=== PATIENT | female | born 1950 | race African-American/Black ===

== ENCOUNTER 2016-11-03 06:37 | Day surgery (SDC) | payer MEDICARE ==
[~2016-11-03 06:37] MED LIST: Acetaminophen TAB* 325 MG PO PRN; Buffered Lidocaine 1% SYR 3ML* 3 ML/SYR SYRINGE INTRADERM ONE
[2016-11-03] MEDS ORDERED: Midazolam* 1 MG/ML 2 ML VIAL (2 MG) ONE ×3 (07:28→08:14)
[2016-11-03 08:42] VITALS: BP 126/64
[2016-11-03] MEDS ORDERED: Phenylephrine 2.5% OPTH.SOL* 2 ML BTL ONE (09:48)
[2016-11-03] MEDS ORDERED: Lidocaine 1% MPF* 2 ML VIAL ONE (09:48)
[2016-11-03] MEDS ORDERED: Povidone Iodine 5% OPTH* 30 ML BTL ONE (09:48)
[2016-11-03] MEDS ORDERED: acetaZOLAMIDE TAB* 250 MG ONE (09:48)
[2016-11-03] MEDS ORDERED: Cyclopentolate 1% OPTH.SOL* 2 ML BTL ONE (09:48)
[2016-11-03] MEDS ORDERED: Flurbiprofen 0.03% OPTH.SOL* 2.5 ML BTL ONE (09:48)
[2016-11-03] MEDS ORDERED: Neomycin/Polymy/Dex OPHTH.OIN* 3.5 GM ONE (09:49)
[2016-11-03] MEDS ORDERED: Tetracaine 0.5% OPTH.SOL 4 ML* 1 DROP BTL ONE (09:49)
--- NOTE | 2016-11-04 03:14 | OP ---
DATE OF OPERATION: 11/03/16 - [facility] DATE OF : 52 SURGEON: Cliff Sesay MD ANESTHESIOLOGIST: Linnette Cross MD ANESTHESIA: Monitored anesthesia care. 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 OPERATIVE PROCEDURE: Cataract extraction of the left eye. IMPLANTS: SN60WF 25.0 diopter lens to the left eye. COMPLICATIONS: None. DESCRIPTION OF PROCEDURE: The patient was given phenylephrine 2.5% and cyclopentolate 1% eyedrops into the operative eye in the preoperative area. The patient was brought to the operating room, where a time-out was taken to identify the correct patient site and side of the surgery. The patient's left eye was prepped and draped in the usual sterile fashion with 5% Betadine. A second time- out was taken to verify the correct patient, site and side of the surgery and correct lens selection. A lid speculum was placed to the left eye. A 1-mm paracentesis blade was used to make a clear corneal incision in the inferotemporal position. Preservative-free 1% lidocaine was injected into the anterior chamber. DuoVisc was then injected into the anterior chamber. A 2.75- mm keratome blade was used to make a triplanar incision at the superotemporal position. A cystotome was used to initiate a capsulorrhexis, which was completed with Utrata forceps in a continuous and curvilinear manner. Hydrodissection of the lens was then performed with BSS on a cannula. The lens could be spun in the capsular bag. The phacoemulsification handpiece was then used with a divide and conquer technique to remove the nucleus in its entirety with 15.58 CDE. The I/A handpiece was then used to remove the residual cortical lens material. DuoVisc was then injected to inflate the capsular bag. The planned SN60WF 25.0 diopter lens was then injected into the capsular bag. The residual DuoVisc was then removed from the eye with the I/A handpiece. The corneal incisions were then hydrated and no leaks occurred at physiologic pressure around 20 mmHg per palpation. The lid speculum was then removed and drapes removed. Maxitrol ointment was then placed to the surface of the operative eye. An adhesive patch and shield were then placed on the operative eye. The patient was taken to the postoperative area in stable condition. [id number]/[facility] #: [id number] ALLIE
== END 2016-11-03 08:37 | disposition home or self-care (01) ==
LOC: OREAST 06:37
PROVIDERS: ATTEND Student in an Organized Health Care Education/Training Program
DX: H25.12 Age-related nuclear cataract, left eye (principal); E11.3293 Type 2 diabetes mellitus with mild nonproliferative diabetic retinopathy without macular edema, bilateral; H50.15 Alternating exotropia; F17.210 Nicotine dependence, cigarettes, uncomplicated; Z79.4 Long term (current) use of insulin; I10 Essential (primary) hypertension; B18.2 Chronic viral hepatitis C; D50.8 Other iron deficiency anemias; E78.1 Pure hyperglyceridemia; Z85.3 Personal history of malignant neoplasm of breast
CPT/HCPCS: A9270-GY; J2250; V2632

== ENCOUNTER 2016-12-17 06:26 | Observation (INO) | payer MEDICARE ==
--- NOTE | 2016-12-17 07:13 | ED ---
HPI Cardiac - HPI Summary HPI Summary: Hypertensive, diabetic pt here w/ racing heart this morning. Got up to go to the bathroom around 5:30am (urinated) and when she returned to sit on her bed, she felt a little off kilter, her eyes got cloudy and then her heart started pounding - this lasted about 5 minutes. She had gotten up a few more times in the night to urinate which she reports is somewhat normal for her. She denies fever, chills, nausea, vomiting, pain in her chest, arms, jaw or back as well as ahmet diaphoresis but admits she felt a little warm. Took 4 81mg ASA and called 911. She also notes she has baseline tinnitus and this was worse just prior to the event. Reports when her BP is elevated, her tinnitus is louder and her feet tingle w/ pins and needles. She has felt this happening over the past 1 month since starting triamterene/HCTZ. Also reports her diabetes has been worse over the past 1-2 months w/ glucose running in the 200's/300's and HGA1C was 9 recently. Quit smoking 19 days ago and has been eating more since - believes she's had a 5lb weight gain. Also reports she had a coffee yesterday which is not normal for her - this coffee included sugar and was accompanied by a donut(s) which is also more sugar than she's accustomed to consuming. Had a bite of chicken which was salty as well. Drinks 3-4 16 oz water a day. She does not have ahmet swelling in her legs but admit she's had pitting at times. H /o abnormal heart rate years ago - had cardiac monitoring in hospital and result of this work up was to start atenolol which she's taken since. Denies h/ o ID or other known arrhythmias. Denies recent h/o illness. Eating and drinking well - urinating and moving bowels well w/o pain or difficulty. Reports she had a pre-op appointment just yesterday - ECG was "good". She is anticipating knee surgery Dec 25 2016. - History of Current Complaint Chief Complaint: EDDysrhythmPalp Stated Complaint: PALPITATIONS Time Seen by Provider: 12/17/16 06:57 Hx Obtained From: Patient Pain Intensity: 0 - Allergy/Home Medications Allergies/Adverse Reactions: Allergies Allergy/AdvReac Type Severity Reaction Status Date / Time Enalapril Allergy Severe lisp Verified 12/17/16 06:44 swelling Diltiazem Allergy Unknown Verified 12/17/16 06:44 Reaction Details Verapamil Allergy Unknown Verified 12/17/16 06:44 Reaction Details PMH/Surg Hx/FS Hx/Imm Hx Previously Healthy: Yes Endocrine/Hematology History: Reports: Hx Diabetes - type 2 - IDDM, Hx Anemia - chronic Denies: Hx Anticoagulant Therapy, Hx Blood Disorders, Hx Thyroid Disease, Hx Unexplained Bleeding Cardiovascular History: Reports: Hx Cardiomegaly - slightly enlarged per md, Hx Hypertension Denies: Hx Atrial Fibrillation, Hx Myocardial Infarction, Hx Pacemaker/ICD, Hx Syncope GI History: Reports: Hx Gastroesophageal Reflux Disease, Hx Irritable Bowel, Other GI Disorders - 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 lumpectomy under right arm 2014. AVM repair 02/2016. right cataract surgery with lens implant 02/2016. right wrist surgery - carpal tunnel 1999. tubal ligation 1977 in [place]. repair of incision from tubal surgery Hx Anesthesia Reactions: No Infectious Disease History: Yes Infectious Disease History: Reports: Hx Hepatitis - Hep C possible from blood transfusions Denies: Traveled Outside the [place] in Last 30 Days - Social History Alcohol Use: None Substance Use Type: Reports: None Smoking Status (MU): Former Smoker Amount Used/How Often: 1/2 ppd Length of Time of Smoking/Using Tobacco: Quit 11/28/2016 Have You Smoked in the Last Year: Yes Review of Systems Constitutional: Negative Negative: Fever, Chills, Fatigue Positive: Blurred Vision - see HPI Cardiovascular: Other - see HPI Respiratory: Negative Negative: Shortness Of Breath, Cough Gastrointestinal: Negative Negative: Abdominal Pain, Vomiting, Diarrhea, Nausea Genitourinary: Negative Musculoskeletal: Negative Skin: Negative Neurological: Other - see HPI Negative: Headache, Weakness, Paresthesia, Numbness, Syncope, Slurred Speech Psychological: Normal All Other Systems Reviewed And Are Negative: Yes Physical Exam Triage Information Reviewed: Yes Vital Signs On Initial Exam: Initial Vitals Temp Pulse Resp BP Pulse Ox 99 F 77 16 192/86 99 12/17/16 06:29 12/17/16 06:29 12/17/16 06:29 12/17/16 06:29 12/17/16 06:29 Vital Signs Reviewed: Yes Appearance: Positive: Well-Appearing, No Pain Distress, Well-Nourished Skin: Positive: Warm, Dry Head/Face: Positive: Normal Head/Face Inspection Eyes: Positive: Normal, EOMI, Conjunctiva Clear ENT: Positive: Hearing grossly normal, Pharynx normal - mucosa moist Neck: Positive: Supple, Nontender - no gross thyromegaly Respiratory/Lung Sounds: Positive: Clear to Auscultation, Breath Sounds Present. Negative: Rales, Rhonchi, Wheezes Cardiovascular: Positive: Normal, RRR, Pulses are Symmetrical in both Upper and Lower Extremities, Leg Edema Left - +0.5 pitting edema; no pedal swelling, Leg Edema Right - +1 pitting Rt; no pedal edema, S1, S2. Negative: Murmur, Rub Abdomen Description: Positive: Nontender, Soft Bowel Sounds: Positive: Present Musculoskeletal: Positive: Normal, Strength/ROM Intact Neurological: Positive: Normal, Sensory/Motor Intact, Alert, Oriented to Person Place, Time, CN Intact II-III Psychiatric: Positive: Normal Diagnostics - Vital Signs Vital Signs Temp Pulse Resp BP Pulse Ox 12/17/16 06:29 99 F 77 16 192/86 99 - Laboratory Result Diagrams: 12/17/16 06:40 12/17/16 06:40 Lab Statement: Any lab studies that have been ordered have been reviewed, and results considered in the medical decision making process. Disposition - Course Course Of Treatment: Pt presents with worsening of tinnitus, cloudy vision and 5 minutes of heart racing starting around 5:30am after returning to bed from getting up to urinate. She took 4 tabs of 81mg of ASA and called 911. While here , she is comfortable and denies chest pain, SOB, N/V, diaphoresis. She admits to poorly controlled DM and sx of hypertension past month since taking new medication, triamterene/HCTZ. Her labs indicate a slowly progressing anemia and mild worsening of renal function (this could also be the effect of dehydration from her diuretic). She is scheduled to have Rt knee surgery Dec 25 2016 and just had a pre-op appt w/ PCP yesterday - per pt ECG was normal. Her ECG is NSR here today. Other than abnormals mentioned, her labs are unremarkable except her 2nd troponin which went from 0.00 to 0.04. Although this may be a situational effect of pt consumin caffeine and eating more salt than usual yesterday, spoke with Dr. Daniel who will admit the pt for further cardiac w/u. Pt agrees w/ plan. - Diagnoses Provider Diagnoses: Cardiac abnormality, Hypertension, Insulin dependent diabetes mellitus - Physician Notifications Discussed Care Of Patient With: Dr. Jones. Dr. Daniel Discharge - Discharge Plan Condition: Stable Disposition: ADMITTED TO [facility]
[2016-12-17 07:19] LABS: Hematocrit 30 % (35-47); Hemoglobin 9.8 g/dl (12.0-16.0); Mean Corpuscular HGB Conc 33 g/dl (31-36); Mean Corpuscular Hemoglobin 25 pg (27-31); Mean Corpuscular Volume 78 fL (80-97); Mean Platelet Volume 8 um3 (7.4-10.4); Red Blood Count 3.87 10^6/ul (4.0-5.4); Red Cell Distribution Width 18 % (10.5-15); White Blood Count 10.1 10^3/ul (3.5-10.8)
[2016-12-17 07:33] LABS: Troponin I 0.01 ng/mL (<0.04)
[2016-12-17 07:34] LABS: Albumin 3.5 g/dL (3.2-5.2); BUN/Creatinine Ratio 16.7 (8-20); EGFR African American 37.8 (>60); EGFR Non-African American 29.4 (>60); Globulin 3.6 g/dL (2-4); Magnesium 2.2 mg/dL (1.9-2.7); Potassium 3.9 mmol/L (3.5-5.0); Total Bilirubin 0.3 mg/dL (0.2-1.0); Total Protein 7.1 g/dL (6.4-8.9)
[2016-12-17 07:45] LABS: TSH (Thyroid Stimulating Horm) 2.7 mcIU/mL (0.34-5.60)
--- NOTE | 2016-12-17 07:46 | RAD ---
INDICATION: Tachycardia COMPARISON: None TECHNIQUE: An AP portable view obtained at 0700 hours is submitted. FINDINGS: Bones/Soft Tissues: There are no acute bony findings. There is right breast and axillary surgery. Cardiomediastinal: The cardiomediastinal silhouette is normal. Lungs: There are no infiltrates. There is mild platelike atelectasis in left lung base. Pleura: There are no pleural effusions. Other: None IMPRESSION: NO ACTIVE DISEASE.
[2016-12-17] MEDS ORDERED: NS 0.9% 250 ML* 150 ML IV SCH (09:00)
[2016-12-17 09:11] LABS: Urine Bacteria Absent (Absent); Urine Bilirubin Negative (Negative); Urine Glucose 1+(50 mg/dL) (Negative); Urine Nitrite Negative (Negative)
[2016-12-17] MEDS ORDERED: Acetaminophen TAB* 325 MG PO PRN (10:24)
[2016-12-17] MEDS ORDERED: Famotidine TAB* 20 MG PO PRN (10:25)
[2016-12-17] MEDS ORDERED: Dextrose 50% Syringe 50 ML* 25 GM/50 ML SYRINGE IV PUSH PRN (10:28)
[2016-12-17] MEDS: Atenolol TAB* 50 MG PO SCH ×2 (11:16→20:29)
[2016-12-17] MEDS: Ferrous Sulfate TAB* 325 MG PO SCH (11:16)
[2016-12-17] MEDS: amLODIPine TAB* 5 MG PO SCH (11:16)
[2016-12-17] MEDS: ANASTROZOLE 1 MG PO SCH (11:17)
[2016-12-17] MEDS: Insulin LISPRO* 1 UNITS UNIT SUBCUT SCH ×3 (12:09→20:32)
--- NOTE | 2016-12-17 14:02 | HP ---
HISTORY AND PHYSICAL: DATE OF ADMISSION: 12/17/16 PRIMARY CARE PROVIDER: Dr. Garcia. ONCOLOGIST: Dr. Emery. INFECTIOUS DISEASE DOCTOR: Dr. Wick. ORTHOPEDIC SURGEON: Dr. Jarvis. CHIEF COMPLAINT: Increased blood pressure, palpitations, and blurry vision. HISTORY OF PRESENT ILLNESS: Ms. Moreira is a 66-year-old female who has past medical history significant for type 2 diabetes, most recently uncontrolled hypertension, chronic hepatitis C, iron deficiency anemia and chronic kidney disease who presents to the emergency room with complaints of increased blood pressure, increased tinnitus, blurry vision and palpitations. The patient states that she awakened at approximately at 5:30 a.m. with the need to go to the bathroom. She states that she got up, she ambulated to the toilet, she urinated and walked back to her bed. As she was sitting on the edge of the bed, she began to notice that her tinnitus was much louder. She states that when her tinnitus is louder, she notes that her blood pressure is elevated. She states that she then noticed that her vision was as if she were looking through smoke which was similar to how she felt prior to having her cataracts extracted. The patient then had pounding rapid heartbeat. The patient felt like she might pass out. She checked her pulse by palpating her carotids and she noted the heart rate to be very rapid and possibly irregular. The patient states that she took 4 baby aspirin and called 911. The patient states at this point she still has tinnitus that is louder than usual but overall is feeling much improved. She does, however, note that her blood pressure is still elevated just based on how she is feeling. PAST MEDICAL HISTORY: 1. Type 2 diabetes with diabetic neuropathy. 2. Hypertension. 3. Chronic hepatitis C. 4. Tinnitus. 5. Iron-deficiency anemia. 6. History of right breast cancer. 7. Questionable hyperlipidemia. 8. Chronic kidney disease - stage 3. PAST SURGICAL HISTORY: 1. Tubal ligation. 2. Carpal tunnel release on the right. 3. Left total knee replacement. 4. Right breast lumpectomy. 5. Bilateral cataract extractions. MEDICATIONS: 1. Vitamin C 500 mg p.o. daily. 2. Glucose 8 g p.o. t.i.d. p.r.n. low blood sugar. 3. Vitamin B12 2500 mcg sublingual daily. 4. Cod liver oil one cap p.o. daily. 5. Vitamin D3 1000 units p.o. daily. 6. Calcium plus D 1 tab p.o. daily. 7. Flonase 2 squirts both nostrils daily p.r.n. allergy symptoms. 8. Lantus 20 units subcutaneous q.h.s. 9. NovoLog 2 to 5 units subcutaneous t.i.d. a.c. p.r.n. high blood sugar. 10. Vitamin E 400 units p.o. daily. 11. Magnesium 250 mg p.o. daily. 12. Zinc 50 mg p.o. daily. 13. Triamterene/hydrochlorothiazide 37.5/25 one cap p.o. daily. 14. Clonidine 0.2 mg p.o. t.i.d. 15. Ranitidine 150 mg p.o. b.i.d. p.r.n. indigestion. 16. Ativan 0.5 mg p.o. q.h.s. 17. Amlodipine 10 mg p.o. daily. 18. Atenolol 50 mg p.o. b.i.d. 19. Arimidex 1 mg p.o. daily. ALLERGIES: ENALAPRIL, DILTIAZEM and VERAPAMIL. FAMILY HISTORY: Mom at the age of 38. She was an alcoholic. She also had diabetes. Father's history is unknown but she heard that he was murdered. SOCIAL HISTORY: The patient is a former smoker, she quit 19 days ago and is very happy with her success so far. She is a former alcoholic, she quit and has been sober since 02/25/12. 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 She is . She had 3 children. One son from kidney failure but she thinks that this was related to the use of illicit drugs at a young age. She has 2 living daughters. The patient's daughter Kristal Gaitan is her healthcare proxy. REVIEW OF SYSTEMS: The patient denies any fevers, chills, or anorexia. No chest pain. She does admit to lower extremity edema since starting the triamterene/hydrochlorothiazide. She admits to palpitations as noted above. No cough. No shortness of breath. No abdominal pain, nausea, vomiting, constipation, diarrhea or hematochezia. No hematuria, no dysuria. No focal weakness or sensory loss. She does complain of a sudden blurry vision. No dysphagia. She has noted that she has been getting severe muscle cramps at night but no joint pains out of the ordinary. However, she is scheduled to have a right total knee replacement with Dr. Jarvis on December 25. She has no rashes. She does also complain of anxiety at night. PHYSICAL EXAMINATION GENERAL: The patient is a well-developed, middle-aged female sitting in the stretcher, appearing to be in no acute distress. VITAL SIGNS: Blood pressure 167/69, pulse 67, respirations 18, temp 98.9, O2 sat is 99% on room air. HEENT: Pupils are equal, they are slightly misshapen, likely related to her prior cataract extraction. Extraocular muscles are intact. Oropharynx is clear. Oral mucosa is moist. The patient wears dentures. There is no submandibular, cervical or supraclavicular adenopathy. Thyroid is not enlarged. No thyroid nodules noted. PULMONARY: Lungs are clear to auscultation bilaterally. CARDIAC: Normal S1 and S2. Regular rate and rhythm. I do not appreciate any murmurs. There is trace bilateral lower extremity edema. ABDOMEN: Bowel sounds are present. Abdomen is soft, nontender, nondistended. MUSCULOSKELETAL: There is no cyanosis or clubbing of the digits. There is full active range of motion of all 4 extremities. NEUROLOGIC: Cranial nerves II through XII are grossly intact. Sensation is intact to light touch throughout. Strength is 5/5 and symmetric in both upper and lower extremities bilaterally. SKIN: Warm and dry. There are no rashes. PSYCH: The patient is alert. She is oriented x3. Affect appears appropriate. DIAGNOSTIC STUDIES/LAB DATA: Sodium 133, potassium 3.9, chloride 98, CO2 25, BUN 29, creatinine 1.74, glucose 182, lactic acid 1.7, calcium 10.0, magnesium 2.2, bilirubin 0.3, AST 20, ALT 17, alk phos 188. Troponin 0.01 up to 0.04. Albumin 3.5, TSH 2.7. WBC 10.1, hemoglobin 9.8, hematocrit 30, platelets 397. INR 0.87. Urinalysis reveals urine with specific gravity of 1.008, 2+ proteins, trace leukocyte esterase, absent bacteria. EKG reveals normal sinus rhythm without any acute ST-T wave abnormalities. Chest x-ray, no active disease. ASSESSMENT AND PLAN: Ms. Moreira is a 66-year-old female with a history of type 2 diabetes, hypertension, possibly hyperlipidemia and chronic kidney disease, who presented to the emergency room with complaints of the sudden onset of blurry vision, worsened tinnitus and palpitations. 1. Hypertensive emergency. I suspect most of the patient's symptoms are related to hypertensive emergency. Her blood pressure remains moderately elevated at this time; however, upon initial presentation to the emergency room her blood pressure was quite elevated at 192/86. The patient has not had her medications yet today, so these will be given now. I believe that the patient' s blurry vision was likely related to her marked hypertension. The palpitations , unfortunately it is not clear if there were regular or irregular. The patient will be monitored on telemetry. She also has a slight bump in her troponin which could either be due to the rapid palpitations or hypertensive emergency. At this point, the patient will be restarted on her usual home medication regimen outside of the triamterene/hydrochlorothiazide which I believe is causing symptoms. If her blood pressure does not improve with the resumption of her atenolol, clonidine and amlodipine, we will make adjustments to this medication regimen. 2. Elevated troponin. As above, this could be due to very rapid heart rate or hypertensive emergency. As the patient has upcoming surgery, I do feel it would be imperative to follow the troponin until it peaks and obtain a stress test. I do suspect the elevated troponin at this point is just related to demand ischemia. 3. Type 2 diabetes. The patient felt that her blood sugar was dropping in the emergency room, therefore started chewing on a half stick of gum. Shortly after this, her blood pressure was taken and was in fact 251. I will go ahead and put her on fingersticks a.c. and h.s. as well as a lispro sliding scale. We will continue her home dose of Lantus. Hemoglobin A1c will be obtained as it has been 3 months since her last, which was elevated at 8.1%. 4. Iron deficiency anemia. The patient's hemoglobin and hematocrit have continued to drop over the last 3 months. She states that she has had numerous EGDs and colonoscopies in the past. At this point, I will obtain a stool guaiac and check a B12 level. She had an iron level obtained earlier this month which did confirm iron deficiency. I do not see that the patient is on iron supplementation; however, I will go ahead and start this now. 5. Chronic kidney disease. At this point, the patient's creatinine is slightly more elevated than her prior baseline over the last 3 months. We do not have any other creatinines prior to August of 2016. She does state that she was started on triamterene/hydrochlorothiazide approximately 1 month ago and this may have led to the slight increase in her creatinine. Again, the triamterene/hydrochlorothiazide is going to be discontinued due to the severe muscle cramps she has been having and we will follow the creatinine level. 6. History of right breast cancer. The patient will remain on Arimidex. 7. Chronic hepatitic C. The patient has seen Dr. Wick in the past for this. She had been prescribed Harvoni; however; her insurance will not cover. She states she is going to be appealing this decision. 8. DVT prophylaxis. According to the Adult Thrombosis Prophylaxis Risk Factor Assessment Guide, the patient has a total risk factor score of 4 making her high risk. She will be placed on heparin 5000 units subcutaneous q.8 hours. 9. Code status is full and again, the patient indicates that her daughter Kristal Gaitan is her healthcare proxy. CC: Dr. Garcia; Dr. Jarvis; Dr. Wick; Dr. Emery * [id number]/[facility] #: [id number] MTDD
[2016-12-17] MEDS: Heparin VIAL(*) 5000 UNITS/ML VIAL (FIVE THOUSAND) SUBCUT SCH ×2 (14:39→20:37)
[2016-12-17] MEDS: cloNIDine TAB* 0.1 MG PO SCH ×2 (14:41→20:29)
[2016-12-17] MEDS ORDERED: LORazepam TAB(*) 0.5 MG PO SCH (21:00)
[2016-12-17] MEDS ORDERED: Insulin GLARGINE(*) 1 UNITS UNIT SUBCUT SCH (21:00)
[2016-12-18] MEDS: Heparin VIAL(*) 5000 UNITS/ML VIAL (FIVE THOUSAND) SUBCUT SCH ×2 (06:06→13:31)
[2016-12-18] MEDS: Insulin LISPRO* 1 UNITS UNIT SUBCUT SCH ×2 (08:08→13:29)
[2016-12-18] MEDS: Ferrous Sulfate TAB* 325 MG PO SCH (08:17)
[2016-12-18] MEDS: amLODIPine TAB* 5 MG PO SCH (08:17)
[2016-12-18] MEDS: cloNIDine TAB* 0.1 MG PO SCH ×2 (08:17→13:29)
[2016-12-18] MEDS: Hydrochlorothiazide TAB* 25 MG PO SCH ×2 (08:17→08:22)
[2016-12-18] MEDS: ANASTROZOLE 1 MG PO SCH (08:18)
[2016-12-18] MEDS ORDERED: Aminophylline IV* 25 MG/ML 10 ML VIAL ONE (08:43)
[2016-12-18] MEDS ORDERED: Regadenoson* 0.4 MG/5 ML SYRINGE ONE (08:43)
[2016-12-18 11:44] VITALS: BP 132/66
[2016-12-18] MEDS: Atenolol TAB* 50 MG PO SCH (11:57)
--- NOTE | 2016-12-18 12:16 | RAD ---
INDICATION: Chest pain. Evaluate for ischemia. COMPARISON: None TECHNIQUE: A single day SPECT protocol was utilized. Rest images were acquired following the intravenous injection of 10.4 millicuries of technetium 99m tetrofosmin. Pharmacologic stress images were acquired following the intravenous administration of 25.3 millicuries of technetium 99m tetrofosmin. FINDINGS: There are no defects of the stress-induced or fixed nature. The cardiac chamber size is normal. There are no wall motion abnormalities. The ejection fraction is calculated at 75 percent during stress. IMPRESSION: NO DEFECTS OR STRESS-INDUCED OR FIXED NATURE. ASSESSMENT: LOW-RISK Based on imaging criteria from ACC/AHA 2002 Guideline Update for the Management of Patients With Chronic Stable Angina Table 23. Noninvasive Risk Stratification. Reference. HIGH-RISK (GREATER THAN 3% ANNUAL MORTALITY RATE) - Severe resting left ventricular dysfunction (LVEF < 35%) - Severe exercise left ventricular dysfunction (exercise LVEF < 35%) - Stress-induced large perfusion defect (particularly if anterior) - Stress-induced multiple perfusion defects of moderate size - Large, fixed perfusion defect with LV dilation or increased lung uptake (thallium-201) - Stress-induced moderate perfusion defect with LV dilation or increased lung uptake (thallium-201) INTERMEDIATE-RISK (1%-3% ANNUAL MORTALITY RATE) - Mild/moderate resting left ventricular dysfunction (LVEF = 35% to 49%) - Stress-induced moderate perfusion defect without LV dilation or increased lung intake (thallium-201) LOW-RISK (LESS THAN 1% ANNUAL MORTALITY RATE) - Normal or small myocardial perfusion defect at rest or with stress
--- NOTE | 2016-12-18 14:20 | PN ---
Subjective Date of Service: 12/18/16 Interval History: Pt is feeling well. No recurrence of symptoms. She did have some mild R shoulder pain earlier today but this has resolved. Objective Active Medications: Acetaminophen (Tylenol Tab*) 650 mg PO Q4H PRN PRN Reason: PAIN Amlodipine Besylate (Norvasc Tab*) 10 mg PO DAILY [facility] Last Admin: 12/18/16 08:17 Dose: 10 mg Anastrozole (Arimidex (Nf)) 1 mg PO DAILY [facility] Last Admin: 12/18/16 08:18 Dose: 1 mg Atenolol (Tenormin Tab*) 50 mg PO BID [facility] Last Admin: 12/18/16 11:57 Dose: 50 mg Clonidine HCl (Catapres Tab*) 0.2 mg PO TID [facility] Last Admin: 12/18/16 13:29 Dose: 0.2 mg Dextrose (D50w Syringe 50 Ml*) 12.5 gm IV PUSH .FOR FS < 60 - SS PRN PRN Reason: FS < 60 Famotidine (Pepcid Tab*) 20 mg PO BID PRN PRN Reason: INDIGESTION Last Admin: 12/17/16 11:16 Dose: 20 mg Ferrous Sulfate (Ferrous Sulfate Tab*) 325 mg PO DAILY [facility] Last Admin: 12/18/16 08:17 Dose: 325 mg Heparin Sodium (Porcine) (Heparin Vial(*)) 5,000 units SUBCUT Q8HR [facility] Last Admin: 12/18/16 13:31 Dose: Not Given Hydrochlorothiazide (Hydrodiuril Tab*) 25 mg PO DAILY [facility] Last Admin: 12/18/16 08:22 Dose: 25 mg Sodium Chloride (Ns 0.9% 250 Ml*) 150 mls @ 0 mls/hr IV KVO [facility] PRN Reason: KVO Last Admin: 12/17/16 08:30 Dose: 10 mls/hr Insulin Glargine (Lantus(*)) 20 units SUBCUT BEDTIME [facility] Last Admin: 12/17/16 20:35 Dose: 20 units Insulin Human Lispro (Humalog*) 0 units SUBCUT ACHS [facility] PRN Reason: Protocol Last Admin: 12/18/16 13:29 Dose: 3 units Lorazepam (Ativan Tab(*)) 0.5 mg PO BEDTIME [facility] Last Admin: 12/17/16 20:30 Dose: 0.5 mg Vital Signs 12/17/16 12/17/16 12/17/16 14:26 15:24 20:11 Temperature 97.7 F 98.4 F Pulse Rate 73 69 66 Respiratory 18 18 Rate Blood Pressure 154/70 138/60 135/59 (mmHg) O2 Sat by Pulse 98 100 Oximetry 12/17/16 12/17/16 12/17/16 20:30 22:30 23:53 Temperature 98.5 F Pulse Rate 62 Respiratory 16 16 16 Rate Blood Pressure 138/63 (mmHg) O2 Sat by Pulse 97 Oximetry 12/18/16 12/18/16 12/18/16 04:18 07:23 11:44 Temperature 98.0 F 97.4 F 98.3 F Pulse Rate 60 66 68 Respiratory 16 18 16 Rate Blood Pressure 157/71 159/71 132/66 (mmHg) O2 Sat by Pulse 99 100 100 Oximetry Appearance: Middle aged female sitting on the edge of the bed, NAD Eyes: No Scleral Icterus Ears/Nose/Mouth/Throat: Mucous Membranes Moist Respiratory: Symmetrical Chest Expansion and Respiratory Effort, Clear to Auscultation Cardiovascular: NL Sounds; No Murmurs; No JVD, RRR, No Edema Abdominal: NL Sounds; No Tenderness; No Distention Extremities: No Clubbing, Cyanosis Skin: No Rash or Ulcers, No Nodules or Sclerosis Neurological: Alert and Oriented x 3 Result Diagrams: 12/17/16 06:40 12/17/16 06:40 Assess/Plan/Problems-Billing Ms Moreira is a 66 yo F who has a h/o HTN, type II DM, chronic hepatitis C, iron deficiency anemia and stage III CKD who presented to the ER with c/o palpitations, uncontrolled BP and blurry vision. - Patient Problems (1) Hypertensive emergency Current Visit: Yes Status: Acute Code(s): I16.1 - HYPERTENSIVE EMERGENCY SNOMED Code(s): 672529062114430 Comment: Resolved. I have stopped the triamterene/HCTZ and started just HCTZ as the patient believes she worsened with the addition of the triamterene/HCTZ. She will monitor her BP and other symptoms. Continue atenolol, amlodipine and clonidine. (2) Elevated troponin Current Visit: Yes Status: Acute Code(s): R74.8 - ABNORMAL LEVELS OF OTHER SERUM ENZYMES SNOMED Code(s): 685319116 Comment: Secondary to hypertensive emergency. Stress test negative for ischemia or infarct. (3) Type II diabetes mellitus Current Visit: Yes Status: Acute Comment: Continue home medication regimen. Sugars are under fair control. (4) Stage III chronic kidney disease Current Visit: Yes Status: Acute Code(s): N18.3 - CHRONIC KIDNEY DISEASE, STAGE 3 (MODERATE) SNOMED Code(s): 830559930 Comment: Creatinine should be followed up as an outpatient. (5) Iron deficiency anemia Current Visit: Yes Status: Acute Code(s): D50.9 - IRON DEFICIENCY ANEMIA, UNSPECIFIED SNOMED Code(s): 16062195 Comment: Start ferrous sulfate. Follow as outpatient. (6) DVT prophylaxis Current Visit: Yes Status: Acute Code(s): ZAT2044 - SNOMED Code(s): 047105449 Comment: SQ heparin (7) Full code status Current Visit: Yes Status: Acute Code(s): Z78.9 - OTHER SPECIFIED HEALTH STATUS SNOMED Code(s): 491182001
--- NOTE | 2016-12-19 02:12 | DS ---
DISCHARGE SUMMARY: DATE OF ADMISSION: 12/17/16 DATE OF DISCHARGE: 12/18/16 PRIMARY CARE PROVIDER: Dr. Garcia. ORTHOPEDIC SURGEON: Dr. Jarvis. PRINCIPAL DIAGNOSIS: Hypertensive emergency - improved. SECONDARY DIAGNOSES: 1. Type 2 diabetes - uncontrolled. 2. Gastroesophageal reflux disease. 3. History of breast cancer. DISCHARGE MEDICATIONS: 1. Vitamin C 500 mg p.o. daily. 2. Glucose 8 g p.o. t.i.d. p.r.n. hypoglycemia. 3. Vitamin B12 2500 mcg sublingual daily. 4. Cod liver oil 1 cap p.o. daily. 5. Vitamin D3 1000 units p.o. daily. 6. Calcium plus D 1 tab p.o. daily. 7. Flonase 2 squirts to both nostrils twice daily p.r.n. allergies. 8. Lantus 20 units subcutaneous q.h.s. 9. NovoLog 2 to 5 units subcutaneous t.i.d. a.c. p.r.n. high blood sugar. 10. Vitamin D 400 units p.o. daily. 11. Magnesium 200 mg p.o. daily. 12. Zinc 50 mg daily. 13. Clonidine 0.2 mg p.o. t.i.d. 14. Ranitidine 150 mg p.o. b.i.d. p.r.n. GERD. 15. Amlodipine 10 mg p.o. daily. 16. Atenolol 50 mg p.o. b.i.d. 17. Anastrozole 1 mg p.o. daily. 18. Ativan 0.5 mg p.o. q.h.s. 19. Hydrochlorothiazide 12.5 mg p.o. daily. 20. Ferrous sulfate 325 mg p.o. daily. HOSPITAL COURSE: Ms. Moreira is a 66-year-old female with a history of hypertension, type 2 diabetes, and breast cancer, who presents to the emergency room with complaints of sudden onset of blurry vision, palpitations, and increased tinnitus. In the emergency room, the patient was found to have marked hypertension with blood pressure being 192/86 on presentation. The patient states that she felt as if her blood pressure was elevated at home and she has noted that when her blood pressure is high, her tinnitus is worse. The patient was admitted for evaluation of her hypertensive emergency and elevated troponin that was found in the ER. Ultimately, it was felt that the elevated troponin was likely secondary to the hypertensive emergency. She did undergo a nuclear stress test that did not reveal any evidence of ischemia or infarct. The patient's blood pressure came under fair control with resuming her usual home medication regimen except for the triamterene/hydrochlorothiazide, which the patient states has been giving her problems since starting. We have initiated just hydrochlorothiazide 12.5 mg p.o. daily. The patient understands that she will continue to take this medication instead of the triamterene/ hydrochlorothiazide. Of note, the patient has orthopedic surgery scheduled for next week. At this point, she will need continued monitoring of her blood pressure. Her diabetes is uncontrolled with hemoglobin A1c of 8.8% that came back after she was discharged home. The patient will need further adjustments in her insulin regimen. The patient's blood sugars in the hospital, however, were under fair control likely indicating that her diet is very poor at home. FOLLOWUP CONCERNS: At this time, the patient is stable for discharge home. She will follow up with Dr. Garcia in the next 4 to 7 days. ACTIVITY LEVEL: As tolerated. DIET: Heart-healthy, diabetic. CONDITION ON DISCHARGE: Stable. TIME SPENT: 25 minutes were spent discharging this patient. CC: Dr. Garcia; Dr. Jarvis* [id number]/[facility] #: [id number] ALLIE
== END 2016-12-18 14:30 | disposition home or self-care (01) ==
LOC: ED 06:26 → MEDTELE 09:12
PROVIDERS: ADMIT Hospitalist; ATTEND Hospitalist
DX: I16.1 Hypertensive emergency (principal); I12.9 Hypertensive chronic kidney disease with stage 1 through stage 4 chronic kidney disease, or unspecified chronic kidney disease; N18.3 Chronic kidney disease, stage 3 (moderate); R74.8 Abnormal levels of other serum enzymes; E11.40 Type 2 diabetes mellitus with diabetic neuropathy, unspecified; Z79.4 Long term (current) use of insulin; R00.2 Palpitations; K21.9 Gastro-esophageal reflux disease without esophagitis; Z85.3 Personal history of malignant neoplasm of breast; Z79.899 Other long term (current) drug therapy; Z88.8 Allergy status to other drugs, medicaments and biological substances; B18.2 Chronic viral hepatitis C; D50.9 Iron deficiency anemia, unspecified; Z87.891 Personal history of nicotine dependence; R07.9 Chest pain, unspecified
CPT/HCPCS: 36415; 71010; 78452; 80053; 81003; 81015; 82607; 83036; 83605; 83735; 84443; 84484; 85025; 85610; 85730; 87077; 87086; 93005; 93017; 96372; 99284; A9270-GY; A9502; G0378; J0280; J1644; J2785

== ENCOUNTER 2017-11-24 17:14 | Inpatient (IN) | payer MEDICARE ==
[2017-11-24] MEDS ORDERED: nitroGLYCERIN DRIP* 25,000 MCG/250 ML BTL IV ONE (17:29)
--- OUTSIDE RECORDS SUMMARY | 2017-11-24 17:52 | XMS REPORT ---
:1950 External Reference #:[id number] Author Organization [place] Address [address] [facility] [address] [place] [address] Phone [phone] Care Team Providers Name Role Phone Tyron Garcia MD Primary Care Physician Unavailable Payers Type Date Identification Numbers Payment Provider Subscriber Medicare Primary Policy Number: [id number] Medicare Kristal Moreira PayID: [id number] [facility] [address] [place] [address] Commercial Effective: 2016 Policy Number: [facility] [employer] Kristal Bassett [facility] [id number] Expires: 2017 Group Number: 90% [id number] Pay[facility]: [id number] [address] Advance Directives Type Date Description Status Comment Other Directive 04/20/2017 [facility] Care Proxy Current and Verified Problems Date Description Provider Status Onset: 04/29/2017 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 Iron dextran infusions 11/01/14, 02/02, 03/05/15, and 06/13/15. -normal/negative Vit. B12, SPEP/SFLCs, no evidence hemolysis -EGD 11/27/10 (few small AVMs) and colonoscopy 09/23/11 (normal) by Dr. Edgard Morales. -Despite repeated iron infusions, the only times she has had a hg>10 is with pre-operative WILLARD and after a blood transfusion. Bone marrow aspiration and biopsy 03/21/15 normal. Above obtained from old chart from previous pcp Onset: 09/19/2016 Chronic hepatitis C Ezekiel Sparks NP Active Onset: 09/19/2016 Hyperlipidemia Ezekiel Sparks NP Active Onset: 09/19/2016 Insomnia Ezekiel Sparks NP Active Onset: 09/19/2016 Colonoscopic polypectomy Ezekiel Sparks NP Active Note: Recommended repeat in 3 years: one cecal AVM Last colonoscopy 2014 EGD 03/19/15 Onset: 09/19/2016 Malignant neoplasm of female breast Ezekiel Sparks NP Active Onset: 10/08/2016 Arthritis of knee Ezekiel Sparks NP Active Note: Left knee Onset: 10/20/2016 Diabetic retinopathy Ezekiel Sparks NP Active Note: mild on 2017 eye exam; Dr. 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 06/19/15, ER+/SD+, Her2 normal Onset: 11/06/2016 Uterine leiomyoma Ezekiel Sparks NP Active Note: reviewed old chart: hx of large uterine fibroid on transvaginal u/s: 06/08/15 Onset: 11/06/2016 Midline cystocele Ezekiel Sparks NP Active Onset: 11/06/2016 Glaucoma Ezekiel Sparks NP Active Onset: 11/06/2016 Left ventricular hypertrophy Ezekiel Sparks NP Active Note: pulled from old chart from previous pcp Onset: 11/12/2016 Anxiety Ezekiel Sparks NP Active Onset: 12/22/2016 Anemia of chronic renal Ezekiel Sparks NP Active failure Onset: 06/22/2017 Ex-smoker Tyron Garcia M.D.,FACP Active Onset: 09/19/2016 Tobacco user Eezkiel Sparks NP Inactive Inactive: 06/22/2017 Family History Date Family Member(s) Problem(s) Comments Father Unknown Mother Diabetes Mother due to Diabetes () - Pneumonia/diabetes at age 38 Siblings 3 Social History Type Date Description Comments Marital Status Lives With Alone Occupation Retired Cigarette Use Light tobacco smoker (10 or fewer cigarettes/day) ETOH Use 04/20/2017 Denies alcohol use Recreational Drug Use Denies Drug Use Smoking 04/20/2017 Patient is a former smoker quit 11/25/16 Smoking Patient is a former smoker Daily Caffeine Does Not Consume Caffeine maybe once a month she is not a coffee person Exercise Type/Frequency Does not exercise General Hx Text 2 children Allergies, Adverse Reactions, Alerts Date Description Reaction Status Severity Comments 09/19/2016 Enalapril tongue swelling active Moderate to Severe 09/19/2016 Verapamil heart pounds and inc BP active Severe 09/19/2016 Diltiazem heart pound inc BP active Severe Medications Medication Date Status Form Strength Qnty SIG Indications Ordering Provider Coreg 11/19/ Active Tablets 25mg 120ta 1 by mouth I10 Ivania Camp 2018 bs twice a day Robert, N.P. Atenolol 04/22/ Active Tablets 25mg 120ta 2 tabs PO bid I10 Tyron Knight bs (on hold Chloé Garcia, 11/11/17) was Salome,FACP stopped BD Pen 01/30/ Active Misc 31G X 5 200un bid for Tyron Brunner/Mini/U 2017 mm its lantus and Chloé Garcia, ltrafine/31G tid for Salome,FACP X 11/06" novalog or as needed Metformin HCL 12/22/ Active Tablets ER 1000mg 30tab 1 tab by E11.42 Tyron ER (Mod) 2017 24HR s mouth in the Chloé Garcia, in the M.DQuita,FACP morning with first meal of the day Onetouch 09/19/ Active Strips 100un test up to E11.40 Tyron Charles Blue 2017 its four times a Chloé Garcia, day and as SalomeFACP directed Onetouch 09/19/ Active Misc 100un check BS qid E11.42 Tyron Gonzalez 2017 its and prn last Chloé Garcia, visit Salome,FACP 06/22/17 Amlodipine / Active Tablets 10mg 30tab 1 by mouth I10 Cathy Besylate 0000 s every day Taylor, SITE [employer]IABILITY ENGINEER Anastrozole / Active Tablets 1mg 1 by mouth K64.9 Unknown 0000 every day (11/03 pt not presently taking, will f/u with Dr. Emery) has stopped it pre dr emery pre pt Vitamin C / Active Capsules 500mg 1 by mouth Unknown 0000 every day Calcium 600 + 00/ Active Tablets 600-200mg 1 daily M81.0 Unknown D 0000 -Unit Vitamin D3 / Active Capsules 50,000Iu 1 po q week Unknown High Potency 0000 Fluticasone / Active Suspension 50mcg/Act 16gm 2 sprays each J30.89 Ezekiel Propionate 0000 nostril daily Irish, as needed SITE [employer]IABILITY ENGINEER Vitamin B12 / Active Tablets ER 2500mcg 1 sublingual Unknown 0000 by mouth every day Magnesium / Active Tablets 250mg 1 by mouth Unknown 0000 every day Zinc / Active Tablets 50mg one every day Unknown 0000 Vitamin E / Active Capsules 400Unit 1 by mouth Unknown 0000 every day Glucose 00/ Active Chewtabs 4gm 2 chewtabs as E11.40 Unknown 0000 neede hypoglycemia Novolog 00/ Active Solution 100Unit/M 15ml 5-7 units E11.40 Meagan Menchaca 0000 Pen-Inject L subq three D. Carlisle, times a day M.D.,FACP before meals as needed Aranesp / Active Solution 200mcg/ML SC monthly Unknown (Albumin [address] Avalos) Rupert Lantus / Active Solution 100Unit/M 15uni 20 units subq E11.40 Ivania Sindhu. Solostar 0000 Pen-Inject L ts twice a day Robert, N.P. Ranitidine / Active Capsules 150mg 60cap 1 by mouth K21.9 Cathy HCL 0000 s twice a day Taylor, as needed SITE RELIABILITY ENGINEER K62.5 Clonidine HCL Active Tablets 0.2mg 90tabs 1 by mouth I10 Cathy three times Taylor, SITE RELIABILITY ENGINEER a day Lorazepam Active Tablets 0.5mg 30tabs 1 tab at G47.00 Meagan Luevano bedtime as Carlisle, needed MDD 1 M.D.,FACP F41.9 Coreg 11/06 Hx Tablets 6.25mg 180t 2 tab by mouth I10 Ivania S. /2017 abs twice a day Robert N.P. - 11/19 Hydralazine HCL 11/03 Hx Tablets 25mg 90ta 1 by mouth I10 Qutaybeh S. /2017 bs three times/day Vinicio, - (pt not taking) MQuitaDQuita 11/09 Lancets 08/10 Hx 306u Duration of Tyron Luevano nits need--99--Lifet Jose, - audrey. E11.9 M.D.,FACP 08/10 Xultophy 06/22 Hx Solution 100-3. 15ml inject 20 units E11. Tyron Luevano Pen-Inject 6Unit- sc in in the 40 Carlisle, - mg/ML morning, [facility] 11/16 increase by units every 2 days, maximum dose 40 units 11/03/17 pt not taking, Ferrex 150 04/29 Hx Capsules 150mg 60ca 1 by mouth Tyron Luevano ps twice day Blayne Garcia M.D.,[facility] 11/02 Zepatier 03/20 Hx Tablets 50-100 30ta 1 by mouth Jhonatan Luevano mg bs every day Blayne Carey M.D. 07/06 Ferrous Sulfate 12/22 Hx Tablets 325(65 30ta 1 by mouth qd Fe) mg bs Ordering - Provider 02/16 Benazepril HCL 12/22 Hx Tablets 10mg 30ta 1 tab po qd bs MARK Sparks - 01/01 Metformin HCL 12/16 Hx Tablets 500mg 60ta 1 by mouth E11. bs twice a day 40 MARK Sparks - 12/16 Probiotic Hx Capsules 1 by mouth Unknown /0000 every day - 09/19 Triamterene/Hydrochlorot Hx Tablets 37.5-2 30ta 1 by mouth I10 Ezekiel hiazide /0000 5mg bs every day MARK Sparks - 12/22 Cod Liver Oil W/Vit A Hx Capsules 1daily E78. Unknown & D /0000 1 - 01/01 Hydrochlorothiazide Hx Tablets 25mg 30ta 1 by mouth I10 Ezekiel /0000 bs every day Irish, SITE RELIABILITY ENGINEER - 01/05 Feraheme Hx Solution 510mg/ 17 milliliters Unknown /0000 17ML iv x1, repeat - in 1 week x1 02/16 through Rupert Atenolol Hx Tablets 50mg 60ta 1 by mouth I10 Tyron Luevano /0000 bs twice daily Blayne Garcia M.D.,FACP 04/22 Clonidine HCL Hx Tablets 0.2mg 90ta 1 by mouth I10 [place] /0000 bs three times a Stacia, - karina Mcmahon 11/02 Medications Administered in Office Medication Date Status Form Strength Qnty SIG Indications Ordering Provider Depomedbobby Administered Injection Mariana 40MG 017 Salome Javier Immunizations CPT Code Status Date Vaccine Lot # [id number] Given 06/11/2017 Influenza Virus Vaccine, Quadrivalent, Split, [id number] Preservative Free [id number] Given 04/20/2017 Pneumococcal Conjugate Vaccine 13 Valent For [id number] Intramuscular Use Vital Signs Date Vital Result Comment 11/19/2017 Height 60 inches 5'0" Weight 184.00 lb Heart Rate 88 /min BP Systolic Sitting 220 mmHg lue lg cuff BP Diastolic Sitting 100 mmHg lue lg cuff Respiratory Rate 16 /min BMI (Body Mass Index) 35.9 kg/m2 Ejection Fraction 55-60% 01/14/2017 echo 11/16/2017 Weight 182.00 lb Heart Rate 79 /min BP Systolic 155 mmHg BP Diastolic 82 mmHg Body Temperature 97.6 F O2 % BldC Oximetry 99 % 11/10/2017 Heart Rate 80 /min apical BP Systolic 182 mmHg Ra, l cuff BP Diastolic 88 mmHg Ra, l cuff BP Systolic Sitting 184 mmHg LA, l cuff BP Diastolic Sitting 86 mmHg LA, l cuff BP Systolic Standing 180 mmHg LA, l cuff BP Diastolic Standing 86 mmHg LA, l cuff 11/06/2017 Height 63 inches 5'3" Weight 182.00 lb with shoes on Heart Rate 85 /min rapid BP Systolic Sitting 160 mmHg Lue reg cuff BP Diastolic Sitting 90 mmHg Lue reg cuff BP Systolic Standing 140 mmHg BP Diastolic Standing 90 mmHg Respiratory Rate 17 /min BMI (Body Mass Index) 32.2 kg/m2 Ejection Fraction 55-60% 01/14/17 11/03/2017 Height 63 inches 5'3" Weight 180.50 lb w/shoes Heart Rate 72 /min BP Systolic 210 mmHg L/Arm Reg Cuff BP Diastolic 110 mmHg L/Arm Reg Cuff BMI (Body Mass Index) 32.0 kg/m2 Ejection Fraction 55-60% Echocardiogram 01/14/2017 10/12/2017 Height 63 inches 5'3" Weight 182.00 lb Heart Rate 72 /min BP Systolic Sitting 162 mmHg BP Diastolic Sitting 90 mmHg Respiratory Rate 14 /min Body Temperature 98.6 F BMI (Body Mass Index) 32.2 kg/m2 06/22/2017 Weight 193.00 lb w/shoes, coat Heart Rate 79 /min BP Systolic Sitting 150 mmHg BP Diastolic Sitting 84 mmHg Body Temperature 97.0 F O2 % BldC Oximetry 99 % 06/11/2017 Weight 186.12 lb Heart Rate 84 /min BP Systolic Sitting 180 mmHg BP Diastolic Sitting 84 mmHg Respiratory Rate 14 /min Body Temperature 97.8 F 04/20/2017 Weight 187.00 lb Heart Rate 78 /min BP Systolic Sitting 158 mmHg BP Diastolic Sitting 82 mmHg BP Systolic Recheck 180 mmHg BP Diastolic Recheck 78 mmHg Body Temperature 97.7 F O2 % BldC Oximetry 97 % 03/19/2017 Height 63 inches 5'3" Weight 186.50 lb Heart Rate 60 /min BP Systolic Sitting 168 mmHg BP Diastolic Sitting 78 mmHg Respiratory Rate 14 /min Body Temperature 97.4 F BMI (Body Mass Index) 33.0 kg/m2 02/16/2017 Weight 184.38 lb Heart Rate 71 /min BP Systolic 136 mmHg BP Diastolic 64 mmHg BP Systolic Recheck 155 mmHg BP Diastolic Recheck 78 mmHg Body Temperature 98.6 F O2 % BldC Oximetry 98 % 01/16/2017 Height 63 inches 5'3" Weight 182.75 lb w/shoes Heart Rate 68 /min BP Systolic Sitting 142 mmHg LA, large BP Diastolic Sitting 78 mmHg LA, large BMI (Body Mass Index) 32.4 kg/m2 Ejection Fraction 55-60% echo 01/14/17 01/05/2017 Weight 180.00 lb Heart Rate 72 /min BP Systolic 130 mmHg BP Diastolic 72 mmHg Body Temperature 96.2 F O2 % BldC Oximetry 99 % 01/02/2017 Height 63 inches 5'3" Weight 177.00 lb with shoes Heart Rate 70 /min BP Systolic Sitting 128 mmHg LA reg cuff BP Diastolic Sitting 60 mmHg LA reg cuff BMI (Body Mass Index) 31.4 kg/m2 12/22/2016 Weight 176.00 lb Heart Rate 70 /min BP Systolic Sitting 188 mmHg Irregular BP Diastolic Sitting 92 mmHg Irregular BP Systolic Recheck 180 mmHg BP Diastolic Recheck 84 mmHg Body Temperature 97.8 F O2 % BldC Oximetry 98 % 12/16/2016 Weight 180.38 lb Heart Rate 62 /min BP Systolic Sitting 152 mmHg BP Diastolic Sitting 70 mmHg Body Temperature 96.6 F O2 % BldC Oximetry 97 % 11/17/2016 Height 65 inches 5'5" Weight 175.00 lb Heart Rate 60 /min BP Systolic Sitting 148 mmHg BP Diastolic Sitting 88 mmHg Respiratory Rate 14 /min Body Temperature 97.6 F BMI (Body Mass Index) 29.1 kg/m2 11/14/2016 Height 65 inches 5'5" Weight 175.00 lb Heart Rate 79 /min BP Systolic 141 mmHg BP Diastolic 73 mmHg Respiratory Rate 19 /min Body Temperature 97.3 F Pain Level 7 BMI (Body Mass Index) 29.1 kg/m2 11/13/2016 Height 65 inches 5'5" Weight 175.00 lb Heart Rate 68 /min BP Systolic Sitting 110 mmHg BP Diastolic Sitting 60 mmHg Respiratory Rate 18 /min Pain Level 9 BMI (Body Mass Index) 29.1 kg/m2 10/30/2016 Weight 177.00 lb Heart Rate 67 /min BP Systolic Sitting 154 mmHg BP Diastolic Sitting 80 mmHg Body Temperature 97.6 F O2 % BldC Oximetry 98 % 10/17/2016 Height 64 inches 5'4" Weight 175.00 lb Heart Rate 72 /min BP Systolic Sitting 158 mmHg BP Diastolic Sitting 76 mmHg Respiratory Rate 14 /min Body Temperature 97.6 F BMI (Body Mass Index) 30.0 kg/m2 10/08/2016 Weight 176.38 lb Heart Rate 72 /min BP Systolic Sitting 136 mmHg BP Diastolic Sitting 72 mmHg Body Temperature 98.4 F O2 % BldC Oximetry 98 % 09/19/2016 Height 63 inches 5'3" Weight 176.38 lb Heart Rate 70 /min BP Systolic Sitting 170 mmHg BP Diastolic Sitting 84 mmHg Body Temperature 96.8 F O2 % BldC Oximetry 98 % BMI (Body Mass Index) 31.2 kg/m2 Results Test Date Test Result H/L Range Note Laboratory test 11/19/2017 Magnesium <pending> finding Ua Routine 11/16/2017 Ua Specific [place] 1.010 Ua PH 5 Ua Color light yellow Ua Appera clear Ua WBC negative Ua Protein 500 Ua Glucose 100 Ua Ketones negative Ua Bilirubin negative Ua Urobilinogen normal Ua Nitrite negative Ua Occult Blood about 50 Laboratory test finding 10/12/2017 Hemoglobin A1c (Glyco HGB) 7.4 % High 4.0-5.6 1 Hepatitis C Rna Quant Undetected IU/mL Undetected 2 CBC Auto Diff 10/08/2017 White Blood Count 8.7 10^3/uL 3.5-10.8 Red Blood Count 3.75 10^6/uL Low 4.0-5.4 Hemoglobin 10.5 g/dL Low 12.0-16.0 Hematocrit 31 % Low 35-47 Mean Corpuscular Volume 82 fL 80-97 Mean Corpuscular Hemoglobin 28 pg 27-31 Mean Corpuscular HGB Conc 34 g/dL 31-36 Red Cell Distribution Width 16 % High 10.5-15 Platelet Count 360 10^3/uL 150-450 Mean Platelet Volume 7 um3 Low 7.4-10.4 Abs Neutrophils 5.9 10^3/uL 1.5-7.7 Abs Lymphocytes 1.9 10^3/uL 1.0-4.8 Abs Monocytes 0.8 10^3/uL 0-0.8 Abs Eosinophils 0.1 10^3/uL 0-0.6 Abs Basophils 0.1 10^3/uL 0-0.2 Abs Nucleated RBC 0 10^3/uL Granulocyte % 68.0 % 38-83 Lymphocyte % 21.7 % Low 25-47 Monocyte % 9.0 % 1-9 Eosinophil % 0.7 % 0-6 Basophil % 0.6 % 0-2 Nucleated Red Blood Cells % 0 CBC Auto Diff 08/31/2017 White Blood Count 7.6 10^3/uL 3.5-10.8 Red Blood Count 3.59 10^6/uL Low 4.0-5.4 Hemoglobin 10.1 g/dL Low 12.0-16.0 Hematocrit 30 % Low 35-47 Mean Corpuscular Volume 84 fL 80-97 Mean Corpuscular Hemoglobin 28 pg 27-31 Mean Corpuscular HGB Conc 33 g/dL 31-36 Red Cell Distribution Width 19 % High 10.5-15 Platelet Count 331 10^3/uL 150-450 Mean Platelet Volume 8 um3 7.4-10.4 Abs Neutrophils 5.1 10^3/uL 1.5-7.7 Abs Lymphocytes 1.5 10^3/uL 1.0-4.8 Abs Monocytes 0.8 10^3/uL 0-0.8 Abs Eosinophils 0.1 10^3/uL 0-0.6 Abs Basophils 0.1 10^3/uL 0-0.2 Abs Nucleated RBC 0 10^3/uL Granulocyte % 67.1 % 38-83 Lymphocyte % 20.2 % Low 25-47 Monocyte % 10.5 % High 1-9 Eosinophil % 0.8 % 0-6 Basophil % 1.4 % 0-2 Nucleated Red Blood Cells % 0 Iron & Iron Binding Capacity 08/31/2017 Iron 57 g/dL 50-212 Unsaturated Iron Binding 220 g/dL Total Iron Binding Capacity 277 g/dL 250-450 % Iron Saturation 21 % 15-55 Laboratory test finding 08/31/2017 Ferritin 542.9 ng/mL High 11-307 Vitamin D Total 25(Oh) 19.6 ng/mL Low 20-50 CBC Auto Diff 07/27/2017 White Blood Count 7.0 10^3/uL 3.5-10.8 Red Blood Count 3.21 10^6/uL Low 4.0-5.4 Hemoglobin 8.2 g/dL Low 12.0-16.0 Hematocrit 26 % Low 35-47 Mean Corpuscular Volume 80 fL 80-97 Mean Corpuscular Hemoglobin 26 pg Low 27-31 Mean Corpuscular HGB Conc 32 g/dL 31-36 Red Cell Distribution Width 19 % High 10.5-15 Platelet Count 389 10^3/uL 150-450 Mean Platelet Volume 8 um3 7.4-10.4 Abs Neutrophils 4.5 10^3/uL 1.5-7.7 Abs Lymphocytes 1.6 10^3/uL 1.0-4.8 Abs Monocytes 0.8 10^3/uL 0-0.8 Abs Eosinophils 0 10^3/uL 0-0.6 Abs Basophils 0.1 10^3/uL 0-0.2 Abs Nucleated RBC 0 10^3/uL Granulocyte % 64.6 % 38-83 Lymphocyte % 23.0 % Low 25-47 Monocyte % 11.0 % High 1-9 Eosinophil % 0.4 % 0-6 Basophil % 1.0 % 0-2 Nucleated Red Blood Cells % 0 Iron & Iron Binding Capacity 07/27/2017 Iron 64 g/dL 50-212 Unsaturated Iron Binding 306 g/dL Total Iron Binding Capacity 370 g/dL 250-450 % Iron Saturation 17 % 15-55 CBC Auto Diff 06/30/2017 White Blood Count 8.3 10^3/uL 3.5-10.8 Red Blood Count 3.50 10^6/uL Low 4.0-5.4 Hemoglobin 9.0 g/dL Low 12.0-16.0 Hematocrit 28 % Low 35-47 Mean Corpuscular Volume 79 fL Low 80-97 Mean Corpuscular Hemoglobin 26 pg Low 27-31 Mean Corpuscular HGB Conc 33 g/dL 31-36 Red Cell Distribution Width 18 % High 10.5-15 Platelet Count 389 10^3/uL 150-450 Mean Platelet Volume 7 um3 Low 7.4-10.4 Abs Neutrophils 5.5 10^3/uL 1.5-7.7 Abs Lymphocytes 1.8 10^3/uL 1.0-4.8 Abs Monocytes 0.9 10^3/uL High 0-0.8 Abs Eosinophils 0.1 10^3/uL 0-0.6 Abs Basophils 0.1 10^3/uL 0-0.2 Abs Nucleated RBC 0.01 10^3/uL Granulocyte % 66.6 % 38-83 Lymphocyte % 21.7 % Low 25-47 Monocyte % 10.3 % High 1-9 Eosinophil % 0.7 % 0-6 Basophil % 0.7 % 0-2 Nucleated Red Blood Cells % 0.1 Iron & Iron Binding Capacity 06/30/2017 Iron 99 g/dL 50-212 Unsaturated Iron Binding 301 g/dL Total Iron Binding Capacity 400 g/dL 250-450 % Iron Saturation 25 % 15-55 Laboratory test 06/22/2017 Hemoglobin A1c 8.4 High 5-7 finding Laboratory test 06/03/2017 Hepatitis C Rna Undetected IU/mL Undetected 3 finding Quant Hemoglobin/Hematocri 06/03/2017 Hemoglobin 8.9 g/dL Low 12.0-16.0 t Hematocrit 28 % Low 35-47 Laboratory test finding 06/03/2017 Ferritin 40.6 ng/mL 11-307 Iron & Iron Binding Capacity 06/03/2017 Iron 113 g/dL 50-212 Unsaturated Iron Binding 240 g/dL Total Iron Binding Capacity 353 g/dL 250-450 % Iron Saturation 32 % 15-55 Iron & Iron Binding Capacity 04/20/2017 Iron 42 g/dL Low 50-212 Unsaturated Iron Binding 302 g/dL Total Iron Binding Capacity 344 g/dL 250-450 % Iron Saturation 12 % Low 15-55 Creatinine Clearance 04/20/2017 Urine Collection Time 24 Urine Total Volume 3500 mL Urine Random Creatinine 34.91 mg/dL Creatinine 1.96 mg/dL High 0.51-0.95 Creatinine Clearance 43 mL/min Low 88-128 Laboratory test finding 04/20/2017 Uric Acid 6.7 mg/dL High 2.3-6.6 Phosphorus 5.0 mg/dL 2.5-5.0 Magnesium 2.3 mg/dL 1.9-2.7 Liver Function Panel 04/20/2017 Direct Bilirubin 0.00 mg/dL Low 0.03-0.18 Laboratory test finding 04/20/2017 Ferritin 87.4 ng/mL 11-307 CBC Auto Diff 04/20/2017 White Blood Count 9.1 10^3/uL 3.5-10.8 Red Blood Count 3.42 10^6/uL Low 4.0-5.4 Hemoglobin 9.0 g/dL Low 12.0-16.0 Hematocrit 28 % Low 35-47 Mean Corpuscular Volume 81 fL 80-97 Mean Corpuscular Hemoglobin 26 pg Low 27-31 Mean Corpuscular HGB Conc 33 g/dL 31-36 Red Cell Distribution Width 16 % High 10.5-15 Platelet Count 399 10^3/uL 150-450 Mean Platelet Volume 8 um3 7.4-10.4 Abs Neutrophils 6.7 10^3/uL 1.5-7.7 Abs Lymphocytes 1.5 10^3/uL 1.0-4.8 Abs Monocytes 0.8 10^3/uL 0-0.8 Abs Eosinophils 0 10^3/uL 0-0.6 Abs Basophils 0.1 10^3/uL 0-0.2 Abs Nucleated RBC 0 10^3/uL Granulocyte % 73.6 % 38-83 Lymphocyte % 16.4 % Low 25-47 Monocyte % 8.7 % 1-9 Eosinophil % 0.4 % 0-6 Basophil % 0.9 % 0-2 Nucleated Red Blood Cells % 0 Total Protein 24HR Urine 04/20/2017 Urine Collection Time 24 Urine Total Volume 3500 mL Urine Random Total Protein 221 mg/dL Urine Total Protein/24HR 7735 mg/24Hr High 0-165 Comp Metabolic Panel 04/20/2017 Sodium 134 mmol/L 133-145 Potassium 4.4 mmol/L 3.5-5.0 Chloride 103 mmol/L 101-111 Co2 Carbon Dioxide 25 mmol/L 22-32 Anion Gap 6 mmol/L 2-11 Glucose 165 mg/dL High 70-100 Blood Urea Nitrogen 25 mg/dL High 6-24 Creatinine 1.97 mg/dL High 0.51-0.95 One Over Creatinine 0.50 mg/dL Low 0.51-0.95 BUN/Creatinine Ratio 12.7 8-20 Calcium 9.4 mg/dL 8.6-10.3 Total Protein 6.4 g/dL 6.4-8.9 Albumin 3.3 g/dL 3.2-5.2 Globulin 3.1 g/dL 2-4 Albumin/Globulin Ratio 1.1 1-3 Total Bilirubin 0.20 mg/dL 0.2-1.0 Alkaline Phosphatase 150 U/L High 34-104 Alt 17 U/L 7-52 Ast 25 U/L 13-39 Egfr Non- 25.4 >60 Egfr 32.7 >60 4 Lipid Profile (Trig/Chol/HDL) 04/20/2017 Triglycerides 184 mg/dL 5 Cholesterol 232 mg/dL 6 HDL Cholesterol 58.4 mg/dL 7 LDL Cholesterol 137 mg/dL 8 Liver Fibrosis Panel Fibrosure 03/19/2017 Fibrosis Score 0.42 Fibrosis Stage F1-F2 Fibrosis Interpretation See Comment 9 Necroinflammat Activity Score 0.08 Necroinflammat Activity Grade A0 Necroinflammat Interpretation See Comment 10 Alpha 2 Macroglobulins, Qn 549 mg/dL 106-279 Haptoglobin 263 mg/dL 43-212 Apolipoprotein A-1 180 mg/dL 101-198 Bilirubin, Total 0.2 mg/dL 0.2-1.2 GGT 65 U/L 3-65 Alt (SGPT) 18 U/L 6-29 Reference Id [id number] Footnote See Comment 11 CBC Auto Diff 02/23/2017 White Blood Count 8.4 10^3/uL 3.5-10.8 Red Blood Count 3.43 10^6/uL Low 4.0-5.4 Hemoglobin 9.7 g/dL Low 12.0-16.0 Hematocrit 30 % Low 35-47 Mean Corpuscular Volume 87 fL 80-97 Mean Corpuscular Hemoglobin 28 pg 27-31 Mean Corpuscular HGB Conc 33 g/dL 31-36 Red Cell Distribution Width 17 % High 10.5-15 Platelet Count 322 10^3/uL 150-450 Mean Platelet Volume 8 um3 7.4-10.4 Abs Neutrophils 6.4 10^3/uL 1.5-7.7 Abs Lymphocytes 1.1 10^3/uL 1.0-4.8 Abs Monocytes 0.7 10^3/uL 0-0.8 Abs Eosinophils 0 10^3/uL 0-0.6 Abs Basophils 0.1 10^3/uL 0-0.2 Abs Nucleated RBC 0.01 10^3/uL Granulocyte % 76.9 % 38-83 Lymphocyte % 13.4 % Low 25-47 Monocyte % 8.7 % 1-9 Eosinophil % 0.3 % 0-6 Basophil % 0.7 % 0-2 Nucleated Red Blood Cells % 0.1 Comp Metabolic Panel 02/18/2017 Sodium 132 mmol/L Low 133-145 Potassium 4.9 mmol/L 3.5-5.0 Chloride 101 mmol/L 101-111 Co2 Carbon Dioxide 25 mmol/L 22-32 Anion Gap 6 mmol/L 2-11 Glucose 329 mg/dL High 70-100 Blood Urea Nitrogen 29 mg/dL High 6-24 Creatinine 1.76 mg/dL High 0.51-0.95 BUN/Creatinine Ratio 16.5 8-20 Calcium 9.0 mg/dL 8.6-10.3 Total Protein 5.8 g/dL Low 6.4-8.9 Albumin 3.0 g/dL Low 3.2-5.2 Globulin 2.8 g/dL 2-4 Albumin/Globulin Ratio 1.1 1-3 Total Bilirubin 0.20 mg/dL 0.2-1.0 Alkaline Phosphatase 148 U/L High 34-104 Alt 18 U/L 7-52 Ast 19 U/L 13-39 Egfr Non- 29.0 >60 Egfr 37.3 >60 12 HIV 1/2 AB 02/18/2017 HIV 1 2 Antibody Nonreactive Nonreactive 13 Evaluation Laboratory test 02/18/2017 Hemoglobin A1c 7.6 % High Less than 6.0 14 finding (Glyco HGB) CBC Auto Diff 01/26/2017 White Blood Count 8.0 10^3/uL 3.5-10.8 Red Blood Count 4.00 10^6/uL 4.0-5.4 Hemoglobin 11.2 g/dL Low 12.0-16.0 Hematocrit 34 % Low 35-47 Mean Corpuscular Volume 86 fL 80-97 Mean Corpuscular Hemoglobin 28 pg 27-31 Mean Corpuscular HGB Conc 33 g/dL 31-36 Red Cell Distribution Width 18 % High 10.5-15 Platelet Count 346 10^3/uL 150-450 Mean Platelet Volume 8 um3 7.4-10.4 Abs Neutrophils 5.5 10^3/uL 1.5-7.7 Abs Lymphocytes 1.5 10^3/uL 1.0-4.8 Abs Monocytes 0.9 10^3/uL High 0-0.8 Abs Eosinophils 0 10^3/uL 0-0.6 Abs Basophils 0.1 10^3/uL 0-0.2 Abs Nucleated RBC 0 10^3/uL Granulocyte % 68.3 % 38-83 Lymphocyte % 19.0 % Low 25-47 Monocyte % 11.1 % High 1-9 Eosinophil % 0.4 % 0-6 Basophil % 1.2 % 0-2 Nucleated Red Blood Cells % 0.1 Basic Metabolic Panel 01/08/2017 Sodium 134 mmol/L 133-145 Potassium 4.9 mmol/L 3.5-5.0 Chloride 102 mmol/L 101-111 Co2 Carbon Dioxide 23 mmol/L 22-32 Anion Gap 9 mmol/L 2-11 Glucose 216 mg/dL High 70-100 Blood Urea Nitrogen 37 mg/dL High 6-24 Creatinine 1.99 mg/dL High 0.51-0.95 BUN/Creatinine Ratio 18.6 8-20 Calcium 9.2 mg/dL 8.6-10.3 Egfr Non- 25.2 >60 Egfr 32.3 >60 15 Creatinine Clearance 01/01/2017 Urine Collection Time 24 Urine Total Volume 2875 mL Urine Random Creatinine 44.01 mg/dL Creatinine 1.49 mg/dL High 0.51-0.95 Creatinine Clearance 59 mL/min Low 88-128 CBC Auto Diff 12/29/2016 White Blood Count 10.7 10^3/uL 3.5-10.8 Red Blood Count 3.28 10^6/uL Low 4.0-5.4 Hemoglobin 8.4 g/dL Low 12.0-16.0 Hematocrit 26 % Low 35-47 Mean Corpuscular Volume 80 fL 80-97 Mean Corpuscular Hemoglobin 26 pg Low 27-31 Mean Corpuscular HGB Conc 32 g/dL 31-36 Red Cell Distribution Width 19 % High 10.5-15 Platelet Count 442 10^3/uL 150-450 Mean Platelet Volume 8 um3 7.4-10.4 Abs Neutrophils 7.5 10^3/uL 1.5-7.7 Abs Lymphocytes 1.7 10^3/uL 1.0-4.8 Abs Monocytes 1.3 10^3/uL High 0-0.8 Abs Eosinophils 0 10^3/uL 0-0.6 Abs Basophils 0 10^3/uL 0-0.2 Abs Nucleated RBC 0.01 10^3/uL Granulocyte % 70.6 % 38-83 Lymphocyte % 16.1 % Low 25-47 Monocyte % 12.5 % High 1-9 Eosinophil % 0.4 % 0-6 Basophil % 0.4 % 0-2 Nucleated Red Blood Cells % 0.1 Comp Metabolic Panel 12/17/2016 Sodium 133 mmol/L 133-145 Potassium 3.9 mmol/L 3.5-5.0 Chloride 98 mmol/L Low 101-111 Co2 Carbon Dioxide 25 mmol/L 22-32 Anion Gap 10 mmol/L 2-11 Glucose 182 mg/dL High 70-100 Blood Urea Nitrogen 29 mg/dL High 6-24 Creatinine 1.74 mg/dL High 0.51-0.95 BUN/Creatinine Ratio 16.7 8-20 Calcium 10.0 mg/dL 8.6-10.3 Total Protein 7.1 g/dL 6.4-8.9 Albumin 3.5 g/dL 3.2-5.2 Globulin 3.6 g/dL 2-4 Albumin/Globulin Ratio 1.0 1-3 Total Bilirubin 0.30 mg/dL 0.2-1.0 Alkaline Phosphatase 188 U/L High 34-104 Alt 17 U/L 7-52 Ast 20 U/L 13-39 Egfr Non- 29.4 >60 Egfr 37.8 >60 16 Laboratory test finding 12/17/2016 Magnesium 2.2 mg/dL 1.9-2.7 TSH (Thyroid Stim Horm) 2.70 mcIU/mL 0.34-5.60 Lactic Acid 1.7 mmol/L 0.5-2.0 17 Inr/Protime 12/17/2016 Inr 0.87 Low 0.89-1.11 Laboratory test finding 12/17/2016 Partial Thrombo Time 32.8 seconds 26.0 -36.3 PTT Vitamin B12 710 pg/mL 180-914 18 Hemoglobin A1c (Glyco HGB) 8.8 % High Less than 6.0 19 Laboratory test finding 12/17/2016 Troponin-I (TnI) 0.04 ng/mL High < 0.04 20 Urinalysis Profile 12/17/2016 Urine Color Colorless Urine Appearance Clear Urine Specific Claridge 1.008 Low 1.010-1.030 Urine pH 7.0 5-9 Urine Urobilinogen Negative Negative Urine Ketones Negative Negative Urine Protein 2+(100 mg/dL) Negative Urine Leukocytes Trace Negative Urine Blood Negative Negative Urine Nitrite Negative Negative Urine Bilirubin Negative Negative Urine Glucose 1+(50 mg/dL) Negative Urine White Blood Cell Trace(0-5/hpf) Absent Urine Red Blood Cell Absent Absent Urine Bacteria Absent Absent Urine Squamous Epithelial Cell Present Absent Urine Culture And 12/17/2016 Urine Culture SEE RESULT BELOW 21 Sensitivities CBC Auto Diff 12/17/2016 White Blood Count 10.1 10^3/uL 3.5-10.8 Red Blood Count 3.87 10^6/uL Low 4.0-5.4 Hemoglobin 9.8 g/dL Low 12.0-16.0 Hematocrit 30 % Low 35-47 Mean Corpuscular Volume 78 fL Low 80-97 Mean Corpuscular Hemoglobin 25 pg Low 27-31 Mean Corpuscular HGB Conc 33 g/dL 31-36 Red Cell Distribution Width 18 % High 10.5-15 Platelet Count 397 10^3/uL 150-450 Mean Platelet Volume 8 um3 7.4-10.4 Abs Neutrophils 6.5 10^3/uL 1.5-7.7 Abs Lymphocytes 2.5 10^3/uL 1.0-4.8 Abs Monocytes 1.0 10^3/uL High 0-0.8 Abs Eosinophils 0 10^3/uL 0-0.6 Abs Basophils 0.1 10^3/uL 0-0.2 Abs Nucleated RBC 0.01 10^3/uL Granulocyte % 64.1 % 38-83 Lymphocyte % 25.1 % 25-47 Monocyte % 9.5 % High 1-9 Eosinophil % 0.5 % 0-6 Basophil % 0.8 % 0-2 Nucleated Red Blood Cells % 0.1 Laboratory test finding 12/17/2016 Troponin-I (TnI) 0.01 ng/mL <0.04 22 Laboratory test finding 12/16/2016 Hemoglobin A1c 9.6 High 5-7 CBC Auto Diff 11/27/2016 White Blood Count 9.2 10^3/uL 3.5-10.8 Red Blood Count 4.28 10^6/uL 4.0-5.4 Hemoglobin 10.9 g/dL Low 12.0-16.0 Hematocrit 33 % Low 35-47 Mean Corpuscular Volume 78 fL Low 80-97 Mean Corpuscular Hemoglobin 25 pg Low 27-31 Mean Corpuscular HGB Conc 33 g/dL 31-36 Red Cell Distribution Width 18 % High 10.5-15 Platelet Count 405 10^3/uL 150-450 Mean Platelet Volume 8 um3 7.4-10.4 Abs Neutrophils 7.0 10^3/uL 1.5-7.7 Abs Lymphocytes 1.4 10^3/uL 1.0-4.8 Abs Monocytes 0.7 10^3/uL 0-0.8 Abs Eosinophils 0 10^3/uL 0-0.6 Abs Basophils 0.1 10^3/uL 0-0.2 Abs Nucleated RBC 0 10^3/uL Granulocyte % 76.3 % 38-83 Lymphocyte % 15.2 % Low 25-47 Monocyte % 7.4 % 1-9 Eosinophil % 0.2 % 0-6 Basophil % 0.9 % 0-2 Nucleated Red Blood Cells % 0 Comp Metabolic Panel 11/27/2016 Sodium 134 mmol/L 133-145 Potassium 4.1 mmol/L 3.5-5.0 Chloride 102 mmol/L 101-111 Co2 Carbon Dioxide 26 mmol/L 22-32 Anion Gap 6 mmol/L 2-11 Glucose 224 mg/dL High 70-100 Blood Urea Nitrogen 22 mg/dL 6-24 Creatinine 1.64 mg/dL High 0.51-0.95 BUN/Creatinine Ratio 13.4 8-20 Calcium 9.3 mg/dL 8.6-10.3 Total Protein 7.0 g/dL 6.4-8.9 Albumin 3.6 g/dL 3.2-5.2 Globulin 3.4 g/dL 2-4 Albumin/Globulin Ratio 1.1 1-3 Total Bilirubin 0.20 mg/dL 0.2-1.0 Alkaline Phosphatase 174 U/L High 34-104 Alt 26 U/L 7-52 Ast 23 U/L 13-39 Egfr Non- 31.4 >60 Egfr 40.4 >60 23 Iron & Iron Binding Capacity 11/27/2016 Iron 31 g/dL Low 50-212 Unsaturated Iron Binding 362 g/dL Total Iron Binding Capacity 393 g/dL 250-450 % Iron Saturation 8 % Low 15-55 Laboratory test finding 11/27/2016 Ferritin 106.9 ng/mL 11-307 Vitamin D Total 25(Oh) 27.1 ng/mL Low 30-50 Erythropoietin 10.1 mIU/mL 2.6 - 18.5 24 Laboratory test 11/03/2016 Point of Care 200 mg/dL High 74-106 25 finding Glucose Laboratory test 10/17/2016 Hepatitis B Surface Nonreactive Nonreactive finding Ag HCV Rna Genotype 1 10/17/2016 HCV NS5a Subtype 1b Ns5a Drug Resist HCV Daclatasvir Resistance NOT PREDICTED HCV Ledipasvir Resistance NOT PREDICTED Ombitasvir Resistance NOT PREDICTED HCV Elbasvir Resistance NOT PREDICTED HCV Velpatasvir Resistance NOT PREDICTED 26 Iron & Iron Binding Capacity 09/19/2016 Iron 35 g/dL Low 50-212 Unsaturated Iron Binding 347 g/dL Total Iron Binding Capacity 382 g/dL 250-450 % Iron Saturation 9 % Low 15-55 Lipid Profile (Trig/Chol/HDL) 09/19/2016 Triglycerides 149 mg/dL 27 Cholesterol 244 mg/dL 28 HDL Cholesterol 62.1 mg/dL 29 LDL Cholesterol 152 mg/dL 30 Laboratory test finding 09/19/2016 Hepatitis A Antibody Positive Negative 31 Total Hepatitis B [place] AB 09/19/2016 Hepatitis B Surface Nonreactive Nonreactive Titer AB Hep B Surf AB Level < 3.10 mIU/mL <12 32 Laboratory test finding 09/19/2016 Hepatitis C Rna Quant [id number] IU/mL Undetected 33 Liver Fibrosis Panel 09/19/2016 Fibrosis Score 0.44 Fibrosure Fibrosis Stage F1-F2 Fibrosis Interpretation See Comment 34 Necroinflammat Activity Score 0.06 Necroinflammat Activity Grade A0 Necroinflammat Interpretation See Comment 35 Alpha 2 Macroglobulins, Qn 556 mg/dL 106-279 36 Haptoglobin 300 mg/dL 43-212 Apolipoprotein A-1 202 mg/dL 101-198 Bilirubin, Total 0.3 mg/dL 0.2-1.2 GGT 81 U/L 3-65 Alt (SGPT) 15 U/L 6-29 Reference Id [id number] Footnote See Comment 37 Laboratory test finding 09/19/2016 Hepatitis C Genotype 1b Undetected 38 Comp Metabolic Panel 09/19/2016 Sodium 138 mmol/L 133-145 Potassium 4.6 mmol/L 3.5-5.0 Chloride 103 mmol/L 101-111 Co2 Carbon Dioxide 27 mmol/L 22-32 Anion Gap 8 mmol/L 2-11 Glucose 110 mg/dL High 70-100 Blood Urea Nitrogen 26 mg/dL High 6-24 Creatinine 1.64 mg/dL High 0.51-0.95 BUN/Creatinine Ratio 15.9 8-20 Calcium 9.6 mg/dL 8.6-10.3 Total Protein 7.0 g/dL 6.4-8.9 Albumin 3.7 g/dL 3.2-5.2 Globulin 3.3 g/dL 2-4 Albumin/Globulin Ratio 1.1 1-3 Total Bilirubin 0.30 mg/dL 0.2-1.0 Alkaline Phosphatase 177 U/L High 34-104 Alt 17 U/L 7-52 Ast 20 U/L 13-39 Egfr Non- 31.4 >60 Egfr 40.4 >60 39 Laboratory test 09/19/2016 Hemoglobin A1c 8.1 % High Less than 6.0 40 finding (Glyco HGB) Urine Microalbumin 09/19/2016 Urine Creatinine 96.64 mg/dL Random Ur Microalbumin (mg/L) > 1500.0 mg/L Urine Microalbumin/Creatinine 1552.1 ug/mg High <31 CBC Auto Diff 09/19/2016 White Blood Count 8.6 10^3/uL 3.5-10.8 Red Blood Count 4.37 10^6/uL 4.0-5.4 Hemoglobin 11.1 g/dL Low 12.0-16.0 Hematocrit 34 % Low 35-47 Mean Corpuscular Volume 78 fL Low 80-97 Mean Corpuscular Hemoglobin 25 pg Low 27-31 Mean Corpuscular HGB Conc 33 g/dL 31-36 Red Cell Distribution Width 17 % High 10.5-15 Platelet Count 421 10^3/uL 150-450 Mean Platelet Volume 8 um3 7.4-10.4 Abs Neutrophils 6.4 10^3/uL 1.5-7.7 Abs Lymphocytes 1.4 10^3/uL 1.0-4.8 Abs Monocytes 0.7 10^3/uL 0-0.8 Abs Eosinophils 0 10^3/uL 0-0.6 Abs Basophils 0.1 10^3/uL 0-0.2 Abs Nucleated RBC 0.01 10^3/uL Granulocyte % 74.3 % 38-83 Lymphocyte % 15.8 % Low 25-47 Monocyte % 8.7 % 1-9 Eosinophil % 0.4 % 0-6 Basophil % 0.8 % 0-2 Nucleated Red Blood Cells % 0.1 1 Therapeutic target for the treatment of diabetes mellitus patients is <7% HBA1C, and in selective patients <6.0%. Please refer to [place] Diabetes Association diabetic care guidelines for further information. 2 Result in log IU/mL is Undetected. ADDITIONAL INFORMATION The quantification range of this assay is 15 to 100,000,000 IU/mL (1.18 log to 8.00 log IU/mL). Testing was performed using the irasema HCV test ([employer] with the irasema [id number] System. Test Performed by: [facility] - [address] [address] 3 Result in log IU/mL is Undetected. ADDITIONAL INFORMATION The quantification range of this assay is 15 to 100,000,000 IU/mL (1.18 log to 8.00 log IU/mL). Testing was performed using the irasema HCV test ([employer] with the irasema [id number] System. Test Performed by: [facility] - [facility] [address] [facility], [place] [address] 4 Because ethnic data is not always readily available, this report includes an eGFR for both -Americans and non- Americans. The National Kidney Disease Education Program (NKDEP) does not endorse the use of the MDRD equation for patients that are not between the ages of 18 and 70, are , have extremes of body size, muscle mass, or nutritional status, or are non- or non-. According to the National Kidney Foundation, irrespective of diagnosis, the stage of the disease is based on the level of kidney function: Stage Description GFR(mL/min/1.73 m(2)) 1 Kidney damage with normal or decreased GFR 90 2 Kidney damage with mild decrease in GFR 60-89 3 Moderate decrease in GFR 30-59 4 Severe decrease in GFR 15-29 5 Kidney failure <15 (or dialysis) 5 Desirable <150 Borderline high 150-199 High 200-499 Very High >500 6 Desirable <200 Borderline high 200-239 High >239 7 Low <40 Desirable: 40-60 High: >60 8 Desirable: <100 mg/dL Near Optimal: 100-129 mg/dL Borderline High: 130-159 mg/dL High: 160-189 mg/dL Very High: >189 mg/dL 9 minimal fibrosis Fibro Test Score Metavir Score 0.00-0.21 F0 no fibrosis 0.22-0.27 F0-F1 0.28-0.31 F1 minimal fibrosis 0.32-0.48 F1-F2 0.49-0.58 F2 moderate fibrosis 0.59-0.72 F3 advanced fibrosis 0.73-0.74 F3-F4 0.75-1.00 F4 severe fibrosis 10 no activity ActiTest Score Metavir Score 0.00-0.17 A0 no activity 0.18-0.29 A0-A1 0.30-0.36 A1 minimal activity 0.37-0.52 A1-A2 0.53-0.60 A2 significant activity 0.61-0.62 A2-A3 0.63-1.00 A3 severe activity 11 The reliability of results is dependent on compliance with the preanalytical and analytical conditions recommended by [employer]. The tests have to be deferred for: acute hemolysis, acute hepatitis, acute inflammation, extra hepatic cholestasis. The advice of a specialist should be sought for interpretation in chronic hemolysis and Gilbert's syndrome. The test interpretation is not validated in liver transplant patients. Isolated extreme values of one of the components should lead to caution in interpreting the results. In case of discordance between a biopsy result and a test, it is recommended to seek the advice of a specialist. The causes of these discordances could be due to a flaw of the test or to a flaw in the biopsy: i.e. a liver biopsy has a 33% variability rate for one fibrosis stage. FibroTest is interpretable for chronic hepatitis B and C, alcoholic and non alcoholic steatosis. ActiTest is interpretable for chronic hepatitis B and C. The performance characteristics have been determined by [facility]. It has not been cleared or approved by the U.S. Food and Drug Administration. Performance characteristics refer to the analytical performance of the test. [employer], the associated logo, [employer] and all associated [employer] levy are the registered trademarks of [employer]. All third green party levy - (R) and (TM) - are the property of their respective owners. (C) [phone] [employer]. All rights reserved. Test Performed by: [employer] [address] [place] [address] 12 Because ethnic data is not always readily available, this report includes an eGFR for both -Americans and non- Americans. The National Kidney Disease Education Program (NKDEP) does not endorse the use of the MDRD equation for patients that are not between the ages of 18 and 70, are , have extremes of body size, muscle mass, or nutritional status, or are non- or non-. According to the National Kidney Foundation, irrespective of diagnosis, the stage of the disease is based on the level of kidney function: Stage Description GFR(mL/min/1.73 m(2)) 1 Kidney damage with normal or decreased GFR 90 2 Kidney damage with mild decrease in GFR 60-89 3 Moderate decrease in GFR 30-59 4 Severe decrease in GFR 15-29 5 Kidney failure <15 (or dialysis) 13 It is recognized that currently available assays for the detection of antibodies to HIV-1 and/or HIV-2 may not detect all infected individuals. HIV antibodies may be undetectable in some stages of the infection and in some clinical conditions. The performance of this assay has not been established for populations of infants or children. Assayed by Chemiluminescence Microparticle Immunoassay on the Siemens Advia Centaur CP. Values obtained with different methods or kits cannot be used interchangeably.The diagnostic specificity of the ADVIA Centaur 1/O/2 Enhanced assay in the low risk population was 99.90% (6052/6058) with a 95% confidence interval of 99.78 to 99.96%. 14 Therapeutic target for the treatment of diabetes Mellitus patients is <7% HBA1C, and in selective patients <6.0%.Please refer to [place] Diabetes Association Diabetic care guidelines for further information. 15 Because ethnic data is not always readily available, this report includes an eGFR for both -Americans and non- Americans. The National Kidney Disease Education Program (NKDEP) does not endorse the use of the MDRD equation for patients that are not between the ages of 18 and 70, are , have extremes of body size, muscle mass, or nutritional status, or are non- or non-. According to the National Kidney Foundation, irrespective of diagnosis, the stage of the disease is based on the level of kidney function: Stage Description GFR(mL/min/1.73 m(2)) 1 Kidney damage with normal or decreased GFR 90 2 Kidney damage with mild decrease in GFR 60-89 3 Moderate decrease in GFR 30-59 4 Severe decrease in GFR 15-29 5 Kidney failure <15 (or dialysis) 16 Because ethnic data is not always readily available, this report includes an eGFR for both -Americans and non- Americans. The National Kidney Disease Education Program (NKDEP) does not endorse the use of the MDRD equation for patients that are not between the ages of 18 and 70, are , have extremes of body size, muscle mass, or nutritional status, or are non- or non-. According to the National Kidney Foundation, irrespective of diagnosis, the stage of the disease is based on the level of kidney function: Stage Description GFR(mL/min/1.73 m(2)) 1 Kidney damage with normal or decreased GFR 90 2 Kidney damage with mild decrease in GFR 60-89 3 Moderate decrease in GFR 30-59 4 Severe decrease in GFR 15-29 5 Kidney failure <15 (or dialysis) 17 [facility] Severe Sepsis and Septic Shock Management Bundle Measure requires all lactic acids initially measuring >2.0 mmol/L be repeated. 18 Normal Range 180 to 914 Indeterminate Range 145 to 180 Deficient Range <145 19 Therapeutic target for the treatment of diabetes Mellitus patients is <7% HBA1C, and in selective patients <6.0%.Please refer to [place] Diabetes Association Diabetic care guidelines for further information. 20 Result TnIDx:0.04 Called to [id number] at: 09:01:43 by: Read back by: [id number] 99th percentile=0.04 ng/mL Troponin results at [facility] and [facility] are not interchangeable. 21 SEE RESULT BELOW Name: KRISTAL MOREIRA : [address]: Sherry Daniel DO Acct: [id number] Unit: [id number] AGE: 66 Location: [place] [address] Re12/17/16 Dis: 12/18/16 SEX: F Status: DIS Esthela SPEC: [id number] VINNIE: 12/17/[address]: Faye ANNA REQ: [id number] RECD: 12/17/16 STATUS: FILIBERTO MOMIN DR: Tyron Jones MD _ SOURCE: URINE SPDESC: ORDERED: Urine Culture Procedure Result Reported Site Urine Culture Final 12/18/16- 1446 ML Organism 1 STREP GROUP B [place] Count 10-25,000 (Moderate) CFU/ML Susceptibility testing of penicillins and other B-lactams approved by FDA for treatment of Streptococcus pyogenes (Group A Strep) and Streptococcus agalactiae (Group B Strep) is not necessary for clinical purposes and need not be done routinely, since as with vancomycin, resistant strains have not been recognized. (CLSI L957-C33;p.66) Positive isolates will be saved for one week. Please call the Microbiology Laboratory if further susceptibility testing is needed. * ML - MAIN LAB ([facility]) . END OF REPORT * ML=Testing performed at Main Lab DEPARTMENT OF PATHOLOGY, [address] [place] [address] Delmar Cannon M.D. Director [facility] # [id number] 22 99th percentile=0.04 ng/mL Troponin results at [facility] and [facility] are not interchangeable. 23 Because ethnic data is not always readily available, this report includes an eGFR for both -Americans and non- Americans. The National Kidney Disease Education Program (NKDEP) does not endorse the use of the MDRD equation for patients that are not between the ages of 18 and 70, are , have extremes of body size, muscle mass, or nutritional status, or are non- or non-. According to the National Kidney Foundation, irrespective of diagnosis, the stage of the disease is based on the level of kidney function: Stage Description GFR(mL/min/1.73 m(2)) 1 Kidney damage with normal or decreased GFR 90 2 Kidney damage with mild decrease in GFR 60-89 3 Moderate decrease in GFR 30-59 4 Severe decrease in GFR 15-29 5 Kidney failure <15 (or dialysis) 24 Test Performed by: [place] [address] 25 Jewel Waxer: [id number] FABIOLA GREGORIO 26 Mutations Detected: Q54Q/H,A92T/A This assay is designed to amplify HCV genotypes 1a and 1b and may not successfully amplify other HCV genotypes. This test utilizes RT-PCR and DNA sequencing to detect the presence of treatment-emergent HCV NS5a variants associated with Ns5a inhibitor antiviral therapy. The clinical significance of NS5a resistance associated variants for antiviral therapy may vary according to the clinical status and antiviral treatment experience of the HCV-infected patient. Testing for NS5a resistance-associated variants prior to initiation of treatment with elbasvir plus grazoprevir in HCV genotype 1a infected patients is recommended. For further guidance consult with the package inserts of the applicable direct acting agents and guideline documents such as the AASLD and IDSA guidelines available at http://hcvguidelines.org. For additional information, please refer to http://education.[employer].Housebites/faq/FKU698 This test was developed and its analytical Performance characteristics have been determined by [employer]. It has not been cleared or approved by the FDA. This assay has been validated pursuant to the CLIA regulations and is used for clinical purposes. Test Performed by: [facility] [address] [place] [address] 27 Desirable <150 Borderline high 150-199 High 200-499 Very High >500 28 Desirable <200 Borderline high 200-239 High >239 29 Low <40 Desirable: 40-60 High: >60 30 Desirable: <100 mg/dL Near Optimal: 100-129 mg/dL Borderline High: 130-159 mg/dL High: 160-189 mg/dL Very High: >189 mg/dL 31 Test Performed by: [place] [address] Power Shovel Mechanic: Manas Ribeiro II, M.D., Ph.D. 32 This assay does not differentiate between reactivity due to a vaccine-induced immune response or an immune response induced by infection with HBV. 33 Result in log IU/mL is 5.91. ADDITIONAL INFORMATION The quantification range of this assay is 15 to 100,000,000 IU/mL (1.18 log to 8.00 log IU/mL). Testing was performed by the IRASEMA AmpliPrep/IRASEMA TaqMan HCV Test, version 2.0 ([employer] Test Performed by: [place] [id number] Power Shovel Mechanic: Manas Ribeiro II, M.D., Ph.D. 34 minimal fibrosis Fibro Test Score Metavir Score 0.00-0.21 F0 no fibrosis 0.22-0.27 F0-F1 0.28-0.31 F1 minimal fibrosis 0.32-0.48 F1-F2 0.49-0.58 F2 moderate fibrosis 0.59-0.72 F3 advanced fibrosis 0.73-0.74 F3-F4 0.75-1.00 F4 severe fibrosis 35 no activity ActiTest Score Metavir Score 0.00-0.17 A0 no activity 0.18-0.29 A0-A1 0.30-0.36 A1 minimal activity 0.37-0.52 A1-A2 0.53-0.60 A2 significant activity 0.61-0.62 A2-A3 0.63-1.00 A3 severe activity 36 Unusual deviation with median value. 37 The reliability of results is dependent on compliance with the preanalytical and analytical conditions recommended by [employer]. The tests have to be deferred for: acute hemolysis, acute hepatitis, acute inflammation, extra hepatic cholestasis. The advice of a specialist should be sought for interpretation in chronic hemolysis and Gilbert's syndrome. The test interpretation is not validated in liver transplant patients. Isolated extreme values of one of the components should lead to caution in interpreting the results. In case of discordance between a biopsy result and a test, it is recommended to seek the advice of a specialist. The causes of these discordances could be due to a flaw of the test or to a flaw in the biopsy: i.e. a liver biopsy has a 33% variability rate for one fibrosis stage. FibroTest is interpretable for chronic hepatitis B and C, alcoholic and non alcoholic steatosis. ActiTest is interpretable for chronic hepatitis B and C. The performance characteristics have been determined by [facility]. It has not been cleared or approved by the U.S. Food and Drug Administration. Performance characteristics refer to the analytical performance of the test. [employer], [employer], the associated logo, [employer] and all associated [employer] levy are the registered trademarks of [employer]. All third green party levy - (R) and (TM) - are the property of their respective owners. (C) [id number] [employer]. All rights reserved. Test Performed by: [employer] [facility] [address] [place] [address] 38 ADDITIONAL INFORMATION This test was performed using the Lindsey RealTime HCV Genotype II assay ([employer] [place], [place]). Test Performed by: [place] [address] Power Shovel Mechanic: Manas G. Morice, II, M.D., Ph.D. 39 Because ethnic data is not always readily available, this report includes an eGFR for both -Americans and non- Americans. The National Kidney Disease Education Program (NKDEP) does not endorse the use of the MDRD equation for patients that are not between the ages of 18 and 70, are , have extremes of body size, muscle mass, or nutritional status, or are non- or non-. According to the National Kidney Foundation, irrespective of diagnosis, the stage of the disease is based on the level of kidney function: Stage Description GFR(mL/min/1.73 m(2)) 1 Kidney damage with normal or decreased GFR 90 2 Kidney damage with mild decrease in GFR 60-89 3 Moderate decrease in GFR 30-59 4 Severe decrease in GFR 15-29 5 Kidney failure <15 (or dialysis) 40 Therapeutic target for the treatment of diabetes Mellitus patients is <7% HBA1C, and in selective patients <6.0%.Please refer to [place] Diabetes Association Diabetic care guidelines for further information. Procedures Date CPT Code Description Status 11/03/2017 [address]4988 EKG Tracing & Interpretation Completed 10/13/2017 Mammogram Completed 01/14/2017 16036 ECHO Transthoracic, Real-Time 2D With Doppler And Color Completed Flow 01/07/2017 42177 Holter Monitor Review (24 hr)dr meade & interp Completed only 01/06/2017 25107 ECG Monitor/Recording W/Visual Superimposition Scanning Completed 01/02/2017 64396 EKG Tracing & Interpretation Completed 12/18/2016 95531 Treadmill Interp/Report Only Completed 12/18/2016 71791 Stress Test Supervsn W/Out I/R Completed 12/17/2016 48938 EKG, Interpretation Only Completed 12/16/2016 98788 EKG Tracing & Interpretation Completed 11/13/2016 57230 Inject Tendon Sheath Or Ligament Aponeurosis Eg Plantar Completed Fascia 10/16/2016 Diabetic Retinal Eye Exam Completed 10/03/2016 Mammogram Completed 03/12/2016 Colonoscopy Completed 05/08/2015 Mammogram Completed 09/30/2013 Mammogram Completed Encounters Type Date Location Provider CPT E/M Dx Office Visit 11/19/2017 3:30p [facility] Ivania Jones, N.P. 25681 I10 [facility] I49.3 I34.0 E78.5 R42 Office Visit 11/16/2017 2:40p [facility] Cathy Taylor, MARK [address] E11.[address] - [address] N39.0 R82.99 Office Visit 11/10/2017 2:00p [facility] [place] [address] I10 Office Visit 11/06/2017 3:30p [facility] Ivania Jones, 59873 I10 N.P. I49.3 Office Visit 11/03/2017 4:20p [facility] Josianetaybryan S. Vinicio, 57798 I10 M.D. I49.3 I34.0 E78.5 R94.31 Office Visit 10/12/2017 1:20p [facility] Miriam Carey, 31172 B18.2 Infectious Diseases M.D. K74.0 E11.69 E11.9 Office Visit 06/22/2017 2:10p [facility] Tyron Garcia, [address]66 D50.0 - [address] M.Chloé,FACP E11.42 Office Visit 06/11/2017 2:00p [facility] Miriam Carey, 72772 N18.3 Infectious Diseases M.D. Z23 K74.0 B18.2 Office Visit 04/20/2017 2:00p [facility] Tyron Garcia, 60011 N18.3 - [address] M.Chloé,FACP D50.0 E11.42 Z23 Office Visit 03/19/2017 1:20p [facility] Miriam Carey, 94404 B18.2 Infectious Diseases M.D. Office Visit 02/16/2017 4:00p [facility] Tyron Garcia, 13279 E11.42 - [address] M.DQuita,FACP Z11.4 N18.3 D50.0 Office Visit 01/16/2017 4:40p [facility] Josianetaybryan S. Vinicio, 95932 I49.3 M.D. I10 E11.42 N18.3 D63.1 Z01.810 I49.1 M17.11 I34.0 Office Visit 01/05/2017 2:00p [facility] Tyron Chloé Garcia, 10253 N18.3 - [address] M.Chloé,FACP E11.42 D63.1 Office Visit 01/02/2017 2:40p [facility] Sreedhar Mooney, 18503 I10 M.DQuita E11.42 R94.31 I49.3 Z01.810 M17.11 Office Visit 12/22/2016 1:00p [facility] - Ezekiel Sparks, MARK [address] K62.5 I10 E11.42 Office Visit 12/17/2016 2:33p [facility], Sherry Daniel, 14892 R00.2 Hospitalists Salome R74.8 I16.1 E11.42 Office Visit 12/16/2016 3:00p [facility] [place] [address] M25.561 M17.11 M25.461 E11.40 I10 D50.8 E78.1 Z85.3 Z72.0 G47.00 D63.1 B18.2 Office Visit 11/17/2016 1:20p [facility] Miriam Luevano 74457 B18.2 Infectious Diseases Salome Carey Office Visit 11/14/2016 3:30p [facility] Lisa Jarvis M.D. 17099 M25.561 Of C.M.AQuita M17.11 M25.461 Office Visit 11/13/2016 1:30p [facility] Mariana Javier, 52022 M65.332 Of C.MCorey Mcmahon Office Visit 10/30/2016 2:40p [facility] [place] [address] Z01.[address] - [address] H26.9 E11.40 I10 B18.2 D50.8 E78.1 Z85.3 Z72.0 M65.332 Office Visit 10/17/2016 8:50a [facility] Miriam Carey, 39674 B18.2 Infectious Diseases Salome Office Visit 10/08/2016 1:00p [facility] [place] [address] E11.40 - [address] I10 Z86.010 B18.2 M25.562 Office Visit 09/19/2016 8:20a [facility] - Ezekiel Irish, SITE RELIABILITY ENGINEER [address] I10 D50.8 B18.2 G47.00 E78.1 Z72.0 Z86.010 Z85.3 Plan of Care Future Appointment(s):11/24/2017 4:20 pm - Sreedhar Mooney M.D. 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
--- OUTSIDE RECORDS SUMMARY | 2017-11-24 17:53 | XMS REPORT ---
:1950 External Reference #:[id number] Author Organization [facility] Address [address] [facility] [address] [place] [address] Phone [phone] Care Team Providers Name Role Phone Tyron Garcia MD Primary Care Physician Unavailable Payers Type Date Identification Numbers Payment Provider Subscriber Medicare Primary Policy Number: [id number] Medicare Kristal Moreira PayID: [id number] [facility] [address] [place] [address] Commercial Effective: 2016 Policy Number: Belia Care Kristal Bassett [facility] [id number] Expires: 2017 Group Number: 90% [facility] PayID: [id number] [address] Advance Directives Type Date Description Status Comment Other Directive 04/20/2017 [facility] Care Proxy Current and Verified Problems Date [...] Sparks NP Active neoplasm of breast Note: [id number] 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 Atenolol 04/22/ Active Tablets 25mg 120ta 2 tabs PO bid I10 Tyron Knight bs (on hold Chloé Garcia, 11/11/17) Salome,FACP BD Pen 01/30/ Active Misc 31G X 5 200un bid for Tyron Needle/Mini/U 2017 mm its lantus and Chloé Garcia, ltrafine/31G tid for Salome,FACP X 11/06" novalog or as needed Metformin HCL 12/22/ Active Tablets ER 1000mg 30tab 1 tab by E11.42 Tyron ER (Mod) 2017 24HR s mouth in the Gabriela. Jose, in the Kathy.Chloé,FACP morning with first meal of the day Onetouch 09/19/ Active Strips 100un test up to E11.40 Tyron Charles Blue 2017 its four times a Chloé Garcia, day and as Salome,FACP directed Onetouch 09/19/ Active Misc 100un check BS qid E11.42 Tyron Gonzalez 2017 its and prn last Chloé Garcia, visit Salome,FACP 06/22/17 Amlodipine / Active Tablets 10mg 30tab 1 by mouth I10 Cathy Besylate 0000 s every day Taylor, MANAGER ZONE Anastrozole / Active Tablets 1mg 1 by mouth K64.9 Unknown 0000 every day (11/03 pt not presently taking, will f/u with Dr. Emery) Vitamin C 00/ Active Capsules 500mg 1 by mouth Unknown 0000 every day Calcium 600 + 00/ Active Tablets 600-200mg 1 daily M81.0 Unknown D 0000 -Unit Vitamin D3 / Active Capsules 50,000Iu 1 po q week Unknown High Potency 0000 Fluticasone / Active Suspension 50mcg/Act 16gm 2 sprays each J30.89 Ezekiel Propionate 0000 nostril daily Irish, as needed [employer]NAGER [employer] Vitamin B12 / Active Tablets ER 2500mcg 1 sublingual Unknown 0000 by mouth every day Magnesium / Active Tablets 250mg 1 by mouth Unknown 0000 every day Zinc / Active Tablets 50mg one every day Unknown 0000 Vitamin E / Active Capsules 400Unit 1 by mouth Unknown 0000 every day Glucose / Active Chewtabs 4gm 2 chewtabs as E11.40 Unknown 0000 neede hypoglycemia Novolog 00/ Active Solution 100Unit/M 15ml 5-7 units E11.40 Meagan Menchaca 0000 Pen-Inject L subq three D. [place], times a day M.D.,FACP before meals as needed Aranesp / Active Solution 200mcg/ML SC monthly Unknown (Albumin [address] Avalos) Rupert Lantus / Active Solution 100Unit/M 15uni 20 units subq E11.40 Ivania Solanoostar 0000 Pen-Inject L ts twice a day Robert, N.P. Ranitidine / Active Capsules 150mg 60cap 1 by mouth K21.9 Cathy HCL 0000 s twice a day Taylor, as needed MANAGER [employer] K62.5 Clonidine HCL Active Tablets 0.2mg 90tabs 1 by mouth I10 Cathy three times Taylor, MANAGER ZONE a day Lorazepam Active Tablets 0.5mg 30tabs 1 tab at G47.00 Meagan Luevano bedtime as [place], needed MDD 1 M.D.,FACP F41.9 Hydralazine HCL 11/03 Hx Tablets 25mg 90ta 1 by mouth I10 Qutaybeh S. bs three times/day Blayne Mooney (pt not taking) Salome 11/09 Lancets 08/10 Hx 306u Duration of Tyron DQuita nits need--99--Lifet Jose, - audrey. E11.9 M.D.,FACP 08/10 Xultophy 06/22 Hx Solution 100-3. 15ml inject 20 units E11. Tyron DQuita Pen-Inject 6Unit- sc in in the 40 [place], - mg/ML morning, M.D.,[facility] 11/16 increase by units every 2 days, maximum dose 40 units 11/03/17 pt not taking, Ferrex 150 04/29 Hx Capsules 150mg 60ca 1 by mouth Tyron Quita ps twice day Blayne Garcia M.D.,[facility] 11/02 Zepatier 03/20 Hx Tablets 50-100 [...] mouth I10 Ezekiel /0000 bs every day MARK Sparks - 01/05 Feraheme 00/00 Hx Solution 510mg/ 17 milliliters Unknown /0000 17ML iv x1, repeat - in 1 week x1 02/16 through Rupert Atenolol Hx Tablets 50mg 60ta 1 by mouth I10 Tyron Luevano /0000 bs twice daily Blayne Garcia M.D.,FACP 04/22 Clonidine HCL Hx Tablets 0.2mg 90ta 1 by mouth I10 Kev /0000 bs three times a Blayne Palomo M.D. 11/02 Medications Administered in Office Medication Date Status Form Strength Qnty SIG Indications Ordering Provider Depomedrol Administered Injection Mariana 40MG Manolo Javier M.D. Immunizations CPT Code Status Date Vaccine Lot # [id number] Given 06/11/2017 Influenza Virus Vaccine, Quadrivalent, Split, [id number] Preservative Free [id number] Given 04/20/2017 Pneumococcal Conjugate Vaccine 13 Valent For [id number] Intramuscular Use Vital Signs Date Vital Result Comment 11/16/2017 Weight 182.00 lb Heart Rate 79 [...] Test Result H/L Range Note Laboratory test finding 10/12/2017 Hemoglobin A1c (Glyco 7.4 % High 4.0- 5.6 1 HGB) Hepatitis C Rna Quant Undetected IU/mL Undetected [...] Iron Saturation 25 % 15-55 Laboratory test finding 06/22/2017 Hemoglobin A1c 8.4 High 5-7 Laboratory test finding 06/03/2017 Ferritin 40.6 ng/mL 11-307 Iron & Iron Binding Capacity 06/03/2017 Iron 113 g/dL 50-212 Unsaturated Iron Binding 240 g/dL Total Iron Binding Capacity 353 g/dL 250-450 % Iron Saturation 32 % 15-55 Laboratory test 06/03/2017 Hepatitis C Rna Undetected IU/mL Undetected 3 finding Quant Hemoglobin/Hematocri 06/03/2017 Hemoglobin 8.9 g/dL Low 12.0-16.0 t Hematocrit 28 % Low 35-47 Creatinine Clearance 04/20/2017 Urine Collection Time 24 Urine Total Volume 3500 mL Urine Random Creatinine 34.91 mg/dL Creatinine 1.96 mg/dL High 0.51-0.95 Creatinine Clearance 43 mL/min Low 88-128 Laboratory test finding 04/20/2017 Uric Acid 6.7 mg/dL High 2.3-6.6 Phosphorus 5.0 mg/dL 2.5-5.0 Magnesium 2.3 mg/dL 1.9-2.7 Liver Function Panel 04/20/2017 Direct Bilirubin 0.00 mg/dL Low 0.03-0.18 Lipid Profile (Trig/Chol/HDL) 04/20/2017 Triglycerides 184 mg/dL 4 Cholesterol 232 mg/dL 5 HDL Cholesterol 58.4 mg/dL 6 LDL Cholesterol 137 mg/dL 7 Comp Metabolic Panel 04/20/2017 Sodium 134 mmol/L [...] Egfr Non- 25.4 >60 Egfr 32.7 >60 8 Total Protein 24HR Urine 04/20/2017 Urine Collection Time 24 Urine Total Volume 3500 mL Urine Random Total Protein 221 mg/dL Urine Total Protein/24HR 7735 mg/24Hr High 0-165 CBC Auto Diff 04/20/2017 White Blood Count [...] % 0 Iron & Iron Binding Capacity 04/20/2017 Iron 42 g/dL Low 50-212 Unsaturated Iron Binding 302 g/dL Total Iron Binding Capacity 344 g/dL 250-450 % Iron Saturation 12 % Low 15-55 Laboratory test finding 04/20/2017 Ferritin 87.4 ng/mL 11-307 Liver Fibrosis Panel Fibrosure 03/19/2017 Fibrosis Score 0.42 Fibrosis Stage F1-F2 Fibrosis Interpretation See Comment 9 Necroinflammat Activity Score 0.08 Necroinflammat Activity Grade A0 Necroinflammat Interpretation See Comment 10 Alpha 2 Macroglobulins, Qn 549 mg/dL 106-279 Haptoglobin 263 mg/dL 43-212 Apolipoprotein A-1 180 mg/dL 101-198 Bilirubin, Total 0.2 mg/dL 0.2-1.2 GGT 65 U/L 3-65 Alt (SGPT) 18 U/L 6-29 Reference Id [id number] Footnote See Comment 11 CBC Auto Diff [...] Red Blood Cells % 0.1 Laboratory test 02/18/2017 Hemoglobin A1c 7.6 % High Less than 6.0 12 finding (Glyco HGB) HIV 1/2 AB 02/18/2017 HIV 1 2 Antibody Nonreactive Nonreactive 13 Evaluation Comp Metabolic Panel 02/18/2017 Sodium 132 mmol/L [...] Egfr Non- 29.0 >60 Egfr 37.3 >60 14 CBC Auto Diff 01/26/2017 White Blood Count [...] 0.1 Laboratory test finding 12/17/2016 Troponin-I (TnI) 0.04 ng/mL High < 0.04 16 Urinalysis Profile 12/17/2016 Urine Color Colorless Urine Appearance Clear Urine Specific [place] 1.008 Low 1.010-1.030 Urine pH 7.0 5-9 [...] And 12/17/2016 Urine Culture SEE RESULT BELOW 17 Sensitivities CBC Auto Diff 12/17/2016 White Blood [...] finding 12/17/2016 Troponin-I (TnI) 0.01 ng/mL <0.04 18 Comp Metabolic Panel 12/17/2016 Sodium 133 mmol/L [...] Egfr Non- 29.4 >60 Egfr 37.8 >60 19 Laboratory test finding 12/17/2016 Magnesium 2.2 mg/dL 1.9-2.7 TSH (Thyroid Stim Horm) 2.70 mcIU/mL 0.34-5.60 Lactic Acid 1.7 mmol/L 0.5-2.0 20 Inr/Protime 12/17/2016 Inr 0.87 Low 0.89-1.11 Laboratory test finding 12/17/2016 Partial Thrombo Time 32.8 seconds 26.0 -36.3 PTT Vitamin B12 710 pg/mL 180-914 21 Hemoglobin A1c (Glyco HGB) 8.8 % High Less than 6.0 22 Laboratory test finding 12/16/2016 Hemoglobin A1c [...] PREDICTED HCV Velpatasvir Resistance NOT PREDICTED 26 Comp Metabolic Panel 09/19/2016 Sodium 138 mmol/L [...] Egfr Non- 31.4 >60 Egfr 40.4 >60 27 Laboratory test 09/19/2016 Hemoglobin A1c 8.1 % High Less than 6.0 28 finding (Glyco HGB) Urine Microalbumin 09/19/2016 Urine [...] % 0.1 Iron & Iron Binding Capacity 09/19/2016 Iron 35 g/dL Low 50-212 Unsaturated Iron Binding 347 g/dL Total Iron Binding Capacity 382 g/dL 250-450 % Iron Saturation 9 % Low 15-55 Laboratory test finding 09/19/2016 Hepatitis C Genotype 1b Undetected 29 Liver Fibrosis Panel Fibrosure 09/19/2016 Fibrosis Score 0.44 Fibrosis Stage F1-F2 Fibrosis Interpretation See Comment 30 Necroinflammat Activity Score 0.06 Necroinflammat Activity Grade A0 Necroinflammat Interpretation See Comment 31 Alpha 2 Macroglobulins, Qn 556 mg/dL 106-279 32 Haptoglobin 300 mg/dL 43-212 Apolipoprotein A-1 202 mg/dL 101-198 Bilirubin, Total 0.3 mg/dL 0.2-1.2 GGT 81 U/L 3-65 Alt (SGPT) 15 U/L 6-29 Reference Id [id number] Footnote See Comment 33 Laboratory test finding 09/19/2016 Hepatitis C Rna Quant [id number] IU/mL Undetected 34 Hepatitis B [place] AB 09/19/2016 Hepatitis B Surface Nonreactive Nonreactive Titer AB Hep B Surf AB Level < 3.10 mIU/mL <12 35 Laboratory test finding 09/19/2016 Hepatitis A Antibody Total Positive Negative 36 Lipid Profile 09/19/2016 Triglycerides 149 mg/dL 37 (Trig/Chol/HDL) Cholesterol 244 mg/dL 38 HDL Cholesterol 62.1 mg/dL 39 LDL Cholesterol 152 mg/dL 40 1 Therapeutic target for the treatment of diabetes mellitus patients is <7% HBA1C, and in selective patients <6.0%. Please refer to [place] Diabetes Association diabetic care guidelines for further information. 2 Result in log IU/mL is Undetected. ADDITIONAL INFORMATION The quantification range of this assay is 15 to 100,000,000 IU/mL (1.18 log to 8.00 log IU/mL). Testing was performed using the irasema HCV test ([employer] with the irasema 6800 System. Test Performed by: [facility] [place] [address] 3 Result in log IU/mL is Undetected. ADDITIONAL INFORMATION The quantification range of this assay is 15 to 100,000,000 IU/mL (1.18 log to 8.00 log IU/mL). Testing was performed using the irasema HCV test ([employer] with the irasema 6800 System. Test Performed by: [place] [address] 4 Desirable <150 Borderline high 150-199 High 200-499 Very High >500 5 Desirable <200 Borderline high 200-239 High >239 6 Low <40 Desirable: 40-60 High: >60 7 Desirable: <100 mg/dL Near Optimal: 100-129 mg/dL Borderline High: 130-159 mg/dL High: 160-189 mg/dL Very High: >189 mg/dL 8 Because ethnic data is not always readily [...] 15-29 5 Kidney failure <15 (or dialysis) 9 minimal fibrosis Fibro Test Score Metavir [...] the preanalytical and analytical conditions recommended by [employer]. The tests have to be deferred for: [...] The performance characteristics have been determined by [facility]. It has not been cleared or approved by the U.S. Food and Drug Administration. Performance characteristics refer to the analytical performance of the test. [employer], [employer], the associated logo, [employer] and all associated [employer] levy are the registered trademarks of [employer]. All third libertarian levy - (R) and (TM) - are the property of their respective owners. (C) [phone] [employer]. All rights reserved. Test Performed by: [employer] [address] [place] [address] 12 Therapeutic target for the treatment of diabetes Mellitus patients is <7% HBA1C, and in selective patients <6.0%.Please refer to [place] Diabetes Association Diabetic care guidelines for further information. 13 It is recognized that currently available [...] confidence interval of 99.78 to 99.96%. 14 Because ethnic data is not always readily [...] 15-29 5 Kidney failure <15 (or dialysis) 15 Because ethnic data is not always [...] 5 Kidney failure <15 (or dialysis) 16 Result TnIDx:0.04 Called to [id number] at: 09:01:43 by: Read back by: ALEXANDER 99th percentile=0.04 ng/mL Troponin results at [facility] and [facility] are not interchangeable. 17 SEE RESULT BELOW Name: KRISTAL MOREIRA : [address]: Sherry Daniel DO Acct: [id number] Unit: [id number] AGE: 66 Location: [place] [address] Re12/17/16 Dis: 12/18/16 SEX: F Status: DIS Esthela SPEC: [id number] VINNIE: 12/17/[address]: Faye ANNA REQ: [id number] RECD: 12/17/16 STATUS: FILIBERTO MOMIN DR: Tyron Jones MD _ SOURCE: URINE [facility]: ORDERED: Urine Culture Procedure Result Reported Site Urine Culture Final 12/18/16- 1446 ML Organism 1 STREP GROUP B [place] Count 10-25,000 (Moderate) CFU/ML Susceptibility testing of penicillins and other B-lactams approved by FDA for treatment of Streptococcus pyogenes (Group A Strep) and Streptococcus agalactiae (Group B Strep) is not necessary for clinical purposes and need not be done routinely, since as with vancomycin, resistant strains have not been recognized. (CLSI J749-Q17;p.66) Positive isolates will be saved for one week. Please call the Microbiology Laboratory if further susceptibility testing is needed. * ML - MAIN LAB (PSC1) . END OF REPORT * ML=Testing performed at Main Lab DEPARTMENT OF PATHOLOGY, [address] [place] [address] Delmar Cannon M.D. Director [facility] # [id number] 18 99th percentile=0.04 ng/mL Troponin results at [facility] and [facility] are not interchangeable. 19 Because ethnic data is not always readily [...] 15-29 5 Kidney failure <15 (or dialysis) 20 [facility] Severe Sepsis and Septic Shock Management Bundle Measure requires all lactic acids initially measuring >2.0 mmol/L be repeated. 21 Normal Range 180 to 914 Indeterminate Range 145 to 180 Deficient Range <145 22 Therapeutic target for the treatment of diabetes Mellitus patients is <7% HBA1C, and in selective patients <6.0%.Please refer to [place] Diabetes Association Diabetic care guidelines for further information. 23 Because ethnic data is not always [...] <15 (or dialysis) 24 Test Performed by: [address] [address] 25 Director Of Undergraduate Admissions: [id number] FABIOLA GREGORIO 26 Mutations Detected: Q54Q/H,A92T/A This [...] http://hcvguidelines.org. For additional information, please refer to http://education.EyeCyte/faq/IIA756 This test was developed and its analytical Performance characteristics have been determined by [employer]. It has not been cleared or approved by the FDA. This assay has been validated pursuant to the CLIA regulations and is used for clinical purposes. Test Performed by: [employer]. [address] [place] [address] 27 Because ethnic data is not always readily [...] 15-29 5 Kidney failure <15 (or dialysis) 28 Therapeutic target for the treatment of diabetes Mellitus patients is <7% HBA1C, and in selective patients <6.0%.Please refer to [place] Diabetes Association Diabetic care guidelines for further information. 29 ADDITIONAL INFORMATION This test was performed using the Lindsey RealTime HCV Genotype II assay ([employer] [place], [place]). Test Performed by: [place] [address] Business Office Manager: Manas Ribeiro II, M.D., Ph.D. 30 minimal fibrosis Fibro Test Score Metavir Score 0.00-0.21 F0 no fibrosis 0.22-0.27 F0-F1 0.28-0.31 F1 minimal fibrosis 0.32-0.48 F1-F2 0.49-0.58 F2 moderate fibrosis 0.59-0.72 F3 advanced fibrosis 0.73-0.74 F3-F4 0.75-1.00 F4 severe fibrosis 31 no activity ActiTest Score Metavir Score 0.00-0.17 A0 no activity 0.18-0.29 A0-A1 0.30-0.36 A1 minimal activity 0.37-0.52 A1-A2 0.53-0.60 A2 significant activity 0.61-0.62 A2-A3 0.63-1.00 A3 severe activity 32 Unusual deviation with median value. 33 The reliability of results is dependent on compliance with the preanalytical and analytical conditions recommended by [employer]. The tests have to be deferred for: [...] The performance characteristics have been determined by [facility]. It has not been cleared or approved by the U.S. Food and Drug Administration. Performance characteristics refer to the analytical performance of the test. [employer], the associated logo, [employer] and all associated [employer] levy are the registered trademarks of [employer]. All third libertarian levy - (R) and (TM) - are the property of their respective owners. (C) [phone] [employer]. All rights reserved. Test Performed by: [employer] [address] [place] [id number] 34 Result in log IU/mL is 5.91. ADDITIONAL INFORMATION The quantification range of this assay is 15 to 100,000,000 IU/mL (1.18 log to 8.00 log IU/mL). Testing was performed by the IRASEMA AmpliPrep/IRASEMA TaqMan HCV Test, version 2.0 ([employer] Test Performed by: [place] [address] Business Office Manager: Manas Ribeiro II, M.D., Ph.D. 35 This assay does not differentiate between reactivity due to a vaccine-induced immune response or an immune response induced by infection with HBV. 36 Test Performed by: [place] [address] Business Office Manager: Manas Ribeiro II, M.D., Ph.D. 37 Desirable <150 Borderline high 150-199 High 200-499 Very High >500 38 Desirable <200 Borderline high 200-239 High >239 39 Low <40 Desirable: 40-60 High: >60 40 Desirable: <100 mg/dL Near Optimal: 100-129 mg/dL Borderline High: 130-159 mg/dL High: 160-189 mg/dL Very High: >189 mg/dL Procedures Date CPT Code Description Status 11/03/2017 87439 EKG Tracing & Interpretation Completed 10/13/2017 Mammogram Completed 01/14/2017 11599 ECHO Transthoracic, Real-Time 2D With Doppler And Color Completed Flow 01/07/2017 49754 Holter Monitor Review (24 hr)dr halina & interp Completed only 01/06/2017 86795 ECG Monitor/Recording W/Visual Superimposition Scanning Completed 01/02/2017 82971 EKG Tracing & Interpretation Completed 12/18/2016 69652 Treadmill Interp/Report Only Completed 12/18/2016 31189 Stress Test Supervsn W/Out I/R Completed 12/17/2016 57276 EKG, Interpretation Only Completed 12/16/2016 77782 EKG Tracing & Interpretation Completed 11/13/2016 82715 Inject Tendon Sheath Or Ligament Aponeurosis Eg Plantar Completed Fascia 10/16/2016 Diabetic Retinal Eye Exam Completed 10/03/2016 Mammogram Completed 03/12/2016 Colonoscopy Completed 05/08/2015 Mammogram Completed 09/30/2013 Mammogram Completed Encounters Type Date Location Provider CPT E/M Dx Office Visit 11/10/2017 2:00p [facility] [place] [address] I10 Office Visit 11/06/2017 3:30p [facility], N.P. [address] I10 [facility] I49.3 Office Visit 11/03/2017 4:20p [facility] Josianetaaaliyah Mooney, 316[address] I10 M.Chloé I49.3 I34.0 E78.5 R94.31 Office Visit 10/12/2017 1:20p [facility] Miriam Carey, [address] B18.2 Infectious Diseases Salome K74.0 E11.69 E11.9 Office Visit 06/22/2017 2:10p [facility] Internal Medicine Tyron Garcia, [address] [address]50[address] - [address] Salome,FACP E11.42 Office Visit 06/11/2017 2:00p [facility] Miriam Denneyen, 62132 N18.3 Infectious Diseases M.D. Z23 K74.0 B18.2 Office Visit 04/20/2017 2:00p [facility] Medicine Tyron Garcia, [address]306 N18.[address] - [address] Salome,FACP D50.0 E11.42 Z23 Office Visit 03/19/2017 1:20p [facility] Jhonatan Carey, 96917 B18.2 Infectious Diseases M.D. Office Visit 02/16/2017 4:00p [facility] Internal Medicine Tyron Garcia, [address]26 E11.42 - [address] MYahir,FACP Z11.4 N18.3 D50.0 Office Visit 01/16/2017 4:40p [facility] SQuita Mooney, [address] I49.3 M.D. I10 E11.42 N18.3 D63.1 Z01.810 I49.1 M17.11 I34.0 Office Visit 01/05/2017 2:00p [facility] Internal Medicine Tyron Garcia, [address] N18.3 - [address] MYahir,FACP E11.42 D63.1 Office Visit 01/02/2017 2:40p [facility] S. Robbie, [address]25[address] I10 M.DQuita E11.42 R94.31 I49.3 Z01.810 M17.11 Office Visit 12/22/2016 1:00p [facility] [place] [address] K62.5 I10 E11.42 Office Visit 12/17/2016 2:33p [facility], Sherry Daniel, 48296 R00.2 Hospitalists M.D. R74.8 I16.1 E11.42 Office Visit 12/16/2016 3:00p [facility] [place] [address] M25.561 M17.11 M25.461 E11.40 I10 D50.8 E78.1 Z85.3 Z72.0 G47.00 D63.1 B18.2 Office Visit 11/17/2016 1:20p [facility] Jhonatan Luevano [address]14 B18.2 Infectious Diseases Salome Carey Office Visit 11/14/2016 3:30p [facility] Lisa Jarvis M.D. 60787 M25.561 Of Ezio M17.11 M25.461 Office Visit 11/13/2016 1:30p [facility] Mariana Javier, 81394 M65.332 Of Ezio Mcmahon Office Visit 10/30/2016 2:40p [facility] [place] [address] Z01.[address] - [address] H26.9 E11.40 I10 B18.2 D50.8 E78.1 Z85.3 Z72.0 M65.332 Office Visit 10/17/2016 8:50a [facility] Miriam Carey, 99491 B18.2 Infectious Nelida Mcmahon Office Visit 10/08/2016 1:00p [facility] [place] [address] [address]11.[address] - [address] I10 Z86.010 B18.2 M25.562 Office Visit 09/19/2016 8:20a [facility] [place] [address] I10 D50.8 B18.2 G47.00 E78.1 Z72.0 Z86.010 Z85.3 Plan of Care Future Appointment(s):02/17/2018 4:00 pm - Tyron Garcia M.D.,FACP at [facility] Internal Medicine - [address]/19/2017 3:30 pm - Ivania Jones N.P. at [facility]/16/2017 - Cathy Taylor, MARKE11.9 Type 2 diabetes mellitus without complicationsComments:You are meeting goal for blood sugar control. Changes to medications are not indicated. Your last A1C was 7.4 improved from 8.4. A yearly nutrition visit is available to all diabetics. Continue with eating healthy foods Your BP is improving - F/U 11/19 with Cardiology as plannedFollow up:3 months, [address] Gold:Goal Hemoglobin A1c is less than 7.0%. Goal Blood pressure is less than 130/85. Goal LDL (bad cholesterol) is less than 100.N39.0 Urinary tract infection, site not specifiedNew Labs:Urinalysis ProfileComments:Your urine shows no infectionDrink plenty of liquids
--- OUTSIDE RECORDS SUMMARY | 2017-11-24 17:54 | XMS REPORT ---
:1950 External Reference #:[id number] Author Organization [place] [employer] Address [address] [facility] [address] [place] [address] Phone [phone] Care Team Providers Name Role Phone Tyron Garcia MD Primary Care Physician Unavailable Payers Type Date Identification Numbers Payment Provider Subscriber Medicare Primary Policy Number: [id number] Medicare Kristal Moreira PayID: [id number] [facility] [address] [place] [address] Commercial Effective: 2016 Policy Number: Belia Care Kristal Bassett [facility] [id number] Expires: 2017 Group Number: 90% [id number]: [id number] [address] Advance Directives Type Date Description Status Comment Other Directive 04/20/2017 [facility] Care Proxy Current and Verified Problems Date [...] Sparks NP Active neoplasm of breast Note: [id number] Stage 2a Invasive ductal carcinoma of the [...] Onset: 12/22/2016 Anemia of chronic renal Ezekiel Sparsk NP Active failure Onset: 06/22/2017 Ex-smoker Tyron [...] Provider Coreg 11/06/ Active Tablets 6.25mg 180ta 1 tab by I10 Ivania Camp 2017 bs mouth twice a , N.P. Hydralazine 11/03/ Active Tablets 25mg 90tab 1 by mouth I10 Qutaybeh HCL 2018 s three S. times/day (pt Maghaydah not taking) , MYahir Xultophy 06/22/ Active Solution 100-3.6Un 15ml inject 20 E11.40 Meagan Sloan 2016 Pen-Inject it-mg/ML units sc in Chloé Garcia, in the M.D.,FACP morning, increase by 2 units every 2 days, maximum dose 40 units 11/03/17 pt not taking, Atenolol 04/22/ Active Tablets 25mg 120ta 2 tabs PO bid I10 Tyron 2016 bs Chloé Garcia M.D.,FACP BD Pen 01/30/ Active Misc 31G X 5 200un bid for Tyron Needle/Mini/U 2017 mm its lantus and Chloé Garcia, ltrafine/31G tid for M.D.,FACP X 11/06" novalog or as needed Metformin HCL 12/22/ Active Tablets ER 1000mg 30tab 1 tab by E11.42 Tyron ER (Mod) 2017 24HR s mouth in the Chloé Garcia, in the M.D.,FACP morning with first meal of the day Onetouch 09/19/ Active Strips 100un test up to E11.40 Tyron Ultra Blue 2016 its four times a Gabriela. Jose, day and as Salome,FACP directed Onetouch 09/19/ Active Misc 100un check BS qid E11.42 Tyron Gonzalez 2016 its and prn last Chloé Garcia, visit Salome,FACP 06/22/17 Amlodipine / Active Tablets 10mg 30tab 1 by mouth I10 Tyron Besylate 0000 s every day Chloé Garcia M.D.,FACP Anastrozole / Active Tablets 1mg 1 by [...] each J30.89 Ezekiel Propionate 0000 nostril daily Cuban, as needed ABLE SEAMAN Vitamin B12 / Active Tablets ER 2500mcg 1 sublingual Unknown 0000 by mouth every day Magnesium 00/ Active Tablets 250mg 1 by mouth Unknown 0000 every day Zinc 00/ Active Tablets 50mg one every day Unknown 0000 Vitamin E / Active Capsules 400Unit 1 by mouth Unknown 0000 every day Glucose 00/ Active Chewtabs 4gm 2 chewtabs as E11.40 Unknown 0000 neede hypoglycemia Novolog 00// Active Solution 100Unit/M 15ml 5-7 units E11.40 Meagan Sloan Flexpen 0000 Pen-Inject L subq three DQuita Garcia, times a day Salome,FACP before meals as needed Aranesp 00/ Active Solution 200mcg/ML SC monthly Unknown (Albumin [address] Avalos) Rupert Lantus 00/ Active Solution 100Unit/M 15uni 20 units subq E11.40 Ivania S. Solostar 0000 Pen-Inject L ts twice a day Robert, N.P. Ranitidine / Active Capsules 150mg 60cap 1 by mouth K21.9 Kev HCL 0000 s twice a day Pachikara as needed , M.D. K62.5 Clonidine HCL Active Tablets 0.2mg 90tabs 1 by mouth I10 Kev three times Pachikara, a day M.D. Lorazepam Active Tablets 0.5mg 30tabs 1 tab at G47.00 Meagan Luevano bedtime as Jose, araceli MDD Salome,FACP 1 F41.9 Lancets 08/10 Hx 306un Duration of Tyron Luevano its need--99--Lifeti Jose, - me. E11.9 M.Chloé,FACP 08/10 Ferrex 150 04/29 Hx Capsules 150mg 60cap 1 by mouth twice Tyron Luevano s day Blayne Garcia M.D.,FACP 11/02 Zepatier 03/20 Hx Tablets 50-100m 30tab 1 by mouth every Jhonatan Luevano g s day Blayne Carey M.D. 07/06 Ferrous Sulfate 12/22 Hx Tablets 325(65F 30tab 1 by mouth qd e) mg s Ordering - Provider 02/16 Benazepril HCL 12/22 Hx Tablets 10mg 30tab 1 tab po qd s MARK Sparks - 01/01 Metformin HCL 12/16 Hx Tablets 500mg 60tab 1 by mouth twice E11. s a day 40 MARK Sparks - 12/16 Probiotic Hx Capsules 1 by mouth every Unknown /0000 day - 09/19 Triamterene/Hydrochlorot Hx Tablets 37.5-25 30tab 1 by mouth every I10 Ezekiel hiazide /0000 mg s day MARK Sparks - 12/22 Cod Liver Oil W/Vit A Hx Capsules 1daily E78. Unknown & D /0000 1 - 01/01 Hydrochlorothiazide Hx Tablets 25mg 30tab 1 by mouth every I10 Ezekiel / s day MARK Sparks - 01/05 Feraheme Hx Solution 510mg/1 17 milliliters Unknown /0000 7ML iv x1, repeat in - 1 week x1 02/16 through Quita /2016 Rupert Atenolol 00 Hx Tablets 50mg 60tab 1 by mouth twice I10 Tyron Luevano /0000 s daily Blayne Garcia M.D.,FACP 04/22 Clonidine HCL 00/ Hx Tablets 0.2mg 90tab 1 by mouth three I10 Kev /0000 s times a day Blayne Palomo M.D. 11/02 Medications Administered in Office Medication Date Status Form Strength Qnty SIG Indications Ordering Provider Depomedrol Administered Injection Mariana 40MG Manolo Javier M.D. Immunizations CPT Code Status Date Vaccine Lot # 61439 Given 06/11/2017 Influenza Virus Vaccine, Quadrivalent, Split, [id number] Preservative Free 21382 Given 04/20/2017 Pneumococcal Conjugate Vaccine 13 Valent For [id number] Intramuscular Use Vital Signs Date Vital Result Comment 11/06/2017 Height 63 inches 5'3" Weight 182.00 [...] finding 06/22/2017 Hemoglobin A1c 8.4 High 5-7 Hemoglobin/Hematocrit 06/03/2017 Hemoglobin 8.9 g/dL Low 12.0-16.0 Hematocrit 28 % Low 35-47 Laboratory test finding 06/03/2017 Ferritin 40.6 ng/mL 11-307 Iron & Iron Binding Capacity 06/03/2017 Iron 113 g/dL 50-212 Unsaturated Iron Binding 240 g/dL Total Iron Binding Capacity 353 g/dL 250-450 % Iron Saturation 32 % 15-55 Laboratory test 06/03/2017 Hepatitis C Rna Quant Undetected IU/mL Undetected 3 finding Creatinine Clearance 04/20/2017 Urine Collection Time 24 [...] 0-2 Nucleated Red Blood Cells % 0 Laboratory test finding 04/20/2017 Ferritin 87.4 ng/mL 11-307 Iron & Iron Binding Capacity 04/20/2017 Iron 42 g/dL Low 50-212 Unsaturated Iron Binding 302 g/dL Total Iron Binding Capacity 344 g/dL 250-450 % Iron Saturation 12 % Low 15-55 Liver Fibrosis Panel Fibrosure 03/19/2017 Fibrosis Score 0.42 Fibrosis Stage F1-F2 Fibrosis Interpretation See Comment 9 Necroinflammat Activity Score 0.08 Necroinflammat Activity Grade A0 Necroinflammat Interpretation See Comment 10 Alpha 2 Macroglobulins, Qn 549 mg/dL 106-279 Haptoglobin 263 mg/dL 43-212 Apolipoprotein A-1 180 mg/dL 101-198 Bilirubin, Total 0.2 mg/dL 0.2-1.2 GGT 65 U/L 3-65 Alt (SGPT) 18 U/L 6-29 Reference Id [id number] Footnote See Comment 11 CBC Auto Diff [...] Color Colorless Urine Appearance Clear Urine Specific Evergreen 1.008 Low 1.010-1.030 Urine pH 7.0 5-9 [...] >60 Egfr 40.4 >60 27 Laboratory test finding 09/19/2016 Hemoglobin A1c (Glyco 8.1 % High Less than 6.0 28 HGB) Laboratory test finding 09/19/2016 Hepatitis C Genotype 1b Undetected 29 Liver Fibrosis Panel 09/19/2016 Fibrosis Score 0.44 Fibrosure Fibrosis Stage F1-F2 Fibrosis Interpretation See Comment 30 Necroinflammat Activity Score 0.06 Necroinflammat Activity Grade A0 Necroinflammat Interpretation See Comment 31 Alpha 2 Macroglobulins, Qn 556 mg/dL 106-279 32 Haptoglobin 300 mg/dL 43-212 Apolipoprotein A-1 202 mg/dL 101-198 Bilirubin, Total 0.3 mg/dL 0.2-1.2 GGT 81 U/L 3-65 Alt (SGPT) 15 U/L 6-29 Reference Id [id number] Footnote See Comment 33 Laboratory test finding 09/19/2016 Hepatitis C Rna Quant 470874 IU/mL Undetected 34 Hepatitis B Chinyere AB 09/19/2016 Hepatitis B Surface Nonreactive Nonreactive Titer AB Hep B Surf AB Level < 3.10 mIU/mL <12 35 Laboratory test finding 09/19/2016 Hepatitis A Antibody Total Positive Negative 36 Lipid Profile 09/19/2016 Triglycerides 149 mg/dL 37 (Trig/Chol/HDL) Cholesterol 244 mg/dL 38 HDL Cholesterol 62.1 mg/dL 39 LDL Cholesterol 152 mg/dL 40 Iron & Iron Binding Capacity 09/19/2016 Iron 35 g/dL Low 50-212 Unsaturated Iron Binding 347 g/dL Total Iron Binding Capacity 382 g/dL 250-450 % Iron Saturation 9 % Low 15-55 CBC Auto Diff 09/19/2016 White Blood Count [...] 0-2 Nucleated Red Blood Cells % 0.1 Urine Microalbumin Random 09/19/2016 Urine Creatinine 96.64 mg/dL Ur Microalbumin (mg/L) > 1500.0 mg/L Urine Microalbumin/Creatinine 1552.1 ug/mg High <31 1 Therapeutic target for the treatment of diabetes mellitus patients is <7% HBA1C, and in selective patients <6.0%. Please refer to [place] Diabetes Association diabetic care guidelines for further information. 2 Result in log IU/mL is Undetected. ADDITIONAL INFORMATION The quantification range of this assay is 15 to 100,000,000 IU/mL (1.18 log to 8.00 log IU/mL). Testing was performed using the irasema HCV test ([employer] with the irasema 6800 System. Test Performed by: [place] [address] 3 Result in log IU/mL is Undetected. ADDITIONAL INFORMATION The quantification range of this assay is 15 to 100,000,000 IU/mL (1.18 log to 8.00 log IU/mL). Testing was performed using the irasema HCV test ([employer] with the irasema 6800 System. Test Performed by: [place] [address] 4 Desirable <150 Borderline high 150-199 High [...] the preanalytical and analytical conditions recommended by [employer]. The tests have to be deferred for: [...] The performance characteristics have been determined by [employer] [place]. It has not been cleared or approved by the U.S. Food and Drug Administration. Performance characteristics refer to the analytical performance of the test. [employer], the associated logo, [facility] and all associated [employer] levy are the registered trademarks of [employer]. All third alliance party levy - (R) and (TM) - are the property of their respective owners. (C) 3130-7874 [employer]. All rights reserved. Test Performed by: [employer] [address] [place] [address] 12 Because ethnic data is not always [...] and in selective patients <6.0%.Please refer to [place] Diabetes Association Diabetic care guidelines for further [...] (or dialysis) 16 Result TnIDx:0.04 Called to [id number] at: 09:01:43 by: Read back by: [id number] 99th percentile=0.04 ng/mL Troponin results at [facility] and [facility] are not interchangeable. 17 SEE RESULT BELOW Name: KRISTAL MOREIRA : [address]: Sherry Daniel DO Acct: [id number] Unit: [id number] AGE: 66 Location: [place] [address] Re12/17/16 Dis: 12/18/16 SEX: F Status: DIS Esthela SPEC: [id number] VINNIE: 12/17/[address] [facility] [address]: Faye ANNA REQ: [id number] RECD: 12/17/16 STATUS: COMP [facility] DR: Tyron Jones MD _ SOURCE: URINE SPDESC: ORDERED: Urine Culture Procedure Result Reported Site Urine Culture Final 12/18/16- 1446 ML Organism 1 STREP GROUP B [place]abel Count 10-25,000 (Moderate) CFU/ML Susceptibility testing of penicillins and other B-lactams approved by FDA for treatment of Streptococcus pyogenes (Group A Strep) and Streptococcus agalactiae (Group B Strep) is not necessary for clinical purposes and need not be done routinely, since as with vancomycin, resistant strains have not been recognized. (CLSI E569-H28;p.66) Positive isolates will be saved for one week. Please call the Microbiology Laboratory if further susceptibility testing is needed. * ML - MAIN LAB ([facility]) . END OF REPORT * ML=Testing performed at Main Lab DEPARTMENT OF PATHOLOGY, [address] [place] [address] Delmar Cannon M.D. Director [facility] # [id number] 18 99th percentile=0.04 ng/mL Troponin results at [facility] and [facility] are not interchangeable. 19 Because [...] 5 Kidney failure <15 (or dialysis) 20 [facility] Severe Sepsis and Septic Shock Management Bundle Measure requires all lactic acids initially measuring >2.0 mmol/L be repeated. 21 Normal Range 180 to 914 Indeterminate Range 145 to 180 Deficient Range <145 22 Therapeutic target for the treatment of diabetes Mellitus patients is <7% HBA1C, and in selective patients <6.0%.Please refer to [place] Diabetes Association Diabetic care guidelines for further [...] <15 (or dialysis) 24 Test Performed by: [address] [address] 25 Form Presser: NAVJOT GREGORIO 26 Mutations Detected: [id number]/[id number] This assay [...] http://hcvguidelines.org. For additional information, please refer to http://invino.[facility]/faq/WUJ532 This test was developed and its analytical Performance characteristics have been determined by [employer]. It has not been cleared or approved by the FDA. This assay has been validated pursuant to the CLIA regulations and is used for clinical purposes. Test Performed by: [employer]. [address] [place] [address] 27 Because ethnic data is not always [...] and in selective patients <6.0%.Please refer to [place] Diabetes Association Diabetic care guidelines for further information. 29 ADDITIONAL INFORMATION This test was performed using the Lindsey RealTime HCV Genotype II assay ([employer] [place], [place]). Test Performed by: [place] [address] Overlock Waistline Joiner: Manas Ribeiro II, M.D., Ph.D. 30 minimal [...] The performance characteristics have been determined by [employer] [facility] [place]. It has not been cleared or approved by the U.S. Food and Drug Administration. Performance characteristics refer to the analytical performance of the test. Quest, [employer], the associated logo, [facility] and all associated [employer] levy are the registered trademarks of [employer]. All third alliance party levy - (R) and (TM) - are the property of their respective owners. (C) 8425-4497 [employer]. All rights reserved. Test Performed by: [employer] [address] [place] [address] 34 Result in log IU/mL is 5.91. ADDITIONAL INFORMATION The quantification range of this assay is 15 to 100,000,000 IU/mL (1.18 log to 8.00 log IU/mL). Testing was performed by the IRASEMA AmpliPrep/IRASEMA TaqMan HCV Test, version 2.0 ([employer] Test Performed by: [place] [address] Overlock Waistline Joiner: Manas Ribeiro II, M.D., Ph.D. 35 This assay does not differentiate between reactivity due to a vaccine-induced immune response or an immune response induced by infection with HBV. 36 Test Performed by: [place] [address] Overlock Waistline Joiner: Manas Ribeiro II, M.D., Ph.D. 37 Desirable <150 Borderline high 150-199 High 200-499 Very High >500 38 Desirable <200 Borderline high 200-239 High >239 39 Low <40 Desirable: 40-60 High: >60 40 Desirable: <100 mg/dL Near Optimal: 100-129 mg/dL Borderline High: 130-159 mg/dL High: 160-189 mg/dL Very High: >189 mg/dL Procedures Date CPT Code Description Status 11/03/2017 19380 EKG Tracing & Interpretation Completed 10/13/2017 Mammogram Completed 01/14/2017 32401 ECHO Transthoracic, Real-Time 2D With Doppler And Color Completed Flow 01/07/2017 74624 Holter Monitor Review (24 hr)dr meade & interp Completed only 01/06/2017 79549 ECG Monitor/Recording W/Visual Superimposition Scanning Completed 01/02/2017 13975 EKG Tracing & Interpretation Completed 12/18/2016 08511 Treadmill Interp/Report Only Completed 12/18/2016 82446 Stress Test Supervsn W/Out I/R Completed 12/17/2016 27819 EKG, Interpretation Only Completed 12/16/2016 23722 EKG Tracing & Interpretation Completed 11/13/2016 32397 Inject Tendon Sheath Or Ligament Aponeurosis Eg Plantar Completed Fascia 10/16/2016 Diabetic Retinal Eye Exam Completed 10/03/2016 Mammogram Completed 03/12/2016 Colonoscopy Completed 05/08/2015 Mammogram Completed 09/30/2013 Mammogram Completed Encounters Type Date Location Provider CPT E/M Dx Office Visit 10/12/2017 [facility] Miriam Carey, [address] B18.2 1:20p Infectious Diseases M.DQuita K74.0 E11.69 E11.9 Office Visit 06/22/2017 2:10p [facility] Tyron Garcia, [address] D50.0 - Tbviktor Best M.D.,FACP E11.42 Office Visit 06/11/2017 2:00p [facility] Miriam Carey, [address] N18.3 Infectious Diseases M.DQuita Z23 K74.0 B18.2 Office Visit 04/20/2017 2:00p [facility] Tyron Garcia, [address] N18.3 - [place]ir Mcmahon,FACP D50.0 E11.42 Z23 Office Visit 03/19/2017 1:20p [facility] Miriam Carey, [address] B18.2 Infectious Diseases M.DQuita Office Visit 02/16/2017 4:00p [facility] Tyron Garcia, [address] E11.42 - [place] Nasir Mcmahon,FACP Z11.4 N18.3 D50.0 Office Visit 01/16/2017 4:40p [facility] Sreedhar Mooney, [address] I49.3 M.DQuita I10 E11.42 N18.3 D63.1 Z01.810 I49.1 M17.11 I34.0 Office Visit 01/05/2017 2:00p [facility] Tyron Garcia, [address] N18.3 - [address] M.DQuita,FACP E11.42 D63.1 Office Visit 01/02/2017 2:40p [facility] Conrado Mooney, [address] I10 M.DQuita E11.42 R94.31 I49.3 Z01.810 M17.11 Office Visit 12/22/2016 1:00p [facility] - Ezekiel Sparks, MARK [address] K62.5 I10 E11.42 Office Visit 12/17/2016 2:33p [facility], Sherry Daniel, [address] R00.2 Hospitalists Salome R74.8 I16.1 E11.42 Office Visit 12/16/2016 3:00p [facility] [place] [address] M25.561 M17.11 M25.461 E11.40 I10 D50.8 E78.1 Z85.3 Z72.0 G47.00 D63.1 B18.2 Office Visit 11/17/2016 1:20p [facility] Miriam Luevano [address] B18.2 Infectious Diseases Salome Carey Office Visit 11/14/2016 3:30p [facility] Lisa Jarvis M.D. 35435 M25.561 Of C.M.Toshia M17.11 M25.461 Office Visit 11/13/2016 1:30p [facility] Mariana Javier, [address]404 M65.332 Of CBoni Mcmahon Office Visit 10/30/2016 2:40p [facility] [place] [address] Z01.[address] H26.9 E11.40 I10 B18.2 D50.8 E78.1 Z85.3 Z72.0 M65.332 Office Visit 10/17/2016 8:50a [facility] Miriam Carey, [address]79 B18.2 Infectious Diseases M.D. Office Visit 10/08/2016 1:00p [facility] Ezekiel Sparks, [place] [address] E11.[address] - [address] I10 Z86.010 B18.2 M25.562 Office Visit 09/19/2016 8:20a [facility] [place] [address] I10 D50.8 B18.2 G47.00 E78.1 Z72.0 Z86.010 Z85.3 Plan of Care Future Appointment(s):11/11/2017 3:40 pm - Cathy Taylor NP at [facility] - [address]11/19/2017 3:30 pm - Ivania Jones N.P. at [facility]11/10/2017 2:00 pm - Nurse Visit cc at [facility]11/06/2017 - Ivania Jones, N.P.I10 Essential (primary) hypertensionNew Medication:Coreg 6.25 mgComments:Your BP is still high 195/ 110Follow up:f/u as scheduled with me on 11/19/2017Recommendations:Stop Atenolol Start Coreg 6.25mg oral twice daily; You will have a BP check on Thursday and likely wewill increase medication. Continue Amlodipine 10mg twice daily Continue Clonidine 0.2mg oral three xdaily. Check BP twice daily and call on Thursday if BP reading still over 160.I49.3 Ventricular premature depolarization
--- OUTSIDE RECORDS SUMMARY | 2017-11-24 17:55 | XMS REPORT ---
:1950 External Reference #:[id number] Author Organization [employer] Address [address] [facility] [address] [place] [address] Phone [phone] Care Team Providers Name Role Phone Tyron Garcia MD Primary Care Physician Unavailable Payers Type Date Identification Numbers Payment Provider Subscriber Medicare Primary Policy Number: [id number] Medicare Kristal Moreira PayID: [id number] [facility] [address] [place] [address] Commercial Effective: 2016 Policy Number: Belia Care Kristal Bassett Lillie [id number] Expires: 2017 Group Number: 90% [id number]: [id number] [address] Advance Directives Type Date Description Status Comment Other Directive 04/20/2017 [facility] Care Proxy Current and Verified Problems [...] 11/06/2016 Personal history of primary malignant Ezekiel Sparsk NP Active neoplasm of breast Note: [id number] 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 times/day Salome Mooney Xultophy 06/22/ Active Solution 100-3.6Un 15ml inject 20 E11.40 Meagan Sloan 2016 Pen-Inject it-mg/ML units sc in Chloé Garcia, in the M.D.,FACP morning, increase by 2 units every 2 days, maximum dose 40 units 11/03/17 pt not taking, PMD Atenolol 04/22/ Active Tablets 25mg 120ta 2 tabs PO bid I10 Tyron 2017 bs Chloé Garcia M.D.,FACP BD Pen 01/30/ [...] test up to E11.40 Tyron Ultra Blue 2017 its four times a Chloé Garcia, day and as Salome,FACManohar directed Onetouch 09/19/ Active Misc 100un check [...] will f/u with Dr. Emery) Vitamin C / Active Capsules 500mg 1 by mouth Unknown 0000 every day Calcium 600 + / Active Tablets 600-200mg 1 daily M81.0 Unknown D 0000 -Unit Vitamin D3 / Active Capsules 50,000Iu 1 po q week Unknown High Potency 0000 Fluticasone / Active Suspension 50mcg/Act 16gm 2 sprays each J30.89 Ezekiel Propionate 0000 nostril daily Tristanian, as needed ABRASIV[employer] SALES REPRESENTATIVE Vitamin B12 / Active Tablets ER 2500mcg [...] Sloan Flexpen 0000 Pen-Inject L subq three Chloé Garcia, times a day Salome,ROMAP before meals as needed Aranesp / Active Solution 200mcg/ML SC monthly Unknown (Albumin [address] Avalos) Rupert Lantus / Active Solution 100Unit/M 15uni 20 units subq E11.40 Kenji Titus Solostar 0000 Pen-Inject L ts twice a day Chloé Garcia M.D.,FACP Ranitidine / Active Capsules 150mg 60cap 1 by mouth K21.9 [place] HCL 0000 s twice a day Pachikara as needed , M.D. K62.5 Clonidine HCL Active Tablets 0.2mg 90tabs 1 by mouth I10 Kev three times Pachikara, a day Salome Lorazepam Active Tablets 0.5mg 30tabs 1 tab at G47.00 Meagan Luevano bedtime as Jose, needed MDD Kathy.Chloé,FACP 1 F41.9 Lancets 08/10 Hx 306un Duration of Tyron Luevano its need--99--Lifeti Jose, - me. E11.9 Kathy.Chloé,FACP 08/10 Ferrex 150 04/29 Hx Capsules 150mg 60cap 1 by mouth twice Tyron Luevano /2016 s day Blayne Garcia M.D.,FACP 11/02 Zepatier 03/20 Hx Tablets 50-100m 30tab 1 by mouth every Jhonatan Luevano /2016 g s day Blayne Carey M.D. 07/06 Ferrous Sulfate 12/22 Hx Tablets 325(65F 30tab 1 by mouth qd /2017 e) mg s Ordering - Provider 02/16 Benazepril HCL 12/22 Hx Tablets 10mg 30tab 1 tab po qd s MARK Sparks - 01/01 Metformin HCL 12/16 Hx Tablets 500mg 60tab 1 by mouth twice E11. s a day 40 MARK Sparks - 12/16 Probiotic Hx Capsules 1 by mouth every Unknown / day - 09/19 Triamterene/Hydrochlorot Hx Tablets 37.5-25 30tab 1 by mouth every I10 Ezekiel hiazide /0000 mg s day MRAK Sparks - 12/22 Cod Liver Oil W/Vit A Hx Capsules 1daily E78. Unknown & D / 1 - 01/01 Hydrochlorothiazide Hx Tablets 25mg 30tab 1 by mouth every I10 Ezekiel / s day MARK Sparks - 01/05 Feraheme Hx Solution 510mg/1 17 milliliters Unknown /0000 7ML iv x1, repeat in - 1 week x1 02/16 through /2016 Rupert Atenolol 00/00 Hx Tablets 50mg 60tab 1 by mouth twice I10 Tyron Luevano /0000 s daily Blayne Garcia M.D.,FACP 04/22 Clonidine HCL 00/00 Hx Tablets 0.2mg 90tab 1 by mouth three I10 [place] /0000 s times a day Blayne Palomo M.D. 11/02 Medications Administered in Office Medication Date Status Form Strength Qnty SIG Indications Ordering Provider Domingo Administered Injection Mariana 40MG Manolo Javier M.D. Immunizations CPT Code Status Date Vaccine Lot # [id number] Given 06/11/2017 Influenza Virus Vaccine, Quadrivalent, Split, [id number] Preservative Free [id number] Given 04/20/2017 Pneumococcal Conjugate Vaccine 13 Valent For [id number] Intramuscular Use Vital Signs Date Vital Result Comment 11/03/2017 Height 63 inches 5'3" Weight 180.50 [...] Alt (SGPT) 18 U/L 6-29 Reference Id [id number] Footnote See Comment 11 CBC Auto Diff [...] Color Colorless Urine Appearance Clear Urine Specific Amberg 1.008 Low 1.010-1.030 Urine pH 7.0 5-9 [...] Alt (SGPT) 15 U/L 6-29 Reference Id [id number] Footnote See Comment 33 Laboratory test finding 09/19/2016 Hepatitis C Rna Quant 514689 IU/mL Undetected 34 Hepatitis B Chinyere AB [...] in selective patients <6.0%. Please refer to [place] Diabetes Association diabetic care guidelines for further information. 2 Result in log IU/mL is Undetected. ADDITIONAL INFORMATION The quantification range of this assay is 15 to 100,000,000 IU/mL (1.18 log to 8.00 log IU/mL). Testing was performed using the irasema HCV test ([employer] with the irasema LifeNexus0 System. Test Performed by: [facility] [address] [place] [address] 3 Result in log IU/mL is Undetected. ADDITIONAL INFORMATION The quantification range of this assay is 15 to 100,000,000 IU/mL (1.18 log to 8.00 log IU/mL). Testing was performed using the irasema HCV test ([employer] with the irasema LifeNexus0 System. Test Performed by: [facility] [address] [place] [address] 4 Desirable <150 Borderline high 150-199 High [...] the preanalytical and analytical conditions recommended by [employer]. The tests have to be deferred for: [...] The performance characteristics have been determined by [facility]. It has not been cleared or approved by the U.S. Food and Drug Administration. Performance characteristics refer to the analytical performance of the test. [employer], [employer], the associated logo, [employer] Le[employer] and all associated [employer] levy are the registered trademarks of [employer]. All third republican levy - (R) and (TM) - are the property of their respective owners. (C) 0014-4272 [employer]. All rights reserved. Test Performed by: [employer] [address] [place] [address] 12 Because ethnic data is not always [...] and in selective patients <6.0%.Please refer to [place] Diabetes Association Diabetic care guidelines for further [...] (or dialysis) 16 Result TnIDx:0.04 Called to [id number] at: 09:01:43 by:[id number] Read back by: [id number] 99th percentile=0.04 ng/mL Troponin results at [facility] are not interchangeable. 17 SEE RESULT BELOW Name: KRISTAL MOREIRA : [address]: Sherry Daniel DO Acct: [id number] Unit: [id number] AGE: 66 Location: [place] [address] Re12/17/16 Dis: 12/18/16 SEX: F Status: DIS Esthela SPEC: [id number] VINNIE: 12/17/[address]: Faye ANNA REQ: [id number] RECD: 12/17/16 STATUS: FILIBERTO MOMIN DR: Tyron Jones MD _ SOURCE: URINE SPDESC: ORDERED: Urine Culture Procedure Result Reported Site Urine Culture Final 12/18/16- 1446 ML Organism 1 STREP GROUP B [place] Count 10-25,000 (Moderate) CFU/ML Susceptibility testing of penicillins and other B-lactams approved by FDA for treatment of Streptococcus pyogenes (Group A Strep) and Streptococcus agalactiae (Group B Strep) is not necessary for clinical purposes and need not be done routinely, since as with vancomycin, resistant strains have not been recognized. (CLSI D449-F42;p.66) Positive isolates will be saved for one week. Please call the Microbiology Laboratory if further susceptibility testing is needed. * ML - MAIN LAB ([facility]) . END OF REPORT * ML=Testing performed at Main Lab DEPARTMENT OF PATHOLOGY, [address] [place] [address] Delmar Cannon M.D. Director [facility] # [id number] 18 99th percentile=0.04 ng/mL Troponin results at [facility] are not interchangeable. 19 Because ethnic data [...] 5 Kidney failure <15 (or dialysis) 20 [facility] Severe Sepsis and Septic Shock Management Bundle Measure requires all lactic acids initially measuring >2.0 mmol/L be repeated. 21 Normal Range 180 to 914 Indeterminate Range 145 to 180 Deficient Range <145 22 Therapeutic target for the treatment of diabetes Mellitus patients is <7% HBA1C, and in selective patients <6.0%.Please refer to [place] Diabetes Association Diabetic care guidelines for further [...] <15 (or dialysis) 24 Test Performed by: [address] [address] 25 Mule Tender: [id number] FABIOLA GREGORIO 26 Mutations Detected: Q54Q/H,A92T/A This [...] http://hcvguidelines.org. For additional information, please refer to http://education.Funtactix/faq/YDR321 This test was developed and its analytical Performance characteristics have been determined by [employer]. It has not been cleared or approved by the FDA. This assay has been validated pursuant to the CLIA regulations and is used for clinical purposes. Test Performed by: [employer] [address] [place] [address] 27 Because ethnic data is not always [...] and in selective patients <6.0%.Please refer to [place] Diabetes Association Diabetic care guidelines for further information. 29 ADDITIONAL INFORMATION This test was performed using the Lindsey RealTime HCV Genotype II assay ([employer] [place], [place]). Test Performed by: [place] [address] Lead Pastor: Manas Ribeiro II, M.D., Ph.D. 30 minimal [...] the preanalytical and analytical conditions recommended by [employer]. The tests have to be deferred for: [...] The performance characteristics have been determined by [facility]. It has not been cleared or approved by the U.S. Food and Drug Administration. Performance characteristics refer to the analytical performance of the test. [employer], the associated logo, [employer] and all associated [employer] levy are the registered trademarks of [employer]. All third republican levy - (R) and (TM) - are the property of their respective owners. (C) 3558-6688 [employer]. All rights reserved. Test Performed by: [employer] [address] [place] [address] 34 Result in log IU/mL is 5.91. ADDITIONAL INFORMATION The quantification range of this assay is 15 to 100,000,000 IU/mL (1.18 log to 8.00 log IU/mL). Testing was performed by the IRASEMA AmpliPrep/IRASEMA TaqMan HCV Test, version 2.0 ([employer] Test Performed by: [place] [address] Lead Pastor: Manas Ribeiro II, M.D., Ph.D. 35 This assay does not differentiate between reactivity due to a vaccine-induced immune response or an immune response induced by infection with HBV. 36 Test Performed by: [place] [address] Lead Pastor: Manas Ribeiro II, M.D., Ph.D. 37 Desirable <150 Borderline high 150-199 High 200-499 Very High >500 38 Desirable <200 Borderline high 200-239 High >239 39 Low <40 Desirable: 40-60 High: >60 40 Desirable: <100 mg/dL Near Optimal: 100-129 mg/dL Borderline High: 130-159 mg/dL High: 160-189 mg/dL Very High: >189 mg/dL Procedures Date CPT Code Description Status 11/03/2017 91302 EKG Tracing & Interpretation Completed 10/13/2017 Mammogram Completed 01/14/2017 24940 ECHO Transthoracic, Real-Time 2D With Doppler And Color Completed Flow 01/07/2017 78530 Holter Monitor Review (24 hr)dr review & interp Completed only 01/06/2017 85363 ECG Monitor/Recording W/Visual Superimposition Scanning Completed 01/02/2017 96130 EKG Tracing & Interpretation Completed 12/18/2016 72719 Treadmill Interp/Report Only Completed 12/18/2016 47614 Stress Test Supervsn W/Out I/R Completed 12/17/2016 62041 EKG, Interpretation Only Completed 12/16/2016 49153 EKG Tracing & Interpretation Completed 11/13/2016 66676 Inject Tendon Sheath Or Ligament Aponeurosis Eg Plantar Completed Fascia 10/16/2016 Diabetic Retinal Eye Exam Completed 10/03/2016 Mammogram Completed 03/12/2016 Colonoscopy Completed 05/08/2015 Mammogram Completed 09/30/2013 Mammogram Completed Encounters Type Date Location Provider CPT E/M Dx Office Visit 10/12/2017 [facility] Jhonatan Carey, [address] B18.2 1:20p Infectious Diseases M.D. K74.0 E11.69 E11.9 Office Visit 06/22/2017 2:10p [facility] Tyron Garcia, [address] D50.0 - [place] Nasir Mcmahon,FACP E11.42 Office Visit 06/11/2017 2:00p [facility] Jhonatan Carey, [address] N18.3 Infectious Diseases M.DQuita Z23 K74.0 B18.2 Office Visit 04/20/2017 2:00p [facility] Tyron Garcia, [address] N18.3 - [place] Nasir Mcmahon,FACP D50.0 E11.42 Z23 Office Visit 03/19/2017 1:20p [facility] Jhonatan Carey, 37852 B18.2 Infectious Diseases M.D. Office Visit 02/16/2017 4:00p [facility] Tyron Garcia, [address] E11.42 - [place] Nasir Mcmahon,FACP Z11.4 N18.3 D50.0 Office Visit 01/16/2017 4:40p [facility] Josianetaybryan S. Vinicio, [address]052 I49.3 M.DQuita I10 E11.42 N18.3 D63.1 Z01.810 I49.1 M17.11 I34.0 Office Visit 01/05/2017 2:00p [facility] Tyron Garcia, [address]27 N18.3 - [place] Nasir Mcmahon,FACP E11.42 D63.1 Office Visit 01/02/2017 2:40p [facility] Qutaybeh S. Maghaydah, [address] I10 M.D. E11.42 R94.31 I49.3 Z01.810 M17.11 Office Visit 12/22/2016 1:00p [facility] - Ezekiel Sparks, ABRASIVES SALES REPRESENTATIVE [address] K62.5 I10 E11.42 Office Visit 12/17/2016 2:33p [facility], Sherry Daniel, [address] R00.2 Hospitalists MYahir R74.8 I16.1 E11.42 Office Visit 12/16/2016 3:00p [facility] - Ezekiel Sparks, ABRASIVES SALES REPRESENTATIVE [address] M25.561 M17.11 M25.461 E11.40 I10 D50.8 E78.1 Z85.3 Z72.0 G47.00 D63.1 B18.2 Office Visit 11/17/2016 1:20p [facility] Jhonatan Luevano [address]2758 B18.2 Infectious Diseases Salome Carey Office Visit 11/14/2016 3:30p [facility] Lisa Jarvis M.D. 40717 M25.561 Of Mauro.M.Toshia M17.11 M25.461 Office Visit 11/13/2016 1:30p [facility] Mariana Javier, 45115 M65.332 Of Ezio Mcmahon Office Visit 10/30/2016 2:40p [facility] Ezekiel Sparks, AMRK [address]324 Z01.[address] - [address] H26.9 E11.40 I10 B18.2 D50.8 E78.1 Z85.3 Z72.0 M65.332 Office Visit 10/17/2016 8:50a [facility] Miriam Carey, 61799 B18.2 Infectious Diseases Salome Office Visit 10/08/2016 1:00p [facility] Ezekiel Sparks, ABRASIVES SALES REPRESENTATIVE [address] E11.40 - [address] I10 Z86.010 B18.2 M25.562 Office Visit 09/19/2016 8:20a [facility] - Ezekiel Sparks, ABRASIVES SALES REPRESENTATIVE [address] I10 D50.8 B18.2 G47.00 E78.1 Z72.0 Z86.010 Z85.3 Plan of Care Future Appointment(s):11/19/2017 3:30 pm - Ivan[facility] N.P. at [facility]11/10/2017 2:00 pm - Nurse Visit cc at [facility]2017 - Sreedhar Mooney M.D.I10 Essential (primary) hypertensionNew Medication:Hydralazine HCL 25 mgFollow up:one week BP check nurse 2 weeks ov Ivania one yr ov with meI49.3 Ventricular premature depolarization
[2017-11-24] MEDS: Esmolol 10 MG/ML IVPREMIX* 2,500 MG/250 ML BAG IVPB SCH ×2 (18:05→19:00)
[2017-11-24 18:12] LABS: ABS Basophils 0.1 10^3/ul (0-0.2); ABS Eosinophils 0.1 10^3/ul (0-0.6); ABS Lymphocytes 1.8 10^3/ul (1.0-4.8); ABS Monocytes 0.9 10^3/ul (0-0.8); ABS Neutrophils 7.8 10^3/ul (1.5-7.7); ABS Nucleated RBC 0 10^3/ul; Eosinophil % 0.7 % (0-6); Hematocrit 27 % (35-47); Hemoglobin 9.2 g/dl (12.0-16.0); Lymphocyte % 17.3 % (25-47); Mean Corpuscular HGB Conc 34 g/dl (31-36); Mean Corpuscular Hemoglobin 27 pg (27-31); Mean Corpuscular Volume 80 fL (80-97); Mean Platelet Volume 7.8 um3 (7.4-10.4); Nucleated Red Blood Cells % 0; Platelet Count 378 10^3/ul (150-450); Red Blood Count 3.39 10^6/ul (4.0-5.4); Red Cell Distribution Width 16 % (10.5-15); White Blood Count 10.7 10^3/ul (3.5-10.8)
[2017-11-24] MEDS ORDERED: LORazepam TAB(*) 0.5 MG PO PRN (18:33)
[2017-11-24] MEDS ORDERED: Dextrose 50% Syringe 50 ML* 25 GM/50 ML SYRINGE IV PUSH PRN (18:43)
--- NOTE | 2017-11-24 18:59 | ADMNOTE ---
Subjective Date of Service: 11/24/17 Interval History: ADMISSION HISTORY AND PHYSICAL EXAM: Allergies Allergy/AdvReac Type Severity Reaction Status Date / Time diltiazem Allergy Palpitation Verified 11/24/17 18:42 s enalapril Allergy Swelling Verified 11/24/17 18:42 Of Face,Lips,& Throat verapamil Allergy Palpitation Verified 11/24/17 18:42 s Home Medications Medication Instructions Recorded Confirmed Type Ascorbic Acid TAB* [Vitamin C 500 mg PO DAILY 11/24/17 11/24/17 History TAB*] Calcium Carbonate/Vitamin D3 1 tab PO DAILY 11/24/17 11/24/17 History [Calcium 600 + Vit D Tablet] Carvedilol TAB* [Coreg TAB*] 25 mg PO BID 11/24/17 11/24/17 History Cholecalciferol (Vitamin D3) 50,000 units PO WEEKLY 11/24/17 11/24/17 History [Vitamin D3] Cyanocobalamin (Vitamin B-12) 2,500 mcg PO DAILY 11/24/17 11/24/17 History [Vitamin B12] Darbepoetin Wilmer* [Aranesp*] 200 mcg SUBCUT MONTHLY 11/24/17 11/24/17 History Dextrose [Glucose] 8 gm PO ONCE PRN 11/24/17 11/24/17 History Fluticasone NASAL SPRAY 50MCG* 2 spray BOTH NARES DAILY PRN 11/24/17 11/24/17 History [Flonase NASAL SPRAY 50MCG*] Insulin Aspart [Novolog Flexpen] 5 - 7 unit SUBCUT TID AC 11/24/17 11/24/17 History Insulin GLARGINE(*) [Lantus(*)] 20 units SUBCUT BID 11/24/17 11/24/17 History LORazepam TAB(*) [Ativan 0.5 MG 0.5 mg PO BEDTIME PRN MDD 0.5 mg 11/24/17 History TAB (*)] Magnesium Oxide [Magnesium] 250 mg PO DAILY 11/24/17 11/24/17 History Metformin ER (NF) 1,000 mg PO QAM 11/24/17 11/24/17 History Ranitidine TAB (NF) [Zantac TAB 150 mg PO BID 11/24/17 11/24/17 History (NF)] Vitamin E CAP* 400 unit PO DAILY 11/24/17 11/24/17 History Zinc 50 mg PO DAILY 11/24/17 11/24/17 History amLODIPine TAB* [Norvasc 5 mg TAB*] 10 mg PO DAILY 11/24/17 11/24/17 History cloNIDine TAB* [Catapres 0.1 MG 0.2 mg PO TID 11/24/17 11/24/17 History TAB*] HPI: The patient went to her scheduled appt with Dr. Mooney today. She had a headache and some nausea. She states she was changed from atenolol to carvediolol about 2 weeks ago. Family History: Findings - Mother age 3 alcoholism, DM Social History: Findings - Quit smoking 1 year ago. Former alcoholic. , 3 children, 2 are living. Daughter Kristal Gaitan is her SDM. Past Medical History: Findings - CKD stage 3, diabetes w/ neuropathy, hep C, R breast cancer, ACD Review of Systems - Measurements Intake and Output: Intake and Output Last 24 Hours 11/22/17 11/23/17 11/24/17 11/25/17 06:59 06:59 06:59 06:59 Weight 189 lb - Review of Systems Constitutional Symptoms: Negative: Weight Gain, Weight Loss, Weakness, Fatigue, Fever, Night Sweats, Unexplained Falls, Other Dermatology: Positive: Normal HEENT: Positive: Tinnitus Eyes: Positive: Normal Thyroid: Positive: Normal Pulmonary: Positive: Normal Cardiology: Positive: Chest Pain Gastroenterology: Positive: Nausea Genital - Urinary: Positive: Normal Genitourinay - Female: Positive: Menopause Musculoskeletal: Negative: Joint Pain, Joint Stiffness, Arthritis, Osteoporosis, Low Back Pain , Sciatica, Joint Deformities, Kyphoscoliosis, Other Endocrinology: Positive: Obesity, Diabetes Mellitus Hematologic/Lymphatic: Positive: Anemia Neurology: Positive: Headache Psychiatry: Positive: Normal Allergic/Immunologic: Negative: Hx Anaphylaxis, Hx Angioedema, Hx Environmental, Hx Seasonal, Athsma, Hx HIV, Immunocompromise, Swollen Glands LymphNodes, Other Objective Active Medications: Amlodipine Besylate (Norvasc Tab*) 10 mg PO DAILY NEVA Atenolol (Tenormin Tab*) 100 mg PO BID NEVA Clonidine HCl (Catapres Tab*) 0.2 mg PO TID NEVA Dextrose (D50w Syringe 50 Ml*) 12.5 gm IV PUSH .FOR FS < 60 - SS PRN PRN Reason: FS < 60 Heparin Sodium (Porcine) (Heparin Vial(*)) 5,000 units SUBCUT Q8HR NEVA Esmolol HCl (Brevibloc 10 Mg/Ml Ivpremix*) 2,500 mg in 250 mls @ 25.719 mls/hr IVPB .PER PARAMETERS NEVA; 50 MCG/KG/MIN PRN Reason: Protocol Last Admin: 11/24/17 18:05 Dose: 25.719 mls/hr Nitroglycerin/Dextrose (Nitroglycerin Drip*) 25,000 mcg in 250 mls @ 6 mls/hr IV PER RATE NEVA PRN Reason: 10 MCG/MIN Insulin Glargine (Lantus(*)) 20 units SUBCUT BID [facility] Insulin Human Lispro (Humalog*) 0 units SUBCUT ACHS NEVA PRN Reason: Protocol Lorazepam (Ativan Tab(*)) 0.5 mg PO BEDTIME PRN PRN Reason: AGITATION/ANXIETY Ranitidine HCl (Zantac Tab (Nf)) 150 mg PO BID [facility] PRN Reason: Protocol Terazosin HCl (Hytrin Cap*) 5 mg PO BID [facility] Vital Signs - 8 hr 11/24/17 11/24/17 11/24/17 17:15 17:30 17:40 Temperature 97.8 F Pulse Rate 99 102 Respiratory 22 Rate Blood Pressure 228/85 203/89 223/77 (mmHg) O2 Sat by Pulse 99 100 100 Oximetry 11/24/17 11/24/17 11/24/17 17:45 17:50 17:55 Temperature Pulse Rate 99 94 93 Respiratory Rate Blood Pressure 219/80 207/82 199/78 (mmHg) O2 Sat by Pulse 99 99 99 Oximetry 11/24/17 11/24/17 11/24/17 18:05 18:10 18:15 Temperature Pulse Rate 98 105 86 Respiratory Rate Blood Pressure 220/82 209/83 192/79 (mmHg) O2 Sat by Pulse 100 100 99 Oximetry 11/24/17 11/24/17 18:20 18:25 Temperature Pulse Rate 84 89 Respiratory Rate Blood Pressure 204/92 208/72 (mmHg) O2 Sat by Pulse 98 98 Oximetry Oxygen Devices in Use Now: None Appearance: Alert, supine on ED stretcher. In fair spirits. Looks comfortable. Ears/Nose/Mouth/Throat: Clear Oropharnyx, Mucous Membranes Moist Neck: NL Appearance and Movements; NL JVP, No Thyroid Enlargement, Masses Respiratory: Symmetrical Chest Expansion and Respiratory Effort, Clear to Auscultation, Clear to Percussion Cardiovascular: NL Sounds; No Murmurs; No JVD, RRR, No Edema, - Abdominal: NL Sounds; No Tenderness; No Distention, No Hepatosplenomegaly, - Extremities: No Clubbing, Cyanosis, - - Tr edema BL Skin: No Rash or Ulcers, - - seborrheic keratosis R back 2 cm diameter, 2 smaller ones R abd wall. Neurological: Alert and Oriented x 3, NL Sensation Result Diagrams: 11/24/17 17:40 11/24/17 17:40 Assess/Plan/Problems-Billing Assessment: - Patient Problems (1) Hypertensive emergency Current Visit: No Status: Acute Code(s): I16.1 - HYPERTENSIVE EMERGENCY SNOMED Code(s): 449800236267954 Comment: Admit to ICU on esmolol and NTG drips. Change carvedilol to atenolol 100 mg bid, add terazosin 5 mg bid. (2) Type II diabetes mellitus Current Visit: No Status: Acute Comment: Continue home Lantus dose. Lispro by SS. (3) CKD (chronic kidney disease) stage 4, GFR 15-29 ml/min Current Visit: Yes Status: Acute Code(s): N18.4 - CHRONIC KIDNEY DISEASE, STAGE 4 (SEVERE) SNOMED Code(s): 191189532 Comment: [place] lab results not available. Repeat BMP 11/25. (4) Hepatitis C antibody positive in blood Current Visit: Yes Status: Acute Code(s): R76.8 - OTHER SPECIFIED ABNORMAL IMMUNOLOGICAL FINDINGS IN SERUM SNOMED Code(s): 254795518 Comment: Hep C RNA not detected. (5) Full code status Current Visit: No Status: Acute Code(s): Z78.9 - OTHER SPECIFIED HEALTH STATUS SNOMED Code(s): 187360994
[2017-11-24] MEDS ORDERED: nitroGLYCERIN DRIP* 25,000 MCG/250 ML BTL IV SCH (19:00)
[2017-11-24] MEDS ORDERED: Acetaminophen TAB* 325 MG PO PRN (19:41)
[2017-11-24] MEDS ORDERED: Acetaminophen TAB* 325 MG ONE (19:45)
[2017-11-24] MEDS ORDERED: Morphine INJ* 2 MG/ML 1 ML CARPUJECT IV PRN ×2 (20:08→22:38)
[2017-11-24] MEDS ORDERED: Morphine INJ* 2 MG/ML 1 ML CARPUJECT ONE (20:10)
[2017-11-24] MEDS ORDERED: Insulin GLARGINE(*) 1 UNITS UNIT SUBCUT SCH (21:00)
[2017-11-24 21:27] LABS: Urine Appearance Clear; Urine Blood 1+ (Negative); Urine Color Colorless; Urine Ketones Negative (Negative); Urine Protein 2+(100 mg/dL) (Negative); Urine Specific Gravity 1.005 (1.010-1.030); Urine Urobilinogen Negative (Negative)
[2017-11-24] MEDS: Terazosin CAP* 5 MG PO SCH (21:47)
[2017-11-24] MEDS: cloNIDine TAB* 0.1 MG PO SCH (21:48)
[2017-11-24] MEDS: Famotidine TAB* 20 MG PO SCH (21:48)
[2017-11-24] MEDS: Atenolol TAB* 50 MG PO SCH (21:51)
[2017-11-24] MEDS: Insulin LISPRO* 1 UNITS UNIT SUBCUT SCH (21:51)
[2017-11-24] MEDS: Heparin VIAL(*) 5000 UNITS/ML VIAL (FIVE THOUSAND) SUBCUT SCH (21:52)
[2017-11-25] MEDS: Heparin VIAL(*) 5000 UNITS/ML VIAL (FIVE THOUSAND) SUBCUT SCH ×2 (06:12→15:20)
--- NOTE | 2017-11-25 07:28 | RAD ---
INDICATION: Left flank pain, hematuria, known medical renal disease. COMPARISON: There are no prior studies available for comparison. TECHNIQUE: Multiple real-time images of the kidneys and urinary bladder were obtained. FINDINGS: The kidneys are normal in size and shape and increased in echogenicity consistent with medical renal disease. The right kidney measured 11.2 x 4.4 x 6.5 cm and the left kidney measured 9.0 x 5.6 x 4.7 cm. There is a small simple cyst in the upper pole of the right kidney measuring 0.8 x 0.6 x 0.8 cm. There is a simple cyst in the upper pole of the left kidney measuring 1.3 x 1.5 x 1.5 cm. In addition there is a hypoechoic lesion in the upper pole of the left kidney measuring 1.9 x 1.9 x 1.8 cm most consistent with a complex cyst or solid mass. There is suggestion of mild fullness in the right collecting system, no hydronephrosis is seen. While scanning the kidneys note is made of multiple gallstones. No gallbladder wall thickening is seen. The bladder is normal in contour. No intraluminal abnormalities are seen. No bladder wall thickening is noted. There are bilateral ureteral jets present within the urinary bladder. The prevoid volume was 156 ml and the patient was unable to void at the time of the study. IMPRESSION: 1. ECHOGENIC KIDNEYS CONSISTENT WITH MEDICAL RENAL DISEASE WITHOUT GROSS EVIDENCE FOR HYDRONEPHROSIS. 2. BILATERAL SIMPLE RENAL CYSTS AND HYPOECHOIC LESION IN THE UPPER POLE OF THE LEFT KIDNEY CONSISTENT WITH A COMPLEX CYST OR SOLID NODULE. CONSIDER CT IMAGING WITHOUT AND WITH CONTRAST IF THE PATIENT'S RENAL FUNCTION IS ADEQUATE FOR THAT STUDY. 3. CHOLELITHIASIS.
[2017-11-25] MEDS: Terazosin CAP* 5 MG PO SCH (08:27)
[2017-11-25] MEDS: cloNIDine TAB* 0.1 MG PO SCH ×2 (08:28→15:19)
[2017-11-25] MEDS: Famotidine TAB* 20 MG PO SCH (08:29)
[2017-11-25] MEDS: Atenolol TAB* 50 MG PO SCH (08:30)
[2017-11-25 08:41] LABS: EGFR Non-African American 17.8 (>60)
[2017-11-25] MEDS ORDERED: Insulin GLARGINE(*) 1 UNITS UNIT SUBCUT SCH (09:00)
[2017-11-25] MEDS ORDERED: amLODIPine TAB* 5 MG PO SCH (09:00)
[2017-11-25] MEDS: Insulin LISPRO* 1 UNITS UNIT SUBCUT SCH ×2 (09:18→12:06)
--- NOTE | 2017-11-25 14:09 | PN ---
Progress Note - Progress Note Date of Service: 11/25/17 Note: Time spent on doischarge 50 minutes.
[2017-11-25 14:45] VITALS: BP 165/69
--- NOTE | 2017-11-26 03:54 | DS ---
CC: Dr. Tyron Garcia; Dr. Becker; Dr. Mooney * DISCHARGE SUMMARY: DATE OF ADMISSION: 11/24/17 DATE OF DISCHARGE: 11/25/17 HOSPITAL COURSE: This 67-year-old woman came to her scheduled appointment at Dr. Mooney's office. She had a headache and some nausea. She was found to have very high blood pressure. She had recently been switched from atenolol 50 mg b.i.d. to carvedilol 25 mg b.i.d. The patient was admitted to the intensive care unit. She was started on esmolol infusion and the nitroglycerin infusion. She was given a 100 mg of atenolol b.i.d. starting the evening of admission and terazosin 5 mg b.i.d. also starting the evening of admission. She improved rapidly, both IV infusions were able to be stopped. On the day of discharge, her blood pressure was checked several times, the diastolics were all below 90 as of 10 a.m., systolics were all below 180 to less. Blood pressure before discharge was 145/ 80 and the patient felt much better. Her creatinine on admission was 2.93 and it was 2.68 on the morning of discharge. Her potassium was 4.4, sodium 133. FINAL DIAGNOSES: 1. Hypertensive emergency. 2. Diabetes. 3. Chronic kidney disease. 4. Hepatitis C, status post treatment. DISCHARGE MEDICATIONS: 1. Acetaminophen 650 mg every 4 hours p.r.n. 2. Atenolol 100 mg b.i.d. 3. Terazosin 10 mg bedtime 4. Clonidine 0.2 mg t.i.d. 5. Lorazepam 0.5 mg h.s. p.r.n. 6. Ranitidine 150 mg b.i.d. 7. Glargine insulin 12 units daily. 8. Aspart insulin as directed. 9. Aranesp 200 mcg subcu monthly. 10. Vitamin E 400 units daily. 11. Zinc 50 mg daily. 12. Magnesium oxide 250 mg daily. 13. Fluticasone nasal spray 2 sprays both nares daily p.r.n. 14. Vitamin B12 2500 mcg daily. 15. Vitamin D3 96939 units orally weekly. 16. Amlodipine 10 mg daily. The patient's insurance would not cover terazosin 5 mg bid but would cover 10 mg once daily. [id number]/[facility] #: [id number] MTDD
== END 2017-11-25 16:20 | DRG 305 ==
LOC: ED 17:14 → ICU 18:29 → MED 11-25 12:22
PROVIDERS: ADMIT Internal Medicine; ATTEND Internal Medicine
DX: I16.1 Hypertensive emergency (principal); I12.9 Hypertensive chronic kidney disease with stage 1 through stage 4 chronic kidney disease, or unspecified chronic kidney disease; E11.22 Type 2 diabetes mellitus with diabetic chronic kidney disease; E11.40 Type 2 diabetes mellitus with diabetic neuropathy, unspecified; E66.9 Obesity, unspecified; L82.1 Other seborrheic keratosis; N18.3 Chronic kidney disease, stage 3 (moderate); Z88.8 Allergy status to other drugs, medicaments and biological substances; Z81.1 Family history of alcohol abuse and dependence; Z83.3 Family history of diabetes mellitus; Z87.891 Personal history of nicotine dependence; Z86.19 Personal history of other infectious and parasitic diseases; Z85.3 Personal history of malignant neoplasm of breast
CPT/HCPCS: 36415; 76770; 80048; 80053; 81003; 81015; 83605; 84484; 85025; 87086; 87641; 93005; 99285; A9270-GY; J1644; J2270

== ENCOUNTER 2017-11-26 11:50 | Inpatient (IN) | payer MEDICARE ==
[2017-11-26] MEDS ORDERED: Nitroglycerin TAB 0.4 MG* 0.4 MG TAB SL ONE (12:05)
[2017-11-26] MEDS ORDERED: Aspirin 81 mg CHEW TAB* 81 MG TAB.CHEW PO ONE (12:05)
[2017-11-26 12:37] LABS: ABS Basophils 0 10^3/ul (0-0.2); ABS Eosinophils 0 10^3/ul (0-0.6); ABS Lymphocytes 0.9 10^3/ul (1.0-4.8); ABS Monocytes 0.7 10^3/ul (0-0.8); ABS Nucleated RBC 0 10^3/ul; Eosinophil % 0.6 % (0-6); Hematocrit 26 % (35-47); Hemoglobin 8.6 g/dl (12.0-16.0); Lymphocyte % 12.2 % (25-47); Mean Corpuscular HGB Conc 33 g/dl (31-36); Mean Corpuscular Hemoglobin 27 pg (27-31); Mean Corpuscular Volume 82 fL (80-97); Mean Platelet Volume 7.3 um3 (7.4-10.4); Nucleated Red Blood Cells % 0; Platelet Count 300 10^3/ul (150-450); Red Blood Count 3.17 10^6/ul (4.0-5.4); Red Cell Distribution Width 17 % (10.5-15); White Blood Count 7.7 10^3/ul (3.5-10.8)
--- NOTE | 2017-11-26 12:38 | RAD ---
HISTORY: Chest pain COMPARISONS: December 17, 2016 VIEWS: 1: frontal portable view of the chest at 12:26 PM FINDINGS: LINES AND TUBES: None. CARDIOMEDIASTINAL SILHOUETTE: The cardiac silhouette is enlarged. The cardiomediastinal silhouette is otherwise normal for portable technique. PLEURA: The costophrenic angles are sharp. No pleural abnormalities are noted. LUNG PARENCHYMA: The lungs are clear. ABDOMEN: The upper abdomen is clear. There is no subphrenic gas. BONES AND SOFT TISSUES: No bone or soft tissue abnormalities are noted. Surgical clips are noted in the right breast and right axilla. IMPRESSION: CARDIOMEGALY. NO ACTIVE CARDIOPULMONARY DISEASE.
[2017-11-26 13:20] LABS: EGFR Non-African American 14.6 (>60)
[2017-11-26] MEDS ORDERED: cloNIDine TAB* 0.1 MG PO SCH (15:00)
[2017-11-26] MEDS ORDERED: Fluticasone NASAL SPRAY 50MCG* 16 gm SPRAY BTL BOTH NARES PRN (15:19)
[2017-11-26] MEDS ORDERED: Acetaminophen TAB* 325 MG PO PRN (15:22)
[2017-11-26] MEDS ORDERED: hydrALAZINE IV* 20 MG/ML VIAL IV SLOW PU PRN (15:24)
[2017-11-26] MEDS ORDERED: Dextrose 50% Syringe 50 ML* 25 GM/50 ML SYRINGE IV PUSH PRN (15:30)
[2017-11-26] MEDS: Insulin LISPRO* 1 UNITS UNIT SUBCUT SCH (16:43)
[2017-11-26] MEDS: cloNIDine TAB* 0.1 MG PO SCH ×2 (16:55→21:01)
[2017-11-26] MEDS ORDERED: Atenolol TAB* 50 MG PO ONE (17:08)
[2017-11-26] MEDS ORDERED: Polyethylene Glycol 3350* 17 GM PACKET PO PRN (20:15)
--- NOTE | 2017-11-26 20:59 | HP ---
CC: Dr. Garcia; Dr. Emery; Dr. Wick; Dr. Becker * HISTORY AND PHYSICAL: DATE OF ADMISSION: 11/26/17 PRIMARY CARE PROVIDER: Dr. Garcia. CHIEF COMPLAINT: Dizzy, lightheaded, and left shoulder pain. HISTORY OF PRESENT ILLNESS: Kristal Moreira is a 67-year-old female with history of uncontrolled hypertension; chronic kidney disease, stage 3 to 4, who was just admitted to the hospital overnight and discharged yesterday for hypertensive urgency. She was just started on terazosin and atenolol 100 mg b.i.d. The patient stated that usually she used to take atenolol 50 mg twice a day. She also stated that the terazosin that was prescribed was not covered by her insurance. When she presented on 11/24/17 for hypertensive urgency, it was noted that the patient's atenolol was switched to Coreg and she did not tolerate it well. Today, she stated that she woke up in the morning, she felt lightheaded. She took her blood pressure and it was over 200. She took her medications but initially stated that she took all her medications as prescribed, then she admitted that she took half of the dose of atenolol which is 50 mg. She stated that she continued to be lightheaded and having left shoulder "twitches." She presented to the ED for evaluation with those complaints. Here, her blood pressure was noted to be 170/69 on presentation. Her initial workup was grossly unremarkable from slight elevation of her baseline chronic kidney disease. She is going to be placed on observation to rule out angina in regards to her left shoulder pain and other symptoms as mentioned above. PAST MEDICAL HISTORY: 1. History of uncontrolled hypertension. 2. History of diabetes, type 2, with diabetic neuropathy. 3. Hypertension. 4. Chronic hepatitis C, under the care of Dr. Wick. 5. History of tinnitus. 6. History of iron deficiency anemia as well as anemia of renal disease. 7. History of right-sided breast carcinoma. 8. History of dyslipidemia. 9. Chronic kidney disease, stage 3. 10. History of tubal ligation. 11. Carpal tunnel release on the right. 12. Left total knee replacement. The patient is awaiting the right knee to be replaced. 13. History of right breast lumpectomy. 14. Bilateral cataract surgery. MEDICATIONS: That the patient is currently taking include: 1. Norvasc 10 mg daily. 2. Magnesium oxide 250 mg daily. 3. Flonase nasal spray 2 sprays both nostrils daily. 4. Vitamin B12 2500 mcg daily. 5. Vitamin D3 50,000 units weekly. 6. Zinc supplement. 7. Vitamin E supplement. 8. Ranitidine 150 mg b.i.d. 9. Insulin aspart t.i.d. with every meal according to the sliding scale. 10. Aranesp 200 mcg subcutaneously monthly. 11. Clonidine 0.2 mg 3 times a day. 12. Lorazepam 0.5 mg on a p.r.n. basis. 13. Atenolol 50 mg b.i.d. 14. Acetaminophen on a p.r.n. basis. ALLERGIES: Include ENALAPRIL caused angioedema, DILTIAZEM and VERAPAMIL cause "heart pounding." FAMILY HISTORY: Positive for mother, who of complications of alcohol at the age of 38. Mom also had a history of diabetes. Father's history is unknown. SOCIAL HISTORY: The patient has history of smoking most of her adult life until a year ago and she quit. 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 She is . She has 3 children; one of them from kidney failure. The patient's daughter, Kristal Gaitan, is her healthcare proxy. REVIEW OF SYSTEMS: Please see history of present illness. All the remaining 12 systems were reviewed with the patient and were otherwise negative. The patient stated that she is using a cane due to right knee osteoarthritis for which she is awaiting replacement. She would not be able to walk on a treadmill. PHYSICAL EXAMINATION GENERAL: The patient is a very pleasant 67-year-old female, who is in no acute distress. Alert, awake, and oriented x3. VITAL SIGNS: Blood pressure of 167/62, heart rate of 75 and regular, respiratory rate 15, oxygen saturation 96% on room air, temperature of 98.0. HEENT: Head: Atraumatic, normocephalic. Eyes: Pupils equal and reactive to light and accommodation. Oropharynx clear. Mucosa moist. NECK: Supple. No JVD. No bruits bilaterally. RESPIRATORY: Clear to auscultation bilaterally. CARDIOVASCULAR: Regular rate and rhythm. No murmur. ABDOMEN: Soft, nontender. Bowel sounds are present in all 4 quadrants. EXTREMITIES: There is no edema. Pulses are +2 bilaterally. No clubbing or cyanosis. NEURO EVALUATION: Speech clear. Cranial nerves II through XII grossly intact. Motor strength is 5/5 bilaterally. PSYCHIATRIC EVALUATION: The patient is oriented x3 with no evidence of anxiety or depression. DIAGNOSTIC STUDIES/LAB DATA: Studies performed done in the ER included: Sodium of 136, potassium 4.6, chloride 106, carbon dioxide 22, BUN 26, creatinine 3.18. Liver function tests unremarkable. Troponin was 0.01. CBC: White blood cell count of 7.7, hemoglobin of 8.6, hematocrit of 26, platelets of 300, MCV was 82. Portable chest x-ray, impression: "Cardiomegaly with no active cardiopulmonary disease." The patient's EKG showed normal sinus rhythm with a heart rate of 71 beats per minute with no significant ST changes. ASSESSMENT AND PLAN: 1. In regards to the patient's nonspecific symptoms of near syncope and dizziness, I suspect this may be due the patient's uncontrolled blood pressure and blood pressure swings. At this point, the patient admitted that she feels that she should be taking 50 mg of atenolol twice a day and not 100 twice a day as she was prescribed. In fact, she is unsure if she had been taking her atenolol. At this time, I will start the patient on atenolol 50 mg twice a day and clonidine 0.2 mg 3 times a day. Her amlodipine is going to be continued as scheduled. 2. In regards to the patient's chest pain as the ED physician suggested, she is going to be placed on overnight observation with telemetry monitoring and followup stress test in the morning. The patient refuses to walk due to her severe right knee osteoarthritis and she is going to be undergoing pharmacologic stress test. 3. For her diabetes, the patient is going to be placed on insulin sliding scale as she uses at home. 4. The patient's chronic kidney disease is slowly progressing. The patient stated that she "needs to see Dr. Becker" in regards to that. I do believe that she should be monitored as outpatient by a middle school volleyball coach and she is aware of that and she was already referred to Dr. Becker previously. 5. For DVT prophylaxis, the patient is going to be placed on heparin subcutaneously. 6. The patient's code status is full and her surrogate is her daughter as mentioned above. TIME SPENT: Approximately 65 minutes was spent on admission of this patient, more than half that time was spent [id number] with the patient during the interview and physical exam. [id number]/[facility] #: [id number] ALLIE
[2017-11-26] MEDS: Atenolol TAB* 50 MG PO SCH (21:00)
[2017-11-26] MEDS: Heparin VIAL(*) 5000 UNITS/ML VIAL (FIVE THOUSAND) SUBCUT SCH (21:01)
[2017-11-26] MEDS: LORazepam TAB(*) 0.5 MG PO PRN (21:09)
[2017-11-27] MEDS: amLODIPine TAB* 5 MG PO SCH (04:02)
[2017-11-27] MEDS: Heparin VIAL(*) 5000 UNITS/ML VIAL (FIVE THOUSAND) SUBCUT SCH ×3 (05:36→20:53)
[2017-11-27] MEDS: Nitroglycerin 2% OINT* 1 GM PAK TOPICAL SCH ×2 (06:04→14:07)
[2017-11-27] MEDS: Atenolol TAB* 50 MG PO SCH (07:02)
[2017-11-27] MEDS: cloNIDine TAB* 0.1 MG PO SCH ×3 (07:02→20:45)
[2017-11-27] MEDS: Vitamin E CAP* 400 UNIT PO SCH (08:12)
[2017-11-27] MEDS: Insulin LISPRO* 1 UNITS UNIT SUBCUT SCH ×3 (08:13→17:53)
[2017-11-27] MEDS ORDERED: Atenolol TAB* 50 MG PO SCH (08:33)
[2017-11-27] MEDS ORDERED: cloNIDine TAB* 0.1 MG PO SCH ×2 (09:45→15:45)
[2017-11-27 10:39] LABS: EGFR Non-African American 14.3 (>60)
[2017-11-27] MEDS ORDERED: Regadenoson* 0.4 MG/5 ML SYRINGE ONE (11:03)
--- NOTE | 2017-11-27 13:24 | RAD ---
Edited for charges. INDICATION: Chest pain. Hypertension. COMPARISON: December 18, 2016 TECHNIQUE: 10.400 mCi of Tc-99m Myoview were administered IV. SPECT images of the heart were obtained. Later on the same day. Under the direction of Dr. Ray, the patient was given an IV injection of a pharmacologic stress agent. Subsequently, the patient was given an IV injection of 25.600 mCi Tc-99m Myoview. SPECT images of the heart were obtained and a gated wall motion study was performed. FINDINGS: Gated wall motion images were obtained at stress and demonstrate hypokinesia at the inferolateral apical segment which is likely artifact due to inferior gut activity. The calculated left ventricular ejection fraction is 73 % at stress. Estimated LEFT ventricular end diastolic volume is 94 mL. TID 0.96. Artifact from breast attenuation and inferior gut activity noted. Based on review of the attenuation corrected and non corrected images the distribution of radiopharmaceutical within the myocardium on the stress and rest images is within normal limits. No fixed or reversible regions of hypoperfusion evident. IMPRESSION: 1. No evidence for stress induced myocardial ischemia or presence of an infarct. 2. Grossly normal left ventricular wall motion and ejection fraction. ASSESSMENT: Low risk based on nuclear portion. Based on imaging criteria from ACC/AHA 2002 Guideline Update for the Management of Patients With Chronic Stable Angina Table 23. Noninvasive Risk Stratification. MTDD
[2017-11-27] MEDS ORDERED: Metoprolol Tartrate TAB* 25 MG PO ONE (14:24)
--- NOTE | 2017-11-27 15:48 | PN ---
Subjective Date of Service: 11/27/17 Interval History: Pt feels well. Denies MAY or CP. Is worried about her dog left at home alone Objective Active Medications: Acetaminophen (Tylenol Tab*) 650 mg PO Q4H PRN PRN Reason: FEVER/PAIN Alprazolam (Xanax Tab*) 0.25 mg PO Q8H PRN PRN Reason: ANXIETY Amlodipine Besylate (Norvasc Tab*) 10 mg PO DAILY@0900 [facility] Last Admin: 11/27/17 04:02 Dose: 10 mg Clonidine HCl (Catapres Tab*) 0.3 mg PO TID [facility] Last Admin: 11/27/17 14:41 Dose: 0.3 mg Dextrose (D50w Syringe 50 Ml*) 12.5 gm IV PUSH .FOR FS < 60 - SS PRN PRN Reason: FS < 60 Fluticasone Propionate (Flonase Nasal [place] 50mcg*) 2 spray BOTH NARES DAILY PRN PRN Reason: CONGESTION Heparin Sodium (Porcine) (Heparin Vial(*)) 5,000 units SUBCUT Q8HR [facility] Last Admin: 11/27/17 14:07 Dose: 5,000 units Insulin Human Lispro (Humalog*) 0 units SUBCUT AC [facility] PRN Reason: Protocol Last Admin: 11/27/17 14:07 Dose: 2 units Isosorbide Mononitrate (Imdur Er Tab*) 30 mg PO DAILY [facility] Lorazepam (Ativan Tab(*)) 0.5 mg PO BEDTIME PRN PRN Reason: AGITATION/ANXIETY Last Admin: 11/26/17 21:09 Dose: 0.5 mg Metoprolol Tartrate (Lopressor Tab*) 50 mg PO Q12HR [facility] Metoprolol Tartrate (Lopressor Iv*) 5 mg IV Q4H PRN PRN Reason: BLOOD PRESSURE Pharmacy Profile Note (Nitro Patch/Oint Remove*) 0 note TOPICAL 1800 [facility] Polyethylene Glycol/Electrolytes (Miralax*) 17 gm PO DAILY PRN PRN Reason: CONSTIPATION Last Admin: 11/26/17 21:01 Dose: 17 gm Vitamin E (Vitamin E Cap*) 400 unit PO DAILY [facility] Last Admin: 11/27/17 08:12 Dose: 400 unit Vital Signs - 8 hr 11/27/17 11/27/17 11/27/17 07:51 15:11 15:39 Temperature 97.8 F 98.7 F Pulse Rate 64 70 Respiratory 16 16 Rate Blood Pressure 146/66 203/71 210/90 (mmHg) O2 Sat by Pulse 100 100 Oximetry Oxygen Devices in Use Now: None Appearance: 67 yo F in nAD, AAOx3 Eyes: No Scleral Icterus, PERRLA Ears/Nose/Mouth/Throat: NL Teeth, Lips, Gums, Mucous Membranes Moist Neck: NL Appearance and Movements; NL JVP, Trachea Midline Respiratory: Symmetrical Chest Expansion and Respiratory Effort, Clear to Auscultation Cardiovascular: NL Sounds; No Murmurs; No JVD, RRR Abdominal: NL Sounds; No Tenderness; No Distention, No Hepatosplenomegaly Lymphatic: No Cervical Adenopathy Extremities: No Edema, No Clubbing, Cyanosis Skin: No Rash or Ulcers, No Nodules or Sclerosis Neurological: Alert and Oriented x 3, NL Muscle Strength and Tone Result Diagrams: 11/26/17 12:19 11/27/17 09:48 Assess/Plan/Problems-Billing Assessment: 67 yoF with h/o DM, HTN, CKD stage 3, HTN urgency presents with left shoulder pain and lightheadedness as well as uncontrolled HTN again - Patient Problems (1) Uncontrolled hypertension Comment: Still uncontrolled .As d/w Dr. Becker Atenolol use is limited in dose due to CKD. will switch to lopressor and increase the dose Clonidine. Also take off nitropaste started last night and start Imdur. On prn basis lopressor IV was ordered (2) Left shoulder pain Comment: resolved, stress test low prob today (3) CKD (chronic kidney disease) stage 4, GFR 15-29 ml/min Comment: due to DM and HTN with worsening, d/w Dr. Becker (4) Type II diabetes mellitus Comment: cont Lispro by SS. (5) Iron deficiency anemia Comment: chronic with mild worsening, suspect due to worsened CKD Stool guaiac ordered (6) DVT prophylaxis Comment: SQ heparin Status and Disposition: OBV will be changed to inpatient for further monitoring and adjustment of meds for uncontrolled HTN
[2017-11-27] MEDS: Isosorbide Mononitrate ER TAB* 30 MG PO SCH (17:00)
[2017-11-27] MEDS: ALPRAZolam TAB* 0.25 MG PO PRN (17:00)
[2017-11-27] MEDS: Nitro Patch/OINT Remove TOPICAL SCH (17:54)
[2017-11-27] MEDS ORDERED: Metoprolol Tartrate TAB* 50 mg PO SCH (21:00)
[2017-11-27] MEDS ORDERED: Omeprazole CAP* 20 MG PO SCH (21:00)
[2017-11-28] MEDS: Metoprolol Tartrate IV* 1 MG/ML 5 ML VIAL IV PRN ×2 (00:22→09:43)
[2017-11-28] MEDS: LORazepam TAB(*) 0.5 MG PO PRN (00:33)
[2017-11-28] MEDS: HYDROcodone/ACETAMIN 5-325 MG* 1 TAB PO PRN (01:55)
[2017-11-28 02:01] LABS: Urine Appearance Cloudy; Urine Blood Negative (Negative); Urine Color Yellow; Urine Ketones Negative (Negative); Urine Protein 3+(>=500 mg/dL) (Negative); Urine Specific Gravity 1.009 (1.010-1.030); Urine Urobilinogen Negative (Negative)
[2017-11-28] MEDS: Labetalol TAB* 100 MG PO SCH ×3 (04:11→20:54)
[2017-11-28 05:39] LABS: ABS Basophils 0.1 10^3/ul (0-0.2); ABS Eosinophils 0 10^3/ul (0-0.6); ABS Lymphocytes 1.5 10^3/ul (1.0-4.8); ABS Monocytes 0.7 10^3/ul (0-0.8); ABS Neutrophils 4.4 10^3/ul (1.5-7.7); ABS Nucleated RBC 0 10^3/ul; Eosinophil % 0.7 % (0-6); Hematocrit 21 % (35-47); Hemoglobin 7.3 g/dl (12.0-16.0); Lymphocyte % 22.7 % (25-47); Mean Corpuscular HGB Conc 34 g/dl (31-36); Mean Corpuscular Hemoglobin 28 pg (27-31); Mean Corpuscular Volume 82 fL (80-97); Mean Platelet Volume 7.5 um3 (7.4-10.4); Nucleated Red Blood Cells % 0; Platelet Count 276 10^3/ul (150-450); Red Blood Count 2.61 10^6/ul (4.0-5.4); Red Cell Distribution Width 17 % (10.5-15); White Blood Count 6.7 10^3/ul (3.5-10.8)
[2017-11-28 05:56] LABS: EGFR Non-African American 15.1 (>60)
[2017-11-28] MEDS ORDERED: Pantoprazole IV* 80 MG in NS 0.9% 100 ML* 100 ML IVPB SCH (09:00)
[2017-11-28] MEDS ORDERED: Pantoprazole IV* 80 MG in NS 0.9% 100 ML* 100 ML IVPB ONE (09:30)
[2017-11-28] MEDS: Insulin LISPRO* 1 UNITS UNIT SUBCUT SCH ×3 (09:38→17:30)
[2017-11-28] MEDS: Vitamin E CAP* 400 UNIT PO SCH (09:40)
[2017-11-28] MEDS: ALPRAZolam TAB* 0.25 MG PO PRN (09:40)
[2017-11-28] MEDS: amLODIPine TAB* 5 MG PO SCH (09:40)
[2017-11-28] MEDS: Isosorbide Mononitrate ER TAB* 30 MG PO SCH (09:40)
[2017-11-28] MEDS: cloNIDine TAB* 0.1 MG PO SCH ×3 (09:40→20:54)
[2017-11-28] MEDS: NS 0.9% 1000 ML* 1,000 ML IV SCH (12:12)
--- NOTE | 2017-11-28 13:06 | PN ---
Subjective Date of Service: 11/28/17 Interval History: Pt feels well. concerned about her HTN. Had a dark , but not melanotic BM this AM Objective Active Medications: Acetaminophen (Tylenol Tab*) 650 mg PO Q4H PRN PRN Reason: FEVER/PAIN Last Admin: 11/28/17 00:27 Dose: 650 mg Hydrocodone Bitart/Acetaminophen ([place] 5-325 Tab*) 1 tab PO Q4H PRN PRN Reason: PAIN Last Admin: 11/28/17 01:55 Dose: 1 tab Alprazolam (Xanax Tab*) 0.25 mg PO Q8H PRN PRN Reason: ANXIETY Last Admin: 11/28/17 09:40 Dose: 0.25 mg Amlodipine Besylate (Norvasc Tab*) 10 mg PO DAILY@0900 [facility] Last Admin: 11/28/17 09:40 Dose: 10 mg Clonidine HCl (Catapres Tab*) 0.3 mg PO TID [facility] Last Admin: 11/28/17 09:40 Dose: 0.3 mg Dextrose (D50w Syringe 50 Ml*) 12.5 gm IV PUSH .FOR FS < 60 - SS PRN PRN Reason: FS < 60 Fluticasone Propionate (Flonase Nasal [place] 50mcg*) 2 spray BOTH NARES DAILY PRN PRN Reason: CONGESTION Sodium Chloride (Ns 0.9% 1000 Ml*) 1,000 mls @ 75 mls/hr IV PER RATE [facility] Last Admin: 11/28/17 12:12 Dose: 75 mls/hr Pantoprazole Sodium 80 mg/ (Sodium Chloride) 100 mls @ 10 mls/hr IVPB ONCE ONE Stop: 11/28/17 19:29 Last Admin: 11/28/17 12:12 Dose: 10 mls/hr Insulin Human Lispro (Humalog*) 0 units SUBCUT AC [facility] PRN Reason: Protocol Last Admin: 11/28/17 09:38 Dose: 4 units Isosorbide Mononitrate (Imdur Er Tab*) 30 mg PO DAILY [facility] Last Admin: 11/28/17 09:40 Dose: 30 mg Labetalol HCl (Trandate Tab*) 100 mg PO BID [facility] Last Admin: 11/28/17 09:40 Dose: 100 mg Lorazepam (Ativan Tab(*)) 0.5 mg PO BEDTIME PRN PRN Reason: AGITATION/ANXIETY Last Admin: 11/28/17 00:33 Dose: 0.5 mg Metoprolol Tartrate (Lopressor Iv*) 5 mg IV Q4H PRN PRN Reason: BLOOD PRESSURE Last Admin: 11/28/17 09:43 Dose: 5 mg Omeprazole (Prilosec Cap*) 20 mg PO BID@0730,1630 [facility] Pharmacy Profile Note (Nitro Patch/Oint Remove*) 0 note TOPICAL 1800 [facility] Last Admin: 11/27/17 17:54 Dose: Not Given Polyethylene Glycol/Electrolytes (Miralax*) 17 gm PO DAILY PRN PRN Reason: CONSTIPATION Last Admin: 11/26/17 21:01 Dose: 17 gm Vitamin E (Vitamin E Cap*) 400 unit PO DAILY [facility] Last Admin: 11/28/17 09:40 Dose: 400 unit Vital Signs - 8 hr 11/28/17 11/28/17 11/28/17 05:14 05:37 08:00 Temperature Pulse Rate 78 Respiratory 20 18 Rate Blood Pressure 165/71 (mmHg) O2 Sat by Pulse Oximetry 11/28/17 11/28/17 11/28/17 09:06 09:40 11:50 Temperature 98.1 F 97.6 F Pulse Rate 85 68 Respiratory 20 20 18 Rate Blood Pressure 206/78 172/69 (mmHg) O2 Sat by Pulse 100 100 Oximetry 11/28/17 12:13 Temperature Pulse Rate Respiratory 18 Rate Blood Pressure (mmHg) O2 Sat by Pulse Oximetry Oxygen Devices in Use Now: None Appearance: 67 yo F in nAD, AAOx3 Eyes: No Scleral Icterus, PERRLA Ears/Nose/Mouth/Throat: NL Teeth, Lips, Gums, Mucous Membranes Moist Neck: NL Appearance and Movements; NL JVP, No Thyroid Enlargement, Masses Respiratory: Symmetrical Chest Expansion and Respiratory Effort, Clear to Auscultation Cardiovascular: NL Sounds; No Murmurs; No JVD, RRR Abdominal: NL Sounds; No Tenderness; No Distention Lymphatic: No Cervical Adenopathy Extremities: No Edema, No Clubbing, Cyanosis Skin: No Rash or Ulcers, No Nodules or Sclerosis Neurological: Alert and Oriented x 3, NL Muscle Strength and Tone Result Diagrams: 11/28/17 05:26 11/28/17 05:26 Microbiology and Other Data: Microbiology 11/27/17 15:12 Stool Occult Blood (STEFANIA) - Final Stool Assess/Plan/Problems-Billing Assessment: 67 yoF with h/o DM, HTN, CKD stage 3, HTN urgency presents with left shoulder pain and lightheadedness as well as uncontrolled HTN again - Patient Problems (1) GI bleed Comment: Presumed upper. Pt has h/o small bowel AVM's that was dx in [place] via capsule endoscopy. In [place] pt had EGD that was negative and colonoscopy with hyperplastic polyp. D/w Dr. Prakash who saw pt in consult. Pt refuses EGD and colonoscopy now. will treat medically with PPI annd NSAID avoidance Pt is aware that she should have a repeat capsule study as outpatient and to f/ u with Dr. Prakash (2) Uncontrolled hypertension Comment: Still uncontrolled .As d/w Dr. Becker Atenolol use is limited in dose due to CKD. will switch to Labetalol last night, will further increase the dose Clonidine. Imdur started on 11/27/17. On prn basis lopressor IV was ordered (3) Left shoulder pain Comment: resolved, stress test low prob today (4) CKD (chronic kidney disease) stage 4, GFR 15-29 ml/min Comment: due to DM and HTN with worsening, d/w Dr. Becker (5) Type II diabetes mellitus Comment: cont Lispro by SS. (6) Anemia due to acute blood loss Comment: Due to acute GI bleed. suspect known AVM's Due to pt's h/o CKD, HTN and that that she feels tired and weak , will transfuse 1 U PRBC today. (7) DVT prophylaxis Comment: SQ heparin stopped due to GI bleed, SCD's ordered Status and Disposition: inpatient
[2017-11-28 13:27] LABS: Hematocrit 21 % (35-47)
[2017-11-28] MEDS: Omeprazole CAP* 20 MG PO SCH (18:34)
[2017-11-28] MEDS: Nitro Patch/OINT Remove TOPICAL SCH (18:37)
[2017-11-28] MEDS ORDERED: Pantoprazole IV* 80 MG in NS 0.9% 250 ML* 250 ML IVPB SCH (19:30)
[2017-11-28 21:09] LABS: Hematocrit 25 % (35-47); Hemoglobin 8.1 g/dl (12.0-16.0)
[2017-11-29] MEDS: Metoprolol Tartrate IV* 1 MG/ML 5 ML VIAL IV PRN ×2 (03:40→11:05)
[2017-11-29] MEDS: HYDROcodone/ACETAMIN 5-325 MG* 1 TAB PO PRN (03:43)
[2017-11-29] MEDS: amLODIPine TAB* 5 MG PO SCH ×2 (06:18→09:55)
[2017-11-29 07:00] LABS: EGFR Non-African American 14.8 (>60); Hematocrit 24 % (35-47); Hemoglobin 8.3 g/dl (12.0-16.0); Mean Corpuscular HGB Conc 35 g/dl (31-36); Mean Corpuscular Hemoglobin 29 pg (27-31); Mean Corpuscular Volume 83 fL (80-97); Mean Platelet Volume 7.8 um3 (7.4-10.4); Platelet Count 271 10^3/ul (150-450); Red Blood Count 2.87 10^6/ul (4.0-5.4); Red Cell Distribution Width 17 % (10.5-15); White Blood Count 8.1 10^3/ul (3.5-10.8)
[2017-11-29] MEDS: Isosorbide Mononitrate ER TAB* 30 MG PO SCH (08:43)
[2017-11-29] MEDS: Insulin LISPRO* 1 UNITS UNIT SUBCUT SCH ×4 (08:43→22:40)
[2017-11-29] MEDS: Vitamin E CAP* 400 UNIT PO SCH (08:43)
[2017-11-29] MEDS: Labetalol TAB* 100 MG PO SCH (08:43)
[2017-11-29] MEDS: Omeprazole CAP* 20 MG PO SCH ×2 (08:44→16:17)
[2017-11-29] MEDS: cloNIDine TAB* 0.1 MG PO SCH ×3 (09:54→21:09)
[2017-11-29] MEDS: ALPRAZolam TAB* 0.25 MG PO PRN (11:05)
[2017-11-29] MEDS ORDERED: Labetalol TAB* 100 MG PO ONE (12:40)
[2017-11-29 12:50] LABS: Hematocrit 24 % (35-47); Hemoglobin 8.5 g/dl (12.0-16.0)
[2017-11-29] MEDS: NS 0.9% 1000 ML* 1,000 ML IV SCH (13:46)
--- NOTE | 2017-11-29 14:51 | PN ---
Subjective Date of Service: 11/29/17 Interval History: Pt feels well. Encouraged by her BP slowly improving. Had a long conversation about the importance of diet in CKD and HTN. SBP>200 today at 11 AM-pt was asymptomatic otherwise. Last BM noted >24H ago, no melena noted Objective Active Medications: Acetaminophen (Tylenol Tab*) 650 mg PO Q4H PRN PRN Reason: FEVER/PAIN Last Admin: 11/28/17 00:27 Dose: 650 mg Hydrocodone Bitart/Acetaminophen ([place] 5-325 Tab*) 1 tab PO Q4H PRN PRN Reason: PAIN Last Admin: 11/29/17 03:43 Dose: 1 tab Alprazolam (Xanax Tab*) 0.25 mg PO Q8H PRN PRN Reason: ANXIETY Last Admin: 11/29/17 11:05 Dose: 0.25 mg Amlodipine Besylate (Norvasc Tab*) 10 mg PO DAILY@0900 [facility] Last Admin: 11/29/17 09:55 Dose: Not Given Clonidine HCl (Catapres Tab*) 0.[address] [facility] Last Admin: 11/29/17 09:54 Dose: 0.4 mg Dextrose (D50w Syringe 50 Ml*) 12.5 gm IV PUSH .FOR FS < 60 - SS PRN PRN Reason: FS < 60 Fluticasone Propionate (Flonase Nasal [place] 50mcg*) 2 spray BOTH NARES DAILY PRN PRN Reason: CONGESTION Insulin Human Lispro (Humalog*) [address] [facility] PRN Reason: Protocol Last Admin: 11/29/17 12:34 Dose: 2 units Isosorbide Mononitrate (Imdur Er Tab*) [address] [facility] Last Admin: 11/29/17 08:43 Dose: 30 mg Labetalol HCl (Trandate Tab*) [address] [facility] Lorazepam (Ativan Tab(*)) 0.5 mg PO BEDTIME PRN PRN Reason: AGITATION/ANXIETY Last Admin: 11/28/17 00:33 Dose: 0.5 mg Metoprolol Tartrate (Lopressor Iv*) 5 mg IV Q4H PRN PRN Reason: BLOOD PRESSURE Last Admin: 11/29/17 11:05 Dose: 5 mg Omeprazole (Prilosec Cap*) 20 mg PO BID@0730,1630 [facility] Last Admin: 11/29/17 08:44 Dose: 20 mg Pharmacy Profile Note (Nitro Patch/Oint Remove*) [address] [facility] Last Admin: 11/28/17 18:37 Dose: Not Given Polyethylene Glycol/Electrolytes (Miralax*) 17 gm PO DAILY PRN PRN Reason: CONSTIPATION Last Admin: 11/26/17 21:01 Dose: 17 gm Vitamin E (Vitamin E Cap*) [address] [facility] Last Admin: 11/29/17 08:43 Dose: 400 unit Vital Signs - 8 hr 11/29/17 11/29/17 11/29/17 07:12 07:31 10:01 Temperature 97.5 F Pulse Rate 73 Respiratory 20 16 Rate Blood Pressure 158/68 178/88 (mmHg) O2 Sat by Pulse 98 Oximetry 11/29/17 11/29/17 11/29/17 10:50 11:05 11:34 Temperature Pulse Rate Respiratory 20 Rate Blood Pressure 210/90 174/86 (mmHg) O2 Sat by Pulse Oximetry 11/29/17 11/29/17 12:00 12:38 Temperature 97.7 F Pulse Rate 66 Respiratory 16 Rate Blood Pressure 150/65 162/84 (mmHg) O2 Sat by Pulse 100 Oximetry Oxygen Devices in Use Now: None Appearance: 67 yo F in nAD, aAOx3 Eyes: No Scleral Icterus, PERRLA Ears/Nose/Mouth/Throat: NL Teeth, Lips, Gums, Mucous Membranes Moist Neck: NL Appearance and Movements; NL JVP, Trachea Midline Respiratory: Symmetrical Chest Expansion and Respiratory Effort, Clear to Auscultation Cardiovascular: NL Sounds; No Murmurs; No JVD Abdominal: NL Sounds; No Tenderness; No Distention, No Hepatosplenomegaly Lymphatic: No Cervical Adenopathy Extremities: No Edema, No Clubbing, Cyanosis Skin: No Rash or Ulcers, No Nodules or Sclerosis Neurological: Alert and Oriented x 3, NL Muscle Strength and Tone Result Diagrams: 11/29/17 12:41 11/29/17 06:17 Microbiology and Other Data: Microbiology 11/27/17 15:12 Stool Occult Blood (STEFANIA) - Final Stool Assess/Plan/Problems-Billing Assessment: 67 yoF with h/o DM, HTN, CKD stage 3, HTN urgency presents with left shoulder pain and lightheadedness as well as uncontrolled HTN again - Patient Problems (1) GI bleed Comment: Presumed upper. Pt has h/o small bowel AVM's that was dx in [place] via capsule endoscopy. In [place] pt had EGD that was negative and colonoscopy with hyperplastic polyp. D/w Dr. Prakash who saw pt in consult. Pt refuses EGD and colonoscopy now. will treat medically with PPI annd NSAID avoidance Pt is aware that she should have a repeat capsule study as outpatient and to f/ u with Dr. Prakash (2) Uncontrolled hypertension Comment: Still uncontrolled .As d/w Dr. Becker Atenolol use is limited in dose due to CKD. Switched to to Labetalol on 11/28/17 night , will increase dose from 100 to 200 BID. Cont current dose of Clonidine. Imdur started on 11/27/17. On prn basis lopressor IV was ordered (3) Left shoulder pain Comment: resolved, stress test low prob this hospital stay (4) CKD (chronic kidney disease) stage 4, GFR 15-29 ml/min Comment: due to DM and HTN with worsening, d/w Dr. Becker (5) Type II diabetes mellitus Comment: cont Lispro by SS. (6) Anemia due to acute blood loss Comment: Due to acute GI bleed. suspect known AVM's S/p 1 U PRBC transusion on 11/28/17, Hb now stable. Pt sees for monthly Aranesp tx and intermittent iron infusions. will infuse Iron IV x 1 dose due to current GI bleed (7) DVT prophylaxis Comment: SQ heparin stopped due to GI bleed, SCD's ordered Status and Disposition: inpatient , poss D/C in AM if SBP<180
[2017-11-29] MEDS ORDERED: Ferric Gluconate IV* 125 MG in NS 0.9% 100 ML* 100 ML IVPB ONE (17:00)
[2017-11-29] MEDS: Nitro Patch/OINT Remove TOPICAL SCH (18:26)
[2017-11-29] MEDS: Labetalol TAB* 200 MG PO SCH (21:09)
[2017-11-29 23:01] LABS: Hematocrit 24 % (35-47); Hemoglobin 8.1 g/dl (12.0-16.0)
--- NOTE | 2017-11-30 04:07 | CONS ---
CC: Dr. Garcia * CONSULTATION: DATE OF CONSULT: 11/28/17 REQUESTING PHYSICIAN: Dr. Pal. INDICATION: Anemia. NARRATIVE: This is a pleasant 67-year-old female well known to myself. I have seen her in the past for anemia. The patient had moved to the [facility] sometime last year. Prior to leaving [place] in 2016, she did have a workup for her anemia. She did have an EGD and colonoscopy at that time. EGD was unremarkable. The colonoscopy revealed hyperplastic polyps. I do have those reports; however, she also tells me she had a small bowel capsule endoscopy, I do not have that report but she tells me that she had small bowel AVMs. The patient was admitted to the hospital a few days ago for hypertensive urgency. She states that she has been having black stool for the past week. She does take an aspirin every day. She denies any vomiting, she denies any bright red blood. She does admit to the black stools. No abdominal pain, no weakness, no dizziness. PAST MEDICAL HISTORY: 1. Significant for anemia presumed secondary to AVMs. 2. Hypertension. 3. Diabetes. 4. Hep C. 5. Breast cancer. 6. Hyperlipidemia. 7. Chronic kidney disease. PAST SURGICAL HISTORY: Include: 1. Cataracts. 2. Knee replacement. 3. Carpal tunnel. 4. Tubal ligation. MEDICATIONS: Include: 1. Norvasc. 2. Acetaminophen. 3. Atenolol. 4. Lorazepam. 5. Clonidine. 6. Aranesp. 7. Insulin. 8. Ranitidine. 9. Zinc. 10. Magnesium. ALLERGIES: To ENALAPRIL, DILTIAZEM, and VERAPAMIL. FAMILY HISTORY: Alcoholism, diabetes. SOCIAL HISTORY: She was a smoker; however, she quit recently. She is a recovering alcoholic. REVIEW OF SYSTEMS: Twelve systems were reviewed, other than that mentioned in the HPI were unremarkable. PHYSICAL EXAM: Temperature is 98, blood pressure is 165/71, pulse is 78. General: Well-appearing female, in no apparent distress. Alert, oriented, pleasant, and fluent. HEENT: Mucous membranes are moist without lesions, ulcers, or exudate. Neck is supple. Trachea is midline. Head is normocephalic , atraumatic. Heart: Regular rate and rhythm. Lungs: Clear to auscultation bilaterally. No wheezes, rales, or rhonchi. Abdomen: Positive bowel sounds. Soft, nontender, nondistended. No hepatosplenomegaly, masses, rebound, or guarding. Skin is warm and dry. LABORATORY DATA: Of note, she is heme positive. CBC shows a white count of 6.7 , hemoglobin went from 8.6 to 7.3, platelets are 276. BUN went from 28 to 26, creatinine is 3.08. ASSESSMENT AND PLAN: This a very pleasant 67-year-old female, who has a history of small bowel arteriovenous malformations in the past. She did have a negative EGD, colonoscopy done in [place] in 2016. At this point, she has been having hypertensive urgency, primary team is correcting this. She will need a further workup as an outpatient for her anemia. I had recommended she have either EGD or a capsule endoscopy when I last saw her in June 2017 ; however, the patient declined at that point. I have again recommended a capsule endoscopy, I think she is agreeable at this point. We will need to perform a capsule endoscopy as an outpatient. I will make arrangements for this once she is discharged. [id number]/[facility] #: [id number] ALLIE
[2017-11-30] MEDS: Metoprolol Tartrate IV* 1 MG/ML 5 ML VIAL IV PRN (04:39)
[2017-11-30] MEDS: LORazepam TAB(*) 0.5 MG PO PRN (04:43)
[2017-11-30 05:06] LABS: Hematocrit 24 % (35-47); Hemoglobin 8.1 g/dl (12.0-16.0); Mean Corpuscular HGB Conc 34 g/dl (31-36); Mean Corpuscular Hemoglobin 28 pg (27-31); Mean Corpuscular Volume 83 fL (80-97); Mean Platelet Volume 7.2 um3 (7.4-10.4); Platelet Count 279 10^3/ul (150-450); Red Blood Count 2.85 10^6/ul (4.0-5.4); Red Cell Distribution Width 17 % (10.5-15); White Blood Count 7.3 10^3/ul (3.5-10.8)
[2017-11-30 05:25] LABS: EGFR Non-African American 15.4 (>60)
[2017-11-30] MEDS: Omeprazole CAP* 20 MG PO SCH (07:59)
[2017-11-30] MEDS: amLODIPine TAB* 5 MG PO SCH (07:59)
[2017-11-30] MEDS: Vitamin E CAP* 400 UNIT PO SCH (07:59)
[2017-11-30] MEDS: cloNIDine TAB* 0.1 MG PO SCH (07:59)
[2017-11-30] MEDS: Isosorbide Mononitrate ER TAB* 30 MG PO SCH (07:59)
[2017-11-30] MEDS: Labetalol TAB* 200 MG PO SCH (07:59)
[2017-11-30] MEDS ORDERED: Labetalol TAB* 100 MG PO ONE (08:24)
--- NOTE | 2017-11-30 08:26 | PN ---
Subjective Date of Service: 11/30/17 Interval History: No c/o. anxious to go home. Objective Active Medications: Acetaminophen (Tylenol Tab*) 650 mg PO Q4H PRN PRN Reason: FEVER/PAIN Last Admin: 11/28/17 00:27 Dose: 650 mg Hydrocodone Bitart/Acetaminophen ([place] 5-325 Tab*) 1 tab PO Q4H PRN PRN Reason: PAIN Last Admin: 11/29/17 03:43 Dose: 1 tab Alprazolam (Xanax Tab*) 0.25 mg PO Q8H PRN PRN Reason: ANXIETY Last Admin: 11/29/17 11:05 Dose: 0.25 mg Amlodipine Besylate (Norvasc Tab*) 10 mg PO DAILY@0900 [facility] Last Admin: 11/30/17 07:59 Dose: 10 mg Clonidine HCl (Catapres Tab*) 0.4 mg PO TID [facility] Last Admin: 11/30/17 07:59 Dose: 0.4 mg Dextrose (D50w Syringe 50 Ml*) 12.5 gm IV PUSH .FOR FS < 60 - SS PRN PRN Reason: FS < 60 Fluticasone Propionate (Flonase Nasal [place] 50mcg*) 2 spray BOTH NARES DAILY PRN PRN Reason: CONGESTION Insulin Human Lispro (Humalog*) 0 units SUBCUT ACHS [facility] PRN Reason: Protocol Last Admin: 11/29/17 22:40 Dose: 8 units Isosorbide Mononitrate (Imdur Er Tab*) 30 mg PO DAILY [facility] Last Admin: 11/30/17 07:59 Dose: 30 mg Labetalol HCl (Trandate Tab*) 200 mg PO BID [facility] Last Admin: 11/30/17 07:59 Dose: 200 mg Lorazepam (Ativan Tab(*)) 0.5 mg PO BEDTIME PRN PRN Reason: AGITATION/ANXIETY Last Admin: 11/30/17 04:43 Dose: 0.5 mg Metoprolol Tartrate (Lopressor Iv*) 5 mg IV Q4H PRN PRN Reason: BLOOD PRESSURE Last Admin: 11/30/17 04:39 Dose: 5 mg Omeprazole (Prilosec Cap*) 20 mg PO BID@0730,1630 [facility] Last Admin: 11/30/17 07:59 Dose: 20 mg Pharmacy Profile Note (Nitro Patch/Oint Remove*) 0 note TOPICAL 1800 [facility] Last Admin: 11/29/17 18:26 Dose: Not Given Polyethylene Glycol/Electrolytes (Miralax*) 17 gm PO DAILY PRN PRN Reason: CONSTIPATION Last Admin: 11/26/17 21:01 Dose: 17 gm Vitamin E (Vitamin E Cap*) 400 unit PO DAILY [facility] Last Admin: 11/30/17 07:59 Dose: 400 unit Vital Signs - 8 hr 11/30/17 11/30/17 11/30/17 04:15 04:43 04:59 Temperature 98.4 F Pulse Rate 80 71 Respiratory 20 18 Rate Blood Pressure 167/66 151/65 (mmHg) O2 Sat by Pulse 99 Oximetry 11/30/17 11/30/17 11/30/17 06:45 07:12 07:48 Temperature 98.0 F Pulse Rate 71 85 Respiratory 18 20 Rate Blood Pressure 180/71 183/77 (mmHg) O2 Sat by Pulse 98 Oximetry Oxygen Devices in Use Now: None Appearance: Alert, sitting on the edge of her bed. In good spirits, looks comfortable. Eyes: No Scleral Icterus Extremities: No Edema, No Clubbing, Cyanosis, - Skin: No Rash or Ulcers, No Nodules or Sclerosis, - Neurological: Alert and Oriented x 3, NL Sensation Result Diagrams: 11/30/17 04:50 11/30/17 04:51 Microbiology and Other Data: Microbiology 11/27/17 15:12 Stool Occult Blood (STEFANIA) - Final Stool Assess/Plan/Problems-Billing Assessment: 67 yoF with h/o DM, HTN, CKD stage 3, HTN urgency presents with left shoulder pain and lightheadedness as well as uncontrolled HTN again - Patient Problems (1) Uncontrolled hypertension Current Visit: Yes Status: Acute Code(s): I10 - ESSENTIAL (PRIMARY) HYPERTENSION SNOMED Code(s): 12121787 Comment: Imdur started on 11/27/17. Well controlled; received labetalol 300 mg po AM 11/30. D/C on present doses of labetalol and isosorbide mononitrate. (2) CKD (chronic kidney disease) stage 4, GFR 15-29 ml/min Current Visit: No Status: Acute Code(s): N18.4 - CHRONIC KIDNEY DISEASE, STAGE 4 (SEVERE) SNOMED Code(s): 153250329 Comment: Fup with Dr. Becker. Est GFR 19.8 11/30/17. (3) GI bleed Current Visit: Yes Status: Acute Code(s): K92.2 - GASTROINTESTINAL HEMORRHAGE, UNSPECIFIED SNOMED Code(s): 76500186 Comment: Presumed upper. Pt has h/o small bowel AVM's that was dx in [place] via capsule endoscopy. In [place] pt had EGD that was negative and colonoscopy with hyperplastic polyp. Dr. Prakash who saw pt in consult. Plan is for her to have a repeat capsule study as outpatient and to f/u with Dr. Prakash (4) Type II diabetes mellitus Current Visit: No Status: Acute Comment: cont short-acting insulin at home by SS. (5) Hepatitis C antibody positive in blood Current Visit: No Status: Acute Code(s): R76.8 - OTHER SPECIFIED ABNORMAL IMMUNOLOGICAL FINDINGS IN SERUM SNOMED Code(s): 642147423 Comment: Successfully treated for Hep C by Dr. Wick. Status and Disposition: i Discharge now. Fup Jose Vieira.
[2017-11-30] MEDS: Insulin LISPRO* 1 UNITS UNIT SUBCUT SCH (08:42)
[2017-11-30] MEDS: ALPRAZolam TAB* 0.25 MG PO PRN (10:13)
--- NOTE | 2017-11-30 10:34 | PN ---
"Progress Note - Progress Note Date of Service: 11/30/17 Note: This report was requested by: Abe Barfield | Reference #: [id number] Others' Prescriptions Patient Name: Kristal Moreira Date: 1950 Address: [facility] [place] [address] Sex: Female Rx Written Rx Dispensed Drug Quantity Days Supply Prescriber Name 10/28/2017 10/30/2017 lorazepam 0.5 mg tablet 30 30 [place] 09/01/2017 09/02/2017 lorazepam 0.5 mg tablet 30 30 [place], Tyron Ochoa 07/21/2017 07/23/2017 lorazepam 0.5 mg tablet 30 30 [place] MD 06/04/2017 06/04/2017 lorazepam 0.5 mg tablet 30 30 [place]ev MD 04/17/2017 04/20/2017 lorazepam 0.5 mg tablet 30 30 [place]ev hernandez MD 03/19/2017 03/21/2017 lorazepam 0.5 mg tablet 30 30 [place] MD 02/04/2017 02/04/2017 lorazepam 0.5 mg tablet 30 30 [place] MD Patient Name: Kristal Moreira Date: 1950 Address: [address] [place] [address] [place] [address] Sex: Female Rx Written Rx Dispensed Drug Quantity Days Supply Prescriber Name 01/02/2017 01/03/2017 lorazepam 0.5 mg tablet 30 30 Ezekiel Sparks (FRAMING SPECIALIST) 12/18/2016 12/18/2016 lorazepam 0.5 mg tablet 14 14 Sherry Daniel (DO)"
[2017-11-30] MEDS ORDERED: LORazepam TAB(*) 0.5 MG PO PRN (10:55)
--- NOTE | 2017-11-30 11:01 | PN ---
Progress Note - Progress Note Date of Service: 11/30/17 Note: Time spent on discharge 55 minutes.
[2017-11-30 12:13] VITALS: BP 128/64
--- NOTE | 2017-11-30 18:06 | DS ---
CC: Dr. Garcia; Dr. Becker * DISCHARGE SUMMARY: DATE OF ADMISSION: DATE OF DISCHARGE: 11/30/17 HOSPITAL COURSE: This 67-year-old woman presented with dizziness, lightheadedness, and left shoulder pain. She was discharged the day before for hypertensive urgency. She had been well controlled in the hospital on atenolol 100 mg b.i.d. and terazosin 5 mg b.i.d. There was some problem with her insurance company; her terazosin was changed to 10 mg h.s., which I was told the insurance company would cover. The patient did not picker and packer her prescriptions from the pharmacy, the next day she felt ill as described above and was admitted with significantly elevated blood pressure. She was started on isosorbide mononitrate and labetalol. Her blood pressure was well controlled. I further increased her dose in the morning of discharge to 300 mg b.i.d. of labetalol. Her symptoms all resolved completely. I emphasized the importance of her getting her medications immediately on discharge and taking them starting this evening at home. FINAL DIAGNOSES: 1. Hypertension. 2. Chronic kidney disease with GFR of 19.8. 3. History of gastrointestinal bleed. 4. Diabetes. 5. Anxiety. DISCHARGE MEDICATIONS: 1. Isosorbide mononitrate 30 mg daily. 2. Labetalol 300 mg b.i.d. 3. Lorazepam 0.5 mg b.i.d. p.r.n. 4. Clonidine 0.2 mg t.i.d. 5. Ranitidine 150 mg b.i.d. 6. Aspart insulin 5 to 7 units t.i.d. by sliding scale. 7. Darbepoetin 200 mcg subcu monthly. 8. Vitamin E 400 units daily. 9. Zinc one tablet daily. 10. Magnesium oxide 250 mg daily. 11. Fluticasone nasal spray, 2 sprays both nares daily p.r.n. 12. Vitamin B12 2500 mcg daily. 13. Vitamin D3 50,000 units weekly. 14. Amlodipine 10 mg daily. 15. Acetaminophen 650 mg every 4 hours p.r.n. [id number]/[facility] #: [id number] [facility]
[2017-11-30] MEDS ORDERED: Labetalol TAB* 300 MG PO SCH (21:00)
--- NOTE | 2017-12-01 12:22 | ED ---
Leon Fernandez Stephanie, scribed for Shayan Jack MD on 11/26/17 at 1228 . Hypertension - HPI Summary HPI Summary: The pt is a 67 y/o F BIBA to the ED with c/o dizziness that began this morning at 08:30. Symptoms include L sided CP. She denies MAY. The pt reports that when she was walking her dog, she became lightheaded and had to sit down. The pt was recently discharged from the hospital for HTN. The pt stated that when she went to her pharmacy, they informed her that her insurance would not cover her new BP medication. Her CP is rated as a 6 in severity. The pt denies worsening CP with taking a deep breath. - History of Current Complaint Chief Complaint: EDHypertension Stated Complaint: HIGH BP Time Seen by Provider: 11/26/17 11:55 Hx Obtained From: Patient Onset/Duration: Started Hours Ago - 4, Still Present Timing: Constant Aggravating Factor(s): Nothing Alleviating Factor(s): Nothing Associated Signs & Symptoms: Chest Pain, Dizziness - Allergies/Home Medications Allergies/Adverse Reactions: Allergies Allergy/AdvReac Type Severity Reaction Status Date / Time diltiazem Allergy Palpitation Verified 11/26/17 12:00 s enalapril Allergy Swelling Verified 11/26/17 12:00 Of Face,Lips,& Throat verapamil Allergy Palpitation Verified 11/26/17 12:00 s Home Medications: Home Medications Atenolol [Tenormin 100 MG] 100 mg PO DAILY 11/26/17 [History Confirmed 11/26/17] PMH/Surg Hx/FS Hx/Imm Hx Endocrine/Hematology History: Reports: Hx Diabetes, Hx Anemia Denies: Hx Anticoagulant Therapy, Hx Blood Disorders, Hx Thyroid Disease, Hx Unexplained Bleeding Cardiovascular History: Reports: Hx Cardiomegaly - slightly enlarged per md, Hx Hypercholesterolemia, Hx Hypertension Denies: Hx Angina, Hx Atrial Fibrillation, Hx Coronary Artery Disease, Hx Myocardial Infarction, Hx Pacemaker/ICD, Hx Syncope, Hx Valvular Heart Disease Respiratory History: Denies: Hx Asthma, Hx Chronic Obstructive Pulmonary Disease (COPD) GI History: Reports: Hx Gastroesophageal Reflux Disease, Hx Gastrointestinal Bleed, Hx Irritable Bowel, 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 History: Reports: Hx Chronic Renal Failure Musculoskeletal History: Reports: Hx Orthopedic Injury - Left knee Denies: Hx Arthritis, Hx Osteoporosis Sensory History: Reports: Hx Cataracts, Hx Contacts or Glasses Denies: Hx Hearing Aid Opthamlomology History: Reports: Hx Cataracts, Hx Contacts or Glasses Neurological History: Reports: Hx Headaches Psychiatric History: Reports: Hx Anxiety - Cancer History Cancer Type, Location and Year: Breast CA Hx Chemotherapy: No - radiation Hx Radiation Therapy: Yes - Surgical History Surgery Procedure, Year, and Place: left knee replacement 2013 formerly [facility]. lumpectomy under right arm 2014. AVM repair 02/2016. right cataract surgery with lens implant 02/2016. right wrist surgery - carpal tunnel 1999. tubal ligation 1977 in [place]. repair of incision from tubal surgery Hx Anesthesia Reactions: No Infectious Disease History: No Infectious Disease History: Reports: Hx Hepatitis Denies: Traveled Outside the [place] in Last 30 Days - Family History Known Family History: Positive: Cardiac Disease, Diabetes - Social History Occupation: Retired Lives: Alone Alcohol Use: None Hx Substance Use: No Substance Use Type: Reports: None Hx Tobacco Use: Yes Smoking Status (MU): Former Smoker Amount Used/How Often: 1/2 ppd Length of Time of Smoking/Using Tobacco: Quit 11/28/2016 Have You Smoked in the Last Year: Yes Review of Systems Negative: Fever, Chills Negative: Erythema Negative: Sore Throat Negative: Chest Pain Negative: Shortness Of Breath, Cough Negative: Abdominal Pain, Vomiting, Nausea Negative: dysuria, hematuria Negative: Myalgia, Edema Negative: Rash Neurological: Other - Negative: dizziness Negative: Headache All Other Systems Reviewed And Are Negative: Yes Physical Exam - Summary Physical Exam Summary: Constitutional: Well-developed, Well-nourished, Alert. (-) Distressed Skin: Warm, Dry HENT: Normocephalic; Atraumatic Eyes: Conjunctiva normal Neck: Musculoskeletal ROM normal neck. (-) JVD, (-) Stridor, (-) Tracheal deviation Cardio: Rhythm regular, rate normal, Heart sounds normal; Intact distal pulses; The pedal pulses are 2+ and symmetric. Radial pulses are 2+ and symmetric. (-) Murmur Pulmonary/Chest wall: Effort normal. (-) Respiratory distress, (-) Wheezes, (-) Rales Abd: Soft, (-) Tenderness, (-) Distension, (-) Guarding, (-) Rebound Musculoskeletal: (-) Edema Lymph: (-) Cervical adenopathy Neuro: Alert, Oriented x3 Psych: Mood and affect Normal Triage Information Reviewed: Yes Vital Signs On Initial Exam: Initial Vitals Temp Pulse Resp BP Pulse Ox 98.8 F 71 25 170/69 100 11/26/17 11:58 11/26/17 11:58 11/26/17 11:58 11/26/17 11:58 11/26/17 11:58 Vital Signs Reviewed: Yes Diagnostics - Vital Signs Vital Signs Temp Pulse Resp BP Pulse Ox 11/26/17 11:58 98.8 F 71 25 170/69 100 - Laboratory Result Diagrams: 11/26/17 12:19 11/26/17 12:19 Lab Statement: Any lab studies that have been ordered have been reviewed, and results considered in the medical decision making process. - Radiology CXR Xray Interpretation: No Acute Changes Radiology Interpretation Completed By: Radiologist - CARDIOMEGALY. NO ACTIVE CARDIOPULMONARY DISEASE. ED physician has reviewed this report. - EKG 12:09 Cardiac Rate: NL EKG Rhythm: Sinus Rhythm - 71 BPM EKG Interpretation: No STEMI Re-Evaluation - Re-Evaluation First Eval Re-Evaluation Time: 15:03 Change: Improved - BP improved with nitro. CP resolved after nitro. Hypertension Course/Dx - Course Course Of Treatment: Blood pressure improved with nitro. CP resolved with nitro. The pt will be admitted to the hospital for continued BP control and further evaluation of CP. Failed d/c of hospital. Bounce back to medicine service. - Diagnoses Provider Diagnoses: Noncompliance with medication regimen, Hypertension, uncontrolled, Chest pain, unspecified - Physician Notifications Discussed Care Of Patient With: Aydee Pal Time Discussed With Above Provider: 14:48 Instructed by Provider To: Admit As Inpatient Discharge - Sign-Out/Discharge Documenting (check all that apply): Discharge - Discharge Plan Condition: Stable Disposition: ADMITTED TO [facility] Referrals: Tyron Garcia MD [Primary Care Provider] - The documentation as recorded by the Leon boggs Stephanie accurately reflects the service I personally performed and the decisions made by , Shayan Jack MD.
== END 2017-11-30 12:20 | disposition home health service (06) | DRG 682 ==
LOC: ED 11:50 → MEDTELE 16:35 → OBSVTOIN 11-27 11:23
PROVIDERS: ADMIT Internal Medicine; ATTEND Internal Medicine
PROC: 30233N1 Transfusion of Nonautologous Red Blood Cells into Peripheral Vein, Percutaneous Approach (ICD-10-PCS; principal; 2017-11-28)
DX: I12.9 Hypertensive chronic kidney disease with stage 1 through stage 4 chronic kidney disease, or unspecified chronic kidney disease (principal); K55.21 Angiodysplasia of colon with hemorrhage; N18.4 Chronic kidney disease, stage 4 (severe); D62 Acute posthemorrhagic anemia; E11.22 Type 2 diabetes mellitus with diabetic chronic kidney disease; E78.00 Pure hypercholesterolemia, unspecified; K21.9 Gastro-esophageal reflux disease without esophagitis; K58.9 Irritable bowel syndrome, unspecified; M17.11 Unilateral primary osteoarthritis, right knee; F41.9 Anxiety disorder, unspecified; D50.8 Other iron deficiency anemias; M25.512 Pain in left shoulder; K63.5 Polyp of colon; Z96.652 Presence of left artificial knee joint; E11.40 Type 2 diabetes mellitus with diabetic neuropathy, unspecified; B18.2 Chronic viral hepatitis C; Z96.1 Presence of intraocular lens; Z82.49 Family history of ischemic heart disease and other diseases of the circulatory system; Z83.3 Family history of diabetes mellitus; Z98.51 Tubal ligation status; Z88.8 Allergy status to other drugs, medicaments and biological substances; Z85.3 Personal history of malignant neoplasm of breast; Z92.3 Personal history of irradiation; Z98.41 Cataract extraction status, right eye; Z87.891 Personal history of nicotine dependence; Z91.14 Patient's other noncompliance with medication regimen; Z98.42 Cataract extraction status, left eye; Z81.1 Family history of alcohol abuse and dependence
CPT/HCPCS: 36415; 71045; 78452; 80048; 80053; 81003; 81015; 82272; 83605; 84484; 85014; 85018; 85025; 85027; 85379; 86850; 86900; 86901; 86922; 87077; 87086; 87186; 93005; 93017; 99284; A9270-GY; A9502; G0378; J0360; J1644; J2785; J2916; J3490; P9016

== ENCOUNTER 2017-12-04 17:02 | Emergency (ER) | payer MEDICARE ==
--- NOTE | 2017-12-04 18:20 | RAD ---
Indication: Hypertension. Comparison: November 26, 2017 Technique: Upright AP 1756 hours Report: Elevated lung volumes. Clear lungs and pleural spaces. Negative for pneumothorax. Cardiomegaly. Unremarkable central pulmonary vasculature and mediastinal contours. RIGHT breast and axillary surgical clips. IMPRESSION: Stigmata of probable chronic obstructive pulmonary disease. Cardiomegaly. No acute cardiopulmonary process evident.
[2017-12-04 18:24] LABS: ABS Basophils 0.1 10^3/ul (0-0.2); ABS Eosinophils 0.1 10^3/ul (0-0.6); ABS Lymphocytes 0.9 10^3/ul (1.0-4.8); ABS Monocytes 0.7 10^3/ul (0-0.8); ABS Neutrophils 4.5 10^3/ul (1.5-7.7); ABS Nucleated RBC 0 10^3/ul; Hematocrit 25 % (35-47); Hemoglobin 8.5 g/dl (12.0-16.0); Lymphocyte % 13.7 % (25-47); Mean Corpuscular HGB Conc 34 g/dl (31-36); Mean Corpuscular Hemoglobin 29 pg (27-31); Mean Corpuscular Volume 84 fL (80-97); Mean Platelet Volume 7.3 um3 (7.4-10.4); Nucleated Red Blood Cells % 0; Platelet Count 338 10^3/ul (150-450); Red Blood Count 2.98 10^6/ul (4.0-5.4); Red Cell Distribution Width 17 % (10.5-15); White Blood Count 6.2 10^3/ul (3.5-10.8)
[2017-12-04 18:46] LABS: EGFR Non-African American 14.2 (>60)
[2017-12-04 19:38] VITALS: BP 169/65
--- NOTE | 2017-12-04 20:15 | ED ---
Concepción Fernandez Thomas, scribed for Celio Marinelli MD on 12/04/17 at 1756 . Hypertension - HPI Summary HPI Summary: The patient is a 67 year old female presenting to the emergency department at the advice of her visiting nurse, who noted that the patients blood pressured was 190/90 and 200/90. The patient was [place] [facility] [place] on 11/30/17. The patient is on amlodipine, clonidine, labatolol, and isosorbite. She complains of left upper chest pain and lower back pain when her BP gets high but not anymore as she took an extra dose of Labetalol after she was told that her BP was high by her visiting nurse who also advised her to come to ER. - History of Current Complaint Chief Complaint: EDHypertension Stated Complaint: POSS. HIGH BLOOD PRESS. Time Seen by Provider: 12/04/17 17:34 Hx Obtained From: Patient Onset/Duration: Still Present Timing: Constant Reported Blood Pressure Prior To Arrival: 200/90 Aggravating Factor(s): Nothing Alleviating Factor(s): Nothing Associated Signs & Symptoms: Chest Pain - Allergies/Home Medications Allergies/Adverse Reactions: Allergies Allergy/AdvReac Type Severity Reaction Status Date / Time diltiazem Allergy Palpitation Verified 12/04/17 17:03 s enalapril Allergy Swelling Verified 12/04/17 17:03 Of Face,Lips,& Throat hydralazine Allergy Palpitation Verified 12/04/17 17:03 s verapamil Allergy Palpitation Verified 12/04/17 17:03 s PMH/Surg Hx/FS Hx/Imm Hx Endocrine/Hematology History: Reports: Hx Diabetes, Hx Anemia Denies: Hx Anticoagulant Therapy, Hx Blood Disorders, Hx Thyroid Disease, Hx Unexplained Bleeding Cardiovascular History: Reports: Hx Cardiomegaly - slightly enlarged per md, Hx Hypercholesterolemia, Hx Hypertension, Other Cardiovascular Problems/Disorders - DIABETIC Denies: Hx Angina, Hx Atrial Fibrillation, Hx Coronary Artery Disease, Hx Myocardial Infarction, Hx Pacemaker/ICD, Hx Syncope, Hx Valvular Heart Disease Respiratory History: Denies: Hx Asthma, Hx Chronic Obstructive Pulmonary Disease (COPD) GI History: Reports: Hx Gastroesophageal Reflux Disease, Hx Gastrointestinal Bleed, Hx Irritable Bowel, 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 History: Reports: Hx Chronic Renal Failure Musculoskeletal History: Reports: Hx Orthopedic Injury - Left knee Denies: Hx Arthritis, Hx Osteoporosis Sensory History: Reports: Hx Cataracts, Hx Contacts or Glasses Denies: Hx Hearing Aid Opthamlomology History: Reports: Hx Cataracts, Hx Contacts or Glasses Neurological History: Reports: Hx Headaches Psychiatric History: Reports: Hx Anxiety - Cancer History Cancer Type, Location and Year: Breast CA Hx Chemotherapy: No - radiation Hx Radiation Therapy: Yes - Surgical History Surgery Procedure, Year, and Place: left knee replacement 2013 formerly [facility], [facility]. lumpectomy under right arm 2014. AVM repair 02/2016. right cataract surgery with lens implant 02/2016. right wrist surgery - carpal tunnel 1999. tubal ligation 1977 in [place]. repair of incision from tubal surgery Hx Anesthesia Reactions: No Infectious Disease History: No Infectious Disease History: Reports: Hx Hepatitis Denies: Hx of Known/Suspected MRSA, Traveled Outside the in Last 30 Days - Family History Known Family History: Positive: Cardiac Disease, Diabetes - Social History Alcohol Use: None Hx Substance Use: No Substance Use Type: Reports: None Hx Tobacco Use: Yes Smoking Status (MU): Former Smoker Amount Used/How Often: 1/2 ppd Length of Time of Smoking/Using Tobacco: Quit 11/28/2016 Have You Smoked in the Last Year: Yes Review of Systems Negative: Fever Positive: Chest Pain, Other - Elevated BP Positive: Other - Lower back pain All Other Systems Reviewed And Are Negative: Yes Physical Exam - Summary Physical Exam Summary: Appearance: Well-appearing, Well-nourished Skin: Warm Eyes: Normal ENT: Normal Neck: Supple, nontender Respiratory: Clear to auscultation Cardiovascular: Regular rate, regular rhythm. Normal S1, S2. Abdomen: Soft, nontender Musculoskeletal: Normal, Strength/ROM Intact Neurological: Normal, A&Ox3 Psychiatric: Normal General: No acute distress Triage Information Reviewed: Yes Vital Signs On Initial Exam: Initial Vitals Temp Pulse Resp BP Pulse Ox 97.9 F 87 14 181/82 100 12/04/17 17:06 12/04/17 17:06 12/04/17 17:06 12/04/17 17:06 12/04/17 17:06 Vital Signs Reviewed: Yes Diagnostics - Vital Signs Vital Signs Temp Pulse Resp BP Pulse Ox 12/04/17 17:06 97.9 F 87 14 181/82 100 - Laboratory Result Diagrams: 12/04/17 18:18 12/04/17 18:18 Lab Statement: Any lab studies that have been ordered have been reviewed, and results considered in the medical decision making process. - Radiology CXR Xray Interpretation: No Acute Changes - IMPRESSION: Stigmata of probable chronic obstructive pulmonary disease. Cardiomegaly. No acute cardiopulmonary process evident. Dr. Marinelli has reviewed this report. Radiology Interpretation Completed By: Radiologist - EKG 17:06 Cardiac Rate: NL EKG Rhythm: Sinus Rhythm - at 86 BPM EKG Interpretation: No ST or T changes. No T-wave inversions. Hypertension Course/Dx - Course Course Of Treatment: Pt's SBP decreased form 200's (from home) to 180's to 170' s and 150's/70's. Pt stated she took an extra dose of Labetalol at home before coming to ED after her nurse told her about hjer high BP. I advised pt to take follow with her vocal artist and let the doctor know what happened, which she agreed she'd do; also admits to eating cheese with her salad which may have influenced her increased BP. Advised strictly BLAND diet. Labs and trop neg - Diagnoses Provider Diagnoses: Uncontrolled hypertension, Stage III chronic kidney disease Discharge - Sign-Out/Discharge Documenting (check all that apply): Discharge - Discharge Plan Condition: Stable Disposition: HOME Referrals: Tyron Garcia MD [Primary Care Provider] - Additional Instructions: Follow up with your vocal artist in one week - Billing Disposition and Condition Condition: STABLE Disposition: HOME The documentation as recorded by the Concepción boggs Thomas accurately reflects the service I personally performed and the decisions made by me, Celio Marinelli MD.
== END 2017-12-04 19:38 | disposition home or self-care (01) ==
LOC: ED 17:02
DX: I12.9 Hypertensive chronic kidney disease with stage 1 through stage 4 chronic kidney disease, or unspecified chronic kidney disease (principal); N18.3 Chronic kidney disease, stage 3 (moderate); E11.22 Type 2 diabetes mellitus with diabetic chronic kidney disease; I51.7 Cardiomegaly; E78.00 Pure hypercholesterolemia, unspecified; K21.9 Gastro-esophageal reflux disease without esophagitis; F41.9 Anxiety disorder, unspecified; Z87.891 Personal history of nicotine dependence
CPT/HCPCS: 36415; 71045; 80053; 84484; 85025; 93005; 99282

== ENCOUNTER 2018-01-06 00:49 | Emergency (ER) | payer MEDICARE ==
--- OUTSIDE RECORDS SUMMARY | 2018-01-06 01:34 | XMS REPORT ---
:1950 External Reference #:[id number] Author Organization [facility] Address [address] [place] [address] Phone [phone] Care Team Providers Name Role Phone Tyron Garcia MD Primary Care Physician Unavailable Payers Type Date Identification Numbers Payment Provider Subscriber Medicare Primary Policy Number: [id number] Medicare Kristal Moreira PayID: [id number] [facility] [address] [place] [address] Commercial Effective: 2016 Policy Number: Belia Care Kristal Bassett [facility] [id number] Expires: 2017 Group Number: 90% [id number] PayID: [id number] [address] Advance Directives Type Date Description Status Comment Other Directive 04/20/2017 [facility] Care Proxy Current and Verified Problems [...] Sparks NP Active neoplasm of breast Note: [id number] 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 06/19/15, ER+/DE+, Her2 normal Onset: 11/06/2016 Uterine leiomyoma Ezekiel [...] Lives With Alone Occupation Retired Cigarette Use Former Cigarette Smoker Cigarette Use Former Cigarette Smoker 5-10 Cigarettes Daily ETOH Use 04/20/2017 Denies alcohol use Recreational [...] Form Strength Qnty SIG Indications Ordering Provider Isosorbide 11/30/ Active Tablets ER 30mg 30tab 1 by mouth Tyron Mononitrate 2018 24HR s every day Chloé Garcia ER Salome,FACP Labetalol HCL 11/30/ Active Tablets 300mg 60tab 1 by mouth Tyron 2018 s twice a day Chloé Garcia M.D.,FACP BD Pen 01/30/ Active Misc 31G X 5 200un bid for Tyron Needle/Mini/U 2017 mm its lantus and Chloé Garcia, ltrafine/31G tid for Salome,FACP X 11/06" novalog or as needed Onetouch 09/19/ Active Strips 100un test up to E11.40 Tyron Ultra Blue 2017 its four times a Chloé Garcia, day and as Salome,FACP directed Onetouch 09/19/ Active Misc 100un check BS qid E11.42 Tyron Gonzalez 2017 its and prn last Chloé Garcia, visit Salome,FACP 06/22/17 Amlodipine 00/00/ Active Tablets 10mg 30tab 1 by mouth I10 Cathy Besylate 0000 s every day Taylor, INVENTORY ANALYST Anastrozole 00/ Active Tablets 1mg 1 by mouth K64.9 [...] each J30.89 Ezekiel Propionate 0000 nostril daily Slovak, as needed INVENTORY ANALYST Vitamin B12 / Active Tablets ER 2500mcg [...] as E11.40 Unknown 0000 neede hypoglycemia Novolog / Active Solution 100Unit/M 15ml 5 units SC E11.40 Meagan Menchaca 0000 Pen-Inject L qAC if fs D. [place], 100-150, 7 M.D.,FACP units SC if FS 151-200, 9 units SC if FS >200 Aranesp / Active Solution 200mcg/ML SC monthly Unknown (Albumin [address] Avalos) Rupert Lantus / Active Solution 100Unit/M 15uni 20 units subq E11.40 Ivania S. Solostar 0000 Pen-Inject L ts twice a day Robert, N.P. Ranitidine / Active Capsules 150mg 60cap 1 by mouth K21.9 Cathy HCL 0000 s twice a day Taylor, as needed INVENTORY ANALYST K62.5 Clonidine HCL Active Tablets 0.2mg 90tabs 1 by mouth I10 Tyron Luevano three times [place], a day M.D.,FACP Lorazepam Active Tablets 0.5mg 60tabs 1 tab twice G47.00 Tyron Luevano a day as [place], needed, mdd M.D.,FACP 2 F41.9 Acetaminophen ER Active Tablets ER 650mg 1 tab by Unknown mouth q4 hours as needed pain Terazosin HCL Active Capsules 10mg take 1 Unknown capsule by mouth every evening Vitamin K2 Active Capsules 100mcg daily Unknown Iron Up Active Liquid 15mg/0. pt purchased Unknown 5ML OTC and reports that she takes 10ml daily Alprazolam 11/30/2017 - Hx Tablets 0.25mg one by mouth Unknown 12/11/2017 up to twice daily as needed for anxiety Terazosin HCL 11/30/2017 - Hx Capsules 5mg 60 1 by mouth Tyron 12/11/2017 ca twice daily chanell Donovan M.D.,FACP Coreg 11/19/2017 - Hx Tablets 25mg 12 1 by mouth I1 Ivania S. 12/11/2017 0t twice a day 0 ab Robert N.P. s Coreg 11/06/2017 - Hx Tablets 6.25mg 18 2 tab by I1 Ivania S. 11/19/2017 0t mouth twice a 0 ab Robert day N.P. s Hydralazine HCL 11/03/2017 - Hx Tablets 25mg 90 1 by mouth I1 Qutaybeh 11/09/2017 ta three 0 S. bs times/day (pt Vinicio, not taking) Salome Gonzalez 08/10/2017 - Hx 30 Duration of Tyron 08/10/2017 6u need--99--Kayden Garcia, ni etime. E11.9 M.D.,FACP ts Xultophy 06/22/2017 - Hx Solution 100-3.6 15 inject 20 E1 Tyron 11/16/2017 Pen-Inject Unit-mg ml units sc in 1. D. Jose, /ML in the 40 M.D.,FACP morning, increase by 2 units every 2 days, maximum dose 40 units 11/03/17 pt not taking, Ferrex 150 04/29/2017 - Hx Capsules 150mg 60 1 by mouth Tyron 11/02/2017 ca twice day chanell Donovan M.D.,FACP Atenolol 04/22/2017 - Hx Tablets 25mg 12 2 tabs PO bid I1 Tyron 12/11/2017 0t (on hold 0 Chloé Garcia ab 11/11/17) was Salome,FACP s stopped Zepatier 03/20/2017 - Hx Tablets 50-100m 30 1 by mouth Jhonatan Luevano 07/06/2017 g ta every day mele Carey M.D. Ferrous Sulfate 12/22/2016 - Hx Tablets 325(65F 30 1 by mouth qd Other 02/16/2017 e) mg ta Ordering bs Provider Benazepril HCL 12/22/2016 - Hx Tablets 10mg 30 1 tab po qd Ezekiel 01/01/2017 ta MARK Sparks Metformin HCL ER (Mod) 12/22/2016 - Hx Tablets ER 1000mg 30 1 tab by E1 Tyron 12/11/2017 24HR ta mouth in the 1. D. mele Garcia in the 42 M.DQuita,QAMAR morning with first meal of the day Metformin HCL 12/16/2016 - Hx Tablets 500mg 60 1 by mouth E1 Ezekiel 12/16/2016 ta twice a day 1. MARK Sparks bs 40 Probiotic - Hx Capsules 1 by mouth Unknown 09/19/2016 every day Triamterene/Hydrochlor - Hx Tablets 37.5-25 30 1 by mouth I1 Ezekiel othiazide 12/22/2016 mg ta every day 0 MARK Sparks Cod Liver Oil W/Vit A - Hx Capsules 1daily E7 Unknown & D 01/01/2017 8. 1 Hydrochlorothiazide - Hx Tablets 25mg 30 1 by mouth I1 Ezekiel 01/05/2017 ta every day 0 MARK Sparks Feraheme - Hx Solution 510mg/1 17 Unknown 02/16/2017 7ML milliliters iv x1, repeat in [address] Emery Atenolol - Hx Tablets 50mg 60 1 by mouth I1 Tyron 04/22/2017 ta twice daily 0 mele Donovan M.D.,FACP Clonidine HCL - Hx Tablets 0.2mg 90 1 by mouth I1 Kev 11/02/2017 ta three times a 0 mele Palomo day M.DQuita Terazosin HCL - Hx Capsules 5mg 60 1 by mouth Unknown 11/30/2017 ca twice daily ps Medications Administered in Office Medication Date Status Form Strength Qnty SIG Indications Ordering Provider Depomedrol Administered Injection Mariana 40MG Manolo Javier M.D. Immunizations CPT Code Status Date Vaccine Lot # [id number] Given 06/11/2017 Influenza Virus Vaccine, Quadrivalent, Split, [id number] Preservative Free [id number] Given 04/20/2017 Pneumococcal Conjugate Vaccine 13 Valent For [id number] Intramuscular Use Vital Signs Date Vital Result Comment 12/11/2017 Weight 185.44 lb Heart Rate 82 /min BP Systolic Sitting 150 mmHg BP Diastolic Sitting 72 mmHg Body Temperature 98.1 F O2 % BldC Oximetry 98 % 11/24/2017 Height 60 inches 5'0" Weight 189.00 lb w/shoes Heart Rate 108 /min BP Systolic Sitting 240 mmHg L/Arm reg cuff BP Diastolic Sitting 90 mmHg L/Arm reg cuff BP Systolic Standing 240 mmHg L/Arm reg cuff BP Diastolic Standing 90 mmHg L/Arm reg cuff BMI (Body Mass Index) 36.9 kg/m2 Ejection Fraction 55-60% echo 01/14/2017 11/19/2017 Height 60 inches 5'0" Weight 184.00 [...] Test Date Test Result H/L Range Note CBC Auto Diff 12/10/2017 White Blood Count 7.5 10^3/uL 3.5-10.8 Red Blood Count 3.19 10^6/uL Low 4.0-5.4 Hemoglobin 8.9 g/dL Low 12.0-16.0 Hematocrit 26 % Low 35-47 Mean Corpuscular Volume 83 fL 80-97 Mean Corpuscular Hemoglobin 28 pg 27-31 Mean Corpuscular HGB Conc 34 g/dL 31-36 Red Cell Distribution Width 17 % High 10.5-15 Platelet Count 414 10^3/uL 150-450 Mean Platelet Volume 8.0 um3 7.4-10.4 Abs Neutrophils 5.5 10^3/uL 1.5-7.7 Abs Lymphocytes 1.2 10^3/uL 1.0-4.8 Abs Monocytes 0.7 10^3/uL 0-0.8 Abs Eosinophils 0.1 10^3/uL 0-0.6 Abs Basophils 0.1 10^3/uL 0-0.2 Abs Nucleated RBC 0 10^3/uL Granulocyte % 72.5 % 38-83 Lymphocyte % 16.4 % Low 25-47 Monocyte % 9.2 % High 0-7 Eosinophil % 0.9 % 0-6 Basophil % 1.0 % 0-2 Nucleated Red Blood Cells % 0 Comp Metabolic Panel 12/10/2017 Sodium 134 mmol/L Low 139-145 Potassium 5.0 mmol/L 3.5-5.0 Chloride 105 mmol/L 101-111 Co2 Carbon Dioxide 21 mmol/L Low 22-32 Anion Gap 8 mmol/L 2-11 Glucose 145 mg/dL High 70-100 Blood Urea Nitrogen 22 mg/dL 6-24 Creatinine 3.21 mg/dL High 0.51-0.95 One Over Creatinine 0.31 mg/dL Low 0.51-0.95 BUN/Creatinine Ratio 6.9 Low 8-20 Calcium 9.4 mg/dL 8.6-10.3 Total Protein 6.4 g/dL 6.4-8.9 Albumin 3.4 g/dL 3.2-5.2 Globulin 3.0 g/dL 2-4 Albumin/Globulin Ratio 1.1 1-3 Total Bilirubin 0.20 mg/dL 0.2-1.0 Alkaline Phosphatase 142 U/L High 34-104 Alt 35 U/L 7-52 Ast 24 U/L 13-39 Egfr Non- 14.4 >60 Egfr 18.6 >60 1 Laboratory test finding 12/10/2017 Uric Acid 7.3 mg/dL High 2.3-6.6 Phosphorus 4.6 mg/dL 2.5-5.0 Magnesium 2.2 mg/dL 1.9-2.7 Iron & Iron Binding Capacity 12/10/2017 Iron 42 g/dL Low 50-212 Unsaturated Iron Binding 343 g/dL Total Iron Binding Capacity 385 g/dL 250-450 Transferrin 275 mg/dL 203-362 % Iron Saturation 11 % Low 15-55 Laboratory test finding 12/10/2017 Ferritin 145.6 ng/mL 11-307 Urea Nitrogen Clearance 12/10/2017 BUN Serum 21 mg/dL 6-24 Urine Collection Time 24 hr Urine Total Volume 3250 mL Urine Random Urea Nitrogen 87 mg/dL Urea Nitrogen Clearance 9 mL/min Low 59-99 Creatinine Clearance 12/10/2017 Creatinine 3.27 mg/dL High 0.51-0.95 Urine Random Creatinine 31.36 mg/dL Creatinine Clearance 22 mL/min Low 88-128 Total Protein 24HR Urine 12/10/2017 Urine Collection Time 24 hr Urine Total Volume 3250 mL Urine Random Total Protein 143 mg/dL Urine Total Protein/24HR 4647 mg/24Hr High 0-165 Comp Metabolic Panel 12/04/2017 Sodium 135 mmol/L Low 139-145 Potassium 4.1 mmol/L 3.5-5.0 Chloride 105 mmol/L 101-111 Co2 Carbon Dioxide 21 mmol/L Low 22-32 Anion Gap 9 mmol/L 2-11 Glucose 75 mg/dL 70-100 Blood Urea Nitrogen 21 mg/dL 6-24 Creatinine 3.25 mg/dL High 0.51-0.95 BUN/Creatinine Ratio 6.5 Low 8-20 Calcium 9.0 mg/dL 8.6-10.3 Total Protein 6.7 g/dL 6.4-8.9 Albumin 3.2 g/dL 3.2-5.2 Globulin 3.5 g/dL 2-4 Albumin/Globulin Ratio 0.9 Low 1-3 Total Bilirubin 0.20 mg/dL 0.2-1.0 Alkaline Phosphatase 106 U/L High 34-104 Alt 35 U/L 7-52 Ast 44 U/L High 13-39 Egfr Non- 14.2 >60 Egfr 18.3 >60 2 Laboratory test finding 12/04/2017 Troponin-I (TnI) 0.01 ng/mL <0.04 Comp Metabolic Panel 11/26/2017 Sodium 136 mmol/L Low 139-145 Potassium 4.6 mmol/L 3.5-5.0 Chloride 106 mmol/L 101-111 Co2 Carbon Dioxide 22 mmol/L 22-32 Anion Gap 8 mmol/L 2-11 Glucose 116 mg/dL High 70-100 Blood Urea Nitrogen 26 mg/dL High 6-24 Creatinine 3.18 mg/dL High 0.51-0.95 BUN/Creatinine Ratio 8.2 8-20 Calcium 9.0 mg/dL 8.6-10.3 Total Protein 6.7 g/dL 6.4-8.9 Albumin 3.3 g/dL 3.2-5.2 Globulin 3.4 g/dL 2-4 Albumin/Globulin Ratio 1.0 1-3 Total Bilirubin 0.20 mg/dL 0.2-1.0 Alkaline Phosphatase 117 U/L High 34-104 Alt 35 U/L 7-52 Ast 40 U/L High 13-39 Egfr Non- 14.6 >60 Egfr 18.8 >60 3 Laboratory test finding 11/26/2017 Lactic Acid 0.9 mmol/L 0.5-2.0 4 Troponin-I (TnI) 0.01 ng/mL <0.04 CBC Auto Diff 11/26/2017 White Blood Count 7.7 10^3/uL 3.5-10.8 Red Blood Count 3.17 10^6/uL Low 4.0-5.4 Hemoglobin 8.6 g/dL Low 12.0-16.0 Hematocrit 26 % Low 35-47 Mean Corpuscular Volume 82 fL 80-97 Mean Corpuscular Hemoglobin 27 pg 27-31 Mean Corpuscular HGB Conc 33 g/dL 31-36 Red Cell Distribution Width 17 % High 10.5-15 Platelet Count 300 10^3/uL 150-450 Mean Platelet Volume 7.3 um3 Low 7.4-10.4 Abs Neutrophils 6.0 10^3/uL 1.5-7.7 Abs Lymphocytes 0.9 10^3/uL Low 1.0-4.8 Abs Monocytes 0.7 10^3/uL 0-0.8 Abs Eosinophils 0 10^3/uL 0-0.6 Abs Basophils 0 10^3/uL 0-0.2 Abs Nucleated RBC 0 10^3/uL Granulocyte % 77.9 % 38-83 Lymphocyte % 12.2 % Low 25-47 Monocyte % 8.9 % High 0-7 Eosinophil % 0.6 % 0-6 Basophil % 0.4 % 0-2 Nucleated Red Blood Cells % 0 Laboratory test 11/26/2017 Troponin-I (TnI) 0.01 ng/mL <0.04 finding Laboratory test 11/26/2017 D Dimer Quantitative 251 ng/mL High Less Than 230 5 finding Laboratory test 11/26/2017 Point of Care Glucose 107 mg/dL High 70-100 6 finding Laboratory test 11/24/2017 Lactic Acid 1.0 mmol/L 0.5-2.0 7 finding CBC Auto Diff 11/24/2017 White Blood Count 10.7 10^3/uL 3.5-10.8 Red Blood Count 3.39 10^6/uL Low 4.0-5.4 Hemoglobin 9.2 g/dL Low 12.0-16.0 Hematocrit 27 % Low 35-47 Mean Corpuscular Volume 80 fL 80-97 Mean Corpuscular Hemoglobin 27 pg 27-31 Mean Corpuscular HGB Conc 34 g/dL 31-36 Red Cell Distribution Width 16 % High 10.5-15 Platelet Count 378 10^3/uL 150-450 Mean Platelet Volume 7.8 um3 7.4-10.4 Abs Neutrophils 7.8 10^3/uL High 1.5-7.7 Abs Lymphocytes 1.8 10^3/uL 1.0-4.8 Abs Monocytes 0.9 10^3/uL High 0-0.8 Abs Eosinophils 0.1 10^3/uL 0-0.6 Abs Basophils 0.1 10^3/uL 0-0.2 Abs Nucleated RBC 0 10^3/uL Granulocyte % 73.0 % 38-83 Lymphocyte % 17.3 % Low 25-47 Monocyte % 8.0 % High 0-7 Eosinophil % 0.7 % 0-6 Basophil % 1.0 % 0-2 Nucleated Red Blood Cells % 0 Laboratory test finding 11/24/2017 Troponin-I (TnI) 0.01 ng/mL <0.04 Comp Metabolic Panel 11/24/2017 Sodium 129 mmol/L Low 139-145 Potassium 4.6 mmol/L 3.5-5.0 Chloride 99 mmol/L Low 101-111 Co2 Carbon Dioxide 20 mmol/L Low 22-32 Anion Gap 10 mmol/L 2-11 Glucose 214 mg/dL High 70-100 Blood Urea Nitrogen 32 mg/dL High 6-24 Creatinine 2.93 mg/dL High 0.51-0.95 BUN/Creatinine Ratio 10.9 8-20 Calcium 9.6 mg/dL 8.6-10.3 Total Protein 7.4 g/dL 6.4-8.9 Albumin 3.6 g/dL 3.2-5.2 Globulin 3.8 g/dL 2-4 Albumin/Globulin Ratio 0.9 Low 1-3 Total Bilirubin 0.30 mg/dL 0.2-1.0 Alkaline Phosphatase 132 U/L High 34-104 Alt 35 U/L 7-52 Ast 62 U/L High 13-39 Egfr Non- 16.0 >60 Egfr 20.6 >60 8 Order 11/24/2017 EKG <pending> Basic Metabolic Panel 11/19/2017 Sodium 134 mmol/L Low 139-145 Potassium 5.8 mmol/L High 3.5-5.0 Chloride 103 mmol/L 101-111 Co2 Carbon Dioxide 23 mmol/L 22-32 Anion Gap 8 mmol/L 2-11 Glucose 172 mg/dL High 70-100 Blood Urea Nitrogen 23 mg/dL 6-24 Creatinine 2.88 mg/dL High 0.51-0.95 BUN/Creatinine Ratio 8.0 8-20 Calcium 9.4 mg/dL 8.6-10.3 Egfr Non- 16.4 >60 Egfr 21.0 >60 9 Laboratory test finding 11/19/2017 Magnesium 2.0 mg/dL 1.9-2.7 CBC Auto Diff 11/19/2017 White Blood Count 10.1 10^3/uL 3.5-10.8 Red Blood Count 3.68 10^6/uL Low 4.0-5.4 Hemoglobin 10.1 g/dL Low 12.0-16.0 Hematocrit 30 % Low 35-47 Mean Corpuscular Volume 82 fL 80-97 Mean Corpuscular Hemoglobin 28 pg 27-31 Mean Corpuscular HGB Conc 34 g/dL 31-36 Red Cell Distribution Width 16 % High 10.5-15 Platelet Count 348 10^3/uL 150-450 Mean Platelet Volume 7.5 um3 7.4-10.4 Abs Neutrophils 7.9 10^3/uL High 1.5-7.7 Abs Lymphocytes 1.4 10^3/uL 1.0-4.8 Abs Monocytes 0.7 10^3/uL 0-0.8 Abs Eosinophils 0 10^3/uL 0-0.6 Abs Basophils 0.1 10^3/uL 0-0.2 Abs Nucleated RBC 0 10^3/uL Granulocyte % 78.0 % 38-83 Lymphocyte % 13.7 % Low 25-47 Monocyte % 7.3 % High 0-7 Eosinophil % 0.4 % 0-6 Basophil % 0.6 % 0-2 Nucleated Red Blood Cells % 0.1 Ua Routine 11/16/2017 Ua Specific [place] 1.010 Ua PH 5 Ua Color light yellow Ua Appera clear Ua WBC negative Ua Protein 500 Ua Glucose 100 Ua Ketones negative Ua Bilirubin negative Ua Urobilinogen normal Ua Nitrite negative Ua Occult Blood about 50 Laboratory test finding 10/12/2017 Hemoglobin A1c (Glyco HGB) 7.4 % High 4.0-5.6 10 Hepatitis C Rna Quant Undetected IU/mL Undetected 11 CBC Auto Diff 10/08/2017 White Blood Count [...] 06/03/2017 Hepatitis C Rna Undetected IU/mL Undetected 12 finding Quant Iron & Iron 04/20/2017 Iron 42 g/dL Low 50-212 Binding Capacity Unsaturated Iron Binding 302 g/dL Total Iron [...] Egfr Non- 25.4 >60 Egfr 32.7 >60 13 Lipid Profile (Trig/Chol/HDL) 04/20/2017 Triglycerides 184 mg/dL 14 Cholesterol 232 mg/dL 15 HDL Cholesterol 58.4 mg/dL 16 LDL Cholesterol 137 mg/dL 17 Liver Function Panel 04/20/2017 Direct Bilirubin 0.00 mg/dL Low 0.03-0.18 Laboratory test finding 04/20/2017 Uric Acid 6.7 mg/dL High 2.3-6.6 Phosphorus 5.0 mg/dL 2.5-5.0 Magnesium 2.3 mg/dL 1.9-2.7 Creatinine Clearance 04/20/2017 Urine Collection Time 24 Urine Total Volume 3500 mL Urine Random Creatinine 34.91 mg/dL Creatinine 1.96 mg/dL High 0.51-0.95 Creatinine Clearance 43 mL/min Low 88-128 Liver Fibrosis Panel Fibrosure 03/19/2017 Fibrosis Score 0.42 Fibrosis Stage F1-F2 Fibrosis Interpretation See Comment 18 Necroinflammat Activity Score 0.08 Necroinflammat Activity Grade A0 Necroinflammat Interpretation See Comment 19 Alpha 2 Macroglobulins, Qn 549 mg/dL 106-279 Haptoglobin 263 mg/dL 43-212 Apolipoprotein A-1 180 mg/dL 101-198 Bilirubin, Total 0.2 mg/dL 0.2-1.2 GGT 65 U/L 3-65 Alt (SGPT) 18 U/L 6-29 Reference Id [id number] Footnote See Comment 20 CBC Auto Diff 02/23/2017 White Blood Count [...] A1c 7.6 % High Less than 6.0 21 finding (Glyco HGB) HIV 1/2 AB 02/18/2017 HIV 1 2 Antibody Nonreactive Nonreactive 22 Evaluation Comp Metabolic Panel 02/18/2017 Sodium 132 [...] Egfr Non- 29.0 >60 Egfr 37.3 >60 23 CBC Auto Diff 01/26/2017 White Blood Count [...] Egfr Non- 25.2 >60 Egfr 32.3 >60 24 Creatinine Clearance 01/01/2017 Urine Collection Time 24 [...] Troponin-I (TnI) 0.04 ng/mL High < 0.04 25 Urinalysis Profile 12/17/2016 Urine Color Colorless Urine Appearance Clear Urine Specific [place] 1.008 Low 1.010-1.030 Urine pH 7.0 5-9 [...] And 12/17/2016 Urine Culture SEE RESULT BELOW 26 Sensitivities CBC Auto Diff 12/17/2016 White Blood [...] finding 12/17/2016 Troponin-I (TnI) 0.01 ng/mL <0.04 27 Comp Metabolic Panel 12/17/2016 Sodium 133 mmol/L [...] Egfr Non- 29.4 >60 Egfr 37.8 >60 28 Laboratory test finding 12/17/2016 Magnesium 2.2 mg/dL 1.9-2.7 TSH (Thyroid Stim Horm) 2.70 mcIU/mL 0.34-5.60 Lactic Acid 1.7 mmol/L 0.5-2.0 29 Inr/Protime 12/17/2016 Inr 0.87 Low 0.89-1.11 Laboratory test finding 12/17/2016 Partial Thrombo Time 32.8 seconds 26.0 -36.3 PTT Vitamin B12 710 pg/mL 180-914 30 Hemoglobin A1c (Glyco HGB) 8.8 % High Less than 6.0 31 Laboratory test finding 12/16/2016 Hemoglobin A1c 9.6 [...] Egfr Non- 31.4 >60 Egfr 40.4 >60 32 Iron & Iron Binding Capacity 11/27/2016 Iron 31 g/dL Low 50-212 Unsaturated Iron Binding 362 g/dL Total Iron Binding Capacity 393 g/dL 250-450 % Iron Saturation 8 % Low 15-55 Laboratory test finding 11/27/2016 Ferritin 106.9 ng/mL 11-307 Vitamin D Total 25(Oh) 27.1 ng/mL Low 30-50 Erythropoietin 10.1 mIU/mL 2.6 - 18.5 33 Laboratory test 11/03/2016 Point of Care 200 mg/dL High 74-106 34 finding Glucose Laboratory test 10/17/2016 Hepatitis B Surface Nonreactive Nonreactive finding Ag HCV Rna Genotype 1 10/17/2016 HCV NS5a Subtype 1b Ns5a Drug Resist HCV Daclatasvir Resistance NOT PREDICTED HCV Ledipasvir Resistance NOT PREDICTED Ombitasvir Resistance NOT PREDICTED HCV Elbasvir Resistance NOT PREDICTED HCV Velpatasvir Resistance NOT PREDICTED 35 Comp Metabolic Panel 09/19/2016 Sodium 138 mmol/L [...] Egfr Non- 31.4 >60 Egfr 40.4 >60 36 Laboratory test 09/19/2016 Hemoglobin A1c 8.1 % High Less than 6.0 37 finding (Glyco HGB) Urine Microalbumin 09/19/2016 Urine [...] Lipid Profile (Trig/Chol/HDL) 09/19/2016 Triglycerides 149 mg/dL 38 Cholesterol 244 mg/dL 39 HDL Cholesterol 62.1 mg/dL 40 LDL Cholesterol 152 mg/dL 41 Laboratory test finding 09/19/2016 Hepatitis A Antibody Positive Negative 42 Total Laboratory test finding 09/19/2016 Hepatitis C Genotype 1b Undetected 43 Liver Fibrosis Panel 09/19/2016 Fibrosis Score 0.44 Fibrosure Fibrosis Stage F1-F2 Fibrosis Interpretation See Comment 44 Necroinflammat Activity Score 0.06 Necroinflammat Activity Grade A0 Necroinflammat Interpretation See Comment 45 Alpha 2 Macroglobulins, Qn 556 mg/dL 106-279 46 Haptoglobin 300 mg/dL 43-212 Apolipoprotein A-1 202 mg/dL 101-198 Bilirubin, Total 0.3 mg/dL 0.2-1.2 GGT 81 U/L 3-65 Alt (SGPT) 15 U/L 6-29 Reference Id [id number] Footnote See Comment 47 Laboratory test finding 09/19/2016 Hepatitis C Rna Quant [id number] IU/mL Undetected 48 Hepatitis B [place] AB 09/19/2016 Hepatitis B Surface Nonreactive Nonreactive Titer AB Hep B Surf AB Level < 3.10 mIU/mL <12 49 1 Because ethnic data is not always readily [...] 15-29 5 Kidney failure <15 (or dialysis) 2 Because ethnic data is not always readily [...] 15-29 5 Kidney failure <15 (or dialysis) 3 Because ethnic data is not always readily [...] 15-29 5 Kidney failure <15 (or dialysis) 4 [facility] Severe Sepsis and Septic Shock Management Bundle Measure requires all lactic acids initially measuring >2.0 mmol/L be repeated. 5 Please note: The following may produce a false positive D Dimer test: - Rheumatoid factor greater than 60 IU/ml - Plasma hemoglobin greater than 0.05 gm/dl - Bilirubin greater than 50 mg/dl - Lipids greater than 1000 mg/dl - FDP greater than 20 ug/ml 6 Consumer Marketing Analyst: [id number] [facility] Severe Sepsis and Septic Shock Management Bundle Measure requires all lactic acids initially measuring >2.0 mmol/L be repeated. 8 Because ethnic data is not always [...] 5 Kidney failure <15 (or dialysis) 9 Because ethnic data is not always readily [...] 15-29 5 Kidney failure <15 (or dialysis) 10 Therapeutic target for the treatment of diabetes mellitus patients is <7% HBA1C, and in selective patients <6.0%. Please refer to [employer] diabetic care guidelines for further information. 11 Result in log IU/mL is Undetected. ADDITIONAL INFORMATION The quantification range of this assay is 15 to 100,000,000 IU/mL (1.18 log to 8.00 log IU/mL). Testing was performed using the irasema HCV test ([employer] with the irasema 6800 System. Test Performed by: [place] [address] 12 Result in log IU/mL is Undetected. ADDITIONAL INFORMATION The quantification range of this assay is 15 to 100,000,000 IU/mL (1.18 log to 8.00 log IU/mL). Testing was performed using the irasema HCV test ([employer] with the irasema 6800 System. Test Performed by: [place] [address] 13 Because ethnic data is not always readily [...] 15-29 5 Kidney failure <15 (or dialysis) 14 Desirable <150 Borderline high 150-199 High 200-499 Very High >500 15 Desirable <200 Borderline high 200-239 High >239 16 Low <40 Desirable: 40-60 High: >60 17 Desirable: <100 mg/dL Near Optimal: 100-129 mg/dL Borderline High: 130-159 mg/dL High: 160-189 mg/dL Very High: >189 mg/dL 18 minimal fibrosis Fibro Test Score Metavir Score 0.00-0.21 F0 no fibrosis 0.22-0.27 F0-F1 0.28-0.31 F1 minimal fibrosis 0.32-0.48 F1-F2 0.49-0.58 F2 moderate fibrosis 0.59-0.72 F3 advanced fibrosis 0.73-0.74 F3-F4 0.75-1.00 F4 severe fibrosis 19 no activity ActiTest Score Metavir Score 0.00-0.17 A0 no activity 0.18-0.29 A0-A1 0.30-0.36 A1 minimal activity 0.37-0.52 A1-A2 0.53-0.60 A2 significant activity 0.61-0.62 A2-A3 0.63-1.00 A3 severe activity 20 The reliability of results is dependent on compliance with the preanalytical and analytical conditions recommended by [employer]. The tests have to be deferred for: [...] The performance characteristics have been determined by [facility]. It has not been cleared or approved by the U.S. Food and Drug Administration. Performance characteristics refer to the analytical performance of the test. [employer], the associated logo, [employer] and all associated [employer] levy are the registered trademarks of [employer]. All third green party levy - (R) and (TM) - are the property of their respective owners. (C) [id number] [employer]. All rights reserved. Test Performed by: [employer] [address] [place] [address] 21 Therapeutic target for the treatment of diabetes Mellitus patients is <7% HBA1C, and in selective patients <6.0%.Please refer to [employer] Diabetic care guidelines for further information. 22 It is recognized that currently available assays [...] 95% confidence interval of 99.78 to 99.96%. 23 Because ethnic data is not always [...] 5 Kidney failure <15 (or dialysis) 24 Because ethnic data is not always readily [...] 15-29 5 Kidney failure <15 (or dialysis) 25 Result TnIDx:0.04 Called to [id number] at: 09:01:43 by: Read back by: [id number] 99th percentile=0.04 ng/mL Troponin results at [facility] and [facility] are not interchangeable. 26 SEE RESULT BELOW Name: KRISTAL MOREIRA : [address]: Sherry Daniel DO Acct: [id number] Unit: [id number] AGE: 66 Location: [place] [address] Re12/17/16 Dis: 12/18/16 SEX: F Status: DIS Esthela SPEC: [id number] VINNIE: 12/17/[address]: Faye ANNA REQ: [id number] RECD: 12/17/16 STATUS: FILIBERTO MOMIN DR: Tyron Jones MD _ SOURCE: URINE SPDESC: ORDERED: Urine Culture Procedure Result Reported Site Urine Culture Final 12/18/16- 1446 ML Organism 1 STREP GROUP B [place] Count 10-25,000 (Moderate) CFU/ML Susceptibility testing of penicillins and other B-lactams approved by FDA for treatment of Streptococcus pyogenes (Group A Strep) and Streptococcus agalactiae (Group B Strep) is not necessary for clinical purposes and need not be done routinely, since as with vancomycin, resistant strains have not been recognized. (CLSI I154-M64;p.66) Positive isolates will be saved for one week. Please call the Microbiology Laboratory if further susceptibility testing is needed. * ML - MAIN LAB ([facility]) . END OF REPORT * ML=Testing performed at Main Lab DEPARTMENT OF PATHOLOGY, [address] [place] [address] Delmar Cannon M.D. Director [facility] # [id number] 27 99th percentile=0.04 ng/mL Troponin results at [facility] and [facility] are not interchangeable. 28 Because ethnic data is not always readily [...] 15-29 5 Kidney failure <15 (or dialysis) 29 [facility] Severe Sepsis and Septic Shock Management Bundle Measure requires all lactic acids initially measuring >2.0 mmol/L be repeated. 30 Normal Range 180 to 914 Indeterminate Range 145 to 180 Deficient Range <145 31 Therapeutic target for the treatment of diabetes Mellitus patients is <7% HBA1C, and in selective patients <6.0%.Please refer to [place] [employer] Diabetic care guidelines for further information. 32 Because ethnic data is not always readily [...] 15-29 5 Kidney failure <15 (or dialysis) 33 Test Performed by: [address] [id number] 34 Consumer Marketing Analyst: [id number] FABIOLA JG 35 Mutations Detected: Q54Q/H,A92T/A This assay is designed [...] http://hcvguidelines.org. For additional information, please refer to http://[employer].WorkMeIn/faq/WHK531 This test was developed and its analytical Performance characteristics have been determined by [email or web address]. It has not been cleared or approved by the FDA. This assay has been validated pursuant to the CLIA regulations and is used for clinical purposes. Test Performed by: [employer] [address] [place] [address] 36 Because ethnic data is not always readily [...] 15-29 5 Kidney failure <15 (or dialysis) 37 Therapeutic target for the treatment of diabetes Mellitus patients is <7% HBA1C, and in selective patients <6.0%.Please refer to [employer] Diabetic care guidelines for further information. 38 Desirable <150 Borderline high 150-199 High 200-499 Very High >500 39 Desirable <200 Borderline high 200-239 High >239 40 Low <40 Desirable: 40-60 High: >60 41 Desirable: <100 mg/dL Near Optimal: 100-129 mg/dL Borderline High: 130-159 mg/dL High: 160-189 mg/dL Very High: >189 mg/dL 42 Test Performed by: [place] [address] Surgical Physician Assistant: Manas Ribeiro II, M.D., Ph.D. 43 ADDITIONAL INFORMATION This test was performed using the Lindsey RealTime HCV Genotype II assay ([employer] [place], [place]). Test Performed by: [place] [address] Surgical Physician Assistant: Manas Ribeiro II, M.D., Ph.D. 44 minimal fibrosis Fibro Test Score Metavir Score 0.00-0.21 F0 no fibrosis 0.22-0.27 F0-F1 0.28-0.31 F1 minimal fibrosis 0.32-0.48 F1-F2 0.49-0.58 F2 moderate fibrosis 0.59-0.72 F3 advanced fibrosis 0.73-0.74 F3-F4 0.75-1.00 F4 severe fibrosis 45 no activity ActiTest Score Metavir Score 0.00-0.17 A0 no activity 0.18-0.29 A0-A1 0.30-0.36 A1 minimal activity 0.37-0.52 A1-A2 0.53-0.60 A2 significant activity 0.61-0.62 A2-A3 0.63-1.00 A3 severe activity 46 Unusual deviation with median value. 47 The reliability of results is dependent on compliance with the preanalytical and analytical conditions recommended by [employer]. The tests have to be deferred for: [...] The performance characteristics have been determined by [facility]. It has not been cleared or approved by the U.S. Food and Drug Administration. Performance characteristics refer to the analytical performance of the test. [employer], the associated logo, [employer] and all associated [employer] levy are the registered trademarks of [employer]. All third green party levy - (R) and (TM) - are the property of their respective owners. (C) [id number] FIRE1. All rights reserved. Test Performed by: [employer] [address] [place] [id number] 48 Result in log IU/mL is 5.91. ADDITIONAL INFORMATION The quantification range of this assay is 15 to 100,000,000 IU/mL (1.18 log to 8.00 log IU/mL). Testing was performed by the [employer] AmpliPrep/IRASEMA TaqMan HCV Test, version 2.0 ([employer] Test Performed by: [place] [address] Surgical Physician Assistant: Manas Ribeiro II, M.D., Ph.D. 49 This assay does not differentiate between reactivity due to a vaccine-induced immune response or an immune response induced by infection with HBV. Procedures Date CPT Code Description Status 11/27/2017 37318 Treadmill Interp/Report Only Completed 11/27/2017 40953 Stress Test Supervsn W/Out I/R Completed 11/24/2017 67626 EKG Tracing & Interpretation Completed 11/19/2017 36985 EKG Tracing & Interpretation Completed 11/03/2017 95109 EKG Tracing & Interpretation Completed 10/13/2017 Mammogram Completed 01/14/2017 98609 ECHO Transthoracic, Real-Time 2D With Doppler And Color Completed Flow 01/07/2017 16416 Holter Monitor Review (24 hr)dr meade & interp Completed only 01/06/2017 37037 ECG Monitor/Recording W/Visual Superimposition Scanning Completed 01/02/2017 48496 EKG Tracing & Interpretation Completed 12/18/2016 46095 Stress Test Supervsn W/Out I/R Completed 12/18/2016 46878 Treadmill Interp/Report Only Completed 12/17/2016 71064 EKG, Interpretation Only Completed 12/16/2016 48793 EKG Tracing & Interpretation Completed 11/13/2016 06836 Inject Tendon Sheath Or Ligament Aponeurosis Eg Plantar Completed Fascia 10/16/2016 Diabetic Retinal Eye Exam Completed 10/03/2016 Mammogram Completed 03/12/2016 Colonoscopy Completed 05/08/2015 Mammogram Completed 09/30/2013 Mammogram Completed Encounters Type Date Location Provider CPT E/M Dx Office Visit 11/30/2017 [facility], Abe Barfield, 8[address]64 R07.9 1:33p Hospitalists MYahir E11.22 I10 Office Visit 11/29/2017 1:32p [facility], Aydee Pal, 12471 R07.9 Hospitalists MYahir E11.22 I10 K92.2 Office Visit 11/28/2017 1:31p [facility], Aydee Pal, 92763 R07.9 Hospitalists MYahir E11.22 N18.3 I10 Office Visit 11/27/2017 1:31p [facility], Aydee Pal, 59383 R07.9 Hospitalists MYahir E11.22 N18.3 I10 Office Visit 11/26/2017 1:30p [facility], Aydee Pal, 26756 R07.9 Hospitalists MYahir E11.22 N18.3 Z79.4 Office Visit 11/25/2017 1:27p [facility], Abe Barfield, 42844 I16.0 Hospitalists M.D. N18.4 E08.42 Z79.4 Office Visit 11/24/2017 1:26p [facility], Abe Barfield, 56417 I16.0 Hospitalists M.D. N18.4 E08.42 Z79.4 Office Visit 11/24/2017 4:20p [facility] Sreedhar SQuita Mooney, 330[address] I10 M.D. I34.0 R00.0 E78.5 Office Visit 11/19/2017 3:30p [facility] Ivania Jones, N.P. 06244 I10 I49.3 I34.0 E78.5 R42 Office Visit 11/16/2017 2:40p [facility] Cathy Taylor, MARK [address] E11.[address] - [address] N39.0 R82.99 Office Visit 11/10/2017 2:00p [facility] [address] I10 Office Visit 11/06/2017 3:30p [facility] Ivania Jones, [address]51[address] I10 N.P. I49.3 Office Visit 11/03/2017 4:20p [facility] Liliryan S. Vinicio, 79895 I10 M.D. I49.3 I34.0 E78.5 R94.31 Office Visit 10/12/2017 1:20p [facility] Miriam Carey, 67106 B18.2 Infectious Diseases M.D. K74.0 E11.69 E11.9 Office Visit 06/22/2017 2:10p [facility] Tyron Garcia, [address]17 D50.0 - [address] MYahir,FACP E11.42 Office Visit 06/11/2017 2:00p [facility] Miriam Carey, 14177 N18.3 Infectious Diseases M.D. Z23 K74.0 B18.2 Office Visit 04/20/2017 2:00p [facility] Tyron Garcia, [address]144 N18.3 - [address] MYahir,FACP D50.0 E11.42 Z23 Office Visit 03/19/2017 1:20p [facility] Jhonatan Carey, 91105 B18.2 Infectious Diseases Salome Office Visit 02/16/2017 4:00p [facility] Tyron Garcia, [address]457 E11.42 - [address] M.DQuita,FACP Z11.4 N18.3 D50.0 Office Visit 01/16/2017 4:40p [facility] S. amina, 84985 I49.3 M.DQuita I10 E11.42 N18.3 D63.1 Z01.810 I49.1 M17.11 I34.0 Office Visit 01/05/2017 2:00p [facility] Medicine Tyron Garcia, [address]99 N18.3 - [address] M.Chloé,FACP E11.42 D63.1 Office Visit 01/02/2017 2:40p [facility] S. amina, 02329 I10 M.DQuita E11.42 R94.31 I49.3 Z01.810 M17.11 Office Visit 12/22/2016 1:00p [facility] Medicine - Ezekiel Sparks, [place] [address] K62.5 I10 E11.42 Office Visit 12/17/2016 2:33p [facility],lance Daniel, 75053 R00.2 Hospitalists Salome R74.8 I16.1 E11.42 Office Visit 12/16/2016 3:00p [facility] Internal Medicine - Ezekiel Sparks, MARK [address] M25.561 M17.11 M25.461 E11.40 I10 D50.8 E78.1 Z85.3 Z72.0 G47.00 D63.1 B18.2 Office Visit 11/17/2016 1:20p [facility] Jhonatan Luevano 91120 B18.2 Infectious Diseases Salome Carey Office Visit 11/14/2016 3:30p [facility] Lisa Jarvis M.D. 21935 M25.561 Of C.M.AQuita M17.11 M25.461 Office Visit 11/13/2016 1:30p [facility] Mariana Javier, 80218 M65.332 Of Ezio Mcmahon Office Visit 10/30/2016 2:40p [facility] Ezekiel Sparks, MARK [address]862 Z01.818 - [address] H26.9 E11.40 I10 B18.2 D50.8 E78.1 Z85.3 Z72.0 M65.332 Office Visit 10/17/2016 8:50a [facility] Jhonatan Carey, 03963 B18.2 Infectious Diseases Salome Office Visit 10/08/2016 1:00p [facility] Ezekiel Sparks, MARK [address]53 E11.40 - [address] I10 Z86.010 B18.2 M25.562 Office Visit 09/19/2016 8:20a [facility] Internal Medicine - Ezekiel Sparks, MARK [address] I10 D50.8 B18.2 G47.00 E78.1 Z72.0 Z86.010 Z85.3 Plan of Care Future Appointment(s):02/17/2018 4:00 pm - Tyron Garcia M.D.,FACP at [facility] Internal Medicine - [address]12/11/2017 - Tyron Garcia M.D.,FACPI12.9 Hypertensive chronic kidney disease w stg 1-4/unsp chr kdnyNew Labs:Basic Metabolic PanelMagnesiumComments:Important to follow low-potassium diet, and see Dr. Becker as planned. Medication list reconciled with 11/30 hospital discharge.E11.22 Type 2 diabetes mellitus w diabetic chronic kidney diseaseNew Labs:Hemoglobin A1c (Glyco HGB)Comments:You are meeting goal for blood sugar control. Changes to medications are indicated. Stop metformin due to advancing renal insufficiency. A yearly nutrition visit is available to all diabetics. You are on a moderate-potency statin to prevent new or recurrent heart disease, which is common in diabetics.Recommendations:See your senior application security consultant every year. It is OK to go every 2 years if he finds no retinal damage from diabetes. Ask your senior application security consultant to communicate his/her findings to us. See a it risk and assurance senior manager every 6months if you have numbness in your feet or a history of foot ulcers.Goals:Goal Hemoglobin A1c is less than 7.0% in ages 18-74 Goal Hemoglobin A1c is between 7.0% and 8.0% in age over 75 Goal Blood pressure is less than 130/85. Cholesterol should be lowered by a high or moderate-dose statin.D50.8 Other iron deficiency anemiasNew Labs:CBC Auto DiffIron & Iron Binding CapacityComments:Continue iron orally, and have Aranesp injections with Dr. Becker monthly.I will call Dr. Prakash repossible colonoscopy/ endoscopyFollow up:ask Dr. Prakash to call me
--- OUTSIDE RECORDS SUMMARY | 2018-01-06 01:36 | XMS REPORT ---
:1950 External Reference #:[id number] Author Organization [facility] [employer] Address [address] [facility] [address] [place] [address] Phone [phone] Care Team Providers Name Role Phone Tyron Garcia MD Primary Care Physician Unavailable Payers Type Date Identification Numbers Payment Provider Subscriber Medicare Primary Policy Number: [id number] Medicare Kristal Moreira PayID: [id number] [facility] [address] [place] [address] Commercial Effective: 2016 Policy Number: Belia Care Kristal [facility] [id number] Expires: 2017 Group Number: 90% [facility] [id number] [address] Advance Directives Type Date Description Status Comment Other Directive 04/20/2017 [facility] Care Proxy Current and Verified Problems [...] Sparks NP Active neoplasm of breast Note: [id number] 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 [place], 100-150, 7 M.D.,FACP units SC if FS [...] s twice a day Taylor, as needed SELF PROPELLED HOT MIX ROLLER OPERATOR K62.5 Clonidine HCL Active Tablets 0.2mg 90tabs 1 by mouth I10 Tyron Luevano three times [place], a day M.D.,FACP Lorazepam Active Tablets 0.5mg 60tabs 1 tab twice G47.00 Tyron Leuvano a day as [place], needed, mdd M.D.,FACP 2 F41.9 Acetaminophen ER [...] CPT Code Status Date Vaccine Lot # [id number] Given 06/11/2017 Influenza Virus Vaccine, Quadrivalent, Split, [id number] Preservative Free 32922 Given 04/20/2017 Pneumococcal Conjugate Vaccine 13 Valent For [id number] Intramuscular Use Vital Signs Date Vital Result [...] % 0.1 Ua Routine 11/16/2017 Ua Specific [place] 1.010 Ua PH 5 Ua Color light [...] Alt (SGPT) 18 U/L 6-29 Reference Id [id number] Footnote See Comment 20 CBC Auto Diff [...] Color Colorless Urine Appearance Clear Urine Specific [place] 1.008 Low 1.010-1.030 Urine pH 7.0 5-9 [...] Alt (SGPT) 15 U/L 6-29 Reference Id [id number] Footnote See Comment 47 Laboratory test finding 09/19/2016 Hepatitis C Rna Quant 610113 IU/mL Undetected 48 Hepatitis B [place] AB [...] 5 Kidney failure <15 (or dialysis) 4 RIS Severe Sepsis and Septic Shock Management Bundle [...] - FDP greater than 20 ug/ml 6 Senior Housekeeper: [id number] [facility] Severe Sepsis and Septic Shock Management [...] in selective patients <6.0%. Please refer to [place] [employer] Association diabetic care guidelines for further information. 11 Result in log IU/mL is Undetected. ADDITIONAL INFORMATION The quantification range of this assay is 15 to 100,000,000 IU/mL (1.18 log to 8.00 log IU/mL). Testing was performed using the irasema HCV test ([employer] with the irasema 6800 System. Test Performed by: [facility] [place] [address] 12 Result in log IU/mL is Undetected. ADDITIONAL INFORMATION The quantification range of this assay is 15 to 100,000,000 IU/mL (1.18 log to 8.00 log IU/mL). Testing was performed using the irasema HCV test ([employer] with the irasema 6800 System. Test Performed by: [place] [address] 13 Because ethnic data is not always [...] the preanalytical and analytical conditions recommended by [employer]. The tests have to be deferred for: [...] The performance characteristics have been determined by [facility]. It has not been cleared or approved by the U.S. Food and Drug Administration. Performance characteristics refer to the analytical performance of the test. JumpIn, the associated logo, [employer] and all associated [employer] levy are the registered trademarks of [employer]. All third libertarian levy - (R) and (TM) - are the property of their respective owners. (C) 8136-4636 [employer]. All rights reserved. Test Performed by: [employer] [address] [place] [address] 21 Therapeutic target for the treatment of diabetes Mellitus patients is <7% HBA1C, and in selective patients <6.0%.Please refer to [place] [employer] Association Diabetic care guidelines for further [...] (or dialysis) 25 Result TnIDx:0.04 Called to [id number] at: 09:01:43 by: Read back by: [id number] 99th percentile=0.04 ng/mL Troponin results at [facility] and [facility] are not interchangeable. 26 SEE RESULT BELOW Name: KRISTAL MOREIRA : [address]: Sherry Daniel DO Acct: [id number] Unit: [id number] AGE: 66 Location: [place] [address] Re12/17/16 Dis: 12/18/16 SEX: F Status: DIS Esthela SPEC: [id number] VINNIE: 12/17/[address]: Faye ANNA REQ: [id number] RECD: 12/17/16 STATUS: FILIBERTO MOMIN DR: Tyron Jones MD _ SOURCE: URINE SPDESC: ORDERED: Urine Culture Procedure Result Reported Site Urine Culture Final 12/18/16- 1446 ML Organism 1 STREP GROUP B [place] Count 10-25,000 (Moderate) CFU/ML Susceptibility testing of penicillins and other B-lactams approved by FDA for treatment of Streptococcus pyogenes (Group A Strep) and Streptococcus agalactiae (Group B Strep) is not necessary for clinical purposes and need not be done routinely, since as with vancomycin, resistant strains have not been recognized. (CLSI M471-Y00;p.66) Positive isolates will be saved for one week. Please call the Microbiology Laboratory if further susceptibility testing is needed. * ML - MAIN LAB ([facility]) . END OF REPORT * ML=Testing performed at Main Lab DEPARTMENT OF PATHOLOGY, [address] [place] [address] Delmar Cannon M.D. Director [facility] # [id number] 27 99th percentile=0.04 ng/mL Troponin results at [facility] and [facility] are not interchangeable. 28 Because ethnic [...] 5 Kidney failure <15 (or dialysis) 29 [facility] Severe Sepsis and Septic Shock Management Bundle Measure requires all lactic acids initially measuring >2.0 mmol/L be repeated. 30 Normal Range 180 to 914 Indeterminate Range 145 to 180 Deficient Range <145 31 Therapeutic target for the treatment of diabetes Mellitus patients is <7% HBA1C, and in selective patients <6.0%.Please refer to [place] Diabetes Association Diabetic care guidelines for further [...] <15 (or dialysis) 33 Test Performed by: [address] [address] 34 Senior Housekeeper: [id number] FABIOLA JG 35 Mutations Detected: Q54Q/H,A92T/A This [...] http://hcvguidelines.org. For additional information, please refer to [email or web address] This test was developed and its analytical Performance characteristics have been determined by [employer]. It has not been cleared or approved by the FDA. This assay has been validated pursuant to the CLIA regulations and is used for clinical purposes. Test Performed by: [employer]. [address] [place] [address] 36 Because ethnic data is not always [...] and in selective patients <6.0%.Please refer to [place] Diabetes Association Diabetic care guidelines for further information. 38 Desirable <150 Borderline high 150-199 High 200-499 Very High >500 39 Desirable <200 Borderline high 200-239 High >239 40 Low <40 Desirable: 40-60 High: >60 41 Desirable: <100 mg/dL Near Optimal: 100-129 mg/dL Borderline High: 130-159 mg/dL High: 160-189 mg/dL Very High: >189 mg/dL 42 Test Performed by: [facility] [place] [address] Learning Disabilities Specialist: Manas Ribeiro II, M.D., Ph.D. 43 ADDITIONAL INFORMATION This test was performed using the Lindsey RealTime HCV Genotype II assay ([employer] [place], [place]). Test Performed by: [place] [address] Learning Disabilities Specialist: Manas Ribeiro II, M.D., Ph.D. 44 minimal [...] the preanalytical and analytical conditions recommended by [employer]. The tests have to be deferred for: [...] The performance characteristics have been determined by [facility]. It has not been cleared or approved by the U.S. Food and Drug Administration. Performance characteristics refer to the analytical performance of the test. JumpIn, the associated logo, [employer] and all associated [employer] levy are the registered trademarks of [employer]. All third libertarian levy - (R) and (TM) - are the property of their respective owners. (C) 2064-8529 [employer]. All rights reserved. Test Performed by: [employer] [address] [place] [address] 48 Result in log IU/mL is 5.91. ADDITIONAL INFORMATION The quantification range of this assay is 15 to 100,000,000 IU/mL (1.18 log to 8.00 log IU/mL). Testing was performed by the IRASEMA AmpliPrep/IRASEMA TaqMan HCV Test, version 2.0 ([employer] Test Performed by: [place] [address] Learning Disabilities Specialist: Manas Ribeiro II, M.D., Ph.D. 49 This assay does not differentiate between reactivity due to a vaccine-induced immune response or an immune response induced by infection with HBV. Procedures Date CPT Code Description Status 11/24/2017 30620 EKG Tracing & Interpretation Completed 11/19/2017 37726 EKG Tracing & Interpretation Completed 11/03/2017 62600 EKG Tracing & Interpretation Completed 10/13/2017 Mammogram Completed 01/14/2017 82658 ECHO Transthoracic, Real-Time 2D With Doppler And Color Completed Flow 01/07/2017 12505 Holter Monitor Review (24 hr)dr meade & interp Completed only 01/06/2017 07804 ECG Monitor/Recording W/Visual Superimposition Scanning Completed 01/02/2017 09868 EKG Tracing & Interpretation Completed 12/18/2016 56024 Treadmill Interp/Report Only Completed 12/18/2016 94675 Stress Test Supervsn W/Out I/R Completed 12/17/2016 64904 EKG, Interpretation Only Completed 12/16/2016 40075 EKG Tracing & Interpretation Completed 11/13/2016 73023 Inject Tendon Sheath Or Ligament Aponeurosis Eg Plantar Completed Fascia 10/16/2016 Diabetic Retinal Eye Exam Completed 10/03/2016 Mammogram Completed 03/12/2016 Colonoscopy Completed 05/08/2015 Mammogram Completed 09/30/2013 Mammogram Completed Encounters Type Date Location Provider CPT E/M Dx Office Visit 12/11/2017 4:00p [facility] Tyron Garcia, [address]12[address] Salome,FACP E11.22 D50.8 Office Visit 11/30/2017 1:33p [facility],lance Barfield, 87158 R07.9 Hospitalists MYahir E11.22 I10 Office Visit 11/29/2017 1:32p [facility], Aydee Pal, 28194 R07.9 Hospitalists MYahir E11.22 I10 K92.2 Office Visit 11/28/2017 [facility] Aydee Pal, [address]284 R07.9 Hospitalists MYahir E11.22 N18.3 I10 Office Visit 11/27/2017 1[facility] Aydee Pal, [address] R07.9 Hospitalists MYahir E11.22 N18.3 I10 Office Visit 11/26/2017 1:30p [facility], Aydee Pal, 21904 R07.9 Hospitalists Salome E11.22 N18.3 Z79.4 Office Visit 11/25/2017 1:27p [facility],lance Barfield, 30133 I16.0 Hospitalists M.D. N18.4 E08.42 Z79.4 Office Visit 11/24/2017 1:26p [facility], Abebranden Barfield, [address]76 I16.0 Hospitalists M.D. N18.4 E08.42 Z79.4 Office Visit 11/24/2017 4:20p [facility] Sreedhar Mooney, 88825 I10 M.D. I34.0 R00.0 E78.5 Office Visit 11/19/2017 3:30p [facility] Ivania Jones, N.P. 54875 I10 I49.3 I34.0 E78.5 R42 Office Visit 11/16/2017 2:40p [facility] Cathy Taylor, MARK [address] E11.[address] N39.0 R82.99 Office Visit 11/10/2017 2:00p [facility] [place] [address] I10 Office Visit 11/06/2017 3:30p [facility] Ivania Jones, 87804 I10 N.P. I49.3 Office Visit 11/03/2017 4:20p [facility] Sreedhar SQuita Mooney, 84236 I10 M.D. I49.3 I34.0 E78.5 R94.31 Office Visit 10/12/2017 1:20p [facility] Jhonatan Carey, 17557 B18.2 Infectious Diseases M.Chloé K74.0 E11.69 E11.9 Office Visit 06/22/2017 2:10p [facility] Tyron Garcia, 81429 D50.0 - [address]ir Mcmahon,FACP E11.42 Office Visit 06/11/2017 2:00p [facility] Miriam Carey, 53727 N18.3 Infectious Diseases M.DQuita Z23 K74.0 B18.2 Office Visit 04/20/2017 2:00p [facility] Tyron Garcia, 53536 N18.3 - [address] Nasir Mcmahon,FACP D50.0 E11.42 Z23 Office Visit 03/19/2017 1:20p [facility] Jhonatan Carey, 08064 B18.2 Infectious Diseases Salome Office Visit 02/16/2017 4:00p [facility] Tyron Garcia, [address]1200 E11.42 - [address] M.DQuita,FACP Z11.4 N18.3 D50.0 Office Visit 01/16/2017 4:40p [facility] S. Robbie, 78097 I49.3 M.D. I10 E11.42 N18.3 D63.1 Z01.810 I49.1 M17.11 I34.0 Office Visit 01/05/2017 2:00p [facility] Tyron Garcia, [address]9429 N18.[address] - [address] M.DQuita,FACP E11.42 D63.1 Office Visit 01/02/2017 2:40p [facility] S. Robbie, 46110 I10 M.DQuita E11.42 R94.31 I49.3 Z01.810 M17.11 Office Visit 12/22/2016 1:00p [facility] - Ezekiel Sparks, MARK [address] K62.5 I10 E11.42 Office Visit 12/17/2016 2:33p [facility], Sherry Daniel, [address]6021 R00.2 Hospitalists MYahir R74.8 I16.1 E11.42 Office Visit 12/16/2016 3:00p [facility] [place] [address] M25.561 M17.11 M25.461 E11.40 I10 D50.8 E78.1 Z85.3 Z72.0 G47.00 D63.1 B18.2 Office Visit 11/17/2016 1:20p [facility] Miriam Luevano [address]2888 B18.2 Infectious Diseases Salome Carey Office Visit 11/14/2016 3:30p [facility] Lisa Jarvis M.D. 56320 M25.561 Of C.M.AQuita M17.11 M25.461 Office Visit 11/13/2016 1:30p [facility] Mariana Javier, 84887 M65.332 Of Ezio Mcmahon Office Visit 10/30/2016 2:40p [facility] Ezekiel Sparks, MARK [address] Z01.[address] - [address] H26.9 E11.40 I10 B18.2 D50.8 E78.1 Z85.3 Z72.0 M65.332 Office Visit 10/17/2016 8:50a [facility] Jhonatan Carey, 05009 B18.2 Infectious Diseases M.Gabriela. Office Visit 10/08/2016 1:00p [facility] Ezekiel Sparks, MARK [address] E11.40 - [address] I10 Z86.010 B18.2 M25.562 Office Visit 09/19/2016 8:20a [facility] [place] [address] I10 D50.8 B18.2 G47.00 E78.1 Z72.0 Z86.010 Z85.3 Plan of Care Future Appointment(s):02/17/2018 4:00 pm - Tyron Garcia M.D.,FACP at [facility] - [address]/11/2017 - Tyron [...] disease, which is common in diabetics.Recommendations:See your nougat cutter machine every year. It is OK to go every 2 years if he finds no retinal damage from diabetes. Ask your nougat cutter machine to communicate his/her findings to us. See a latin american studies director every 6months if you have numbness in [...]
[2018-01-06] MEDS ORDERED: amLODIPine TAB* 5 MG PO ONE (02:33)
[2018-01-06 02:46] LABS: ABS Basophils 0.1 10^3/ul (0-0.2); ABS Eosinophils 0.1 10^3/ul (0-0.6); ABS Lymphocytes 1.2 10^3/ul (1.0-4.8); ABS Monocytes 0.7 10^3/ul (0-0.8); ABS Neutrophils 5.1 10^3/ul (1.5-7.7); ABS Nucleated RBC 0 10^3/ul; Hematocrit 24 % (35-47); Hemoglobin 7.9 g/dl (12.0-16.0); Lymphocyte % 16.6 % (25-47); Mean Corpuscular HGB Conc 34 g/dl (31-36); Mean Corpuscular Hemoglobin 28 pg (27-31); Mean Corpuscular Volume 83 fL (80-97); Mean Platelet Volume 7.3 um3 (7.4-10.4); Nucleated Red Blood Cells % 0.1; Platelet Count 328 10^3/ul (150-450); Red Blood Count 2.83 10^6/ul (4.0-5.4); Red Cell Distribution Width 17 % (10.5-15)
[2018-01-06 03:03] LABS: EGFR Non-African American 13.1 (>60)
[2018-01-06 03:17] LABS: Urine Appearance Clear; Urine Blood Negative (Negative); Urine Color Straw; Urine Ketones Negative (Negative); Urine Protein 2+(100 mg/dL) (Negative); Urine Specific Gravity 1.003 (1.010-1.030); Urine Urobilinogen Negative (Negative)
[2018-01-06 04:06] VITALS: BP 164/73
--- NOTE | 2018-01-06 05:13 | ED ---
Medhat Fernandez Sixian, scribed for Haroldo Leiva MD on 01/06/18 at 0158 . Hypertension - HPI Summary HPI Summary: This patient is a 67 year old F BIBA to ED with a chief complaint of high blood pressure since 1500 today. The patient rates the pain 8/10 in severity. Symptoms aggravated and alleviated by nothing. Patient reports headache, ringing in ears, tingling sensations, dizziness, trouble urinating. Patient denies chest pain, abdominal pain. Her PCP told her she will need dialysis soon for kidney disease. - History of Current Complaint Chief Complaint: EDHypertension Stated Complaint: HIGH BP Hx Obtained From: Patient Onset/Duration: Started Hours Ago, Still Present Timing: Lasting Hours Aggravating Factor(s): Nothing Alleviating Factor(s): Nothing Associated Signs & Symptoms: Other: - Patient reports headache, ringing in ears , tingling sensations, dizziness, trouble urinating. Patient denies chest pain, abdominal pain. - Allergies/Home Medications Allergies/Adverse Reactions: Allergies Allergy/AdvReac Type Severity Reaction Status Date / Time diltiazem Allergy Palpitation Verified 01/06/18 01:00 s enalapril Allergy Swelling Verified 01/06/18 01:00 Of Face,Lips,& Throat hydralazine Allergy Palpitation Verified 01/06/18 01:00 s verapamil Allergy Palpitation Verified 01/06/18 01:00 s PMH/Surg Hx/FS Hx/Imm Hx Endocrine/Hematology History: Reports: Hx Diabetes, Hx Anemia Denies: Hx Anticoagulant Therapy, Hx Blood Disorders, Hx Thyroid Disease, Hx Unexplained Bleeding Cardiovascular History: Reports: Hx Cardiomegaly - slightly enlarged per md, Hx Hypercholesterolemia, Hx Hypertension, Other Cardiovascular Problems/Disorders - DIABETIC Denies: Hx Angina, Hx Atrial Fibrillation, Hx Coronary Artery Disease, Hx Myocardial Infarction, Hx Pacemaker/ICD, Hx Syncope, Hx Valvular Heart Disease Respiratory History: Denies: Hx Asthma, Hx Chronic Obstructive Pulmonary Disease (COPD) GI History: Reports: Hx Gastroesophageal Reflux Disease, Hx Gastrointestinal Bleed, Hx Irritable Bowel, 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 History: Reports: Hx Chronic Renal Failure Musculoskeletal History: Reports: Hx Orthopedic Injury - Left knee Denies: Hx Arthritis, Hx Osteoporosis Sensory History: Reports: Hx Cataracts, Hx Contacts or Glasses Denies: Hx Hearing Aid Opthamlomology History: Reports: Hx Cataracts, Hx Contacts or Glasses Neurological History: Reports: Hx Headaches Psychiatric History: Reports: Hx Anxiety - Cancer History Cancer Type, Location and Year: Breast CA Hx Chemotherapy: No - radiation Hx Radiation Therapy: Yes - Surgical History Surgery Procedure, Year, and Place: left knee replacement 2013 [facility]. lumpectomy under right arm 2015. AVM repair 02/2016. right cataract surgery with lens implant 02/2016. right wrist surgery - carpal tunnel 1999. tubal ligation 1977 in [place]. repair of incision from tubal surgery Hx Anesthesia Reactions: No Infectious Disease History: No Infectious Disease History: Reports: Hx Hepatitis Denies: Hx of Known/Suspected MRSA, Traveled Outside the [place] in Last 30 Days - Family History Known Family History: Positive: Cardiac Disease, Diabetes - Social History Alcohol Use: None Hx Substance Use: No Substance Use Type: Reports: None Hx Tobacco Use: Yes Smoking Status (MU): Former Smoker Amount Used/How Often: 1/2 ppd Length of Time of Smoking/Using Tobacco: Quit 11/28/2016 Have You Smoked in the Last Year: Yes Review of Systems ENT: Other - ringing in ears Negative: Chest Pain Negative: Abdominal Pain Genitourinary: Other - trouble urinating Musculoskeletal: Other - tingling Neurological: Other - dizziness Positive: Headache All Other Systems Reviewed And Are Negative: Yes Physical Exam - Summary Physical Exam Summary: Appearance: Well-appearing, Well-nourished, lying in bed comfortably Skin: Warm, dry, no obvious rash Eyes: sclera anicteric, conjunctiva pallor ENT: mucous membranes moist, pharynx appears normal Neck: Supple, nontender Respiratory: Clear to auscultation, no signs of respiratory distress Cardiovascular: Normal S1, S2. No murmurs. Normal distal pulses in tibial and radial bilaterally. Abdomen: Soft, nontender, normal active bowel sounds present Musculoskeletal: Normal, Strength/ROM Intact, pedal edema Neurological: A&Ox3, awake and alert, mentation is normal, speech is fluent and appropriate Psychiatric: affect is normal, does not appear anxious or depressed Triage Information Reviewed: Yes Vital Signs On Initial Exam: Initial Vitals Temp Pulse Resp BP Pulse Ox 98 F 79 17 209/89 99 01/06/18 01:16 01/06/18 01:16 01/06/18 01:16 01/06/18 01:16 01/06/18 01:16 Vital Signs Reviewed: Yes Diagnostics - Vital Signs Vital Signs Temp Pulse Resp BP Pulse Ox 01/06/18 01:35 196/91 01/06/18 01:16 98 F 79 17 209/89 99 - Laboratory Result Diagrams: 01/06/18 02:35 01/06/18 02:35 Lab Statement: Any lab studies that have been ordered have been reviewed, and results considered in the medical decision making process. Re-Evaluation - Re-Evaluation First Eval Re-Evaluation Time: 04:15 Change: Improved - The pt feels better, her BP is lowered and she will be discharged home. Hypertension Course/Dx - Course Course Of Treatment: Elderly woman with CKD, htn presents with elevation of BP with some vague associated symptoms. I doubt they are related, as she still has the tinnitus even with her BP reduced. Screening labs notable mainly for moderate hyponatremia. She does run a bit low but this is lower than her usual so I asked her to check with her office lead later this week to get another blood test. She does not appear to be symptomatic with the hyponatremia. Similarly I am deferring any changes in her antihypertensive regiman to her office lead. - Diagnoses Provider Diagnoses: Uncontrolled hypertension, Hyponatremia, Chronic renal insufficiency, stage IV (severe) Discharge - Sign-Out/Discharge Documenting (check all that apply): Discharge/Admit/Transfer - Discharge Plan Condition: Improved Disposition: HOME Patient Education Materials: Hypertension (ED) Referrals: Tyron Garcia MD [Primary Care Provider] - Additional Instructions: Your sodium level was lower than your usual level tonight. It is not low enough to require any specific treatment right now, but should be rechecked within the week to make sure it is not declining further. I m deferring any decisions on changing your blood pressure medications to your office lead. RETURN TO THE EMERGENCY DEPARTMENT FOR CHANGING OR WORSENING SYMPTOMS. - Billing Disposition and Condition Condition: IMPROVED Disposition: HOME The documentation as recorded by the Medhat boggs Sixian accurately reflects the service I personally performed and the decisions made by me, Haroldo Leiva MD.
== END 2018-01-06 05:34 | disposition home or self-care (01) ==
LOC: ED 00:49
DX: I12.9 Hypertensive chronic kidney disease with stage 1 through stage 4 chronic kidney disease, or unspecified chronic kidney disease (principal); E87.1 Hypo-osmolality and hyponatremia; E11.22 Type 2 diabetes mellitus with diabetic chronic kidney disease; N18.4 Chronic kidney disease, stage 4 (severe); Z87.891 Personal history of nicotine dependence; Z85.3 Personal history of malignant neoplasm of breast; R39.198 Other difficulties with micturition
CPT/HCPCS: 36415; 80053; 81003; 81015; 83735; 85025; 87077; 87086; 87186; 99283; A9270-GY

== ENCOUNTER 2018-01-08 14:58 | Emergency (ER) | payer MEDICAID, MEDICARE ==
[2018-01-08 17:00] LABS: ABS Basophils 0.1 10^3/ul (0-0.2); ABS Eosinophils 0.1 10^3/ul (0-0.6); ABS Lymphocytes 1.2 10^3/ul (1.0-4.8); ABS Monocytes 0.7 10^3/ul (0-0.8); ABS Neutrophils 6.2 10^3/ul (1.5-7.7); ABS Nucleated RBC 0 10^3/ul; Eosinophil % 0.6 % (0-6); Hematocrit 24 % (35-47); Hemoglobin 7.9 g/dl (12.0-16.0); Lymphocyte % 15.1 % (25-47); Mean Corpuscular HGB Conc 33 g/dl (31-36); Mean Corpuscular Hemoglobin 28 pg (27-31); Mean Corpuscular Volume 85 fL (80-97); Nucleated Red Blood Cells % 0; Platelet Count 349 10^3/ul (150-450); Red Blood Count 2.88 10^6/ul (4.0-5.4); Red Cell Distribution Width 17 % (10.5-15); White Blood Count 8.3 10^3/ul (3.5-10.8)
[2018-01-08 17:10] LABS: INR 0.93 (0.77-1.02)
[2018-01-08 17:18] LABS: EGFR Non-African American 11.8 (>60)
[2018-01-08 17:19] LABS: Urine Appearance Cloudy; Urine Blood Negative (Negative); Urine Color Yellow; Urine Ketones Negative (Negative); Urine Protein 3+(>=500 mg/dL) (Negative); Urine Specific Gravity 1.007 (1.010-1.030); Urine Urobilinogen Negative (Negative)
[2018-01-08] MEDS ORDERED: Acetaminophen TAB* 325 MG PO ONE (17:47)
--- NOTE | 2018-01-08 17:49 | RAD ---
INDICATION: Hypertension. Headaches. COMPARISON: None TECHNIQUE: Noncontrast axial source images were acquired from the skull base to the vertex. FINDINGS: Ventricles/sulci: The ventricles and cisterns are normal in size and configuration for age. Brain parenchyma: There is no focal parenchymal finding, evidence of intracranial mass, or intracranial mass effect. Intracranial hemorrhage:None. Extra-axial spaces: There are no abnormal extra axial fluid collections or evidence of extra-axial mass. Calvarium: There is no calvarial fracture or other calvarial abnormality. Scalp: There is no evidence of scalp or extracalvarial soft tissue abnormality. Paranasal sinuses/mastoid: The paranasal sinuses and mastoid air cells are clear. Other: None. IMPRESSION: NEGATIVE EXAMINATION
[2018-01-08] MEDS ORDERED: cefTRIAXone(*) 1 GM in NS 0.9% 50 ML* 50 ML IVPB ONE (18:05)
[2018-01-08] MEDS ORDERED: Insulin REGULAR(*) 1 UNITS UNIT IV PUSH ONE (18:06)
[2018-01-08] MEDS ORDERED: Dextrose 50% VIAL 50 ml IV ONE (18:07)
[2018-01-08] MEDS ORDERED: NS 0.9% 500 ML* 500 ML IV ONE (18:08)
[2018-01-08] MEDS ORDERED: Dextrose 50% Syringe 50 ML* 25 GM/50 ML SYRINGE ONE (18:34)
[2018-01-08] MEDS ORDERED: Dextrose 50% Syringe 50 ML* 25 GM/50 ML SYRINGE IV PUSH ONE (18:41)
[2018-01-08] MEDS ORDERED: Labetalol IV* 5 MG/ML 20 ML VIAL IV PUSH ONE ×2 (20:17→20:44)
[2018-01-08] MEDS ORDERED: diPHENhydraMINE IV* 50 MG/ML 1 ml VIAL (BENADRYL) IV ONE (20:22)
[2018-01-08] MEDS ORDERED: cloNIDine TAB* 0.1 MG PO ONE (23:13)
[2018-01-08] MEDS ORDERED: amLODIPine TAB* 5 MG PO ONE (23:14)
[2018-01-08] MEDS ORDERED: Labetalol TAB* 200 MG PO ONE (23:15)
[2018-01-09 01:03] VITALS: BP 162/75
--- NOTE | 2018-01-09 06:35 | PN ---
Progress Note - Progress Note Date of Service: 01/06/18 Note: Urine culture final [place], count Klebsiella pneumonia 10 - 25,000 Asymptomatic per note [place] count is low, therefore will not treat at this time
--- NOTE | 2018-01-09 07:18 | CONSULT ---
Consult Consult: PCP: JOHN Garcia MD Date/Time: 01/08/20182044 Reason for Consult: hypertensive urgency HPI: Mrs Moreira is a 67YO obese female HX HTN, DM2, chronic hep C, anemia, breast CA, HLD, & CKD 3 presents with dizziness, headache, & N/T in B feet which is how she feels when her blood pressure is very high. In fact it was measured at up to 220 systolic. She denied chest pain, SOB, palpitations, N/V, sweats, focal unilateral W/N/T, slurred speech, or visual changes. She developed her symptoms after becoming stressed over receiving the news that a recent capsule endoscopy yielded bleeding from the small bowel which will require specialized scoping at a larger facility. PMedHx HTN insulin requiring DM2 chronic hepatitis C iron deficiency & renal disease anemia breast CA HLD CKD stg 3 Ambulatory Orders Magnesium Oxide [Magnesium] 250 mg PO DAILY 11/24/17 Ranitidine TAB (NF) [Zantac TAB (NF)] 150 mg PO BID 11/24/17 Vitamin E CAP* 400 unit PO DAILY 11/24/17 Zinc 50 mg PO DAILY 11/24/17 amLODIPine TAB* [Norvasc 5 mg TAB*] 10 mg PO DAILY 11/24/17 cloNIDine TAB* [Catapres 0.1 MG TAB*] 0.2 mg PO TID 11/24/17 Isosorbide Mononitrate ER TAB* [Imdur ER TAB*] 30 mg PO DAILY #30 tab.er LORazepam TAB(*) [Ativan 0.5 MG TAB (*)] 0.5 mg PO BID PRN #20 tab MDD 2 Labetalol TAB* [Trandate TAB*] 300 mg PO BID #60 tab 11/30/17 Ascorbic Acid TAB* [Vitamin C TAB*] 500 mg PO DAILY 12/23/17 Cholecalciferol TAB* [Vitamin D TAB*] 50,000 unit PO WEEKLY 01/08/18 Insulin ASPART (NF) [Novolog (NF)] 2 - 5 units SUBCUT TID AC 01/08/18 Insulin GLARGINE(*) [Lantus(*)] 20 units SUBCUT BID 01/08/18 [place]-3 Fatty Acids (Nf) [Fish Oil (NF)] 1,000 mg PO DAILY 01/08/18 Terazosin CAP* [Hytrin CAP*] 10 mg PO DAILY 01/08/18 Allergies enalapril Allergy (Verified 01/06/18 01:00) Swelling Of Face,Lips,& Throat diltiazem Adverse Reaction (Verified 01/08/18 20:30) Palpitations hydralazine Adverse Reaction (Verified 01/08/18 20:30) Palpitations verapamil Adverse Reaction (Verified 01/08/18 20:30) Palpitations PSurgHx OU cataract extractions R breast lumpectomy (cancer) tubal ligation R carpal tunnel release L TKA SocHx: former smoker, former alcoholic (sober since 2011), denies recreational drugs; ; 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; full code status FamHx: Mother: passed at 38 2nd complications of alcoholism & DM2; Father: unknown ROS: as above, otherwise reviewed and all were negative vitals: Vital Signs Temp 37.0 C 01/09/18 00:57 Pulse 87 01/09/18 00:57 Resp 20 01/09/18 00:57 BP 162/75 01/09/18 00:57 Pulse Ox 100 01/09/18 00:57 Intake & Output 01/08/18 01/08/18 01/09/18 11:59 23:59 11:59 Intake Total 1100 Balance 1100 Weight 79.832 kg Intake: IV Fluids 600 IVPB 500 Constitutional: NAD, normally developed, obese black female HEENM: atraumatic; sclera/conjunctiva: anicteric/mildly injected OU; hearing: clinically intact; oropharynx: clear, mucosa moist Neck: soft tissue: non-tender; thyroid: normal Pulmonary: clear to auscultation bilaterally, good aeration, no accessory muscle use CV: RR/RR, normal S1S2, no carotid bruit, no jugular venous distention, 2+ B DP/ PT, no edema Abdominal: soft, non-distended, non-tender, no rebound/guarding/rigidity, normoactive bowel sounds, no hepatosplenomegaly or masses, no costovertebral angle tenderness Musculoskeletal: general: grossly intact, non-tender Integumental: normal appearance and texture of exposed skin Psychiatric orientation: AA&O to PPS affect: calm mood: cooperative eye contact: good content: reliable responses: timely insight: fair Testing: Lab Results 01/08/18 01/08/18 01/08/18 Range/Units 16:49 16:49 16:49 WBC 8.3 (3.5-10.8) 10^3/ul RBC 2.88 L (4.0-5.4) 10^6/ul Hgb 7.9 L (12.0-16.0) g/dl Hct 24 L (35-47) % MCV 85 (80-97) fL MCH 28 (27-31) pg MCHC 33 (31-36) g/dl RDW 17 H (10.5-15) % Plt Count 349 (150-450) 10^3/ul MPV 7.0 L (7.4-10.4) um3 Neut % (Auto) 75.2 (38-83) % Lymph % (Auto) 15.1 L (25-47) % Antelope % (Auto) 8.4 H (0-7) % Eos % (Auto) 0.6 (0-6) % Baso % (Auto) 0.7 (0-2) % Absolute Neuts (auto) 6.2 (1.5-7.7) 10^3/ul Absolute Lymphs (auto) 1.2 (1.0-4.8) 10^3/ul Absolute Monos (auto) 0.7 (0-0.8) 10^3/ul Absolute Eos (auto) 0.1 (0-0.6) 10^3/ul Absolute Basos (auto) 0.1 (0-0.2) 10^3/ul Absolute Nucleated RBC 0 10^3/ul Nucleated RBC % 0 INR (Anticoag Therapy) 0.93 (0.77-1.02) Sodium 134 L D (139-145) mmol/L Potassium 5.3 H (3.5-5.0) mmol/L Chloride 105 (101-111) mmol/L Carbon Dioxide 22 (22-32) mmol/L Anion Gap 7 (2-11) mmol/L BUN 36 H (6-24) mg/dL Creatinine 3.81 H (0.51-0.95) mg/dL Est GFR ( Amer) 15.2 (>60) Est GFR (Non-Af Amer) 11.8 (>60) BUN/Creatinine Ratio 9.4 (8-20) Glucose 132 H (70-100) mg/dL Calcium 9.2 (8.6-10.3) mg/dL Total Bilirubin 0.20 (0.2-1.0) mg/dL AST 29 (13-39) U/L ALT 26 (7-52) U/L Alkaline Phosphatase 115 H (34-104) U/L Troponin I 0.01 (<0.04) ng/mL Total Protein 7.0 (6.4-8.9) g/dL Albumin 3.6 (3.2-5.2) g/dL Globulin 3.4 (2-4) g/dL Albumin/Globulin Ratio 1.1 (1-3) TSH 1.09 (0.34-5.60) mcIU/mL Urine Color Urine Appearance Urine pH (5-9) Ur Specific [place] (1.010-1.030) Urine Protein (Negative) Urine Ketones (Negative) Urine Blood (Negative) Urine Nitrate (Negative) Urine Bilirubin (Negative) Urine Urobilinogen (Negative) Ur Leukocyte Esterase (Negative) Urine WBC (Auto) (Absent) Urine RBC (Auto) (Absent) Ur Squamous Epith Cells (Absent) Urine Bacteria (Absent) Hyaline Casts (Absent) Urine Glucose (Negative) 01/08/18 01/08/18 01/08/18 Range/Units 16:52 19:59 21:49 WBC (3.5-10.8) 10^3/ul RBC (4.0-5.4) 10^6/ul Hgb (12.0-16.0) g/dl Hct (35-47) % MCV (80-97) fL MCH (27-31) pg MCHC (31-36) g/dl RDW (10.5-15) % Plt Count (150-450) 10^3/ul MPV (7.4-10.4) um3 Neut % (Auto) (38-83) % Lymph % (Auto) (25-47) % Antelope % (Auto) (0-7) % Eos % (Auto) (0-6) % Baso % (Auto) (0-2) % Absolute Neuts (auto) (1.5-7.7) 10^3/ul Absolute Lymphs (auto) (1.0-4.8) 10^3/ul Absolute Monos (auto) (0-0.8) 10^3/ul Absolute Eos (auto) (0-0.6) 10^3/ul Absolute Basos (auto) (0-0.2) 10^3/ul Absolute Nucleated RBC 10^3/ul Nucleated RBC % INR (Anticoag Therapy) (0.77-1.02) Sodium (139-145) mmol/L Potassium (3.5-5.0) mmol/L Chloride (101-111) mmol/L Carbon Dioxide (22-32) mmol/L Anion Gap (2-11) mmol/L BUN (6-24) mg/dL Creatinine (0.51-0.95) mg/dL Est GFR ( Amer) (>60) Est GFR (Non-Af Amer) (>60) BUN/Creatinine Ratio (8-20) Glucose (70-100) mg/dL Calcium (8.6-10.3) mg/dL Total Bilirubin (0.2-1.0) mg/dL AST (13-39) U/L ALT (7-52) U/L Alkaline Phosphatase (34-104) U/L Troponin I 0.00 0.00 (<0.04) ng/mL Total Protein (6.4-8.9) g/dL Albumin (3.2-5.2) g/dL Globulin (2-4) g/dL Albumin/Globulin Ratio (1-3) TSH (0.34-5.60) mcIU/mL Urine Color Yellow Urine Appearance Cloudy Urine pH 5.0 (5-9) Ur Specific [place] 1.007 L (1.010-1.030) Urine Protein 3+(>=500 mg/dl) A (Negative) Urine Ketones Negative (Negative) Urine Blood Negative (Negative) Urine Nitrate Negative (Negative) Urine Bilirubin Negative (Negative) Urine Urobilinogen Negative (Negative) Ur Leukocyte Esterase 1+ A (Negative) Urine WBC (Auto) 2+(11-20/hpf) A (Absent) Urine RBC (Auto) Absent (Absent) Ur Squamous Epith Cells Present A (Absent) Urine Bacteria 3+ A (Absent) Hyaline Casts Present A (Absent) Urine Glucose 1+(50 mg/dl) A (Negative) ECG, personally reviewed: NSR rate 79, no ischemia, benign appearing J-point elevation V4-6 CT brain WO, personally reviewed: IMPRESSION: NEGATIVE EXAMINATION Impression: 67F presenting with a hypertensive urgency DIAGNOSIS & PLAN Primary hypertensive urgency : blood pressures improved after 2 doses IV labetalol : patient monitored and given routine PO meds prior to discharge as her pressures were beginning to elevate : further monitoring after PO meds revealed stable systolic in the 170-180 range with resolution of symptoms : advised continued compliance with medication routine : follow up with PCP w/i 1 week with a list of blood pressures : return to ED via EMS for chest pain, focal unilateral W/N/T, slurred speech, or other worrisome symptoms
--- NOTE | 2018-01-15 00:58 | ED ---
Jonny Fernandez Natalie, scribed for Jerry Truong MD on 01/08/18 at 1621 . Hypertension - HPI Summary HPI Summary: The patient is a 67 y/o F presenting to the ED c/o dizziness and headache possibly from HTN today after receiving news that she has bleeding in small intestine at 14:00. She had received the news and was in her apartment when she fell dizzy, headache, and slightly confused. She states that when her blood pressure rises, she can feel tingling in her feet. She was supposed to go to an appointment with PCP Dr. Garcia, but she came here due to her symptoms. She took a Clonidine to treat the pain [employer] to relief. Pt additionally c/o low back pain. She denies abd pain. She currently feels like her BP has decreased, but she still has a headache. Pt has hx of stage 4 chronic kidney failure (not on dialysis), diabetes (insulin dependent). - History of Current Complaint Chief Complaint: EDHypertension Stated Complaint: GENERAL Hx Obtained From: Patient Onset/Duration: Started Days Ago, Still Present Timing: Constant Aggravating Factor(s): Nothing Alleviating Factor(s): Other - clonidine Associated Signs & Symptoms: Headaches, Dizziness, Other: - confusion - Allergies/Home Medications Allergies/Adverse Reactions: Allergies Allergy/AdvReac Type Severity Reaction Status Date / Time enalapril Allergy Swelling Verified 01/06/18 01:00 Of Face,Lips,& Throat diltiazem AdvReac Palpitation Verified 01/08/18 20:30 s hydralazine AdvReac Palpitation Verified 01/08/18 20:30 s verapamil AdvReac Palpitation Verified 01/08/18 20:30 s Home Medications: Home Medications Cholecalciferol TAB* [Vitamin D TAB*] 50,000 unit PO WEEKLY 01/08/18 [History Confirmed 01/08/18] Insulin ASPART (NF) [Novolog (NF)] 2 - 5 units SUBCUT TID AC 01/08/18 [History Confirmed 01/08/18] Insulin GLARGINE(*) [Lantus(*)] 20 units SUBCUT BID 01/08/18 [History Confirmed 01/08/18] [place]-3 Fatty Acids (Nf) [Fish Oil (NF)] 1,000 mg PO DAILY 01/08/18 [History Confirmed 01/08/18] Terazosin CAP* [Hytrin CAP*] 10 mg PO DAILY 01/08/18 [History Confirmed 01/08/18 ] PMH/Surg Hx/FS Hx/Imm Hx Endocrine/Hematology History: Reports: Hx Diabetes, Hx Anemia Denies: Hx Anticoagulant Therapy, Hx Blood Disorders, Hx Thyroid Disease, Hx Unexplained Bleeding Cardiovascular History: Reports: Hx Cardiomegaly - slightly enlarged per md, Hx Hypercholesterolemia, Hx Hypertension, Other Cardiovascular Problems/Disorders - DIABETIC Denies: Hx Angina, Hx Atrial Fibrillation, Hx Coronary Artery Disease, Hx Myocardial Infarction, Hx Pacemaker/ICD, Hx Syncope, Hx Valvular Heart Disease Respiratory History: Denies: Hx Asthma, Hx Chronic Obstructive Pulmonary Disease (COPD) GI History: Reports: Hx Gastroesophageal Reflux Disease, Hx Gastrointestinal Bleed, Hx Irritable Bowel, 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 History: Reports: Hx Chronic Renal Failure Musculoskeletal History: Reports: Hx Orthopedic Injury - Left knee Denies: Hx Arthritis, Hx Osteoporosis Sensory History: Reports: Hx Cataracts, Hx Contacts or Glasses Denies: Hx Hearing Aid Opthamlomology History: Reports: Hx Cataracts, Hx Contacts or Glasses Neurological History: Reports: Hx Headaches Psychiatric History: Reports: Hx Anxiety - Cancer History Cancer Type, Location and Year: Breast CA Hx Chemotherapy: No - radiation Hx Radiation Therapy: Yes - Surgical History Surgery Procedure, Year, and Place: left knee replacement 2013 [facility]. lumpectomy under right arm 2014. AVM repair 02/2016. right cataract surgery with lens implant 02/2016. right wrist surgery - carpal tunnel 1999. tubal ligation 1977 in [place]. repair of incision from tubal surgery Hx Anesthesia Reactions: No Infectious Disease History: No Infectious Disease History: Reports: Hx Hepatitis Denies: Hx of Known/Suspected MRSA, Traveled Outside the [place] in Last 30 Days - Family History Known Family History: Positive: Cardiac Disease, Diabetes - Social History Alcohol Use: None Hx Substance Use: No Substance Use Type: Reports: None Hx Tobacco Use: Yes Smoking Status (MU): Former Smoker Amount Used/How Often: 1/2 ppd Length of Time of Smoking/Using Tobacco: Quit 11/28/2016 Have You Smoked in the Last Year: Yes Review of Systems Positive: Other - HTN Negative: Abdominal Pain Positive: Other - low back pain Neurological: Other - dizzy, slightly confused Positive: Headache, Paresthesia - in feet All Other Systems Reviewed And Are Negative: Yes Physical Exam - Summary Physical Exam Summary: Appearance: Well-appearing, Well-nourished Skin: Warm Eyes: Normal Head: Normocephalic, atraumatic ENT: Normal, left eye strabismus at baseline, extraocular movements in tact Neck: Supple, nontender Respiratory: Clear to auscultation Cardiovascular: Normal S1, S2. No murmurs. Normal distal pulses in tibial and radial bilaterally. Abdomen: Soft, nontender Musculoskeletal: Normal, Strength/ROM Intact Neurological: Normal, A&Ox3 Psychiatric: Normal General: No acute distress Triage Information Reviewed: Yes Vital Signs On Initial Exam: Initial Vitals Temp Pulse Resp BP Pulse Ox 98.3 F 80 20 169/68 97 01/08/18 15:11 01/08/18 15:11 01/08/18 15:11 01/08/18 15:11 01/08/18 15:11 Vital Signs Reviewed: Yes Diagnostics - Vital Signs Vital Signs Temp Pulse Resp BP Pulse Ox 01/08/18 15:31 83 27 196/86 100 01/08/18 15:30 79 24 100 01/08/18 15:11 98.3 F 80 20 169/68 97 - Laboratory Result Diagrams: 01/08/18 16:49 01/08/18 16:49 Lab Statement: Any lab studies that have been ordered have been reviewed, and results considered in the medical decision making process. - CT Brain CT CT Interpretation: No Acute Changes - Negative examination. ED physician has reviewed this report. CT Interpretation Completed By: Radiologist - EKG 16:36 Cardiac Rate: NL EKG Rhythm: 3rd Degree HB - 79 BPM EKG Interpretation: Abnormal R-wave progression. No acute ischemic ST changes. Hypertension Course/Dx - Course Assessment/Plan: I had a conversation with our hospitalist Dr. Swanson who was informed of the patient's case and provided us with assistance in management. - Diagnoses Provider Diagnoses: Hypertension Discharge - Sign-Out/Discharge Documenting (check all that apply): Discharge/Admit/Transfer - Discharge Plan Condition: Stable Disposition: HOME Patient Education Materials: Hypertensive Crisis (ED) Referrals: Tryon Garcia MD [Primary Care Provider] - 3 Days Additional Instructions: NO CHANGE IN MEDICATION. TAKE YOUR BLOOD PRESSURE MEDICATION USUAL. STAY AWAY FROM [place]. RETURN TO THE EMERGENCY DEPARTMENT FOR NEW OR CHANGING SYMPTOMS - Billing Disposition and Condition Condition: STABLE Disposition: HOME The documentation as recorded by the Jonny boggs Natalie accurately reflects the service I personally performed and the decisions made by me, Jerry Truong MD.
== END 2018-01-09 00:57 | disposition home or self-care (01) ==
LOC: ED 14:58
DX: I12.9 Hypertensive chronic kidney disease with stage 1 through stage 4 chronic kidney disease, or unspecified chronic kidney disease (principal); E11.22 Type 2 diabetes mellitus with diabetic chronic kidney disease; N18.4 Chronic kidney disease, stage 4 (severe); M54.5 Low back pain; Z79.4 Long term (current) use of insulin; Z79.899 Other long term (current) drug therapy; Z87.891 Personal history of nicotine dependence; Z88.3 Allergy status to other anti-infective agents
CPT/HCPCS: 36415; 70450; 80053; 81003; 81015; 84443; 84484; 85025; 85610; 87077; 87086; 87186; 93005; 96374; 96375; 96376; 99285; A9270-GY; J0696; J1200

== ENCOUNTER 2018-07-11 14:40 | Emergency (ER) | payer MEDICARE ==
--- NOTE | 2018-07-11 15:00 | ED ---
Complex/Multi-Sys Presentation - HPI Summary HPI Summary: The pt is a 68 y.o female presenting to the [facility] via ambulance with c/o of nasal congestion, chills, itchy throat, coughing with phlegm, and chest tightness. The phlegm is described as whitish/yellowish. The pt has PMHx of HTN , DM, and Stage 3 Kidney Failure as well as anemia. The pt states that the onset of the symptoms began on Thursday07/05/18 and then worsened on Thursday ( 07/07/18). She has been on HTN medication. Pt also denies sore thorat but reports of hoarseness. The patient rates the pain as 0/10 in severity. Symptoms alleviated by nothing. Symptoms aggravated by nothing. - History Of Current Complaint Time Seen by Provider: 07/11/18 14:49 Hx Obtained From: Patient Onset/Duration: Gradual Onset - Since 07/05/18, Worse Since - 07/07/18 Timing: Constant Aggravating Factor(s): Nothing Alleviating Factor(s): Nothing Associated Signs And Symptoms: Positive: Cough - Productive with white/ yellowish phlegm, Other - Ithcy throat, nasal congestion, chest tightness, hoarseness and chills - Allergies/Home Medications Allergies/Adverse Reactions: Allergies Allergy/AdvReac Type Severity Reaction Status Date / Time enalapril Allergy Swelling Verified 07/11/18 15:00 Of Face,Lips,& Throat diltiazem AdvReac Palpitation Verified 07/11/18 15:00 s hydralazine AdvReac Palpitation Verified 07/11/18 15:00 s verapamil AdvReac Palpitation Verified 07/11/18 15:00 s PMH/Surg Hx/FS Hx/Imm Hx Endocrine/Hematology History: Reports: Hx Diabetes, Hx Anemia Denies: Hx Anticoagulant Therapy, Hx Blood Disorders, Hx Thyroid Disease, Hx Unexplained Bleeding Cardiovascular History: Reports: Hx Cardiomegaly - slightly enlarged per md, Hx Hypercholesterolemia, Hx Hypertension, Other Cardiovascular Problems/Disorders - DIABETIC Denies: Hx Angina, Hx Atrial Fibrillation, Hx Coronary Artery Disease, Hx Myocardial Infarction, Hx Pacemaker/ICD, Hx Syncope, Hx Valvular Heart Disease Respiratory History: Denies: Hx Asthma, Hx Chronic Obstructive Pulmonary Disease (COPD) GI History: Reports: Hx Gastroesophageal Reflux Disease, Hx Gastrointestinal Bleed, Hx Irritable Bowel, 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 History: Reports: Hx Chronic Renal Failure Musculoskeletal History: Reports: Hx Orthopedic Injury - Left knee Denies: Hx Arthritis, Hx Osteoporosis Sensory History: Reports: Hx Cataracts, Hx Contacts or Glasses Denies: Hx Hearing Aid Opthamlomology History: Reports: Hx Cataracts, Hx Contacts or Glasses Neurological History: Reports: Hx Headaches Psychiatric History: Reports: Hx Anxiety - Cancer History Cancer Type, Location and Year: Breast CA Hx Chemotherapy: No - radiation Hx Radiation Therapy: Yes - Surgical History Surgery Procedure, Year, and Place: left knee replacement 2013 [facility]. lumpectomy under right arm 2014. AVM repair 02/2016. right cataract surgery with lens implant 02/2016. right wrist surgery - carpal tunnel 1999. tubal ligation 1977 in [place]. repair of incision from tubal surgery Hx Anesthesia Reactions: No Infectious Disease History: No Infectious Disease History: Reports: Hx Hepatitis Denies: Hx of Known/Suspected MRSA, Traveled Outside the [place] in Last 30 Days - Family History Known Family History: Positive: Cardiac Disease, Diabetes - Social History Occupation: Retired Alcohol Use: None Hx Substance Use: No Substance Use Type: Reports: None Hx Tobacco Use: Yes Smoking Status (MU): Former Smoker Amount Used/How Often: 1/2 ppd Length of Time of Smoking/Using Tobacco: Quit 11/28/2016 Have You Smoked in the Last Year: No Review of Systems Positive: Chills Eyes: Negative ENT: Other - Hoarseness, Itchy throat, and nasal congestion Negative: Sore Throat Cardiovascular: Other - Chest tightness Positive: Cough - Productive with phlegm (white/yellowish) Gastrointestinal: Negative Genitourinary: Negative Musculoskeletal: Negative Skin: Negative Neurological: Negative Psychological: Normal All Other Systems Reviewed And Are Negative: Yes Physical Exam - Summary Physical Exam Summary: Appearance: The patient is well-nourished in no acute distress and in no acute pain. Skin: The skin is warm and dry and skin color reflects adequate perfusion. HEENT: The head is normocephalic and atraumatic. The pupils are equal and reactive. The conjunctivae are clear and without drainage. Nares are patent and without drainage. Mouth reveals moist mucous membranes and the throat is without erythema and exudate. The external ears are intact. The ear canals are patent and without drainage. The tympanic membranes are intact. Neck: The neck is supple with full range of motion and non-tender. There are no carotid bruits. There is no neck vein distension. Respiratory: Chest is non-tender. Lungs are clear to auscultation and breath sounds are symmetrical and equal. Cardiovascular: Heart is regular rate and rhythm. There is no murmur or rub auscultated. There is no peripheral edema and pulses are symmetrical and equal. Abdomen: The abdomen is soft and non-tender. There are normal bowel sounds heard in all four quadrants and there is no organomegaly palpated. Musculoskeletal: There is no back tenderness noted. Extremities are non-tender with full range of motion. There is good capillary refill. There is no peripheral edema or calf tenderness elicited. Neurological: Patient is alert and oriented to person, place and time. The patient has symmetrical motor strength in all four extremities. Cranial nerves are grossly intact. Deep tendon reflexes are symmetrical and equal in all four extremities. Psychiatric: The patient has an appropriate affect and does not exhibit any anxiety or depression. Triage Information Reviewed: Yes Vital Signs On Initial Exam: Initial Vitals Temp Pulse Resp BP Pulse Ox 98.8 F 79 20 172/83 98 07/11/18 14:48 07/11/18 14:48 07/11/18 14:48 07/11/18 14:48 07/11/18 14:48 Vital Signs Reviewed: Yes Diagnostics - Vital Signs Vital Signs Temp Pulse Resp BP Pulse Ox 07/11/18 14:48 98.8 F 79 20 172/83 98 - Laboratory Lab Statement: Any lab studies that have been ordered have been reviewed, and results considered in the medical decision making process. - Radiology Chest X-ray Radiology Interpretation Completed By: Radiologist - CXR reveals, per radiologist, Unchanged severe cardiomegaly. No acute cardiopulmonary process evident. ED physician has reviewed this radiology report. Complex Multi-Symp Course/Dx Course Of Treatment: Ms. Moreira presented complaining of several days of URI symptoms. She is complaining primarily of a cough at this point. She denies sore throat or earache. She's had no fever or chills. Chest x-ray and influenza swab are negative. I'm going to treat this viral illness with symptomatic medication. - Diagnoses Provider Diagnoses: URI (upper respiratory infection), Bronchitis Discharge - Sign-Out/Discharge Documenting (check all that apply): Patient Departure - Discharge Plan Condition: Stable Disposition: HOME Prescriptions: Codeine Phosphate/Guaifenesin [Guaiatussin AC Liquid] 5 ml PO Q4HR #120 ml MDD 30 cc Patient Education Materials: Upper Respiratory Infection (ED), Acute Bronchitis (ED) Referrals: Tyron Garcia MD [Primary Care Provider] - - Billing Disposition and Condition Condition: STABLE Disposition: Home - Attestation Statements Document Initiated by Scribe: Yes Documenting Scribe: Jono Fam Provider For Whom Scribe is Documenting (Include Credential): Dr. Haroldo Jones Scribe Attestation: Jono Fernandez, scribed for Dr. Haroldo Jones on 07/11/18 at 1923. Scribe Documentation Reviewed: Yes Provider Attestation: The documentation as recorded by the scribe, Jono Fam accurately reflects the service I personally performed and the decisions made by me, Dr. Haroldo Jones
[2018-07-11 17:02] VITALS: BP 174/83
== END 2018-07-11 17:11 | disposition home or self-care (01) ==
LOC: ED 14:40
DX: J06.9 Acute upper respiratory infection, unspecified (principal); J40 Bronchitis, not specified as acute or chronic; Z87.891 Personal history of nicotine dependence; I51.7 Cardiomegaly; K21.9 Gastro-esophageal reflux disease without esophagitis; E11.8 Type 2 diabetes mellitus with unspecified complications; D64.9 Anemia, unspecified; I12.9 Hypertensive chronic kidney disease with stage 1 through stage 4 chronic kidney disease, or unspecified chronic kidney disease; E11.22 Type 2 diabetes mellitus with diabetic chronic kidney disease; N18.3 Chronic kidney disease, stage 3 (moderate)
CPT/HCPCS: 71046; 99283

== ENCOUNTER 2018-11-03 18:34 | Inpatient (IN) | payer MEDICARE ==
[2018-11-03] MEDS ORDERED: Aspirin 81 mg CHEW TAB* 81 MG TAB.CHEW PO ONE (18:56)
[2018-11-03 19:37] LABS: ABS Basophils 0.1 10^3/ul (0-0.2); ABS Eosinophils 0 10^3/ul (0-0.6); ABS Monocytes 1.2 10^3/ul (0-0.8); ABS Neutrophils 6.7 10^3/ul (1.5-7.7); ABS Nucleated RBC 0 10^3/ul; Eosinophil % 0.4 %; Hematocrit 31 % (35-47); Hemoglobin 10.2 g/dl (12.0-16.0); Lymphocyte % 11.6 %; Mean Corpuscular HGB Conc 34 g/dl (31-36); Mean Corpuscular Hemoglobin 30 pg (27-31); Mean Corpuscular Volume 88 fL (80-97); Mean Platelet Volume 7.7 fL (7.4-10.4); Nucleated Red Blood Cells % 0.1; Platelet Count 303 10^3/ul (150-450); Red Blood Count 3.45 10^6/ul (4.00-5.40); Red Cell Distribution Width 18 % (10.5-15)
[2018-11-03 19:43] LABS: INR 1.04 (0.77-1.02)
[2018-11-03 19:57] LABS: Troponin I 0.01 ng/mL (<0.04)
[2018-11-03 19:58] LABS: Albumin 3.4 g/dL (3.2-5.2); Albumin/Globulin Ratio 1.1 (1-3); BUN/Creatinine Ratio 5.9 (8-20); Calcium 8.7 mg/dL (8.6-10.3); EGFR African American 5.6 (>60); EGFR Non-African American 4.6 (>60); Magnesium 1.9 mg/dL (1.9-2.7); Total Bilirubin 0.3 mg/dL (0.2-1.0); Total Protein 6.4 g/dL (6.4-8.9)
[2018-11-03 19:59] LABS: Potassium 5.5 mmol/L (3.5-5.0)
[2018-11-03 20:34] LABS: TSH (Thyroid Stimulating Horm) 1.25 mcIU/mL (0.34-5.60)
--- NOTE | 2018-11-03 20:58 | ED ---
HPI Chest Pain - HPI Summary HPI Summary: Patient complains of chest pain starting last night. Chest pain described as constant, pressure, worse when lying flat, with deep breaths, with movement. Pain radiates to her back when she lies flat. Also complains of increasing exertional SOB over the past 2 weeks. Denies fever, cough, sore throat, N/V/D, abdominal pain, change in urine, change in BM. Patient is pending dialysis for ED. Medical history also includes DM 2, HTN, hypothyroid. - History of Current Complaint Chief Complaint: EDChestPainROMI Time Seen by Provider: 11/03/18 18:43 Hx Obtained From: Patient Onset/Duration: Started Hours Ago Timing: Constant Initial Severity: Moderate Current Severity: Moderate Pain Intensity: 8 Pain Scale Used: 0-10 Numeric Chest Pain Location: Mid Sternal Chest Pain Radiates: Yes Chest Pain Radiates To:: Back Character: Pressure/Squeezing Aggravating Factor(s): Position, Movement, Deep Breaths Alleviating Factor(s): Rest, Position Associated Signs and Symptoms: Positive: Chest Pain, Shortness of Breath, Back Pain - Additional Pertinent History Primary Care Physician: [id number] - Allergy/Home Medications Allergies/Adverse Reactions: Allergies Allergy/AdvReac Type Severity Reaction Status Date / Time enalapril Allergy Swelling Verified 11/03/18 18:44 Of Face,Lips,& Throat diltiazem AdvReac Palpitation Verified 11/03/18 18:44 s hydralazine AdvReac Palpitation Verified 11/03/18 18:44 s verapamil AdvReac Palpitation Verified 11/03/18 18:44 s PMH/Surg Hx/FS Hx/Imm Hx Endocrine/Hematology History: Reports: Hx Diabetes, Hx Anemia Denies: Hx Anticoagulant Therapy, Hx Blood Disorders, Hx Thyroid Disease, Hx Unexplained Bleeding Cardiovascular History: Reports: Hx Cardiomegaly - slightly enlarged per md, Hx Hypercholesterolemia, Hx Hypertension, Other Cardiovascular Problems/Disorders - DIABETIC Denies: Hx Angina, Hx Atrial Fibrillation, Hx Coronary Artery Disease, Hx Myocardial Infarction, Hx Pacemaker/ICD, Hx Syncope, Hx Valvular Heart Disease Respiratory History: Denies: Hx Asthma, Hx Chronic Obstructive Pulmonary Disease (COPD) GI History: Reports: Hx Gastroesophageal Reflux Disease, Hx Gastrointestinal Bleed, Hx Irritable Bowel, 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 History: Reports: Hx Chronic Renal Failure Musculoskeletal History: Reports: Hx Orthopedic Injury - Left knee Denies: Hx Arthritis, Hx Osteoporosis Sensory History: Reports: Hx Cataracts, Hx Contacts or Glasses Denies: Hx Hearing Aid Opthamlomology History: Reports: Hx Cataracts, Hx Contacts or Glasses Neurological History: Reports: Hx Headaches Psychiatric History: Reports: Hx Anxiety - Cancer History Cancer Type, Location and Year: Breast CA Hx Chemotherapy: No - radiation Hx Radiation Therapy: Yes - Surgical History Surgery Procedure, Year, and Place: left [facility] replacement [facility] lumpectomy under right arm 2014. AVM repair 02/2016. right cataract surgery with lens implant 02/2016. right wrist surgery - carpal tunnel 1999. tubal ligation 1977 in [place]. repair of incision from tubal surgery Hx Anesthesia Reactions: No Infectious Disease History: No Infectious Disease History: Reports: Hx Hepatitis Denies: Hx of Known/Suspected MRSA, Traveled Outside the [place] in Last 30 Days - Family History Known Family History: Positive: Cardiac Disease, Diabetes - Social History Alcohol Use: None Hx Substance Use: No Substance Use Type: Reports: None Hx Tobacco Use: Yes Smoking Status (MU): Former Smoker Amount Used/How Often: 1/2 ppd Length of Time of Smoking/Using Tobacco: Quit 11/28/2016 Have You Smoked in the Last Year: No Review of Systems Constitutional: Negative Eyes: Negative ENT: Negative Positive: Chest Pain Positive: Shortness Of Breath Gastrointestinal: Negative Genitourinary: Negative Musculoskeletal: Negative Skin: Negative Neurological: Negative Psychological: Normal All Other Systems Reviewed And Are Negative: Yes Physical Exam - Summary Physical Exam Summary: RRR. Lung sounds clear to auscultation bilaterally. Chest pain not reproducible. Abdomen soft nontender. Bilateral lower extremity edema. Triage Information Reviewed: Yes Vital Signs On Initial Exam: Initial Vitals Pulse Resp BP Pulse Ox 80 21 177/75 98 11/03/18 18:36 11/03/18 18:36 11/03/18 18:36 11/03/18 18:36 Vital Signs Reviewed: Yes Appearance: Positive: Well-Appearing Skin: Positive: Warm Head/Face: Positive: Normal Head/Face Inspection Eyes: Positive: Normal Neck: Positive: Supple Respiratory/Lung Sounds: Positive: Clear to Auscultation Cardiovascular: Positive: Normal Abdomen Description: Positive: Nontender Musculoskeletal: Positive: Normal Neurological: Positive: Normal Psychiatric: Positive: Normal AVPU Assessment: Alert - Sybil Coma Scale Best Eye Response: 4 - Spontaneous Best Motor Response: 6 - Obeys Commands Best Verbal Response: 5 - Oriented Coma Scale Total: 15 Diagnostics - Vital Signs Vital Signs Temp Pulse Resp BP Pulse Ox 11/03/18 19:06 82 23 173/72 98 11/03/18 19:05 82 21 99 11/03/18 18:37 98.9 F 79 21 177/75 98 11/03/18 18:36 80 21 177/75 98 - Laboratory Lab Results: Lab Results 11/03/18 11/03/18 11/03/18 Range/Units 19:23 19:23 19:23 WBC 9.0 (3.5-10.8) 10^3/ul RBC 3.45 L (4.00-5.40) 10^6/ul Hgb 10.2 L (12.0-16.0) g/dl Hct 31 L (35-47) % MCV 88 (80-97) fL MCH 30 (27-31) pg MCHC 34 (31-36) g/dl RDW 18 H (10.5-15) % Plt Count 303 (150-450) 10^3/ul MPV 7.7 (7.4-10.4) fL Neut % (Auto) 74.2 % Lymph % (Auto) 11.6 % [place] % (Auto) 13.2 % Eos % (Auto) 0.4 % Baso % (Auto) 0.6 % Absolute Neuts (auto) 6.7 (1.5-7.7) 10^3/ul Absolute Lymphs (auto) 1.0 (1.0-4.8) 10^3/ul Absolute Monos (auto) 1.2 H (0-0.8) 10^3/ul Absolute Eos (auto) 0 (0-0.6) 10^3/ul Absolute Basos (auto) 0.1 (0-0.2) 10^3/ul Absolute Nucleated RBC 0 10^3/ul Nucleated RBC % 0.1 INR (Anticoag Therapy) 1.04 H (0.77-1.02) Sodium 135 (135-145) mmol/L Potassium 5.5 H (3.5-5.0) mmol/L Chloride 112 H (101-111) mmol/L Carbon Dioxide 15 L (22-32) mmol/L Anion Gap 8 (2-11) mmol/L BUN 51 H (6-24) mg/dL Creatinine 8.63 H (0.51-0.95) mg/dL Est GFR ( Amer) 5.6 (>60) Est GFR (Non-Af Amer) 4.6 (>60) BUN/Creatinine Ratio 5.9 L (8-20) Glucose 103 H (70-100) mg/dL Lactic Acid (0.5-2.0) mmol/L Calcium 8.7 (8.6-10.3) mg/dL Magnesium 1.9 (1.9-2.7) mg/dL Total Bilirubin 0.30 (0.2-1.0) mg/dL AST 13 (13-39) U/L ALT 17 (7-52) U/L Alkaline Phosphatase 149 H (34-104) U/L Troponin I 0.01 (<0.04) ng/mL B-Natriuretic Peptide (<=100) pg/mL Total Protein 6.4 (6.4-8.9) g/dL Albumin 3.4 (3.2-5.2) g/dL Globulin 3.0 (2-4) g/dL Albumin/Globulin Ratio 1.1 (1-3) TSH 1.25 (0.34-5.60) mcIU/mL 11/03/18 11/03/18 Range/Units 19:23 19:23 WBC (3.5-10.8) 10^3/ul RBC (4.00-5.40) 10^6/ul Hgb (12.0-16.0) g/dl Hct (35-47) % MCV (80-97) fL MCH (27-31) pg MCHC (31-36) g/dl RDW (10.5-15) % Plt Count (150-450) 10^3/ul MPV (7.4-10.4) fL Neut % (Auto) % Lymph % (Auto) % [place] % (Auto) % Eos % (Auto) % Baso % (Auto) % Absolute Neuts (auto) (1.5-7.7) 10^3/ul Absolute Lymphs (auto) (1.0-4.8) 10^3/ul Absolute Monos (auto) (0-0.8) 10^3/ul Absolute Eos (auto) (0-0.6) 10^3/ul Absolute Basos (auto) (0-0.2) 10^3/ul Absolute Nucleated RBC 10^3/ul Nucleated RBC % INR (Anticoag Therapy) (0.77-1.02) Sodium (135-145) mmol/L Potassium (3.5-5.0) mmol/L Chloride (101-111) mmol/L Carbon Dioxide (22-32) mmol/L Anion Gap (2-11) mmol/L BUN (6-24) mg/dL Creatinine (0.51-0.95) mg/dL Est GFR ( Amer) (>60) Est GFR (Non-Af Amer) (>60) BUN/Creatinine Ratio (8-20) Glucose (70-100) mg/dL Lactic Acid 1.2 (0.5-2.0) mmol/L Calcium (8.6-10.3) mg/dL Magnesium (1.9-2.7) mg/dL Total Bilirubin (0.2-1.0) mg/dL AST (13-39) U/L ALT (7-52) U/L Alkaline Phosphatase (34-104) U/L Troponin I (<0.04) ng/mL B-Natriuretic Peptide 302 H (<=100) pg/mL Total Protein (6.4-8.9) g/dL Albumin (3.2-5.2) g/dL Globulin (2-4) g/dL Albumin/Globulin Ratio (1-3) TSH (0.34-5.60) mcIU/mL Result Diagrams: 11/03/18 19:23 11/03/18 19:23 Lab Statement: Any lab studies that have been ordered have been reviewed, and results considered in the medical decision making process. Chest Pain Course/Dx - Course Course Of Treatment: Patient complains of chest pain starting last night. Chest pain described as constant, pressure, worse when lying flat, with deep breaths, with movement. Pain radiates to her back when she lies flat. Also complains of increasing exertional SOB over the past 2 weeks. Denies fever, cough, sore throat, N/V/D, abdominal pain, change in urine, change in BM. Patient is pending dialysis for ED. Medical history also includes DM 2, HTN , hypothyroid. Physical exam:RRR. Lung sounds clear to auscultation bilaterally. Chest pain not reproducible. Abdomen soft nontender. Vital signs within normal limits. Hgb 10.2. Patient baseline. Potassium 5.5. Creatinine 8.63 which is significant increase from baseline. CO2 15. BNP 302. No prior to compare to. Chest x-ray unremarkable. EKG sinus rhythm. Troponins negative. Discussed patient with electricity trading analyst simulation analyst Dr. Del Rosario who recommended admitting patient for observation due to elevated creatinine and management of acidosis. - Diagnoses Provider Diagnoses: Elevated serum creatinine, Acidosis Discharge - Sign-Out/Discharge Documenting (check all that apply): Patient Departure Patient Received Moderate/Deep Sedation with Procedure: No - Discharge Plan Condition: Fair Disposition: ADMITTED TO [facility] - Billing Disposition and Condition Condition: FAIR Disposition: Admitted to [facility]
[2018-11-03] MEDS ORDERED: Dextrose 50% Syringe 50 ML* 25 GM/50 ML SYRINGE IV PUSH PRN (22:27)
--- NOTE | 2018-11-04 00:16 | HP ---
CC: Dr. De León; Dr. Becker * HISTORY AND PHYSICAL: DATE OF ADMISSION: 11/03/18 PRIMARY CARE PROVIDER: Dr. De León. CHIEF COMPLAINT: Chest pain. HISTORY OF PRESENT ILLNESS: Ms. Moreira is a 68-year-old female with a history of stage 4 to 5 chronic kidney disease, type 2 diabetes, and hypertension who presented to the emergency room with complaints of chest pain. The patient states that she had been in her usual state of health up until approximately 05: 30 in the morning of 11/03/18 when she was awakened from sleep with complaints of severe chest pain. She states the pain was worse when lying flat and trying to take a deep breath. She states it is not reproducible by palpitating her chest. She did feel short of breath with the chest discomfort; however, she also states that she has had shortness of breath that predated the chest discomfort. She states that over the last couple of weeks when walking or climbing a flight of stairs, she feels like she is "99 years old." The patient has also noted that there is increased lower extremity edema over the last 2 weeks. This is since her primary care provider increased her amlodipine dose. She currently states that her chest pain is improved from where it was earlier today and that she is now able to take a deep breath without severe pain. She describes the discomfort now is a 5 to 6 as opposed to an 8 when presented. PAST MEDICAL HISTORY: 1. Hypertension. 2. Type 2 diabetes with diabetic neuropathy and likely nephropathy. 3. Hepatitis C. 4. Tinnitus. 5. Iron deficiency anemia and anemia of chronic kidney disease. 6. History of right-sided breast cancer. 7. Dyslipidemia. 8. Stage 4 to 5 chronic kidney disease. PAST SURGICAL HISTORY: 1. Tubal ligation. 2. Right carpal tunnel release. 3. Left total knee replacement. 4. Right breast lumpectomy. 5. Bilateral cataract extractions. MEDICATIONS: 1. Labetalol 300 mg p.o. b.i.d. 2. Ativan 0.5 mg p.o. b.i.d. p.r.n. anxiety. 3. Imdur 30 mg p.o. daily. 4. Lantus 20 units subcutaneous twice daily. 5. NovoLog 2 to 5 units subcutaneous t.i.d. a.c. 6. Vitamin D 50,000 units p.o. weekly. 7. Vitamin C 500 mg p.o. daily. 8. Vitamin E 400 units p.o. daily. 9. Terazosin 10 mg p.o. daily. 10. Ranitidine 150 mg p.o. b.i.d. 11. Fish oil 1000 mg p.o. daily. 12. Magnesium oxide 250 mg p.o. daily. 13. Clonidine 0.2 mg p.o. t.i.d. 14. Amlodipine 10 mg p.o. daily. 15. Zinc 50 mg p.o. daily. ALLERGIES: ENALAPRIL, DILTIAZEM, and VERAPAMIL. FAMILY HISTORY: Mom of complications of alcoholism at the age of 38. She also had a history of diabetes. Dad's history is unknown. SOCIAL HISTORY: The patient smoked her entire adult life until 2017. 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 She is . She has 3 children. The patient's daughter, Kristal Gagnon, is her healthcare proxy. REVIEW OF SYSTEMS: A complete 11-system review of systems was obtained. Pertinent positives and negatives are as per HPI. In addition, the patient states that she has noticed a decreased volume of urine over the last few weeks. The other review of systems is as per HPI. PHYSICAL EXAMINATION GENERAL: The patient is a well-developed middle-aged female seen sitting up in the stretcher, in no acute distress. VITAL SIGNS: Blood pressure 173/86, pulse 85, respirations 17, temp 98.9, and O2 sat 98% on room air. HEENT: Pupils are equal and round. Extraocular muscles are intact. Oropharynx is clear. Oral mucosa is moist. There is no submandibular, cervical , or supraclavicular adenopathy. Thyroid is not enlarged. No thyroid nodules noted. PULMONARY: Lungs are clear to auscultation bilaterally. CARDIAC: Normal S1 and S2, regular rate and rhythm. I do not appreciate any murmur. There is right greater than left lower extremity edema. This is about 2+. ABDOMEN: Bowel sounds present. Abdomen is soft, nontender, nondistended. MUSCULOSKELETAL: There is no cyanosis or clubbing of the digits. There is is full active range of motion in all 4 extremities. SKIN: Warm and dry. There are no rashes. NEUROLOGIC: Cranial nerves II through XII are grossly intact. Sensation is intact to light touch throughout. Strength is 5/5 and symmetric in both upper and lower extremities bilaterally. PSYCHIATRIC: The patient is alert. She is oriented x3. Affect appears appropriate. DIAGNOSTIC STUDIES/LAB DATA: WBC 9.0, hemoglobin 10.2, hematocrit 31, platelets 303. INR 1.04. D-dimer 551. Sodium 135, potassium 5.5, chloride 112 , CO2 of 15, BUN 51, creatinine 8.63, glucose 103, lactic acid 1.2, calcium 8.7 , magnesium 1.9. Bilirubin 0.3, AST 13, ALT 17, alk phos 149. Troponin 0.01, repeated 0.01. BNP 302. Albumin 3.4. TSH 1.25. EKG reveals normal sinus rhythm without any acute ST-T wave abnormalities. Chest x-ray to my interpretation reveals enlarged cardiac silhouette, though the lungs appear clear. Compared to a chest x-ray from August 2018, it looks unchanged. ASSESSMENT AND PLAN: Ms. Moreira is a 68-year-old female who is verging on the need of initiation of dialysis, who also has uncontrolled hypertension, type 2 diabetes, and past history of breast cancer, who presents to the emergency room with complaints of chest pain. 1. Chest pain. I doubt this pain currently represents an acute coronary artery syndrome as the patient has had pain all day and the troponin is negative. Additionally, her EKG does not reveal any findings of ischemia. The patient will have a third troponin obtained, though again I think it is unlikely to be elevated. Pulmonary embolism is in the differential, especially given the sudden onset of the chest pain with lower extremity edema, though the patient denies any long distance travel. She is unable to obtain a CT angiogram of the chest due to her renal function, therefore I have ordered a V/ Q scan. The patient will have this obtained in the morning. I think, the likelihood that her chest pain represents pulmonary embolism is also unlikely as the patient is not tachycardiac and/or hypoxic. I am not going to initiate full-dose anticoagulation at this point due to the fact that I think the likelihood that pulmonary embolism is present is so low. 2. Worsening chronic kidney disease, now stage 5. Dr. Becker has been contacted. He has recommended giving Kayexalate and Bicitra. We do not have Kayexalate currently, therefore she will be given patiromer x1 dose. She will be started on Bicitra 30 mL p.o. t.i.d. She will be n.p.o. after midnight in hopes that a dialysis catheter can be placed tomorrow. A consult for this will need to be requested either to Dr. Mahoney in Interventional Radiology or General Surgery. There is no need tonight for emergent dialysis. 3. Type 2 diabetes. The patient will be maintained on her usual dose of Lantus. She will have a lispro sliding scale with finger-sticks a.c. and h.s. 4. Hypertension. The patient's blood pressure currently is markedly elevated, though it is unclear if she had her evening dose of clonidine. For now, I am not making any adjustments in her antihypertensive regimen; however, if she remains this hypertensive, a change in her regimen would be indicated. 5. Anemia of chronic kidney disease. We will continue to follow her H and H. She is currently at baseline. 6. Gastroesophageal reflux disease. Continue ranitidine. 7. DVT prophylaxis. According to the Adult Thrombosis Prophylaxis Risk Factor Assessment Guide, the patient has a total risk factor score of 4, making her high risk; however, as there is a possibility the patient will have dialysis catheter placed tomorrow, I am not going to initiate chemical prophylaxis at this time. 8. Code status is full. TIME SPENT: Sixty-five minutes was spent admitting this patient. [id number]/CPS #: [id number] ALLIE
[2018-11-04] MEDS: Sodium Citrate/Citric Acid* 15 ML UDC PO SCH ×4 (00:40→19:58)
[2018-11-04] MEDS: cloNIDine TAB* 0.1 MG PO SCH ×4 (00:41→19:58)
[2018-11-04] MEDS: Labetalol TAB* 300 MG PO SCH ×3 (00:41→20:05)
[2018-11-04] MEDS: LORazepam TAB(*) 0.5 MG PO PRN (00:41)
[2018-11-04 04:06] LABS: Urine Appearance Cloudy; Urine Bacteria 3+ (Absent); Urine Bilirubin Negative (Negative); Urine Blood 1+ (Negative); Urine Color Yellow; Urine Glucose 2+(150 mg/dL) (Negative); Urine Ketones Negative (Negative); Urine Nitrite Positive (Negative); Urine Protein 3+(>=500 mg/dL) (Negative); Urine Red Blood Cell 1+(3-5/hpf) (Absent); Urine Specific Gravity 1.012 (1.010-1.030); Urine Squamous Epithelial Cell Present (Absent); Urine Transitional Epithelial Present (Absent); Urine Urobilinogen Negative (Negative); Urine White Blood Cell 3+(>20/hpf) (Absent)
[2018-11-04] MEDS: Insulin LISPRO* 1 UNITS UNIT SUBCUT SCH ×4 (08:17→20:43)
[2018-11-04] MEDS: amLODIPine TAB* 5 MG PO SCH (08:30)
[2018-11-04] MEDS: Famotidine TAB* 20 MG PO SCH (08:31)
[2018-11-04] MEDS: Isosorbide Mononitrate ER TAB* 30 MG PO SCH (08:32)
[2018-11-04] MEDS: Terazosin CAP* 5 MG PO SCH (08:33)
[2018-11-04] MEDS ORDERED: Insulin GLARGINE(*) 1 UNITS UNIT SUBCUT SCH (09:00)
[2018-11-04 10:14] LABS: BUN/Creatinine Ratio 6.2 (8-20); Calcium 8.4 mg/dL (8.6-10.3); EGFR African American 5.6 (>60); EGFR Non-African American 4.6 (>60)
--- NOTE | 2018-11-04 10:30 | PN ---
Subjective Date of Service: 11/04/18 Interval History: Chest pain relieved by sitting up abou the same as yesterday. No SOB. Appetite OK. No bowel c/o. Objective Active Medications: Acetaminophen (Tylenol Tab*) 650 mg PO Q4H PRN PRN Reason: PAIN Amlodipine Besylate (Norvasc Tab*) 10 mg PO DAILY [facility] Last Admin: 11/04/18 08:30 Dose: 10 mg Citric Acid/Sodium Citrate (Bicitra*) 30 ml PO TID [facility] Last Admin: 11/04/18 08:33 Dose: 30 ml Clonidine HCl (Catapres Tab*) 0.2 mg PO TID [facility] Last Admin: 11/04/18 08:31 Dose: 0.2 mg Dextrose (D50w Syringe 50 Ml*) 12.5 gm IV PUSH .FOR FS < 60 - SS PRN PRN Reason: FS < 60 Famotidine (Pepcid Tab*) 20 mg PO EVERY OTHER DAY [facility]; Protocol Last Admin: 11/04/18 08:31 Dose: 20 mg Insulin Glargine (Lantus(*)) 20 units SUBCUT BID [facility] Last Admin: 11/04/18 09:15 Dose: Not Given Insulin Human Lispro (Humalog*) 0 units SUBCUT ACHS [facility]; Protocol Last Admin: 11/04/18 08:17 Dose: Not Given Isosorbide Mononitrate (Imdur Er Tab*) 30 mg PO DAILY [facility] Last Admin: 11/04/18 08:32 Dose: 30 mg Labetalol HCl (Trandate Tab*) 300 mg PO BID [facility] Last Admin: 11/04/18 08:32 Dose: 300 mg Lorazepam (Ativan Tab(*)) 0.5 mg PO BID PRN PRN Reason: ANXIETY Last Admin: 11/04/18 00:41 Dose: 0.5 mg Patiromer (Veltassa Powder*) 8.4 gm PO ONCE ONE Stop: 11/04/18 21:53 Terazosin HCl (Hytrin Cap*) 10 mg PO DAILY [facility] Last Admin: 11/04/18 08:33 Dose: 10 mg Vital Signs - 8 hr 11/04/18 11/04/18 11/04/18 03:04 03:11 07:18 Temperature 98.5 F 99.0 F Pulse Rate 83 84 Respiratory 17 16 22 Rate Blood Pressure 153/63 158/71 (mmHg) O2 Sat by Pulse 100 Oximetry 11/04/18 08:41 Temperature Pulse Rate Respiratory 16 Rate Blood Pressure (mmHg) O2 Sat by Pulse Oximetry Oxygen Devices in Use Now: None Appearance: Alert, partly up in bed. In good spirits. Looks comfortable. Eyes: No Scleral Icterus Neck: NL Appearance and Movements; NL JVP, No Thyroid Enlargement, Masses Respiratory: Symmetrical Chest Expansion and Respiratory Effort, Clear to Auscultation, Clear to Percussion Cardiovascular: NL Sounds; No Murmurs; No JVD, RRR, No Edema, - Extremities: No Edema, No Clubbing, Cyanosis, - Skin: No Rash or Ulcers, No Nodules or Sclerosis, - Neurological: Alert and Oriented x 3, NL Sensation Result Diagrams: 11/03/18 19:23 11/04/18 09:43 Additional Lab and Data: Lab Results 11/03/18 11/03/18 11/03/18 Range/Units 19:23 19:23 19:23 WBC 9.0 (3.5-10.8) 10^3/ul RBC 3.45 L (4.00-5.40) 10^6/ul Hgb 10.2 L (12.0-16.0) g/dl Hct 31 L (35-47) % MCV 88 (80-97) fL MCH 30 (27-31) pg MCHC 34 (31-36) g/dl RDW 18 H (10.5-15) % Plt Count 303 (150-450) 10^3/ul MPV 7.7 (7.4-10.4) fL Neut % (Auto) 74.2 % Lymph % (Auto) 11.6 % [place] % (Auto) 13.2 % Eos % (Auto) 0.4 % Baso % (Auto) 0.6 % Absolute Neuts (auto) 6.7 (1.5-7.7) 10^3/ul Absolute Lymphs (auto) 1.0 (1.0-4.8) 10^3/ul Absolute Monos (auto) 1.2 H (0-0.8) 10^3/ul Absolute Eos (auto) 0 (0-0.6) 10^3/ul Absolute Basos (auto) 0.1 (0-0.2) 10^3/ul Absolute Nucleated RBC 0 10^3/ul Nucleated RBC % 0.1 INR (Anticoag Therapy) 1.04 H (0.77-1.02) Sodium 135 (135-145) mmol/L Potassium 5.5 H (3.5-5.0) mmol/L Chloride 112 H (101-111) mmol/L Carbon Dioxide 15 L (22-32) mmol/L Anion Gap 8 (2-11) mmol/L BUN 51 H (6-24) mg/dL Creatinine 8.63 H (0.51-0.95) mg/dL Est GFR ( Amer) 5.6 (>60) Est GFR (Non-Af Amer) 4.6 (>60) BUN/Creatinine Ratio 5.9 L (8-20) Glucose 103 H (70-100) mg/dL Lactic Acid (0.5-2.0) mmol/L Calcium 8.7 (8.6-10.3) mg/dL Magnesium 1.9 (1.9-2.7) mg/dL Total Bilirubin 0.30 (0.2-1.0) mg/dL AST 13 (13-39) U/L ALT 17 (7-52) U/L Alkaline Phosphatase 149 H (34-104) U/L Troponin I 0.01 (<0.04) ng/mL B-Natriuretic Peptide (<=100) pg/mL Total Protein 6.4 (6.4-8.9) g/dL Albumin 3.4 (3.2-5.2) g/dL Globulin 3.0 (2-4) g/dL Albumin/Globulin Ratio 1.1 (1-3) TSH 1.25 (0.34-5.60) mcIU/mL 11/03/18 11/03/18 Range/Units 19:23 19:23 WBC (3.5-10.8) 10^3/ul RBC (4.00-5.40) 10^6/ul Hgb (12.0-16.0) g/dl Hct (35-47) % MCV (80-97) fL MCH (27-31) pg MCHC (31-36) g/dl RDW (10.5-15) % Plt Count (150-450) 10^3/ul MPV (7.4-10.4) fL Neut % (Auto) % Lymph % (Auto) % [place] % (Auto) % Eos % (Auto) % Baso % (Auto) % Absolute Neuts (auto) (1.5-7.7) 10^3/ul Absolute Lymphs (auto) (1.0-4.8) 10^3/ul Absolute Monos (auto) (0-0.8) 10^3/ul Absolute Eos (auto) (0-0.6) 10^3/ul Absolute Basos (auto) (0-0.2) 10^3/ul Absolute Nucleated RBC 10^3/ul Nucleated RBC % INR (Anticoag Therapy) (0.77-1.02) Sodium (135-145) mmol/L Potassium (3.5-5.0) mmol/L Chloride (101-111) mmol/L Carbon Dioxide (22-32) mmol/L Anion Gap (2-11) mmol/L BUN (6-24) mg/dL Creatinine (0.51-0.95) mg/dL Est GFR ( Amer) (>60) Est GFR (Non-Af Amer) (>60) BUN/Creatinine Ratio (8-20) Glucose (70-100) mg/dL Lactic Acid 1.2 (0.5-2.0) mmol/L Calcium (8.6-10.3) mg/dL Magnesium (1.9-2.7) mg/dL Total Bilirubin (0.2-1.0) mg/dL AST (13-39) U/L ALT (7-52) U/L Alkaline Phosphatase (34-104) U/L Troponin I (<0.04) ng/mL B-Natriuretic Peptide 302 H (<=100) pg/mL Total Protein (6.4-8.9) g/dL Albumin (3.2-5.2) g/dL Globulin (2-4) g/dL Albumin/Globulin Ratio (1-3) TSH (0.34-5.60) mcIU/mL Assess/Plan/Problems-Billing Assessment: - Patient Problems (1) ESRD (end stage renal disease) Current Visit: Yes Status: Acute Code(s): N18.6 - END STAGE RENAL DISEASE SNOMED Code(s): 73547799 Comment: I spoke to Dr. Xavier who will coordinate with Dr. Becker regarding dialysis. Repeat BMP pending. (2) Uremic pericarditis Current Visit: Yes Status: Acute Code(s): N18.9 - CHRONIC KIDNEY DISEASE, UNSPECIFIED; I32 - PERICARDITIS IN DISEASES CLASSIFIED ELSEWHERE SNOMED Code(s ): 616338753 Comment: No hemodynamic compromise. (3) Type II diabetes mellitus Current Visit: No Status: Acute Comment: Took glargine insulin once daily at home. Will start 10 U 11/05. (4) HTN (hypertension) Current Visit: Yes Status: Acute Code(s): I10 - ESSENTIAL (PRIMARY) HYPERTENSION SNOMED Code(s): 83066999 Comment: Continue labetalol, amlodipine.
[2018-11-04 10:37] LABS: Potassium 5.4 mmol/L (3.5-5.0)
[2018-11-04] MEDS ORDERED: Dexamethasone IV* 4 MG/ML 1 ML (4 MG) ONE (12:03)
[2018-11-04] MEDS ORDERED: Ondansetron INJ* 2 MG/ML VIAL ONE (12:03)
[2018-11-04] MEDS ORDERED: Propofol* 10 MG/ML 20 ML BTL ONE (12:03)
[2018-11-04] MEDS ORDERED: Lidocaine 2% PF * 5 ML VIAL ONE (12:03)
[2018-11-04] MEDS ORDERED: fentaNYL* 50 MCG/ML 2 ML VIAL (100 MCG VIAL) ONE (12:03)
[2018-11-04] MEDS ORDERED: Midazolam* 1 MG/ML 5 ML VIAL (5 MG) ONE (12:03)
[2018-11-04] MEDS ORDERED: Metoclopramide IV* 5 MG/ML 2 ML VIAL ONE (12:31)
[2018-11-04] MEDS ORDERED: ceFAZolin 2 GM in NS PREMIX(*) 2 GM/100 ML BAG IVPB ONE (12:31)
[2018-11-04] MEDS ORDERED: Heparin VIAL(*) 5000 UNITS/ML VIAL (FIVE THOUSAND) ONE ×2 (13:25→14:50)
[2018-11-04] MEDS ORDERED: Lidocaine 1% INJ* 10 MG/ML 30 ML SDV ONE (13:26)
[2018-11-04 14:52] LABS: Hepatitis B Surface Antigen Nonreactive (Nonreactive)
[2018-11-04] MEDS ORDERED: fentaNYL* 50 MCG/ML 2 ML VIAL (100 MCG VIAL) IV PRN (14:52)
[2018-11-04] MEDS ORDERED: Naloxone* 0.4 MG/ML 1 ML VIAL IV PRN (14:52)
[2018-11-04] MEDS ORDERED: Ondansetron INJ* 2 MG/ML VIAL IV PRN (14:52)
[2018-11-04 14:56] LABS: Hepatitis C Antibody High Reactive (Nonreactive)
[2018-11-04 15:34] LABS: Hepatitis B Surface AB Not Immune (Immune)
--- NOTE | 2018-11-04 20:02 | CONS ---
[facility] NEPHROLOGY CONSULTATION: DATE OF CONSULT: 11/04/18 REQUESTING PHYSICIAN: Dr. Barfield. HISTORY OF PRESENT ILLNESS: A 68-year-old female with a history of stage 5 chronic kidney disease, type 2 diabetes, hypertension, came in to the ER with complaints of chest pain that awakened her from sleep. The patient was complaining of chest pain when she was trying to take a deep breath and the pain was not reproducible on palpation. Also has been experiencing increased shortness of breath and lower extremity edema over the last 2 weeks. The patient also had a recent increase in her amlodipine dose. PAST MEDICAL HISTORY: 1. Hypertension. 2. 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 3. Hepatitis C. 4. Tinnitus. 5. Iron deficiency anemia and anemia of chronic disease. 6. History of right-sided breast cancer. 7. Dyslipidemia. 8. Stage 5 chronic kidney disease. PAST SURGICAL HISTORY: 1. Tubal ligation. 2. Right carpal tunnel release. 3. Left total knee replacement. 4. Right breast lumpectomy. 5. Bilateral cataract extractions. MEDICATION LIST: 1. Labetalol 300 mg p.o. b.i.d. 2. Ativan 0.5 mg p.o. b.i.d. p.r.n. anxiety. 3. Imdur 30 mg p.o. daily. 4. Lantus 20 units subcutaneous twice a day. 5. NovoLog sliding scale. 6. Vitamin D weekly. 7. Vitamin C. 8. Vitamin E. 9. Terazosin 10 mg p.o. daily. 10. Ranitidine 150 mg p.o. b.i.d. 11. Fish oil 1000 mg p.o. daily. 12. Mag oxide 250 mg p.o. daily. 13. Clonidine 0.2 mg p.o. t.i.d. 14. Amlodipine 10 mg p.o. daily. 15. Zinc 50 mg p.o. daily. ALLERGIES: ENALAPRIL, DILTIAZEM, and VERAPAMIL. FAMILY HISTORY: Mom of complications of alcoholism at the age of 38, had a history of diabetes. Father's history is unknown. SOCIAL HISTORY: The patient smoked her entire adult life until 2017. Former alcoholic, has been sober since 2011. REVIEW OF SYSTEMS: As described in the HPI. Other 14-point review of systems noted to be negative. PHYSICAL EXAM: Vitals: Temperature 98.4, pulse 66, respiratory rate 20, oxygen saturation 96%, blood pressure noted to be 128/54. HEENT: NCAT. Heart : S1, S2 present. Regular at the time of exam. No clear pericardial rub auscultated. Lungs: Decreased breath sounds bilaterally. No crackles auscultated. Abdomen: Soft, nontender. No rebound. No guarding. Extremities noted to have 1+ edema. Neuro: Alert, oriented. LABORATORY DATA: Sodium 136, potassium 5.4, chloride 112, CO2 16, BUN 53, creatinine 8.57, glucose noted to be 93. Hepatitis C noted to be positive. ASSESSMENT AND PLAN: 1. Acute kidney injury on chronic kidney disease stage 5 with worsening with symptoms of hyperkalemia, progressive uremia, and possible uremic pericarditis. The patient also noted to be volume overloaded and short of breath. The patient is getting a workup for her chest pain and pulmonary embolism evaluation with the primary team. 2. We will plan to initiate hemodialysis for management of her hyperkalemia, progressive uremia, and possible uremic pericarditis. The patient's chest pain at this time has improved. The patient is status post hemodialysis catheter placement with the surgical service. Appreciate their assistance. We will plan to dialyze the patient and initiate dialysis tomorrow. 3. The patient is interested in transitioning to home dialysis, specifically peritoneal dialysis and the patient was in the process of getting her peritoneal dialysis catheter placed. As the patient has developed acute symptoms prior to initiation, we will start with hemodialysis with eventual plan to transition the patient to PD. 4. Metabolic acidosis. Continue Bicitra. 5. Type 2 diabetes. Per the primary service. 6. Hypertension. We will continue current management. Blood pressure appears to be adequately controlled. [id number]/[facility] #: [id number] [facility] HAYES HOSPITALGabriela
[2018-11-04] MEDS: Acetaminophen TAB* 325 MG PO PRN (20:06)
[2018-11-04] MEDS: HYDROcodone/ACETAMIN 5-325 MG* 1 TAB PO PRN (21:06)
[2018-11-04] MEDS ORDERED: Patiromer POWDER* 8.4 GM PAK PO ONE (21:52)
--- NOTE | 2018-11-04 21:58 | OP ---
CC: Dr. De León; Dr. Becker * DATE OF OPERATION: 11/04/18 - ROOM #441 DATE OF : 52 SURGEON: Brian Xavier MD. PRE-OP DIAGNOSIS: Renal failure, need for hemodialysis catheter. POST-OP DIAGNOSIS: Renal failure, need for hemodialysis catheter. OPERATIVE PROCEDURE: Placement of hemodialysis catheter. INDICATIONS: Ms. Moreira is a patient who was originally scheduled for peritoneal dialysis catheter, but then she presented with uremic pericarditis and Dr. Becker has requested a hemodialysis catheter until such time that she can have the peritoneal catheter placed and have appropriate time for it to mature. DESCRIPTION OF PROCEDURE: The patient was brought to the operating room for placement of hemodialysis catheter. She understands the procedure and is agreeable to it. The left chest and neck and neck are prepped with antiseptic and draped in a sterile fashion. Local infiltrative anesthesia was administered. Posterior approach was used for internal jugular venipuncture. There was good blood return. The guidewire was passed under fluoroscopic guidance down into the SVC and a 36 cm catheter was chosen. It was tunneled in from below upward to the neck and passed with the peel-away introducer and down into the superior vena cava. Position of the catheter was confirmed on fluoroscopy and the catheter had good blood return and was flushed with saline solution and then the final heparin flush. The incisions were sutured with 5-0 Vicryl and 3-0 Prolene was used to secure the catheter at the skin. Sterile dressing was placed as well as Steri-Strips. She tolerated the procedure well. She was brought to the recovery in good condition. COMPLICATIONS: None. DRAINS: None. SPECIMEN: No pathologic specimen. COUNTS: Sponge and instrument counts were correct. ESTIMATED BLOOD LOSS: 100 mL. [id number]/[facility] #: [id number] [facility]
[2018-11-05] MEDS: LORazepam TAB(*) 0.5 MG PO PRN ×2 (04:45→21:20)
[2018-11-05] MEDS: HYDROcodone/ACETAMIN 5-325 MG* 1 TAB PO PRN (07:03)
[2018-11-05] MEDS: Labetalol TAB* 300 MG PO SCH ×2 (08:12→21:22)
[2018-11-05] MEDS: Isosorbide Mononitrate ER TAB* 30 MG PO SCH (08:12)
[2018-11-05] MEDS: Insulin GLARGINE(*) 1 UNITS UNIT SUBCUT SCH (08:12)
[2018-11-05] MEDS: Sodium Citrate/Citric Acid* 15 ML UDC PO SCH ×3 (08:12→21:19)
[2018-11-05] MEDS: cloNIDine TAB* 0.1 MG PO SCH ×3 (08:12→21:19)
[2018-11-05] MEDS: amLODIPine TAB* 5 MG PO SCH (08:13)
[2018-11-05] MEDS: Terazosin CAP* 5 MG PO SCH (08:13)
[2018-11-05] MEDS: Insulin LISPRO* 1 UNITS UNIT SUBCUT SCH ×4 (08:28→21:41)
--- NOTE | 2018-11-05 09:37 | PN ---
Subjective Date of Service: 11/05/18 Interval History: Some pain L neck related to dialysis catheter. No more chest pain. Objective Active Medications: Acetaminophen (Tylenol Tab*) 650 mg PO Q4H PRN PRN Reason: PAIN Last Admin: 11/04/18 20:06 Dose: 650 mg Hydrocodone Bitart/Acetaminophen ([place] 5-325 Tab*) 1 tab PO Q6H PRN PRN Reason: PAIN Stop: 11/05/18 16:00 Last Admin: 11/05/18 07:03 Dose: 1 tab Amlodipine Besylate (Norvasc Tab*) 10 mg PO DAILY [facility] Last Admin: 11/05/18 08:13 Dose: 10 mg Citric Acid/Sodium Citrate (Bicitra*) 30 ml PO TID [facility] Last Admin: 11/05/18 08:12 Dose: 30 ml Clonidine HCl (Catapres Tab*) 0.2 mg PO TID [facility] Last Admin: 11/05/18 08:12 Dose: 0.2 mg Dextrose (D50w Syringe 50 Ml*) 12.5 gm IV PUSH .FOR FS < 60 - SS PRN PRN Reason: FS < 60 Famotidine (Pepcid Tab*) 20 mg PO EVERY OTHER DAY [facility]; Protocol Last Admin: 11/04/18 08:31 Dose: 20 mg Insulin Glargine (Lantus(*)) 10 units SUBCUT DAILY [facility] Last Admin: 11/05/18 08:12 Dose: 10 unit Isosorbide Mononitrate (Imdur Er Tab*) 30 mg PO DAILY [facility] Last Admin: 11/05/18 08:12 Dose: 30 mg Labetalol HCl (Trandate Tab*) 300 mg PO BID [facility] Last Admin: 11/05/18 08:12 Dose: 300 mg Lorazepam (Ativan Tab(*)) 0.5 mg PO BID PRN PRN Reason: ANXIETY Last Admin: 11/05/18 04:45 Dose: 0.5 mg Terazosin HCl (Hytrin Cap*) 10 mg PO DAILY [facility] Last Admin: 11/05/18 08:13 Dose: 10 mg Vital Signs - 8 hr 11/05/18 11/05/18 11/05/18 02:05 03:39 04:45 Temperature 98.3 F Pulse Rate 81 Respiratory 17 18 18 Rate Blood Pressure 166/61 (mmHg) O2 Sat by Pulse 98 Oximetry 03/15/19 03/15/19 03/15/19 07:03 07:47 08:00 Temperature 98.0 F Pulse Rate 85 Respiratory 18 14 16 Rate Blood Pressure 155/49 (mmHg) O2 Sat by Pulse 100 Oximetry Oxygen Devices in Use Now: Nasal Cannula Appearance: Alert, partly up in bed. In good spirits. Looks comfortable. Eyes: No Scleral Icterus Respiratory: Symmetrical Chest Expansion and Respiratory Effort, Clear to Auscultation, Clear to Percussion Cardiovascular: NL Sounds; No Murmurs; No JVD, RRR, No Edema, - Skin: No Rash or Ulcers, No Nodules or Sclerosis, - Neurological: Alert and Oriented x 3, NL Sensation Result Diagrams: 11/03/18 19:23 11/04/18 09:43 Additional Lab and Data: Lab Results 11/03/18 11/03/18 11/03/18 Range/Units 19:23 19:23 19:23 WBC 9.0 (3.5-10.8) 10^3/ul RBC 3.45 L (4.00-5.40) 10^6/ul Hgb 10.2 L (12.0-16.0) g/dl Hct 31 L (35-47) % MCV 88 (80-97) fL MCH 30 (27-31) pg MCHC 34 (31-36) g/dl RDW 18 H (10.5-15) % Plt Count 303 (150-450) 10^3/ul MPV 7.7 (7.4-10.4) fL Neut % (Auto) 74.2 % Lymph % (Auto) 11.6 % [place] % (Auto) 13.2 % Eos % (Auto) 0.4 % Baso % (Auto) 0.6 % Absolute Neuts (auto) 6.7 (1.5-7.7) 10^3/ul Absolute Lymphs (auto) 1.0 (1.0-4.8) 10^3/ul Absolute Monos (auto) 1.2 H (0-0.8) 10^3/ul Absolute Eos (auto) 0 (0-0.6) 10^3/ul Absolute Basos (auto) 0.1 (0-0.2) 10^3/ul Absolute Nucleated RBC 0 10^3/ul Nucleated RBC % 0.1 INR (Anticoag Therapy) 1.04 H (0.77-1.02) Sodium 135 (135-145) mmol/L Potassium 5.5 H (3.5-5.0) mmol/L Chloride 112 H (101-111) mmol/L Carbon Dioxide 15 L (22-32) mmol/L Anion Gap 8 (2-11) mmol/L BUN 51 H (6-24) mg/dL Creatinine 8.63 H (0.51-0.95) mg/dL Est GFR ( Amer) 5.6 (>60) Est GFR (Non-Af Amer) 4.6 (>60) BUN/Creatinine Ratio 5.9 L (8-20) Glucose 103 H (70-100) mg/dL Lactic Acid (0.5-2.0) mmol/L Calcium 8.7 (8.6-10.3) mg/dL Magnesium 1.9 (1.9-2.7) mg/dL Total Bilirubin 0.30 (0.2-1.0) mg/dL AST 13 (13-39) U/L ALT 17 (7-52) U/L Alkaline Phosphatase 149 H (34-104) U/L Troponin I 0.01 (<0.04) ng/mL B-Natriuretic Peptide (<=100) pg/mL Total Protein 6.4 (6.4-8.9) g/dL Albumin 3.4 (3.2-5.2) g/dL Globulin 3.0 (2-4) g/dL Albumin/Globulin Ratio 1.1 (1-3) TSH 1.25 (0.34-5.60) mcIU/mL 11/03/18 11/03/18 Range/Units 19:23 19:23 WBC (3.5-10.8) 10^3/ul RBC (4.00-5.40) 10^6/ul Hgb (12.0-16.0) g/dl Hct (35-47) % MCV (80-97) fL MCH (27-31) pg MCHC (31-36) g/dl RDW (10.5-15) % Plt Count (150-450) 10^3/ul MPV (7.4-10.4) fL Neut % (Auto) % Lymph % (Auto) % [place] % (Auto) % Eos % (Auto) % Baso % (Auto) % Absolute Neuts (auto) (1.5-7.7) 10^3/ul Absolute Lymphs (auto) (1.0-4.8) 10^3/ul Absolute Monos (auto) (0-0.8) 10^3/ul Absolute Eos (auto) (0-0.6) 10^3/ul Absolute Basos (auto) (0-0.2) 10^3/ul Absolute Nucleated RBC 10^3/ul Nucleated RBC % INR (Anticoag Therapy) (0.77-1.02) Sodium (135-145) mmol/L Potassium (3.5-5.0) mmol/L Chloride (101-111) mmol/L Carbon Dioxide (22-32) mmol/L Anion Gap (2-11) mmol/L BUN (6-24) mg/dL Creatinine (0.51-0.95) mg/dL Est GFR ( Amer) (>60) Est GFR (Non-Af Amer) (>60) BUN/Creatinine Ratio (8-20) Glucose (70-100) mg/dL Lactic Acid 1.2 (0.5-2.0) mmol/L Calcium (8.6-10.3) mg/dL Magnesium (1.9-2.7) mg/dL Total Bilirubin (0.2-1.0) mg/dL AST (13-39) U/L ALT (7-52) U/L Alkaline Phosphatase (34-104) U/L Troponin I (<0.04) ng/mL B-Natriuretic Peptide 302 H (<=100) pg/mL Total Protein (6.4-8.9) g/dL Albumin (3.2-5.2) g/dL Globulin (2-4) g/dL Albumin/Globulin Ratio (1-3) TSH (0.34-5.60) mcIU/mL Microbiology and Other Data: Microbiology 11/04/18 03:50 Urine Culture - Final Urine Klebsiella Aerogenes Assess/Plan/Problems-Billing Assessment: - Patient Problems (1) ESRD (end stage renal disease) Current Visit: Yes Status: Acute Code(s): N18.6 - END STAGE RENAL DISEASE SNOMED Code(s): 64333141 Comment: Dialysis catheter placed 11/04/18r. K+ down to 5.4 11/04. First HD . Swting dialysis chair. Eventually will be switched to PD. (2) Uremic pericarditis Current Visit: Yes Status: Acute Code(s): N18.9 - CHRONIC KIDNEY DISEASE, UNSPECIFIED; I32 - PERICARDITIS IN DISEASES CLASSIFIED ELSEWHERE SNOMED Code(s ): 094759482 Comment: No hemodynamic compromise. Improved as of 11/05. D/C tele. (3) Type II diabetes mellitus Current Visit: No Status: Acute Comment: Took glargine insulin once daily at home. Started 10 U daily in AM on 11/05. Reduce Lispro SS 11/05 as patient seems sensitive to insulin. (4) HTN (hypertension) Current Visit: Yes Status: Acute Code(s): I10 - ESSENTIAL (PRIMARY) HYPERTENSION SNOMED Code(s): 24103319 Comment: Continue labetalol, amlodipine.
[2018-11-05 10:31] LABS: Albumin 2.9 g/dL (3.2-5.2); BUN/Creatinine Ratio 6.3 (8-20); Calcium 8.2 mg/dL (8.6-10.3); EGFR African American 5.8 (>60); EGFR Non-African American 4.8 (>60); Phosphorus 5.2 mg/dL (2.5-5.0)
[2018-11-05 10:46] LABS: Potassium 5.6 mmol/L (3.5-5.0)
[2018-11-05] MEDS ORDERED: Heparin DIALYSIS ONLY(*) 1,000 UNITS/ML VIAL DIALYSIS ONE (18:00)
[2018-11-05] MEDS: Acetaminophen TAB* 325 MG PO PRN (21:20)
[2018-11-05] MEDS ORDERED: NIFEdipine CAP* 10 MG PO ONE (22:34)
[2018-11-06] MEDS ORDERED: hydrALAZINE IV* 20 MG/ML VIAL IV SLOW PU PRN (03:40)
[2018-11-06] MEDS: Acetaminophen TAB* 325 MG PO PRN (04:04)
[2018-11-06] MEDS: LORazepam TAB(*) 0.5 MG PO PRN ×3 (04:05→23:52)
[2018-11-06 05:03] LABS: Urine Appearance Clear; Urine Bacteria 1+ (Absent); Urine Bilirubin Negative (Negative); Urine Blood 1+ (Negative); Urine Color Straw; Urine Glucose 1+(50 mg/dL) (Negative); Urine Ketones Negative (Negative); Urine Nitrite Negative (Negative); Urine Protein 2+(100 mg/dL) (Negative); Urine Red Blood Cell Trace(0-2/hpf) (Absent); Urine Specific Gravity 1.005 (1.010-1.030); Urine Squamous Epithelial Cell Present (Absent); Urine Urobilinogen Negative (Negative); Urine White Blood Cell Absent (Absent)
[2018-11-06] MEDS: Insulin LISPRO* 1 UNITS UNIT SUBCUT SCH ×4 (07:37→20:15)
[2018-11-06] MEDS: MinoXIDil TAB* 2.5 MG TAB PO SCH ×2 (07:48→09:05)
[2018-11-06] MEDS: amLODIPine TAB* 5 MG PO SCH (09:03)
[2018-11-06] MEDS: Labetalol TAB* 300 MG PO SCH ×2 (09:03→20:44)
[2018-11-06] MEDS: cloNIDine TAB* 0.1 MG PO SCH ×3 (09:03→20:45)
[2018-11-06] MEDS: Terazosin CAP* 5 MG PO SCH (09:03)
[2018-11-06] MEDS: Insulin GLARGINE(*) 1 UNITS UNIT SUBCUT SCH (09:03)
[2018-11-06] MEDS: Isosorbide Mononitrate ER TAB* 30 MG PO SCH (09:03)
[2018-11-06] MEDS: Famotidine TAB* 20 MG PO SCH (09:03)
[2018-11-06] MEDS: Sodium Citrate/Citric Acid* 15 ML UDC PO SCH ×3 (09:05→20:43)
--- NOTE | 2018-11-06 09:33 | PN ---
Subjective Date of Service: 11/06/18 Interval History: No chest pain. She is concerned about her HTN. Tolerated her first HD well but did have HTN during it and that upset her. Objective Active Medications: Acetaminophen (Tylenol Tab*) 650 mg PO Q4H PRN PRN Reason: PAIN Last Admin: 11/06/18 04:04 Dose: 650 mg Amlodipine Besylate (Norvasc Tab*) 10 mg PO DAILY [facility] Last Admin: 11/06/18 09:03 Dose: 10 mg Citric Acid/Sodium Citrate (Bicitra*) 30 ml PO TID [facility] Last Admin: 11/06/18 09:05 Dose: 30 ml Clonidine HCl (Catapres Tab*) 0.2 mg PO TID [facility] Last Admin: 11/06/18 09:03 Dose: 0.2 mg Dextrose (D50w Syringe 50 Ml*) 12.5 gm IV PUSH .FOR FS < 60 - SS PRN PRN Reason: FS < 60 Diltiazem HCl (Cardizem Cd Cap*) 240 mg PO DAILY [facility] Diltiazem HCl (Cardizem Tab*) 30 mg PO Q6HR [facility] Stop: 11/07/18 02:00 Famotidine (Pepcid Tab*) 20 mg PO EVERY OTHER DAY [facility]; Protocol Last Admin: 11/06/18 09:03 Dose: 20 mg Hydralazine HCl (Apresoline Iv*) 5 mg IV SLOW PU Q6H PRN PRN Reason: SYSTOLIC BP GREATER THAN: Last Admin: 11/06/18 03:57 Dose: 5 mg Insulin Glargine (Lantus(*)) 10 units SUBCUT DAILY [facility] Last Admin: 11/06/18 09:03 Dose: 10 unit Insulin Human Lispro (Humalog*) 0 units SUBCUT ACHS [facility]; Protocol Last Admin: 11/06/18 07:37 Dose: Not Given Isosorbide Mononitrate (Imdur Er Tab*) 30 mg PO DAILY [facility] Last Admin: 11/06/18 09:03 Dose: 30 mg Labetalol HCl (Trandate Tab*) 300 mg PO BID [facility] Last Admin: 11/06/18 09:03 Dose: 300 mg Lorazepam (Ativan Tab(*)) 0.5 mg PO Q6H PRN PRN Reason: ANXIETY Terazosin HCl (Hytrin Cap*) 10 mg PO DAILY [facility] Last Admin: 11/06/18 09:03 Dose: 10 mg Vital Signs - 8 hr 11/06/18 11/06/18 11/06/18 02:28 02:46 04:05 Temperature 98.9 F Pulse Rate 100 Respiratory 20 18 Rate Blood Pressure 181/59 (mmHg) O2 Sat by Pulse 92 94 Oximetry 11/06/18 11/06/18 11/06/18 04:46 07:20 07:38 Temperature 98.6 F Pulse Rate 93 Respiratory 16 16 18 Rate Blood Pressure 199/77 (mmHg) O2 Sat by Pulse 96 Oximetry 11/06/18 09:01 Temperature Pulse Rate Respiratory Rate Blood Pressure 193/71 (mmHg) O2 Sat by Pulse Oximetry Oxygen Devices in Use Now: None Appearance: Alert, partly up in bed. Anxious but otherwise looks comfortable. Eyes: No Scleral Icterus Respiratory: Symmetrical Chest Expansion and Respiratory Effort, Clear to Auscultation, Clear to Percussion Cardiovascular: NL Sounds; No Murmurs; No JVD, RRR, No Edema, - Extremities: No Edema, No Clubbing, Cyanosis, - Skin: No Rash or Ulcers, No Nodules or Sclerosis, - Neurological: Alert and Oriented x 3, NL Sensation Result Diagrams: 11/03/18 19:23 11/05/18 09:57 Additional Lab and Data: Lab Results 11/03/18 11/03/18 11/03/18 Range/Units 19:23 19:23 19:23 WBC 9.0 (3.5-10.8) 10^3/ul RBC 3.45 L (4.00-5.40) 10^6/ul Hgb 10.2 L (12.0-16.0) g/dl Hct 31 L (35-47) % MCV 88 (80-97) fL MCH 30 (27-31) pg MCHC 34 (31-36) g/dl RDW 18 H (10.5-15) % Plt Count 303 (150-450) 10^3/ul MPV 7.7 (7.4-10.4) fL Neut % (Auto) 74.2 % Lymph % (Auto) 11.6 % [place] % (Auto) 13.2 % Eos % (Auto) 0.4 % Baso % (Auto) 0.6 % Absolute Neuts (auto) 6.7 (1.5-7.7) 10^3/ul Absolute Lymphs (auto) 1.0 (1.0-4.8) 10^3/ul Absolute Monos (auto) 1.2 H (0-0.8) 10^3/ul Absolute Eos (auto) 0 (0-0.6) 10^3/ul Absolute Basos (auto) 0.1 (0-0.2) 10^3/ul Absolute Nucleated RBC 0 10^3/ul Nucleated RBC % 0.1 INR (Anticoag Therapy) 1.04 H (0.77-1.02) Sodium 135 (135-145) mmol/L Potassium 5.5 H (3.5-5.0) mmol/L Chloride 112 H (101-111) mmol/L Carbon Dioxide 15 L (22-32) mmol/L Anion Gap 8 (2-11) mmol/L BUN 51 H (6-24) mg/dL Creatinine 8.63 H (0.51-0.95) mg/dL Est GFR ( Amer) 5.6 (>60) Est GFR (Non-Af Amer) 4.6 (>60) BUN/Creatinine Ratio 5.9 L (8-20) Glucose 103 H (70-100) mg/dL Lactic Acid (0.5-2.0) mmol/L Calcium 8.7 (8.6-10.3) mg/dL Magnesium 1.9 (1.9-2.7) mg/dL Total Bilirubin 0.30 (0.2-1.0) mg/dL AST 13 (13-39) U/L ALT 17 (7-52) U/L Alkaline Phosphatase 149 H (34-104) U/L Troponin I 0.01 (<0.04) ng/mL B-Natriuretic Peptide (<=100) pg/mL Total Protein 6.4 (6.4-8.9) g/dL Albumin 3.4 (3.2-5.2) g/dL Globulin 3.0 (2-4) g/dL Albumin/Globulin Ratio 1.1 (1-3) TSH 1.25 (0.34-5.60) mcIU/mL 11/03/18 11/03/18 Range/Units 19:23 19:23 WBC (3.5-10.8) 10^3/ul RBC (4.00-5.40) 10^6/ul Hgb (12.0-16.0) g/dl Hct (35-47) % MCV (80-97) fL MCH (27-31) pg MCHC (31-36) g/dl RDW (10.5-15) % Plt Count (150-450) 10^3/ul MPV (7.4-10.4) fL Neut % (Auto) % Lymph % (Auto) % [place] % (Auto) % Eos % (Auto) % Baso % (Auto) % Absolute Neuts (auto) (1.5-7.7) 10^3/ul Absolute Lymphs (auto) (1.0-4.8) 10^3/ul Absolute Monos (auto) (0-0.8) 10^3/ul Absolute Eos (auto) (0-0.6) 10^3/ul Absolute Basos (auto) (0-0.2) 10^3/ul Absolute Nucleated RBC 10^3/ul Nucleated RBC % INR (Anticoag Therapy) (0.77-1.02) Sodium (135-145) mmol/L Potassium (3.5-5.0) mmol/L Chloride (101-111) mmol/L Carbon Dioxide (22-32) mmol/L Anion Gap (2-11) mmol/L BUN (6-24) mg/dL Creatinine (0.51-0.95) mg/dL Est GFR ( Amer) (>60) Est GFR (Non-Af Amer) (>60) BUN/Creatinine Ratio (8-20) Glucose (70-100) mg/dL Lactic Acid 1.2 (0.5-2.0) mmol/L Calcium (8.6-10.3) mg/dL Magnesium (1.9-2.7) mg/dL Total Bilirubin (0.2-1.0) mg/dL AST (13-39) U/L ALT (7-52) U/L Alkaline Phosphatase (34-104) U/L Troponin I (<0.04) ng/mL B-Natriuretic Peptide 302 H (<=100) pg/mL Total Protein (6.4-8.9) g/dL Albumin (3.2-5.2) g/dL Globulin (2-4) g/dL Albumin/Globulin Ratio (1-3) TSH (0.34-5.60) mcIU/mL Microbiology and Other Data: Microbiology 11/04/18 03:50 Urine Culture - Final Urine Klebsiella Aerogenes Assess/Plan/Problems-Billing Assessment: - Patient Problems (1) ESRD (end stage renal disease) Current Visit: Yes Status: Acute Code(s): N18.6 - END STAGE RENAL DISEASE SNOMED Code(s): 40603194 Comment: Dialysis catheter placed 11/04/18r. First HD 11/05. Awaiting dialysis chair. Eventually will be switched to PD. BMP 11/07. (2) Uremic pericarditis Current Visit: Yes Status: Acute Code(s): N18.9 - CHRONIC KIDNEY DISEASE, UNSPECIFIED; I32 - PERICARDITIS IN DISEASES CLASSIFIED ELSEWHERE SNOMED Code(s ): 291044230 Comment: No hemodynamic compromise. Improved as of 11/05. D/C tele. (3) Type II diabetes mellitus Current Visit: No Status: Acute Comment: Took glargine insulin once daily at home. Started 10 U daily in AM on 11/05. Reduce Lispro SS 11/05 as patient seems sensitive to insulin. No Lispro given 11/05, FS 108 11/06 7:34 AM. (4) HTN (hypertension) Current Visit: Yes Status: Acute Code(s): I10 - ESSENTIAL (PRIMARY) HYPERTENSION SNOMED Code(s): 16183682 Comment: Continue labetalol, amlodipine. One dose minoxidil given 11/06, will stop to avoid facial hair gowth. Pt states she awoke in the middle of the night with palpitations after getting diltiazem, also had lip swelling with enalapril. Diltiazem tablet 3 doses 11/06, start diltiazem CD 240 11/07 if no adverse reaction.
[2018-11-06] MEDS: Diltiazem TAB* 30 MG PO SCH ×4 (10:50→23:47)
[2018-11-07 05:45] LABS: BUN/Creatinine Ratio 5.2 (8-20); Calcium 7.9 mg/dL (8.6-10.3); EGFR African American 8.5 (>60)
[2018-11-07] MEDS: Insulin LISPRO* 1 UNITS UNIT SUBCUT SCH ×4 (07:35→22:00)
[2018-11-07] MEDS: Sodium Citrate/Citric Acid* 15 ML UDC PO SCH ×3 (08:07→20:12)
[2018-11-07] MEDS: Labetalol TAB* 300 MG PO SCH ×2 (08:07→20:13)
[2018-11-07] MEDS: Insulin GLARGINE(*) 1 UNITS UNIT SUBCUT SCH (08:07)
[2018-11-07] MEDS: LORazepam TAB(*) 0.5 MG PO PRN ×2 (08:08→23:38)
[2018-11-07] MEDS: Terazosin CAP* 5 MG PO SCH (08:08)
[2018-11-07] MEDS: cloNIDine TAB* 0.1 MG PO SCH ×3 (08:08→20:13)
[2018-11-07] MEDS: Isosorbide Mononitrate ER TAB* 30 MG PO SCH (08:09)
[2018-11-07] MEDS: Diltiazem CD CAP* 240 MG PO SCH (08:09)
[2018-11-07] MEDS: amLODIPine TAB* 5 MG PO SCH (08:09)
--- NOTE | 2018-11-07 08:12 | PN ---
Subjective Date of Service: 11/07/18 Interval History: Mild upper sternal/throat pain. Patient concerned about her HTN, her iron deficiency anemia, her HD. Objective Active Medications: Acetaminophen (Tylenol Tab*) 650 mg PO Q4H PRN PRN Reason: PAIN Last Admin: 11/06/18 04:04 Dose: 650 mg Amlodipine Besylate (Norvasc Tab*) 10 mg PO DAILY [facility] Last Admin: 11/06/18 09:03 Dose: 10 mg Citric Acid/Sodium Citrate (Bicitra*) 30 ml PO TID [facility] Last Admin: 11/06/18 20:43 Dose: 30 ml Clonidine HCl (Catapres Tab*) 0.2 mg PO TID [facility] Last Admin: 11/06/18 20:45 Dose: 0.2 mg Dextrose (D50w Syringe 50 Ml*) 12.5 gm IV PUSH .FOR FS < 60 - SS PRN PRN Reason: FS < 60 Diltiazem HCl (Cardizem Cd Cap*) 240 mg PO DAILY [facility] Famotidine (Pepcid Tab*) 20 mg PO EVERY OTHER DAY [facility]; Protocol Last Admin: 11/06/18 09:03 Dose: 20 mg Hydralazine HCl (Apresoline Iv*) 5 mg IV SLOW PU Q6H PRN PRN Reason: SYSTOLIC BP GREATER THAN: Last Admin: 11/06/18 03:57 Dose: 5 mg Insulin Glargine (Lantus(*)) 10 units SUBCUT DAILY [facility] Last Admin: 11/06/18 09:03 Dose: 10 unit Insulin Human Lispro (Humalog*) 0 units SUBCUT ACHS [facility]; Protocol Last Admin: 11/07/18 07:35 Dose: Not Given Isosorbide Mononitrate (Imdur Er Tab*) 30 mg PO DAILY [facility] Last Admin: 11/06/18 09:03 Dose: 30 mg Labetalol HCl (Trandate Tab*) 300 mg PO BID [facility] Last Admin: 11/06/18 20:44 Dose: 300 mg Lorazepam (Ativan Tab(*)) 0.5 mg PO Q6H PRN PRN Reason: ANXIETY Last Admin: 11/06/18 23:52 Dose: 0.5 mg Terazosin HCl (Hytrin Cap*) 10 mg PO DAILY [facility] Last Admin: 11/06/18 09:03 Dose: 10 mg Vital Signs - 8 hr 11/07/18 11/07/18 11/07/18 02:43 03:44 07:28 Temperature 97.5 F 97.5 F Pulse Rate 77 101 Respiratory 16 18 16 Rate Blood Pressure 151/61 197/75 (mmHg) O2 Sat by Pulse 96 92 Oximetry Oxygen Devices in Use Now: None Appearance: Alert, sitting up in bed. In good spirits, sl anxious. Looks comfortable. Eyes: No Scleral Icterus Respiratory: Symmetrical Chest Expansion and Respiratory Effort, Clear to Auscultation, Clear to Percussion Cardiovascular: RRR, No Edema, - - 1/6 systolic murmur across precordium Extremities: No Edema, No Clubbing, Cyanosis, - Skin: No Rash or Ulcers, No Nodules or Sclerosis, - Neurological: Alert and Oriented x 3, NL Sensation Result Diagrams: 11/03/18 19:23 11/07/18 05:07 Additional Lab and Data: Lab Results 11/03/18 11/03/18 11/03/18 Range/Units 19:23 19:23 19:23 WBC 9.0 (3.5-10.8) 10^3/ul RBC 3.45 L (4.00-5.40) 10^6/ul Hgb 10.2 L (12.0-16.0) g/dl Hct 31 L (35-47) % MCV 88 (80-97) fL MCH 30 (27-31) pg MCHC 34 (31-36) g/dl RDW 18 H (10.5-15) % Plt Count 303 (150-450) 10^3/ul MPV 7.7 (7.4-10.4) fL Neut % (Auto) 74.2 % Lymph % (Auto) 11.6 % [place] % (Auto) 13.2 % Eos % (Auto) 0.4 % Baso % (Auto) 0.6 % Absolute Neuts (auto) 6.7 (1.5-7.7) 10^3/ul Absolute Lymphs (auto) 1.0 (1.0-4.8) 10^3/ul Absolute Monos (auto) 1.2 H (0-0.8) 10^3/ul Absolute Eos (auto) 0 (0-0.6) 10^3/ul Absolute Basos (auto) 0.1 (0-0.2) 10^3/ul Absolute Nucleated RBC 0 10^3/ul Nucleated RBC % 0.1 INR (Anticoag Therapy) 1.04 H (0.77-1.02) Sodium 135 (135-145) mmol/L Potassium 5.5 H (3.5-5.0) mmol/L Chloride 112 H (101-111) mmol/L Carbon Dioxide 15 L (22-32) mmol/L Anion Gap 8 (2-11) mmol/L BUN 51 H (6-24) mg/dL Creatinine 8.63 H (0.51-0.95) mg/dL Est GFR ( Amer) 5.6 (>60) Est GFR (Non-Af Amer) 4.6 (>60) BUN/Creatinine Ratio 5.9 L (8-20) Glucose 103 H (70-100) mg/dL Lactic Acid (0.5-2.0) mmol/L Calcium 8.7 (8.6-10.3) mg/dL Magnesium 1.9 (1.9-2.7) mg/dL Total Bilirubin 0.30 (0.2-1.0) mg/dL AST 13 (13-39) U/L ALT 17 (7-52) U/L Alkaline Phosphatase 149 H (34-104) U/L Troponin I 0.01 (<0.04) ng/mL B-Natriuretic Peptide (<=100) pg/mL Total Protein 6.4 (6.4-8.9) g/dL Albumin 3.4 (3.2-5.2) g/dL Globulin 3.0 (2-4) g/dL Albumin/Globulin Ratio 1.1 (1-3) TSH 1.25 (0.34-5.60) mcIU/mL 11/03/18 11/03/18 Range/Units 19:23 19:23 WBC (3.5-10.8) 10^3/ul RBC (4.00-5.40) 10^6/ul Hgb (12.0-16.0) g/dl Hct (35-47) % MCV (80-97) fL MCH (27-31) pg MCHC (31-36) g/dl RDW (10.5-15) % Plt Count (150-450) 10^3/ul MPV (7.4-10.4) fL Neut % (Auto) % Lymph % (Auto) % [place] % (Auto) % Eos % (Auto) % Baso % (Auto) % Absolute Neuts (auto) (1.5-7.7) 10^3/ul Absolute Lymphs (auto) (1.0-4.8) 10^3/ul Absolute Monos (auto) (0-0.8) 10^3/ul Absolute Eos (auto) (0-0.6) 10^3/ul Absolute Basos (auto) (0-0.2) 10^3/ul Absolute Nucleated RBC 10^3/ul Nucleated RBC % INR (Anticoag Therapy) (0.77-1.02) Sodium (135-145) mmol/L Potassium (3.5-5.0) mmol/L Chloride (101-111) mmol/L Carbon Dioxide (22-32) mmol/L Anion Gap (2-11) mmol/L BUN (6-24) mg/dL Creatinine (0.51-0.95) mg/dL Est GFR ( Amer) (>60) Est GFR (Non-Af Amer) (>60) BUN/Creatinine Ratio (8-20) Glucose (70-100) mg/dL Lactic Acid 1.2 (0.5-2.0) mmol/L Calcium (8.6-10.3) mg/dL Magnesium (1.9-2.7) mg/dL Total Bilirubin (0.2-1.0) mg/dL AST (13-39) U/L ALT (7-52) U/L Alkaline Phosphatase (34-104) U/L Troponin I (<0.04) ng/mL B-Natriuretic Peptide 302 H (<=100) pg/mL Total Protein (6.4-8.9) g/dL Albumin (3.2-5.2) g/dL Globulin (2-4) g/dL Albumin/Globulin Ratio (1-3) TSH (0.34-5.60) mcIU/mL Microbiology and Other Data: Microbiology 11/04/18 03:50 Urine Culture - Final Urine Klebsiella Aerogenes Assess/Plan/Problems-Billing Assessment: - Patient Problems (1) ESRD (end stage renal disease) Current Visit: Yes Status: Acute Code(s): N18.6 - END STAGE RENAL DISEASE SNOMED Code(s): 98247060 Comment: Dialysis catheter placed 11/04/18r. First HD 11/05. Awaiting dialysis chair. Eventually will be switched to PD. K+ 4.0 on 11/07/18, CO2 28. Phos-calcium product 40. (2) Uremic pericarditis Current Visit: Yes Status: Acute Code(s): N18.9 - CHRONIC KIDNEY DISEASE, UNSPECIFIED; I32 - PERICARDITIS IN DISEASES CLASSIFIED ELSEWHERE SNOMED Code(s ): 993910743 Comment: No hemodynamic compromise. Improved as of 11/05. D/C tele. (3) Type II diabetes mellitus Current Visit: No Status: Acute Comment: Took glargine insulin once daily at home. Started 10 U daily in AM on 11/05. Reduce Lispro SS 11/05 as patient seems sensitive to insulin. No Lispro given 11/05, FS 108 11/06 7:34 AM. (4) HTN (hypertension) Current Visit: Yes Status: Acute Code(s): I10 - ESSENTIAL (PRIMARY) HYPERTENSION SNOMED Code(s): 74589967 Comment: Continue labetalol, amlodipine. One dose minoxidil given 11/06, will stop to avoid facial hair gowth. Pt states she awoke in the middle of the night with palpitations after getting diltiazem, also had lip swelling with enalapril. Diltiazem tablet 3 doses given 11/06, started diltiazem CD 240 on . (5) Iron deficiency anemia Current Visit: No Status: Acute Code(s): D50.9 - IRON DEFICIENCY ANEMIA, UNSPECIFIED SNOMED Code(s): 80700381 Comment: Last had IV iron therapy 09/2018, 5 times since 01/2018. Known multiple small bowel AVM's. I spoke with Dr. Prakash who will fup on previous plans for referral for double balloon enteroscopy.
[2018-11-08] MEDS: Insulin LISPRO* 1 UNITS UNIT SUBCUT SCH ×3 (07:38→17:58)
[2018-11-08] MEDS: Sodium Citrate/Citric Acid* 15 ML UDC PO SCH ×2 (07:53→15:02)
[2018-11-08] MEDS: Isosorbide Mononitrate ER TAB* 30 MG PO SCH (07:54)
[2018-11-08] MEDS: amLODIPine TAB* 5 MG PO SCH (07:54)
[2018-11-08] MEDS: cloNIDine TAB* 0.1 MG PO SCH ×2 (07:54→15:02)
[2018-11-08] MEDS: Labetalol TAB* 300 MG PO SCH (07:54)
[2018-11-08] MEDS: Famotidine TAB* 20 MG PO SCH (07:54)
[2018-11-08] MEDS: Terazosin CAP* 5 MG PO SCH (07:54)
[2018-11-08] MEDS: Diltiazem CD CAP* 240 MG PO SCH (07:55)
[2018-11-08] MEDS: Insulin GLARGINE(*) 1 UNITS UNIT SUBCUT SCH (11:25)
[2018-11-08] MEDS ORDERED: Heparin DIALYSIS ONLY(*) 1,000 UNITS/ML VIAL DIALYSIS ONE (12:00)
[2018-11-08 17:55] VITALS: BP 170/58
--- NOTE | 2018-11-09 00:05 | DS ---
CC: Dr. Becker; Dr. Xavier * DISCHARGE SUMMARY: DATE OF ADMISSION: 11/03/18 DATE OF DISCHARGE: 11/08/18 PROVIDER: Ritu Tyler NP ATTENDING PHYSICIAN: Dr. Jolie Pereira * (dictated by Ritu Tyler NP) PRIMARY CARE PROVIDER: Dr. De León. PRIMARY DIAGNOSES: 1. Chronic kidney disease, stage 5. 2. Hyperkalemia. 3. Metabolic acidosis. 4. Uremic pericarditis. SECONDARY DIAGNOSES: 1. Diabetes. 2. Hypertension. 3. History of hepatitis C. 4. Iron deficiency anemia of chronic disease. 5. History of right-sided breast cancer. STUDIES COMPLETED WHILE IN THE HOSPITAL: She had a chest x-ray on 11/03/18. Radiologist's impression: Cardiomegaly. No active cardiopulmonary disease. She had an electrocardiogram on 11/03/18, which showed sinus rhythm at a rate of 78. She had a V/Q scan on 11/04/18, low probability of pulmonary embolism. She had a repeat chest x-ray on 11/04/18 after placement of dialysis catheter, lines, and tubes as dual lumen central venous catheter noted from the left internal jugular vein approach with tip overlying the cavoatrial junction. DISCHARGE MEDICATIONS: New home medications: 1. Bicitra 30 mL p.o. t.i.d. 2. Diltiazem 240 mg p.o. daily. Continued home medications. 1. Labetalol 300 mg p.o. b.i.d. 2. Lorazepam 0.5 mg p.o. b.i.d. p.r.n. 3. Isosorbide 30 mg p.o. daily. 4. Lantus 20 units subcu b.i.d. 5. NovoLog 2 to 5 units subcu t.i.d. 6. Vitamin D 50,000 units p.o. weekly. 7. Vitamin C 500 mg p.o. daily. 8. Vitamin E 400 units p.o. daily. 9. Terazosin 10 mg p.o. daily. 10. Ranitidine 150 mg p.o. b.i.d. 11. [place]-3 fatty acids 1000 mg p.o. daily. 12. Magnesium oxide 250 mg p.o. daily. 13. Clonidine 0.2 mg p.o. t.i.d. 14. Amlodipine 10 mg p.o. daily. 15. Zinc 50 mg p.o. daily. 16. Acetaminophen 650 mg q.4 hours as needed for pain. HISTORY OF PRESENT ILLNESS AND HOSPITAL COURSE: Ms. Moreira is a 68-year-old female with a history of chronic stage 4 to 5 kidney disease, type 2 diabetes, hypertension, who presented to the emergency room with complaints of chest pain. She states that she was in usual state of health up until about 5:30 this morning of 11/03/18 when she awoke from sleep complaining of severe chest pain. The pain was worse when lying flat and trying to take a deep breath. She says the pain was not reproducible by palpation to the chest. She did feel short of breath with the chest discomfort. She also reports that she had shortness of breath that predated her chest discomfort. She reports that over the last couple of weeks prior to admission, she felt very fatigued when climbing a flight of stairs or walking. She also noted to have increased lower extremity edema over the past 2 weeks. This is since her primary care provider increased her amlodipine dose. Due to the chest pain, Hospital Medicine was asked to see her and evaluate her for admission. The patient was admitted for evaluation of her chest pain. During the hospitalization, she was also seen by Dr. Becker from Nephrology, who recommended the patient start on hemodialysis due to her worsening kidney disease and also recommended that the patient be started on Kayexalate and Bicitra. He recommended that the patient have hemodialysis catheter placed, which she had placed during this admission and was started on dialysis. She did have dialysis today on the day of discharge, 11/08/18. Throughout the evaluation, her chest pain did improve after dialysis and thought that her chest pain was related to uremic pericarditis. The patient was hospitalized waiting for chair placement for hemodialysis, which she was given a chair placement, and will start Thursday, , and Thursday hemodialysis. At this time, Ms. Moreira is stable for discharge home. REVIEW OF SYSTEMS: The patient denies any fever or chills. Denies any nausea, vomiting, or diarrhea. Denies any chest pain or shortness of breath. Denies any weakness or fatigue. PHYSICAL EXAM: General: At this time, Ms. Moreira is alert and oriented sitting on the edge of the bed. She is in no acute distress. HEENT: Head is atraumatic, normocephalic. Eyes: EOMs are intact. Sclerae anicteric and not pale. Oral mucosa appeared to be moist. Neck is supple. Lungs are clear to auscultation bilaterally. No wheezes, rales, or rhonchi. Cardiac: S1, S2. Regular rate and rhythm. No murmurs, rubs, or gallops. Abdomen is soft and nontender. Bowel sounds are present x4. Extremities: Pedal pulses are +1 bilaterally. She is able to move all 4 extremities with 5/5 strength. Neurologic: She is awake, alert, and oriented x3. Speech is clear. Thought process is intact. There are no gross focal deficits. Skin is intact. She does have Steri-Strips intact to her left neck. There is no drainage noted. Vital Signs: Blood pressure 170/58, temperature was 98.7, heart rate 89, respirations 18, O2 saturation 96%. DISCHARGE PLAN: Ms. Moreira will be discharged home. Activity as tolerated. She is to continue on a renal diet. 1. End-stage renal disease. The patient should continue with hemodialysis Thursday, , and Thursday as scheduled per Nephrology. She is to follow up with Dr. Becker as an outpatient. She should continue on Bicitra 30 mL p.o. t.i.d. until further recommendations by Dr. Becker. 2. Chest pain. I suspect her chest pain is likely related to uremic pericarditis. It did improve and resolve after initiation of hemodialysis. The patient has had no further episodes of chest pain. 3. Hypertension. The patient was started on Cardizem CD during this hospitalization. She does list an allergy of palpitations with the CARDIZEM ___ __ this is an adverse reaction. Her blood pressure was high throughout her hospitalization. I suspect this is related to her end-stage kidney disease. She will continue on clonidine, amlodipine, diltiazem, and labetalol as previously prescribed. She should follow up with her primary care provider for further management of her hypertension. 4. Diabetes. She should continue on Lantus and NovoLog as previously prescribed. 5. Acid reflux. She should continue on Zantac 150 mg p.o. b.i.d. 6. Iron deficiency anemia. The patient has known multiple small bowel AVMs. Case was discussed with Dr. Prakash during this hospitalization, who will follow up on previous plans for referral to double balloon enteroscopy in [place]. The patient should call Dr. Prakash's office for a followup appointment. FOLLOWUP: The patient should follow up with her primary care provider in 1 to 3 days. The patient should follow up with Dr. Wright from Nephrology; she needs to call for an appointment. She should call Dr. Xavier's office in the a.m. for an appointment to have sutures removed. She is to report to Dialysis Thursday, , and Thursday for hemodialysis treatments. The patient was instructed to return to the emergency room for any chest pain, shortness of breath, any fever, chills, nausea, or vomiting, or any other concerning symptoms. This is a summarization of her hospitalization. If further details are needed, please see the entire medical record. TIME SPENT: Time spent on this discharge was 60 minutes, greater than half that time was spent [id number] with the patient discussing discharge plans and instructions. CONDITION ON DISCHARGE: Stable. DISPOSITION: To home. I have discussed this with my attending, Dr. Jolie Pereira. She is in agreement with my plan. RITU TYLER, MARK [id number]/[facility]PS #: [id number] MTDGabriela
== END 2018-11-08 21:53 | disposition home or self-care (01) | DRG 673 ==
LOC: ED 18:34 → MEDTELE 22:14 → OBSVTOIN 11-04 12:08 → MEDTELE 11-05 15:46
PROVIDERS: ADMIT Hospitalist; ATTEND Internal Medicine
PROC: 5A1D70Z Performance of Urinary Filtration, Intermittent, Less than 6 Hours Per Day (ICD-10-PCS; 2018-11-03)
PROC: B518ZZA Fluoroscopy of Superior Vena Cava, Guidance (ICD-10-PCS; 2018-11-04)
PROC: 0JH63XZ Insertion of Tunneled Vascular Access Device into Chest Subcutaneous Tissue and Fascia, Percutaneous Approach (ICD-10-PCS; principal; 2018-11-04 12:15)
PROC: 5A1D70Z Performance of Urinary Filtration, Intermittent, Less than 6 Hours Per Day (ICD-10-PCS; 2018-11-08)
DX: I12.0 Hypertensive chronic kidney disease with stage 5 chronic kidney disease or end stage renal disease (principal); N18.6 End stage renal disease; N17.9 Acute kidney failure, unspecified; E87.2 Acidosis; I32 Pericarditis in diseases classified elsewhere; T82.848A Pain due to vascular prosthetic devices, implants and grafts, initial encounter; E11.22 Type 2 diabetes mellitus with diabetic chronic kidney disease; E87.5 Hyperkalemia; D50.9 Iron deficiency anemia, unspecified; E11.40 Type 2 diabetes mellitus with diabetic neuropathy, unspecified; E11.21 Type 2 diabetes mellitus with diabetic nephropathy; D63.1 Anemia in chronic kidney disease; H93.19 Tinnitus, unspecified ear; E78.5 Hyperlipidemia, unspecified; K21.9 Gastro-esophageal reflux disease without esophagitis; Z96.652 Presence of left artificial knee joint; F10.21 Alcohol dependence, in remission; Z79.4 Long term (current) use of insulin; Z85.3 Personal history of malignant neoplasm of breast; Z86.19 Personal history of other infectious and parasitic diseases; Z79.899 Other long term (current) drug therapy; Z88.8 Allergy status to other drugs, medicaments and biological substances; Z81.1 Family history of alcohol abuse and dependence; Z83.3 Family history of diabetes mellitus; Z87.891 Personal history of nicotine dependence
CPT/HCPCS: 36415; 71045; 71046; 76000; 78582; 80048; 80053; 81003; 81015; 82040; 83605; 83735; 83880; 84100; 84238; 84443; 84484; 85025; 85379; 85610; 86480; 86706; 86803; 87077; 87086; 87186; 87340; 90935; 93005; 99285; A9270-GY; A9540; A9558; C1750; G0257; J0360; J0690; J1100; J1644; J2250; J2405; J2704; J2765; J3010

== ENCOUNTER 2018-11-27 16:02 | Observation (INO) | payer MEDICARE ==
--- NOTE | 2018-11-27 14:32 | HP ---
HISTORY AND PHYSICAL: DATE OF ADMISSION: 11/27/18 PRIMARY CARE PROVIDER: Dr. Conchita De León. ADMITTING PHYSICIAN: Jaya Devries MD CHIEF COMPLAINT: Shortness of breath, severe dyspnea on exertion, and extreme fatigue. HISTORY OF PRESENT ILLNESS: Kristal Moreira is a 68-year-old female with past medical history of end-stage renal disease, recently started on hemodialysis on Thursday, , and Thursday, insulin dependent diabetes mellitus, hepatitis C, iron deficiency anemia, and anemia of chronic kidney disease, breast cancer status post lumpectomy, hyperlipidemia, cardiomegaly, diabetic retinopathy, nephrotic syndrome. She was recently admitted 11/03/18 to 11/08/18 with intermittent chest pains/pressure and got a temporary dialysis catheter placed at that time, initiated on hemodialysis. 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 She woke up the morning of admission around 2 a.m. with shortness of breath and dry cough and because of these symptoms, she presented to the [facility] Emergency Room rather than her scheduled dialysis session. She did have an episode of what she says was acute bronchitis, treated with Z-Kenton back in July and has had chills since then. She saw Dimitrios Stephenson 2 days ago and the chest x-ray was ordered and because there were some crackles at the left lower lobe, Z-Kenton was empirically started. Her chest x-ray since has shown right lung infiltrate and small bilateral pleural effusions. She also followed with her major gifts manager Dr. Mooney the day prior to admission who thought she did not have decompensated CHF, but ordered an echocardiogram to reevaluate her ejection fraction, valvular function, as such for pericardial effusion. The chest x-ray had shown markedly enlarged cardiomegaly, slightly progressed from prior. Of note, her last echocardiogram was 01/14/17 which showed grade 1 diastolic dysfunction, EF of 55% to 60%. Workup in the emergency room has revealed troponin of 0.02 and BNP of 436, increased from 302 on 11/03/18. She was satting as low as 91% on room air and placed on supplemental oxygen. CRP was 8.5. She had no leukocytosis or fevers here. She was given Levaquin and then cefepime in the emergency room for suspicion for possible pneumonia and referred to hospitalist service for admission. As I have assessed that she would benefit greatly from her hemodialysis session today rather than a 4-day delay until Thursday. She is being actually discharged to medical office building for her dialysis session and then will be directly admitted after that for further workup of her dyspnea on exertion. PAST MEDICAL HISTORY: End-stage renal disease, nephrotic syndrome, insulin- dependent diabetes mellitus, hypertension, hepatitis C, iron-deficiency anemia of chronic disease, right breast cancer status post lumpectomy, hyperlipidemia, tinnitus, small bowel AVMs for which she has been recommended to follow up with [facility] for double balloon enteroscopy and she follows with Dr. Prakash as well locally. PAST SURGICAL HISTORY: Left total knee replacement, right breast lumpectomy, cataracts bilaterally, tubal ligation and right carpal tunnel release. MEDICATIONS: Include: 1. Amlodipine 10 mg daily. She says she takes it twice a day. It is possible that she takes 5 twice a day. All records from outpatient and discharge summaries and her pharmacy says she should be taking a total of 10 daily. 2. Ranitidine 150 mg p.o. b.i.d. 3. Ativan 0.5 mg p.o. b.i.d. p.r.n. 4. Imdur 30 mg p.o. daily. 5. Lantus 10 units subcutaneous daily though she more recently has been skipping some doses given episodes of hypoglycemia. 6. Cholecalciferol units p.o. weekly. 7. Tylenol 650 mg p.o. q.4 hours p.r.n. 8. Diltiazem 240 mg daily. 9. Labetalol 300 mg p.o. b.i.d. 10. Terazosin 10 mg p.o. daily. 11. Clonidine 0.2 mg t.i.d. ALLERGIES: HYDRALAZINE (palpitations), VERAPAMIL (palpitations), ENALAPRIL ( swelling of face, lips, and throat). FAMILY HISTORY: Mother at age 38, she says from complications from diabetes. Father at age 54 from a heart attack. She has 2 brothers, one of whom has had a heart attack. SOCIAL HISTORY: She is a former smoker her entire life until 2017. She is a former alcoholic, sober since 2012. 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 Her medical surrogate is her brother Kwame Monique. She desires to be a full code. Denies drug use. REVIEW OF SYSTEMS: A complete 14-point review of systems is negative except as per HPI. She does state that she drove her neighbor last week to a doctor's appointment and he did have a cough. She attests to some chest pressure still chronically since last admission, though it has improved. Her diet consistent mostly of vegetables. She has been trying to incorporate some more lean meats. She avoids the high salt diet or other sweats or desserts. She has orthopnea. PHYSICAL EXAMINATION GENERAL APPEARANCE: No acute distress. VITAL SIGNS: Temperature 98.6, heart rate 85, respiratory rate initially 24, initially satting 91% to 93%, currently 98% on 2 L. Blood pressure 178/66. HEENT: Normocephalic and atraumatic. Pupils equally round and reactive to light. Extraocular motions intact. No scleral icterus. Moist mucous membranes. LUNGS: With rales at the bilateral bases. No rhonchi or wheezing. CARDIAC: There is a 2/6 systolic ejection murmur, loudest left lower sternal border. Regular rate and rhythm. ABDOMEN: Soft, nontender, nondistended. EXTREMITIES: Warm and well perfused. There is 1 to 2+ pitting edema bilaterally in the lower extremities. NEUROLOGIC: Cranial nerves II through XII grossly intact. Moving all extremities. Sensation intact. DIAGNOSTIC STUDIES/LAB DATA: White count 8.7, hemoglobin 9.6, hematocrit 29, platelets 350. INR 0.99. Sodium 136, potassium 3.0, chloride 96, carbon dioxide 30. BUN 20, creatinine 4.93, glucose 167, lactic acid 0.6, magnesium 1.9. Total bili 0.3, AST 82, ALT 65, alk phos 65. Troponin 0.02, CRP 8.51, BNP 436, albumin 3.4. ESR pending. Imaging: None, but chest x-ray from day prior to admission showed right lung infiltrate with small bilateral pleural effusions, new and markedly enlarged cardiac silhouette slightly increased in size, possibly a pericardial effusion cannot be ruled out. EKG demonstrates normal sinus rhythm, T-wave flat or biphasic or slightly inverted anterolaterally, normal axis, normal intervals, no ST elevations or depressions. ASSESSMENT AND PLAN: Kristal Moreira is a 68-year-old female with past medical history of end-stage renal disease, recently started on hemodialysis, insulin- dependent diabetes mellitus, hypertension, hepatitis C, iron deficiency anemia of chronic disease, presenting with increased fatigue, dyspnea on exertion over the last week and chest x-ray concerning for possible right infiltrate and new small bilateral pleural effusions. Of note, symptoms have not significantly improved despite the initiation of Z-Kenton 2 days ago. She is status post Levaquin and now cefepime in the emergency room. I think a large component of her shortness of breath is also related to her end-stage renal disease. She does have evidence of volume overload on my exam today and seeing us, there is no longer any emergent inpatient hemodialysis over the weekend. I think it is very important that she be discharged from the emergency room first to get her hemodialysis today and take off as much fluid as they can. I do not believe her dry weight is necessarily correct as she is just being started on dialysis over the last 3 weeks and she is still very symptomatic with evidence of volume overload. After dialysis she will be directly admitted to the hospital for further evaluation of her heart and treatment for potential pneumonia. We will plan to continue ceftriaxone and azithromycin, get strep and legionella urine antigens though of note she has been on antibiotics for 2 days now already. Follow up blood cultures, get a sputum sample if obtainable although she is non- productively coughing. For her hypertension, continue her amlodipine 10 daily, her diltiazem 240 daily, her clonidine 0.2 mg p.o. t.i.d. and her Imdur 30 daily and her terazosin 10 mg daily. For gastroesophageal reflux disease, continue her ranitidine p.o. b.i.d. For her insulin-dependent diabetes, put her on a sliding scale insulin. She has been attesting to some hypoglycemic events and only intermittently taking her 10 units of glargine, consider starting that tomorrow after observing for 1 day. Also continue her labetalol for hypertension. Continue her vitamin D supplementation. For assessment of her severe cardiomegaly and concern for possible pericardial effusion, assessment of her ejection fraction, valvular function and potential wall motion abnormalities, get echocardiogram sooner than tomorrow. Troponin here was negative. EKG without ischemic changes. She is a full code. She can eat heart-healthy, renal diet. Her medical surrogate is her brother Kwame Monique. She is being admitted to observation status after her hemodialysis. [id number]/[facility] #: [id number] MTDD
[2018-11-27] MEDS ORDERED: Acetaminophen TAB* 325 MG PO PRN (16:19)
[2018-11-27] MEDS ORDERED: Dextrose 50% Syringe 50 ML* 25 GM/50 ML SYRINGE IV PUSH PRN (16:23)
[2018-11-27] MEDS: Insulin LISPRO* 1 UNITS UNIT SUBCUT SCH ×2 (17:01→21:23)
[2018-11-27 19:08] LABS: Influenza A Molecular NEGATIVE (Negative); Influenza B Molecular NEGATIVE (Negative)
[2018-11-27] MEDS: cloNIDine TAB* 0.1 MG PO SCH ×2 (19:58→21:29)
[2018-11-27] MEDS: guaiFENesin ER TAB 600 MG PO SCH (19:59)
[2018-11-27] MEDS: Isosorbide Mononitrate ER TAB* 30 MG PO SCH (19:59)
[2018-11-27] MEDS: LORazepam TAB(*) 0.5 MG PO PRN (19:59)
[2018-11-27] MEDS ORDERED: Insulin GLARGINE(*) 1 UNITS UNIT SUBCUT ONE (21:20)
[2018-11-27] MEDS: Labetalol TAB* 300 MG PO SCH (21:31)
[2018-11-28] MEDS: Insulin LISPRO* 1 UNITS UNIT SUBCUT SCH ×4 (07:31→20:28)
[2018-11-28] MEDS: cefTRIAXone(*) 1 GM in NS 0.9% 50 ML* 50 ML IVPB SCH (07:55)
[2018-11-28] MEDS: Azithromycin TAB* 250 MG PO SCH (07:57)
[2018-11-28] MEDS: cloNIDine TAB* 0.1 MG PO SCH ×3 (07:57→20:25)
[2018-11-28] MEDS: Diltiazem CD CAP* 240 MG PO SCH (07:57)
[2018-11-28] MEDS: guaiFENesin ER TAB 600 MG PO SCH ×2 (07:57→20:25)
[2018-11-28] MEDS: Labetalol TAB* 300 MG PO SCH ×2 (07:58→20:24)
[2018-11-28] MEDS: amLODIPine TAB* 5 MG PO SCH (07:58)
[2018-11-28] MEDS: Terazosin CAP* 5 MG PO SCH (07:58)
--- NOTE | 2018-11-28 14:00 | ECHO ---
Patient: ELDA COTTO [facility] Rec#: [id number] : 1950 Date: 11/28/2018 Age: 68y Height: 165 cm / 65.0 in Weight: 82 kg / 180.7 lbs Sex: F BSA: 1.89 Room#: [facility] Admit Date#: 11/27/2018 Type: Inpatient Referring: Jaya Devries Reading: Sreedhar Mooney MD Cat Breeder: Neha Renteria,RDCS,RDMS CC: Conchita De León MD Transthoracic Echocardiogram Indication: Cardiomegaly BP: 149/58 HR: 72 Rhythm: NSR Findings History: Severe dyspnea on exertion, ESRD, DM, HTN, HLD, edema, smoker, former ETOH Technical Comments: The study quality is good. Left Ventricle: The left ventricular chamber size is normal. Moderate concentric left ventricular hypertrophy is observed. The estimated ejection fraction is 55-60%. There is no consistent Doppler evidence of clinically significant diastolic dysfunction. Left Atrium: The left atrium is moderately dilated. Right Ventricle: The right ventricular chamber size and systolic function are within normal limits. Right Atrium: The right atrial cavity size is normal. Aortic Valve: The aortic valve is trileaflet. There is no evidence of aortic valve thickening. Systolic excursion of the aortic valve is normal. There is no evidence of aortic regurgitation. There is no evidence of aortic stenosis. Mitral Valve: The mitral valve leaflets appear normal. There is a trace of mitral regurgitation. There is no evidence of mitral stenosis. Tricuspid Valve: The tricuspid valve leaflets are normal. There is moderate tricuspid regurgitation. There is evidence of moderate pulmonary hypertension. Pulmonic Valve: The pulmonic valve appears normal. There is mild to moderate pulmonic regurgitation. Pericardium: There is a moderate pericardial effusion. There are no signs of significant hemodynamic compromise. There is a circumferential pericardial effusion. Aorta: The aortic root appears normal. There is no dilatation of the aortic arch. Pulmonary Artery: The main pulmonary artery appears normal. Summary: There was not any prior study for comparison. Conclusions The left ventricular chamber size is normal. Moderate concentric left ventricular hypertrophy is observed. The estimated ejection fraction is 55-60%. There is no consistent Doppler evidence of clinically significant diastolic dysfunction. The left atrium is moderately dilated. There is a trace of mitral regurgitation. There is moderate tricuspid regurgitation. There is evidence of moderate pulmonary hypertension. There is mild to moderate pulmonic regurgitation. There is a moderate pericardial effusion.PLAX 2.0CM (LV), PSAX @ PAPS 0.7CM (anterolateral) and 2.1cm (inferior), A4C 2.0cm (RA) and 1.7cm (LV lateral) respiratory variation MV 17% and LVOT 2% There are no signs of significant hemodynamic compromise. There is a circumferential pericardial effusion. Measurements Name Value Normal Range RVIDd (AP) 2D 2.7 cm (0.9 - 2.6) RVDdMajor (2D) 3.4 cm (2.2 - 4.4) RAd ISD 4CH 4.6 cm (3.4 - 4.9) RA (A4C)W 3.2 cm (2.9 - 4.6) IVSd (2D) 1.2 cm (0.6 - 1) LVPWd (2D) 1.5 cm (0.6 - 1) LVIDd (2D) 4.5 cm (3.6 - 5.4) LVIDs (2D) 2.8 cm - LV FS (2D) 39 % (25 - 45) Aortic Annulus 2 cm (1.4 - 2.6) Ao root diameter (2D) 2.6 cm (2.1 - 3.5) Ascending Ao 2.8 cm (2.1 - 3.4) Aortic arch 2.3 cm (1.8 - 3.4) LA dimension (AP) 2D 4.2 cm (2.3 - 3.8) LAd ISD 4CH 6 cm (2.9 - 5.3) LA ISD 4CH W 4.8 cm (2.5 - 4.5) Name Value Normal Range LA ESV BP (A/L) index 48 ml/m2 - Name Value Normal Range MV E-wave Vmax 1.4 m/sec - MV deceleration time 190 msec - MV A-wave Vmax 1.1 m/sec - MV E:A ratio 1.3 ratio - P. vein S-wave Vmax 0.7 m/sec - P. vein D-wave Vmax 0.6 m/sec - P. vein S:D Vmax ratio 1.2 ratio - P. vein A-wave duration 153 msec - LV septal e' Vmax 0.07 m/sec - LV lateral e' Vmax 0.06 m/sec - LV E:e' septal ratio 21 ratio - LV E:e' lateral ratio 24 ratio - Name Value Normal Range AV Vmax 1.9 m/sec - AV VTI 41 cm - AV peak gradient 14 mmHg - AV mean gradient 7 mmHg - LVOT Vmax 1.6 m/sec - LVOT VTI 32 cm - LVOT peak gradient 10 mmHg - LVOT mean gradient 5 mmHg - AISHWARYA Vmax 0.7 m/sec - Name Value Normal Range MV Vmax 1.3 m/sec - MV VTI 38 cm - MV peak gradient 7 mmHg - MV mean gradient 3 mmHg - MV PHT 57 msec - MVA (PHT) 3.9 cm2 - Name Value Normal Range TR Vmax 3.1 m/sec - TR peak gradient 38 mmHg - RAP 8 mmHg - RVSP 46 mmHg - IVC diameter 2.5 cm - Name Value Normal Range PV Vmax 1.2 m/sec - PV peak gradient 6 mmHg -
[2018-11-28] MEDS: Isosorbide Mononitrate ER TAB* 30 MG PO SCH (14:15)
[2018-11-28] MEDS ORDERED: Insulin GLARGINE(*) 1 UNITS UNIT SUBCUT SCH (18:00)
--- NOTE | 2018-11-28 18:01 | PN ---
Subjective Date of Service: 11/28/18 Interval History: Pt felt much better after her HD yesterday and was back to at rest. Afebrile, no acute events over night ECHO today showed moderately large circumferential pericardial, widest 2.1cm but without concern for hemodynamic compromise. Objective Active Medications: Acetaminophen (Tylenol Tab*) 650 mg PO Q4H PRN PRN Reason: PAIN Amlodipine Besylate (Norvasc Tab*) 10 mg PO DAILY [facility] Last Admin: 11/28/18 07:58 Dose: 10 mg Azithromycin (Zithromax Tab*) 250 mg PO DAILY [facility] Last Admin: 11/28/18 07:57 Dose: 250 mg Clonidine HCl (Catapres Tab*) 0.2 mg PO TID [facility] Last Admin: 11/28/18 14:15 Dose: 0.2 mg Dextrose (D50w Syringe 50 Ml*) 12.5 gm IV PUSH .FOR FS < 60 - SS PRN PRN Reason: FS < 60 Diltiazem HCl (Cardizem Cd Cap*) 240 mg PO DAILY [facility] Last Admin: 11/28/18 07:57 Dose: 240 mg Guaifenesin (Mucinex*) 600 mg PO BID [facility] Last Admin: 11/28/18 07:57 Dose: 600 mg Ceftriaxone Sodium 1 gm/ (Sodium Chloride) 50 mls @ 200 mls/hr IVPB Q24H [facility] Last Admin: 11/28/18 07:55 Dose: 200 mls/hr Insulin Glargine (Lantus(*)) 10 units SUBCUT Q24H [facility] Insulin Human Lispro (Humalog*) 0 units SUBCUT ACHS [facility]; Protocol Last Admin: 11/28/18 17:20 Dose: Not Given Isosorbide Mononitrate (Imdur Er Tab*) 30 mg PO DAILY@1400 [facility] Last Admin: 11/28/18 14:15 Dose: 30 mg Labetalol HCl (Trandate Tab*) 300 mg PO BID [facility] Last Admin: 11/28/18 07:58 Dose: 300 mg Lorazepam (Ativan Tab(*)) 0.5 mg PO BID PRN PRN Reason: ANXIETY Last Admin: 11/27/18 19:59 Dose: 0.5 mg Terazosin HCl (Hytrin Cap*) 10 mg PO DAILY [facility] Last Admin: 04/07/19 07:58 Dose: 10 mg Vital Signs - 8 hr 11/28/18 11/28/18 11/28/18 11:35 12:56 15:00 Temperature 98.4 F 98.0 F Pulse Rate 70 77 Respiratory 18 18 Rate Blood Pressure 138/59 149/51 (mmHg) O2 Sat by Pulse 91 81 91 Oximetry Oxygen Devices in Use Now: Nasal Cannula Appearance: NAD Eyes: No Scleral Icterus Ears/Nose/Mouth/Throat: NL Teeth, Lips, Gums Neck: NL Appearance and Movements; NL JVP, Trachea Midline Respiratory: Symmetrical Chest Expansion and Respiratory Effort, - - slight rales at base. Cardiovascular: NL Sounds; No Murmurs; No JVD Extremities: - - trace pitting edema in LE b/l, improved from yesterday. Skin: No Rash or Ulcers Neurological: Alert and Oriented x 3, NL Sensation Lines/Tubes/Other Access: Clean, Dry and Intact Other Access - HD temp cath Nutrition: Taking PO's Assess/Plan/Problems-Billing Assessment: 68 yo female PMH ESRD recently started on HD 1 month ago, IDDM, Hepatitis C, anemia p/w worsening shortness of breath and fatigue, with clinical evidence of volume overload. Was discharged from ED to not miss her Thursday dialysis then direct admitted her. As outpatient she was started on azithromycin 2 days prior to admission empirically and her CXR did have some infiltrate on the right along with small b/l pleural effusions. ECHO showed moderately large circumferential pericardial effusion (up to 2.1cm widest). On CFTX, azithro. #Hypoxic Respiratory Failure, improved. - thought secondary to volume overload (2+_LE edema, b/l small pleural effusions, BNP 436 up from prior. [place] much better after HD 11/27. - She is back to RA at rest but quickly desat'ed to 81% with ambulating 6-10 steps today. Continue antibiotics empirically for right chest infiltrate. No fever or leukocytosis though did get antibiotics prior to admission x 2 days azithromycin. - Urine Strep and Legionella negative. - Rapid flu ordered but does not look like obtained yet - BCx NGTDx1 day. #ESRD - HD TuThSat, could consider getting extra session Thursday if still hypoxic with ambulation. Recheck labs in AM. #Pericardial Effusion - talked to Dr. Mooney, her outpatient cooperative education director who had recently seen her and had been wanting outpatient ECHO eval to update him with the results obtained inpatient. He wanted to get a limited ECHO to evaluate the effusion prior to discharge. - etiology likely related to ESRD/uremia. Could consider diagnostic(to rule out malignancy)/therapeutic tap if progress but Dr. Mooney does not recommend at this time. Could consider SHAYY, RF, HIV to rule out other etiolgies. #IDDM - only intermittently taking her Lantus 10U at home and refusing SSI coverage here given her reported episodes of hypoglycemia with her worsening kidney funciton. - lantus 10U, SSI #anemia 2/2 ID #HTN - continue labetalol 300mg BID, dilt 240mg, isosrobide 30mg DIET: heart healthy, carbohydrate consistent, RENAL CODE: FULL
[2018-11-28] MEDS: LORazepam TAB(*) 0.5 MG PO PRN (20:25)
--- NOTE | 2018-11-28 21:12 | PN ---
Progress Note - Progress Note Date of Service: 11/28/18 Note: Pt had been refusing short acting insulin. Lispro d/c'd
[2018-11-29 07:28] LABS: ABS Basophils 0 10^3/ul (0-0.2); ABS Eosinophils 0.1 10^3/ul (0-0.6); ABS Lymphocytes 0.9 10^3/ul (1.0-4.8); ABS Neutrophils 5.2 10^3/ul (1.5-7.7); ABS Nucleated RBC 0 10^3/ul; Eosinophil % 1.8 %; Hematocrit 29 % (33-41); Hemoglobin 9.9 g/dL (12.0-16.0); Lymphocyte % 12.5 %; Mean Corpuscular HGB Conc 34 g/dL (31-36); Mean Corpuscular Hemoglobin 30 pg (27-31); Mean Corpuscular Volume 88 fL (80-97); Mean Platelet Volume 7.9 fL (7.4-10.4); Nucleated Red Blood Cells % 0.1; Platelet Count 322 10^3/uL (150-450); Red Blood Count 3.34 10^6 /uL (3.70-4.87); Red Cell Distribution Width 16 % (10.5-15); White Blood Count 7.3 10^3/uL (3.5-10.8)
[2018-11-29 07:46] LABS: BUN/Creatinine Ratio 3.6 (8-20); Calcium 9.1 mg/dL (8.6-10.3); EGFR African American 10.4 (>60); EGFR Non-African American 8.6 (>60); Potassium 3.5 mmol/L (3.5-5.0)
[2018-11-29] MEDS: Azithromycin TAB* 250 MG PO SCH (08:34)
[2018-11-29] MEDS: amLODIPine TAB* 5 MG PO SCH (08:34)
[2018-11-29] MEDS: Labetalol TAB* 300 MG PO SCH ×2 (08:34→21:14)
[2018-11-29] MEDS: Diltiazem CD CAP* 240 MG PO SCH (08:34)
[2018-11-29] MEDS: cefTRIAXone(*) 1 GM in NS 0.9% 50 ML* 50 ML IVPB SCH (08:34)
[2018-11-29] MEDS: guaiFENesin ER TAB 600 MG PO SCH ×2 (08:35→21:14)
[2018-11-29] MEDS: cloNIDine TAB* 0.1 MG PO SCH ×3 (08:35→21:14)
[2018-11-29] MEDS: Terazosin CAP* 5 MG PO SCH (08:35)
[2018-11-29] MEDS ORDERED: predniSONE TAB* 10 MG PO SCH (11:00)
[2018-11-29] MEDS: Isosorbide Mononitrate ER TAB* 30 MG PO SCH (15:18)
--- NOTE | 2018-11-29 15:37 | ECHO ---
Patient: ELDA COTTO [facility] Rec#: [id number] : 1950 Date: 11/29/2018 Age: 68y Height: 163 cm / 64.2 in Weight: 82 kg / 180.7 lbs Sex: F BSA: 1.88 Room#: [facility] Admit Date#: 11/27/2018 Type: Inpatient Referring: Muna Mohan MD Reading: Latrell Ayoub MD Lab Animal Technologist: Neha Renteria RD,RDMS Transthoracic Echocardiogram Indication: Pericardial Effusion BP: 162/58 HR: 78 Rhythm: NSR Findings History: LIMITED ECHO to evalualte pericardial effusion. Severe YOUNG, ESRD, DM, HTN, HLD, edema Technical Comments: The study quality is good. Left Ventricle: Global left ventricular wall motion and contractility are within normal limits. There is normal left ventricular systolic function. The estimated ejection fraction is 55-60%. Pericardium: There is a moderate pericardial effusion. There are no signs of significant hemodynamic compromise. Conclusions There is a moderate pericardial effusion. There are no signs of significant hemodynamic compromise. Global left ventricular wall motion and contractility are within normal limits. Compared to study of 11/27/18 there is no change
[2018-11-29] MEDS ORDERED: Insulin GLARGINE(*) 1 UNITS UNIT SUBCUT SCH (18:00)
[2018-11-29] MEDS: LORazepam TAB(*) 0.5 MG PO PRN (21:14)
[2018-11-29] MEDS ORDERED: Insulin LISPRO* 1 UNITS UNIT SUBCUT ONE (22:02)
--- NOTE | 2018-11-29 22:07 | PN ---
Hospitalist Progress Note Cross coverage note. Called for glucose over 450. Appears pt was started on prednisone today? Has history of refusing lispro, so sliding scale had been discontinued. Pt only amenable to 2 u short-acting insulin right now. Noted that she did receive a higher dose of long-acting insulin today, which should also help ( previously was on 10u daily, but received 15u this afternoon). Will hold off of IVF given ESRD.
[2018-11-30] MEDS ORDERED: Insulin LISPRO* 1 UNITS UNIT SUBCUT ONE (00:40)
--- NOTE | 2018-11-30 01:38 | DS ---
CC: Dr. De León; Dr. Becker; Dr. Estrella; Dr. Mooney * DISCHARGE SUMMARY: DATE OF ADMISSION: 11/27/18 DATE OF DISCHARGE: 11/29/18 PRIMARY CARE PROVIDER: Dr. De León. SKEIN SPOOLER: Dr. Becker. GENERAL SURGEON: Dr. Estrella. DISCHARGE DIAGNOSES: 1. Uremic pericarditis. 2. Acute hypoxic respiratory failure secondary to fluid overload. SECONDARY DIAGNOSES: 1. Type 2 diabetes. 2. End-stage renal disease on hemodialysis. 3. Nephrotic syndrome. 4. Hypertension. 5. Hepatitis C. 6. Iron deficiency anemia/anemia of chronic disease. 7. Right breast cancer, status post lumpectomy. 8. Hyperlipidemia. 9. Small bowel arteriovenous malformation. 10. Status post left total knee replacement. 11. Status post right breast lumpectomy. 12. Status post cataract surgery bilaterally. MEDICATIONS AT THE TIME OF DISCHARGE: 1. Acetaminophen 650 mg p.o. q.4 hours p.r.n. pain or fever. 2. Amlodipine 10 mg p.o. daily. 3. Cholecalciferol 150,000 units p.o. weekly. 4. Clonidine 0.2 mg p.o. t.i.d. 5. Cardizem CD 240 mg p.o. daily. 6. Imdur 30 mg p.o. daily. 7. Labetalol 300 mg p.o. b.i.d. 8. Lorazepam 0.5 mg p.o. b.i.d. as needed for anxiety. 9. Ranitidine 150 mg p.o. b.i.d. 10. Terazosin 10 mg p.o. at bedtime. Medication Change: 1. Her Lantus was increased to 15 units subcutaneously daily. New Medications: 1. Prednisone 30 mg p.o. daily. HOSPITAL COURSE: Mrs. Moreira is a 68-year-old lady with past medical history as stated above who presented to the emergency room on 11/27/18 with complaints of shortness of breath, especially on exertion, associated with fatigue. The patient had been admitted to [facility] from 11/03/18 to 11/08/18. On that admission, the patient had presented with complaints of chest pain and shortness of breath. It was felt that the patient had CKD stage IV to V transitioning into end-stage renal disease secondary to her diabetes and hypertension. She was seen by Nephrology, and the recommendation was for hemodialysis catheter placement and she was started on hemodialysis on the day of discharge. The impression at that time was the patient's chest pain was secondary to uremic pericarditis. The patient states that with dialysis she was still having shortness of breath and dry cough. For more details about her presentation, I refer you to her history and physical. 1. Acute hypoxemic respiratory failure. The patient had improvement of her shortness of breath after hemodialysis and was on room air at rest, but required supplemental oxygen with exertion. This is felt to be secondary to volume overload as despite going to dialysis the patient still has bilateral lower extremity edema, bilateral small pleural effusion. She will require 2 L of oxygen at rest and 4 L with exertion. She maintained an oxygen saturation greater than 90%. The patient has no complaints of chest pain at this time. No calf tenderness, no recent trips, no recent falls. On her prior admission, she had a V/Q scan. That was a low probability scan for pulmonary embolus. So , the impression is that her symptoms at this point are secondary to her fluid overload. The patient was scheduled to have a peritoneal dialysis catheter placed on 12/01 and this surgery will be canceled at this point as the patient cannot lay flat. The plan is to continue her hemodialysis and remove more fluid, and when she is optimized, Dr. Becker will contact Dr. Estrella to reschedule the peritoneal dialysis catheter placement. I called Dr. Estrella and he is aware that the procedure needs to be canceled. 2. Uremic pericarditis. On her prior admission, the impression was the patient 's chest pain was secondary to uremic pericarditis. This admission, she had a transthoracic echocardiogram done and the echo showed ejection fraction of 55% to 60% with moderate TR, moderate pulmonary hypertension, [id number] pulmonary regurgitation, and a moderate pericardial effusion measuring 2.1 cm in the inferior views with no signs of significant hemodynamic compromise. The case was discussed by Dr. Devries with Dr. Mooney, who is the patient's outpatient package lift operator. He had recently seen her as outpatient and was planning to have an echo done as outpatient. He recommended a limited echo to be done prior to discharge and it shows her pericardial effusion is unchanged, not progressing. The etiology is likely uremic, and if it continues to progress , she may require further workup with SHAYY, rheumatoid factor, HIV serology, or even therapeutic tap to rule out malignancy since the patient does have a history of breast cancer. At this point, the case was discussed with Dr. Becker and his recommendation was for prednisone 30 mg daily for her pericarditis. He will follow her up closely as outpatient. She will be seen by him tomorrow with dialysis and he will decide when to taper the steroids. 3. Type 2 diabetes. The patient was taking her Lantus sporadically at home and refused sliding scale coverage while in the hospital as she was concerned with possible hypoglycemia. I explained that with steroids, her sugars are going to be higher now, so I am increasing her Lantus to 15 units and she will need close monitoring as outpatient with her primary care doctor to adjust her insulin as needed. Her last A1c in our system last year was 7.4, so this could also be repeated as outpatient. If it continues to be difficult to manage, she could be referred to Endocrinology since the issue seemed that with the worsening of her kidney function, her diabetes became harder to manage. 4. Hypertension. Has been controlled throughout the hospital stay and we will continue her current regimen of amlodipine, clonidine, diltiazem, Imdur, labetalol, and terazosin. The patient had improvement on her symptoms and she is felt well enough to be discharged home. She was thought to be stable for discharge. PHYSICAL EXAMINATION: Vital Signs: Temperature 98.0, heart rate 79, respiratory rate 16, oxygen saturation is 93% on 2 L nasal cannula, blood pressure is 141/54. General: The patient is a pleasant elderly lady, sitting up in bed, in no acute distress. CVS: Normal S1, S2. Regular rate and rhythm. Chest: Breath sounds bilaterally diminished in bases, but no added sounds. The patient has hemodialysis catheter through the left anterior chest wall. Abdomen is obese, soft. Bowel sounds present. Extremities: Bilateral lower extremities moderate pitting edema. Neuro: She is alert and oriented x3. Able to move all 4 extremities. DIET: Consistent carb, renal diet. ACTIVITIES: As tolerated. DISPOSITION: To home. STATUS WHILE IN THE HOSPITAL: Observation. CONDITION AT THE TIME OF DISCHARGE: Guarded. Please keep in mind this a summarized version of this patient's hospital stay. If you need more information, please free to call me at [phone] or please obtain the full medical record. The patient will need close followup with her PCP and Dr. Becker as outpatient to continue to adjust her medications and decide when she can be transitioned to peritoneal dialysis. She will also need followup with Dr. Mooney to make sure her pericardial effusion is improving. TIME SPENT: Approximately 45 minutes was spent to complete this discharge. [id number]/[facility] #: [id number] ALLIE
[2018-11-30 04:24] VITALS: BP 116/65
--- NOTE | 2018-12-01 09:48 | PN ---
Hospitalist Progress Note Date of Service: 12/01/18 HOSPITALIST ADDENDUM Called by patient because she cannot tolerate prednisone due to GI upset. States her dyspnea is much improved and she doesn't feel she needs it. I explained the reasoning for the medication, the risks of the pericarditis/ pericardial fluid increase. She understands and states she cannot take it. She was advised to return to ED if her symptoms return/worsen. I contacted Dr Becker's office. She already has an appt to seen him on 12/07. I also left a message for Dr Ramsey to reach out to the patient if there are any other alternatives for treatment.
== END 2018-11-30 05:50 | disposition home or self-care (01) ==
LOC: INTOOBSV 16:02 → MED 16:02
PROVIDERS: ADMIT Internal Medicine; ATTEND Internal Medicine
DX: I12.0 Hypertensive chronic kidney disease with stage 5 chronic kidney disease or end stage renal disease (principal); E11.22 Type 2 diabetes mellitus with diabetic chronic kidney disease; N18.6 End stage renal disease; Z99.2 Dependence on renal dialysis; I32 Pericarditis in diseases classified elsewhere; J96.01 Acute respiratory failure with hypoxia; E87.70 Fluid overload, unspecified; B19.20 Unspecified viral hepatitis C without hepatic coma; D50.9 Iron deficiency anemia, unspecified; Z85.3 Personal history of malignant neoplasm of breast; Z90.12 Acquired absence of left breast and nipple; E78.5 Hyperlipidemia, unspecified; Q27.33 Arteriovenous malformation of digestive system vessel; Z98.49 Cataract extraction status, unspecified eye; F17.210 Nicotine dependence, cigarettes, uncomplicated; F10.11 Alcohol abuse, in remission
CPT/HCPCS: 36415; 80048; 82947; 85025; 87899; 93306; 93308; 96365; 96372; A9270-GY; G0378; J0696; J7512

== ENCOUNTER → 2018-12-15 05:29 | Day surgery (SDC) | payer MEDICARE ==
[~2018-12-15 05:29] MED LIST changes: -Buffered Lidocaine 1% SYR 3ML* 3 ML/SYR SYRINGE INTRADERM ONE; +Buffered Lidocaine 1% SYRIN* 1 ML/SYRINGE INTRADERM ONE; +Bupivacaine 0.25% W/EPI* 10 ML SDV ONE; +Cisatracurium* 2 MG/ML MDV 5 ML ONE; +DiMENhydriNATE IV* 50 MG/ML VIAL IV PUSH PRN; +Etomidate* 2 MG/ML 10 ML VIAL ONE; +Famotidine TAB* 20 MG ONE; +Famotidine TAB* 20 MG PO ONE; +Glycopyrrolate IV* 0.2 MG/ML 1 ML VIAL ONE; +Heparin DIALYSIS ONLY(*) 1,000 UNITS/ML VIAL ONE; +Lidocaine 2% PF * 5 ML VIAL ONE; +Metoclopramide IV* 5 MG/ML 2 ML VIAL IV SLOW PU ONE; +Metoclopramide IV* 5 MG/ML 2 ML VIAL ONE; +Midazolam* 1 MG/ML 2 ML VIAL (2 MG) ONE; +NS 0.45% 1000 ML BAG* 1,000 ML IV SCH; +Naloxone* 0.4 MG/ML 1 ML VIAL IV PRN; +Neostigmine Methylsulfate* 3 MG/3 ML SYRINGE ONE; +Ondansetron INJ* 2 MG/ML VIAL ONE; +Propofol* 10 MG/ML 20 ML BTL ONE; +ceFAZolin 2 GM in NS PREMIX(*) 2 GM/100 ML BAG IVPB ONE; +fentaNYL* 50 MCG/ML 2 ML VIAL (100 MCG VIAL) IV PRN; +fentaNYL* 50 MCG/ML 2 ML VIAL (100 MCG VIAL) ONE; +oxyCODONE/Acetamin 5/325 MG* TAB ONE; +oxyCODONE/Acetamin 5/325 MG* TAB PO PRN
[2018-12-15 06:47] LABS: Hematocrit 33 % (33-41); Hemoglobin 10.9 g/dL (12.0-16.0); Mean Corpuscular HGB Conc 33 g/dL (31-36); Mean Corpuscular Hemoglobin 29 pg (27-31); Mean Corpuscular Volume 87 fL (80-97); Mean Platelet Volume 7.7 fL (7.4-10.4); Platelet Count 337 10^3/uL (150-450); Red Blood Count 3.78 10^6 /uL (3.70-4.87); Red Cell Distribution Width 16 % (10.5-15); White Blood Count 6.9 10^3/uL (3.5-10.8)
[2018-12-15 07:00] LABS: BUN/Creatinine Ratio 2.6 (8-20); Calcium 9.3 mg/dL (8.6-10.3); EGFR African American 12.8 (>60); EGFR Non-African American 10.6 (>60); Potassium 3.4 mmol/L (3.5-5.0)
[2018-12-15 11:04] VITALS: BP 136/65
--- NOTE | 2018-12-16 02:23 | OP ---
CC: Dr. Bryan Becker; Dr. Conchita De León; [facility]. OPERATIVE REPORT: DATE OF OPERATION: 12/15/18 DATE OF : 52 SURGEON: Dr. Estrella. MARGIN CLERK: Libia Raman NP. ANESTHESIOLOGIST: Dr. Evans. ANESTHESIA: General. PRE-OP DIAGNOSIS: End-stage renal disease. POST-OP DIAGNOSIS: End-stage renal disease. OPERATIVE PROCEDURE: Laparoscopic peritoneal dialysis catheter placement. ESTIMATED BLOOD LOSS: Minimal. FLUIDS: Minimal crystalloid fluid given. SPECIMEN: None. A 62 cm Curl Cath inserted in the appropriate orientation. COMPLICATIONS: The patient was transferred to the PACU in stable condition and upon discharge, was i dentified in the cafeteria by the nursing staff, who felt that she had significant oozing from her in cision site and instructed her to go to the ER. In the ER, the patient was seen by me and the dressi ng was replaced sterilely. Hemostasis was excellent. INDICATIONS: Ms. Moreira is a 68-year-old female whom I had seen earlier this year for recommended per itoneal dialysis catheter placement. This was meant to be initially a buried catheter that we would utilize when needed. Since my initial visit with her, the patient has started hemodialysis and the p alfonso changed to a non- buried, but tunneled peritoneal dialysis catheter placement. The patient was a galo that she would have this procedure. She was seen in the preoperative area. I marked her skin w here the exit site would be, noting her belt line and explaining this to her. DESCRIPTION OF PROCEDURE: The patient was then taken to the operating room. Preoperative antibiotics were given. Sequential devices were placed on bilateral lower extremities and general anesthesia wa s induced. The patient's abdomen was prepped and draped in a standard surgical fashion. A time-out was performed. An incision was made at Cerda's point. This was dissected down to the fascia at the left upper quad rant. This was elevated and a Veress needle inserted into the abdominal cavity, which was then allow ed to insufflate to a pressure of 15 mmHg. An 8 mm trocar was placed in an Optiview fashion at the sa me incision and there was no evidence of injury from this trocar insertion. The patient was placed in Trendelenburg. Additional 5 mm trocar was then placed in the left lower qu adrant. Review of the abdomen showed there were no adhesions from previous surgeries. We then perfo rmed an omentopexy at the right upper quadrant with an 0 Polysorb suture using a suture passer. Next, a 62 cm Curl Cath Covidien type peritoneal dialysis catheter was then inserted into the abdomen . It was placed in the cul-de-sac. There was notable free fluid in the cul-de-sac; this was serous, nonbloody and again, there were no adhesions. Next, I tunneled a 5 mm trocar through the rectus muscle on the left and austin the catheter through th is tunnel and out my initial incision, ensuring that the 2 cuffs were outside the abdomen with 1 cuff in the muscular space just anterior to the peritoneum. The catheter was then tunneled up and then b ack down at the planned exit site, as typically done. We then hooked this up to dialysate, which holden wed well and was also removed with ease. Next, the abdomen was allowed to collapse. Trocars were removed under direct vision and all incision s were closed with 4-0 Monocryl or Steri-Strips or both. Steri-Strips were applied. The patient danny rated the procedure well and was transferred to the PACU in stable condition. [id number]/[facility] #: [id number]
== END | disposition home or self-care (01) ==
LOC: OR 05:29
PROVIDERS: ATTEND Surgery
DX: E11.22 Type 2 diabetes mellitus with diabetic chronic kidney disease (principal); I12.0 Hypertensive chronic kidney disease with stage 5 chronic kidney disease or end stage renal disease; D63.1 Anemia in chronic kidney disease; N18.6 End stage renal disease; R03.0 Elevated blood-pressure reading, without diagnosis of hypertension; J96.01 Acute respiratory failure with hypoxia; E87.70 Fluid overload, unspecified; Z87.891 Personal history of nicotine dependence; Z88.8 Allergy status to other drugs, medicaments and biological substances
CPT/HCPCS: 36415; 80048; 85027; A9270-GY; J0690; J1644; J2250; J2405; J2704; J2710; J2765; J3010

== ENCOUNTER 2018-12-15 12:48 | Emergency (ER) | payer MEDICARE ==
--- NOTE | 2018-12-15 14:35 | ED ---
Skin Complaint - HPI Summary HPI Summary: Pt. is a 68 y.o female who presents for evaluation by Dr. Estrella for bleeding peritoneal catheter site. Pt. had peritoneal catheter placed by Dr. Estrella today. Patient noticed bleeding from site and was instructed to come to the ER for dressing change by Dr. Estrella. Patient otherwise denies complaints. Denies fever, chills, chest pain, shortness of breath, abdominal pain, vomiting. Symptoms are mild in severity. No current modifying factors. - History of Current Complaint Chief Complaint: EDLacSutureRecheck Time Seen by Provider: 12/15/18 13:32 Stated Complaint: VAGINAL BLEEDING(FROM CATH) PER PT Hx Obtained From: Patient Pain Intensity: 7 - Additional Pertinent History Primary Care Physician: LONNIE - Allergy/Home Medications Allergies/Adverse Reactions: Allergies Allergy/AdvReac Type Severity Reaction Status Date / Time enalapril Allergy Swelling Verified 12/15/18 06:37 Of Face,Lips,& Throat hydralazine AdvReac Palpitation Verified 12/15/18 06:37 s verapamil AdvReac Palpitation Verified 12/15/18 06:37 s Home Medications: Home Medications predniSONE TAB* [Deltasone 10 MG TAB*] 30 mg PO QAM 12/15/18 [History Confirmed 12/15/18] PMH/Surg Hx/FS Hx/Imm Hx Previously Healthy: Yes Endocrine/Hematology History: Reports: Hx Diabetes, Hx Anemia Denies: Hx Anticoagulant Therapy, Hx Blood Disorders, Hx Thyroid Disease, Hx Unexplained Bleeding Cardiovascular History: Reports: Hx Cardiomegaly - slightly enlarged per md, Hx Hypercholesterolemia, Hx Hypertension, Other Cardiovascular Problems/Disorders - DIABETIC Denies: Hx Angina, Hx Atrial Fibrillation, Hx Coronary Artery Disease, Hx Myocardial Infarction, Hx Pacemaker/ICD, Hx Syncope, Hx Valvular Heart Disease Respiratory History: Reports: Hx Pulmonary Edema Denies: Hx Asthma, Hx Chronic Obstructive Pulmonary Disease (COPD), Other Respiratory Problems/Disorders Comment Only: Hx Sleep Apnea - MD. 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 History: Reports: Hx Chronic Renal Failure, Hx Dialysis Musculoskeletal History: Reports: Hx Orthopedic Injury - Left knee Denies: Hx Arthritis, Hx Osteoporosis Sensory History: Reports: Hx Cataracts, Hx Contacts or Glasses Denies: Hx Hearing Aid Opthamlomology History: Reports: Hx Cataracts, Hx Contacts or Glasses Neurological History: Reports: Hx Headaches Psychiatric History: Reports: Hx Anxiety - Cancer History Cancer Type, Location and Year: Breast CA Hx Chemotherapy: No - radiation Hx Radiation Therapy: Yes - Surgical History Surgery Procedure, Year, and Place: left knee replacement 2013 [facility]. lumpectomy under right arm 2014. AVM repair 02/2016. right cataract surgery with lens implant 02/2016. right wrist surgery - carpal tunnel 1999. tubal ligation 1977 in [place]. repair of incision from tubal surgery Hx Anesthesia Reactions: No Infectious Disease History: No Infectious Disease History: Reports: Hx Hepatitis Denies: Hx of Known/Suspected MRSA, Traveled Outside the [place] in Last 30 Days - Family History Known Family History: Positive: Cardiac Disease, Diabetes - Social History Occupation: Retired Lives: With Family Alcohol Use: None Hx Substance Use: No Substance Use Type: Reports: None Hx Tobacco Use: Yes Smoking Status (MU): Former Smoker Type: Cigarettes Amount Used/How Often: 1/2 ppd Length of Time of Smoking/Using Tobacco: Quit 11/28/2016 Have You Smoked in the Last Year: No Review of Systems Constitutional: Negative Negative: Fever, Chills Cardiovascular: Negative Negative: Chest Pain Respiratory: Negative Negative: Shortness Of Breath Gastrointestinal: Negative Negative: Abdominal Pain, Vomiting, Nausea Positive: Other - Bleeding for perioneal catheter Neurological: Negative All Other Systems Reviewed And Are Negative: Yes Physical Exam Triage Information Reviewed: Yes Vital Signs On Initial Exam: Initial Vitals Temp Pulse Resp BP Pulse Ox 98.7 F 81 20 164/80 93 12/15/18 13:25 12/15/18 13:25 12/15/18 13:25 12/15/18 13:25 12/15/18 13:25 Vital Signs Reviewed: Yes Appearance: Positive: Well-Appearing - Pt. sitting up in bed in NAD Skin: Positive: Warm, Dry Head/Face: Positive: Normal Head/Face Inspection Eyes: Positive: Normal, EOMI Neck: Positive: Supple Abdomen Description: Positive: Other: - Peritoneal catheter to left side of abd. Pressure bag inplace. No active bleeding. Neurological: Positive: Normal, CN Intact II-III Psychiatric: Positive: Affect/Mood Appropriate Diagnostics - Vital Signs Vital Signs Temp Pulse Resp BP Pulse Ox 12/15/18 13:25 98.7 F 81 20 164/80 93 - Laboratory Lab Statement: Any lab studies that have been ordered have been reviewed, and results considered in the medical decision making process. Course/Dx - Course Course Of Treatment: Patient presenting for dressing change by surgery. Pt. otherwise has no complaints. Pt. was seen in ED by Dr. Estrella who changed dressing and placed a sand bag for pressure. Dr. Estrella wanted pt. to have pressure bag in place for 30 minutes and then dc home. No further bleeding. Pt. will dc home to [facility] with sx as scheduled. Will return to ER if sxs change or worsen. - Diagnoses Provider Diagnoses: Peritoneal dialysis catheter in place Discharge - Sign-Out/Discharge Documenting (check all that apply): Patient Departure Patient Received Moderate/Deep Sedation with Procedure: No - Discharge Plan Condition: Improved Disposition: HOME Patient Education Materials: Peritoneal Dialysis Catheter Care (ED) Referrals: Manjeet Estrella MD [Medical Doctor] - Conchita De León MD [Primary Care Provider] - Additional Instructions: Follow up with Dr. Estrella as scheduled Return to ER if symptoms change or worsen - Billing Disposition and Condition Condition: IMPROVED Disposition: Home
[2018-12-15 15:40] VITALS: BP 168/75
== END 2018-12-15 15:40 | disposition home or self-care (01) ==
LOC: ED 12:48
DX: Z95.828 Presence of other vascular implants and grafts (principal); I11.9 Hypertensive heart disease without heart failure; E11.9 Type 2 diabetes mellitus without complications; D64.9 Anemia, unspecified; E78.00 Pure hypercholesterolemia, unspecified; J44.9 Chronic obstructive pulmonary disease, unspecified; K21.9 Gastro-esophageal reflux disease without esophagitis; K58.9 Irritable bowel syndrome, unspecified; F41.9 Anxiety disorder, unspecified; Z88.8 Allergy status to other drugs, medicaments and biological substances; Z79.899 Other long term (current) drug therapy; Z85.3 Personal history of malignant neoplasm of breast; Z87.891 Personal history of nicotine dependence
CPT/HCPCS: 99281

== ENCOUNTER 2018-12-18 13:57 | Emergency (ER) | payer MEDICARE ==
[2018-12-18] MEDS ORDERED: oxyCODONE/Acetamin 5/325 MG* TAB PO ONE (14:40)
--- NOTE | 2018-12-18 14:48 | ED ---
Abdominal Pain/Female - HPI Summary HPI Summary: This patient is a 68 year old female presenting to [facility] with a chief complaint of lower abd pain since this morning. Patient is a dialysis patient, receiving hemodialysis. Patient recently received a peritoneal dialysis catheter 3 days ago. Today, patient states that she is having severe LLQ abd pain. The pain is described as sharp. The pain is rated 10/10 in severity. Symptoms aggravated by nothing. Symptoms alleviated by nothing. Patient additionally notes ecchymosis around the site of the catheter. - History of Current Complaint Chief Complaint: EDAbdPain Stated Complaint: LOWER ABD PAIN PER PT Time Seen by Provider: 12/18/18 14:21 Hx Obtained From: Patient Onset/Duration: Lasting Hours, Still Present Timing: Constant Severity Initially: Moderate Pain Intensity: 10 Pain Scale Used: 0-10 Numeric Location: Discrete At: LLQ Radiates: No Character: Sharp Aggravating Factor(s): Nothing Alleviating Factor(s): Nothing Associated Signs and Symptoms: Positive: Other: - ecchymosis. Negative: Fever Allergies/Adverse Reactions: Allergies Allergy/AdvReac Type Severity Reaction Status Date / Time enalapril Allergy Swelling Verified 12/18/18 14:44 Of Face,Lips,& Throat hydralazine AdvReac Palpitation Verified 12/18/18 14:44 s verapamil AdvReac Palpitation Verified 12/18/18 14:44 s PMH/Surg Hx/FS Hx/Imm Hx Previously Healthy: No Endocrine/Hematology History: Reports: Hx Diabetes, Hx Anemia Denies: Hx Anticoagulant Therapy, Hx Blood Disorders, Hx Thyroid Disease, Hx Unexplained Bleeding Cardiovascular History: Reports: Hx Cardiomegaly - slightly enlarged per md, Hx Hypercholesterolemia, Hx Hypertension, Other Cardiovascular Problems/Disorders - DIABETIC Denies: Hx Angina, Hx Atrial Fibrillation, Hx Coronary Artery Disease, Hx Myocardial Infarction, Hx Pacemaker/ICD, Hx Syncope, Hx Valvular Heart Disease Respiratory History: Reports: Hx Pulmonary Edema Denies: Hx Asthma, Hx Chronic Obstructive Pulmonary Disease (COPD), Other Respiratory Problems/Disorders Comment Only: Hx Sleep Apnea - MD. 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 History: Reports: Hx Chronic Renal Failure, Hx Dialysis Musculoskeletal History: Reports: Hx Orthopedic Injury - Left knee Denies: Hx Arthritis, Hx Osteoporosis Sensory History: Reports: Hx Cataracts, Hx Contacts or Glasses Denies: Hx Hearing Aid Opthamlomology History: Reports: Hx Cataracts, Hx Contacts or Glasses Neurological History: Reports: Hx Headaches Psychiatric History: Reports: Hx Anxiety - Cancer History Cancer Type, Location and Year: Breast CA Hx Chemotherapy: No - radiation Hx Radiation Therapy: Yes - Surgical History Surgery Procedure, Year, and Place: left knee replacement [address] [facility]. lumpectomy under right arm 2014. AVM repair 02/2016. right cataract surgery with lens implant 02/2016. right wrist surgery - carpal tunnel 1999. tubal ligation 1977 in [place]. repair of incision from tubal surgery Hx Anesthesia Reactions: No Infectious Disease History: No Infectious Disease History: Reports: Hx Hepatitis Denies: Hx of Known/Suspected MRSA, Traveled Outside the [place] in Last 30 Days - Family History Known Family History: Positive: Cardiac Disease, Diabetes - Social History Alcohol Use: None Hx Substance Use: No Substance Use Type: Reports: None Hx Tobacco Use: Yes Smoking Status (MU): Former Smoker Type: Cigarettes Amount Used/How Often: 1/2 ppd Length of Time of Smoking/Using Tobacco: Quit 11/28/2016 Have You Smoked in the Last Year: No Review of Systems Negative: Fever Positive: Abdominal Pain Positive: Bruising All Other Systems Reviewed And Are Negative: Yes Physical Exam - Summary Physical Exam Summary: Appearance: well appearing, no pain distress Skin: warm, dry, reflects adequate perfusion Head/face: normal Eyes: EOMI, LACIE ENT: mucous membranes moist Neck: supple, non-tender Respiratory: CTA, breath sounds present Cardiovascular: RRR, pulses symmetrical Abdomen: LLQ tenderness, ecchymosis around catheter site. Mild edema, no big hematoma. Bowel Sounds: present Musculoskeletal: normal, strength/ROM intact Neuro: normal, sensory motor intact, A&Ox3 Triage Information Reviewed: Yes Vital Signs On Initial Exam: Initial Vitals Temp Pulse Resp BP Pulse Ox 98.8 F 88 18 202/78 96 12/18/18 14:11 12/18/18 14:11 12/18/18 14:11 12/18/18 14:11 12/18/18 14:11 Vital Signs Reviewed: Yes Diagnostics - Vital Signs Vital Signs Temp Pulse Resp BP Pulse Ox 12/18/18 14:11 98.8 F 88 18 202/78 96 - Laboratory Result Diagrams: 12/18/18 14:48 12/18/18 14:48 Lab Statement: Any lab studies that have been ordered have been reviewed, and results considered in the medical decision making process. - Additional Comments Diagnostic Additional Comments: Bedside US preformed by ED physician reveals tissue edema and hematoma. Largest hematoma is 1x0.8cm. Abdominal Pain Fem Course/Dx - Course Course Of Treatment: Nurse's notes reviewed. The surgeon came and evaluated her abdomen after placement of peritoneal dialysis catheter recently. She had some bleeding postoperatively and today manifest discomfort from hematoma and ecchymosis. There is only a small discrete hematoma seen a bedside ultrasound but there is some fluid which is either blood or simple fluid throughout the area of the left lower quadrant abdomen. Given the bruising in the skin this is likely blood. She is hemodynamically stable. She also complained of UTI symptoms was found to have a UTI and is placed on antibiotics. - Diagnoses Differential Diagnosis: Positive: Other - Abdominal wall pain, infected catheter , UTI, constipation, diverticulitis Provider Diagnoses: Abdominal wall hematoma, UTI (urinary tract infection) Discharge - Sign-Out/Discharge Documenting (check all that apply): Patient Departure Patient Received Moderate/Deep Sedation with Procedure: No - Discharge Plan Condition: Improved Disposition: HOME Prescriptions: Cephalexin CAP* [Keflex CAP*] 500 mg PO TID #20 cap Patient Education Materials: Urinary Tract Infection in Women (ED), Hematoma ( ED) Referrals: Manjeet Estrella MD [Medical Doctor] - Conchita De León MD [Primary Care Provider] - Additional Instructions: Warm compresses to the area, massage may help. Return with fever, increased pain, worse, new symptoms or other concerns. Liquid ingestion and cranberry juice may help with UTI symptoms. Call on Thursday to follow up with your doctor. - Billing Disposition and Condition Condition: IMPROVED Disposition: Home - Attestation Statements Document Initiated by Scribe: Yes Documenting Scribe: Loni Morton Provider For Whom Anibal is Documenting (Include Credential): Marquis Izquierdo MD Scribe Attestation: Loni Fernandez scribed for Marquis Izquierdo MD on 12/18/18 at 1835. Scribe Documentation Reviewed: Yes Provider Attestation: The documentation as recorded by the Loni boggs accurately reflects the service I personally performed and the decisions made by me, Marquis Izquierdo MD Status of Scribe Document: Viewed
[2018-12-18 15:11] LABS: INR 1.15 (0.82-1.09)
[2018-12-18 15:12] LABS: Albumin 3.5 g/dL (3.2-5.2); Albumin/Globulin Ratio 1.2 (1-3); BUN/Creatinine Ratio 2.6 (8-20); C Reactive Protein 10.43 mg/L (<8.01); Calcium 8.6 mg/dL (8.6-10.3); EGFR African American 21.5 (>60); EGFR Non-African American 17.7 (>60); Potassium 3.5 mmol/L (3.5-5.0); Total Bilirubin 0.4 mg/dL (0.2-1.0); Total Protein 6.5 g/dL (6.4-8.9)
[2018-12-18 15:18] LABS: Urine Appearance Cloudy; Urine Bacteria 2+ (Absent); Urine Bilirubin Negative (Negative); Urine Blood 1+ (Negative); Urine Color Yellow; Urine Glucose 2+(150 mg/dL) (Negative); Urine Ketones Negative (Negative); Urine Nitrite Negative (Negative); Urine Protein 3+(>=500 mg/dL) (Negative); Urine Red Blood Cell 1+(3-5/hpf) (Absent); Urine Specific Gravity 1.012 (1.010-1.030); Urine Squamous Epithelial Cell Present (Absent); Urine Transitional Epithelial Present (Absent); Urine Urobilinogen Negative (Negative); Urine White Blood Cell 2+(11-20/hpf) (Absent)
[2018-12-18 15:19] LABS: ABS Basophils 0 10^3/ul (0-0.2); ABS Eosinophils 0.1 10^3/ul (0-0.6); ABS Monocytes 0.9 10^3/ul (0-0.8); ABS Neutrophils 5.2 10^3/ul (1.5-7.7); ABS Nucleated RBC 0 10^3/ul; Eosinophil % 1.2 %; Hematocrit 34 % (33-41); Hemoglobin 11.1 g/dL (12.0-16.0); Lymphocyte % 14.1 %; Mean Corpuscular HGB Conc 33 g/dL (31-36); Mean Corpuscular Hemoglobin 29 pg (27-31); Mean Corpuscular Volume 88 fL (80-97); Nucleated Red Blood Cells % 0.2; Platelet Count 341 10^3/uL (150-450); Red Blood Count 3.82 10^6 /uL (3.70-4.87); Red Cell Distribution Width 16 % (10.5-15); White Blood Count 7.2 10^3/uL (3.5-10.8)
[2018-12-18] MEDS ORDERED: Cephalexin CAP* 500 MG PO ONE (15:31)
[2018-12-18 17:00] VITALS: BP 186/80
--- NOTE | 2018-12-22 18:21 | PN ---
Progress Note - Progress Note Date of Service: 12/18/18 Note: Pt. with suprapubic catheter. Seen in ER 12/18 and started on keflex for UTI. Urine culture growing VRE enterococcus faecium. Attempted to call pt. barron at 1821, with no answer. Message left to return call. Will attempt to call again in the a.m.
== END 2018-12-18 16:59 | disposition home or self-care (01) ==
LOC: ED 13:57
DX: N39.0 Urinary tract infection, site not specified (principal); K43.9 Ventral hernia without obstruction or gangrene; I11.9 Hypertensive heart disease without heart failure; E11.9 Type 2 diabetes mellitus without complications; E78.00 Pure hypercholesterolemia, unspecified; K21.9 Gastro-esophageal reflux disease without esophagitis; D64.9 Anemia, unspecified; Z88.8 Allergy status to other drugs, medicaments and biological substances; Z86.711 Personal history of pulmonary embolism; Z85.3 Personal history of malignant neoplasm of breast; Z92.3 Personal history of irradiation; Z87.891 Personal history of nicotine dependence
CPT/HCPCS: 36415; 80053; 81003; 81015; 83605; 83690; 85025; 85610; 86140; 87077; 87086; 87186; 99283; A9270-GY

== ENCOUNTER 2019-06-09 11:00 | Inpatient (IN) | payer MEDICARE ==
--- NOTE | 2019-08-31 15:31 | HP ---
HISTORY AND PHYSICAL: DATE OF ADMISSION/SURGERY: 09/08/19 DATE OF OFFICE VISIT: 08/26/19 SURGEON: Lisa Jarvis MD.* (DICTATED BY WILFRIDO BORREGO) PROCEDURE: Right total knee arthroplasty. CHIEF COMPLAINT: Right knee pain. HISTORY OF PRESENT ILLNESS: Ms. Moreira is a 69-year-old female with severe end- stage osteoarthritis of the right knee. She has failed conservative treatment and elected to proceed with a right total knee arthroplasty. PAST MEDICAL HISTORY: Hypertension; GERD; diabetes; breast cancer; AVM of the small intestine; and stage 4 kidney disease, requiring daily peritoneal dialysis. PAST SURGICAL HISTORY: Lumpectomy, left total knee arthroplasty, right wrist surgery, tubal ligation. CURRENT MEDICATIONS: 1. Diltiazem 240 mg daily. 2. Lantus. 3. Multivitamin. 4. Labetalol 300 mg twice a day. 5. Isosorbide mononitrate 30 mg a day. 6. Amlodipine 10 mg a day. 7. Vitamin D3. 8. Fluticasone nasal spray. 9. Omeprazole. 10. Lorazepam 0.5 mg twice a day as needed. 11. Tylenol as needed. 12. Terazosin 10 mg a day. 13. Clonidine 0.3 mg 3 times a day. 14. Calcium. ALLERGIES: ENALAPRIL and VERAPAMIL. FAMILY HISTORY: Diabetes. SOCIAL HISTORY: She is a 69-year-old female. She lives alone. She does not smoke or use drugs. REVIEW OF SYSTEMS: A complete 14-point review of systems was reviewed with the patient. It was positive for diabetes and end-stage renal disease as well as an AVM of the small intestine and history of hepatitis C infection, which was treated in 2017. She also reports symptoms of GERD. She denies a history of HIV, MRSA, or anesthesia problems. She denies a history of DVT or PE. PHYSICAL EXAMINATION GENERAL: She is well developed, well nourished, in no acute distress. VITAL SIGNS: She stands 5 feet 4 inches tall, weighs 153 pounds. Blood pressure is 130/60, her heart rate is 72. HEENT: Normocephalic, atraumatic. NECK: Supple. No palpable lymph nodes. PULMONARY: The lungs are clear to auscultation bilaterally. CARDIO: Regular rate and rhythm. Strong S1, S2. ABDOMEN: Soft, nontender, nondistended. NEUROLOGICAL: She is alert and oriented x3. MUSCULOSKELETAL: Right lower extremity: The skin is intact. There are no open wounds or abrasions. There is a moderate effusion of the right knee joint. She walks with an antalgic type gait favoring her right knee. There is a 17-degree valgus deformity of the knee. Range of motion is 10 to 110 degrees of flexion. She has a 2+ dorsalis pedis pulse. She is able to dorsiflex and plantarflex with intact sensation. ASSESSMENT AND PLAN: Ms. Moreira is a 69-year-old female with end-stage osteoarthritis of the right knee. She has failed conservative treatment and elected to proceed with a right total knee arthroplasty. Surgery is scheduled for 09/08/[address] Jarvis discussed the risks and benefits of the surgery at today's visit and all of her questions were answered. She will follow up with Dr. Jarvis 2 weeks after the surgery. No TXA will be used in this patient. WILFRIDO BORREGO [id number]/[facility] #: [id number] MTDD
[2019-09-07] MEDS ORDERED: Buffered Lidocaine 1% SYRIN* 1 ML/SYRINGE INTRADERM ONE (13:21)
[2019-09-08] MEDS ORDERED: Famotidine IV* 10 MG/ML 2 ML (20 mg) IV ONE (06:00)
[2019-09-08] MEDS ORDERED: Acetaminophen TAB* 325 MG PO ONE (06:00)
[2019-09-08] MEDS ORDERED: Gabapentin CAP(*) 300 MG PO ONE (06:00)
[2019-09-08] MEDS ORDERED: NS 0.45% 1000 ML BAG* 1,000 ML IV SCH (06:00)
--- OUTSIDE RECORDS SUMMARY | 2019-09-08 06:30 | XMS REPORT | Continuity of Care Document ---
:1950 External Reference #:[id number] Author Name Lisa Jarvis M.D. (transmitted by agent of provider Mariana Jauregui) Address [address] [place] [id number] Care Team Providers Name Role Phone Tyron Garcia MD - Internal Care Team Information Meteorologist Liaison Medicine Jhonatan Carey MD - Infectious Care Team Information Meteorologist Liaison Disease Bryan Becker MD - Nephrology Care Team Information Meteorologist Liaison Ford Gracia MD - Dermatology Care Team Information Meteorologist Liaison Conchita De León M.D. 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 Iron dextran infusions 11/01/14, , 03/05/15, and 06/13/15. -normal/negative Vit. B12, SPEP/SFLCs, no evidence hemolysis -EGD 11/27/10 (few small AVMs) and colonoscopy 09/23/11 (normal) by Dr. Edgard Morales. -Despite repeated iron infusions, the only times she has had a hg> 10 is with pre-operative WILLARD and after a blood transfusion. Bone marrow aspiration and biopsy 03/21/15 normal. Above obtained from old chart from previous pcp Hyperlipidemia Ezekiel Sparks NP Onset: 09/19/2016 Insomnia Ezekiel Sparks NP Onset: 09/19/2016 Colonoscopic polypectomy Ezekiel Sparks NP Onset: 09/19/2016 Note: Recommended repeat in 3 years: one cecal AVM Last colonoscopy 03/19/2015 EGD 03/19/15 Malignant neoplasm of female breast Ezekiel Sparks NP Onset: 09/19/2016 Arthritis of knee Ezekiel Sparks NP Onset: 10/08/2016 Note: Left knee Diabetic retinopathy Ezekiel Sparks NP Onset: 10/20/2016 Note: mild on 2017 eye exam; Dr. 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 Onset: 05/06/2019 Acquired genu valgum Lisa Jarvis M.D. 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 Recreational Drug Use Denies Drug Use Tobacco Use Start: Unknown Patient is a former quit 11/25/16 End: Unknown smoker Tobacco Use Start: Unknown Patient is a former End: Unknown smoker Smoking Status Reviewed: 08/26/19 Patient is a former quit 11/25/16 smoker Exercise Type/Frequency Does not exercise Allergies, Adverse Reactions, Alerts Active Allergies Reaction Severity Comments Date Enalapril tongue swelling Severe 09/19/2016 Verapamil heart pounds and inc BP Severe 09/19/2016 Enalapril Maleate 07/26/2019 Inactive Allergies Diltiazem heart pound inc BP Severe 09/19/2016 Medications Active Medications SIG Qnty Indications Ordering Date Provider Omeprazole 1 by mouth every 30caps Sri Taylor, 08/25/2019 20mg day MD Capsules Calcitkarl 1 by mouth every Unknown 06/26/2019 0.25mcg day Capsules Fluticasone 2 sprays each 16gm Conchita De León MD 06/06/2019 Propionate nostril qd. 50mcg/Act Suspension Novolin R sliding scale as Unknown 05/15/2019 100Unit/ML needed Solution Diltiazem HCL ER one by mouth daily 30caps Conchita De León MD 12/17/2018 240mg Caps ER 24HR Lantus Solostar take 15 sq units 45ml Conchita De León MD 12/03/2018 once a day 100Unit/ML Solution Pen-Inject Walker Basket Rollator walker 1units R06.02 Conchita De León MD 11/16/2018 Misc with a seat and basket to use daily during ambulation N18.6 Multivitamin Women 1 by mouth every day 30tabs Manjeet Estrella, 09/30/2018 , FACS Tablets Onetouch Delica check BS qid and prn 100units E11.42 Tyron Luevano 2017 Lancets Fine 30G last visit 12/11/17 Salome Garcia,FACP 30G Misc Isosorbide 1 by mouth every day 90tabs Conchita De León MD 11/30/2017 Mononitrate ER 30mg Tablets ER 24HR Labetalol HCL 1 by mouth twice a 180tabs Conchita De León MD 11/30/2017 300mg day Tablets BD Pen twice a day for 200units Tyron Luevano 01/30/2017 Needle/Mini/Ultrafine lantus and gilberto Garcia M.D.,FACP /31G X 3/16" times a day for 31G X 5 mm novalog or as needed Misc Onetouch Ultra Blue check bs four times a 100units E11.40 Conchita De León MD 09/19/2016 day and as needed Strips last visit 11/25/2018 Amlodipine Besylate 1 by mouth daily 180tabs Conchita De León MD 10mg Tablets Glucose 2 chewtabs as neede E11.40 Unknown 4gm Chewtabs hypoglycemia Lorazepam 1 tab twice a day as 60tabs G47.00 Conchita De León MD 0.5mg Tablets needed, mdd 2 F41.9 Acetaminophen ER 1 tab by mouth q4 Unknown 650mg Tablets hours as needed ER pain Terazosin HCL take 1 capsule by 90caps Conchita De León MD 10mg Capsules mouth every evening Clonidine HCL Take 1 Tablet By 90tabs Rosario Lacy 0.3mg Tablets Mouth Three Times M.D. Daily Medications Administered in Office Medication SIG Qnty Indications Ordering Provider Date Depomedrol 40MG Mariana Javier M.D. 11/13/2016 Injection Immunizations CPT Code Status Date Vaccine Reaction Lot # [id number] Given 07/14/2018 Pneumonia Vaccine no immediate reaction [id number] noted 84925 Given 07/14/2018 Influenza Virus Vaccine, no immediate reaction [id number] Quadrivalent, Split, noted Preservative Free 45400 Given 06/11/2017 Influenza Virus Vaccine, [id number] Quadrivalent, Split, Preservative Free 60047 Given 04/20/2017 Pneumococcal Conjugate [id number] Vaccine 13 Valent For Intramuscular Use Vital Signs Date Vital Result Comment 08/26/2019 2:53pm Height 64 inches 5'4" Weight 153.81 lb Heart Rate 72 /min BP Systolic 132 mmHg BP Diastolic 60 mmHg Respiratory Rate 12 /min Body Temperature 97.3 F Pain Level 10 BMI (Body Mass Index) 26.4 kg/m2 08/25/2019 1:25pm Height 64 inches 5'4" Weight 159.00 lb Heart Rate 56 /min BP Systolic Sitting 127 mmHg BP Diastolic Sitting 58 mmHg BMI (Body Mass Index) 27.3 kg/m2 Results Test Acquired Date Facility Test Result H/L Range Note Laboratory test 08/25/2019 [facility] Hemoglobin A1c 7.8 High 5-7 finding Hematocrit 06/10/2019 N2N/CCD Import Hematocrit 23.4 Low 37.0 - 47.0 Hemoglobin 06/10/2019 N2N/CCD Import Hemoglobin 7.9 Low 12.0 - 16.0 HCT Calc 06/10/2019 N2N/CCD Import HCT Calc 23.7 Low 37.0 - (HGBX3) (HGBX3) 47.0 Hemoglobin A1c 06/10/2019 N2N/CCD Import Hemoglobin A1c 8.0 High 0.0 - 5.6 % % Laboratory test 06/07/2019 [facility] Hemoglobin A1c <pending> finding [address] (Glyco HGB) [place] [address] [phone] Laboratory test 06/07/2019 [facility] House Hemoglobin A1c 7.4 High 5-7 finding PTH Intact 05/27/2019 N2N/CCD Import PTH Intact 480 High 18 - 80 Hep B Surfce Ag 05/27/2019 N2N/CCD Import Hep B Surfce Ag Neg Neg Ferritin 05/27/2019 N2N/CCD Import Ferritin 1277 High 10 - 291 Hemoglobin A1c 05/27/2019 N2N/CCD Import Hemoglobin A1c 8.1 High 0.0 - 5.6 % % Calcium 05/27/2019 N2N/CCD Import Calcium 8.8 8.7 - Corrected Corrected 10.4 Alt/SGPT 05/27/2019 N2N/CCD Import Alt/SGPT 13 10 - 49 Glucose 05/27/2019 N2N/CCD Import Glucose 198 High 70 - 99 CBC With 05/27/2019 N2N/CCD Import Monos-Abs 667.50 0 - 1100 Autodiff Basos-Abs 52.50 0 - 400 Eosins-Abs 90.00 0 - 700 HCT Calc (HGBX3) 25.8 Low 37.0 - 47.0 Basophils 0.7 Neutrophils 73.3 Lymphocytes 15.9 Monocytes 8.9 Eosinophils 1.2 RDW 15.5 High 11.0 - 15.0 WBC 7.5 4.5 - 11.0 RBC 2.95 Low 4.20 - 5.40 Hematocrit 27.1 Low 37.0 - 47.0 Hemoglobin 8.6 Low 12.0 - 16.0 MCV 91.9 80.0 - 100.0 MCH 29.2 27.0 - 31.0 MCHC 31.8 Low 32.0 - 36.0 Platelet-CT 357 150 - 400 Neuts-Abs 5497.50 2000 - 8800 Lymphs-Abs 1192.50 1100 - 4800 Chem I HD 05/27/2019 N2N/CCD Import Phosphorus 5.8 High 2.4 - 5.1 Potassium 4.3 3.5 - 5.5 Ast/Sgot 17 0 - 34 Protein - Total 6.0 5.7 - 8.2 A/G Ratio 1.5 1 - 2.5 Globulin 2.4 0.9 - 5 Caxphos Product 49.3 21 - 53 Caxphos Corrected 51.0 21 - 53 Alk Phos 130 High 46 - 116 Albumin 3.6 3.2 - 4.8 Calcium 8.5 Low 8.7 - 10.4 Chloride 100 99 - 109 Co2 25 20 - 31 LDH, Total 217 120 - 246 0416 05/27/2019 N2N/CCD Import BUN 42 High 9 - 23 Creatinine 7.62 High 0.50 - 1.10 NPCR PD 0.71 Creat-PD 3.62 Urea-PD 34 Urea CLR Ur/Bsa 2.2 Low 64 - 99 Cre CLR Ur/Bsa 5 Low 75 - 115 Urea CLR Ur 2.3 Minuts Collctd-Ur 1440 Tot.Vol.-Urine 400 Tot.Vol.-PDF 9873 Urea Gen Rate 7.0 Urea Nit Urine 342 Creat-Ur 144.09 Bsa (Lisa) 1.77 Body WT (LBS) 158.97758 Height (Inches) 64 TBW David 33.07 Pna (PD) 50.8 Npna-PD 0.89 Tamela (PD) 4.7 Min Goal:KT/V PD 2.1 PCR PD 40.4 Amputation Factor 0 Cre CLR Ur 5 Low 88 - 128 L/WK/1.73 Resid cc 36.92 L/WK PDF cc 32.83 L/WK/1.73 Total cc 68.93 L/WK Resid cc 37.87 L/WK/1.73 PDF cc 32.01 L/WK Total cc 70.71 KT/V PDF 1.69 KT/V Residual 0.69 KT/V Total PD 2.38 Iron Panel 05/27/2019 N2N/CCD Import Iron 31 Low 50 - 170 Iron Saturation 10 Low 16 - 46 Tibc 296 250 - 450 Uibc 265 80 - 375 Lipid Profile 05/27/2019 N2N/CCD Import Cholesterol 172 0 - 199 Triglycerides 94 0 - 149 HDL 70 High 40 - 60 Chol/HDL Ratio 2.5 Low 3.3 - 5 LDL 83 0 - 99 VLDL-Chol (Calc) 19 0 - 29 HGB + HCT 05/13/2019 N2N/CCD Import Hematocrit 25.0 Low 37.0 - 47.0 Hemoglobin 8.3 Low 12.0 - 16.0 HCT Calc (HGBX3) 24.9 Low 37.0 - 47.0 Caxphos Corrected 04/28/2019 N2N/CCD Import Caxphos Corrected 48.4 21 - 46 Calcium Corrected 04/28/2019 N2N/CCD Import Calcium Corrected 9.3 8.7 - 10.4 Glucose 04/28/2019 N2N/CCD Import Glucose 305 High 70-105 CBC With Autodiff 04/28/2019 N2N/CCD Import WBC 7.4 4.5-11.0 RBC 3.2 Low 4.60-6.20 Hematocrit 28 Low 33.0-36.0 Hemoglobin 9.7 Low 14.0-18.0 Chem I HD 04/28/2019 N2N/CCD Import Albumin 3.2 Low 3.5-5.0 Calcium 8.7 8.4-10.2 Chloride 101 98-107 Co2 26 22-33 Phosphorus 5.2 High 2.5-4.5 Potassium 4.0 3.5-5.0 Iron Panel 04/28/2019 N2N/CCD Import Iron 58 Low 65-170 Iron Saturation 20 20-55 Tibc 283 228-428 Uibc <268 159-193 CBC Auto Diff 04/28/2019 N2N/CCD Import Nucleated Red Blood Cells % 0.0 Basophil % 1.0 Eosinophil % 0.9 Monocyte % 8.2 Lymphocyte % 15.2 Granulocyte % 74.7 Abs Nucleated RBC 0.0 Abs Basophils 0.1 0-0.2 Abs Eosinophils 0.1 0-0.6 Abs Monocytes 0.6 0-0.8 Abs Lymphocytes 1.1 1.0-4.8 Mean Corpuscular Hemoglobin 30 27-31 Abs Neutrophils 5.5 1.5-7.7 Mean Platelet Volume 8.3 7.4-10.4 Platelet Count 315 150-450 Red Cell Distribution Width 15 10-15 Mean Corpuscular HGB Conc 34 31-36 Mean Corpuscular Volume 88 80-97 Hematocrit 28 Low 35-47 Hemoglobin 9.7 Low 12.0-16.0 Red Blood Count 3.20 Low 3.70-4.87 White Blood Count 7.4 3.5-10.8 Comprehensive Metabolic 04/28/2019 N2N/CCD Import Albumin/Globulin Ratio 1.2 1-3 Panel Egfr 7.0 >60 Egfr Non- 5.8 >60 Ast 17 13-39 Alt 15 7-52 Alkaline Phosphatase 124 High 34-104 Total Bilirubin 0.20 0.2-1.0 Globulin 2.6 2-4 Total Protein 5.8 Low 6.4-8.9 Calcium 8.7 8.6-10.3 BUN/Creatinine Ratio 5.1 Low 8-20 One Over Creatinine 0.14 Creatinine 7.05 High 0.51-0.95 Blood Urea Nitrogen 36 High 6-24 Glucose 305 High 70-100 Anion Gap 11 2-11 Co2 Carbon Dioxide 26 22-32 Chloride 101 101-111 Potassium 4.0 3.5-5.0 Sodium 138 135-145 Albumin 3.2 3.2-5.2 Phosphorus 04/28/2019 N2N/CCD Import Phosphorus 5.2 High 2.5-5.0 Iron Iron Bind 04/28/2019 N2N/CCD Import Unsaturated Iron < 268 Cap Binding Iron 58 50-212 % Iron Saturation 20 15-55 Transferrin 202 Low 203-362 Total Iron Binding Capacity 283 250-450 Laboratory test 04/15/2019 [facility] Cytology SEE RESULT [address] [place] [address] [phone] Calcium 04/01/2019 N2N/CCD Import Calcium 9.5 8.7 - Corrected Corrected 10.4 Alt/SGPT 04/01/2019 N2N/CCD Import Alt/SGPT 18 10 - 49 Glucose 04/01/2019 N2N/CCD Import Glucose 187 High 70 - 99 CBC With 04/01/2019 N2N/CCD Import Basophils 0.5 Autodiff Neutrophils 67.3 Lymphocytes 22.6 Monocytes 6.9 Eosinophils 2.7 RDW 15.9 High 11.0 - 15.0 WBC 5.6 4.5 - 11.0 RBC 3.83 Low 4.20 - 5.40 Hematocrit 34.9 Low 37.0 - 47.0 Hemoglobin 11.6 Low 12.0 - 16.0 MCV 91.1 80.0 - 100.0 MCH 30.3 27.0 - 31.0 MCHC 33.2 32.0 - 36.0 Platelet-CT 377 150 - 400 Neuts-Abs 3782.26 2000 - 8800 Lymphs-Abs 1270.12 1100 - 4800 Monos-Abs 387.78 0 - 1100 Basos-Abs 28.10 0 - 400 Eosins-Abs 151.74 0 - 700 HCT Calc (HGBX3) 34.8 Low 37.0 - 47.0 Chem I HD 04/01/2019 N2N/CCD Import Calcium 8.9 8.7 - 10.4 Chloride 103 99 - 109 Co2 25 20 - 31 LDH, Total 221 120 - 246 Phosphorus 4.9 2.4 - 5.1 Potassium 4.9 3.5 - 5.5 Ast/Sgot 15 0 - 34 Protein - Total 5.6 Low 5.7 - 8.2 A/G Ratio 1.3 1 - 2.5 Globulin 2.4 0.9 - 5 Caxphos Product 43.6 21 - 53 Caxphos Corrected 46.6 21 - 53 Alk Phos 145 High 46 - 116 Albumin 3.2 3.2 - 4.8 0416 04/01/2019 N2N/CCD Import BUN 52 High 9 - 23 Creatinine 6.48 High 0.50 - 1.10 NPCR PD 0.92 Creat-PD 2.36 Urea-PD 36 Urea CLR Ur/Bsa 3.9 Low 64 - 99 Cre CLR Ur/Bsa 7 Low 75 - 115 Urea CLR Ur 4.0 Minuts Collctd-Ur 1440 Tot.Vol.-Urine 750 Tot.Vol.-PDF 73491 Urea Gen Rate 9.9 Urea Nit Urine 403 Creat-Ur 95.09 Bsa (Lisa) 1.79 Body WT (LBS) 162 Height (Inches) 64 TBW David 33.44 Pna (PD) 65.1 Npna-PD 1.13 Tamela (PD) 6.7 Min Goal:KT/V PD 2.1 PCR PD 53.0 Amputation Factor 0 Cre CLR Ur 8 Low 88 - 128 L/WK/1.73 Resid cc 56.89 L/WK PDF cc 25.75 L/WK/1.73 Total cc 81.77 L/WK Resid cc 58.86 L/WK/1.73 PDF cc 24.88 L/WK Total cc 84.61 KT/V PDF 1.46 KT/V Residual 1.22 KT/V Total PD 2.68 Iron Panel 04/01/2019 N2N/CCD Import Iron 77 50 - 170 Iron Saturation 29 16 - 46 Tibc 265 250 - 450 Uibc 188 80 - 375 Lipid Profile 04/01/2019 N2N/CCD Import Cholesterol 175 0 - 199 Triglycerides 114 0 - 149 HDL 68 High 40 - 60 Chol/HDL Ratio 2.6 Low 3.3 - 5 LDL 84 0 - 99 VLDL-Chol (Calc) 23 0 - 29 Aluminum 03/18/2019 N2N/CCD Import Aluminum <10 0 - 9 Hep B Surfce AB 03/18/2019 N2N/CCD Import Hep B Surfce AB <3 0 - 9 Hep B Surfce Ag 03/18/2019 N2N/CCD Import Hep B Surfce Ag Neg Neg Ferritin 03/18/2019 N2N/CCD Import Ferritin 1548 High 10 - 291 Hemoglobin A1c % 03/18/2019 N2N/CCD Import Hemoglobin A1c % 9.0 High 0.0 - 5.6 Calcium Corrected 03/18/2019 N2N/CCD Import Calcium Corrected 9.4 8.7 - 10.4 Alt/SGPT 03/18/2019 N2N/CCD Import Alt/SGPT 50 High 10 - 49 Glucose 03/18/2019 N2N/CCD Import Glucose 192 High 70 - 99 Creatinine 03/18/2019 N2N/CCD Import Creatinine 5.61 High 0.50 - 1.10 Lipid Profile 03/18/2019 N2N/CCD Import Cholesterol 206 High 0 - 199 Triglycerides 94 0 - 149 HDL 77 High 40 - 60 Chol/HDL Ratio 2.7 Low 3.3 - 5 LDL 110 High 0 - 99 VLDL-Chol (Calc) 19 0 - 29 Iron Panel 03/18/2019 N2N/CCD Import Iron 33 Low 50 - 170 Iron Saturation 13 Low 16 - 46 Tibc 249 Low 250 - 450 Uibc 216 80 - 375 Hcvpanelprotoco 03/18/2019 N2N/CCD Import Hep C AB Reflex >11.00 High 0.00 - 0.79 Rna Hep C TND Chem I HD 03/18/2019 N2N/CCD Import Alk Phos 145 High 46 - 116 Albumin 3.2 3.2 - 4.8 Calcium 8.8 8.7 - 10.4 Chloride 104 99 - 109 Co2 29 20 - 31 LDH, Total 232 120 - 246 Phosphorus 5.1 2.4 - 5.1 Potassium 4.2 3.5 - 5.5 Ast/Sgot 36 High 0 - 34 Protein - Total 5.2 Low 5.7 - 8.2 A/G Ratio 1.6 1 - 2.5 Globulin 2.0 0.9 - 5 Caxphos Product 44.9 21 - 53 Caxphos Corrected 47.9 21 - 53 CBC With Autodiff 03/18/2019 N2N/CCD Import Neuts-Abs 3591.18 2000 - 8800 Lymphs-Abs 1433.10 1100 - 4800 Monos-Abs 455.22 0 - 1100 Basos-Abs 22.48 0 - 400 Eosins-Abs 118.02 0 - 700 HCT Calc (HGBX3) 32.1 Low 37.0 - 47.0 Basophils 0.4 Neutrophils 63.9 Lymphocytes 25.5 Monocytes 8.1 Eosinophils 2.1 RDW 16.5 High 11.0 - 15.0 WBC 5.6 4.5 - 11.0 RBC 3.77 Low 4.20 - 5.40 Hematocrit 34.0 Low 37.0 - 47.0 Hemoglobin 10.7 Low 12.0 - 16.0 MCV 90.1 80.0 - 100.0 MCH 28.3 27.0 - 31.0 MCHC 31.4 Low 32.0 - 36.0 Platelet-CT 279 150 - 400 Lipid Profile 03/04/2019 [facility] Triglycerides 101 mg/dL 2 (Trig/Chol/HDL) [address] [place] [address] [phone] Cholesterol 189 mg/dL 3 HDL Cholesterol 62.4 mg/dL 4 LDL Cholesterol 106 mg/dL 5 Comp Metabolic 03/04/2019 [facility] Sodium 137 mmol/L Normal 135-[address] [place] [address] [phone] Potassium 3.9 mmol/L Normal 3.5-5.0 Chloride 99 mmol/L Low 101-111 Co2 Carbon Dioxide 34 mmol/L High 22-32 Anion Gap 4 mmol/L Normal 2-11 Glucose 171 mg/dL High 70-100 Blood Urea Nitrogen 9 mg/dL Normal 6-24 Creatinine 2.26 mg/dL High 0.51-0.95 BUN/Creatinine Ratio 4.0 Low 8-20 Calcium 9.3 mg/dL Normal 8.6-10.3 Total Protein 5.5 g/dL Low 6.4-8.9 Albumin 2.8 g/dL Low 3.2-5.2 Globulin 2.7 g/dL Normal 2-4 Albumin/Globulin Ratio 1.0 Normal 1-3 Total Bilirubin 0.30 mg/dL Normal 0.2-1.0 Alkaline Phosphatase 147 U/L High 34-104 Alt 43 U/L Normal 7-52 Ast 53 U/L High 13-39 Egfr Non- 21.6 >60 Egfr 26.1 >60 6 VM (KT/V Mean Vol) 03/03/2019 N2N/CCD Import VM (KT/V Mean Vol) 43.8 KT/V Prescribed 03/03/2019 N2N/CCD Import KT/V Prescribed 2.16 SPKT/V Total 03/03/2019 N2N/CCD Import SPKT/V Total 1.33 NPCR HD Ukm 03/03/2019 N2N/CCD Import NPCR HD Ukm 0.28 Gender 03/03/2019 N2N/CCD Import Gender F Race 03/03/2019 N2N/CCD Import Race B Amputation Factor 03/03/2019 N2N/CCD Import Amputation Factor 0.000 TBW (David) 03/03/2019 N2N/CCD Import TBW (David) 34.59 STDKRT/V Renal 03/03/2019 N2N/CCD Import STDKRT/V Renal N/A STDKT/V Total 03/03/2019 N2N/CCD Import STDKT/V Total N/A HRS/Week Treated 03/03/2019 N2N/CCD Import HRS/Week Treated 3.0 Blood Flow-QWB 03/03/2019 N2N/CCD Import Blood Flow-QWB 407 CBC With Autodiff 03/03/2019 N2N/CCD Import Eosinophils 0.9 RDW 14.9 11.0 - 15.0 WBC 9.0 4.5 - 11.0 RBC 3.87 Low 4.20 - 5.40 Hematocrit 34.0 Low 37.0 - 47.0 Basophils 0.6 Neutrophils 74.9 Lymphocytes 16.4 Monocytes 7.2 Hemoglobin 11.0 Low 12.0 - 16.0 MCV 87.9 80.0 - 100.0 MCH 28.3 27.0 - 31.0 MCHC 32.2 32.0 - 36.0 Platelet-CT 389 150 - 400 Neuts-Abs 6748.49 2000 - 8800 Lymphs-Abs 1477.64 1100 - 4800 Monos-Abs 648.72 0 - 1100 Basos-Abs 54.06 0 - 400 Eosins-Abs 81.09 0 - 700 HCT Calc (HGBX3) 33.0 Low 37.0 - 47.0 Chem 1 W/O CA/P 03/03/2019 N2N/CCD Import Alk Phos 134 High 46 - 116 Albumin 2.9 Low 3.2 - 4.8 Chloride 92 Low 99 - 109 Co2 31 20 - 31 LDH, Total 253 High 120 - 246 Potassium 3.5 3.5 - 5.5 Ast/Sgot 52 High 0 - 34 Protein - Total 4.8 Low 5.7 - 8.2 A/G Ratio 1.5 1 - 2.5 Globulin 1.9 0.9 - 5 KT/V By Ukm Panel 03/03/2019 N2N/CCD Import Urr 72 65 - 100 BUN 25 High 9 - 23 BUN - Post 7 Low 9 - 23 CA/Phos W/Products 03/03/2019 N2N/CCD Import Calcium 8.0 Low 8.7 - 10.4 Phosphorus 4.5 2.4 - 5.1 Caxphos Product 36.0 21 - 53 Caxphos Corrected 40.1 21 - 53 Dialyzer Series 03/03/2019 N2N/CCD Import Dialyzer Series Revaclr Dialyzer Model 03/03/2019 N2N/CCD Import Dialyzer Model 300 Dialyzer Make(MFG) 03/03/2019 N2N/CCD Import Dialyzer Make(MFG) Gambro Dialyzer Flow-qd 03/03/2019 N2N/CCD Import Dialyzer Flow-qd 600 Dialyzer Nikolai 03/03/2019 N2N/CCD Import Dialyzer Nikolai 1209 Minutes Dialyzed 03/03/2019 N2N/CCD Import Minutes Dialyzed 213 Calcium Corrected 03/03/2019 N2N/CCD Import Calcium Corrected 8.9 8.7 - 10.4 SPKDT/V Dialysis 03/03/2019 N2N/CCD Import SPKDT/V Dialysis 1.33 Ekdt/V Dialysis 03/03/2019 N2N/CCD Import Ekdt/V Dialysis 1.14 STDKDT/V Dialysis 03/03/2019 N2N/CCD Import STDKDT/V Dialysis N/A Age Of Patient 03/03/2019 N2N/CCD Import Age Of Patient 68 Bsa (Osborne) 03/03/2019 N2N/CCD Import Bsa (Osborne) 1.79 Weight-Post (KG) 03/03/2019 N2N/CCD Import Weight-Post (KG) 71.8 Weight-Pre (KG) 03/03/2019 N2N/CCD Import Weight-Pre (KG) 72.5 Height (Inches) 03/03/2019 N2N/CCD Import Height (Inches) 64 Weight (KG) 03/03/2019 N2N/CCD Import Weight (KG) 74.0 # Days/WK Treated 03/03/2019 N2N/CCD Import # Days/WK Treated 3 2 - 3 VT (KT/V TX Vol) 03/03/2019 N2N/CCD Import VT (KT/V TX Vol) 44.8 1 SEE RESULT BELOW Name: KRISTAL MOREIRA Serjio : [address]: Conchita De León MD Acct: [id number] Unit: [id number] AGE: 68 Location: [facility] Re04/15/19 SEX: F Status: REG REF SPEC: [id number] VINNIE: 04/15/19-1629 [facility] DR: Conchita De León MD REQ: [id number] RECD: 04/15/19 STATUS: SOUT _ ORDERED: TP IMAGE ANALYS, HPV/Thin Prep COMMENTS: [id number] Negative for Intraepithelial lesion or Malignancy Date Time Test Result Flag (u) Normal Range 04/15/19 1629 HPV TOO Negative Negative The high-risk HPV types detected by the assay include: 16, 18, 31, 33, 35, 39, 45, 51, 52, 56, 58, 59, 66, and 68. A. Ectocervical/Endocervical Specimen Adequacy: Satisfactory of evaluation Transformation zone component identified Patient Information: HPV: High risk HPV RNA testing regardless of pap results. Actual Specimen Date: 04/15/19 LMP If Unknown: 1999 ?: N Post Menopausal?: Y Hysterectomy?: N Previous Abnormal Pap Smears?:N Signed by and Reported on: MOIZ Cosme (ASCP) 2059 This Pap test was evaluated with the assistance of the ThinPrep Test Imaging System. Due to cytologic findings at the electrical engineering designer microscope, comprehensive manual rescreening by a Database Analyst may be required. The Pap Smear is a screening test designed to aid in the detection of premalignant and malignant conditions of the uterine cervix. It is not a diagnostic procedure and should not be used as the sole means of detecting cervical cancer. Both false- positive and false- negative reports do occur. Depending on your risk status, a Pap smear should be obtained and evaluated every 1-3 years. END OF REPORT DEPARTMENT OF PATHOLOGY, [address] [place] [address] Delmar Cannon M.D. Director [facility] # [id number] 2 Desirable: <150 Borderline High: 150-199 High: 200-499 Very High: >500 3 Desirable: <200 Borderline High: 200-239 High: >239 4 Low: <40 Desirable: 40-60 High: >60 5 Desirable: <100 Near Optimal: 100-129 Borderline High: 130-159 High: 160-189 Very High: >189 6 Because ethnic data is not always readily [...] 15-29 5 Kidney failure <15 (or dialysis) Procedures Date Code Description Status 08/23/2019 76634 [facility] Per Full Month 20 Yrs Completed 06/08/2019 63422 Treadmill Interp/Report Only Completed 06/08/2019 91500 Stress Test Supervsn W/Out I/R Completed 06/01/2019 78667 Echocardiogram, Limited Study Completed 06/01/2019 45217 Echocardiogram, Limited Study Completed 05/16/2019 49798 EKG Tracing & Interpretation Completed 05/03/2019 91850 Removal Of Tunneled Central Venous Cath W/O Completed Subcutaneous Port/MEAT PACKER 04/23/2019 07897 [facility] Per Full Month 20 Yrs Completed 03/24/2019 [id number] Mammogram Completed 03/09/2019 16154 Echocardiogram, Limited Study Completed 03/09/2019 94191 Echocardiogram, Limited Study Completed 10/05/2018 [id number] Bone Mineral Density Test Completed 10/13/2017 [id number] Mammogram Completed 10/16/2016 [id number] Diabetic Retinal Eye Exam Completed 10/03/2016 [id number] Mammogram Completed 03/12/2016 [id number] Colonoscopy Completed 05/08/2015 [id number] Mammogram Completed 09/30/2013 [id number] Mammogram Completed Medical Devices Description No Information Available Encounters Type Date Location Provider Dx Diagnosis Office Visit 06/27/2019 [facility] Marcy Mcintosh, I31.3 Pericardial 3:00p [employer] effusion (noninflammatory) I34.0 Nonrheumatic mitral (valve) insufficiency I50.30 Unspecified diastolic (congestive) heart failure Z01.810 Encounter for preprocedural cardiovascular examination Office Visit 06/07/2019 2:00p [facility] Conchita De León, 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 knee M25.461 Effusion, right knee M17.11 Unilateral primary osteoarthritis, right knee M21.061 Valgus deformity, not elsewhere classified, right knee Office Visit 04/21/2019 11:00a Surgical Manjeet Bedolla N18.6 End stage [facility] MD Sameer, disease FACS Office Visit 03/07/2019 4:20p [facility] Internal Conchita De León, E11.22 [facility] disease I10 Essential (primary) hypertension I12.0 Hyp chr kidney disease w stage 5 chr kidney disease or Esrd L84 Corns and callosities N60.02 Solitary cyst of left breast N18.5 Chronic kidney disease, stage 5 Office Visit 03/04/2019 3:00p [facility] Sreedhar Camp N18.6 End stage [facility] Salome Mooney renal disease I31.3 Pericardial effusion (noninflammatory) I10 Essential (primary) hypertension I34.0 Nonrheumatic mitral (valve) insufficiency I12.0 Hyp chr kidney disease w stage 5 chr kidney disease or Esrd Assessments Date Code Description Provider 08/26/2019 M25.561 Pain in right knee Lisa Jarvis M.D. 08/26/2019 M25.461 Effusion, right knee Lisa Jarvis M.D. 08/26/2019 M17.11 Unilateral primary osteoarthritis, Lisa Jarvis M.D. right knee 08/25/2019 Z01.818 Encounter for other preprocedural Sri Taylor MD examination 08/25/2019 E11.9 Type 2 diabetes mellitus without Sri Taylor MD complications 08/25/2019 N18.6 End stage renal disease Sri Taylor MD 08/25/2019 Z01.810 Encounter for preprocedural Sri Taylor MD cardiovascular examination 08/23/2019 N18.6 End stage renal disease Kian Doyle MD 06/27/2019 I31.3 Pericardial effusion (noninflammatory) Marcy Mcintosh NP 06/27/2019 I34.0 Nonrheumatic mitral (valve) Marcy Mcintosh NP insufficiency 06/27/2019 I50.30 Unspecified diastolic (congestive) Marcy Mcintosh NP heart failure 06/27/2019 Z01.810 Encounter for preprocedural Marcy Mcintosh NP cardiovascular examination 06/08/2019 I31.3 Pericardial effusion (noninflammatory) Sreedhar Mooney M.D. 06/07/2019 E11.22 Type 2 diabetes mellitus with diabetic Conchita De León MD chronic kidney diseas 06/01/2019 I31.3 Pericardial effusion (noninflammatory) Sreedhar Mooney M.D. 06/01/2019 I31.3 Pericardial effusion (noninflammatory) [facility] 06/01/2019 R00.2 Palpitations [facility] Schedule 06/01/2019 Z01.810 Encounter for preprocedural [facility] Schedule cardiovascular examination 06/01/2019 I34.0 Nonrheumatic mitral (valve) [facility] Schedule insufficiency 05/16/2019 R00.2 Palpitations Sreedhar Mooney M.D. 05/16/2019 I31.3 Pericardial effusion (noninflammatory) Marcyfede Mcintosh NP 05/16/2019 R00.2 Palpitations Marcy Mcintosh NP 05/16/2019 Z01.810 Encounter for preprocedural Marcy Mcintosh NP cardiovascular examination 05/16/2019 I34.0 Nonrheumatic mitral (valve) Marcy Mcintosh NP insufficiency 05/16/2019 I10 Essential (primary) hypertension Marcy Mcintosh, MARK 05/10/2019 N18.6 End stage renal disease Libia Raman, MARK 05/10/2019 Z48.02 Encounter for removal of sutures Libia Raman, MARK 05/06/2019 M25.561 Pain in right knee Lisa Jarvis M.D. 05/06/2019 M25.461 Effusion, right knee Lisa Jarvis M.D. 05/06/2019 M17.11 Unilateral primary osteoarthritis, Lisa Jarvis M.D. right knee 05/06/2019 M21.061 Valgus deformity, not elsewhere Lisa Jarvis M.D. classified, right knee 05/03/2019 N18.6 End stage renal disease Manjeet Estrella MD, FACS 05/03/2019 Z49.01 Encounter for fitting and adjustment Manjeet Estrella MD, FACS of extracorporeal dialysis catheter 04/23/2019 N18.6 End stage renal disease Ximena Ramsey MD 04/21/2019 N18.6 End stage renal disease Manjeet Estrella MD, FACS 04/15/2019 Z12.4 Encounter for screening for malignant Conchita De León MD neoplasm of cervix 04/15/2019 M17.11 Unilateral primary osteoarthritis, Conchita De León MD right knee 03/09/2019 I31.3 Pericardial effusion (noninflammatory) Sreedhar Mooney M.D. 03/09/2019 I31.3 Pericardial effusion (noninflammatory) [facility] Schedule 03/07/2019 E11.22 Type 2 diabetes mellitus with diabetic Conchita De León MD chronic kidney diseas 03/07/2019 I10 Essential (primary) hypertension Conchita De León MD 03/07/2019 I12.0 Hypertensive chronic kidney disease Conchita De León MD with stage 5 chronic kid 03/07/2019 L84 Corns and callosities Conchita De León MD 03/07/2019 N60.02 Solitary cyst of left breast Conchita De León MD 03/07/2019 N18.5 Chronic kidney disease, stage 5 Conchita De León MD 03/04/2019 N18.6 End stage renal disease Sreedhar Mooney M.D. 03/04/2019 I31.3 Pericardial effusion (noninflammatory) Sreedhar Mooney M.D. 03/04/2019 I10 Essential (primary) hypertension Sreedhar Mooney M.D. 03/04/2019 I34.0 Nonrheumatic mitral (valve) Sreedhar Mooney M.D. insufficiency 03/04/2019 I12.0 Hypertensive chronic kidney disease Sreedhar Mooney M.D. with stage 5 chronic kid Plan of Treatment Future Appointment(s):09/23/2019 3:30 pm - Lisa Jarvis M.D. at [facility] at [id number]/08/2019 8:30 am - Omid Gonzalez PA-C at [facility] at Raedqi2409/08/2019 8:30 am - WILFRIDO Llamas at [facility] at Pfygdc9109/08/2019 8:30 am - Lisa Jarvis M.D. at [facility] at Dpyqoq5010/31/2019 2:40 pm - Sreedhar Mooney M.D. at [facility]08/26/2019 - Lisa Jarvis M.D.M25.561 Pain in right kneeFollow up:Follow up: 2 weeks after tbexyduK38.461 Effusion, right kneeM17.11 Unilateral primary osteoarthritis, right knee Functional Status Description No Information Available Mental Status Description No Information Available Referrals Refer to Dr Reason for Referral Status Appt Date Ha Billy MD pt with type 2 DM, previously well controlled, Sent high glucose levels since starting peritoneal dialysis [address] [place] [address] [phone] Lisa Jarvis MD painful OA. interventions delayed bc of CKD Sent 2018 [address] [facility] [place] [address] [place] [address] [phone] Chel Abdullahi, CHUN pt with DM, last A1c 7.5%, on dialysis, has Sent painful corns and callosities, no neuropathy [address] [facility] [address] [phone]
[2019-09-08] MEDS ORDERED: Famotidine IV* 10 MG/ML 2 ML (20 mg) ONE (06:41)
[2019-09-08] MEDS ORDERED: ceFAZolin 2 GM PREMIX in ORs 2 GM/50 ML BAG ONE (06:41)
[2019-09-08] MEDS ORDERED: Buffered Lidocaine 1% SYRIN* 1 ML/SYRINGE INTRADERM ONE (06:41)
[2019-09-08] MEDS ORDERED: Acetaminophen TAB* 325 MG ONE (06:41)
[2019-09-08] MEDS ORDERED: Gabapentin CAP(*) 300 MG ONE (06:41)
[2019-09-08] MEDS ORDERED: Dexamethasone IV* 4 MG/ML 1 ML (4 MG) ONE (07:25)
[2019-09-08] MEDS ORDERED: Midazolam* 1 MG/ML 10 ML VIAL (10 MG) ONE (07:25)
[2019-09-08] MEDS ORDERED: Lidocaine 2% PF * 5 ML VIAL ONE ×2 (07:25→08:57)
[2019-09-08] MEDS ORDERED: Propofol* 10 MG/ML 20 ML BTL ONE ×2 (07:25→08:57)
[2019-09-08] MEDS ORDERED: fentaNYL* 50 MCG/ML 5 ML VIAL (250 MCG VIAL) ONE (07:25)
[2019-09-08] MEDS ORDERED: Cisatracurium* 2 MG/ML MDV 5 ML ONE (07:25)
[2019-09-08] MEDS ORDERED: Phenylephrine 10 MG/ML VIAL* 1 ML VIAL ONE (07:25)
[2019-09-08] MEDS ORDERED: KETAMINE HCL* 50 MG/ML 10 ML VIAL ONE (07:25)
[2019-09-08] MEDS ORDERED: Ondansetron INJ* 2 MG/ML VIAL ONE (07:25)
[2019-09-08] MEDS ORDERED: ROPIVACAINE 5 MG/ML 30 ML BTL (0.5%) ONE ×2 (07:25→08:18)
[2019-09-08] MEDS ORDERED: Insulin REGULAR(*) 1 UNITS UNIT IV PUSH ONE (07:38)
[2019-09-08] MEDS ORDERED: Insulin REGULAR(*) 1 UNITS UNIT ONE (07:50)
[2019-09-08] MEDS ORDERED: EPHEDrine (Pressors)* 50 MG/ML VIAL ONE (10:11)
[2019-09-08] MEDS ORDERED: Ketorolac INJ* 30 MG/ML 1 ML VIAL ONE (10:18)
[2019-09-08] MEDS ORDERED: Neostigmine Methylsulfate* 1 MG/ML 10 ML VIAL (1 mg/ml) ONE (10:21)
[2019-09-08] MEDS ORDERED: Glycopyrrolate IV* 0.2 MG/ML 1 ML VIAL ONE (10:21)
[2019-09-08] MEDS ORDERED: Naloxone* 0.4 MG/ML 1 ML VIAL IV PRN (10:25)
[2019-09-08] MEDS ORDERED: Ondansetron INJ* 2 MG/ML VIAL IV PRN ×2 (10:25→10:50)
[2019-09-08] MEDS ORDERED: Polyethylene Glycol 3350* 17 GM PACKET PO PRN (10:50)
[2019-09-08] MEDS ORDERED: Magnesium Hydroxide LIQ* 30 ML UDC PO PRN (10:50)
[2019-09-08] MEDS ORDERED: Cyclobenzaprine TAB* 10 MG PO PRN (10:50)
[2019-09-08] MEDS ORDERED: diPHENhydraMINE IV* 50 MG/ML 1 ml VIAL (BENADRYL) IV PRN (10:50)
[2019-09-08] MEDS ORDERED: Ondansetron TAB* 4 MG PO PRN (10:50)
[2019-09-08] MEDS ORDERED: diPHENhydraMINE PO* 25 MG PO PRN (10:50)
[2019-09-08] MEDS ORDERED: oxyCODONE/Acetamin 5/325 MG* TAB PO PRN (10:50)
[2019-09-08] MEDS ORDERED: Ondansetron ODT TAB* 4 MG PO PRN (10:50)
[2019-09-08] MEDS ORDERED: diPHENhydraMINE LIQ* 12.5 MG/5 ML UDC PO PRN (10:50)
[2019-09-08] MEDS ORDERED: traMADol TAB* 50 MG PO PRN ×2 (10:50→14:19)
[2019-09-08] MEDS ORDERED: ceFAZolin 1 GM ADVAN(*) 1 GM in NS 0.9% 50 ML* 50 ML IVPB SCH (11:00)
[2019-09-08] MEDS ORDERED: fentaNYL* 50 MCG/ML 2 ML VIAL (100 MCG VIAL) ONE (11:19)
[2019-09-08] MEDS: fentaNYL* 50 MCG/ML 2 ML VIAL (100 MCG VIAL) IV PRN ×2 (11:22→11:55)
[2019-09-08] MEDS ORDERED: Dextrose 50% VIAL 50 ml IV PUSH PRN (11:56)
[2019-09-08] MEDS ORDERED: Enoxaparin(*) 30 MG/0.3 ML SYR SUBCUT SCH (12:00)
[2019-09-08] MEDS ORDERED: traMADol TAB* 50 MG ONE (12:27)
[2019-09-08] MEDS: oxyCODONE TAB* 5 MG TAB PO PRN ×2 (13:38→19:58)
[2019-09-08] MEDS: Acetaminophen TAB* 325 MG PO SCH ×2 (13:39→23:21)
[2019-09-08] MEDS: Lactated Ringers 1000 ML Bag* 1,000 ML IV SCH ×2 (13:41→23:12)
[2019-09-08] MEDS ORDERED: LORazepam TAB(*) 0.5 MG PO PRN (14:02)
--- NOTE | 2019-09-08 14:14 | PN ---
Progress Note - Progress Note Date of Service: 09/08/19 Note: Discussed patient with her PCP Dr Taylor for recommendations on her small intestinal AVM with slow bleed. Recommends reversible anticoag, lovenox 30 mg sq qd until therapeutic on coumadin with urgent report of any bright red or dark stool. Keep coumadin dosing low to prevent supratherapeutic INR, due to CKD on peritoneal dialysis. Dialysis nightly, should give coumadin in the mornings for approx 12 hr window between next session of dialysis. Important to try to prevent need for pRBC transfusion. Follow up with Dr Taylor 1 week post op. Discussed med mgmt with pharmacy, will decrease ancef dosing to q12 and provide 24 hr post op coverage. Jamal decrease tramadol to q 12 hr. Pt seen POD 0 at bedside. In pain but tolerable. Denies CP, SOB, dizziness, nausea. DF/PF intact, DP2+, sensation intact to light touch distally, knee dressing CDI.
--- NOTE | 2019-09-08 15:16 | CONS ---
CC: Dr. Lisa Jarvis; Dr. Conchita De León * CONSULTATION REPORT: DATE OF CONSULT: 09/08/19 REQUESTING PHYSICIAN IN CONSULTATION: Dr. Lisa Jarvis. PRIMARY CARE PROVIDER: Dr. Conchita De León. ATTENDING PHYSICIAN: Dr. Aydee Pal (dictated by WILFRIDO Foreman). REASON FOR CONSULT: Co-medical management. HISTORY OF PRESENT ILLNESS: Ms. 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 The patient is seen postoperatively in her room. She is sleeping, but wakes easily and complains of 10/10 pain in the right knee. She has no other complaints at this time. PAST MEDICAL HISTORY: 1. Hypertension. 2. Hyperlipidemia. 3. Diabetes mellitus type 2. 4. End-stage renal disease, on peritoneal dialysis. 5. Anemia of chronic disease/iron-deficiency anemia. 6. Small bowel AV malformation. 7. History of hepatitis C virus. 8. History of right breast cancer, status post lumpectomy. PAST SURGICAL HISTORY: Left total knee, right breast lumpectomy, bilateral cataracts, tubal ligation, carpal release. HOME MEDICATIONS: 1. Acetaminophen 650 mg p.o. q.4 hours p.r.n. 2. Amlodipine 10 mg p.o. daily. 3. Calcitriol 0.25 mcg p.o. daily. 4. Clonidine 0.3 mg p.o. t.i.d. 5. Diltiazem 240 mg p.o. daily. 6. Insulin aspart p.r.n. hyperglycemia. 7. Insulin glargine 10 to 12 units subcu daily based on fasting blood glucose. 8. Isosorbide mononitrate ER 30 mg p.o. at bedtime. 9. Labetalol 300 mg p.o. b.i.d. 10. Lorazepam 0.5 mg p.o. b.i.d. p.r.n., MDD 2. 11. Multivitamin 1 tab p.o. at bedtime. 12. Omeprazole 20 mg p.o. b.i.d. 13. Terazosin 10 mg p.o. at bedtime. DRUG ALLERGIES: ENALAPRIL, VERAPAMIL, HYDRALAZINE. FAMILY HISTORY: Obtained from chart. Mother at the age of 38 from complications from diabetes. Father at the age of 54 from NV. The patient had 1 brother who had an NV. No family history of cancer. SOCIAL HISTORY: The patient quit smoking in 2017. She no longer uses alcohol. 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 PHYSICAL EXAM: General: Ms. Moreira is a well-developed, well-nourished, overweight black woman, who is seen sleeping in bed, but wakes easily. She appears to be mildly uncomfortable, but in no acute distress. HEENT: PERRL. EOMI. Sclerae are nonicteric without injection. Hearing is grossly intact. Oral mucous membranes are dry. The pharynx is clear without erythema or exudate. Tongue is at midline. Palate elevates symmetrically. Cardiovascular: Regular rate and rhythm with S1, S2 present. No murmurs, rubs, clicks, or gallops. There is no JVD or peripheral edema. Radial and pedal pulses are palpable. Pulmonary: Symmetrical chest expansion without use of accessory muscles. Clear to auscultation bilaterally without rhonchi, wheeze, or rales. Abdomen: Bowel sounds in all quadrants. Soft. There is mild diffuse tenderness to palpation. Musculoskeletal: The right knee has a clean, dry, and intact dressing in place with overlying Cryo unit. SCDs to bilateral lower extremities. Sensation intact distally to bilateral lower extremities. Pedal pulses palpable. ASSESSMENT AND PLAN: Ms. Moreira is a 69-year-old female with a past medical history of hypertension; hyperlipidemia; diabetes, insulin dependent; small bowel arteriovenous malformation; end-stage renal disease, requiring peritoneal dialysis, who presented to [facility] today for an elective right total knee arthroplasty. The patient will be admitted for: 1. Right total knee arthroplasty. Management per Ortho. Continue pain management, bowel regimen, physical therapy, weightbearing as tolerated. 2. Hypertension. Continue home medications, amlodipine, diltiazem, isosorbide , labetalol. 3. Diabetes mellitus. The patient has been placed on 8 units of glargine in the morning. She will also be placed on lispro sliding scale with fingersticks a.c. 4. End-stage renal disease. Continue peritoneal dialysis as at home. 5. Arteriovenous malformation with chronic bleeding. This should be considered when choosing anticoagulation. 6. Code status: Full code. 7. DVT prophylaxis: Per Ortho, enoxaparin 30 subcu q.24 hours. TIME SPENT: Approximately 30 minutes was spent on this consultation, greater than half that time was spent [id number] with the patient. The case has been discussed with my attending, Dr. Pal, who is in agreement with the plan of care. JOSE POST, WILFRIDO [id number]/CPS #: [id number] ALLIE
--- NOTE | 2019-09-08 17:34 | OP ---
Operative Report - Blank - Operative Report Date of Operation: 09/08/19 Note: ELDA COTTO 1950 Date of Surgery: 09/08/19 Lisa Jarvis MD [employer] Chief: Conrado ANNA did help throughout the procedure with preparation of the knee, wound retraction, manipulation of the knee, and wound closure. Anesthesiologist: Gideon Diaz MD Anesthesia Type: Spinal Preoperative Diagnosis: Right severe degenerative osteoarthritis of the knee Postoperative Diagnosis: As above Procedure Performed: Right Total Knee Arthroplasty Tourniquet time: 40 minutes Complications: None Specimen: Bone and cartilage from the right knee joint sent to pathology. Hardware Used: Cemented To and Nephew total knee hardware was used - For the femur a size 5 right oxinium legion posterior stabilized femoral component, for the tibia a size 4 right rafa II tibial baseplate, for the insert a size 9mm 3-4 posterior stabilized articular polyethylene insert, and for the patella a size 32 3-peg all poly patella. Brief History/Indication: ELDA COTTO was known in clinic and had a history of severe right knee pain and swelling. She failed conservative treatment with anti-inflammatories, pain pills, intra-articular injections and physical therapy. She elected to undergo right total knee arthroplasty due to continued pain and decreased quality of life. Radiographs showed severe end stage osteoarthritis of the knee with bone on bone contact. Informed consent was obtained from the patient. She understood the risks of surgery included but were not limited to: bleeding, infection, damage to nearby structures, intraoperative fracture, nerve palsy, failure of the hardware, early loosening, knee stiffness or loss of motion, anesthesia complications, stroke, heart attack , blood clot and . She wished to proceed. Intra-Operative Findings: Intraoperatively the patient was noted to have severe loss of cartilage in all 3 compartments of the knee. Description of the Procedure: ELAD COTTO was identified in the preanesthesia unit. Her right knee was marked as the correct operative side. Informed consent was signed and placed in the chart. The patient was taken to the operating room and placed under anesthesia without complication. A hernández catheter was placed. A tourniquet was placed on the right thigh. The right lower extremity was prepped and draped in the usual sterile fashion. Preoperative time-out was made to correctly identify the patient, side and site. Appropriate intraoperative antibiotics were given within one hour of incision. Tourniquet was inflated. A midline incision was made and carried sharply down to the extensor mechanism. A new 10 blade was used to make a standard medial parapatellar arthrotomy. The patella was subluxed laterally. Electrocautery was used to dissect soft tissue off the superomedial tibia to the midsagittal plane. The knee was flexed up. The anterior horn of the lateral meniscus and the ACL were sharply incised. A drill was used to enter the distal femur. The intramedullary distal femoral cutting guide was pinned on the distal femur. The oscillating saw was used to make the distal femoral cut. The external rotation guide was pinned on the distal femur and the distal femur was sized to a size 5. The size 5 multi-cutting jig was pinned on the distal femur. The oscillating saw was used to make the appropriate 4 chamfer cuts. Next the PCL was completely released. The extramedullary tibial cutting guide was pinned on the proximal tibia and the oscillating saw was used to make the proximal tibial cut perpendicular to the mechanical axis of the tibia. The bone was carefully removed. The knee was brought out into full extension. The spacer block was placed and had excellent fit with the knee in full extension. The medial and lateral ligaments were well balanced. The flexion and extension gaps were well balanced. The knee was flexed up. Lamina bottle cleaner was placed both medially and laterally. Any remaining meniscus was removed with electrocautery. Curved osteotome was used to remove any posterior osteophytes. The tibial tray and drop tara were placed and confirmed a satisfactory tibial cut. The size 5 right femoral trial was impacted onto the distal femur. This trial had excellent fit and stability. The box for the posterior stabilized implant was prepared using a box cut osteotome and a reamer. Next a tibial tray trial and 9 mm insert trial was placed. The knee was taken through a range of motion and had full extension to 130 degrees of flexion. Patellofemoral tracking was satisfactory. The patella was inverted and sized to a size 32. Three peg holes were drilled through the size 32 drill guide. The trial patella was placed and the knee was taken through a range of motion. There was satisfactory patellofemoral tracking. All trials were removed. The tibia was subluxed anteriorly and sized to a size 4. The proximal tibial was prepared with a size 4 keel punch. All bony cut surfaces were irrigated with sterile saline and dried. Final implants were cemented into place starting with the tibia, followed by the femur, and last the patella. A 9 mm insert trial was placed and the knee was brought into full extension. Tourniquet was turned down and the knee was copiously irrigated with sterile saline. Electrocautery was used to obtain meticulous hemostasis. Once the cement had fully cured, the insert trial was removed. Any excess cement was removed from around the hardware and capsule. Final insert chosen was a 9 mm posterior stabilized Rafa II articular insert size 3-4. Stability of the insert was checked and noted to be stable. The extensor mechanism was closed using number 1 vicryls. The rest of the incision was closed in a layered fashion using 0 and 2-0 vicryls. The skin was closed using 3-0 nylon suture. Sterile xeroform, 4x4s and webril were used to cover the incision. Antoine wrap and cold pack were used to cover the dressings. The patients anesthesia was reversed without difficulty. She was taken to the PACU in stable condition. Intended weight-bearing will be as tolerated.
[2019-09-08] MEDS: Insulin LISPRO* 1 UNITS UNIT SUBCUT SCH (18:32)
[2019-09-08] MEDS ORDERED: Insulin LISPRO* 1 UNITS UNIT SUBCUT ONE ×2 (20:38→22:07)
[2019-09-08] MEDS: Insulin LISPRO* 1 UNITS UNIT SUBCUT ONE ×2 (20:52→21:41)
[2019-09-08] MEDS ORDERED: NS 0.9% 50 ML* 50 ML ONE (21:25)
[2019-09-08] MEDS: Pantoprazole TAB * 40 MG TAB PO SCH (21:31)
[2019-09-08] MEDS: Magnesium Hydroxide LIQ* 30 ML UDC PO SCH (21:32)
[2019-09-08] MEDS: Docusate CAP* 100 MG PO SCH (21:32)
[2019-09-08] MEDS: Terazosin CAP* 5 MG PO SCH (21:32)
[2019-09-08] MEDS: ceFAZolin 1 GM ADVAN(*) 1 GM in NS 0.9% 50 ML* 50 ML IVPB SCH (21:32)
[2019-09-08] MEDS: Isosorbide Mononitrate ER TAB* 30 MG PO SCH (22:36)
[2019-09-08] MEDS: cloNIDine TAB* 0.1 MG PO SCH (22:36)
[2019-09-08] MEDS: Labetalol TAB* 300 MG PO SCH (22:37)
[2019-09-09] MEDS: Acetaminophen TAB* 325 MG PO SCH ×3 (06:04→21:41)
[2019-09-09 06:41] LABS: Hematocrit 19 % (35-47); Hemoglobin 6.6 g/dL (12.0-16.0); Mean Platelet Volume 7.5 fL (7.4-10.4); Platelet Count 292 10^3/uL (150-450)
[2019-09-09 06:59] LABS: BUN/Creatinine Ratio 4.9 (8-20); Calcium 7.8 mg/dL (8.6-10.3); EGFR African American 6.3 (>60); EGFR Non-African American 5.2 (>60); Potassium 3.6 mmol/L (3.5-5.0)
[2019-09-09] MEDS: oxyCODONE TAB* 5 MG TAB PO PRN (07:18)
[2019-09-09] MEDS ORDERED: Warfarin TAB(*) 2 MG PO ONE (08:00)
[2019-09-09 08:04] LABS: Hematocrit 20 % (35-47); Hemoglobin 6.6 g/dL (12.0-16.0)
[2019-09-09] MEDS: Docusate CAP* 100 MG PO SCH ×2 (08:30→21:35)
[2019-09-09] MEDS: Diltiazem CD CAP* 240 MG PO SCH (08:30)
[2019-09-09] MEDS: cloNIDine TAB* 0.1 MG PO SCH ×3 (08:33→21:41)
[2019-09-09] MEDS: amLODIPine TAB* 5 MG PO SCH (08:33)
[2019-09-09] MEDS: Labetalol TAB* 300 MG PO SCH ×2 (08:34→21:41)
[2019-09-09] MEDS: Insulin GLARGINE(*) 1 UNITS UNIT SUBCUT SCH (08:34)
[2019-09-09] MEDS: Calcitriol CAP* 0.25 MCG PO SCH (08:34)
[2019-09-09] MEDS: Vitamin THERAPEUTIC TAB PO SCH (08:34)
[2019-09-09] MEDS: Insulin LISPRO* 1 UNITS UNIT SUBCUT SCH ×3 (08:34→17:23)
[2019-09-09] MEDS: Pantoprazole TAB * 40 MG TAB PO SCH ×2 (08:34→21:42)
[2019-09-09] MEDS ORDERED: Apixaban* 2.5 MG TAB PO SCH (09:00)
--- NOTE | 2019-09-09 09:21 | PN ---
Subjective Date of Service: 09/09/19 Interval History: Patient seen and examined at bedside. Ms. 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 She has just completed peritoneal dialysis; will be receiving transfusion this morning. Noted to be wearing oxygen but states her breathing feels fine. She denies fever/chills, SOB, CP, dizziness. She does report nausea , constipation (last BM 2-3 days ago). Pain to right knee well controlled. Family History: Unchanged from Admission Social History: Unchanged from Admission Past Medical History: Unchanged from Admission Objective Active Medications: Acetaminophen (Tylenol Tab*) 975 mg PO Q8HR [facility] Last Admin: 09/09/19 06:04 Dose: Not Given Amlodipine Besylate ([facility]vasc Tab*) [facility] Last Admin: 09/09/19 08:33 Dose: 10 mg Bisacodyl (Dulcolax Supp*) 10 mg MN DAILY PRN PRN Reason: CONSTIPATION Calcitriol (Rocaltrol Cap*) 0.25 mcg PO QAM [facility] Last Admin: 09/09/19 08:34 Dose: Not Given Clonidine HCl (Catapres Tab*) 0.3 mg PO TID [facility] Last Admin: 09/09/19 08:33 Dose: 0.3 mg Cyclobenzaprine HCl (Flexeril Tab*) 10 mg PO Q6H PRN PRN Reason: SPASMS Dextrose (Dextrose 50% Vial 50 Ml*) 25 ml IV PUSH .FOR FS < 60 - SS PRN PRN Reason: FS < 60 Diltiazem HCl (Cardizem Cd Cap*) 240 mg PO QAM [facility] Last Admin: 09/09/19 08:30 Dose: 240 mg Diphenhydramine HCl (Benadryl Iv*) 25 mg IV Q6H PRN PRN Reason: PRURITIS Diphenhydramine HCl (Benadryl Liq*) 12.5 mg PO Q6H PRN PRN Reason: PRURITIS Diphenhydramine HCl (Benadryl Po*) 25 mg PO Q6H PRN PRN Reason: PRURITIS Docusate Sodium (Colace Cap*) 100 mg PO BID [facility] Last Admin: 09/09/19 08:30 Dose: 100 mg Lactated Ringer's (Lactated Ringers 1000 Ml Bag*) 1,000 mls @ 100 mls/hr IV PER RATE [facility] Last Admin: 09/08/19 23:12 Dose: 100 mls/hr Insulin Glargine (Lantus(*)) 8 units SUBCUT QAM [facility] Last Admin: 09/09/19 08:34 Dose: 8 units Insulin Human Lispro (Humalog*) 0 units SUBCUT AC [facility]; Protocol Last Admin: 09/09/19 08:34 Dose: 4 units Isosorbide Mononitrate (Imdur Er Tab*) 30 mg PO QPM [facility] Last Admin: 09/08/19 22:36 Dose: 30 mg Labetalol HCl (Trandate Tab*) 300 mg PO BID [facility] Last Admin: 09/09/19 08:34 Dose: Not Given Lactulose (Lactulose*) 30 ml PO BID PRN PRN Reason: CONSTIPATION Lorazepam (Ativan Tab(*)) 0.5 mg PO BID PRN PRN Reason: ANXIETY Magnesium Hydroxide (Milk Of Magnesia Liq*) 30 ml PO BID [facility] Last Admin: 09/08/19 21:32 Dose: 30 ml Magnesium Hydroxide (Milk Of Magnesia Liq*) 30 ml PO Q6H PRN PRN Reason: CONSTIPATION Morphine Sulfate (Morphine Inj (Syringe))*) 2 mg IV Q4H PRN PRN Reason: Pain - Unrelieved Multivitamins (Theragran Tab*) 1 tab PO DAILY [facility] Last Admin: 09/09/19 08:34 Dose: Not Given Ondansetron HCl (Zofran Inj*) 4 mg IV Q6H PRN PRN Reason: NAUSEA Last Admin: 09/09/19 04:50 Dose: 4 mg Ondansetron HCl (Zofran Odt Tab*) 4 mg PO Q6H PRN PRN Reason: NAUSEA Oxycodone HCl (Roxycodone Tab*) 10 mg PO Q4H PRN PRN Reason: Pain - Breakthrough Last Admin: 09/09/19 07:18 Dose: 10 mg Oxycodone/Acetaminophen (Percocet 5/325 Tab*) 2 tab PO Q4H PRN PRN Reason: PAIN - SEVERE Pantoprazole Sodium (Protonix Tab*) 40 mg PO BID [facility] Last Admin: 09/09/19 08:34 Dose: Not Given Polyethylene Glycol/Electrolytes (Miralax*) 17 gm PO DAILY PRN PRN Reason: Constipation Terazosin HCl (Hytrin Cap*) 10 mg PO BEDTIME [facility] Last Admin: 09/08/19 21:32 Dose: 10 mg Tramadol HCl (Ultram*) 50 mg PO Q12H PRN PRN Reason: PAIN - MODERATE Vital Signs - 8 hr 09/09/19 09/09/19 09/09/19 03:53 07:18 07:26 Temperature 97.4 F 97.5 F Pulse Rate 71 69 Respiratory 17 18 18 Rate Blood Pressure 143/57 151/51 (mmHg) O2 Sat by Pulse 100 100 Oximetry Oxygen Devices in Use Now: Nasal Cannula Appearance: Well developed older female, lying in bed, pleasant, NAD Eyes: No Scleral Icterus, PERRLA Ears/Nose/Mouth/Throat: Clear Oropharnyx, Mucous Membranes Moist Neck: NL Appearance and Movements; NL JVP Respiratory: Symmetrical Chest Expansion and Respiratory Effort, Clear to Auscultation Cardiovascular: NL Sounds; No Murmurs; No JVD, RRR Abdominal: No Hepatosplenomegaly, - - BS+ x 4 quadrants, abdomen soft, mild diffuse tenderness, mild distention. No bruits, no rebound tenderness or guarding Extremities: No Edema, No Clubbing, Cyanosis Neurological: Alert and Oriented x 3, NL Muscle Strength and Tone Lines/Tubes/Other Access: Clean, Dry and Intact Other Access - peritoneal catheter to LLQ Nutrition: Taking PO's Result Diagrams: 09/09/19 07:53 09/09/19 06:17 Microbiology and Other Data: Microbiology 09/08/19 09:00 Gram Stain - Final Knee Assess/Plan/Problems-Billing Assessment: Ms. Moreira is a 69 yo female with a PMH significant for hypertension; hyperlipidemia; diabetes, insulin dependent; small bowel arteriovenous malformation; and end-stage renal disease, requiring peritoneal dialysis, who was admitted on 09/08/19 for an elective right total knee arthroplasty. - Patient Problems (1) Status post total right knee replacement Code(s): Z96.651 - PRESENCE OF RIGHT ARTIFICIAL KNEE JOINT Comment: POD #1, management per ortho Continue analgesia, bowel regimen PT/OT (2) Anemia due to acute blood loss Code(s): D62 - ACUTE POSTHEMORRHAGIC ANEMIA Comment: POD #1 surgery but also with history of AVM HH 6.6/20 this morning Ordered 2 units PRBC and will follow H/H (3) Nausea & vomiting Code(s): R11.2 - NAUSEA WITH VOMITING, UNSPECIFIED Comment: Suspect patient is still experiencing effects from anesthesia Change ondansetron to q4h prn, add scopolamine patch (4) Constipation Code(s): K59.00 - CONSTIPATION, UNSPECIFIED Comment: Unsure of when last BM was, maybe 2-3 days ago BS present but will check KUB; suspect ambulation will help alleviate this Continue bowel regimen (5) Arteriovenous malformation (AVM) Code(s): Q27.30 - ARTERIOVENOUS MALFORMATION, SITE UNSPECIFIED Comment: History of small bowel AVM with chronic bleeding Avoiding chemoprophylaxis due to risk (6) ESRD (end stage renal disease) Code(s): N18.6 - END STAGE RENAL DISEASE Comment: On peritoneal dialysis Continue dialysis per home regimen (7) HTN (hypertension) Code(s): I10 - ESSENTIAL (PRIMARY) HYPERTENSION Comment: Mildly elevated overnight and this morning Continue home amlodipine, diltiazem, labetalol, isosorbide (8) Type II diabetes mellitus Comment: A1c 8.4, FSBG elevated Continue Lantus (may need to increase to 10 units daily) Continue Lispro SSI (will trend FSBG today and increase as needed) (9) DVT prophylaxis Comment: Per ortho SCDs (no chemoprophylaxis due to AVMs) (10) Full code status Code(s): Z78.9 - OTHER SPECIFIED HEALTH STATUS Status and Disposition: Inpatient. Dispo per ortho Attending: Sherry Daniel
[2019-09-09] MEDS: ceFAZolin 1 GM ADVAN(*) 1 GM in NS 0.9% 50 ML* 50 ML IVPB SCH (09:22)
[2019-09-09] MEDS: Magnesium Hydroxide LIQ* 30 ML UDC PO SCH ×2 (09:24→21:42)
[2019-09-09] MEDS: Mupirocin 2% OINT* TUBE TOPICAL SCH (09:33)
[2019-09-09] MEDS ORDERED: Ondansetron INJ* 2 MG/ML VIAL IV PRN (09:47)
[2019-09-09] MEDS: Scopolamine 1.5 mg* PATCH TRANSDERM SCH (10:40)
[2019-09-09] MEDS ORDERED: Enoxaparin(*) 30 MG/0.3 ML SYR SUBCUT SCH (12:00)
[2019-09-09] MEDS ORDERED: Lorazepam PYXIS KEY PRN ×3 (12:01→19:05)
[2019-09-09] MEDS ORDERED: LORazepam INJ* 2 MG/ML 1 ML VIAL ONE ×3 (12:01→15:30)
[2019-09-09] MEDS ORDERED: Lorazepam PYXIS KEY ONE ×2 (12:20→13:40)
[2019-09-09] MEDS ORDERED: LORazepam INJ* 2 MG/ML 1 ML VIAL IV PUSH ONE ×4 (12:21→15:30)
[2019-09-09] MEDS ORDERED: Etomidate* 2 MG/ML 20 ML VIAL (40 MG) ONE (12:32)
[2019-09-09] MEDS ORDERED: Dextrose 50% Syringe 50 ML* 25 GM/50 ML SYRINGE IV PUSH PRN (12:33)
[2019-09-09] MEDS ORDERED: Propofol* 100 ML ONE (12:38)
--- NOTE | 2019-09-09 13:00 | PN ---
Hospitalist Progress Note Date of Service: 09/09/19 Patient seen at bedside at 11:45am; she was seen sitting up in a chair with bucket in her lap. At that time, she continued to endorse intractable nausea. Was previously unable to participate in PT due to nausea/vomiting. She was moved back to her room. She denied chest pain or SOB or knee pain at that time, stating "it's just my belly." KUB previously ordered and was pending. Provider left the room and spoke with nursing, who was getting ready to hang blood. CAT call announced overhead approximately 11:58. This provider returned to the room and witnessed patient sitting up with altered cognition, not responding to name and stiffening. Did not respond to sternal rub. Noted to have rigidity and posturing that preceded tonic clonic activity. Patient was fully reclined for safety. Ativan 2 mg ordered but not given due to seizure activity resolving after approximately 30-35 seconds. Please refer to chart and CAT notes for further interventions, VS, and assessments. At time of CAT assessment, patient noted to have gurgling respirations not previously noted and altered mental status from previous baseline of alert and oriented status, as documented earlier this morning. HR was irregular and patient appeared post-ictal and did not appropriately respond to name (oriented x 0). Patient transferred to ICU; report given to ICU provider team.
--- NOTE | 2019-09-09 13:08 | OP ---
Operative Report - Blank - Operative Report Date of Operation: 09/09/19 Note: Endotracheal Intubation Procedure Note Indication: respiratory arrest Diagnosis: seizures, acute hypoxic respiratory failure/arrest Performed by: Bar Jewell MD Consent: Emergent Prior labs/imaging/history reviewed as needed. Patient preoxygenated/denitrogenated with 100% FiO2 using BMV Patient was medicated with etomidate 20mg iv post intubation for sedation Visualization of vocal cords with Grade 1/2 view obtained using MAC 4. 8.0 ETT was passed through the vocal cords under direct visualization and confirmed with condensation, chest rise with bilateral breath sounds and positive color change x3 on qualitative capnography. ETT was secured at 25 cm at lip. Patient tolerated procedure without immediate complication. Post Procedure CXR: ett above dagoberto ~1-2cm will retract ett 1cm to 24 cm Bar Jewell MD [employer] (Electronically Signed)
[2019-09-09 13:10] LABS: Hematocrit 21 % (35-47); Hemoglobin 6.9 g/dL (12.0-16.0); Mean Corpuscular HGB Conc 33 g/dL (31-36); Mean Corpuscular Hemoglobin 30 pg (27-31); Mean Corpuscular Volume 91 fL (80-97); Mean Platelet Volume 8.1 fL (7.4-10.4); Platelet Count 392 10^3/uL (150-450); Red Cell Distribution Width 18 % (10-15); White Blood Count 18.1 10^3/uL (3.5-10.8)
--- NOTE | 2019-09-09 13:19 | CONSULT ---
Consult Consult: Consultation Note -- Critical Care Requesting Physician: Dr Jarvis Reason for consult: seizures, respiratory failure Limitations in history/physical: change in mental status/seizures Date of consult:09/09/19 HPI: 69y F w/pmxh of HTN, HLd, DM, ESRD on PD, h/o small bowel AVMs, Chronic anemia/OMAR, h/o hep C, h/o Right breast ca s/p lumpectomy; She presented to [facility] 09/08 for right totak knee arthroplasty, no significant events periop. She had complaints of constipation pre-op for 2-3 days, no n/v/abd pain. She was noted to be hg 6.6, not much blood loss intraop on documentation. Last hg 9.7 on 08/26. This morning she had nausea/vomitting. She was to be given PRBC for low hg but then she developed a mental status change, appeared to be tonic, nonresponsive, posturing and then tonic-clonic activity lasting 30-35 seconds, resolved and then she was awake but with a change in mental status, likely post ictal. She was transferred to the ICU. In ICU, she was being moved and settled. BP and HR stable. she was confused, moaning, not following commands. no resp distress noted. She developed a secondary seizure, lasting 30 seconds, stopped but then was unresponsive, not breathing, pulse present, desaturated to 70s. She was manually bagged with 100% , given ativan 2mg IV x1, intubated by me for respiratory arrest without any complication. She is started on propofol infusion. PRBC x2 started. NGT was placed after intubation and 400-500cc of stomach contents/stomach acid was suctioned out. ROS: ROS unable to be obtained secondary to intubated/sedated/mental status change PMHx: HTN, HLd, DM, ESRD on PD, h/o small bowel AVMs, Chronic anemia/OMAR, h/o hep C, h/o Right breast ca s/p lumpectomy PSHx: left total knee replacement, right breast lumpectomy, bilateral cataracts , tubal ligation, carpal release Family History: mother 38 from [place], father 54 from [place], brother had [place], no history of cancer. 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, deivorced , 3 children Allergies: Allergies Allergy/AdvReac Type Severity Reaction Status Date / Time enalapril Allergy Swelling Verified 08/26/19 16:18 Of Face,Lips,& Throat hydralazine AdvReac Palpitation Verified 08/26/19 16:18 s verapamil AdvReac Palpitation Verified 08/26/19 16:18 s Home Medications: amLODIPine TAB* [Norvasc 5 mg TAB*] 10 mg PO QAM 11/24/17 [History Confirmed ] cloNIDine TAB* [Catapres 0.1 MG TAB*] 0.3 mg PO TID 11/24/17 [History Confirmed 09/08/19] LORazepam TAB(*) [Ativan 0.5 MG TAB (*)] 0.5 mg PO BID PRN #20 tab MDD 2 [Rx Confirmed 09/08/19] Labetalol TAB* [Trandate TAB*] 300 mg PO BID #60 tab 11/30/17 [Rx Confirmed ] Terazosin CAP* [Hytrin CAP 5 MG*] 10 mg PO BEDTIME 01/08/18 [History Confirmed 09/08/19] Acetaminophen TAB* [Tylenol TAB*] 650 mg PO Q4H PRN tab 11/08/18 [Rx Confirmed 09/08/19] Diltiazem CD CAP* [Cardizem CD CAP*] 240 mg PO QAM 11/29/18 [History Confirmed 09/08/19] Isosorbide Mononitrate ER TAB* [Imdur ER TAB*] 30 mg PO QPM 11/29/18 [History Confirmed 09/08/19] Insulin GLARGINE(*) [Lantus(*)] 10 - 12 units SUBCUT QAM 12/15/18 [History Confirmed 09/08/19] Multivitamin [[id number]-[id number]-Iybif] 1 each PO BEDTIME 06/08/19 [History Confirmed ] Calcitriol [Rocaltrol] 0.25 mcg PO QAM 08/26/19 [History Confirmed 09/08/19] Insulin Aspart [Novolog] 100 unit SQ SEE INSTRUCTIONS PRN 08/26/19 [History Confirmed 09/08/19] Omeprazole 20 mg PO BID 08/26/19 [History Confirmed 09/08/19] Tele: NSR Vitals: Vital Signs Temp 97.8 F 09/09/19 11:41 Pulse 77 09/09/19 13:49 Resp 20 09/09/19 11:41 BP 135/55 09/09/19 13:45 Pulse Ox 100 09/09/19 13:49 Intake & Output 09/08/19 09/09/19 09/09/19 18:59 06:59 18:59 Intake Total 650 1702 822 Output Total 50 100 Balance 600 1602 822 Weight 70.76 kg 77.564 kg Intake: IV Fluids 650 972 644 ABX - CEFAZOLIN 55 LR 917 644 NS 50ML, Cefazolin 2G 50 lr 600 IVPB 58 ABX - CEFAZOLIN 58 Oral 730 120 Output: Hernández 50 100 O2/Vent: AC 16/450/+5/30% Infusions: propofol, PRBC Current Medications: Acetaminophen (Tylenol Tab*) 975 mg PO Q8HR [facility] Last Admin: 09/09/19 06:04 Dose: Not Given Amlodipine Besylate (Norvasc Tab*) 10 mg PO [facility] Last Admin: 09/09/19 08:33 Dose: 10 mg Bisacodyl (Dulcolax Supp*) 10 mg NV DAILY PRN PRN Reason: CONSTIPATION Calcitriol (Rocaltrol Cap*) 0.25 mcg PO [facility] Last Admin: 09/09/19 08:34 Dose: Not Given Clonidine HCl (Catapres Tab*) 0.3 mg PO TID [facility] Last Admin: 09/09/19 08:33 Dose: 0.3 mg Cyclobenzaprine HCl (Flexeril Tab*) 10 mg PO Q6H PRN PRN Reason: SPASMS Dextrose (D50w Syringe 50 Ml*) 12.5 gm IV PUSH .FOR FS < 60 - SS PRN PRN Reason: FS < 60 Diltiazem HCl (Cardizem Cd Cap*) 240 mg PO [facility] Last Admin: 09/09/19 08:30 Dose: 240 mg Diphenhydramine HCl (Benadryl Iv*) 25 mg IV Q6H PRN PRN Reason: PRURITIS Diphenhydramine HCl (Benadryl Liq*) 12.5 mg PO Q6H PRN PRN Reason: PRURITIS Diphenhydramine HCl (Benadryl Po*) 25 mg PO Q6H PRN PRN Reason: PRURITIS Docusate Sodium (Colace Cap*) 100 mg PO BID [facility] Last Admin: 09/09/19 08:30 Dose: 100 mg Lactated Ringer's (Lactated Ringers 1000 Ml Bag*) 1,000 mls @ 100 mls/hr IV PER RATE [facility] Last Admin: 09/08/19 23:12 Dose: 100 mls/hr Propofol (Diprivan*) 100 mls @ 9.308 mls/hr IV .PER PROTOCOL [facility]; Protocol Levetiracetam (Keppra Iv Premix*) 500 mg in 100 mls @ 400 mls/hr IV Q12H [facility] Piperacillin Sod/Tazobactam (Sod 3.375 gm/ Sodium Chloride) 100 mls @ 200 mls/ hr IVPB ONCE ONE Stop: 09/09/19 14:44 Insulin Glargine (Lantus(*)) 8 units SUBCUT QAM [facility] Last Admin: 09/09/19 08:34 Dose: 8 units Insulin Human Lispro (Humalog*) 0 units SUBCUT AC [facility]; Protocol Last Admin: 09/09/19 08:34 Dose: 4 units Isosorbide Mononitrate (Imdur Er Tab*) 30 mg PO QPM [facility] Last Admin: 09/08/19 22:36 Dose: 30 mg Labetalol HCl (Trandate Tab*) 300 mg PO BID [facility] Last Admin: 09/09/19 08:34 Dose: Not Given Lactulose (Lactulose*) 30 ml PO BID PRN PRN Reason: CONSTIPATION Lorazepam (Ativan Tab(*)) 0.5 mg PO BID PRN PRN Reason: ANXIETY Magnesium Hydroxide (Milk Of Magnesia Liq*) 30 ml PO BID [facility] Last Admin: 09/09/19 09:24 Dose: Not Given Magnesium Hydroxide (Milk Of Magnesia Liq*) 30 ml PO Q6H PRN PRN Reason: CONSTIPATION Miscellaneous (Ativan Pyxis [place]) 1 ea N/A .ATIVAN IV ZURITA PRN PRN Reason: PYXIS ZURITA Morphine Sulfate (Morphine Inj (Syringe))*) 2 mg IV Q4H PRN PRN Reason: Pain - Unrelieved Multivitamins (Theragran Tab*) 1 tab PO DAILY [facility] Last Admin: 09/09/19 08:34 Dose: Not Given Mupirocin (Bactroban 2 % Oint*) 1 applic TOPICAL DAILY@1000 [facility] Last Admin: 09/09/19 09:33 Dose: 1 applic Ondansetron HCl (Zofran Odt Tab*) 4 mg PO Q6H PRN PRN Reason: NAUSEA Last Admin: 09/09/19 09:27 Dose: 4 mg Ondansetron HCl (Zofran Inj*) 4 mg IV Q4H PRN PRN Reason: NAUSEA Oxycodone HCl (Roxycodone Tab*) 10 mg PO Q4H PRN PRN Reason: Pain - Breakthrough Last Admin: 09/09/19 07:18 Dose: 10 mg Oxycodone/Acetaminophen (Percocet 5/325 Tab*) 2 tab PO Q4H PRN PRN Reason: PAIN - SEVERE Pantoprazole Sodium (Protonix Tab*) 40 mg PO BID [facility] Last Admin: 09/09/19 08:34 Dose: Not Given Pharmacy Consult (Zosyn Per Pharmacy*) 1 note FOLLOW UP .ZOSYN PER PHARMACY [facility] Pharmacy Profile Note (Scopolamine Patch Remove*) 1 note PATCH OFF .AFTER 72 HOURS [facility] Polyethylene Glycol/Electrolytes (Miralax*) 17 gm PO DAILY PRN PRN Reason: Constipation Scopolamine (Transderm-Scop 1.5 Mg Patch*) 1 patch TRANSDERM Q72H [facility] Last Admin: 09/09/19 10:40 Dose: 1 patch Terazosin HCl (Hytrin Cap*) 10 mg PO BEDTIME [facility] Last Admin: 09/08/19 21:32 Dose: 10 mg Tramadol HCl (Ultram*) 50 mg PO Q12H PRN PRN Reason: PAIN - MODERATE Physical Exam: Constitutional: not awake, poorly responsive, not alert, now intubated, no diaphoresis Head: normocephalic, atraumatic Eyes: no pallor, no icterus ENT: moist mucous membranes Neck: soft, supple, no jvd CVS: normal rate, regular, no murmur Chest/Resp: bilateral air entry, scattered rhales+, no wheeze, no rhonchi, no acc muscle use Abdomen/GI: soft, nontender, +distended, BS dmininshed, PD cath+ Ext/Msk: warm, pulses+, no edema Skin: intact, warm Neuro: was confused, then unresponsive, now sedated, pupils reactive Psych: unable to assess due to change in mental status Labs: Laboratory Results - last 24 hr 09/08/19 09/08/19 09/08/19 17:08 17:47 19:34 WBC RBC Hgb Hct MCV MCH MCHC RDW Plt Count MPV Neut % (Auto) Lymph % (Auto) [place] % (Auto) Eos % (Auto) Baso % (Auto) Absolute Neuts (auto) Absolute Lymphs (auto) Absolute Monos (auto) Absolute Eos (auto) Absolute Basos (auto) Absolute Nucleated RBC Immature Gran % Neutrophils % Band Neutrophils % Lymphocytes % Monocytes % Nucleated RBC % Normal RBC Morphology Polychromasia Hypochromasia [place] Cells Schistocytes Patient Temperature ABG pH ABG pH (Temp Correct) ABG pCO2 ABG pCO2 (Temp Corrct ABG pO2 ABG pO2 (Temp Correct ABG HCO3 ABG O2 Saturation ABG Base Excess Respiration Rate O2 Delivery Device Ventilator Type Vent Mode FiO2 Inspiratory Time PEEP Pressure Support Pressure Control EPAP IPAP BiPAP Sodium Potassium Chloride Carbon Dioxide Anion Gap BUN Creatinine Est GFR ( Amer) Est GFR (Non-Af Amer) BUN/Creatinine Ratio Glucose POC Glucose (mg/dL) 405 H* > 444 H* Glucose Meter Confirm 406 H Hemoglobin A1c Lactic Acid Calcium Ionized Calcium Phosphorus Magnesium Total Bilirubin AST ALT Alkaline Phosphatase Ammonia Total Protein Albumin Globulin Albumin/Globulin Ratio Blood Type Antibody Screen Crossmatch 09/08/19 09/08/19 09/08/19 19:58 22:02 23:48 WBC RBC Hgb Hct MCV MCH MCHC RDW Plt Count MPV Neut % (Auto) Lymph % (Auto) [place] % (Auto) Eos % (Auto) Baso % (Auto) Absolute Neuts (auto) Absolute Lymphs (auto) Absolute Monos (auto) Absolute Eos (auto) Absolute Basos (auto) Absolute Nucleated RBC Immature Gran % Neutrophils % Band Neutrophils % Lymphocytes % Monocytes % Nucleated RBC % Normal RBC Morphology Polychromasia Hypochromasia [place] Cells Schistocytes Patient Temperature ABG pH ABG pH (Temp Correct) ABG pCO2 ABG pCO2 (Temp Corrct ABG pO2 ABG pO2 (Temp Correct ABG HCO3 ABG O2 Saturation ABG Base Excess Respiration Rate O2 Delivery Device Ventilator Type Vent Mode FiO2 Inspiratory Time PEEP Pressure Support Pressure Control EPAP IPAP BiPAP Sodium Potassium Chloride Carbon Dioxide Anion Gap BUN Creatinine Est GFR ( Amer) Est GFR (Non-Af Amer) BUN/Creatinine Ratio Glucose 432 H POC Glucose (mg/dL) 431 H* 394 H Glucose Meter Confirm Hemoglobin A1c Lactic Acid Calcium Ionized Calcium Phosphorus Magnesium Total Bilirubin AST ALT Alkaline Phosphatase Ammonia Total Protein Albumin Globulin Albumin/Globulin Ratio Blood Type Antibody Screen Crossmatch 09/09/19 09/09/19 09/09/19 04:23 05:59 06:17 WBC RBC Hgb 6.6 L Hct 19 L MCV MCH MCHC RDW Plt Count 292 MPV 7.5 Neut % (Auto) Lymph % (Auto) [place] % (Auto) Eos % (Auto) Baso % (Auto) Absolute Neuts (auto) Absolute Lymphs (auto) Absolute Monos (auto) Absolute Eos (auto) Absolute Basos (auto) Absolute Nucleated RBC Immature Gran % Neutrophils % Band Neutrophils % Lymphocytes % Monocytes % Nucleated RBC % Normal RBC Morphology Polychromasia Hypochromasia [place] Cells Schistocytes Patient Temperature ABG pH ABG pH (Temp Correct) ABG pCO2 ABG pCO2 (Temp Corrct ABG pO2 ABG pO2 (Temp Correct ABG HCO3 ABG O2 Saturation ABG Base Excess Respiration Rate O2 Delivery Device Ventilator Type Vent Mode FiO2 Inspiratory Time PEEP Pressure Support Pressure Control EPAP IPAP BiPAP Sodium Potassium Chloride Carbon Dioxide Anion Gap BUN Creatinine Est GFR ( Amer) Est GFR (Non-Af Amer) BUN/Creatinine Ratio Glucose POC Glucose (mg/dL) 233 H 216 H Glucose Meter Confirm Hemoglobin A1c Lactic Acid Calcium Ionized Calcium Phosphorus Magnesium Total Bilirubin AST ALT Alkaline Phosphatase Ammonia Total Protein Albumin Globulin Albumin/Globulin Ratio Blood Type Antibody Screen Crossmatch 09/09/19 09/09/19 09/09/19 06:17 06:17 07:52 WBC RBC Hgb Hct MCV MCH MCHC RDW Plt Count MPV Neut % (Auto) Lymph % (Auto) [place] % (Auto) Eos % (Auto) Baso % (Auto) Absolute Neuts (auto) Absolute Lymphs (auto) Absolute Monos (auto) Absolute Eos (auto) Absolute Basos (auto) Absolute Nucleated RBC Immature Gran % Neutrophils % Band Neutrophils % Lymphocytes % Monocytes % Nucleated RBC % Normal RBC Morphology Polychromasia Hypochromasia [place] Cells Schistocytes Patient Temperature ABG pH ABG pH (Temp Correct) ABG pCO2 ABG pCO2 (Temp Corrct ABG pO2 ABG pO2 (Temp Correct ABG HCO3 ABG O2 Saturation ABG Base Excess Respiration Rate O2 Delivery Device Ventilator Type Vent Mode FiO2 Inspiratory Time PEEP Pressure Support Pressure Control EPAP IPAP BiPAP Sodium 134 L Potassium 3.6 Chloride 98 L Carbon Dioxide 24 Anion Gap 12 H BUN 38 H Creatinine 7.69 H Est GFR ( Amer) 6.3 Est GFR (Non-Af Amer) 5.2 BUN/Creatinine Ratio 4.9 L Glucose 201 H POC Glucose (mg/dL) Glucose Meter Confirm Hemoglobin A1c 8.4 H Lactic Acid Calcium 7.8 L Ionized Calcium Phosphorus Magnesium Total Bilirubin AST ALT Alkaline Phosphatase Ammonia Total Protein Albumin Globulin Albumin/Globulin Ratio Blood Type B Positive Antibody Screen Negative Crossmatch See Detail 09/09/19 09/09/19 09/09/19 07:53 08:17 12:30 WBC 18.1 H RBC 2.30 L Hgb 6.6 L 6.9 L Hct 20 L 21 L MCV 91 MCH 30 MCHC 33 RDW 18 H Plt Count 392 MPV 8.1 Neut % (Auto) 79.4 Lymph % (Auto) 10.3 [place] % (Auto) 10.1 Eos % (Auto) 0.0 Baso % (Auto) 0.2 Absolute Neuts (auto) 14.4 H Absolute Lymphs (auto) 1.9 Absolute Monos (auto) 1.8 H Absolute Eos (auto) 0.0 Absolute Basos (auto) 0.0 Absolute Nucleated RBC 0.0 Immature Gran % 9.0 Neutrophils % 74.0 Band Neutrophils % 9.0 H Lymphocytes % 11.0 Monocytes % 6.0 Nucleated RBC % 0.1 Normal RBC Morphology Not Reportable Polychromasia 2+ Hypochromasia 1+ [place] Cells 1+ Schistocytes 1+ Patient Temperature ABG pH ABG pH (Temp Correct) ABG pCO2 ABG pCO2 (Temp Corrct ABG pO2 ABG pO2 (Temp Correct ABG HCO3 ABG O2 Saturation ABG Base Excess Respiration Rate O2 Delivery Device Ventilator Type Vent Mode FiO2 Inspiratory Time PEEP Pressure Support Pressure Control EPAP IPAP BiPAP Sodium Potassium Chloride Carbon Dioxide Anion Gap BUN Creatinine Est GFR ( Amer) Est GFR (Non-Af Amer) BUN/Creatinine Ratio Glucose POC Glucose (mg/dL) 214 H Glucose Meter Confirm Hemoglobin A1c Lactic Acid Calcium Ionized Calcium Phosphorus Magnesium Total Bilirubin AST ALT Alkaline Phosphatase Ammonia Total Protein Albumin Globulin Albumin/Globulin Ratio Blood Type Antibody Screen Crossmatch 09/09/19 09/09/19 09/09/19 12:30 12:30 12:30 WBC RBC Hgb Hct MCV MCH MCHC RDW Plt Count MPV Neut % (Auto) Lymph % (Auto) [place] % (Auto) Eos % (Auto) Baso % (Auto) Absolute Neuts (auto) Absolute Lymphs (auto) Absolute Monos (auto) Absolute Eos (auto) Absolute Basos (auto) Absolute Nucleated RBC Immature Gran % Neutrophils % Band Neutrophils % Lymphocytes % Monocytes % Nucleated RBC % Normal RBC Morphology Polychromasia Hypochromasia [place] Cells Schistocytes Patient Temperature ABG pH ABG pH (Temp Correct) ABG pCO2 ABG pCO2 (Temp Corrct ABG pO2 ABG pO2 (Temp Correct ABG HCO3 ABG O2 Saturation ABG Base Excess Respiration Rate O2 Delivery Device Ventilator Type Vent Mode FiO2 Inspiratory Time PEEP Pressure Support Pressure Control EPAP IPAP BiPAP Sodium 130 L Potassium 3.2 L Chloride 92 L Carbon Dioxide 15 L Anion Gap 23 H BUN 37 H Creatinine 7.58 H Est GFR ( Amer) 6.4 Est GFR (Non-Af Amer) 5.3 BUN/Creatinine Ratio 4.9 L Glucose 270 H POC Glucose (mg/dL) Glucose Meter Confirm 270 H Hemoglobin A1c Lactic Acid Calcium 7.9 L Ionized Calcium 1.07 L Phosphorus 6.8 H Magnesium 2.0 Total Bilirubin 0.20 AST 34 ALT 17 Alkaline Phosphatase 77 Ammonia 90 H Total Protein 5.7 L Albumin 3.0 L Globulin 2.7 Albumin/Globulin Ratio 1.1 Blood Type Antibody Screen Crossmatch 09/09/19 09/09/19 12:30 14:10 WBC RBC Hgb Hct MCV MCH MCHC RDW Plt Count MPV Neut % (Auto) Lymph % (Auto) [place] % (Auto) Eos % (Auto) Baso % (Auto) Absolute Neuts (auto) Absolute Lymphs (auto) Absolute Monos (auto) Absolute Eos (auto) Absolute Basos (auto) Absolute Nucleated RBC Immature Gran % Neutrophils % Band Neutrophils % Lymphocytes % Monocytes % Nucleated RBC % Normal RBC Morphology Polychromasia Hypochromasia [place] Cells Schistocytes Patient Temperature Not Reportable ABG pH 7.22 L ABG pH (Temp Correct) Not Reportable ABG pCO2 47 H ABG pCO2 (Temp Corrct Not Reportable ABG pO2 109 H ABG pO2 (Temp Correct Not Reportable ABG HCO3 18.3 L ABG O2 Saturation 99.5 H ABG Base Excess -8.5 L Respiration Rate 16 O2 Delivery Device vent Ventilator Type 400 Vent Mode Cmv FiO2 30 Inspiratory Time 1.0 PEEP 5 Pressure Support Not Reportable Pressure Control Not Reportable EPAP Not Reportable IPAP Not Reportable BiPAP Not Reportable Sodium Potassium Chloride Carbon Dioxide Anion Gap BUN Creatinine Est GFR ( Amer) Est GFR (Non-Af Amer) BUN/Creatinine Ratio Glucose POC Glucose (mg/dL) Glucose Meter Confirm Hemoglobin A1c Lactic Acid 12.7 H* Calcium Ionized Calcium Phosphorus Magnesium Total Bilirubin AST ALT Alkaline Phosphatase Ammonia Total Protein Albumin Globulin Albumin/Globulin Ratio Blood Type Antibody Screen Crossmatch Imaging: cxr 09/09 - ett above dagoberto, no infiltrates Assessment: 69y F w/pmxh of HTN, HLd, DM, ESRD on PD, h/o small bowel AVMs, Chronic anemia/OMAR, h/o hep C, h/o Right breast ca s/p lumpectomy; She presented to [facility] 09/08 for right totak knee arthroplasty, no significant events periop. She had complaints of constipation pre-op for 2-3 days, no n/v/abd pain. She was noted to be hg 6.6, not much blood loss intraop on documentation. Last hg 9.7 on 08/26. This morning she had nausea/vomitting. She was to be given PRBC for low hg but then she developed a mental status change, appeared to be tonic, nonresponsive, posturing and then tonic-clonic activity lasting 30-35 seconds, resolved and then she was awake but with a change in mental status, likely post ictal. She was transferred to the ICU. -Status epilepticus -encephalopathy -Acute respiratory arrest/hypoxic respiratory failure, intubated 09/09 -r/o aspiration -s/p Right TKA 09/08 -Acute blood loss anemia -Lactic acidosis -Ileus ESRD on PD HTN AVMs Plan: Neuro- -seizures, 2 episodes, spontaneously broken -EEG done, none further noted -keppra 1gm to be given -CT brain and CTA head/neck to be done -propofol for sedation -neurochecks, daily sedation weaning -Delirium prec CVS- -BP stable -HR stable -HTN - BP meds to be continued as tolerated, hold for SBP <130 -anemia; 2 prbc transfusing, check post cbc -K was low but now getting PRBC, check K after; no arrythmias noted -Maintain MAP>65 Resp- -intubated, now on 30%, sat 100% -ABG reviewed - mixed respiratory and metabolic acidosis -increase RR to 20 and TV to 450 -CXR tomorrow -no clear inifltrate on CXR; will re-eval abx need -Wean Fio2 to keep sat>92% -Bronchodilators PRN, Aspiration prec, Pulmonary Toilet -VAP bundle ID- afebrile, wbc 18 today. reactive? 2/2 to ileus? post op? -nontoxic -LA may be elevated from hypoxia/seizure GI- -NPO -NGT to suction; noted gastric acid being suctioned -KUB for ileus -GI prophylaxis - ppi Renal- -ESRD; on PD ; cont PD -for CTA today -noted lactic acidosis from seizures and hypoxia; trend LA -strict I/O, replete to keep K>4, Mg>2 -hernández as indicated Heme- -acute blood loss, likely from surgery; 2 prbc tranfusing; cehck post cbc -started on warfarin for dvt porph but d/c'ed today; will need some proph; start heparin sq tonight if CT okay and no further large drops in hg Endo- Maintain BG<200, insulin protocol as needed Musculsk- pressure ulcer prophylaxis. Bedrest. Wounds- ortho for right TKA wound care Nutrition- NPO DVT prophylaxis: SCD, off chemical for now GI prophylaxis: ppi Central Line: to be placed Arterial Line: no Hernández Cathetor:none Disposition: Patient requires Critical Care/ICU for respiratoyr failure/ intubated, seizures Patient Clinical Status: critical Code Status: full code Total Critical Care time is 80 minutes, excluding procedures/teaching Bar Jewell MD Commercial Artist (Electronically Signed)
--- NOTE | 2019-09-09 13:24 | CONSULT ---
Consult Consult: Consult requested for ESRD on PD. Anemia of CKD. Consult requested by: Jackie Duval. Performed by Dr. Kathy Doyle, [facility] Nephrology 09/09/2019 69 YO AAF Admitted electively post op s/p Right Total Knee Arthroplasty I saw her at bedside c/c of severe nausea and recurrent vomiting. No IV Access yet, so cant get Blood, I saw her initially around 10:30 am today, but by 1pm she deteriorated and had to be intubated. She had rigidity, posturing & tonic clonic activity. CAT team called, got intubated and transferred to MICU Im Ok with her getting a Medline or central line for PRBCs for severe Anemia. 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 Known ESRD on CCPD, DM1, Dyslipidemia, HTN, and small bowel AVM. She has been anemic, todays Hb/Hct 6.6/20, scheduled for 2 Units PRBCs. PMH: ESRD on PD HTN Anemia as above DM2 HCV Breast CA Dyslipidemia Small bowel AVM. HomeMeds: Reviewed Hospital Meds: Acetaminophen (Tylenol Tab*) 975 mg PO Q8HR [facility] Last Admin: 09/09/19 06:04 Dose: Not Given Amlodipine Besylate (Norvasc Tab*) 10 mg PO QAM [facility] Last Admin: 09/09/19 08:33 Dose: 10 mg Bisacodyl (Dulcolax Supp*) 10 mg MO DAILY PRN PRN Reason: CONSTIPATION Calcitriol (Rocaltrol Cap*) 0.25 mcg PO QAM [facility] Last Admin: 09/09/19 08:34 Dose: Not Given Clonidine HCl (Catapres Tab*) 0.3 mg PO TID [facility] Last Admin: 09/09/19 08:33 Dose: 0.3 mg Cyclobenzaprine HCl (Flexeril Tab*) 10 mg PO Q6H PRN PRN Reason: SPASMS Dextrose (D50w Syringe 50 Ml*) 12.5 gm IV PUSH .FOR FS < 60 - SS PRN PRN Reason: FS < 60 Diltiazem HCl (Cardizem Cd Cap*) 240 mg PO QAM [facility] Last Admin: 09/09/19 08:30 Dose: 240 mg Diphenhydramine HCl (Benadryl Iv*) 25 mg IV Q6H PRN PRN Reason: PRURITIS Diphenhydramine HCl (Benadryl Liq*) 12.5 mg PO Q6H PRN PRN Reason: PRURITIS Diphenhydramine HCl (Benadryl Po*) 25 mg PO Q6H PRN PRN Reason: PRURITIS Docusate Sodium (Colace Cap*) 100 mg PO BID [facility] Last Admin: 09/09/19 08:30 Dose: 100 mg Lactated Ringer's (Lactated Ringers 1000 Ml Bag*) 1,000 mls @ 100 mls/hr IV PER RATE [facility] Last Admin: 09/08/19 23:12 Dose: 100 mls/hr Insulin Glargine (Lantus(*)) 8 units SUBCUT QAM [facility] Last Admin: 09/09/19 08:34 Dose: 8 units Insulin Human Lispro (Humalog*) 0 units SUBCUT AC [facility]; Protocol Last Admin: 09/09/19 08:34 Dose: 4 units Isosorbide Mononitrate (Imdur Er Tab*) 30 mg PO QPM [facility] Last Admin: 09/08/19 22:36 Dose: 30 mg Labetalol HCl (Trandate Tab*) 300 mg PO BID [facility] Last Admin: 09/09/19 08:34 Dose: Not Given Lactulose (Lactulose*) 30 ml PO BID PRN PRN Reason: CONSTIPATION Lorazepam (Ativan Tab(*)) 0.5 mg PO BID PRN PRN Reason: ANXIETY Magnesium Hydroxide (Milk Of Magnesia Liq*) 30 ml PO BID [facility] Last Admin: 09/09/19 09:24 Dose: Not Given Magnesium Hydroxide (Milk Of Magnesia Liq*) 30 ml PO Q6H PRN PRN Reason: CONSTIPATION Morphine Sulfate (Morphine Inj (Syringe))*) 2 mg IV Q4H PRN PRN Reason: Pain - Unrelieved Multivitamins (Theragran Tab*) 1 tab PO DAILY [facility] Last Admin: 09/09/19 08:34 Dose: Not Given Mupirocin (Bactroban 2 % Oint*) 1 applic TOPICAL DAILY@1000 [facility] Last Admin: 09/09/19 09:33 Dose: 1 applic Ondansetron HCl (Zofran Odt Tab*) 4 mg PO Q6H PRN PRN Reason: NAUSEA Last Admin: 09/09/19 09:27 Dose: 4 mg Ondansetron HCl (Zofran Inj*) 4 mg IV Q4H PRN PRN Reason: NAUSEA Oxycodone HCl (Roxycodone Tab*) 10 mg PO Q4H PRN PRN Reason: Pain - Breakthrough Last Admin: 09/09/19 07:18 Dose: 10 mg Oxycodone/Acetaminophen (Percocet 5/325 Tab*) 2 tab PO Q4H PRN PRN Reason: PAIN - SEVERE Pantoprazole Sodium (Protonix Tab*) 40 mg PO BID [facility] Last Admin: 09/09/19 08:34 Dose: Not Given Pharmacy Profile Note (Scopolamine Patch Remove*) 1 note PATCH OFF .AFTER 72 HOURS [facility] Polyethylene Glycol/Electrolytes (Miralax*) 17 gm PO DAILY PRN PRN Reason: Constipation Scopolamine (Transderm-Scop 1.5 Mg Patch*) 1 patch TRANSDERM Q72H [facility] Last Admin: 09/09/19 10:40 Dose: 1 patch Terazosin HCl (Hytrin Cap*) 10 mg PO BEDTIME [facility] Last Admin: 09/08/19 21:32 Dose: 10 mg Tramadol HCl (Ultram*) 50 mg PO Q12H PRN PRN Reason: PAIN - MODERATE Allergies: Enalapril Allergy (Verified 08/26/19 16:18) Swelling Of Face,Lips,& Throat hydralazine Adverse Reaction (Verified 08/26/19 16:18) Palpitations verapamil Adverse Reaction (Verified 08/26/19 16:18) Palpitations Social History: Denied Alcohol, smoking. No IVDA. Family History: Negative for Dialysis, ESRD or Renal Transplant. 12-Point Review of System obtained from 10:30a Constitutional: Nausea and Vomiting Eyes No blurry vision. No red eye CV: No SOB at rest or exertion, no chest pain no syncope or edema Respiratory: No SOB at rest no cough no wheezing G.I: nausea and vomiting, but no pain no blood per rectum no burning no obstruction symptoms Skin no rash Neurology had a witnessed seizures , no neurologic deficit Endocrine diabetes, no heat or cold intolerance Hem/Lymphatic no bleeding no lymph nodes swelling Immune/Allergy no allergic reactions Musculoskeletal: No arthritis, no swelling Psych no anxiety no depression no hallucination Objective from 10:30a 10 Point multi system exam: Constitutional Alert Oriented x 3 HEENT: No Conjunctivitis Abdomen Soft Abdomen No Ascites Heart: NSR, Trace LE Edema, No murmur Lungs: Clear to auscultation Extremities: Trace edema, no rash Skin no rash Neurology No deficit. CN intact Hem/Lymph: no palpable lymph nodes Musculoskeletal: No joint swelling Laboratory Reviewed Sodium 134 mmol/L (135-145) L 09/09/19 06:17 Potassium 3.6 mmol/L (3.5-5.0) 09/09/19 06:17 MSAMBUN 38 mg/dL (6-24) H 09/09/19 06:17 Creatinine 7.69 mg/dL (0.51-0.95) H 09/09/19 06:17 Hemoglobin A1c 8.4 % (4.0-5.6) H 09/09/19 06:17 Calcium 7.8 mg/dL (8.6-10.3) L 09/09/19 06:17 Assessment and Plan: Resume PD while in MICU. CCPD, 4 exchanges, 2200 cc, 2.5% Advise 2 U PRBCs Electrolytes Ok Will setup PD with 2.5% Dextrose tonight
[2019-09-09 13:27] LABS: Albumin/Globulin Ratio 1.1 (1-3); BUN/Creatinine Ratio 4.9 (8-20); Calcium 7.9 mg/dL (8.6-10.3); EGFR African American 6.4 (>60); EGFR Non-African American 5.3 (>60); Globulin 2.7 g/dL (2-4); Phosphorus 6.8 mg/dL (2.5-5.0); Potassium 3.2 mmol/L (3.5-5.0); Total Bilirubin 0.2 mg/dL (0.2-1.0); Total Protein 5.7 g/dL (6.4-8.9)
[2019-09-09 13:47] LABS: ABS Lymphocytes 1.9 10^3/ul (1.0-4.8); ABS Monocytes 1.8 10^3/ul (0-0.8); ABS Neutrophils 14.4 10^3/ul (1.5-7.7); Lymphocyte % 10.3 %; Nucleated Red Blood Cells % 0.1
[2019-09-09 13:50] LABS: Polychromasia 2+; Schistocytes 1+
[2019-09-09 13:55] LABS: Burr Cells 1+
[2019-09-09] MEDS ORDERED: levETIRAcetam 1000MG IVPREMIX* 1,000 MG/100 ML BAG IVPB ONE ×2 (13:55→20:00)
[2019-09-09] MEDS ORDERED: Piperacillin/Tazobac ADVAN(*) 3.375 GM in NS 0.9% 100 ML* 100 ML IVPB ONE ×2 (14:15→19:00)
--- NOTE | 2019-09-09 14:46 | PN ---
Progress Note - Progress Note Date of Service: 09/09/19 SOAP: Subjective: Pt. seen this AM with no problems, feeling well. She was noted to have a seizure by nursing at around 11am. She had desat of O2 to 40's and was intubated, sent to ICU. Objective: Vital Signs: Temp Pulse Resp BP Pulse Ox 97.8 F 77 20 135/55 100 09/09/19 11:41 09/09/19 13:49 09/09/19 11:41 09/09/19 13:45 09/09/19 13:49 Laboratory Results - last 24 hr 09/08/19 09/08/19 09/08/19 17:08 17:47 19:34 WBC RBC Hgb Hct MCV MCH MCHC RDW Plt Count MPV Neut % (Auto) Lymph % (Auto) [place] % (Auto) Eos % (Auto) Baso % (Auto) Absolute Neuts (auto) Absolute Lymphs (auto) Absolute Monos (auto) Absolute Eos (auto) Absolute Basos (auto) Absolute Nucleated RBC Immature Gran % Neutrophils % Band Neutrophils % Lymphocytes % Monocytes % Nucleated RBC % Normal RBC Morphology Polychromasia Hypochromasia [place]it[place] Cells Schistocytes Patient Temperature ABG pH ABG pH (Temp Correct) ABG pCO2 ABG pCO2 (Temp Corrct ABG pO2 ABG pO2 (Temp Correct ABG HCO3 ABG O2 Saturation ABG Base Excess Respiration Rate O2 Delivery Device Ventilator Type Vent Mode FiO2 Inspiratory Time PEEP Pressure Support Pressure Control EPAP IPAP BiPAP Sodium Potassium Chloride Carbon Dioxide Anion Gap BUN Creatinine Est GFR ( Amer) Est GFR (Non-Af Amer) BUN/Creatinine Ratio Glucose POC Glucose (mg/dL) 405 H* > 444 H* Glucose Meter Confirm 406 H Hemoglobin A1c Lactic Acid Calcium Ionized Calcium Phosphorus Magnesium Total Bilirubin AST ALT Alkaline Phosphatase Ammonia Total Protein Albumin Globulin Albumin/Globulin Ratio Blood Type Antibody Screen Crossmatch 09/08/19 09/08/19 09/08/19 19:58 22:02 23:48 WBC RBC Hgb Hct MCV MCH MCHC RDW Plt Count MPV Neut % (Auto) Lymph % (Auto) [place] % (Auto) Eos % (Auto) Baso % (Auto) Absolute Neuts (auto) Absolute Lymphs (auto) Absolute Monos (auto) Absolute Eos (auto) Absolute Basos (auto) Absolute Nucleated RBC Immature Gran % Neutrophils % Band Neutrophils % Lymphocytes % Monocytes % Nucleated RBC % Normal RBC Morphology Polychromasia Hypochromasia Y[place]itza Cells Schistocytes Patient Temperature ABG pH ABG pH (Temp Correct) ABG pCO2 ABG pCO2 (Temp Corrct ABG pO2 ABG pO2 (Temp Correct ABG HCO3 ABG O2 Saturation ABG Base Excess Respiration Rate O2 Delivery Device Ventilator Type Vent Mode FiO2 Inspiratory Time PEEP Pressure Support Pressure Control EPAP IPAP BiPAP Sodium Potassium Chloride Carbon Dioxide Anion Gap BUN Creatinine Est GFR ( Amer) Est GFR (Non-Af Amer) BUN/Creatinine Ratio Glucose 432 H POC Glucose (mg/dL) 431 H* 394 H Glucose Meter Confirm Hemoglobin A1c Lactic Acid Calcium Ionized Calcium Phosphorus Magnesium Total Bilirubin AST ALT Alkaline Phosphatase Ammonia Total Protein Albumin Globulin Albumin/Globulin Ratio Blood Type Antibody Screen Crossmatch 09/09/19 09/09/19 09/09/19 04:23 05:59 06:17 WBC RBC Hgb 6.6 L Hct 19 L MCV MCH MCHC RDW Plt Count 292 MPV 7.5 Neut % (Auto) Lymph % (Auto) [place] % (Auto) Eos % (Auto) Baso % (Auto) Absolute Neuts (auto) Absolute Lymphs (auto) Absolute Monos (auto) Absolute Eos (auto) Absolute Basos (auto) Absolute Nucleated RBC Immature Gran % Neutrophils % Band Neutrophils % Lymphocytes % Monocytes % Nucleated RBC % Normal RBC Morphology Polychromasia Hypochromasia [place] Cells Schistocytes Patient Temperature ABG pH ABG pH (Temp Correct) ABG pCO2 ABG pCO2 (Temp Corrct ABG pO2 ABG pO2 (Temp Correct ABG HCO3 ABG O2 Saturation ABG Base Excess Respiration Rate O2 Delivery Device Ventilator Type Vent Mode FiO2 Inspiratory Time PEEP Pressure Support Pressure Control EPAP IPAP BiPAP Sodium Potassium Chloride Carbon Dioxide Anion Gap BUN Creatinine Est GFR ( Amer) Est GFR (Non-Af Amer) BUN/Creatinine Ratio Glucose POC Glucose (mg/dL) 233 H 216 H Glucose Meter Confirm Hemoglobin A1c Lactic Acid Calcium Ionized Calcium Phosphorus Magnesium Total Bilirubin AST ALT Alkaline Phosphatase Ammonia Total Protein Albumin Globulin Albumin/Globulin Ratio Blood Type Antibody Screen Crossmatch 09/09/19 09/09/19 09/09/19 06:17 06:17 07:52 WBC RBC Hgb Hct MCV MCH MCHC RDW Plt Count MPV Neut % (Auto) Lymph % (Auto) [place] % (Auto) Eos % (Auto) Baso % (Auto) Absolute Neuts (auto) Absolute Lymphs (auto) Absolute Monos (auto) Absolute Eos (auto) Absolute Basos (auto) Absolute Nucleated RBC Immature Gran % Neutrophils % Band Neutrophils % Lymphocytes % Monocytes % Nucleated RBC % Normal RBC Morphology Polychromasia Hypochromasia Y[place]itza Cells Schistocytes Patient Temperature ABG pH ABG pH (Temp Correct) ABG pCO2 ABG pCO2 (Temp Corrct ABG pO2 ABG pO2 (Temp Correct ABG HCO3 ABG O2 Saturation ABG Base Excess Respiration Rate O2 Delivery Device Ventilator Type Vent Mode FiO2 Inspiratory Time PEEP Pressure Support Pressure Control EPAP IPAP BiPAP Sodium 134 L Potassium 3.6 Chloride 98 L Carbon Dioxide 24 Anion Gap 12 H BUN 38 H Creatinine 7.69 H Est GFR ( Amer) 6.3 Est GFR (Non-Af Amer) 5.2 BUN/Creatinine Ratio 4.9 L Glucose 201 H POC Glucose (mg/dL) Glucose Meter Confirm Hemoglobin A1c 8.4 H Lactic Acid Calcium 7.8 L Ionized Calcium Phosphorus Magnesium Total Bilirubin AST ALT Alkaline Phosphatase Ammonia Total Protein Albumin Globulin Albumin/Globulin Ratio Blood Type B Positive Antibody Screen Negative Crossmatch See Detail 09/09/19 09/09/19 09/09/19 07:53 08:17 12:30 WBC 18.1 H RBC 2.30 L Hgb 6.6 L 6.9 L Hct 20 L 21 L MCV 91 MCH 30 MCHC 33 RDW 18 H Plt Count 392 MPV 8.1 Neut % (Auto) 79.4 Lymph % (Auto) 10.3 [place] % (Auto) 10.1 Eos % (Auto) 0.0 Baso % (Auto) 0.2 Absolute Neuts (auto) 14.4 H Absolute Lymphs (auto) 1.9 Absolute Monos (auto) 1.8 H Absolute Eos (auto) 0.0 Absolute Basos (auto) 0.0 Absolute Nucleated RBC 0.0 Immature Gran % 9.0 Neutrophils % 74.0 Band Neutrophils % 9.0 H Lymphocytes % 11.0 Monocytes % 6.0 Nucleated RBC % 0.1 Normal RBC Morphology Not Reportable Polychromasia 2+ Hypochromasia 1+ Y[place]itza Cells 1+ Schistocytes 1+ Patient Temperature ABG pH ABG pH (Temp Correct) ABG pCO2 ABG pCO2 (Temp Corrct ABG pO2 ABG pO2 (Temp Correct ABG HCO3 ABG O2 Saturation ABG Base Excess Respiration Rate O2 Delivery Device Ventilator Type Vent Mode FiO2 Inspiratory Time PEEP Pressure Support Pressure Control EPAP IPAP BiPAP Sodium Potassium Chloride Carbon Dioxide Anion Gap BUN Creatinine Est GFR ( Amer) Est GFR (Non-Af Amer) BUN/Creatinine Ratio Glucose POC Glucose (mg/dL) 214 H Glucose Meter Confirm Hemoglobin A1c Lactic Acid Calcium Ionized Calcium Phosphorus Magnesium Total Bilirubin AST ALT Alkaline Phosphatase Ammonia Total Protein Albumin Globulin Albumin/Globulin Ratio Blood Type Antibody Screen Crossmatch 09/09/19 09/09/19 09/09/19 12:30 12:30 12:30 WBC RBC Hgb Hct MCV MCH MCHC RDW Plt Count MPV Neut % (Auto) Lymph % (Auto) [place] % (Auto) Eos % (Auto) Baso % (Auto) Absolute Neuts (auto) Absolute Lymphs (auto) Absolute Monos (auto) Absolute Eos (auto) Absolute Basos (auto) Absolute Nucleated RBC Immature Gran % Neutrophils % Band Neutrophils % Lymphocytes % Monocytes % Nucleated RBC % Normal RBC Morphology Polychromasia Hypochromasia [place] Cells Schistocytes Patient Temperature ABG pH ABG pH (Temp Correct) ABG pCO2 ABG pCO2 (Temp Corrct ABG pO2 ABG pO2 (Temp Correct ABG HCO3 ABG O2 Saturation ABG Base Excess Respiration Rate O2 Delivery Device Ventilator Type Vent Mode FiO2 Inspiratory Time PEEP Pressure Support Pressure Control EPAP IPAP BiPAP Sodium 130 L Potassium 3.2 L Chloride 92 L Carbon Dioxide 15 L Anion Gap 23 H BUN 37 H Creatinine 7.58 H Est GFR ( Amer) 6.4 Est GFR (Non-Af Amer) 5.3 BUN/Creatinine Ratio 4.9 L Glucose 270 H POC Glucose (mg/dL) Glucose Meter Confirm 270 H Hemoglobin A1c Lactic Acid Calcium 7.9 L Ionized Calcium 1.07 L Phosphorus 6.8 H Magnesium 2.0 Total Bilirubin 0.20 AST 34 ALT 17 Alkaline Phosphatase 77 Ammonia 90 H Total Protein 5.7 L Albumin 3.0 L Globulin 2.7 Albumin/Globulin Ratio 1.1 Blood Type Antibody Screen Crossmatch 09/09/19 09/09/19 12:30 14:10 WBC RBC Hgb Hct MCV MCH MCHC RDW Plt Count MPV Neut % (Auto) Lymph % (Auto) [place] % (Auto) Eos % (Auto) Baso % (Auto) Absolute Neuts (auto) Absolute Lymphs (auto) Absolute Monos (auto) Absolute Eos (auto) Absolute Basos (auto) Absolute Nucleated RBC Immature Gran % Neutrophils % Band Neutrophils % Lymphocytes % Monocytes % Nucleated RBC % Normal RBC Morphology Polychromasia Hypochromasia Y[place]itza Cells Schistocytes Patient Temperature Not Reportable ABG pH 7.22 L ABG pH (Temp Correct) Not Reportable ABG pCO2 47 H ABG pCO2 (Temp Corrct Not Reportable ABG pO2 109 H ABG pO2 (Temp Correct Not Reportable ABG HCO3 18.3 L ABG O2 Saturation 99.5 H ABG Base Excess -8.5 L Respiration Rate 16 O2 Delivery Device vent Ventilator Type 400 Vent Mode Cmv FiO2 30 Inspiratory Time 1.0 PEEP 5 Pressure Support Not Reportable Pressure Control Not Reportable EPAP Not Reportable IPAP Not Reportable BiPAP Not Reportable Sodium Potassium Chloride Carbon Dioxide Anion Gap BUN Creatinine Est GFR ( Amer) Est GFR (Non-Af Amer) BUN/Creatinine Ratio Glucose POC Glucose (mg/dL) Glucose Meter Confirm Hemoglobin A1c Lactic Acid 12.7 H* Calcium Ionized Calcium Phosphorus Magnesium Total Bilirubin AST ALT Alkaline Phosphatase Ammonia Total Protein Albumin Globulin Albumin/Globulin Ratio Blood Type Antibody Screen Crossmatch Pt. is intubated, calm. NG tube with over 300 cc green/brown bile. RLE - dressing c/d/i. distal 2+ dp pulses. Assessment: 69 yo diabetic female with chronic kidney disease on peritoneal dialysis. POD 1 s/p RTKA with seizure and respiratory distress. Plan: unknown cause of seizure - neurology consulted and eeg without abnormality. plan to get a CT to eval for CVA desat - now intubated. possible aspiration, plan to get CTA to eval for PE discussed the patient's condition with her two daughters- they wish to have aggressive intervention and all possible tests. discussed the patient with Asuncion Joseph and Dr. Schaeffer of neurology - both providers will follow up with pt's daughters as well. ortho to follow.
[2019-09-09] MEDS ORDERED: Zosyn per Pharmacy* NOTE FOLLOW UP SCH (15:00)
--- NOTE | 2019-09-09 15:26 | PN ---
Progress Note - Progress Note Date of Service: 09/09/19 SOAP: [Pt was seen this morning sitting in chair. The pt was yelling loudly and beating her chest. Nurse was concerned. The clinical assessment team was called to address the pt at that time. The pt started to have a seizure at the time. Her body became rigid. She was unresponsive but continued to have a pulse. Vitals were obtained and she was found to have an O2 sat dropping into the 70s. O2 was increased and she returned to 98 for the time. She continued to be non responsive once the seizure ended. The clinical assessment team wished to transfer the pt to the ICU at that time for further monitoring and to obtain an EEG. She was transferred to the ICU were she then had another seizure. She desaturated to 40 and was then intubated. An ng tube was placed to decompress. ICU will continue to monitor the pt. We will continue to follow the pt. ]
[2019-09-09] MEDS: Chlorhexidine MOUTHWASH 0.12%* 15 ML UDC TOPICAL SCH ×2 (17:24→19:56)
[2019-09-09] MEDS: Isosorbide Mononitrate ER TAB* 30 MG PO SCH (17:24)
--- NOTE | 2019-09-09 17:45 | OP ---
Operative Report - Blank - Operative Report Date of Operation: 09/09/19 Note: Central Line Procedure Note Indication: venous access Diagnosis: seizures, acute hypoxic respiratory failure Performed by: Rachel Hunt BEATER AND PULPER FEEDER Supervised by: Bar Jewell MD Consent: Informed; placed in bedside chart Risks of procedure were explained if possible, all risks of pain/discomfort, bleeding, infection, PTX, Hemotx, need for chest tube, air/wire embolism, vessel injury, , and failed procedure disclosed and understanding verbalized [place] Protocol: Time-out was performed and the correct patient and site were verified a left supraclavicular and lower neck subcutaneous collection noted, prior to starting of central line, with some eccymosis, likely from infiltration of the prior left EJ line which was infusing blood - Prior labs/history was reviewed prior to procedure - Full sterile precautions with chlorhexidine/full drapes/gowns/gloves utilized - Left Internal Jugular Vein visualized with ultrasound - Vessel accessed under ultrasound guidance with return of nonpulsatile blood. A guidewire was passed into vessel and confirmed in vessel with ultrasound. 1 attempt was made to access vessel. Vessel was dilated and cathetor was passed over wire into vessel. All ports demonstrated good blood return and flushed. Catheter was sutured to site and dressing applied. Adequate hemostasis was achieved EBL <5 cc No immediate complications noted, patient tolerated procedure well. Post Procedure CXR: left IJ curved into left subclavian vein Left IJ central line was removed by me after procedure, no bleeding noted. Bar Jewell MD Telephone Cleaner (Electronically Signed)
--- NOTE | 2019-09-09 17:46 | OP ---
Operative Report - Blank - Operative Report Note: Central Line Procedure Note Indication: venous access Diagnosis: seizures, acute hypoxic respiratory failure Performed by: Bar Jewell MD Consent: Informed ; placed in bedside chart Risks of procedure were explained if possible, all risks of pain/discomfort, bleeding, infection, PTX, Hemotx, need for chest tube, air/wire embolism, vessel injury, , and failed procedure disclosed and understanding verbalized [place] Protocol: Time-out was performed and the correct patient and site were verified - Prior labs/history was reviewed prior to procedure - Full sterile precautions with chlorhexidine/full drapes/gowns/gloves utilized - Right Internal Jugular Vein visualized with ultrasound - Vessel accessed under ultrasound guidance with return of nonpulsatile blood. A guidewire was passed into vessel and confirmed in vessel with ultrasound. 1 attempt was made to access vessel. Vessel was dilated and cathetor was passed over wire into vessel. All ports demonstrated good blood return and flushed. Catheter was sutured to site and dressing applied. Adequate hemostasis was achieved EBL <4 cc No immediate complications noted, patient tolerated procedure well. Post Procedure CXR: RIJ central line in place, no ptx okay to use line Bar Jewell MD Client Integration Manager (Electronically Signed)
[2019-09-09 18:00] LABS: Hematocrit 18 % (35-47); Hemoglobin 6.3 g/dL (12.0-16.0); Mean Corpuscular HGB Conc 35 g/dL (31-36); Mean Corpuscular Hemoglobin 31 pg (27-31); Mean Corpuscular Volume 87 fL (80-97); Mean Platelet Volume 7.9 fL (7.4-10.4); Platelet Count 275 10^3/uL (150-450); Red Blood Count 2.05 10^6 /uL (3.70-4.87); Red Cell Distribution Width 18 % (10-15); White Blood Count 11.3 10^3/uL (3.5-10.8)
[2019-09-09 18:12] LABS: BUN/Creatinine Ratio 4.7 (8-20); Calcium 7.6 mg/dL (8.6-10.3); EGFR African American 7.1 (>60); EGFR Non-African American 5.9 (>60)
[2019-09-09] MEDS ORDERED: Iodixanol* (CONTRAST) 320 MG/ML 100 ML SDV IV ONE (18:17)
[2019-09-09 18:19] LABS: Potassium 2.7 mmol/L (3.5-5.0)
--- NOTE | 2019-09-09 18:47 | CONS ---
CONSULTATION REPORT: DATE OF CONSULT: 09/09/19 PATIENT OF: Dr. Lisa Jarvis and Meagan Joseph NP HISTORY OF PRESENT ILLNESS: This is a 69-year-old woman who I am asked to see for new onset of seizures. She had a right total knee arthroplasty done yesterday without complication and then roughly at 12:30 she had an episode of screaming followed by a brief seizure. I spoke to the ICU nurse who went over and brought her to the unit and witnessed a second seizure that occurred shortly afterwards, which consisted of turning of the head to the right with generalized clonic activity lasting perhaps a minute or two. She was intubated and paralyzed at that point. PAST MEDICAL HISTORY: She has multiple medical problems including end-stage renal disease, on peritoneal dialysis; hypertension; hyperlipidemia; diabetes type 2; anemia from chronic disease; iron-deficiency anemia; small bowel AV malformation; history of hepatitis virus; history of right breast cancer, status post lumpectomy. She has had severe anemia as well. PAST SURGICAL HISTORY: She is status post left knee replacement, right breast lumpectomy, bilateral cataract surgery, tubal ligation, carpal tunnel release. MEDICATIONS: Medications at home include: 1. Amlodipine 10 mg daily. 2. Calcitriol 0.25 mcg p.o. daily. 3. Clonidine 0.3 mg t.i.d. 4. Diltiazem 240 mg daily. 5. Insulin on a sliding scale daily. 6. Isosorbide mononitrate ER 30 mg at bedtime. 7. Labetalol 300 b.i.d. 8. Lorazepam 0.5 p.r.n. 9. Omeprazole 20 mg b.i.d. 10. Terazosin 10 mg at bedtime. Her current medications include: 1. Propofol drip. 2. P.o. meds that she is not currently taking. 3. Ativan p.r.n. 4. She has been loaded with Keppra and is getting Keppra 500 mg twice a day. 5. Insulin subcu. DRUG ALLERGIES: Include ENALAPRIL, VERAPAMIL, HYDRALAZINE. FAMILY HISTORY: Mother at 38 of complications of diabetes. Father at 54 of an [place]. SOCIAL HISTORY: The patient quit smoking in 2017 and does not use alcohol. 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 PHYSICAL EXAM: She is afebrile, pulse 76, respirations 17, blood pressure 136/ 68. At roughly the time of recurrence, she had blood pressure as low as 86/64, but I have checked with the surgical floor and her blood pressure was not that low. This was when she was brought over and procedures were being performed. Chest: Clear. Cardiovascular: Regular rate and rhythm. Abdomen was soft. She is unresponsive secondary to her medications. Before she was given the propofol and sedated in association with intubation, she apparently was moving all extremities, but no formal neurological exam was done at that point prior to intubation given her extremely critical condition. DIAGNOSTIC STUDIES/LAB DATA: Her EEG showed some slowing, but no acute problems. Her hemoglobin is 6.9 with hematocrit of 21, platelet count of 392, white count of 18.1, and she is being transfused. She has PTT of 38. Blood gas at 2 p.m. was 7.22, pCO2 of 47, pO2 of 109. Sodium was 130, BUN 37, creatinine 7.58, glucose 270. Hemoglobin A1c 8.4. Calcium 7.9, magnesium 2. Normal liver function tests. Ammonia 90. IMPRESSION AND PLAN: I discussed with her ICU doctors as well as her daughter and Dr. Jarvis that she has had 2 seizures today that by description sound focal. For now, she will be continued on the Keppra and the propofol will have anticonvulsant properties as well. The issue is why did she have these seizures. It is possible that this could be due to metabolic derangement. She would be given her cardiovascular risk factors be at risk for stroke and this needs to be ruled out acutely. The CT scan would rule out bleeds, but not rule out a stroke and we need to make sure she does not have a large vessel occlusion. The ICU attending thought that she was too unstable to go down for a CT scan before she was transfused, so she will immediately get a CT/CTA following that to rule out a large vessel occlusion. I discussed with the care providers and the daughter that if she had a large vessel occlusion then she would be considered for clot retrieval. She should have an echo to make sure she has no clot or patent foramen ovale. The echo should be done with bubble study. Thank you for sharing her case. [id number]/[facility] #: [id number] ALLIE
[2019-09-09] MEDS ORDERED: KCL 20 MEQ/100 ML IVPREMIX* 20 MEQ/100 ML BAG IV ONE (18:48)
[2019-09-09] MEDS ORDERED: LORazepam INJ* 2 MG/ML 1 ML VIAL IV PUSH PRN (19:05)
[2019-09-09] MEDS: Propofol* 100 ML IV SCH (19:54)
[2019-09-09] MEDS: Terazosin CAP* 5 MG PO SCH (21:42)
--- NOTE | 2019-09-09 23:13 | EEG ---
ELECTROENCEPHALOGRAPHY REPORT: DATE OF STUDY: 09/08/19 DATE OF DICTATION: 09/09/19 PATIENT OF: Dr. Lisa Jarvis and Kylie Cline NP CLINICAL PROBLEM: This is a 69-year-old woman being evaluated for new onset of focal seizures. Of note, she had a right knee replacement yesterday. She has renal failure. MEDICATIONS: Include Keppra and sedative medications but they are not listed on her EEG tracing. REPORT: With the patient intubated and sedated, background consists of moderated diffuse admixture of theta, alpha and beta range frequencies with some admixed delta activity. No epileptiform potentials, focal abnormalities, or major asymmetries of background are noted. CLINICAL IMPRESSION: This EEG with the patient sedated shows no epileptiform potentials or focal abnormalities. The slowing that is seen may be secondary to medications the patient is receiving, but a generalized encephalopathy cannot be ruled out on this study. [id number]/[facility] #: [id number] MTDD
[2019-09-10] MEDS: Propofol* 100 ML IV SCH ×3 (00:05→08:49)
[2019-09-10] MEDS: Chlorhexidine MOUTHWASH 0.12%* 15 ML UDC TOPICAL SCH ×5 (00:27→15:34)
[2019-09-10] MEDS: Insulin LISPRO* 1 UNITS UNIT SUBCUT SCH ×4 (01:07→18:13)
[2019-09-10 03:53] LABS: ABS Lymphocytes 0.6 10^3/ul (1.0-4.8); ABS Monocytes 0.8 10^3/ul (0-0.8); ABS Neutrophils 8.6 10^3/ul (1.5-7.7); Eosinophil % 0.1 %; Hematocrit 26 % (35-47); Lymphocyte % 5.7 %; Mean Corpuscular HGB Conc 35 g/dL (31-36); Mean Corpuscular Hemoglobin 29 pg (27-31); Mean Corpuscular Volume 84 fL (80-97); Mean Platelet Volume 7.7 fL (7.4-10.4); Platelet Count 260 10^3/uL (150-450); Red Blood Count 3.11 10^6 /uL (3.70-4.87); Red Cell Distribution Width 17 % (10-15)
[2019-09-10] MEDS: Morphine INJ* 2 MG/ML 1 ML SYRINGE (TWO MG - NEW SYRINGE VERSION) IV PRN ×2 (04:02→11:16)
[2019-09-10 05:50] LABS: Hematocrit 25 % (35-47); Hemoglobin 8.9 g/dL (12.0-16.0); Mean Corpuscular HGB Conc 35 g/dL (31-36); Mean Corpuscular Hemoglobin 29 pg (27-31); Mean Corpuscular Volume 84 fL (80-97); Mean Platelet Volume 7.5 fL (7.4-10.4); Platelet Count 253 10^3/uL (150-450); Red Blood Count 3.02 10^6 /uL (3.70-4.87); Red Cell Distribution Width 17 % (10-15); White Blood Count 9.6 10^3/uL (3.5-10.8)
[2019-09-10 06:06] LABS: Calcium 7.3 mg/dL (8.6-10.3); EGFR Non-African American 5.8 (>60)
[2019-09-10 06:08] LABS: Potassium 2.7 mmol/L (3.5-5.0)
[2019-09-10] MEDS: Acetaminophen ADULT LIQ* 650 MG/20.3 ML UDC PO SCH ×2 (06:25→15:33)
[2019-09-10] MEDS: KCL 20 MEQ/100 ML IVPREMIX* 20 MEQ/100 ML BAG IV SCH ×2 (06:34→07:55)
[2019-09-10] MEDS: Lactated Ringers 1000 ML Bag* 1,000 ML IV SCH ×2 (06:39→17:01)
[2019-09-10] MEDS: Acetaminophen TAB* 325 MG PO SCH (07:43)
[2019-09-10] MEDS ORDERED: levETIRAcetam 500 MG IVPREMIX* 500 MG/100 ML BAG IV SCH (08:00)
[2019-09-10] MEDS: ZOSYN 3.375 GM Q12H per EXTENDED INFUSION IVPB SCH ×4 (08:50→20:20)
[2019-09-10] MEDS: Insulin GLARGINE(*) 1 UNITS UNIT SUBCUT SCH (09:40)
[2019-09-10] MEDS: Vitamin THERAPEUTIC TAB PO SCH (10:02)
[2019-09-10] MEDS: Labetalol TAB* 300 MG PO SCH ×2 (10:02→20:21)
[2019-09-10] MEDS: cloNIDine TAB* 0.1 MG PO SCH ×3 (10:02→20:21)
[2019-09-10] MEDS: amLODIPine TAB* 5 MG PO SCH (10:02)
[2019-09-10] MEDS: Pantoprazole TAB * 40 MG TAB PO SCH ×2 (10:02→20:21)
[2019-09-10] MEDS: Calcitriol CAP* 0.25 MCG PO SCH (10:02)
[2019-09-10] MEDS: Diltiazem CD CAP* 240 MG PO SCH (10:02)
[2019-09-10] MEDS: Magnesium Hydroxide LIQ* 30 ML UDC PO SCH ×2 (10:03→20:22)
[2019-09-10] MEDS: Docusate CAP* 100 MG PO SCH ×2 (10:03→19:40)
--- NOTE | 2019-09-10 10:43 | PN ---
Progress Note - Progress Note Date of Service: 09/10/19 SOAP: Subjective: Pt. intubated, sedated. Nursing administering peritoneal dialysis now. Objective: Vital Signs: Temp Pulse Resp BP Pulse Ox 98.1 F 78 20 165/76 99 09/10/19 06:15 09/10/19 06:15 09/10/19 05:56 09/10/19 06:15 09/10/19 06:15 Laboratory Results - last 24 hr 09/09/19 09/09/19 09/09/19 04:23 05:59 07:52 WBC RBC Hgb Hct MCV MCH MCHC RDW Plt Count MPV Neut % (Auto) Lymph % (Auto) Pope % (Auto) Eos % (Auto) Baso % (Auto) Absolute Neuts (auto) Absolute Lymphs (auto) Absolute Monos (auto) Absolute Eos (auto) Absolute Basos (auto) Absolute Nucleated RBC Immature Gran % Neutrophils % Band Neutrophils % Lymphocytes % Monocytes % Nucleated RBC % Normal RBC Morphology Polychromasia Hypochromasia [place] Cells Schistocytes Patient Temperature ABG pH ABG pH (Temp Correct) ABG pCO2 ABG pCO2 (Temp Corrct ABG pO2 ABG pO2 (Temp Correct ABG HCO3 ABG O2 Saturation ABG Base Excess Respiration Rate O2 Delivery Device Ventilator Type Vent Mode FiO2 Inspiratory Time PEEP Pressure Support Pressure Control EPAP IPAP BiPAP Sodium Potassium Chloride Carbon Dioxide Anion Gap BUN Creatinine Est GFR ( Amer) Est GFR (Non-Af Amer) BUN/Creatinine Ratio Glucose POC Glucose (mg/dL) 233 H 216 H Glucose Meter Confirm Lactic Acid Calcium Ionized Calcium Phosphorus Magnesium Total Bilirubin AST ALT Alkaline Phosphatase Ammonia Total Protein Albumin Globulin Albumin/Globulin Ratio Blood Type B Positive Antibody Screen Negative Crossmatch See Detail Transfusion React Rpt Donor Unit # Post-Trans Blood Type Post-Trans DWAIN 09/09/19 09/09/19 09/09/19 08:17 12:30 12:30 WBC 18.1 H RBC 2.30 L Hgb 6.9 L Hct 21 L MCV 91 MCH 30 MCHC 33 RDW 18 H Plt Count 392 MPV 8.1 Neut % (Auto) 79.4 Lymph % (Auto) 10.3 Pope % (Auto) 10.1 Eos % (Auto) 0.0 Baso % (Auto) 0.2 Absolute Neuts (auto) 14.4 H Absolute Lymphs (auto) 1.9 Absolute Monos (auto) 1.8 H Absolute Eos (auto) 0.0 Absolute Basos (auto) 0.0 Absolute Nucleated RBC 0.0 Immature Gran % 9.0 Neutrophils % 74.0 Band Neutrophils % 9.0 H Lymphocytes % 11.0 Monocytes % 6.0 Nucleated RBC % 0.1 Normal RBC Morphology Not Reportable Polychromasia 2+ Hypochromasia 1+ [place]ar[place] Cells 1+ Schistocytes 1+ Patient Temperature ABG pH ABG pH (Temp Correct) ABG pCO2 ABG pCO2 (Temp Corrct ABG pO2 ABG pO2 (Temp Correct ABG HCO3 ABG O2 Saturation ABG Base Excess Respiration Rate O2 Delivery Device Ventilator Type Vent Mode FiO2 Inspiratory Time PEEP Pressure Support Pressure Control EPAP IPAP BiPAP Sodium 130 L Potassium 3.2 L Chloride 92 L Carbon Dioxide 15 L Anion Gap 23 H BUN 37 H Creatinine 7.58 H Est GFR ( Amer) 6.4 Est GFR (Non-Af Amer) 5.3 BUN/Creatinine Ratio 4.9 L Glucose 270 H POC Glucose (mg/dL) 214 H Glucose Meter Confirm 270 H Lactic Acid Calcium 7.9 L Ionized Calcium Phosphorus 6.8 H Magnesium 2.0 Total Bilirubin 0.20 AST 34 ALT 17 Alkaline Phosphatase 77 Ammonia Total Protein 5.7 L Albumin 3.0 L Globulin 2.7 Albumin/Globulin Ratio 1.1 Blood Type Antibody Screen Crossmatch Transfusion React Rpt Donor Unit # Post-Trans Blood Type Post-Trans DWAIN 09/09/19 09/09/19 09/09/19 12:30 12:30 12:30 WBC RBC Hgb Hct MCV MCH MCHC RDW Plt Count MPV Neut % (Auto) Lymph % (Auto) Pope % (Auto) Eos % (Auto) Baso % (Auto) Absolute Neuts (auto) Absolute Lymphs (auto) Absolute Monos (auto) Absolute Eos (auto) Absolute Basos (auto) Absolute Nucleated RBC Immature Gran % Neutrophils % Band Neutrophils % Lymphocytes % Monocytes % Nucleated RBC % Normal RBC Morphology Polychromasia Hypochromasia [place] Cells Schistocytes Patient Temperature ABG pH ABG pH (Temp Correct) ABG pCO2 ABG pCO2 (Temp Corrct ABG pO2 ABG pO2 (Temp Correct ABG HCO3 ABG O2 Saturation ABG Base Excess Respiration Rate O2 Delivery Device Ventilator Type Vent Mode FiO2 Inspiratory Time PEEP Pressure Support Pressure Control EPAP IPAP BiPAP Sodium Potassium Chloride Carbon Dioxide Anion Gap BUN Creatinine Est GFR ( Amer) Est GFR (Non-Af Amer) BUN/Creatinine Ratio Glucose POC Glucose (mg/dL) Glucose Meter Confirm Lactic Acid 12.7 H* Calcium Ionized Calcium 1.07 L Phosphorus Magnesium Total Bilirubin AST ALT Alkaline Phosphatase Ammonia 90 H Total Protein Albumin Globulin Albumin/Globulin Ratio Blood Type Antibody Screen Crossmatch Transfusion React Rpt Donor Unit # Post-Trans Blood Type Post-Trans DWAIN 09/09/19 09/09/19 09/09/19 12:42 14:10 17:00 WBC RBC Hgb Hct MCV MCH MCHC RDW Plt Count MPV Neut % (Auto) Lymph % (Auto) Pope % (Auto) Eos % (Auto) Baso % (Auto) Absolute Neuts (auto) Absolute Lymphs (auto) Absolute Monos (auto) Absolute Eos (auto) Absolute Basos (auto) Absolute Nucleated RBC Immature Gran % Neutrophils % Band Neutrophils % Lymphocytes % Monocytes % Nucleated RBC % Normal RBC Morphology Polychromasia Hypochromasia [place] Cells Schistocytes Patient Temperature Not Reportable ABG pH 7.22 L ABG pH (Temp Correct) Not Reportable ABG pCO2 47 H ABG pCO2 (Temp Corrct Not Reportable ABG pO2 109 H ABG pO2 (Temp Correct Not Reportable ABG HCO3 18.3 L ABG O2 Saturation 99.5 H ABG Base Excess -8.5 L Respiration Rate 16 O2 Delivery Device vent Ventilator Type 400 Vent Mode Cmv FiO2 30 Inspiratory Time 1.0 PEEP 5 Pressure Support Not Reportable Pressure Control Not Reportable EPAP Not Reportable IPAP Not Reportable BiPAP Not Reportable Sodium 132 L Potassium 2.7 L* Chloride 95 L Carbon Dioxide 20 L Anion Gap 17 H BUN 33 H Creatinine 6.98 H Est GFR ( Amer) 7.1 Est GFR (Non-Af Amer) 5.9 BUN/Creatinine Ratio 4.7 L Glucose 319 H POC Glucose (mg/dL) 297 H Glucose Meter Confirm Lactic Acid Calcium 7.6 L Ionized Calcium Phosphorus Magnesium Total Bilirubin AST ALT Alkaline Phosphatase Ammonia Total Protein Albumin Globulin Albumin/Globulin Ratio Blood Type Antibody Screen Crossmatch Transfusion React Rpt Donor Unit # Post-Trans Blood Type Post-Trans DWAIN 09/09/19 09/09/19 09/09/19 17:00 17:00 17:18 WBC 11.3 H RBC 2.05 L Hgb 6.3 L* Hct 18 L MCV 87 MCH 31 MCHC 35 RDW 18 H Plt Count 275 MPV 7.9 Neut % (Auto) Lymph % (Auto) Pope % (Auto) Eos % (Auto) Baso % (Auto) Absolute Neuts (auto) Absolute Lymphs (auto) Absolute Monos (auto) Absolute Eos (auto) Absolute Basos (auto) Absolute Nucleated RBC Immature Gran % Neutrophils % Band Neutrophils % Lymphocytes % Monocytes % Nucleated RBC % Normal RBC Morphology Polychromasia Hypochromasia [place] Cells Schistocytes Patient Temperature ABG pH ABG pH (Temp Correct) ABG pCO2 ABG pCO2 (Temp Corrct ABG pO2 ABG pO2 (Temp Correct ABG HCO3 ABG O2 Saturation ABG Base Excess Respiration Rate O2 Delivery Device Ventilator Type Vent Mode FiO2 Inspiratory Time PEEP Pressure Support Pressure Control EPAP IPAP BiPAP Sodium Potassium Chloride Carbon Dioxide Anion Gap BUN Creatinine Est GFR ( Amer) Est GFR (Non-Af Amer) BUN/Creatinine Ratio Glucose POC Glucose (mg/dL) 361 H Glucose Meter Confirm Lactic Acid 5.2 H* Calcium Ionized Calcium Phosphorus Magnesium Total Bilirubin AST ALT Alkaline Phosphatase Ammonia Total Protein Albumin Globulin Albumin/Globulin Ratio Blood Type Antibody Screen Crossmatch Transfusion React Rpt Donor Unit # Post-Trans Blood Type Post-Trans DWAIN 09/09/19 09/10/19 09/10/19 22:22 00:27 02:25 WBC RBC Hgb Hct MCV MCH MCHC RDW Plt Count MPV Neut % (Auto) Lymph % (Auto) Pope % (Auto) Eos % (Auto) Baso % (Auto) Absolute Neuts (auto) Absolute Lymphs (auto) Absolute Monos (auto) Absolute Eos (auto) Absolute Basos (auto) Absolute Nucleated RBC Immature Gran % Neutrophils % Band Neutrophils % Lymphocytes % Monocytes % Nucleated RBC % Normal RBC Morphology Polychromasia Hypochromasia [place] Cells Schistocytes Patient Temperature ABG pH ABG pH (Temp Correct) ABG pCO2 ABG pCO2 (Temp Corrct ABG pO2 ABG pO2 (Temp Correct ABG HCO3 ABG O2 Saturation ABG Base Excess Respiration Rate O2 Delivery Device Ventilator Type Vent Mode FiO2 Inspiratory Time PEEP Pressure Support Pressure Control EPAP IPAP BiPAP Sodium Potassium Chloride Carbon Dioxide Anion Gap BUN Creatinine Est GFR ( Amer) Est GFR (Non-Af Amer) BUN/Creatinine Ratio Glucose POC Glucose (mg/dL) 186 H Glucose Meter Confirm Lactic Acid 3.5 H* Calcium Ionized Calcium Phosphorus Magnesium Total Bilirubin AST ALT Alkaline Phosphatase Ammonia Total Protein Albumin Globulin Albumin/Globulin Ratio Blood Type Antibody Screen Crossmatch Transfusion React Rpt Donor Unit # [id number] Post-Trans Blood Type B Positive Post-Trans DWAIN Negative 09/10/19 09/10/19 09/10/19 03:18 03:18 05:40 WBC 10.0 RBC 3.11 L Hgb 9.0 L Hct 26 L MCV 84 MCH 29 MCHC 35 RDW 17 H Plt Count 260 MPV 7.7 Neut % (Auto) 85.9 Lymph % (Auto) 5.7 Pope % (Auto) 8.2 Eos % (Auto) 0.1 Baso % (Auto) 0.1 Absolute Neuts (auto) 8.6 H Absolute Lymphs (auto) 0.6 L Absolute Monos (auto) 0.8 Absolute Eos (auto) 0.0 Absolute Basos (auto) 0.0 Absolute Nucleated RBC 0.0 Immature Gran % Neutrophils % Band Neutrophils % Lymphocytes % Monocytes % Nucleated RBC % 0.0 Normal RBC Morphology Polychromasia Hypochromasia [place] Cells Schistocytes Patient Temperature ABG pH ABG pH (Temp Correct) ABG pCO2 ABG pCO2 (Temp Corrct ABG pO2 ABG pO2 (Temp Correct ABG HCO3 ABG O2 Saturation ABG Base Excess Respiration Rate O2 Delivery Device Ventilator Type Vent Mode FiO2 Inspiratory Time PEEP Pressure Support Pressure Control EPAP IPAP BiPAP Sodium 133 L Potassium 2.7 L* Chloride 99 L Carbon Dioxide 22 Anion Gap 12 H BUN 35 H Creatinine 7.07 H Est GFR ( Amer) 7.0 Est GFR (Non-Af Amer) 5.8 BUN/Creatinine Ratio 5.0 L Glucose 88 POC Glucose (mg/dL) Glucose Meter Confirm Lactic Acid 2.2 H* Calcium 7.3 L Ionized Calcium Phosphorus Magnesium 2.0 Total Bilirubin AST ALT Alkaline Phosphatase Ammonia Total Protein Albumin Globulin Albumin/Globulin Ratio Blood Type Antibody Screen Crossmatch Transfusion React Rpt Donor Unit # Post-Trans Blood Type Post-Trans DWAIN 09/10/19 05:40 WBC 9.6 RBC 3.02 L Hgb 8.9 L Hct 25 L MCV 84 MCH 29 MCHC 35 RDW 17 H Plt Count 253 MPV 7.5 Neut % (Auto) Lymph % (Auto) Pope % (Auto) Eos % (Auto) Baso % (Auto) Absolute Neuts (auto) Absolute Lymphs (auto) Absolute Monos (auto) Absolute Eos (auto) Absolute Basos (auto) Absolute Nucleated RBC Immature Gran % Neutrophils % Band Neutrophils % Lymphocytes % Monocytes % Nucleated RBC % Normal RBC Morphology Polychromasia Hypochromasia [place] Cells Schistocytes Patient Temperature ABG pH ABG pH (Temp Correct) ABG pCO2 ABG pCO2 (Temp Corrct ABG pO2 ABG pO2 (Temp Correct ABG HCO3 ABG O2 Saturation ABG Base Excess Respiration Rate O2 Delivery Device Ventilator Type Vent Mode FiO2 Inspiratory Time PEEP Pressure Support Pressure Control EPAP IPAP BiPAP Sodium Potassium Chloride Carbon Dioxide Anion Gap BUN Creatinine Est GFR ( Amer) Est GFR (Non-Af Amer) BUN/Creatinine Ratio Glucose POC Glucose (mg/dL) Glucose Meter Confirm Lactic Acid Calcium Ionized Calcium Phosphorus Magnesium Total Bilirubin AST ALT Alkaline Phosphatase Ammonia Total Protein Albumin Globulin Albumin/Globulin Ratio Blood Type Antibody Screen Crossmatch Transfusion React Rpt Donor Unit # Post-Trans Blood Type Post-Trans DWAIN RLE - dressing c/d/i, distally warm, 2+DP pulse. Assessment: 69 yo female pod 2 s/p RTKA - postop seizures without cause. Plan: Brain imaging negative for CVA hypokalemia this AM- will replace potassium peritoneal dialysis daily appreciate ICU team - plan to attempt extubation today. appreciate neurology consult family at bedside - we discussed the plan and possible outcomes.
[2019-09-10] MEDS: Mupirocin 2% OINT* TUBE TOPICAL SCH (10:51)
--- NOTE | 2019-09-10 11:32 | PN ---
Progress Note - Progress Note Date of Service: 09/10/19 Note: Progress Note -- Critical Care 24 hour events -events noted yesterday; intubated, seizures, given prbc, CT/CTA negative -overnight 2 more prbc given, total of 4 yesterday -noted left lower neck and supraclav infitlration of blood and so hematoma from blood transfusion noted -left IJ TLC placed, went into left SC, removed; right IJ in place -CT brain negative, CTA negative -hypothermic overnight, temp increased with warming blanket; now 97.3 -BP stable, HR stable, NSR -sedated, intubated; awoke on sedation hold overnight; off sedation now and opening eyes and starting to follow commands -CPAP to be started -no further seizures were noted -no further sig ngt output now overnight; abd soft/nondistended, no diarrhea -family at bedside this morning Tele: NSR Vitals: Vital Signs Temp 97.3 F 09/10/19 11:00 Pulse 76 09/10/19 11:00 Resp 20 09/10/19 07:00 BP 164/89 09/10/19 11:00 Pulse Ox 98 09/10/19 11:00 Intake & Output 09/09/19 09/10/19 09/10/19 18:59 06:59 18:59 Intake Total 822 2579 Output Total 0 0 Balance 822 2579 Intake: IV Fluids 644 1205 LR 644 975 NS 230 IVPB 58 325 ABX 110 ABX - CEFAZOLIN 58 K 110 Keppra 105 Medicated IV 386 Propofol 386 Oral 120 Packed Cells 663 Output: Urine 0 0 O2/Vent: AC 16/450/+5/25% Infusions: propofol Current Medications: Acetaminophen (Tylenol Adult Liq*) 975 mg PO Q8HR [facility] Last Admin: 09/10/19 06:25 Dose: 975 mg Amlodipine Besylate (Norvasc Tab*) 10 mg PO [facility] Last Admin: 09/10/19 10:02 Dose: 10 mg Bisacodyl (Dulcolax Supp*) 10 mg NE DAILY PRN PRN Reason: CONSTIPATION Calcitriol (Rocaltrol Cap*) [facility] Admin: 09/10/19 10:02 Dose: Not Given Chlorhexidine Gluconate (Peridex Mouth Wash 0.12%*) 15 ml TOPICAL Q4H [facility] Last Admin: 09/10/19 07:56 Dose: 15 ml Clonidine HCl (Catapres Tab*) 0.3 mg PO TID [facility] Last Admin: 09/10/19 10:02 Dose: 0.3 mg Cyclobenzaprine HCl (Flexeril Tab*) 10 mg PO Q6H PRN PRN Reason: SPASMS Dextrose (D50w Syringe 50 Ml*) 12.5 gm IV PUSH .FOR FS < 60 - SS PRN PRN Reason: FS < 60 Diltiazem HCl (Cardizem Cd Cap*) 240 mg PO QAM [facility] Last Admin: 09/10/19 10:02 Dose: 240 mg Diphenhydramine HCl (Benadryl Iv*) 25 mg IV Q6H PRN PRN Reason: PRURITIS Diphenhydramine HCl (Benadryl Liq*) 12.5 mg PO Q6H PRN PRN Reason: PRURITIS Diphenhydramine HCl (Benadryl Po*) 25 mg PO Q6H PRN PRN Reason: PRURITIS Docusate Sodium (Colace Cap*) 100 mg PO BID [facility] Last Admin: 09/10/19 10:03 Dose: Not Given Lactated Ringer's (Lactated Ringers 1000 Ml Bag*) 1,000 mls @ 100 mls/hr IV PER RATE [facility] Last Admin: 09/10/19 06:39 Dose: 100 mls/hr Propofol (Diprivan*) 100 mls @ 9.308 mls/hr IV .PER PROTOCOL [facility]; Protocol Last Admin: 09/10/19 08:49 Dose: 20.8 mls/hr Levetiracetam (Keppra Iv Premix*) 500 mg in 100 mls @ 400 mls/hr IV Q12H [facility] Last Admin: 09/10/19 07:56 Dose: 400 mls/hr Piperacillin Sod/Tazobactam (Sod 3.375 gm/ Sodium Chloride) 100 mls @ 25 mls/ hr IVPB Q12H [facility] Last Admin: 09/10/19 08:50 Dose: 25 mls/hr Insulin Glargine (Lantus(*)) 8 units SUBCUT [facility] Last Admin: 09/10/19 09:40 Dose: Not Given Insulin Human Lispro (Humalog*) 0 units SUBCUT Q6H [facility]; Protocol Last Admin: 09/10/19 06:10 Dose: Not Given Isosorbide Mononitrate (Imdur Er Tab*) 30 mg PO QPM [facility] Last Admin: 09/09/19 17:24 Dose: Not Given Labetalol HCl (Trandate Tab*) 300 mg PO BID [facility] Last Admin: 09/10/19 10:02 Dose: 300 mg Lactulose (Lactulose*) 30 ml PO BID PRN PRN Reason: CONSTIPATION Lorazepam (Ativan Tab(*)) 0.5 mg PO BID PRN PRN Reason: ANXIETY Lorazepam (Ativan Inj*) 1 mg IV PUSH Q6H PRN PRN Reason: seizure Magnesium Hydroxide (Milk Of Magnesia Liq*) 30 ml PO BID [facility] Last Admin: 09/10/19 10:03 Dose: 30 ml Magnesium Hydroxide (Milk Of Magnesia Liq*) 30 ml PO Q6H PRN PRN Reason: CONSTIPATION Miscellaneous (Ativan Pyxis Zurita) 1 ea N/A .ATIVAN IV ZURITA PRN PRN Reason: PYXIS ZURITA Miscellaneous (Ativan Pyxis Zurita) 1 ea N/A .ATIVAN IV ZURITA PRN PRN Reason: PYXIS ZURITA Morphine Sulfate (Morphine Inj (Syringe))*) 2 mg IV Q4H PRN PRN Reason: Pain - Unrelieved Last Admin: 09/10/19 04:02 Dose: 2 mg Multivitamins (Theragran Tab*) 1 tab PO DAILY [facility] Last Admin: 09/10/19 10:02 Dose: 1 tab Mupirocin (Bactroban 2 % Oint*) 1 applic TOPICAL DAILY@1000 [facility] Last Admin: 09/10/19 10:51 Dose: 1 applic Ondansetron HCl (Zofran Odt Tab*) 4 mg PO Q6H PRN PRN Reason: NAUSEA Last Admin: 09/09/19 09:27 Dose: 4 mg Ondansetron HCl (Zofran Inj*) 4 mg IV Q4H PRN PRN Reason: NAUSEA Oxycodone HCl (Roxycodone Tab*) 10 mg PO Q4H PRN PRN Reason: Pain - Breakthrough Last Admin: 09/09/19 07:18 Dose: 10 mg Oxycodone/Acetaminophen (Percocet 5/325 Tab*) 2 tab PO Q4H PRN PRN Reason: PAIN - SEVERE Pantoprazole Sodium (Protonix Tab*) 40 mg PO BID [facility] Last Admin: 09/10/19 10:02 Dose: 40 mg Pharmacy Consult (Zosyn Per Pharmacy*) 1 note FOLLOW UP .ZOSYN PER PHARMACY [facility] Pharmacy Profile Note (Scopolamine Patch Remove*) 1 note PATCH OFF .AFTER 72 HOURS [facility] Polyethylene Glycol/Electrolytes (Miralax*) 17 gm PO DAILY PRN PRN Reason: Constipation Scopolamine (Transderm-Scop 1.5 Mg Patch*) 1 patch TRANSDERM Q72H [facility] Last Admin: 09/09/19 10:40 Dose: 1 patch Terazosin HCl (Hytrin Cap*) 10 mg PO BEDTIME [facility] Last Admin: 09/09/19 21:42 Dose: 10 mg Physical Exam: Constitutional: intubated, sedated, no diaphoresis Head: normocephalic, atraumatic Eyes: no pallor, no icterus ENT: moist mucous membranes Neck: soft, supple, no jvd CVS: normal rate, regular, no murmur Chest/Resp: bilateral air entry, no rhales, no wheeze, no rhonchi, no acc muscle use Abdomen/GI: soft, nontender, non distended, BS dmininshed, PD cath+ Ext/Msk: warm, pulses+, no edema Skin: intact, warm Neuro: sedated, limited exam due to sedation Psych: unable to assess due to sedation/intubation Labs: Laboratory Results - last 24 hr 09/09/19 09/09/19 09/09/19 04:23 05:59 07:52 WBC RBC Hgb Hct MCV MCH MCHC RDW Plt Count MPV Neut % (Auto) Lymph % (Auto) Luna % (Auto) Eos % (Auto) Baso % (Auto) Absolute Neuts (auto) Absolute Lymphs (auto) Absolute Monos (auto) Absolute Eos (auto) Absolute Basos (auto) Absolute Nucleated RBC Immature Gran % Neutrophils % Band Neutrophils % Lymphocytes % Monocytes % Nucleated RBC % Normal RBC Morphology Polychromasia Hypochromasia [place] Cells Schistocytes Patient Temperature ABG pH ABG pH (Temp Correct) ABG pCO2 ABG pCO2 (Temp Corrct ABG pO2 ABG pO2 (Temp Correct ABG HCO3 ABG O2 Saturation ABG Base Excess Respiration Rate O2 Delivery Device Ventilator Type Vent Mode FiO2 Inspiratory Time PEEP Pressure Support Pressure Control EPAP IPAP BiPAP Sodium Potassium Chloride Carbon Dioxide Anion Gap BUN Creatinine Est GFR ( Amer) Est GFR (Non-Af Amer) BUN/Creatinine Ratio Glucose POC Glucose (mg/dL) 233 H 216 H Glucose Meter Confirm Lactic Acid Calcium Ionized Calcium Phosphorus Magnesium Total Bilirubin AST ALT Alkaline Phosphatase Ammonia Total Protein Albumin Globulin Albumin/Globulin Ratio Blood Type B Positive Antibody Screen Negative Crossmatch See Detail Transfusion React Rpt Donor Unit # Post-Trans Blood Type Post-Trans DWAIN 09/09/19 09/09/19 09/09/19 08:17 12:30 12:30 WBC 18.1 H RBC 2.30 L Hgb 6.9 L Hct 21 L MCV 91 MCH 30 MCHC 33 RDW 18 H Plt Count 392 MPV 8.1 Neut % (Auto) 79.4 Lymph % (Auto) 10.3 Luna % (Auto) 10.1 Eos % (Auto) 0.0 Baso % (Auto) 0.2 Absolute Neuts (auto) 14.4 H Absolute Lymphs (auto) 1.9 Absolute Monos (auto) 1.8 H Absolute Eos (auto) 0.0 Absolute Basos (auto) 0.0 Absolute Nucleated RBC 0.0 Immature Gran % 9.0 Neutrophils % 74.0 Band Neutrophils % 9.0 H Lymphocytes % 11.0 Monocytes % 6.0 Nucleated RBC % 0.1 Normal RBC Morphology Not Reportable Polychromasia 2+ Hypochromasia 1+ [place] Cells 1+ Schistocytes 1+ Patient Temperature ABG pH ABG pH (Temp Correct) ABG pCO2 ABG pCO2 (Temp Corrct ABG pO2 ABG pO2 (Temp Correct ABG HCO3 ABG O2 Saturation ABG Base Excess Respiration Rate O2 Delivery Device Ventilator Type Vent Mode FiO2 Inspiratory Time PEEP Pressure Support Pressure Control EPAP IPAP BiPAP Sodium 130 L Potassium 3.2 L Chloride 92 L Carbon Dioxide 15 L Anion Gap 23 H BUN 37 H Creatinine 7.58 H Est GFR ( Amer) 6.4 Est GFR (Non-Af Amer) 5.3 BUN/Creatinine Ratio 4.9 L Glucose 270 H POC Glucose (mg/dL) 214 H Glucose Meter Confirm 270 H Lactic Acid Calcium 7.9 L Ionized Calcium Phosphorus 6.8 H Magnesium 2.0 Total Bilirubin 0.20 AST 34 ALT 17 Alkaline Phosphatase 77 Ammonia Total Protein 5.7 L Albumin 3.0 L Globulin 2.7 Albumin/Globulin Ratio 1.1 Blood Type Antibody Screen Crossmatch Transfusion React Rpt Donor Unit # Post-Trans Blood Type Post-Trans DWAIN 09/09/19 09/09/19 09/09/19 12:30 12:30 12:30 WBC RBC Hgb Hct MCV MCH MCHC RDW Plt Count MPV Neut % (Auto) Lymph % (Auto) Luna % (Auto) Eos % (Auto) Baso % (Auto) Absolute Neuts (auto) Absolute Lymphs (auto) Absolute Monos (auto) Absolute Eos (auto) Absolute Basos (auto) Absolute Nucleated RBC Immature Gran % Neutrophils % Band Neutrophils % Lymphocytes % Monocytes % Nucleated RBC % Normal RBC Morphology Polychromasia Hypochromasia [place] Cells Schistocytes Patient Temperature ABG pH ABG pH (Temp Correct) ABG pCO2 ABG pCO2 (Temp Corrct ABG pO2 ABG pO2 (Temp Correct ABG HCO3 ABG O2 Saturation ABG Base Excess Respiration Rate O2 Delivery Device Ventilator Type Vent Mode FiO2 Inspiratory Time PEEP Pressure Support Pressure Control EPAP IPAP BiPAP Sodium Potassium Chloride Carbon Dioxide Anion Gap BUN Creatinine Est GFR ( Amer) Est GFR (Non-Af Amer) BUN/Creatinine Ratio Glucose POC Glucose (mg/dL) Glucose Meter Confirm Lactic Acid 12.7 H* Calcium Ionized Calcium 1.07 L Phosphorus Magnesium Total Bilirubin AST ALT Alkaline Phosphatase Ammonia 90 H Total Protein Albumin Globulin Albumin/Globulin Ratio Blood Type Antibody Screen Crossmatch Transfusion React Rpt Donor Unit # Post-Trans Blood Type Post-Trans DWAIN 09/09/19 09/09/19 09/09/19 12:42 14:10 17:00 WBC RBC Hgb Hct MCV MCH MCHC RDW Plt Count MPV Neut % (Auto) Lymph % (Auto) Luna % (Auto) Eos % (Auto) Baso % (Auto) Absolute Neuts (auto) Absolute Lymphs (auto) Absolute Monos (auto) Absolute Eos (auto) Absolute Basos (auto) Absolute Nucleated RBC Immature Gran % Neutrophils % Band Neutrophils % Lymphocytes % Monocytes % Nucleated RBC % Normal RBC Morphology Polychromasia Hypochromasia [place] Cells Schistocytes Patient Temperature Not Reportable ABG pH 7.22 L ABG pH (Temp Correct) Not Reportable ABG pCO2 47 H ABG pCO2 (Temp Corrct Not Reportable ABG pO2 109 H ABG pO2 (Temp Correct Not Reportable ABG HCO3 18.3 L ABG O2 Saturation 99.5 H ABG Base Excess -8.5 L Respiration Rate 16 O2 Delivery Device vent Ventilator Type 400 Vent Mode Cmv FiO2 30 Inspiratory Time 1.0 PEEP 5 Pressure Support Not Reportable Pressure Control Not Reportable EPAP Not Reportable IPAP Not Reportable BiPAP Not Reportable Sodium 132 L Potassium 2.7 L* Chloride 95 L Carbon Dioxide 20 L Anion Gap 17 H BUN 33 H Creatinine 6.98 H Est GFR ( Amer) 7.1 Est GFR (Non-Af Amer) 5.9 BUN/Creatinine Ratio 4.7 L Glucose 319 H POC Glucose (mg/dL) 297 H Glucose Meter Confirm Lactic Acid Calcium 7.6 L Ionized Calcium Phosphorus Magnesium Total Bilirubin AST ALT Alkaline Phosphatase Ammonia Total Protein Albumin Globulin Albumin/Globulin Ratio Blood Type Antibody Screen Crossmatch Transfusion React Rpt Donor Unit # Post-Trans Blood Type Post-Trans DWAIN 09/09/19 09/09/19 09/09/19 17:00 17:00 17:18 WBC 11.3 H RBC 2.05 L Hgb 6.3 L* Hct 18 L MCV 87 MCH 31 MCHC 35 RDW 18 H Plt Count 275 MPV 7.9 Neut % (Auto) Lymph % (Auto) Luna % (Auto) Eos % (Auto) Baso % (Auto) Absolute Neuts (auto) Absolute Lymphs (auto) Absolute Monos (auto) Absolute Eos (auto) Absolute Basos (auto) Absolute Nucleated RBC Immature Gran % Neutrophils % Band Neutrophils % Lymphocytes % Monocytes % Nucleated RBC % Normal RBC Morphology Polychromasia Hypochromasia [place] Cells Schistocytes Patient Temperature ABG pH ABG pH (Temp Correct) ABG pCO2 ABG pCO2 (Temp Corrct ABG pO2 ABG pO2 (Temp Correct ABG HCO3 ABG O2 Saturation ABG Base Excess Respiration Rate O2 Delivery Device Ventilator Type Vent Mode FiO2 Inspiratory Time PEEP Pressure Support Pressure Control EPAP IPAP BiPAP Sodium Potassium Chloride Carbon Dioxide Anion Gap BUN Creatinine Est GFR ( Amer) Est GFR (Non-Af Amer) BUN/Creatinine Ratio Glucose POC Glucose (mg/dL) 361 H Glucose Meter Confirm Lactic Acid 5.2 H* Calcium Ionized Calcium Phosphorus Magnesium Total Bilirubin AST ALT Alkaline Phosphatase Ammonia Total Protein Albumin Globulin Albumin/Globulin Ratio Blood Type Antibody Screen Crossmatch Transfusion React Rpt Donor Unit # Post-Trans Blood Type Post-Trans DWAIN 09/09/19 09/10/19 09/10/19 22:22 00:27 02:25 WBC RBC Hgb Hct MCV MCH MCHC RDW Plt Count MPV Neut % (Auto) Lymph % (Auto) Luna % (Auto) Eos % (Auto) Baso % (Auto) Absolute Neuts (auto) Absolute Lymphs (auto) Absolute Monos (auto) Absolute Eos (auto) Absolute Basos (auto) Absolute Nucleated RBC Immature Gran % Neutrophils % Band Neutrophils % Lymphocytes % Monocytes % Nucleated RBC % Normal RBC Morphology Polychromasia Hypochromasia [place] Cells Schistocytes Patient Temperature ABG pH ABG pH (Temp Correct) ABG pCO2 ABG pCO2 (Temp Corrct ABG pO2 ABG pO2 (Temp Correct ABG HCO3 ABG O2 Saturation ABG Base Excess Respiration Rate O2 Delivery Device Ventilator Type Vent Mode FiO2 Inspiratory Time PEEP Pressure Support Pressure Control EPAP IPAP BiPAP Sodium Potassium Chloride Carbon Dioxide Anion Gap BUN Creatinine Est GFR ( Amer) Est GFR (Non-Af Amer) BUN/Creatinine Ratio Glucose POC Glucose (mg/dL) 186 H Glucose Meter Confirm Lactic Acid 3.5 H* Calcium Ionized Calcium Phosphorus Magnesium Total Bilirubin AST ALT Alkaline Phosphatase Ammonia Total Protein Albumin Globulin Albumin/Globulin Ratio Blood Type Antibody Screen Crossmatch Transfusion React Rpt Donor Unit # [id number] Post-Trans Blood Type B Positive Post-Trans DWAIN Negative 09/10/19 09/10/19 09/10/19 03:18 03:18 05:40 WBC 10.0 RBC 3.11 L Hgb 9.0 L Hct 26 L MCV 84 MCH 29 MCHC 35 RDW 17 H Plt Count 260 MPV 7.7 Neut % (Auto) 85.9 Lymph % (Auto) 5.7 Luna % (Auto) 8.2 Eos % (Auto) 0.1 Baso % (Auto) 0.1 Absolute Neuts (auto) 8.6 H Absolute Lymphs (auto) 0.6 L Absolute Monos (auto) 0.8 Absolute Eos (auto) 0.0 Absolute Basos (auto) 0.0 Absolute Nucleated RBC 0.0 Immature Gran % Neutrophils % Band Neutrophils % Lymphocytes % Monocytes % Nucleated RBC % 0.0 Normal RBC Morphology Polychromasia Hypochromasia [place] Cells Schistocytes Patient Temperature ABG pH ABG pH (Temp Correct) ABG pCO2 ABG pCO2 (Temp Corrct ABG pO2 ABG pO2 (Temp Correct ABG HCO3 ABG O2 Saturation ABG Base Excess Respiration Rate O2 Delivery Device Ventilator Type Vent Mode FiO2 Inspiratory Time PEEP Pressure Support Pressure Control EPAP IPAP BiPAP Sodium 133 L Potassium 2.7 L* Chloride 99 L Carbon Dioxide 22 Anion Gap 12 H BUN 35 H Creatinine 7.07 H Est GFR ( Amer) 7.0 Est GFR (Non-Af Amer) 5.8 BUN/Creatinine Ratio 5.0 L Glucose 88 POC Glucose (mg/dL) Glucose Meter Confirm Lactic Acid 2.2 H* Calcium 7.3 L Ionized Calcium Phosphorus Magnesium 2.0 Total Bilirubin AST ALT Alkaline Phosphatase Ammonia Total Protein Albumin Globulin Albumin/Globulin Ratio Blood Type Antibody Screen Crossmatch Transfusion React Rpt Donor Unit # Post-Trans Blood Type Post-Trans DWAIN 09/10/19 05:40 WBC 9.6 RBC 3.02 L Hgb 8.9 L Hct 25 L MCV 84 MCH 29 MCHC 35 RDW 17 H Plt Count 253 MPV 7.5 Neut % (Auto) Lymph % (Auto) Luna % (Auto) Eos % (Auto) Baso % (Auto) Absolute Neuts (auto) Absolute Lymphs (auto) Absolute Monos (auto) Absolute Eos (auto) Absolute Basos (auto) Absolute Nucleated RBC Immature Gran % Neutrophils % Band Neutrophils % Lymphocytes % Monocytes % Nucleated RBC % Normal RBC Morphology Polychromasia Hypochromasia [place] Cells Schistocytes Patient Temperature ABG pH ABG pH (Temp Correct) ABG pCO2 ABG pCO2 (Temp Corrct ABG pO2 ABG pO2 (Temp Correct ABG HCO3 ABG O2 Saturation ABG Base Excess Respiration Rate O2 Delivery Device Ventilator Type Vent Mode FiO2 Inspiratory Time PEEP Pressure Support Pressure Control EPAP IPAP BiPAP Sodium Potassium Chloride Carbon Dioxide Anion Gap BUN Creatinine Est GFR ( Amer) Est GFR (Non-Af Amer) BUN/Creatinine Ratio Glucose POC Glucose (mg/dL) Glucose Meter Confirm Lactic Acid Calcium Ionized Calcium Phosphorus Magnesium Total Bilirubin AST ALT Alkaline Phosphatase Ammonia Total Protein Albumin Globulin Albumin/Globulin Ratio Blood Type Antibody Screen Crossmatch Transfusion React Rpt Donor Unit # Post-Trans Blood Type Post-Trans DWAIN Imaging: cxr 09/09 - ett above dagoberto, no infiltrates cxr 09/10 - ett above dagoberto, diffuse hazziness on right side Assessment: 69y F w/pmxh of HTN, HLd, DM, ESRD on PD, h/o small bowel AVMs, Chronic anemia/OMAR, h/o hep C, h/o Right breast ca s/p lumpectomy; She presented to [facility] 09/08 for right totak knee arthroplasty, no significant events periop. She had complaints of constipation pre-op for 2-3 days, no n/v/abd pain. She was noted to be hg 6.6, not much blood loss intraop on documentation. Last hg 9.7 on 08/26. This morning she had nausea/vomitting. She was to be given PRBC for low hg but then she developed a mental status change, appeared to be tonic, nonresponsive, posturing and then tonic-clonic activity lasting 30-35 seconds, resolved and then she was awake but with a change in mental status, likely post ictal. She was transferred to the ICU. -Status epilepticus -encephalopathy -Acute respiratory arrest/hypoxic respiratory failure, intubated 09/09 -r/o aspiration -s/p Right TKA 09/08 -Acute blood loss anemia -Lactic acidosis from seizures/hypoxia -Ileus ESRD on PD HTN AVMs Plan: Neuro- -no further seizures noted; not on ativan -propofol held now, awake, following commands -will observe for next 1-2 hours; vent weaning in progress now -EEG done, no seizures noted yesterday while on sedation -keppra 500mg iv q12h -discontinued tramadol overnight, another potential cause of seizures -CT brain and CTA head/neck 09/09 - negative for occlusion or acute changes -neurochecks, daily sedation weaning -Delirium prec CVS- -BP stable -HR stable -HTN - cont norvasc/imdur/labetalol/cardizem/terazosin; hold for SBP <130 -anemia, hg better; s/p 4 prbc; no active bleeding noted anywhere; target hg >8 -PD today -Maintain MAP>65 Resp- -intubated, now on 30%, sat 100% -no distress, no secretions -plan for CPAP -CXR 09/10 - no new infiltrates/effusions/congestion -Wean Fio2 to keep sat>92% -Bronchodilators PRN, Aspiration prec, Pulmonary Toilet -VAP bundle ID- afebrile, wbc 18-10-8. reactive? 2/2 to ileus? post op? -nontoxic -LA may be elevated from hypoxia/seizure, resolved -started on zosyn yesterday; low suspicion , will limit IV abx to 72 hours GI- -NPO -NGT to suction low intermittent; no further gastric buildup of secretions/bile noted -will keep NGT in place after extubation for another 24 hours if needed -KUB 09/09 with some distended small bowel loops; no bowel movements overnight -abd soft otherwise -GI prophylaxis - ppi Renal- -ESRD; on PD ; cont PD today -replete K 40meq IV today -check bmp later today -LA likely from seizures/hypoxia; resolved now -strict I/O, replete to keep K>4, Mg>2 -hernández as indicated Heme- -acute blood loss, likely from surgery; s/p 4 prbc, some left neck infiltration+ ; hg 8.9 now -heparin proph to be started later today Endo- Maintain BG<200, insulin protocol as needed Musculsk- pressure ulcer prophylaxis. Bedrest. Wounds- ortho for right TKA wound care Nutrition- NPO DVT prophylaxis: SCD, start heparin sq bid GI prophylaxis: ppi Central Line: RIJ 09/09 TLC Arterial Line: no Hernández Cathetor:none Disposition: Patient requires Critical Care/ICU for respiratoyr failure/ intubated, seizures Patient Clinical Status: critical Code Status: full code Total Critical Care time is 55 minutes, excluding procedures/teaching Bar Jewell MD Test Manager (Electronically Signed)
[2019-09-10 12:40] LABS: Activated Partial Thrombo Time 32.8 seconds (26.0-38.0); INR 1.19 (0.82-1.09)
[2019-09-10 12:47] LABS: BUN/Creatinine Ratio 5.3 (8-20); Calcium 7.3 mg/dL (8.6-10.3); EGFR African American 7.3 (>60); Potassium 3.2 mmol/L (3.5-5.0)
[2019-09-10] MEDS: Heparin VIAL(*) 5000 UNITS/ML VIAL (FIVE THOUSAND) SUBCUT SCH ×2 (15:34→20:21)
[2019-09-10] MEDS: Isosorbide Mononitrate ER TAB* 30 MG PO SCH (18:14)
--- NOTE | 2019-09-10 19:27 | PN ---
NEUROLOGICAL FOLLOWUP: DATE OF VISIT: 09/10/19 PATIENT OF: Dr. Jewell. HISTORY: This is a 69-year-old woman who had 2 seizures yesterday, 1 day following knee surgery. She was intubated overnight on propofol this has been removed and she was extubated shortly before I saw her and the extubation went without any problem. MEDICATIONS: She remains on: 1. Keppra 500 mg twice a day. 2. Ativan as needed. 3. Labetalol 300 twice a day. 4. Insulin 8 units q.a.m. on the sliding scale. 5. Diltiazem 240 q.a.m. 6. Flexeril 10 mg p.r.n. 7. Clonidine 0.3 t.i.d. 8. Norvasc 10 mg q.a.m. PHYSICAL EXAMINATION: Temperature 97.5, pulse 69, respirations 15, blood pressure 128/72. She is alert, knew her name and her age and spoke in short phrases. She followed commands and moved all extremities with power at least 5-/5. 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 Chest: Clear. Cardiovascular: Regular rate and rhythm. DIAGNOSTIC STUDIES/LAB DATA: CT scan showed no acute findings and was reviewed and did show some hyperdensity suggestive of small vessel ischemic disease. Her CTA showed no significant stenosis, or clot, or other abnormalities. Labs today showed a white count of 9.6, hematocrit of 25. INR 1.19. Sodium of 132, BUN of 36, creatinine 6.8, calcium of 7.3. The specific cause of the seizures one day postsurgery is unclear whether this has provoked seizures or not. It would be reasonable to check an MRI scan on Thursday. It would also be reasonable to stop the tramadol for now. We are going to continue the Keppra and once we get further information, we may need to reassess. Thank you for sharing her case. [id number]/[facility] #: [id number] [facility] SHOREGabriela
[2019-09-10] MEDS: Terazosin CAP* 5 MG PO SCH (20:21)
[2019-09-11] MEDS: Acetaminophen ADULT LIQ* 650 MG/20.3 ML UDC PO SCH ×4 (00:25→21:09)
[2019-09-11] MEDS: Insulin LISPRO* 1 UNITS UNIT SUBCUT SCH ×4 (01:00→18:34)
[2019-09-11] MEDS ORDERED: D5NS 0.9% 1000 ML BAG* 1,000 ML IV SCH (02:00)
[2019-09-11 05:55] LABS: Hematocrit 27 % (35-47); Hemoglobin 9.1 g/dL (12.0-16.0); Mean Corpuscular HGB Conc 34 g/dL (31-36); Mean Corpuscular Hemoglobin 29 pg (27-31); Mean Corpuscular Volume 85 fL (80-97); Platelet Count 238 10^3/uL (150-450); Red Blood Count 3.15 10^6 /uL (3.70-4.87); Red Cell Distribution Width 18 % (10-15); White Blood Count 10.9 10^3/uL (3.5-10.8)
[2019-09-11 06:14] LABS: BUN/Creatinine Ratio 5.5 (8-20); EGFR African American 7.7 (>60); EGFR Non-African American 6.4 (>60); Magnesium 2.2 mg/dL (1.9-2.7); Potassium 3.7 mmol/L (3.5-5.0)
[2019-09-11] MEDS: Mupirocin 2% OINT* TUBE TOPICAL SCH (08:45)
[2019-09-11] MEDS: levETIRAcetam 500 MG IVPREMIX* 500 MG/100 ML BAG IV SCH (08:45)
[2019-09-11] MEDS: ZOSYN 3.375 GM Q12H per EXTENDED INFUSION IVPB SCH ×4 (09:24→20:49)
[2019-09-11] MEDS: cloNIDine TAB* 0.1 MG PO SCH ×3 (09:25→21:09)
[2019-09-11] MEDS: Diltiazem CD CAP* 240 MG PO SCH (09:25)
[2019-09-11] MEDS: Magnesium Hydroxide LIQ* 30 ML UDC PO SCH ×2 (09:25→21:09)
[2019-09-11] MEDS: Pantoprazole TAB * 40 MG TAB PO SCH ×2 (09:25→21:09)
[2019-09-11] MEDS: Heparin VIAL(*) 5000 UNITS/ML VIAL (FIVE THOUSAND) SUBCUT SCH ×2 (09:26→21:08)
[2019-09-11] MEDS: Vitamin THERAPEUTIC TAB PO SCH (09:26)
[2019-09-11] MEDS: Docusate CAP* 100 MG PO SCH ×2 (09:26→21:09)
[2019-09-11] MEDS: Calcitriol CAP* 0.25 MCG PO SCH (09:26)
[2019-09-11] MEDS: amLODIPine TAB* 5 MG PO SCH (09:26)
[2019-09-11] MEDS: Labetalol TAB* 300 MG PO SCH ×2 (09:26→21:09)
[2019-09-11] MEDS ORDERED: Senna TAB 8.6 mg* TAB PO PRN (10:44)
--- NOTE | 2019-09-11 11:26 | PN ---
Progress Note - Progress Note Date of Service: 09/11/19 Note: Progress Note -- Critical Care 24 hour events -extubated yesterday 09/10 -awake, alert, on NC, no distress, speaking -follows commands, denies any cp/sob -no seizures further noted -on PD -afebrile, BP and HR stable -blood glucose 80 this morning; starting po diet today, lantus and ISS held for hypoglycemia ROS: negative except for pertinent positives mentioned above Tele: NSR Vitals: Vital Signs Temp 98.6 F 09/11/19 07:17 Pulse 76 09/11/19 10:00 Resp 15 09/11/19 10:00 BP 147/78 09/11/19 10:00 Pulse Ox 97 09/11/19 10:00 Intake & Output 09/10/19 09/11/19 09/11/19 18:59 06:59 18:59 Intake Total 1823 1118 Output Total 0 0 Balance 1823 1118 0 Weight 82.1 kg Intake: IV Fluids 1303 1008 D5NS 185 LR 1203 734 NS 100 89 IVPB 327 110 K 217 Zosyn 110 110 Medicated IV 193 Keppra 105 Propofol 88 Output: Urine 0 0 Other: Estimated Void Large O2/Vent: NC Infusions: none Current Medications: Acetaminophen (Tylenol Adult Liq*) 975 mg PO Q8HR [facility] Last Admin: 09/11/19 05:34 Dose: 975 mg Amlodipine Besylate (Norvasc Tab*) 10 mg PO [facility] Last Admin: 09/11/19 09:26 Dose: 10 mg Bisacodyl (Dulcolax Supp*) 10 mg PA DAILY PRN PRN Reason: CONSTIPATION Calcitriol (Rocaltrol Cap*) 0.25 mcg PO QAM [facility] Last Admin: 09/11/19 09:26 Dose: Not Given Clonidine HCl (Catapres Tab*) 0.3 mg PO TID [facility] Last Admin: 09/11/19 09:25 Dose: 0.3 mg Cyclobenzaprine HCl (Flexeril Tab*) 10 mg PO Q6H PRN PRN Reason: SPASMS Dextrose (D50w Syringe 50 Ml*) 12.5 gm IV PUSH .FOR FS < 60 - SS PRN PRN Reason: FS < 60 Diltiazem HCl (Cardizem Cd Cap*) 240 mg PO QAM [facility] Last Admin: 09/11/19 09:25 Dose: 240 mg Diphenhydramine HCl (Benadryl Iv*) 25 mg IV Q6H PRN PRN Reason: PRURITIS Diphenhydramine HCl (Benadryl Liq*) 12.5 mg PO Q6H PRN PRN Reason: PRURITIS Diphenhydramine HCl (Benadryl Po*) 25 mg PO Q6H PRN PRN Reason: PRURITIS Docusate Sodium (Colace Cap*) 100 mg PO BID [facility] Last Admin: 09/11/19 09:26 Dose: Not Given Heparin Sodium (Porcine) (Heparin Vial(*)) 5,000 units SUBCUT Q12HR [facility] Last Admin: 09/11/19 09:26 Dose: 5,000 units Piperacillin Sod/Tazobactam (Sod 3.375 gm/ Sodium Chloride) 100 mls @ 25 mls/ hr IVPB Q12H [facility] Stop: 09/11/19 23:59 Last Admin: 09/11/19 09:24 Dose: 25 mls/hr Levetiracetam (Keppra Iv Premix*) 500 mg in 100 mls @ 400 mls/hr IV DAILY [facility] Dextrose/Sodium Chloride (D5ns 0.9% 1000 Ml Bag*) 1,000 mls @ 50 mls/hr IV PER RATE [facility] Last Admin: 09/11/19 02:16 Dose: 50 mls/hr Insulin Glargine (Lantus(*)) 8 units SUBCUT QAM [facility] Last Admin: 09/10/19 09:40 Dose: Not Given Insulin Human Lispro (Humalog*) 0 units SUBCUT Q6H [facility]; Protocol Last Admin: 09/11/19 07:47 Dose: Not Given Isosorbide Mononitrate (Imdur Er Tab*) 30 mg PO QPM [facility] Labetalol HCl (Trandate Tab*) 300 mg PO BID [facility] Last Admin: 09/11/19 09:26 Dose: 300 mg Lactulose (Lactulose*) 30 ml PO BID PRN PRN Reason: CONSTIPATION Lorazepam (Ativan Tab(*)) 0.5 mg PO BID PRN PRN Reason: ANXIETY Lorazepam (Ativan Inj*) 1 mg IV PUSH Q6H PRN PRN Reason: seizure Magnesium Hydroxide (Milk Of Magnesia Liq*) 30 ml PO BID [facility] Last Admin: 09/11/19 09:25 Dose: 30 ml Magnesium Hydroxide (Milk Of Magnesia Liq*) 30 ml PO Q6H PRN PRN Reason: CONSTIPATION Miscellaneous (Ativan Pyxis [place]) 1 ea N/A .ATIVAN IV ZURITA PRN PRN Reason: PYXIS ZURITA Miscellaneous (Ativan Pyxis [place]) 1 ea N/A .ATIVAN IV ZURITA PRN PRN Reason: PYXIS ZURITA Morphine Sulfate (Morphine Inj (Syringe))*) 2 mg IV Q4H PRN PRN Reason: Pain - Unrelieved Last Admin: 09/10/19 11:16 Dose: 2 mg Multivitamins (Theragran Tab*) 1 tab PO DAILY [facility] Last Admin: 09/11/19 09:26 Dose: 1 tab Mupirocin (Bactroban 2 % Oint*) 1 applic TOPICAL DAILY@1000 [facility] Last Admin: 09/10/19 10:51 Dose: 1 applic Ondansetron HCl (Zofran Odt Tab*) 4 mg PO Q6H PRN PRN Reason: NAUSEA Last Admin: 09/09/19 09:27 Dose: 4 mg Ondansetron HCl (Zofran Inj*) 4 mg IV Q4H PRN PRN Reason: NAUSEA Oxycodone HCl (Roxycodone Tab*) 10 mg PO Q4H PRN PRN Reason: Pain - Breakthrough Last Admin: 09/09/19 07:18 Dose: 10 mg Oxycodone/Acetaminophen (Percocet 5/325 Tab*) 2 tab PO Q4H PRN PRN Reason: PAIN - SEVERE Pantoprazole Sodium (Protonix Tab*) 40 mg PO BID [facility] Last Admin: 09/11/19 09:25 Dose: 40 mg Pharmacy Consult (Zosyn Per Pharmacy*) 1 note FOLLOW UP .ZOSYN PER PHARMACY [facility] Pharmacy Profile Note (Scopolamine Patch Remove*) 1 note PATCH OFF .AFTER 72 HOURS [facility] Polyethylene Glycol/Electrolytes (Miralax*) 17 gm PO DAILY PRN PRN Reason: Constipation Scopolamine (Transderm-Scop 1.5 Mg Patch*) 1 patch TRANSDERM Q72H [facility] Last Admin: 09/09/19 10:40 Dose: 1 patch Senna (Senokot 8.6 Mg Tab*) 1 tab PO DAILY PRN PRN Reason: CONSTIPATION Terazosin HCl (Hytrin Cap*) 10 mg PO BEDTIME [facility] Last Admin: 09/10/19 20:21 Dose: 10 mg Physical Exam: Constitutional: awake, alert, no distress, no diaphoresis Head: normocephalic, atraumatic Eyes: no pallor, no icterus ENT: moist mucous membranes Neck: soft, supple, no jvd CVS: normal rate, regular, no murmur Chest/Resp: bilateral air entry, no rhales, no wheeze, no rhonchi, no acc muscle use Abdomen/GI: soft, nontender, non distended, BS dmininshed, PD cath+ Ext/Msk: warm, pulses+, no edema Skin: intact, warm Neuro: awake, alert, oriented x3, moves all ext, no focal deficit appreciated Psych: normal affect Labs: Laboratory Results - last 24 hr 09/10/19 09/10/19 09/10/19 12:20 12:20 17:33 WBC RBC Hgb Hct MCV MCH MCHC RDW Plt Count MPV INR (Anticoag Therapy) 1.19 H APTT 32.8 Sodium 132 L Potassium 3.2 L Chloride 98 L Carbon Dioxide 23 Anion Gap 11 BUN 36 H Creatinine 6.80 H Est GFR ( Amer) 7.3 Est GFR (Non-Af Amer) 6.0 BUN/Creatinine Ratio 5.3 L Glucose 136 H POC Glucose (mg/dL) 182 H Calcium 7.3 L Magnesium 09/11/19 09/11/19 09/11/19 00:38 05:40 05:40 WBC 10.9 H RBC 3.15 L Hgb 9.1 L Hct 27 L MCV 85 MCH 29 MCHC 34 RDW 18 H Plt Count 238 MPV 8.0 INR (Anticoag Therapy) APTT Sodium 133 L Potassium 3.7 Chloride 99 L Carbon Dioxide 24 Anion Gap 10 BUN 36 H Creatinine 6.49 H Est GFR ( Amer) 7.7 Est GFR (Non-Af Amer) 6.4 BUN/Creatinine Ratio 5.5 L Glucose 84 POC Glucose (mg/dL) 74 Calcium 7.0 L Magnesium 2.2 Imaging: cxr 09/09 - ett above dagoberto, no infiltrates cxr 09/10 - ett above dagoberto, diffuse hazziness on right side Assessment: 69y F w/pmxh of HTN, HLd, DM, ESRD on PD, h/o small bowel AVMs, Chronic anemia/OMAR, h/o hep C, h/o Right breast ca s/p lumpectomy; She presented to [facility] 09/08 for right totak knee arthroplasty, no significant events periop. She had complaints of constipation pre-op for 2-3 days, no n/v/abd pain. She was noted to be hg 6.6, not much blood loss intraop on documentation. Last hg 9.7 on 08/26. This morning she had nausea/vomitting. She was to be given PRBC for low hg but then she developed a mental status change, appeared to be tonic, nonresponsive, posturing and then tonic-clonic activity lasting 30-35 seconds, resolved and then she was awake but with a change in mental status, likely post ictal. She was transferred to the ICU. -Status epilepticus -encephalopathy -Acute respiratory arrest/hypoxic respiratory failure, intubated 09/09 -r/o aspiration -s/p Right TKA 09/08 -Acute blood loss anemia -Lactic acidosis from seizures/hypoxia -Ileus -hypoglycemia ESRD on PD HTN AVMs Plan: Neuro- -no further seizures noted -off sedation -was sleepy yesterday all day; i decreased keppra to 500mg IV dialy as possible etiology of sedation also -she is more awake today -EEG done, no seizures noted yesterday while on sedation -discontinued tramadol as another source of seizures -CT brain and CTA head/neck 09/09 - negative for occlusion or acute changes -neurochecks -Delirium prec CVS- -BP stable -HR stable -HTN - cont norvasc/clonidine/imdur/labetalol/cardizem/terazosin; hold for SBP < 130 -anemia, hg stable; s/p 4 prbc; no active bleeding noted anywhere; target hg >8 -PD today -on d5ns for hypoglycemia -Maintain MAP>65 Resp- -on NC, no distress -CXR 09/10 - no new infiltrates/effusions/congestion -Wean Fio2 to keep sat>92% -Bronchodilators PRN, Aspiration prec ID- afebrile, wbc 18-10-8. reactive? 2/2 to ileus? post op? -nontoxic -LA may be elevated from hypoxia/seizure, resolved -cont zosyn bid for 72 hours total, stop 09/12 evening; no clear sepsis, aspiration coverage but improved and wbc normal, no fevers GI- - start renal diet -ngt removed this morning -no further vomitting or ngt outputs -start stool softeners -KUB 09/09 with some distended small bowel loops; no bowel movements overnight -GI prophylaxis - ppi Renal- -ESRD; on PD ; cont PD today -LA likely from seizures/hypoxia; resolved now -strict I/O, replete to keep K>4, Mg>2 -hernández as indicated Heme- -acute blood loss, likely from surgery; s/p 4 prbc, some left neck infiltration+ ; hg 8-9s -heparin proph Endo- Maintain BG<200, insulin protocol as needed; holding insulin; hypoglycemia +; cont d5ns, start oral diet; wean down d5ns as tolerated Musculsk- pressure ulcer prophylaxis. oob to chair/ambulate Wounds- ortho for right TKA wound care Nutrition- renal diet DVT prophylaxis: SCD, heparin sq bid GI prophylaxis: ppi Central Line: RIJ 09/09 TLC Arterial Line: no Hernández Cathetor:none Disposition: Patient requires Critical Care/ICU for seizures, and hypoglycemia Patient Clinical Status: stable Code Status: full code Bar Jewell MD Incubator Operator (Electronically Signed)
--- NOTE | 2019-09-11 12:02 | PN ---
Progress Note - Progress Note Date of Service: 09/11/19 Note: Nephrology f/u note Performed by Dr. Kathy Doyle, [facility] Nephrology 09/11/2019 69 YO AAF s/p Right Total Knee Arthroplasty Intubated Thursday and extubated Thursday s/p loss of consciousness, s/p tonic clonic seizure, never had SZ before, now on Levetiracetam s/p neurology evaluation and normal CTA Brain, MR Brain tomorrow?! per neurology note Had severe Anemia, 2/2 small intestinal AVM s/p 2 Units PRBCs. Last Hb 9.09/19 ESRD on CCPD, has been continued while inpatient with 1.5% Dextrose. Today she is awake and alert, doesn't recall what happened. PMH: ESRD on PD HTN Anemia as above DM2 HCV Breast CA Dyslipidemia Small bowel AVM. Hospital Meds: Acetaminophen Amlodipine Bisacodyl Calcitriol Clonidine Cyclobenzaprine Dextrose Diltiazem Diphenhydramine Docusate Heparin Piperacillin/Tazobactam Levetiracetam Dextrose/Sodium 50 mls/hr Insulin Glargine Insulin Human Lispro Isosorbide Mononitrate Labetalol Lactulose Lorazepam Magnesium Morphine Sulfate Multivitamins Mupirocin Ondansetron Oxycodone/Acetaminophen Pantoprazole Polyethylene Glycol Scopolamine Senna Terazosin Objective: Temp Pulse Resp BP Pulse Ox 98.5 F 75 19 142/81 95 09/11/19 11:38 09/11/19 12:00 09/11/19 12:00 09/11/19 12:00 09/11/19 12:00 10 Point multi system exam: Constitutional Alert Oriented x 2. Didn't remember the day HEENT: No Conjunctivitis Abdomen Soft Abdomen No Ascites Heart: NSR, Trace LE Edema, No murmur Lungs: Clear to auscultation Extremities: No edema, no rash Skin no rash Neurology No deficit. CN intact Laboratory Reviewed Sodium 133 mmol/L (135-145) L 09/11/19 05:40 Potassium 3.7 mmol/L (3.5-5.0) 09/11/19 05:40 BUN 36 mg/dL (6-24) H 09/11/19 05:40 Creatinine 6.49 mg/dL (0.51-0.95) H 09/11/19 05:40 Hemoglobin A1c 8.4 % (4.0-5.6) H 09/09/19 06:17 Calcium 7.0 mg/dL (8.6-10.3) L 09/11/19 05:40 Magnesium 2.2 mg/dL (1.9-2.7) 09/11/19 05:40 AST 34 U/L (13-39) 09/09/19 12:30 ALT 17 U/L (7-52) 09/09/19 12:30 Assessment and Plan: Continue PD Seizure likely 2/2 to a medication that lowered seizure threshold in a dialysis patient CCPD, 4 exchanges, 2200 cc, 1.5% both bags Electrolytes Ok BP Ok No edema, will try to avoid excessive UF or dropping BP PD nurse will setup PD tonight
[2019-09-11] MEDS: Insulin GLARGINE(*) 1 UNITS UNIT SUBCUT SCH (13:14)
--- NOTE | 2019-09-11 15:51 | PN ---
Progress Note - Progress Note Date of Service: 09/11/19 SOAP: Subjective: Pt seen and examined at bedside. Pt more awake today. Extubated. States does not remember what happened. Vital Signs: Temp Pulse Resp BP Pulse Ox 99.3 F 74 21 153/65 94 09/11/19 15:38 09/11/19 14:00 09/11/19 14:00 09/11/19 14:00 09/11/19 14:00 Laboratory Last Values WBC 10.9 10^3/uL (3.5-10.8) H 09/11/19 05:40 RBC 3.15 10^6 /uL (3.70-4.87) L 09/11/19 05:40 Hgb 9.1 g/dL (12.0-16.0) L 09/11/19 05:40 Hct 27 % (35-47) L 09/11/19 05:40 MCV 85 fL (80-97) 09/11/19 05:40 MCH 29 pg (27-31) 09/11/19 05:40 MCHC 34 g/dL (31-36) 09/11/19 05:40 RDW 18 % (10-15) H 09/11/19 05:40 Plt Count 238 10^3/uL (150-450) 09/11/19 05:40 MPV 8.0 fL (7.4-10.4) 09/11/19 05:40 Neut % (Auto) 85.9 % 09/10/19 03:18 Lymph % (Auto) 5.7 % 09/10/19 03:18 [place] % (Auto) 8.2 % 09/10/19 03:18 Eos % (Auto) 0.1 % 09/10/19 03:18 Baso % (Auto) 0.1 % 09/10/19 03:18 Absolute Neuts (auto) 8.6 10^3/ul (1.5-7.7) H 09/10/19 03:18 Absolute Lymphs (auto) 0.6 10^3/ul (1.0-4.8) L 09/10/19 03:18 Absolute Monos (auto) 0.8 10^3/ul (0-0.8) 09/10/19 03:18 Absolute Eos (auto) 0.0 10^3/ul (0-0.6) 09/10/19 03:18 Absolute Basos (auto) 0.0 10^3/ul (0-0.2) 09/10/19 03:18 Absolute Nucleated RBC 0.0 10^3/ul 09/10/19 03:18 Immature Gran % 9.0 % (0-9) 09/09/19 12:30 Neutrophils % 74.0 % 09/09/19 12:30 Band Neutrophils % 9.0 % (0-8) H 09/09/19 12:30 Lymphocytes % 11.0 % 09/09/19 12:30 Monocytes % 6.0 % 09/09/19 12:30 Nucleated RBC % 0.0 09/10/19 03:18 Normal RBC Morphology Not Reportable 09/09/19 12:30 Polychromasia 2+ 09/09/19 12:30 Hypochromasia 1+ 09/09/19 12:30 Bazine Cells 1+ 09/09/19 12:30 Schistocytes 1+ 09/09/19 12:30 INR (Anticoag Therapy) 1.19 (0.82-1.09) H 09/10/19 12:20 APTT 32.8 seconds (26.0-38.0) 09/10/19 12:20 Patient Temperature Not Reportable 09/09/19 14:10 ABG pH 7.22 (7.35-7.45) L 09/09/19 14:10 ABG pH (Temp Correct) Not Reportable 09/09/19 14:10 ABG pCO2 47 mmHg (35-45) H 09/09/19 14:10 ABG pCO2 (Temp Corrct Not Reportable 09/09/19 14:10 ABG pO2 109 mmHg (80-100) H 09/09/19 14:10 ABG pO2 (Temp Correct Not Reportable 09/09/19 14:10 ABG HCO3 18.3 mmol/L (19-31) L 09/09/19 14:10 ABG O2 Saturation 99.5 % (94.0-98.0) H 09/09/19 14:10 ABG Base Excess -8.5 mmol/L (-2.0-2.0) L 09/09/19 14:10 Respiration Rate 16 09/09/19 14:10 O2 Delivery Device vent 09/09/19 14:10 Ventilator Type 400 09/09/19 14:10 Vent Mode Cmv 09/09/19 14:10 FiO2 30 09/09/19 14:10 Inspiratory Time 1.0 09/09/19 14:10 PEEP 5 09/09/19 14:10 Pressure Support Not Reportable 09/09/19 14:10 Pressure Control Not Reportable 09/09/19 14:10 EPAP Not Reportable 09/09/19 14:10 IPAP Not Reportable 09/09/19 14:10 BiPAP Not Reportable 09/09/19 14:10 Sodium 133 mmol/L (135-145) L 09/11/19 05:40 Potassium 3.7 mmol/L (3.5-5.0) 09/11/19 05:40 Chloride 99 mmol/L (101-111) L 09/11/19 05:40 Carbon Dioxide 24 mmol/L (22-32) 09/11/19 05:40 Anion Gap 10 mmol/L (2-11) 09/11/19 05:40 BUN 36 mg/dL (6-24) H 09/11/19 05:40 Creatinine 6.49 mg/dL (0.51-0.95) H 09/11/19 05:40 Est GFR ( Amer) 7.7 (>60) 09/11/19 05:40 Est GFR (Non-Af Amer) 6.4 (>60) 09/11/19 05:40 BUN/Creatinine Ratio 5.5 (8-20) L 09/11/19 05:40 Glucose 84 mg/dL (70-100) 09/11/19 05:40 POC Glucose (mg/dL) 104 mg/dL (70-100) H 09/11/19 13:13 Glucose Meter Confirm 270 mg/dL (70-100) H 09/09/19 12:30 Hemoglobin A1c 8.4 % (4.0-5.6) H 09/09/19 06:17 Lactic Acid 2.2 mmol/L (0.5-2.0) H* 09/10/19 03:18 Calcium 7.0 mg/dL (8.6-10.3) L 09/11/19 05:40 Ionized Calcium 1.07 mmol/L (1.16-1.32) L 09/09/19 12:30 Phosphorus 6.8 mg/dL (2.5-5.0) H 09/09/19 12:30 Magnesium 2.2 mg/dL (1.9-2.7) 09/11/19 05:40 Total Bilirubin 0.20 mg/dL (0.2-1.0) 09/09/19 12:30 AST 34 U/L (13-39) 09/09/19 12:30 ALT 17 U/L (7-52) 09/09/19 12:30 Alkaline Phosphatase 77 U/L (34-104) 09/09/19 12:30 Ammonia 90 mcmol/L (16-53) H 09/09/19 12:30 Total Protein 5.7 g/dL (6.4-8.9) L 09/09/19 12:30 Albumin 3.0 g/dL (3.2-5.2) L 09/09/19 12:30 Globulin 2.7 g/dL (2-4) 09/09/19 12:30 Albumin/Globulin Ratio 1.1 (1-3) 09/09/19 12:30 Blood Type B Positive 09/09/19 07:52 Antibody Screen Negative 09/09/19 07:52 Crossmatch See Detail 09/09/19 07:52 Transfusion React Rpt 09/10/19 02:25 Donor Unit # [id number] 09/10/19 02:25 Post-Trans Blood Type B Positive 09/10/19 02:25 Post-Trans DWAIN Negative 09/10/19 02:25 Objective: A&O x3, NAD Dressing changed, Incision C/D/I, Calves soft and nontender, No edema, NVI distally Assessment: 69 yo female s/p right TKA POD #3 Plan: PT/OT WBAT Pain control Peritoneal dialysis Daily Appreciate ICU team
--- NOTE | 2019-09-11 16:00 | PN ---
NEUROLOGICAL FOLLOWUP: DATE OF SERVICE: 09/11/19 PATIENT OF: Dr. Jewell. HISTORY: This is a neurological followup on this 69-year-old woman who had 2 seizures 1 day postop knee surgery. She has done well without further seizures. She has no specific complaints at this time. She has never had prior seizures. She is tolerating the Keppra well. Dr. Jewell decreased the dose because she was sleepy, and she is awake and without any altered mental status at this point. MEDICATIONS: Include: 1. Keppra 500 mg a day. 2. Norvasc 10 mg q.a.m. 3. Dulcolax 10 mg p.r. p.r.n. constipation. 4. Calcitriol 0.25 mcg daily. 5. Clonidine 0.3 t.i.d. 6. Flexeril 10 mg p.r.n. spasms. 7. Cardizem 240 q.a.m. 8. Colace 100 mg b.i.d. 9. Insulin. 10. Isosorbide 30 mg q.p.m. 11. Labetalol 300 mg b.i.d. 12. Lactulose 30 mL b.i.d. p.r.n. constipation. 13. Ativan 0.5 b.i.d. p.r.n. anxiety, 1 mg p.r.n. seizures. 14. Morphine 2 mg IV q.4 hours p.r.n. pain. 15. Piperacillin/tazobactam q.12 hours. 16. Hytrin 10 mg at bedtime. PHYSICAL EXAMINATION: Temperature 98.5, pulse 75, respirations 19, blood pressure 142/81. She was alert and oriented with normal speech and comprehension. Cranial nerves II through XII were intact other than her chronic disconjugate gaze. She moves all extremities with power 5/5. Chest: Clear. Cardiovascular: Regular rate and rhythm. Abdomen was soft. IMPRESSION AND PLAN: I discussed with Kristal that she had 2 seizures 1 day postop. It is unclear what if anything provoked the seizures at this time. She is sick and has multiple medical risks, but the exact trigger for the seizure is unclear. She drives at home and she knows that she cannot drive until we report this to the DMV. She is concerned about having further seizures. We will keep her on the Keppra for now. We will need levels in 5 to 7 days. Since the Keppra is metabolized through the kidneys, we will have to adjust her dose and once a day 500 mg dose is reasonable now especially since she was sedated on 500 twice a day. Thank you for sharing her care. [id number]/[facility] #: [id number] MTDD
[2019-09-11] MEDS: Isosorbide Mononitrate ER TAB* 30 MG PO SCH (18:34)
[2019-09-11] MEDS: Terazosin CAP* 5 MG PO SCH (21:09)
[2019-09-12] MEDS: Insulin LISPRO* 1 UNITS UNIT SUBCUT SCH ×4 (00:57→18:07)
[2019-09-12] MEDS: Acetaminophen ADULT LIQ* 650 MG/20.3 ML UDC PO SCH ×2 (05:42→16:35)
[2019-09-12 05:54] LABS: Hematocrit 26 % (35-47); Hemoglobin 8.6 g/dL (12.0-16.0); Mean Corpuscular HGB Conc 33 g/dL (31-36); Mean Corpuscular Hemoglobin 29 pg (27-31); Mean Corpuscular Volume 86 fL (80-97); Mean Platelet Volume 7.5 fL (7.4-10.4); Platelet Count 243 10^3/uL (150-450); Red Cell Distribution Width 18 % (10-15); White Blood Count 10.9 10^3/uL (3.5-10.8)
[2019-09-12 06:10] LABS: BUN/Creatinine Ratio 5.9 (8-20); Calcium 6.9 mg/dL (8.6-10.3); EGFR Non-African American 6.6 (>60); Magnesium 2.5 mg/dL (1.9-2.7); Potassium 3.3 mmol/L (3.5-5.0)
[2019-09-12] MEDS ORDERED: Potassium Chlor TAB* 20 MEQ TAB.ER PO ONE (06:15)
[2019-09-12] MEDS: Morphine INJ* 2 MG/ML 1 ML SYRINGE (TWO MG - NEW SYRINGE VERSION) IV PRN (06:53)
[2019-09-12] MEDS: ZOSYN 3.375 GM Q12H per EXTENDED INFUSION IVPB SCH ×4 (07:50→20:17)
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
--- NOTE | 2019-09-12 09:52 | PN ---
Progress Note - Progress Note Date of Service: 09/12/19 SOAP: Subjective: []Pt seen and examined at bedside. She is sitting up in bed eating breakfast. Denies any chest pain, shortness of breath, dizziness or nausea. She has no memory of having her knee replaced, though remembers events leading up to the surgery. No memory of seizures. Seen by neurology today with MRI pending, no obvious cause of seizures. Reports she does not take her insulin at home unless her blood sugar is above 300. Objective: []Gen: NAD, alert and oriented to person, place and time. RLE: Right knee dressing changed, incision CDI, thigh soft, DF/PF intact, DP2+, sensation intact to light touch distally. Calves supple and nontender without erythema, edema or palpable cords Assessment: 69 yo female s/p right TKA POD #4 Plan: PT/OT WBAT Peritoneal dialysis Daily Appreciate ICU team On heparin DVT prophy. Please ensure use of SCDs as well Plans for transfer back to [facility] today on hospitalist service though ortho will continue to follow Vital Signs Temp 98.3 F 09/12/19 05:47 Pulse 63 09/12/19 08:00 Resp 16 09/12/19 08:00 BP 132/63 09/12/19 08:00 Pulse Ox 96 09/12/19 08:00 Intake & Output 09/11/19 09/12/19 09/12/19 18:59 06:59 18:59 Intake Total 1209 249 Output Total 0 0 Balance 1209 249 Weight 175 lb 4.8 oz Intake: IV Fluids 574 139 D5NS 538 59 NS 36 80 IVPB 220 110 Keppra 110 Zosyn 110 110 Oral 415 Output: Urine 0 0 Other: Date of Last Bowel t Movement # Bowel Movements 1 Estimated Stool Amount Large Laboratory Last Values WBC 10.9 10^3/uL (3.5-10.8) H 09/12/19 05:40 RBC 3.00 10^6 /uL (3.70-4.87) L 09/12/19 05:40 Hgb 8.6 g/dL (12.0-16.0) L 09/12/19 05:40 Hct 26 % (35-47) L 09/12/19 05:40 MCV 86 fL (80-97) 09/12/19 05:40 MCH 29 pg (27-31) 09/12/19 05:40 MCHC 33 g/dL (31-36) 09/12/19 05:40 RDW 18 % (10-15) H 09/12/19 05:40 Plt Count 243 10^3/uL (150-450) 09/12/19 05:40 MPV 7.5 fL (7.4-10.4) 09/12/19 05:40 Neut % (Auto) 85.9 % 09/10/19 03:18 Lymph % (Auto) 5.7 % 09/10/19 03:18 [place] % (Auto) 8.2 % 09/10/19 03:18 Eos % (Auto) 0.1 % 09/10/19 03:18 Baso % (Auto) 0.1 % 09/10/19 03:18 Absolute Neuts (auto) 8.6 10^3/ul (1.5-7.7) H 09/10/19 03:18 Absolute Lymphs (auto) 0.6 10^3/ul (1.0-4.8) L 09/10/19 03:18 Absolute Monos (auto) 0.8 10^3/ul (0-0.8) 09/10/19 03:18 Absolute Eos (auto) 0.0 10^3/ul (0-0.6) 09/10/19 03:18 Absolute Basos (auto) 0.0 10^3/ul (0-0.2) 09/10/19 03:18 Absolute Nucleated RBC 0.0 10^3/ul 09/10/19 03:18 Immature Gran % 9.0 % (0-9) 09/09/19 12:30 Neutrophils % 74.0 % 09/09/19 12:30 Band Neutrophils % 9.0 % (0-8) H 09/09/19 12:30 Lymphocytes % 11.0 % 09/09/19 12:30 Monocytes % 6.0 % 09/09/19 12:30 Nucleated RBC % 0.0 09/10/19 03:18 Normal RBC Morphology Not Reportable 09/09/19 12:30 Polychromasia 2+ 09/09/19 12:30 Hypochromasia 1+ 09/09/19 12:30 [place] Cells 1+ 09/09/19 12:30 Schistocytes 1+ 09/09/19 12:30 INR (Anticoag Therapy) 1.19 (0.82-1.09) H 09/10/19 12:20 APTT 32.8 seconds (26.0-38.0) 09/10/19 12:20 Patient Temperature Not Reportable 09/09/19 14:10 ABG pH 7.22 (7.35-7.45) L 09/09/19 14:10 ABG pH (Temp Correct) Not Reportable 09/09/19 14:10 ABG pCO2 47 mmHg (35-45) H 09/09/19 14:10 ABG pCO2 (Temp Corrct Not Reportable 09/09/19 14:10 ABG pO2 109 mmHg (80-100) H 09/09/19 14:10 ABG pO2 (Temp Correct Not Reportable 09/09/19 14:10 ABG HCO3 18.3 mmol/L (19-31) L 09/09/19 14:10 ABG O2 Saturation 99.5 % (94.0-98.0) H 09/09/19 14:10 ABG Base Excess -8.5 mmol/L (-2.0-2.0) L 09/09/19 14:10 Respiration Rate 16 09/09/19 14:10 O2 Delivery Device vent 09/09/19 14:10 Ventilator Type 400 09/09/19 14:10 Vent Mode Cmv 09/09/19 14:10 FiO2 30 09/09/19 14:10 Inspiratory Time 1.0 09/09/19 14:10 PEEP 5 09/09/19 14:10 Pressure Support Not Reportable 09/09/19 14:10 Pressure Control Not Reportable 09/09/19 14:10 EPAP Not Reportable 09/09/19 14:10 IPAP Not Reportable 09/09/19 14:10 BiPAP Not Reportable 09/09/19 14:10 Sodium 133 mmol/L (135-145) L 09/12/19 05:40 Potassium 3.3 mmol/L (3.5-5.0) L 09/12/19 05:40 Chloride 98 mmol/L (101-111) L 09/12/19 05:40 Carbon Dioxide 25 mmol/L (22-32) 09/12/19 05:40 Anion Gap 10 mmol/L (2-11) 09/12/19 05:40 BUN 37 mg/dL (6-24) H 09/12/19 05:40 Creatinine 6.29 mg/dL (0.51-0.95) H 09/12/19 05:40 Est GFR ( Amer) 8.0 (>60) 09/12/19 05:40 Est GFR (Non-Af Amer) 6.6 (>60) 09/12/19 05:40 BUN/Creatinine Ratio 5.9 (8-20) L 09/12/19 05:40 Glucose 60 mg/dL (70-100) L 09/12/19 05:40 POC Glucose (mg/dL) 72 mg/dL (70-100) 09/12/19 05:42 Glucose Meter Confirm 270 mg/dL (70-100) H 09/09/19 12:30 Hemoglobin A1c 8.4 % (4.0-5.6) H 09/09/19 06:17 Lactic Acid 2.2 mmol/L (0.5-2.0) H* 09/10/19 03:18 Calcium 6.9 mg/dL (8.6-10.3) L 09/12/19 05:40 Ionized Calcium 1.07 mmol/L (1.16-1.32) L 09/09/19 12:30 Phosphorus 6.8 mg/dL (2.5-5.0) H 09/09/19 12:30 Magnesium 2.5 mg/dL (1.9-2.7) 09/12/19 05:40 Total Bilirubin 0.20 mg/dL (0.2-1.0) 09/09/19 12:30 AST 34 U/L (13-39) 09/09/19 12:30 ALT 17 U/L (7-52) 09/09/19 12:30 Alkaline Phosphatase 77 U/L (34-104) 09/09/19 12:30 Ammonia 90 mcmol/L (16-53) H 09/09/19 12:30 Total Protein 5.7 g/dL (6.4-8.9) L 09/09/19 12:30 Albumin 3.0 g/dL (3.2-5.2) L 09/09/19 12:30 Globulin 2.7 g/dL (2-4) 09/09/19 12:30 Albumin/Globulin Ratio 1.1 (1-3) 09/09/19 12:30 Blood Type B Positive 09/09/19 07:52 Antibody Screen Negative 09/09/19 07:52 Crossmatch See Detail 09/09/19 07:52 Transfusion React Rpt 09/10/19 02:25 Donor Unit # [id number] 09/10/19 02:25 Post-Trans Blood Type B Positive 09/10/19 02:25 Post-Trans DWAIN Negative 09/10/19 02:25
--- NOTE | 2019-09-12 10:02 | PN ---
Date of Service: 09/12/19 Critical Care Services: Doing well this AM. No seizures since initial event. Vital Signs: Temp Pulse Resp BP SpO2 FiO2 98.3 F 63 16 132/63 96 25 Physical Exam: Gen:Alert, comfortable HEENT: No facial asymmetry Lungs: Clear Cardiac: Reg rhythm Abdomen: Mildly Distended Extremities: Trace edema Neuro: No asterixis Fluid Balance (Past 24 Hours): 09/11/19 09/12/19 06:59 06:59 Intake Total 2941 1458 Output Total 0 0 Balance 2941 1458 Weight 180 lb 175 lb Intake: IV Fluids 2311 713 D5NS 185 597 LR 1937 NS 189 116 IVPB 437 330 ABX ABX - CEFAZOLIN K 217 Keppra 110 Zosyn 220 220 Medicated IV 193 Keppra 105 Propofol 88 Oral 415 Packed Cells Output: Urine 0 0 Other: Estimated Void Large Date of Last Bowel t Movement # Bowel Movements 1 Estimated Stool Amount Large Labs: 09/12/19 09/12/19 09/12/19 00:01 05:40 05:40 WBC 10.9 H RBC 3.00 L Hgb 8.6 L Hct 26 L MCV 86 MCH 29 MCHC 33 RDW 18 H Plt Count 243 MPV 7.5 Sodium 133 L Potassium 3.3 L Chloride 98 L Carbon Dioxide 25 Anion Gap 10 BUN 37 H Creatinine 6.29 H Est GFR ( Amer) 8.0 Est GFR (Non-Af Amer) 6.6 BUN/Creatinine Ratio 5.9 L Glucose 60 L POC Glucose (mg/dL) 180 H Calcium 6.9 L Magnesium 2.5 Studies: Scheduled for MRI today. Nutrition: Oral diet Impression: Hypoglycemia this AM, but is asymptomatic. No evidence for hypoglycemia at time of seizure. Is clinically stable at this time, with no recurrence of seizures. Renal failure is chronic and Rxed with peritoneal dialysis. Plan: Will transfer out of ICU today for postop rehab. Neurology is actively following this patient.
[2019-09-12] MEDS: levETIRAcetam 500 MG IVPREMIX* 500 MG/100 ML BAG IV SCH (10:26)
[2019-09-12] MEDS: Diltiazem CD CAP* 240 MG PO SCH (10:27)
[2019-09-12] MEDS: Vitamin THERAPEUTIC TAB PO SCH (10:27)
[2019-09-12] MEDS: cloNIDine TAB* 0.1 MG PO SCH ×3 (10:28→20:18)
[2019-09-12] MEDS: Pantoprazole TAB * 40 MG TAB PO SCH ×2 (10:30→20:18)
[2019-09-12] MEDS: amLODIPine TAB* 5 MG PO SCH (10:30)
[2019-09-12] MEDS: Docusate CAP* 100 MG PO SCH (10:31)
[2019-09-12] MEDS: Heparin VIAL(*) 5000 UNITS/ML VIAL (FIVE THOUSAND) SUBCUT SCH ×2 (10:32→22:23)
[2019-09-12] MEDS: Insulin GLARGINE(*) 1 UNITS UNIT SUBCUT SCH (10:32)
[2019-09-12] MEDS: Magnesium Hydroxide LIQ* 30 ML UDC PO SCH (10:32)
[2019-09-12] MEDS: Labetalol TAB* 300 MG PO SCH ×2 (10:48→20:17)
[2019-09-12] MEDS: Calcitriol CAP* 0.25 MCG PO SCH (10:49)
[2019-09-12] MEDS ORDERED: Scopolamine PATCH Remove* 1 NOTE MISC PATCH OFF SCH (11:00)
[2019-09-12] MEDS: Scopolamine 1.5 mg* PATCH TRANSDERM SCH (11:48)
--- NOTE | 2019-09-12 13:34 | PN ---
Progress Note - Progress Note Date of Service: 09/12/19 Note: cc: ESRD on PD Interval history: Mrs. Moreira is seen and examined in ICU. she is up having breakfast, still connected to the dialysis machine. she states that she is feeling well. denies CP , SOB, palpitations, v/n/c/d I saw the patient during maintenance PD today. stable , without complications Abnormal Lab Results 09/09/19 09/11/19 09/12/19 12:30 18:25 00:01 WBC RBC Hgb Hct MCV MCH MCHC RDW Plt Count MPV Hem Pathologist Commnt Sodium Potassium Chloride Carbon Dioxide Anion Gap BUN Creatinine Est GFR ( Amer) Est GFR (Non-Af Amer) BUN/Creatinine Ratio Glucose POC Glucose (mg/dL) 225 H 180 H Calcium Magnesium 09/12/19 09/12/19 09/12/19 05:40 05:40 05:42 WBC 10.9 H RBC 3.00 L Hgb 8.6 L Hct 26 L MCV 86 MCH 29 MCHC 33 RDW 18 H Plt Count 243 MPV 7.5 Hem Pathologist Commnt Sodium 133 L Potassium 3.3 L Chloride 98 L Carbon Dioxide 25 Anion Gap 10 BUN 37 H Creatinine 6.29 H Est GFR ( Amer) 8.0 Est GFR (Non-Af Amer) 6.6 BUN/Creatinine Ratio 5.9 L Glucose 60 L POC Glucose (mg/dL) 72 Calcium 6.9 L Magnesium 2.5 09/12/19 12:36 WBC RBC Hgb Hct MCV MCH MCHC RDW Plt Count MPV Hem Pathologist Commnt Sodium Potassium Chloride Carbon Dioxide Anion Gap BUN Creatinine Est GFR ( Amer) Est GFR (Non-Af Amer) BUN/Creatinine Ratio Glucose POC Glucose (mg/dL) 71 Calcium Magnesium pe: Temp Pulse Resp BP SpO2 FiO2 97.5 F 74 41 137/63 98 25 09/12/19 12:00 09/12/19 11:26 09/12/19 11:26 09/12/19 11:26 09/12/19 11:26 09/10 12:03 NAD heart: s1, s2 rrr Chest: cta gi: abd soft, nt/nd Extr: no c/c/ trace to +1 edema Acetaminophen (Tylenol Tab*) 975 mg PO Q8HR [facility] Last Admin: 09/12/19 14:47 Dose: 975 mg Amlodipine Besylate (Norvasc Tab*) 10 mg PO QAM [facility] Last Admin: 09/12/19 10:30 Dose: 10 mg Bisacodyl (Dulcolax Supp*) 10 mg [place] DAILY PRN PRN Reason: CONSTIPATION Calcitriol (Rocaltrol Cap*) 0.25 mcg PO QAM [facility] Last Admin: 09/12/19 10:49 Dose: 0.25 mcg Clonidine HCl (Catapres Tab*) 0.3 mg PO TID [facility] Last Admin: 09/12/19 14:48 Dose: 0.3 mg Cyclobenzaprine HCl (Flexeril Tab*) 10 mg PO Q6H PRN PRN Reason: SPASMS Dextrose (D50w Syringe 50 Ml*) 12.5 gm IV PUSH .FOR FS < 60 - SS PRN PRN Reason: FS < 60 Diltiazem [facility] ([facility]em Cd Cap*) [facility] Last Admin: 09/12/19 10:27 Dose: 240 mg Diphenhydramine HCl (Benadryl Iv*) 25 mg IV Q6H PRN PRN Reason: PRURITIS Diphenhydramine HCl (Benadryl Liq*) 12.5 mg PO Q6H PRN PRN Reason: PRURITIS Diphenhydramine HCl (Benadryl Po*) 25 mg PO Q6H PRN PRN Reason: PRURITIS Heparin Sodium (Porcine) (Heparin Vial(*)) 5,000 units SUBCUT Q12HR [facility] Last Admin: 09/12/19 10:32 Dose: 5,000 units Piperacillin Sod/Tazobactam (Sod 3.375 gm/ Sodium Chloride) 100 mls @ 25 mls/ hr IVPB Q12H [facility] Stop: 09/12/19 21:00 Last Admin: 09/12/19 07:50 Dose: 25 mls/hr Levetiracetam (Keppra Iv Premix*) 500 mg in 100 mls @ 400 mls/hr IV DAILY [facility] Last Admin: 09/12/19 10:26 Dose: 400 mls/hr Dextrose/Sodium Chloride (D5ns 0.9% 1000 Ml Bag*) 1,000 mls @ 50 mls/hr IV PER RATE [facility] Last Admin: 09/11/19 02:16 Dose: 50 mls/hr Insulin Glargine (Lantus(*)) 8 units SUBCUT QAM [facility] Last Admin: 09/12/19 10:32 Dose: Not Given Insulin Human Lispro (Humalog*) 0 units SUBCUT Q6H [facility]; Protocol Last Admin: 09/12/19 12:37 Dose: Not Given Isosorbide Mononitrate (Imdur Er Tab*) 30 mg PO QPM [facility] Last Admin: 09/11/19 18:34 Dose: 30 mg Labetalol HCl (Trandate Tab*) 300 mg PO BID [facility] Last Admin: 09/12/19 10:48 Dose: 300 mg Lactulose (Lactulose*) 30 ml PO BID PRN PRN Reason: CONSTIPATION Lorazepam (Ativan Tab(*)) 0.5 mg PO BID PRN PRN Reason: ANXIETY Lorazepam (Ativan Inj*) 1 mg IV PUSH Q6H PRN PRN Reason: seizure Magnesium Hydroxide (Milk Of Magnesia Liq*) 30 ml PO BID [facility] Last Admin: 09/12/19 10:32 Dose: Not Given Magnesium Hydroxide (Milk Of Magnesia Liq*) 30 ml PO Q6H PRN PRN Reason: CONSTIPATION Miscellaneous (Ativan Pyxis [place]) 1 ea N/A .ATIVAN IV STODDARD PRN PRN Reason: PYXIS STODDARD Miscellaneous (Ativan Pyxis [place]) 1 ea N/A .ATIVAN IV STODDARD PRN PRN Reason: PYXIS STODDARD Morphine Sulfate (Morphine Inj (Syringe))*) 2 mg IV Q4H PRN PRN Reason: Pain - Unrelieved Last Admin: 09/12/19 06:53 Dose: 2 mg Multivitamins (Theragran Tab*) 1 tab PO DAILY [facility] Last Admin: 09/12/19 10:27 Dose: 1 tab Mupirocin (Bactroban 2 % Oint*) 1 applic TOPICAL DAILY@1000 [facility] Last Admin: 09/11/19 08:45 Dose: 1 applic Ondansetron HCl (Zofran Odt Tab*) 4 mg PO Q6H PRN PRN Reason: NAUSEA Last Admin: 09/09/19 09:27 Dose: 4 mg Ondansetron HCl (Zofran Inj*) 4 mg IV Q4H PRN PRN Reason: NAUSEA Oxycodone HCl (Roxycodone Tab*) 10 mg PO Q4H PRN PRN Reason: Pain - Breakthrough Last Admin: 09/12/19 14:57 Dose: 10 mg Oxycodone/Acetaminophen (Percocet 5/325 Tab*) 2 tab PO Q4H PRN PRN Reason: PAIN - SEVERE Pantoprazole Sodium (Protonix Tab*) 40 mg PO BID [facility] Last Admin: 09/12/19 10:30 Dose: 40 mg Pharmacy Consult (Zosyn Per Pharmacy*) 1 note FOLLOW UP .ZOSYN PER PHARMACY [facility] Pharmacy Profile Note (Scopolamine Patch Remove*) 1 note PATCH OFF .AFTER 72 HOURS [facility] Polyethylene Glycol/Electrolytes (Miralax*) 17 gm PO DAILY PRN PRN Reason: Constipation Scopolamine (Transderm-Scop 1.5 Mg Patch*) 1 patch TRANSDERM Q72H [facility] Last Admin: 09/12/19 11:48 Dose: 1 patch Senna (Senokot 8.6 Mg Tab*) 1 tab PO DAILY PRN PRN Reason: CONSTIPATION Terazosin HCl (Hytrin Cap*) 10 mg PO BEDTIME [facility] Last Admin: 09/11/19 21:09 Dose: 10 mg A/P: Ms Moreira is a very nice 69 yo woman with h/o ESRD on PD 1. ESRD - continue PD while in the hospital I saw the patient during PD this am. - avoid Mag containing medications: they accumulate in ESRD patients ( I will stp them ) 2. HTN - well controlled 3. Anemia of ESRD .will start Epo 4. Hypereparathyroidism - sec: on calcitriol 5. Hypokalemia - common in PD patients, need K repletion Kcl 20 meq po bid - will order
[2019-09-12] MEDS: Acetaminophen TAB* 325 MG PO SCH ×2 (14:47→22:22)
[2019-09-12] MEDS: oxyCODONE TAB* 5 MG TAB PO PRN (14:57)
[2019-09-12] MEDS ORDERED: EPOETIN ALFA-EPBX * 10,000 UNIT/ML VIAL SUBCUT ONE (15:08)
[2019-09-12] MEDS: Mupirocin 2% OINT* TUBE TOPICAL SCH (16:28)
[2019-09-12] MEDS ORDERED: Warfarin TAB(*) 2 MG PO ONE (18:00)
[2019-09-12] MEDS: Isosorbide Mononitrate ER TAB* 30 MG PO SCH (18:16)
[2019-09-12 18:21] LABS: ABS Eosinophils 0.1 10^3/ul (0-0.6); ABS Lymphocytes 0.8 10^3/ul (1.0-4.8); ABS Neutrophils 9.9 10^3/ul (1.5-7.7); Hematocrit 28 % (35-47); Hemoglobin 9.7 g/dL (12.0-16.0); Lymphocyte % 6.7 %; Mean Corpuscular HGB Conc 35 g/dL (31-36); Mean Corpuscular Hemoglobin 29 pg (27-31); Mean Corpuscular Volume 85 fL (80-97); Mean Platelet Volume 7.9 fL (7.4-10.4); Platelet Count 289 10^3/uL (150-450); Red Cell Distribution Width 18 % (10-15); White Blood Count 11.8 10^3/uL (3.5-10.8)
[2019-09-12 18:35] LABS: EGFR African American 7.5 (>60); EGFR Non-African American 6.2 (>60)
[2019-09-12 19:08] LABS: Activated Partial Thrombo Time 36.8 seconds (26.0-38.0); INR 1.23 (0.82-1.09)
[2019-09-12] MEDS: Terazosin CAP* 5 MG PO SCH (20:19)
[2019-09-12] MEDS: Potassium Chlor TAB* 20 MEQ TAB.ER PO SCH (20:20)
[2019-09-12] MEDS ORDERED: Enoxaparin(*) 30 MG/0.3 ML SYR SUBCUT SCH (22:30)
[2019-09-13] MEDS: Insulin LISPRO* 1 UNITS UNIT SUBCUT SCH ×5 (00:38→21:25)
[2019-09-13 05:47] LABS: Hematocrit 24 % (35-47); Hemoglobin 8.3 g/dL (12.0-16.0); Mean Corpuscular HGB Conc 35 g/dL (31-36); Mean Corpuscular Hemoglobin 30 pg (27-31); Mean Corpuscular Volume 86 fL (80-97); Mean Platelet Volume 7.4 fL (7.4-10.4); Platelet Count 264 10^3/uL (150-450); Red Cell Distribution Width 18 % (10-15); White Blood Count 11.7 10^3/uL (3.5-10.8)
[2019-09-13 06:04] LABS: BUN/Creatinine Ratio 6.3 (8-20); Calcium 7.3 mg/dL (8.6-10.3); EGFR African American 7.4 (>60); EGFR Non-African American 6.1 (>60); Magnesium 2.5 mg/dL (1.9-2.7); Potassium 3.9 mmol/L (3.5-5.0)
[2019-09-13] MEDS: Acetaminophen TAB* 325 MG PO SCH ×3 (06:05→22:40)
[2019-09-13 09:00] LABS: INR 1.14 (0.82-1.09)
[2019-09-13] MEDS: cloNIDine TAB* 0.1 MG PO SCH ×3 (09:50→21:05)
[2019-09-13] MEDS: Pantoprazole TAB * 40 MG TAB PO SCH ×2 (09:50→21:07)
[2019-09-13] MEDS: Calcitriol CAP* 0.25 MCG PO SCH (09:51)
[2019-09-13] MEDS: Vitamin THERAPEUTIC TAB PO SCH (09:51)
[2019-09-13] MEDS: Labetalol TAB* 300 MG PO SCH ×2 (09:51→21:08)
[2019-09-13] MEDS: Diltiazem CD CAP* 240 MG PO SCH (09:51)
[2019-09-13] MEDS: Potassium Chlor TAB* 20 MEQ TAB.ER PO SCH ×2 (09:51→21:06)
[2019-09-13] MEDS: Mupirocin 2% OINT* TUBE TOPICAL SCH (10:05)
--- NOTE | 2019-09-13 10:31 | PN ---
Progress Note - Progress Note Date of Service: 09/13/19 SOAP: Subjective: []Pt seen and examined at bedside on SSU. She feels well without any complaints. Denies headache, CP, SOB, dizziness, dizziness, nausea. No current confusion, still no recollection of day of surgery or seizures. Brain MRI pending. Has bed offer PMRU Objective: []Gen: NAD, alert and oriented to person, place and time. RLE: Right knee dressing CDI, thigh soft, DF/PF intact, DP2+, sensation intact to light touch distally. Calves supple and nontender without erythema, edema or palpable cords Assessment: 69 yo female s/p right TKA POD #5 Plan: PT/OT WBAT Peritoneal dialysis Daily Appreciate ICU team On heparin DVT prophy. Please ensure use of SCDs as well Okay for PMRU from ortho standpoint Vital Signs Temp 98.2 F 09/13/19 08:01 Pulse 71 09/13/19 08:01 Resp 16 09/13/19 08:01 BP 128/53 09/13/19 08:01 Pulse Ox 99 09/13/19 08:01 Intake & Output 09/12/19 09/13/19 09/13/19 18:59 06:59 18:59 Intake Total 430 Output Total 0 0 Balance 0 430 Weight 188 lb 175 lb Intake: IV Fluids 20 NS 20 IVPB 110 Zosyn 110 Oral 300 Output: Urine 0 0 Other: Date of Last Bowel 09/12/19 Movement # Bowel Movements 1 Estimated Stool Amount Medium Laboratory Last Values WBC 11.7 10^3/uL (3.5-10.8) H 09/13/19 05:30 RBC 2.80 10^6 /uL (3.70-4.87) L 09/13/19 05:30 Hgb 8.3 g/dL (12.0-16.0) L 09/13/19 05:30 Hct 24 % (35-47) L 09/13/19 05:30 MCV 86 fL (80-97) 09/13/19 05:30 MCH 30 pg (27-31) 09/13/19 05:30 MCHC 35 g/dL (31-36) 09/13/19 05:30 RDW 18 % (10-15) H 09/13/19 05:30 Plt Count 264 10^3/uL (150-450) 09/13/19 05:30 MPV 7.4 fL (7.4-10.4) 09/13/19 05:30 Neut % (Auto) 83.4 % 09/12/19 17:59 Lymph % (Auto) 6.7 % 09/12/19 17:59 Williams % (Auto) 8.5 % 09/12/19 17:59 Eos % (Auto) 1.0 % 09/12/19 17:59 Baso % (Auto) 0.4 % 09/12/19 17:59 Absolute Neuts (auto) 9.9 10^3/ul (1.5-7.7) H 09/12/19 17:59 Absolute Lymphs (auto) 0.8 10^3/ul (1.0-4.8) L 09/12/19 17:59 Absolute Monos (auto) 1.0 10^3/ul (0-0.8) H 09/12/19 17:59 Absolute Eos (auto) 0.1 10^3/ul (0-0.6) 09/12/19 17:59 Absolute Basos (auto) 0.0 10^3/ul (0-0.2) 09/12/19 17:59 Absolute Nucleated RBC 0.0 10^3/ul 09/12/19 17:59 Immature Gran % 9.0 % (0-9) 09/09/19 12:30 Neutrophils % 74.0 % 09/09/19 12:30 Band Neutrophils % 9.0 % (0-8) H 09/09/19 12:30 Lymphocytes % 11.0 % 09/09/19 12:30 Monocytes % 6.0 % 09/09/19 12:30 Nucleated RBC % 0.0 09/12/19 17:59 Normal RBC Morphology Not Reportable 09/09/19 12:30 Polychromasia 2+ 09/09/19 12:30 Hypochromasia 1+ 09/09/19 12:30 [place] Cells 1+ 09/09/19 12:30 Schistocytes 1+ 09/09/19 12:30 Hem Pathologist Commnt 09/09/19 12:30 INR (Anticoag Therapy) 1.14 (0.82-1.09) H 09/13/19 08:28 APTT 36.8 seconds (26.0-38.0) 09/12/19 18:45 Patient Temperature Not Reportable 09/09/19 14:10 ABG pH 7.22 (7.35-7.45) L 09/09/19 14:10 ABG pH (Temp Correct) Not Reportable 09/09/19 14:10 ABG pCO2 47 mmHg (35-45) H 09/09/19 14:10 ABG pCO2 (Temp Corrct Not Reportable 09/09/19 14:10 ABG pO2 109 mmHg (80-100) H 09/09/19 14:10 ABG pO2 (Temp Correct Not Reportable 09/09/19 14:10 ABG HCO3 18.3 mmol/L (19-31) L 09/09/19 14:10 ABG O2 Saturation 99.5 % (94.0-98.0) H 09/09/19 14:10 ABG Base Excess -8.5 mmol/L (-2.0-2.0) L 09/09/19 14:10 Respiration Rate 16 09/09/19 14:10 O2 Delivery Device vent 09/09/19 14:10 Ventilator Type 400 09/09/19 14:10 Vent Mode Cmv 09/09/19 14:10 FiO2 30 09/09/19 14:10 Inspiratory Time 1.0 09/09/19 14:10 PEEP 5 09/09/19 14:10 Pressure Support Not Reportable 09/09/19 14:10 Pressure Control Not Reportable 09/09/19 14:10 EPAP Not Reportable 09/09/19 14:10 IPAP Not Reportable 09/09/19 14:10 BiPAP Not Reportable 09/09/19 14:10 Sodium 133 mmol/L (135-145) L 09/13/19 05:30 Potassium 3.9 mmol/L (3.5-5.0) 09/13/19 05:30 Chloride 97 mmol/L (101-111) L 09/13/19 05:30 Carbon Dioxide 25 mmol/L (22-32) 09/13/19 05:30 Anion Gap 11 mmol/L (2-11) 09/13/19 05:30 BUN 42 mg/dL (6-24) H 09/13/19 05:30 Creatinine 6.71 mg/dL (0.51-0.95) H 09/13/19 05:30 Est GFR ( Amer) 7.4 (>60) 09/13/19 05:30 Est GFR (Non-Af Amer) 6.1 (>60) 09/13/19 05:30 BUN/Creatinine Ratio 6.3 (8-20) L 09/13/19 05:30 Glucose 59 mg/dL (70-100) L 09/13/19 05:30 POC Glucose (mg/dL) 118 mg/dL (70-100) H 09/13/19 09:45 Glucose Meter Confirm 270 mg/dL (70-100) H 09/09/19 12:30 Hemoglobin A1c 8.4 % (4.0-5.6) H 09/09/19 06:17 Lactic Acid 2.2 mmol/L (0.5-2.0) H* 09/10/19 03:18 Calcium 7.3 mg/dL (8.6-10.3) L 09/13/19 05:30 Ionized Calcium 1.07 mmol/L (1.16-1.32) L 09/09/19 12:30 Phosphorus 6.8 mg/dL (2.5-5.0) H 09/09/19 12:30 Magnesium 2.5 mg/dL (1.9-2.7) 09/13/19 05:30 Total Bilirubin 0.20 mg/dL (0.2-1.0) 09/09/19 12:30 AST 34 U/L (13-39) 09/09/19 12:30 ALT 17 U/L (7-52) 09/09/19 12:30 Alkaline Phosphatase 77 U/L (34-104) 09/09/19 12:30 Ammonia 90 mcmol/L (16-53) H 09/09/19 12:30 Total Protein 5.7 g/dL (6.4-8.9) L 09/09/19 12:30 Albumin 3.0 g/dL (3.2-5.2) L 09/09/19 12:30 Globulin 2.7 g/dL (2-4) 09/09/19 12:30 Albumin/Globulin Ratio 1.1 (1-3) 09/09/19 12:30 Blood Type B Positive 09/09/19 07:52 Antibody Screen Negative 09/09/19 07:52 Crossmatch See Detail 09/09/19 07:52 Transfusion React Rpt 09/10/19 02:25 Donor Unit # [id number] 09/10/19 02:25 Post-Trans Blood Type B Positive 09/10/19 02:25 Post-Trans DWAIN Negative 09/10/19 02:25 Reaction Interpretation 09/10/19 02:25
[2019-09-13] MEDS: levETIRAcetam 500 MG IVPREMIX* 500 MG/100 ML BAG IV SCH (10:36)
[2019-09-13] MEDS: levETIRAcetam TAB* 500 MG PO SCH (11:23)
[2019-09-13] MEDS: Heparin VIAL(*) 5000 UNITS/ML VIAL (FIVE THOUSAND) SUBCUT SCH ×2 (11:24→22:41)
[2019-09-13] MEDS: amLODIPine TAB* 5 MG PO SCH (11:41)
[2019-09-13] MEDS ORDERED: Dextrose 50% Syringe 50 ML* 25 GM/50 ML SYRINGE IV PUSH PRN (12:00)
[2019-09-13 12:15] LABS: TSH (Thyroid Stimulating Horm) 0.41 mcIU/mL (0.34-5.60)
--- NOTE | 2019-09-13 13:19 | PN ---
Subjective Date of Service: 09/13/19 Interval History: Pt examined today at the bedside. She states that she is doing better. She states that she has not had any further seizure like activity. She denies worsening trouble with anxiety or depression. She states she does not remember what happened after the surgery. ROS-denies fever, denies chills, denies chest pain, denies shortness of breathe , denies abdominal pain, denies nausea, denies vomiting, denies lightheadedness , denies loc, review of 14 systems completed all others negative, Review of Systems: Denied CP, SOB, or palpitations. Family History: Unchanged from Admission Social History: Unchanged from Admission Past Medical History: Unchanged from Admission Objective Active Medications: Acetaminophen (Tylenol Tab*) 975 mg PO Q8HR [facility] Last Admin: 09/13/19 06:05 Dose: 975 mg Amlodipine Besylate ([facility]vasc [facility]*) [facility] [place] Last Admin: 09/13/19 11:41 Dose: 10 mg Bisacodyl (Dulcolax Supp*) 10 mg [place] DAILY PRN PRN Reason: CONSTIPATION Calcitriol (Rocaltrol Cap*) 0.25 mcg PO QAM [facility] Last Admin: 09/13/19 09:51 Dose: 0.25 mcg Clonidine HCl (Catapres Tab*) 0.3 mg PO TID [facility] Last Admin: 09/13/19 09:50 Dose: 0.3 mg Cyclobenzaprine HCl (Flexeril Tab*) 10 mg PO Q6H PRN PRN Reason: SPASMS Dextrose (D50w Syringe 50 Ml*) 12.5 gm IV PUSH .FOR FS < 60 - SS PRN PRN Reason: FS < 60 Diltiazem HCl (Cardizem Cd Cap*) 240 mg PO QAM [facility] Last Admin: 09/13/19 09:51 Dose: 240 mg Diphenhydramine HCl (Benadryl Iv*) 25 mg IV Q6H PRN PRN Reason: PRURITIS Diphenhydramine HCl (Benadryl Liq*) 12.5 mg PO Q6H PRN PRN Reason: PRURITIS Diphenhydramine HCl (Benadryl Po*) 25 mg PO Q6H PRN PRN Reason: PRURITIS Heparin Sodium (Porcine) (Heparin Vial(*)) 5,000 units SUBCUT Q12H [facility] Last Admin: 09/13/19 11:24 Dose: 5,000 units Heparin Sodium (Porcine) (Heparin Flush Picc/Ml/Cvc(*)) 0 ml FLUSH .PER PROTOCOL [facility] Last Admin: 09/13/19 06:05 Dose: 1 ml Insulin Human Lispro (Humalog*) 0 units SUBCUT ACHS [facility]; Protocol Isosorbide Mononitrate (Imdur Er Tab*) 30 mg PO QPM [facility] Last Admin: 09/12/19 18:16 Dose: 30 mg Labetalol HCl (Trandate Tab*) 300 mg PO BID [facility] Last Admin: 09/13/19 09:51 Dose: 300 mg Lactulose (Lactulose*) 30 ml PO BID PRN PRN Reason: CONSTIPATION Levetiracetam (Keppra Tab*) 500 mg PO DAILY [facility] Last Admin: 09/13/19 11:23 Dose: 500 mg Lorazepam (Ativan Tab(*)) 0.5 mg PO BID PRN PRN Reason: ANXIETY Lorazepam (Ativan Inj*) 1 mg IV PUSH Q6H PRN PRN Reason: seizure Miscellaneous (Ativan Pyxis Stoddard) 1 ea N/A .ATIVAN IV TSODDARD PRN PRN Reason: PYXIS STODDARD Morphine Sulfate (Morphine Inj (Syringe))*) 2 mg IV Q4H PRN PRN Reason: Pain - Unrelieved Last Admin: 09/12/19 06:53 Dose: 2 mg Multivitamins (Theragran Tab*) 1 tab PO DAILY [facility] Last Admin: 09/13/19 09:51 Dose: 1 tab Mupirocin (Bactroban 2 % Oint*) 1 applic TOPICAL DAILY@1000 [facility] Last Admin: 09/13/19 10:05 Dose: Not Given Ondansetron HCl (Zofran Odt Tab*) 4 mg PO Q6H PRN PRN Reason: NAUSEA Last Admin: 09/09/19 09:27 Dose: 4 mg Ondansetron HCl (Zofran Inj*) 4 mg IV Q4H PRN PRN Reason: NAUSEA Oxycodone HCl (Roxycodone Tab*) 10 mg PO Q4H PRN PRN Reason: Pain - Breakthrough Last Admin: 09/12/19 14:57 Dose: 10 mg Oxycodone/Acetaminophen (Percocet 5/325 Tab*) 2 tab PO Q4H PRN PRN Reason: PAIN - SEVERE Last Admin: 09/12/19 18:16 Dose: 1 tab Pantoprazole Sodium (Protonix Tab*) 40 mg PO BID [facility] Last Admin: 09/13/19 09:50 Dose: 40 mg Pharmacy Consult (Zosyn Per Pharmacy*) 1 note FOLLOW UP .ZOSYN PER PHARMACY [facility] Pharmacy Profile Note (Scopolamine Patch Remove*) 1 note PATCH OFF .AFTER 72 HOURS [facility] Polyethylene Glycol/Electrolytes (Miralax*) 17 gm PO DAILY PRN PRN Reason: Constipation Potassium Chloride (Klor Con Er Tab*) 20 meq PO BID [facility] Last Admin: 09/13/19 09:51 Dose: 20 meq Scopolamine (Transderm-Scop 1.5 Mg Patch*) 1 patch TRANSDERM Q72H [facility] Last Admin: 09/12/19 11:48 Dose: 1 patch Senna (Senokot 8.6 Mg Tab*) 1 tab PO DAILY PRN PRN Reason: CONSTIPATION Terazosin HCl (Hytrin Cap*) 10 mg PO BEDTIME [facility] Last Admin: 09/12/19 20:19 Dose: 10 mg Warfarin Sodium (Coumadin Tab(*)) 3 mg PO ONCE@1700 [facility]; Protocol Stop: 09/13/19 17:01 Vital Signs 09/12/19 09/12/19 09/12/19 16:05 16:43 18:16 Temperature 97.9 F Pulse Rate 79 Respiratory 18 18 18 Rate Blood Pressure 137/51 (mmHg) O2 Sat by Pulse 98 Oximetry 09/12/19 09/12/19 09/12/19 19:30 20:00 20:15 Temperature Pulse Rate Respiratory 18 16 18 Rate Blood Pressure (mmHg) O2 Sat by Pulse Oximetry 09/12/19 09/12/19 09/13/19 20:46 23:28 04:00 Temperature 98.5 F 98.3 F 98.2 F Pulse Rate 68 62 71 Respiratory 18 18 16 Rate Blood Pressure 128/51 124/58 127/50 (mmHg) O2 Sat by Pulse 98 100 95 Oximetry 09/13/19 09/13/19 09/13/19 08:00 08:01 11:09 Temperature 98.2 F 98.3 F Pulse Rate 71 79 Respiratory 16 16 17 Rate Blood Pressure 128/53 143/50 (mmHg) O2 Sat by Pulse 99 96 Oximetry Intake and Output Last 24 Hours 09/11/19 09/12/19 09/13/19 09/14/19 06:59 06:59 06:59 06:59 Intake Total 2941 1458 430 Output Total 0 0 0 Balance 2941 1458 430 Weight 180 lb 15.992 oz 175 lb 4.8 oz 188 lb 175 lb Intake: IV Fluids 2311 713 20 D5NS 185 597 LR 1937 NS 189 116 20 IVPB 437 330 110 K 217 Keppra 110 Zosyn 220 220 110 Medicated IV 193 Keppra 105 Propofol 88 Oral 415 300 Output: Urine 0 0 0 Other: Estimated Void Large Date of Last Bowel t 09/12/19 Movement # Bowel Movements 1 1 Estimated Stool Amount Large Medium Oxygen Devices in Use Now: None Neurology Exam: General: Well nourished, well developed, and in no acute distress HEENT: Normocephelic/atraumatic, sclera anicteric, mucous membranes moist Neck: Supple Chest: Clear to auscultation bilaterally Cardiovascular: Regular rate and rhythm without murmurs, rubs, gallops Abdomen: Soft, non-tender/non-distended Extremities: No clubbing, cyanosis, or edema Neurological Findings: Awake, alert, and oriented to person, place, and time. Speech: fluent without dysarthria, repetition intact Cranial Nerve: PERRL, EOM intact, VFF, no nystagmus, face symmetric bilaterally , facial sensation intact, hearing intact to finger rub bilaterally, palate elevates symmetrically, tongue midline, SCM and Trapezius 5/5, disconjugate gaze chronic, proptosis noted, Motor: 5/5 throughout, proximal and distal extremities x4 tone/bulk normal, decreased ROM to the RLE operative leg, Sensation: intact to LTbilaterally upper and lower extremities Deep Tendon Reflex: down throughout symmetric in the upper/lower extremities, Babinski - down going Finger to nose, rapid alternating movements intact without tremor, no dysdiadochokinesia Gait: wide based, Result Diagrams: 09/13/19 05:30 09/13/19 05:30 Microbiology and Other Data: Microbiology 09/08/19 09:00 Gram Stain - Final Knee Assessment/Plan 69 y/o [place] [facility] [place] 1 noted to have seizures with unclear etiology was intubated and transferred to the ICU Seizures -most likely provoked however in setting of right mesial temporal sclerosis would recommend keppra -continue keppra, renally adjusted, -Ct head negative -CTA shows 31 percent stenosis of the right carotid -MRI shows chronic vessel ischemia, chronic microhemmorhage, right temporal lobe scelrosis, proptosis and mastiod effusion, -Check keppra level fasting on thursday (09/16) in am before medication please call neuro with results -discuss no driving and reporting to the [place] which patient states she will do -discussed avoiding bath, heights, swimming alone, open flames, heavy equipment -will need outpatient follow up with neurology 4-6 weeks -EEG negative -proptosis recommend tsh, and follow up with ophthalmology -chronic microhemmorage in cerebral hemispheres-suspect r/t htn, would recommend controlling htn, i note patient is on warfarin for dvt prevention in setting of recent surgery, benefit of coumadin outweigh the risk in this setting would recommend continuing for shortest duration possible from ortho standpoint. -chronic small vessel ischemia, with chronic lacunar infarct control, htn, hld, dm, consider baby asa after coumadin complete, continue with secondary risk factor reduction -discussed case with Dr Bull From out standpoint we will sign off, if ay further seizure activity please call us, check keppra level on thursday, she will louise office visit in 4-6 weeks.
[2019-09-13] MEDS ORDERED: Warfarin TAB(*) 3 MG PO ONE (17:00)
--- NOTE | 2019-09-13 17:45 | PN ---
Progress Note - Progress Note Date of Service: 09/13/19 Note: CC: ESRD ON PD INTERVAL HISTORY : Ms. Moreira looks muvh better compared to yesterday . she is not in critical condition anymore and she was transferred from ICU to the medical floor. she feels great. she is amazed that her knee is not hurting after surgery. PD went well last night , she denies any alarms. she does not have a last bag fill. denies cp, sob , palpitations , low appetite. Meds: Acetaminophen (Tylenol Tab*) 975 mg PO Q8HR [facility] Last Admin: 09/13/19 14:50 Dose: 975 mg Amlodipine Besylate (Norvasc Tab*) 10 mg PO QAM [facility] Last Admin: 09/13/19 11:41 Dose: 10 mg Bisacodyl (Dulcolax Supp*) 10 mg [place] DAILY PRN PRN Reason: CONSTIPATION Calcitriol (Rocaltrol Cap*) 0.25 mcg PO QAM [facility] Last Admin: 09/13/19 09:51 Dose: 0.25 mcg Clonidine HCl (Catapres Tab*) 0.3 mg PO TID [facility] Last Admin: 09/13/19 14:38 Dose: 0.3 mg Cyclobenzaprine HCl (Flexeril Tab*) 10 mg PO Q6H PRN PRN Reason: SPASMS Dextrose (D50w Syringe 50 Ml*) 12.5 gm IV PUSH .FOR FS < 60 - SS PRN PRN Reason: FS < 60 Diltiazem HCl (Cardizem Cd Cap*) 240 mg PO QAM [facility] Last Admin: 09/13/19 09:51 Dose: 240 mg Diphenhydramine HCl (Benadryl Iv*) 25 mg IV Q6H PRN PRN Reason: PRURITIS Diphenhydramine HCl (Benadryl Liq*) 12.5 mg PO Q6H PRN PRN Reason: PRURITIS Diphenhydramine HCl (Benadryl Po*) 25 mg PO Q6H PRN PRN Reason: PRURITIS Heparin Sodium (Porcine) (Heparin Vial(*)) 5,000 units SUBCUT Q12H [facility] Last Admin: 09/13/19 11:24 Dose: 5,000 units Heparin Sodium (Porcine) (Heparin Flush Picc/Ml/Cvc(*)) 0 ml FLUSH .PER PROTOCOL [facility] Last Admin: 09/13/19 06:05 Dose: 1 ml Insulin Human Lispro (Humalog*) 0 units SUBCUT ACHS [facility]; Protocol Last Admin: 09/13/19 13:03 Dose: 1 unit Isosorbide Mononitrate (Imdur Er Tab*) 30 mg PO QPM [facility] Last Admin: 09/12/19 18:16 Dose: 30 mg Labetalol HCl (Trandate Tab*) 300 mg PO BID [facility] Last Admin: 09/13/19 09:51 Dose: 300 mg Lactulose (Lactulose*) 30 ml PO BID PRN PRN Reason: CONSTIPATION Levetiracetam (Keppra Tab*) 500 mg PO DAILY [facility] Last Admin: 09/13/19 11:23 Dose: 500 mg Lorazepam (Ativan Tab(*)) 0.5 mg PO BID PRN PRN Reason: ANXIETY Lorazepam (Ativan Inj*) 1 mg IV PUSH Q6H PRN PRN Reason: seizure Miscellaneous (Ativan Pyxis Stoddard) 1 ea N/A .ATIVAN IV STODDARD PRN PRN Reason: PYXIS STODDARD Morphine Sulfate (Morphine Inj (Syringe))*) 2 mg IV Q4H PRN PRN Reason: Pain - Unrelieved Last Admin: 09/12/19 06:53 Dose: 2 mg Multivitamins (Theragran Tab*) 1 tab PO DAILY [facility] Last Admin: 09/13/19 09:51 Dose: 1 tab Mupirocin (Bactroban 2 % Oint*) 1 applic TOPICAL DAILY@1000 [facility] Last Admin: 09/13/19 10:05 Dose: Not Given Ondansetron HCl (Zofran Odt Tab*) 4 mg PO Q6H PRN PRN Reason: NAUSEA Last Admin: 09/09/19 09:27 Dose: 4 mg Ondansetron HCl (Zofran Inj*) 4 mg IV Q4H PRN PRN Reason: NAUSEA Oxycodone HCl (Roxycodone Tab*) 10 mg PO Q4H PRN PRN Reason: Pain - Breakthrough Last Admin: 09/12/19 14:57 Dose: 10 mg Oxycodone/Acetaminophen (Percocet 5/325 Tab*) 2 tab PO Q4H PRN PRN Reason: PAIN - SEVERE Last Admin: 09/12/19 18:16 Dose: 1 tab Pantoprazole Sodium (Protonix Tab*) 40 mg PO BID [facility] Last Admin: 09/13/19 09:50 Dose: 40 mg Pharmacy Profile Note (Scopolamine Patch Remove*) 1 note PATCH OFF .AFTER 72 HOURS [facility] Polyethylene Glycol/Electrolytes (Miralax*) 17 gm PO DAILY PRN PRN Reason: Constipation Potassium Chloride (Klor Con Er Tab*) 20 meq PO BID [facility] Last Admin: 09/13/19 09:51 Dose: 20 meq Scopolamine (Transderm-Scop 1.5 Mg Patch*) 1 patch TRANSDERM Q72H [facility] Last Admin: 09/12/19 11:48 Dose: 1 patch Senna (Senokot 8.6 Mg Tab*) 1 tab PO DAILY PRN PRN Reason: CONSTIPATION Terazosin HCl (Hytrin Cap*) 10 mg PO BEDTIME [facility] Last Admin: 09/12/19 20:19 Dose: 10 mg physical exam : Vital Signs 09/12/19 09/12/19 09/12/19 18:16 19:30 20:00 Temperature Pulse Rate Respiratory 18 18 16 Rate Blood Pressure (mmHg) O2 Sat by Pulse Oximetry 09/12/19 09/12/19 09/12/19 20:15 20:46 23:28 Temperature 98.5 F 98.3 F Pulse Rate 68 62 Respiratory 18 18 18 Rate Blood Pressure 128/51 124/58 (mmHg) O2 Sat by Pulse 98 100 Oximetry 09/13/19 09/13/19 09/13/19 04:00 08:00 08:01 Temperature 98.2 F 98.2 F Pulse Rate 71 71 Respiratory 16 16 16 Rate Blood Pressure 127/50 128/53 (mmHg) O2 Sat by Pulse 95 99 Oximetry 09/13/19 09/13/19 11:09 15:50 Temperature 98.3 F 98.3 F Pulse Rate 79 75 Respiratory 17 18 Rate Blood Pressure 143/50 127/49 (mmHg) O2 Sat by Pulse 96 99 Oximetry Constitutional :NAD Resp: cta heart : s1, s2 rrr, trace Le edema abd: soft , nt /nd Abnormal Lab Results 09/12/19 09/12/19 09/12/19 17:59 17:59 18:04 WBC 11.8 H RBC 3.30 L Hgb 9.7 L Hct 28 L MCV 85 MCH 29 MCHC 35 RDW 18 H Plt Count 289 MPV 7.9 Neut % (Auto) 83.4 Lymph % (Auto) 6.7 Clare % (Auto) 8.5 Eos % (Auto) 1.0 Baso % (Auto) 0.4 Absolute Neuts (auto) 9.9 H Absolute Lymphs (auto) 0.8 L Absolute Monos (auto) 1.0 H Absolute Eos (auto) 0.1 Absolute Basos (auto) 0.0 Absolute Nucleated RBC 0.0 Nucleated RBC % 0.0 INR (Anticoag Therapy) APTT Sodium Potassium Chloride Carbon Dioxide Anion Gap BUN 42 H Creatinine 6.65 H Est GFR ( Amer) 7.5 Est GFR (Non-Af Amer) 6.2 BUN/Creatinine Ratio Glucose POC Glucose (mg/dL) 171 H Calcium Magnesium TSH 09/12/19 09/13/19 09/13/19 18:45 00:27 05:30 WBC RBC Hgb Hct MCV MCH MCHC RDW Plt Count MPV Neut % (Auto) Lymph % (Auto) Clare % (Auto) Eos % (Auto) Baso % (Auto) Absolute Neuts (auto) Absolute Lymphs (auto) Absolute Monos (auto) Absolute Eos (auto) Absolute Basos (auto) Absolute Nucleated RBC Nucleated RBC % INR (Anticoag Therapy) 1.23 H APTT 36.8 Sodium 133 L Potassium 3.9 Chloride 97 L Carbon Dioxide 25 Anion Gap 11 BUN 42 H Creatinine 6.71 H Est GFR ( Amer) 7.4 Est GFR (Non-Af Amer) 6.1 BUN/Creatinine Ratio 6.3 L Glucose 59 L POC Glucose (mg/dL) 270 H Calcium 7.3 L Magnesium 2.5 TSH 0.41 09/13/19 09/13/19 09/13/19 05:30 05:57 08:16 WBC 11.7 H RBC 2.80 L Hgb 8.3 L Hct 24 L MCV 86 MCH 30 MCHC 35 RDW 18 H Plt Count 264 MPV 7.4 Neut % (Auto) Lymph % (Auto) Clare % (Auto) Eos % (Auto) Baso % (Auto) Absolute Neuts (auto) Absolute Lymphs (auto) Absolute Monos (auto) Absolute Eos (auto) Absolute Basos (auto) Absolute Nucleated RBC Nucleated RBC % INR (Anticoag Therapy) APTT Sodium Potassium Chloride Carbon Dioxide Anion Gap BUN Creatinine Est GFR ( Amer) Est GFR (Non-Af Amer) BUN/Creatinine Ratio Glucose POC Glucose (mg/dL) 75 98 Calcium Magnesium TSH 09/13/19 09/13/19 09/13/19 08:28 09:04 09:45 WBC RBC Hgb Hct MCV MCH MCHC RDW Plt Count MPV Neut % (Auto) Lymph % (Auto) Clare % (Auto) Eos % (Auto) Baso % (Auto) Absolute Neuts (auto) Absolute Lymphs (auto) Absolute Monos (auto) Absolute Eos (auto) Absolute Basos (auto) Absolute Nucleated RBC Nucleated RBC % INR (Anticoag Therapy) 1.14 H APTT Sodium Potassium Chloride Carbon Dioxide Anion Gap BUN Creatinine Est GFR ( Amer) Est GFR (Non-Af Amer) BUN/Creatinine Ratio Glucose POC Glucose (mg/dL) 105 H 118 H Calcium Magnesium TSH 09/13/19 09/13/19 12:24 16:36 WBC RBC Hgb Hct MCV MCH MCHC RDW Plt Count MPV Neut % (Auto) Lymph % (Auto) Clare % (Auto) Eos % (Auto) Baso % (Auto) Absolute Neuts (auto) Absolute Lymphs (auto) Absolute Monos (auto) Absolute Eos (auto) Absolute Basos (auto) Absolute Nucleated RBC Nucleated RBC % INR (Anticoag Therapy) APTT Sodium Potassium Chloride Carbon Dioxide Anion Gap BUN Creatinine Est GFR ( Amer) Est GFR (Non-Af Amer) BUN/Creatinine Ratio Glucose POC Glucose (mg/dL) 148 H 142 H Calcium Magnesium TSH a/p 1. esrd on pd . tolerating pd well , will conitnue Pd overnight , same rx 2. HTN well controlled 3 anemia of esrd . received gregorio 4. 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 hypokalemia - resolved .
--- NOTE | 2019-09-13 18:02 | PN ---
Subjective Date of Service: 09/13/19 Interval History: No overnight events. Kristal felt great this morning and very thankful for the care she has received. No complaints, no pain. No concerns. Family History: Unchanged from Admission Social History: Unchanged from Admission Past Medical History: Unchanged from Admission Objective Active Medications: Acetaminophen (Tylenol Tab*) 975 mg PO Q8HR [facility] Last Admin: 09/13/19 14:50 Dose: 975 mg Amlodipine Besylate (Norvasc Tab*) 10 mg PO QAM [facility] Last Admin: 09/13/19 11:41 Dose: 10 mg Bisacodyl (Dulcolax Supp*) 10 mg AK DAILY PRN PRN Reason: CONSTIPATION Calcitriol (Rocaltrol Cap*) 0.25 mcg PO QAM [facility] Last Admin: 09/13/19 09:51 Dose: 0.25 mcg Clonidine HCl (Catapres Tab*) 0.3 mg PO TID [facility] Last Admin: 09/13/19 14:38 Dose: 0.3 mg Cyclobenzaprine HCl (Flexeril Tab*) 10 mg PO Q6H PRN PRN Reason: SPASMS Dextrose (D50w Syringe 50 Ml*) 12.5 gm IV PUSH .FOR FS < 60 - SS PRN PRN Reason: FS < 60 Diltiazem HCl (Cardizem Cd Cap*) 240 mg PO QAM [facility] Last Admin: 09/13/19 09:51 Dose: 240 mg Diphenhydramine HCl (Benadryl Iv*) 25 mg IV Q6H PRN PRN Reason: PRURITIS Diphenhydramine HCl (Benadryl Liq*) 12.5 mg PO Q6H PRN PRN Reason: PRURITIS Diphenhydramine HCl (Benadryl Po*) 25 mg PO Q6H PRN PRN Reason: PRURITIS Heparin Sodium (Porcine) (Heparin Vial(*)) 5,000 units SUBCUT Q12H [facility] Last Admin: 09/13/19 11:24 Dose: 5,000 units Heparin Sodium (Porcine) (Heparin Flush Picc/Ml/Cvc(*)) 0 ml FLUSH .PER PROTOCOL [facility] Last Admin: 09/13/19 06:05 Dose: 1 ml Insulin Human Lispro (Humalog*) 0 units SUBCUT [facility]; Protocol Last Admin: 09/13/19 13:03 Dose: 1 unit Isosorbide Mononitrate (Imdur Er Tab*) 30 mg PO QPM [facility] Last Admin: 09/12/19 18:16 Dose: 30 mg Labetalol HCl (Trandate Tab*) 300 mg PO BID [facility] Last Admin: 09/13/19 09:51 Dose: 300 mg Lactulose (Lactulose*) 30 ml PO BID PRN PRN Reason: CONSTIPATION Levetiracetam (Keppra Tab*) 500 mg PO DAILY [facility] Last Admin: 09/13/19 11:23 Dose: 500 mg Lorazepam (Ativan Tab(*)) 0.5 mg PO BID PRN PRN Reason: ANXIETY Lorazepam (Ativan Inj*) 1 mg IV PUSH Q6H PRN PRN Reason: seizure Miscellaneous (Ativan Pyxis Stoddard) 1 ea N/A .ATIVAN IV STODDARD PRN PRN Reason: PYXIS STODDARD Morphine Sulfate (Morphine Inj (Syringe))*) 2 mg IV Q4H PRN PRN Reason: Pain - Unrelieved Last Admin: 09/12/19 06:53 Dose: 2 mg Multivitamins (Theragran Tab*) 1 tab PO DAILY [facility] Last Admin: 09/13/19 09:51 Dose: 1 tab Mupirocin (Bactroban 2 % Oint*) 1 applic TOPICAL DAILY@1000 [facility] Last Admin: 09/13/19 10:05 Dose: Not Given Ondansetron HCl (Zofran Odt Tab*) 4 mg PO Q6H PRN PRN Reason: NAUSEA Last Admin: 09/09/19 09:27 Dose: 4 mg Ondansetron HCl (Zofran Inj*) 4 mg IV Q4H PRN PRN Reason: NAUSEA Oxycodone HCl (Roxycodone Tab*) 10 mg PO Q4H PRN PRN Reason: Pain - Breakthrough Last Admin: 09/12/19 14:57 Dose: 10 mg Oxycodone/Acetaminophen (Percocet 5/325 Tab*) 2 tab PO Q4H PRN PRN Reason: PAIN - SEVERE Last Admin: 09/12/19 18:16 Dose: 1 tab Pantoprazole Sodium (Protonix Tab*) 40 mg PO BID [facility] Last Admin: 09/13/19 09:50 Dose: 40 mg Pharmacy Profile Note (Scopolamine Patch Remove*) 1 note PATCH OFF .AFTER 72 HOURS [facility] Polyethylene Glycol/Electrolytes (Miralax*) 17 gm PO DAILY PRN PRN Reason: Constipation Potassium Chloride (Klor Con Er Tab*) 20 meq PO BID [facility] Last Admin: 09/13/19 09:51 Dose: 20 meq Scopolamine (Transderm-Scop 1.5 Mg Patch*) 1 patch TRANSDERM Q72H [facility] Last Admin: 09/12/19 11:48 Dose: 1 patch Senna (Senokot 8.6 Mg Tab*) 1 tab PO DAILY PRN PRN Reason: CONSTIPATION Terazosin HCl (Hytrin Cap*) 10 mg PO BEDTIME [facility] Last Admin: 09/12/19 20:19 Dose: 10 mg Vital Signs - 8 hr 09/13/19 09/13/19 11:09 15:50 Temperature 98.3 F 98.3 F Pulse Rate 79 75 Respiratory 17 18 Rate Blood Pressure 143/50 127/49 (mmHg) O2 Sat by Pulse 96 99 Oximetry Oxygen Devices in Use Now: Nasal Cannula Appearance: alert, well appearing, left eye deviates laterally Eyes: No Scleral Icterus Ears/Nose/Mouth/Throat: NL Teeth, Lips, Gums Neck: NL Appearance and Movements; NL JVP Respiratory: Symmetrical Chest Expansion and Respiratory Effort Cardiovascular: NL Sounds; No Murmurs; No JVD, RRR Abdominal: - - PD catheter site clean, abd soft nontender Lymphatic: No Cervical Adenopathy Extremities: No Edema, - - cryo unit in place, strength and sensation in tact b/ l Skin: No Rash or Ulcers Neurological: Alert and Oriented x 3 Result Diagrams: 09/13/19 05:30 09/13/19 05:30 Microbiology and Other Data: Microbiology 09/08/19 09:00 Gram Stain - Final Knee Assess/Plan/Problems-Billing Assessment: Ms. Moreira is a 69 yo female with a PMH significant for hypertension; hyperlipidemia; diabetes, insulin dependent; small bowel arteriovenous malformation; and end-stage renal disease, requiring peritoneal dialysis, who was admitted on 09/08/19 for an elective right total knee arthroplasty. Postop course was complicated by status epilepticus requiring intubation. - Patient Problems (1) Seizure Current Visit: Yes Status: Acute Code(s): R56.9 - UNSPECIFIED CONVULSIONS SNOMED Code(s): 83092090 Comment: MRI today showed temporal sclerosis, which may have been the provoking cause of seizures keppra started today per neurology (2) Status post total right knee replacement Current Visit: Yes Status: Acute Code(s): Z96.651 - PRESENCE OF RIGHT ARTIFICIAL KNEE JOINT SNOMED Code(s): 7802122602042 Comment: POD #5, management per ortho pain is controlled, walk today PT/OT (3) Anemia due to acute blood loss Current Visit: No Status: Acute Code(s): D62 - ACUTE POSTHEMORRHAGIC ANEMIA SNOMED Code(s): 213392882 Comment: POD #5 surgery s/p 2U PRBCs now stable (4) ESRD (end stage renal disease) Current Visit: No Status: Chronic Code(s): N18.6 - END STAGE RENAL DISEASE SNOMED Code(s): 50569048 Comment: Continue PD; Dr. Alexander following (5) History of CVA (cerebrovascular accident) Current Visit: Yes Status: Acute Code(s): Z86.73 - PRSNL HX OF TIA (TIA), AND CEREB INFRC W/O RESID DEFICITS SNOMED Code(s): 681341366 Comment: old lacunar infarct seen on MRI, was subclincial Status and Disposition: Plan for PMRU tomorrow
[2019-09-13] MEDS: Isosorbide Mononitrate ER TAB* 30 MG PO SCH (18:07)
[2019-09-13] MEDS: Terazosin CAP* 5 MG PO SCH (21:06)
[2019-09-14] MEDS: oxyCODONE TAB* 5 MG TAB PO PRN ×2 (00:11→09:11)
[2019-09-14] MEDS: Acetaminophen TAB* 325 MG PO SCH (05:32)
[2019-09-14 05:47] LABS: Hematocrit 24 % (35-47); Hemoglobin 8.1 g/dL (12.0-16.0); Mean Corpuscular HGB Conc 35 g/dL (31-36); Mean Corpuscular Hemoglobin 29 pg (27-31); Mean Corpuscular Volume 85 fL (80-97); Mean Platelet Volume 7.5 fL (7.4-10.4); Platelet Count 277 10^3/uL (150-450); Red Blood Count 2.79 10^6 /uL (3.70-4.87); Red Cell Distribution Width 18 % (10-15); White Blood Count 9.6 10^3/uL (3.5-10.8)
[2019-09-14 05:55] LABS: INR 1.94 (0.82-1.09)
[2019-09-14 06:04] LABS: BUN/Creatinine Ratio 6.7 (8-20); Calcium 7.5 mg/dL (8.6-10.3); EGFR African American 7.2 (>60); Magnesium 2.3 mg/dL (1.9-2.7); Potassium 4.2 mmol/L (3.5-5.0)
[2019-09-14 07:54] VITALS: BP 145/57
[2019-09-14] MEDS: Calcitriol CAP* 0.25 MCG PO SCH (08:10)
[2019-09-14] MEDS: Pantoprazole TAB * 40 MG TAB PO SCH (08:10)
[2019-09-14] MEDS: Labetalol TAB* 300 MG PO SCH (08:10)
[2019-09-14] MEDS: Vitamin THERAPEUTIC TAB PO SCH (08:10)
[2019-09-14] MEDS: levETIRAcetam TAB* 500 MG PO SCH (08:11)
[2019-09-14] MEDS: amLODIPine TAB* 5 MG PO SCH (08:11)
[2019-09-14] MEDS: cloNIDine TAB* 0.1 MG PO SCH (08:11)
[2019-09-14] MEDS: Potassium Chlor TAB* 20 MEQ TAB.ER PO SCH (08:11)
[2019-09-14] MEDS: Diltiazem CD CAP* 240 MG PO SCH (08:12)
--- NOTE | 2019-09-14 08:28 | PN ---
Hospitalist Progress Note Date of Service: 09/14/19 R IJ TLC removed in trendelenberg position. pressure held for 4 minutes without bleeding. no complications.
[2019-09-14] MEDS: Insulin LISPRO* 1 UNITS UNIT SUBCUT SCH (09:12)
[2019-09-14] MEDS: Mupirocin 2% OINT* TUBE TOPICAL SCH (09:46)
--- NOTE | 2019-09-14 12:35 | DS ---
CC: Dr. De León * DISCHARGE SUMMARY: DATE OF ADMISSION: 09/08/19 DATE OF DISCHARGE: 09/14/19 PRINCIPAL DISCHARGE DIAGNOSES: 1. Status post right total knee arthroplasty. 2. New onset seizures. 3. Acute on chronic anemia. 4. Type 2 diabetes, complicated by hypoglycemia. SECONDARY DISCHARGE DIAGNOSES: 1. End-stage renal disease, on peritoneal dialysis. 2. Proptosis. 3. 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 4. Old lacunar infarct. MEDICATIONS FOR DISCHARGE: 1. Clonidine 0.3 mg t.i.d. 2. Amlodipine 10 mg daily. 3. Labetalol 300 mg b.i.d. 4. Lorazepam 0.5 mg b.i.d. p.r.n. anxiety. 5. Terazosin 10 mg q.h.s. 6. Tylenol 650 q.4 p.r.n. pain. 7. Imdur 30 mg q.h.s. 8. Diltiazem CD 240 mg daily. 9. Multivitamin 1 tab daily. 10. NovoLog sliding scale. 11. Omeprazole 20 mg b.i.d. 12. Calcitriol 0.25 mcg daily. 13. Bisacodyl 10 mg suppository p.r. daily p.r.n. constipation. 14. Lactulose 30 mL b.i.d. p.r.n. constipation. 15. Keppra 500 mg daily. 16. Percocet 2 tabs q.4 p.r.n. pain. 17. MiraLAX 17 g daily p.r.n. constipation. 18. KCl 20 mEq b.i.d. 19. Warfarin 3 mg daily. PHYSICAL EXAMINATION: Temperature 97.7, heart rate 79, respiratory rate 17, pulse ox 96% on room air, blood pressure 145/57. General: Alert, well- appearing female, in no distress, resting comfortably in bed. HEENT: Her left eye deviates laterally, but her extraocular muscles are intact with intention. Oral mucosa is moist. Neck: No adenopathy. Her EJs are distended. Her right IJ triple lumen catheter was recently removed and there is a bandage over it without blood. Chest: She is in a regular rate and rhythm. Her lungs are clear bilaterally. Abdomen has a peritoneal dialysis catheter present and it is clean and her abdomen is soft and nondistended. Extremities: A Cryo unit is present on her right knee. She is able to move her hips with full strength and her sensation is intact with no edema. PERTINENT IMAGING FROM THIS ADMISSION: A brain MRI on 09/13/19 showed elevated T2/FLAIR signal in the periventricular and subcortical white matter with a chronic lacunar infarct of the left parasagittal shon consistent with chronic small vessel ischemic change. There is elevated T2/FLAIR signal in the right mesial temporal lobe with associated volume loss suggestive of mesial temporal sclerosis in the correct clinical setting, bilateral proptosis, small bilateral mastoid effusions. An addendum was then added, which says punctuate foci of susceptibility artifact within the cerebral hemispheres bilaterally, suggestive of chronic microhemorrhage in the setting of chronic uncontrolled hypertension. HOSPITAL COURSE BY PROBLEM: 1. Right total knee arthroplasty. Kristal was electively taken to the operating room with Dr. Jarvis on 09/08/19 for a right total knee arthroplasty for right severe degenerative osteoarthritis of the knee. She was noted to have severe loss of cartilage in all three compartments intraoperatively. The operation was uncomplicated and she returned to the floor. She had some postoperative nausea and vomiting as well as postop complications below. Ultimately for DVT prophylaxis, she was started on warfarin. Her INR will need to continue to be trended. I suggest her goal INR be lower than usual with a goal of 2 to 2.5 due to chronic microhemorrhages as discussed below. She is being transferred to [facility] for continued rehab. 2. Seizures. Ms. Moreira did not have a history of seizure disorder; however, on the morning of 09/09/19, she was noted to have generalized tonic-clonic seizures with some concern for status epilepticus as her postictal state was notable for significant apnea. She was transferred to the ICU and intubated and followed closely by Neurology. Stat CT and CTA did not show any bleed or acute stroke. Of note, she did have approximately 31% stenosis of the right internal carotid artery, but no other significant stenosis. Her EEG on the same day when she was intubated and on propofol showed no epileptiform potentials or focal abnormalities. She was started on Keppra and she was extubated the following day on 09/10/19 and had no further seizure activity. Ultimately, an MRI was performed, which showed temporal mesial sclerosis, which was thought to possibly be the cause of seizure disorder and her threshold was lower by recent surgery and anesthesia, so she was continued on Keppra and Neurology recommends continuing this lifelong. She was educated on seizure disorders and that she may not drive for 6 months. Avoid baths, height, swimming alone, open flames, etc. She will need neurology followup with Dr. Bull in 4 to 6 weeks. She is due for Keppra level this Thursday. 3. Acute on chronic anemia likely related to acute blood loss in the operating room on top of chronic blood loss due to a bowel arteriovenous malformation as well as chronic kidney disease. She did receive 2 units of packed red blood cells for postoperative anemia and her hemoglobin has remained stable since then. 4. Type 2 diabetes with hypoglycemia. She had several episodes of hypoglycemia during this admission postoperatively. On further questioning, she admitted that she does not consistently take her Lantus at home and likely takes it about once a week. I discontinued her Lantus altogether. Yesterday was the first day she did not get Lantus and her fasting blood sugar this morning is only 75. As her strength improves and she begins to eat more, she may need a low dose of Lantus; however, at this time I recommend continuing just her sliding scale. Her A1c is 8.4, so certainly not at goal and I suspect she may need a low dose of Lantus at discharge, but not while she is recovering. 5. Proptosis, this was incidentally noted on MRI. Her TSH was within normal limits. She should follow up with Ophthalmology at discharge. 6. Chronic microhemorrhages, also incidentally noted on MRI. Based on this finding, we have discussed anticoagulation with Orthopedics, Neurology and weighed the risks and benefits of DVT prophylaxis and she is at a very high risk for DVT postoperatively. So, we have agreed to continue the warfarin for DVT prophylaxis, but aim for an INR goal of 2 to 2.5 instead of 2 to 3 and she also needs adequate blood pressure control, which has been well managed with dialysis and her home antihypertensives. 7. Old lacunar infarct. This was also incidentally found on MRI. After she completes her course of DVT prophylaxis, I would consider adding a baby aspirin. 8. End-stage renal disease. She is on peritoneal dialysis. She is followed by Dr. Alexander and this should continue in rehab. DISPOSITION: Ms. Moreira is being discharged to [facility] on 09/14/19. She will need followup as outlined above. Of note, she should have daily INRs until her INR stabilizes in the range of 2 to 2.5. She is also due for a Keppra level on Thursday. She will need to close follow up with Nephrology and Neurology. CONDITION AT THE TIME OF DISCHARGE: Stable. [id number]/[facility] #: [id number] MTDD
== END 2019-09-14 09:35 | DRG 469 ==
LOC: AA 09-08 06:26 → SSU 09-08 12:53 → ICU 09-09 12:17 → SSU 09-12 11:00
PROVIDERS: ADMIT Orthopaedic Surgery Adult Reconstructive Orthopaedic Surgery; ATTEND Internal Medicine
PROC: 0SRC069 Replacement of Right Knee Joint with Oxidized Zirconium on Polyethylene Synthetic Substitute, Cemented, Open Approach (ICD-10-PCS; 2019-09-08)
PROC: 4A00X4Z Measurement of Central Nervous Electrical Activity, External Approach (ICD-10-PCS; 2019-09-09)
PROC: 5A1935Z Respiratory Ventilation, Less than 24 Consecutive Hours (ICD-10-PCS; 2019-09-09)
PROC: 0BH17EZ Insertion of Endotracheal Airway into Trachea, Via Natural or Artificial Opening (ICD-10-PCS; 2019-09-09)
PROC: 05HN33Z Insertion of Infusion Device into Left Internal Jugular Vein, Percutaneous Approach (ICD-10-PCS; 2019-09-09)
PROC: B544ZZA Ultrasonography of Left Jugular Veins, Guidance (ICD-10-PCS; 2019-09-09)
PROC: 05HM33Z Insertion of Infusion Device into Right Internal Jugular Vein, Percutaneous Approach (ICD-10-PCS; 2019-09-09)
PROC: B543ZZA Ultrasonography of Right Jugular Veins, Guidance (ICD-10-PCS; 2019-09-09)
PROC: 30233N1 Transfusion of Nonautologous Red Blood Cells into Peripheral Vein, Percutaneous Approach (ICD-10-PCS; 2019-09-09)
PROC: 3E1M39Z Irrigation of Peritoneal Cavity using Dialysate, Percutaneous Approach (ICD-10-PCS; principal; 2019-09-11)
DX: M17.11 Unilateral primary osteoarthritis, right knee (principal); N18.6 End stage renal disease; K55.21 Angiodysplasia of colon with hemorrhage; J96.01 Acute respiratory failure with hypoxia; I31.3 Pericardial effusion (noninflammatory); I50.32 Chronic diastolic (congestive) heart failure; I13.2 Hypertensive heart and chronic kidney disease with heart failure and with stage 5 chronic kidney disease, or end stage renal disease; D62 Acute posthemorrhagic anemia; E87.2 Acidosis; E11.22 Type 2 diabetes mellitus with diabetic chronic kidney disease; E11.649 Type 2 diabetes mellitus with hypoglycemia without coma; H05.20 Unspecified exophthalmos; R11.2 Nausea with vomiting, unspecified; K21.9 Gastro-esophageal reflux disease without esophagitis; Z96.652 Presence of left artificial knee joint; M25.461 Effusion, right knee; M21.061 Valgus deformity, not elsewhere classified, right knee; I34.0 Nonrheumatic mitral (valve) insufficiency; D63.1 Anemia in chronic kidney disease; M25.761 Osteophyte, right knee; E78.5 Hyperlipidemia, unspecified; D50.9 Iron deficiency anemia, unspecified; K59.00 Constipation, unspecified; E87.6 Hypokalemia; G40.901 Epilepsy, unspecified, not intractable, with status epilepticus; E21.3 Hyperparathyroidism, unspecified; Z99.2 Dependence on renal dialysis; Z79.899 Other long term (current) drug therapy; Z79.01 Long term (current) use of anticoagulants; Z79.4 Long term (current) use of insulin; Z86.73 Personal history of transient ischemic attack (TIA), and cerebral infarction without residual deficits; Z85.3 Personal history of malignant neoplasm of breast; Z88.8 Allergy status to other drugs, medicaments and biological substances; Z86.19 Personal history of other infectious and parasitic diseases; Z87.891 Personal history of nicotine dependence
CPT/HCPCS: 36415; 36600; 70450; 70496; 70498; 70551; 71045; 74018; 80048; 80053; 82140; 82330; 82565; 82803; 82947; 83036; 83605; 83735; 84100; 84443; 84520; 85014; 85018; 85025; 85027; 85049; 85060; 85610; 85730; 86078; 86850; 86900; 86901; 86922; 87070; 87073; 87102; 87116; 87205; 87206; 87641; 88305; 88311; 90945; 93005; 94002; 95819; A9270-GY; C1776; G0257; J0690; J1100; J1644; J1815; J1885; J1953; J2060; J2250; J2270; J2405; J2543; J2704; J2710; J2795; J3010; J3480; P9040; Q0164; Q5106; Q9967

== ENCOUNTER 2019-09-14 08:54 | Inpatient (IN) | payer MEDICARE ==
[2019-09-14] MEDS ORDERED: Dextrose 50% Syringe 50 ML* 25 GM/50 ML SYRINGE IV PUSH PRN (13:05)
[2019-09-14] MEDS: Acetaminophen TAB* 325 MG PO PRN (15:30)
[2019-09-14] MEDS: cloNIDine TAB* 0.1 MG PO SCH ×2 (15:30→21:06)
[2019-09-14] MEDS: Insulin LISPRO* 1 UNITS UNIT SUBCUT SCH ×2 (17:29→21:07)
[2019-09-14] MEDS: Isosorbide Mononitrate ER TAB* 30 MG PO SCH (18:45)
[2019-09-14] MEDS ORDERED: Warfarin TAB(*) 2.5 MG PO ONE (20:00)
[2019-09-14] MEDS: Docusate CAP* 100 MG PO SCH (20:14)
[2019-09-14] MEDS ORDERED: Heparin VIAL(*) 5000 UNITS/ML VIAL (FIVE THOUSAND) SUBCUT SCH (21:00)
[2019-09-14] MEDS ORDERED: Potassium Chlor TAB* 20 MEQ TAB.ER PO SCH (21:00)
[2019-09-14] MEDS ORDERED: Warfarin TAB(*) 1 MG PO ONE (21:00)
[2019-09-14] MEDS: Labetalol TAB* 300 MG PO SCH (21:07)
[2019-09-14] MEDS: Terazosin CAP* 5 MG PO SCH (21:07)
[2019-09-14] MEDS: Pantoprazole TAB * 40 MG TAB PO SCH (21:07)
--- NOTE | 2019-09-14 21:43 | HP ---
ADMISSION HISTORY AND PHYSICAL: DATE OF ADMISSION: 09/14/19. REASON FOR ADMISSION: The patient is admitted after she had a right total knee replacement; her postop course was complicated by seizures which required intubation. HISTORY OF PRESENT ILLNESS: Kristal Moreira is a 69-year-old female. She has a medical history significant for diabetes as well as end-stage renal disease. She does peritoneal dialysis. She normally sees Dr. Doyle as her cytotechnologist/histotechnologist. She has hyperlipidemia, hypertension, and small bowel AV malformation. The patient had a longstanding history of right knee pain. She had difficulty ambulating. She saw Dr. Lisa Jarvis. X-rays were taken which showed end stage osteoarthritis of the knee. She was admitted to [facility] on 09/08/19 and underwent a right total knee replacement. On the morning of , the patient had a tonic-clonic seizure activity. A CAT team was called and the patient was intubated and transferred to the intensive care unit. The patient had to be transfused after her hemoglobin dropped to 6.6. The patient was seen by the neurologist, Dr. Carter who recommended starting the patient on Keppra. The patient was able to be extubated. She had an EEG that did not show any epileptiform activity. She had an MRI of her brain. The patient had been on tramadol for pain control and this was discontinued. The patient was started on Coumadin for DVT prophylaxis. The patient gradually improved. The patient otherwise continued to improve. The patient was hypokalemic on the acute medical service and was given potassium supplementation. This reversed itself and her potassium today was 4.2. The patient was felt to have physical therapy and occupational therapy needs. She is now being admitted for inpatient rehab so that she might return to independent living. PAST MEDICAL HISTORY: Includes the aforementioned diabetes as well as endstage renal disease, on peritoneal dialysis. She has a history of hypertension. 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 She had hepatitis C. She has had right breast cancer. She has diabetes, hyperlipidemia. ALLERGIES: The patient has allergies listed to ENALAPRIL, DILTIAZEM, HYDRALAZINE and VERAPAMIL. CURRENT MEDICATIONS: Include: 1. Norvasc. 2. Rocaltrol. 3. Catapres. 4. . 5. Imdur. 6. Trandate. 7. Keppra. 8. Percocet for pain control. 9. Hytrin. 10. She was on potassium too and I discontinued it. SOCIAL HISTORY: She is a nonsmoker, nondrinker. Lives in a 1-bedroom apartment in the apartment complex across from the hospital. It is a 1 level apartment. FAMILY HISTORY: Noncontributory. REVIEW OF SYSTEMS: No current shortness of breath or chest pain. PHYSICAL EXAMINATION VITAL SIGNS: The patient's temperature is 98.2, blood pressure is 133/46, pulse is 63, respirations 18. HEENT: Her extraocular movements appear to be intact. Tongue is midline. NECK: Supple. LUNGS: Sounded clear to auscultation bilaterally. HEART: Heart sounds are regular. S1, S2 are audible. ABDOMEN: Soft and nontender. EXTREMITIES: Her right knee has a wound which is clean, dry and intact. NEUROLOGIC: The patient is awake, alert and oriented. Sensation may be diminished in her feet. Muscle strength appeared to be about 5/5 except the right leg quadriceps which were about 3/5 secondary to pain. Her functional exam, she transfers with min assist. ASSESSMENT: Right total knee replacement. Her postoperative course was complicated by a seizure. She does have a history of endstage renal disease and is on peritoneal dialysis. PLAN: We are going to integrate her into a comprehensive and therapeutic rehab program with the following goals: 1. Physical Therapy will see the patient. They are going to work on functional transfer training and ambulation training with a walker. 2. Occupational Therapy will see the patient, work on her activities of daily living including toileting and toilet transfers. 3. Coumadin for DVT prophylaxis. 4. Adequate analgesia. 5. We will watch her hemoglobin and hematocrit while she is on Coumadin. 6. For her hypertension, we are going to continue her Catapres, Norvasc, her Cardizem and Imdur and labetalol. 7. For seizure disorder, we are going to continue Keppra. 8. For endstage renal disease, we will continue peritoneal dialysis and consult Nephrology as needed. 9. Continue Protonix twice a day for her history of intestinal AVM. 10. [employer] will be closely involved to make sure that any services and equipment that patient requires are in place prior to discharge. 11. Family training as appropriate. 12. Home with appropriate services. ESTIMATED LENGTH OF STAY: 10 days. [id number]/[facility] #: [id number] ALLIE
[2019-09-15] MEDS: Pantoprazole TAB * 40 MG TAB PO SCH ×2 (08:15→22:17)
[2019-09-15] MEDS: Docusate CAP* 100 MG PO SCH ×2 (08:15→22:17)
[2019-09-15] MEDS: Insulin LISPRO* 1 UNITS UNIT SUBCUT SCH ×4 (08:15→22:27)
[2019-09-15] MEDS: levETIRAcetam TAB* 500 MG PO SCH (08:15)
[2019-09-15] MEDS: cloNIDine TAB* 0.1 MG PO SCH ×3 (08:15→22:17)
[2019-09-15] MEDS: Calcitriol CAP* 0.25 MCG PO SCH (08:15)
[2019-09-15] MEDS: amLODIPine TAB* 5 MG PO SCH (08:15)
[2019-09-15] MEDS: Diltiazem CD CAP* 240 MG PO SCH (08:17)
[2019-09-15] MEDS: Acetaminophen TAB* 325 MG PO PRN (09:47)
[2019-09-15] MEDS: Labetalol TAB* 300 MG PO SCH ×2 (09:47→22:17)
[2019-09-15] MEDS: Mupirocin 2% OINT* TUBE TOPICAL SCH (09:49)
[2019-09-15] MEDS: oxyCODONE/Acetamin 5/325 MG* TAB PO PRN ×2 (14:08→15:10)
--- NOTE | 2019-09-15 17:18 | PN ---
Progress Note Date of Service: 09/15/19 Note: ELDA COTTO was visited. Therapy notes read and reviewed. She has a bit of pain but otherwise is ok. Her INR is 4.0 today. Will hold coumadin. Blood sugars ok. Tolerated therapy. Current Medications: Active Medications Generic Name Dose Route Start Last Admin Trade Name Freq PRN Reason Stop Dose Admin Acetaminophen 650 mg 09/14/19 11:53 09/15/19 09:47 Tylenol Tab* PO 650 mg Q6H PRN Administration MILD PAIN or TEMP > 100.4 Amlodipine Besylate 10 mg 09/15/19 09:00 09/15/19 08:15 Norvasc Tab* PO 10 mg DAILY NEVA Administration Calcitriol 0.25 mcg 09/15/19 09:00 09/15/19 08:15 Rocaltrol Cap* PO 0.25 mcg DAILY NEVA Administration Clonidine HCl 0.3 mg 09/14/19 14:00 09/15/19 14:08 Catapres Tab* PO 0.3 mg TID NEVA Administration Dextrose 12.5 gm 09/14/19 13:05 D50w Syringe 50 Ml* IV PUSH .FOR FS < 60 - SS PRN FS < 60 Diltiazem HCl 240 mg 09/15/19 09:00 09/15/19 08:17 Cardizem Cd Cap* PO 240 mg DAILY NEVA Administration Docusate Sodium 100 mg 09/14/19 21:00 09/15/19 08:15 Colace Cap* PO 100 mg BID NEVA Administration Insulin Human Lispro 0 - 12 units 09/14/19 16:30 09/15/19 17:08 Humalog* SUBCUT Not Given ACHS [facility] Protocol Isosorbide Mononitrate 30 mg 09/14/19 18:00 09/14/19 18:45 Imdur Er Tab* PO 30 mg 1800 NEVA Administration Labetalol HCl 300 mg 09/14/19 21:00 09/15/19 09:47 Trandate Tab* PO 300 mg BID NEVA Administration Levetiracetam 500 mg 09/15/19 09:00 09/15/19 08:15 Keppra Tab* PO 500 mg DAILY NEVA Administration Mupirocin 1 applic 09/15/19 09:00 09/15/19 09:49 Bactroban 2 % Oint* TOPICAL Not Given DAILY NEVA Oxycodone/Acetaminophen 1 tab 09/14/19 12:05 09/15/19 15:10 Percocet 5/325 Tab* PO 1 tab Q4H PRN Administration PAIN - MODERATE Oxycodone/Acetaminophen 2 tab 09/14/19 12:06 Percocet 5/325 Tab* PO Q4H PRN PAIN - SEVERE Pantoprazole Sodium 40 mg 09/14/19 21:00 09/15/19 08:15 Protonix Tab* PO 40 mg BID NEVA Administration Senna 2 tab 09/14/19 11:53 Senokot 8.6 Mg Tab* PO BEDTIME PRN CONSTIPATION Terazosin HCl 10 mg 09/14/19 21:00 09/14/19 21:07 Hytrin Cap* PO 10 mg BEDTIME NEVA Administration Vital Signs: Vital Signs Temp Pulse Resp BP Pulse Ox 98.4 F 55 16 123/42 100 09/15/19 15:53 09/15/19 15:53 09/15/19 17:09 09/15/19 15:53 09/15/19 15:53 Lab Results: Laboratory Results - last 24 hr 09/14/19 09/14/19 09/14/19 12:09 16:39 20:19 INR (Anticoag Therapy) POC Glucose (mg/dL) 74 180 H 202 H 09/15/19 09/15/19 09/15/19 03:42 05:55 07:30 INR (Anticoag Therapy) 4.00 H POC Glucose (mg/dL) 188 H 182 H 09/15/19 12:06 INR (Anticoag Therapy) POC Glucose (mg/dL) 206 H Exam: GENERAL: No distress, looks older than stated age LUNGS: Clear bilaterally HEART: Regular rhythm ABDOMEN: Soft, +BS EXTREMITIES: right knee wound C/D/I NEUROLOGIC: Sensation diminished in feet. Motor 5/5 except RLE due to pain Assessment/Plan: 1. Right TKA: WBAT RLE. PT/OT 2. ESRD: PD. Rocaltrol 3. Seizures: Keppra. 4. Diabetes: SSI 5. HTN: Catapres/Cardizem/Imdur/Labetalol/Hytrin 6. Intestinal AVM: Protonix BID 7: DVT Prophylaxis: Coumadin on hold due to supartherapeutic INR 09/15/19 17:15
[2019-09-15] MEDS: Isosorbide Mononitrate ER TAB* 30 MG PO SCH (18:41)
[2019-09-15] MEDS: Terazosin CAP* 5 MG PO SCH (22:17)
[2019-09-16 06:47] LABS: Hematocrit 25 % (35-47); Hemoglobin 8.7 g/dL (12.0-16.0); Mean Corpuscular HGB Conc 34 g/dL (31-36); Mean Corpuscular Hemoglobin 29 pg (27-31); Mean Corpuscular Volume 85 fL (80-97); Mean Platelet Volume 7.4 fL (7.4-10.4); Platelet Count 356 10^3/uL (150-450); Red Blood Count 2.97 10^6 /uL (3.70-4.87); Red Cell Distribution Width 18 % (10-15); White Blood Count 9.5 10^3/uL (3.5-10.8)
[2019-09-16 06:52] LABS: INR 2.7 (0.82-1.09)
[2019-09-16 07:03] LABS: ALT < 3 U/L (7-52); AST 16 U/L (13-39); Albumin 2.5 g/dL (3.2-5.2); Albumin/Globulin Ratio 0.8 (1-3); Alkaline Phosphatase 144 U/L (34-104); Anion Gap 12 mmol/L (2-11); BUN/Creatinine Ratio 6.8 (8-20); Blood Urea Nitrogen 50 mg/dL (6-24); CO2 Carbon Dioxide 24 mmol/L (22-32); Calcium 8.1 mg/dL (8.6-10.3); Chloride 95 mmol/L (101-111); EGFR African American 6.7 (>60); EGFR Non-African American 5.5 (>60); Glucose 169 mg/dL (70-100); Potassium 4.7 mmol/L (3.5-5.0); Sodium 131 mmol/L (135-145); Total Protein 5.5 g/dL (6.4-8.9)
[2019-09-16 07:20] LABS: ABS Basophils 0.1 10^3/ul (0-0.2); ABS Eosinophils 0.2 10^3/ul (0-0.6); ABS Lymphocytes 1.2 10^3/ul (1.0-4.8); ABS Monocytes 1.5 10^3/ul (0-0.8); ABS Neutrophils 6.5 10^3/ul (1.5-7.7); Eosinophil % 2.1 %; Nucleated Red Blood Cells % 0.1
[2019-09-16] MEDS: Insulin LISPRO* 1 UNITS UNIT SUBCUT SCH ×4 (08:32→20:46)
[2019-09-16] MEDS: levETIRAcetam TAB* 500 MG PO SCH (08:33)
[2019-09-16] MEDS: Pantoprazole TAB * 40 MG TAB PO SCH ×2 (08:33→21:34)
[2019-09-16] MEDS: Calcitriol CAP* 0.25 MCG PO SCH (08:33)
[2019-09-16] MEDS: Labetalol TAB* 300 MG PO SCH ×2 (08:33→21:34)
[2019-09-16] MEDS: cloNIDine TAB* 0.1 MG PO SCH ×3 (08:33→21:34)
[2019-09-16] MEDS: Diltiazem CD CAP* 240 MG PO SCH (08:33)
[2019-09-16] MEDS: Mupirocin 2% OINT* TUBE TOPICAL SCH (08:33)
[2019-09-16] MEDS: Docusate CAP* 100 MG PO SCH ×2 (08:33→21:34)
[2019-09-16] MEDS: amLODIPine TAB* 5 MG PO SCH (08:33)
[2019-09-16] MEDS: oxyCODONE/Acetamin 5/325 MG* TAB PO PRN ×2 (08:38→13:09)
[2019-09-16] MEDS ORDERED: EPOETIN ALFA-EPBX * 10,000 UNIT/ML VIAL SUBCUT ONE (09:00)
[2019-09-16] MEDS ORDERED: EPOETIN ALFA-EPBX * 3,000 UNIT/ML VIAL SUBCUT ONE (09:00)
[2019-09-16] MEDS: Acetaminophen TAB* 325 MG PO PRN (11:25)
--- NOTE | 2019-09-16 12:46 | PMRUTEAM ---
PMRU: Team Meeting Current Status: Physical Therapy: Current Status Current Rolling Status Partial/Moderate Current Supine <-> Sit Status Partial/Moderate Current Sit <-> Stand Status Supervision/Touching Current Bed <-> Chair Status Partial/Moderate Transfer/Bed Mobility Rolling Walker Recommended Devices Current Picking Up Object Not attempted Status Current Car Transfer Status Not attempted Current Ambulation Assistance Partial/Moderate Status Ambulation Assistive Device Rolling Walker Ambulation Conditions Two or More Turns Current Ambulation Distance 20 Current Wheelchair Propulsion Not Applicable Ability Status Current Stair Climbing Status Not attempted Current Curb Assistance Status Not attempted Occupational Therapy: Current Status Current Upper Body Dressing Setup or Clean-up Assist Status Current Lower Body Dressing Supervision/Touching Status Current Footwear Status Partial/Moderate Current Bathing Status Partial/Moderate Current Grooming Status Setup or Clean-up Assist Current Toileting Status Partial/Moderate Current Toilet Transfer Status Partial/Moderate Current Eating Status Independent Nursing: Current Status Skin Deviations [Right Other Anterior Neck] Skin Deviations [Left 4th Toe] Other Skin Deviations [Right Knee] Incision Skin Deviation Description [ drsg to CVC stab site in place Right Anterior Neck] Skin Deviation Description [ bandaid for irregular toenail Left 4th Toe] Skin Deviation Description [ [employer] with sutures Right Knee] Rec Therapy: Current Status Summary of Assessment and Pt was pleasant and cooperative during Clinical Impression conversation about leisure interests and involvement. Pt reports that she enjoys her life and feels very fulfilled in the activities she participates in. Pt was open to continued leisure visits and pet therapy. Pt expressed interest in having crossword puzzles available, which were provided to her. Treatment Goals Pt will engage in leisure activities while on the unit as tolerated Treatment Plan Provide recreation therapy services and encourage involvement Social Work: Current Status Discharge Plan return home with home care svs and support from friends Potential for Family Training TBD - no family in the area Anticipated Discharge Home Destination Discharge With home care svs and support from friends Goals: Physical Therapy: Goals Goals to Be Accomplished in ( 10 Days) Goal: Rolling Assistance Independent Goal Supine <-> Sit Status Independent Goal Sit <-> Stand Status Independent Goal Bed <-> Chair Status Independent Transfer/Bed Mobility Rolling Walker Recommended Devices Goal: Picking Up Object Independent Goal: Car Transfer Status Setup or Clean-up Assist Goal: Ambulation Assistance Independent Ambulation Assistive Devices Rolling Walker Ambulation Distance (ft) 150 Goal: Wheelchair Propulsion Not Applicable Ability Goal: Stairs Assistance Independent Stairs Recommended Devices Two Rails Number of Stairs 5 Goal: Curb Assistance Independent Occupational Therapy: Goals Goals to be Completed in (Days 5-7 days ) Goal Upper Body Dressing Independent Routine Goal Lower Body Dressing Independent Routine Goal Footwear Status Independent Goal Bathing Routine (OT) Independent Goal Grooming Routine Independent Goal Toilet Hygiene and Independent Clothing Management Routine Goal Toilet Transfer Routine Independent Goal Functional Transfers for Independent ADL Goal Feeding Routine Independent Goal Light Housekeeping Tasks Independent Social Work: Goals Discharge Plan return home with home care svs and support from friends Potential for Family Training TBD - no family in the area Anticipated Discharge Home Destination Discharge With home care svs and support from friends Care Plan: Care Plan ADL's - Improve/Maintain Start: 09/14/19 16:05 Freq: [id number] Status: Active Target: 09/15/19 Protocol: Activity Type Activity Date Activity User E-Sign Co-Sign Detail Recorded Client Recorded Date Recorded By Document 09/15/19 12:21 [id number] 09/15/19 12:21 [id number] 09/15/19 12:21 PMRU Outcome: ADL's/ADL Transfers Orders/Interventions Occupational Therapy Evaluation & Treatment Device Yes Address Deficits Secondary To: R TKA Patient to receive OT 5x/wk for 60-120 Therex min/day Self Care Management Group Therapy UE/LE ADL's with Assist Yes: independent ADL Transfers with Assist Yes: independent Toileting: Transfers,Clothing Management Yes: ,Hygeine w/Assist independent Light Kitchen/Laundry w/Assist Yes: independent Other Outcome/Goals Pt participated well in treatment session, AE training begun for donning/ doffing sock during this session and pt able to use well with cues. Progression Toward Outcome/Goals Progressing Cardiovascular- Improve/Maintain Start: 09/14/19 10:16 Freq: [id number] Status: Active Target: 09/19/19 Protocol: Activity Type Activity Date Activity User E-Sign Co-Sign Detail Recorded Client Recorded Date Recorded By Document 09/16/19 07:00 [id number] [email or web address] 09/16/19 08:17 [id number] 09/16/19 07:00 PMRU Outcome: Cardiovascular Vital Signs q Shift for 48hrs Then BID Yes Daily Weight Ordered No Current Cardiovascular Outcome/Goal Maintain/ Achieve Baseline HR, BP , Perfusion Improve HR Within Prescribed Parameters Maintain/ Improve Perfusion Maintain/ Achieve Hemodynamic Stability Free of Abnormal Cardiac Symptoms Progression Toward Outcome/Goal Progressing DVT Prophylaxis- Improve/Maintain Start: 09/14/19 10:16 Freq: [id number] Status: Active Target: 09/21/19 Protocol: Activity Type Activity Date Activity User E-Sign Co-Sign Detail Recorded Client Recorded Date Recorded By Document 09/16/19 07:00 [id number] [email or web address] 09/16/19 08:17 [id number] 09/16/19 07:00 PMRU Outcome: DVT Prophylaxis Current DVT Outcome/Goals Remains Free of DVT Complies with DVT Prophylaxis /Treatment Demonstrates Knowledge of DVT Prevention/ Treatment TEDS Stockings on Every AM, Off at HS Progression Toward Outcome/Goals Progressing Discharge Planning - Improve/Maintain Start: 09/14/19 10:16 Freq: [id number] Status: Active Target: 09/19/19 Protocol: Activity Type Activity Date Activity User E-Sign Co-Sign Detail Recorded Client Recorded Date Recorded By Document 09/16/19 07:00 [id number] [email or web address] 09/16/19 08:17 [id number] 09/16/19 07:00 PMRU Outcome: Discharge Planning Update Patient Family No: no family present at time of admit Current Discharge Planning Outcome/Goals Demonstrates Understanding of Discharge Plan Homecare Referral - See Comment Progression Toward Outcome/Goals Progressing Education-Improve/Maintain Start: 09/14/19 10:16 Freq: [id number] Status: Active Target: 09/21/19 Protocol: Activity Type Activity Date Activity User E-Sign Co-Sign Detail Recorded Client Recorded Date Recorded By Document 09/16/19 07:00 [id number] [email or web address] 09/16/19 08:17 [id number] 09/16/19 07:00 PMRU Outcome: Education Current Education Outcome/Goals Demonstrate/ Verbalize Understanding of Written Discharge Instructions Demonstrates Skills Encourage Questions Progression Toward Outcome/Goals Progressing /GI-Improve/Maintain Start: 09/14/19 10:16 Freq: [id number] Status: Active Target: 09/21/19 Protocol: Activity Type Activity Date Activity User E-Sign Co-Sign Detail Recorded Client Recorded Date Recorded By Document 09/16/19 07:00 [id number] [email or web address] 09/16/19 08:17 [id number] 09/16/19 07:00 PMRU Outcome: Genitourinary/ Gastrointestinal Current Gastrointestinal Outcome/Goals Maintain/ Achieve Bowel Regularity in Accordance with Pt's Baseline Remain Free of Emesis Prevent Constipation Bowel Regularity at Home Laxatives as Ordered Progression Toward Outcome/Goals Progressing Current Genitourinary Outcome/Goals Maintain/ Achieve Urinary Continence Maintain/ Achieve Adequate Urinary Output Remain Free of Hospital- Acquired UTI Other Genitourinary Outcome/Goals peritoneal dialysis in progress Progression Toward Outcome/Goals Progressing Medication Administration Start: 09/14/19 10:16 Freq: DAILY@699,0 Status: Active Target: 09/21/19 Protocol: Activity Type Activity Date Activity User E-Sign Co-Sign Detail Recorded Client Recorded Date Recorded By Document 09/16/19 07:00 [id number] [email or web address] 09/16/19 08:17 [id number] 09/16/19 07:00 PMRU Outcome: Medication Administration Assess Patient Knowledge/Teach Med Yes Education for all Meds Current Motion Picture Critic Outcome/Goals Patient Independent with Medication Administration at Home Demonstrates Understanding Progression Towards Outcome/Goals Progressing Is Patient Going Home on Lovenox? No Metabolic Status- Improve/Maintain Start: 09/14/19 10:16 Freq: [id number] Status: Active Target: 09/21/19 Protocol: Activity Type Activity Date Activity User E-Sign Co-Sign Detail Recorded Client Recorded Date Recorded By Document 09/16/19 07:00 [id number] 09/16/19 08:17 [id number] 09/16/19 07:00 PMRU Outcome: Metabolic Status Have Fingersticks Been Ordered Yes Fingerstick Order Frequency AC & HS Current Metabolic Status Outcome/Goals Maintain/ Improve Metabolic Status Demonstrate Knowledge of Prevention/ Treatment of Metabolic Imbalances Progression Toward Outcome/Goals Progressing Mobility- Improve/Maintain Start: 09/14/19 18:36 Freq: DAILY@ Status: Active Target: 09/15/19 Protocol: Activity Type Activity Date Activity User E-Sign Co-Sign Detail Recorded Client Recorded Date Recorded By Document 09/14/19 18:36 [id number] [email or web address] 09/14/19 18:37 [id number] 09/14/19 18:36 PMRU Outcome: Mobility Physical Therapy Evaluation and Yes Treatment Activity OOB with Assistance Yes WBAT Yes Device Yes Assistance Yes Patient to be seen 5x/wk for 60-120 min/ Therex day for: Mobility Training Gait Training Balance Other Current Mobility Outcome/Goals Maintain/ Achieve Baseline Mobility Status Improve Mobility Status Demonstrates Proper Use of Assistive Devices Free from Complications of Immobility Progression Toward Outcome/Goals Goal Initiation Bed Mobility Yes: independent Transfers Yes: independnet with rolling walker Gait x ft Yes: independnet with rolling walker to 150 Up/Down Stairs Yes: independnet up/ down 5 stairs with 2 rails. Pain/Comfort- Improve/Maintain Start: 09/14/19 10:16 Freq: [id number] Status: Active Target: 09/21/19 Protocol: Activity Type Activity Date Activity User E-Sign Co-Sign Detail Recorded Client Recorded Date Recorded By Document 09/16/19 07:00 [id number] [email or web address] 09/16/19 08:17 [id number] 09/16/19 07:00 PMRU Outcome: Pain/Comfort Current Pain/Comfort Outcome/Goals Demonstrates Knowledge and Use of Available Comfort Measures Achieves Acceptable Comfort/Pain Level as Determined by Patient/Condit Maintain Comfort Level Allowing Patient to Fully Participate in Rehab Progression Toward Outcome/Goals Progressing Outcome/Goals Met Comment pt declined pain medication Rec Therapy- Improve/Maintain Start: 09/14/19 15:06 Freq: DAILY@ Status: Active Target: 09/20/19 Protocol: Activity Type Activity Date Activity User E-Sign Co-Sign Detail Recorded Client Recorded Date Recorded By Document 09/14/19 15:06 [id number] [email or web address] 09/14/19 15:06 [email or web address] 09/14/19 15:06 PMRU Outcome: Recreation Therapy Current Rec Ther Outcome/Goals Complete Rec Therapy Assessment Meet with Patient Regularly for Support Encourage Leisure Involvement Progression Toward Outcome/Goals Goal Initiation Safety- Improve/Maintain Start: 09/14/19 10:15 Freq: DAILY@ Status: Active Target: 09/21/19 Protocol: Activity Type Activity Date Activity User E-Sign Co-Sign Detail Recorded Client Recorded Date Recorded By Document 09/16/19 07:00 [id number] [email or web address] 09/16/19 08:17 [id number] 09/16/19 07:00 PMRU Outcome: Safety Current Safety Outcome/Goals Remain Free of Injury or Harm Cooperates with Safety Measures for Least Restrictive Environment Prevent Falls/ Injury Progression Toward Outcome/Goals Progressing Outcome/Goals Met Comment [email or web address] Skin- Improve/Maintain Start: 09/14/19 10:16 Freq: DAILY@[id number] Status: Active Target: 09/21/19 Protocol: Activity Type Activity Date Activity User E-Sign Co-Sign Detail Recorded Client Recorded Date Recorded By Document 09/16/19 07:00 [id number] [email or web address] 09/16/19 08:17 [id number] 09/16/19 07:00 PMRU Outcome: Skin Skin Risk Level No Risk Skin Orders Teach Patient Turn/Position q2hr While in Bed Current Skin Outcome/Goals Free from Pressure Injury Surgical Incisions Healing Progression Toward Outcome/Goals Progressing Outcome/Goals Met Comment lali francisco pillow - Interdisciplinary Staff Present Sign Installer/Social Work Staff Present: Melissa Weldon LMSW Nursing Staff Present: Missy Barbour RN OT Staff Present: Chely Ruvalcaba PT Staff Present: Nolan Denton STRE[employer] AND BUILDING DECORATOR Staff Present: Yoel Alba Medicine Note: Length of Stay: 7 days Anticipated Discharge Destination: Home Tentative Discharge Date: 09/23/2019 Discharged to: Home
--- NOTE | 2019-09-16 16:47 | PN ---
Progress Note Date of Service: 09/16/19 Note: ELDA COTTO was visited. Therapy notes read and reviewed. She was discussed in interdisciplinary plan of care rounds. She is doing okay but therapists a little worried about memory. INR down to 2.7 Current Medications: Active Medications Generic Name Dose Route Start Last Admin Trade Name Freq PRN Reason Stop Dose Admin Acetaminophen 650 mg 09/14/19 11:53 09/16/19 11:25 Tylenol Tab* PO 650 mg Q6H PRN Administration MILD PAIN or TEMP > 100.4 Amlodipine Besylate 10 mg 09/15/19 09:00 09/16/19 08:33 Norvasc Tab* PO 10 mg DAILY NEVA Administration Calcitriol 0.25 mcg 09/15/19 09:00 09/16/19 08:33 Rocaltrol Cap* PO 0.25 mcg DAILY NEVA Administration Clonidine HCl 0.3 mg 09/14/19 14:00 09/16/19 14:43 Catapres Tab* PO 0.3 mg TID NEVA Administration Dextrose 12.5 gm 09/14/19 13:05 D50w Syringe 50 Ml* IV PUSH .FOR FS < 60 - SS PRN FS < 60 Diltiazem HCl 240 mg 09/15/19 09:00 09/16/19 08:33 Cardizem Cd Cap* PO 240 mg DAILY NEVA Administration Docusate Sodium 100 mg 09/14/19 21:00 09/16/19 08:33 Colace Cap* PO 100 mg BID NEVA Administration Insulin Human Lispro 0 - 12 units 09/14/19 16:30 09/16/19 13:12 Humalog* SUBCUT 4 units ACHS NEVA Administration Protocol Isosorbide Mononitrate 30 mg 09/14/19 18:00 09/15/19 18:41 Imdur Er Tab* PO 30 mg 1800 NEVA Administration Labetalol HCl 300 mg 09/14/19 21:00 09/16/19 08:33 Trandate Tab* PO 300 mg BID NEVA Administration Levetiracetam 500 mg 09/15/19 09:00 09/16/19 08:33 Keppra Tab* PO 500 mg DAILY NEVA Administration Mupirocin 1 applic 09/15/19 09:00 09/16/19 08:33 Bactroban 2 % Oint* TOPICAL 1 applic DAILY NEVA Administration Oxycodone/Acetaminophen 1 tab 09/14/19 12:05 09/16/19 08:38 Percocet 5/325 Tab* PO 1 tab Q4H PRN Administration PAIN - MODERATE Oxycodone/Acetaminophen 2 tab 09/14/19 12:06 09/16/19 13:09 Percocet 5/325 Tab* PO 2 tab Q4H PRN Administration PAIN - SEVERE Pantoprazole Sodium 40 mg 09/14/19 21:00 09/16/19 08:33 Protonix Tab* PO 40 mg BID NEVA Administration Senna 2 tab 09/14/19 11:53 Senokot 8.6 Mg Tab* PO BEDTIME PRN CONSTIPATION Terazosin HCl 10 mg 09/14/19 21:00 09/15/19 22:17 Hytrin Cap* PO 10 mg BEDTIME NEVA Administration Warfarin Sodium 1 mg 09/16/19 17:00 Coumadin Tab(*) PO DAILY@1700 [facility] Protocol Vital Signs: Vital Signs Temp Pulse Resp BP Pulse Ox 97.6 F 58 16 136/43 100 09/16/19 15:54 09/16/19 15:54 09/16/19 16:41 09/16/19 15:54 09/16/19 16:34 Lab Results: Laboratory Results - last 24 hr 09/15/19 09/15/19 09/16/19 17:00 21:13 06:38 WBC 9.5 RBC 2.97 L Hgb 8.7 L Hct 25 L MCV 85 MCH 29 MCHC 34 RDW 18 H Plt Count 356 MPV 7.4 Neut % (Auto) 68.1 Lymph % (Auto) 13.0 [place] % (Auto) 16.1 Eos % (Auto) 2.1 Baso % (Auto) 0.7 Absolute Neuts (auto) 6.5 Absolute Lymphs (auto) 1.2 Absolute Monos (auto) 1.5 H Absolute Eos (auto) 0.2 Absolute Basos (auto) 0.1 Absolute Nucleated RBC 0.0 Nucleated RBC % 0.1 INR (Anticoag Therapy) Sodium Potassium Chloride Carbon Dioxide Anion Gap BUN Creatinine Est GFR ( Amer) Est GFR (Non-Af Amer) BUN/Creatinine Ratio Glucose POC Glucose (mg/dL) 143 H 301 H Calcium Total Bilirubin AST ALT Alkaline Phosphatase Total Protein Albumin Globulin Albumin/Globulin Ratio 09/16/19 09/16/19 06:38 06:38 WBC RBC Hgb Hct MCV MCH MCHC RDW Plt Count MPV Neut % (Auto) Lymph % (Auto) [place] % (Auto) Eos % (Auto) Baso % (Auto) Absolute Neuts (auto) Absolute Lymphs (auto) Absolute Monos (auto) Absolute Eos (auto) Absolute Basos (auto) Absolute Nucleated RBC Nucleated RBC % INR (Anticoag Therapy) 2.70 H Sodium 131 L Potassium 4.7 Chloride 95 L Carbon Dioxide 24 Anion Gap 12 H BUN 50 H Creatinine 7.32 H Est GFR ( Amer) 6.7 Est GFR (Non-Af Amer) 5.5 BUN/Creatinine Ratio 6.8 L Glucose 169 H POC Glucose (mg/dL) Calcium 8.1 L Total Bilirubin 0.30 AST 16 ALT < 3 L Alkaline Phosphatase 144 H Total Protein 5.5 L Albumin 2.5 L Globulin 3.0 Albumin/Globulin Ratio 0.8 L Exam: GENERAL: No distress, looks older than stated age LUNGS: Clear bilaterally HEART: Regular rhythm ABDOMEN: Soft, +BS EXTREMITIES: right knee wound C/D/I NEUROLOGIC: Sensation diminished in feet. Motor 5/5 except RLE due to pain Assessment/Plan: 1. Right TKA: WBAT RLE. PT/OT 2. ESRD: PD. Rocaltrol 3. Seizures: Keppra. 4. Diabetes: SSI 5. HTN: Catapres/Cardizem/Imdur/Labetalol/Hytrin 6. Intestinal AVM: Protonix BID 7: DVT Prophylaxis: Coumadin 1 mg daily, follow INR 8. Memory dysfunction: Scored 14 on BIMS. PAID SEARCH ANALYST will see for cog godwin 09/16/19 16:47
[2019-09-16] MEDS: Warfarin TAB(*) 1 MG PO SCH (17:21)
[2019-09-16] MEDS: Isosorbide Mononitrate ER TAB* 30 MG PO SCH (17:21)
[2019-09-16] MEDS: Terazosin CAP* 5 MG PO SCH (21:34)
[2019-09-17] MEDS: Acetaminophen TAB* 325 MG PO PRN ×2 (04:33→18:44)
[2019-09-17] MEDS: oxyCODONE/Acetamin 5/325 MG* TAB PO PRN ×2 (07:20→11:42)
[2019-09-17] MEDS: Docusate CAP* 100 MG PO SCH ×2 (09:03→20:54)
[2019-09-17] MEDS: amLODIPine TAB* 5 MG PO SCH (09:03)
[2019-09-17] MEDS: Calcitriol CAP* 0.25 MCG PO SCH (09:03)
[2019-09-17] MEDS: Diltiazem CD CAP* 240 MG PO SCH (09:03)
[2019-09-17] MEDS: levETIRAcetam TAB* 500 MG PO SCH (09:03)
[2019-09-17] MEDS: Labetalol TAB* 300 MG PO SCH ×2 (09:03→20:54)
[2019-09-17] MEDS: cloNIDine TAB* 0.1 MG PO SCH ×3 (09:03→20:54)
[2019-09-17] MEDS: Mupirocin 2% OINT* TUBE TOPICAL SCH (09:03)
[2019-09-17] MEDS: Pantoprazole TAB * 40 MG TAB PO SCH ×2 (09:04→20:54)
[2019-09-17] MEDS: Insulin LISPRO* 1 UNITS UNIT SUBCUT SCH ×4 (09:04→20:57)
--- NOTE | 2019-09-17 11:03 | PN ---
Progress Note Date of Service: 09/17/19 Note: ELDA COTTO was visited. Therapy notes read and reviewed. Her right knee was examined. Wound looks clean, angle in place. No complaints otherwise. Will check INR tomorrow Current Medications: Active Medications Generic Name Dose Route Start Last Admin Trade Name Freq PRN Reason Stop Dose Admin Acetaminophen 650 mg 09/14/19 11:53 09/17/19 04:33 Tylenol Tab* PO 650 mg Q6H PRN Administration MILD PAIN or TEMP > 100.4 Amlodipine Besylate 10 mg 09/15/19 09:00 09/17/19 09:03 Norvasc Tab* PO 10 mg DAILY NEVA Administration Calcitriol 0.25 mcg 09/15/19 09:00 09/17/19 09:03 Rocaltrol Cap* PO 0.25 mcg DAILY NEVA Administration Clonidine HCl 0.3 mg 09/14/19 14:00 09/17/19 09:03 Catapres Tab* PO 0.3 mg TID NEVA Administration Dextrose 12.5 gm 09/14/19 13:05 D50w Syringe 50 Ml* IV PUSH .FOR FS < 60 - SS PRN FS < 60 Diltiazem HCl 240 mg 09/15/19 09:00 09/17/19 09:03 Cardizem Cd Cap* PO 240 mg DAILY NEVA Administration Docusate Sodium 100 mg 09/14/19 21:00 09/17/19 09:03 Colace Cap* PO 100 mg BID NEVA Administration Insulin Human Lispro 0 - 12 units 09/14/19 16:30 09/17/19 09:04 Humalog* SUBCUT 6 units ACHS NEVA Administration Protocol Isosorbide Mononitrate 30 mg 09/14/19 18:00 09/16/19 17:21 Imdur Er Tab* PO 30 mg 1800 NEVA Administration Labetalol HCl 300 mg 09/14/19 21:00 09/17/19 09:03 Trandate Tab* PO 300 mg BID NEVA Administration Levetiracetam 500 mg 09/15/19 09:00 09/17/19 09:03 Keppra Tab* PO 500 mg DAILY NEVA Administration Mupirocin 1 applic 09/15/19 09:00 09/17/19 09:03 Bactroban 2 % Oint* TOPICAL 1 applic DAILY NEVA Administration Oxycodone/Acetaminophen 1 tab 09/14/19 12:05 09/16/19 08:38 Percocet 5/325 Tab* PO 1 tab Q4H PRN Administration PAIN - MODERATE Oxycodone/Acetaminophen 2 tab 09/14/19 12:06 09/17/19 07:20 Percocet 5/325 Tab* PO 2 tab Q4H PRN Administration PAIN - SEVERE Pantoprazole Sodium 40 mg 09/14/19 21:00 09/17/19 09:04 Protonix Tab* PO 40 mg BID NEVA Administration Senna 2 tab 09/14/19 11:53 Senokot 8.6 Mg Tab* PO BEDTIME PRN CONSTIPATION Terazosin HCl 10 mg 09/14/19 21:00 09/16/19 21:34 Hytrin Cap* PO 10 mg BEDTIME NEVA Administration Warfarin Sodium 1 mg 09/16/19 17:00 09/16/19 17:21 Coumadin Tab(*) PO 1 mg DAILY@1700 NEVA Administration Protocol Vital Signs: Vital Signs Temp Pulse Resp BP Pulse Ox 99.6 F 88 14 145/47 96 09/17/19 04:49 09/17/19 04:49 09/17/19 10:48 09/17/19 04:49 09/17/19 04:49 Lab Results: Laboratory Results - last 24 hr 09/16/19 09/16/19 09/16/19 12:04 16:47 20:44 POC Glucose (mg/dL) 210 H 183 H 71 Exam: GENERAL: No distress, looks older than stated age LUNGS: Clear bilaterally HEART: Regular rhythm ABDOMEN: Soft, +BS EXTREMITIES: right knee wound C/D/I NEUROLOGIC: Sensation diminished in feet. Motor 5/5 except RLE due to pain Assessment/Plan: 1. Right TKA: WBAT RLE. PT/OT 2. ESRD: PD. Rocaltrol 3. Seizures: Keppra. 4. Diabetes: SSI 5. HTN: Catapres/Cardizem/Imdur/Labetalol/Hytrin 6. Intestinal AVM: Protonix BID 7: DVT Prophylaxis: Coumadin 1 mg daily, check INR in am 8. Memory dysfunction: Scored 14 on BIMS. METAL CHECKER will see for cog godwin 09/17/19 11:04
[2019-09-17] MEDS: Isosorbide Mononitrate ER TAB* 30 MG PO SCH (17:44)
[2019-09-17] MEDS: Warfarin TAB(*) 1 MG PO SCH (17:44)
[2019-09-17] MEDS: Terazosin CAP* 5 MG PO SCH (20:55)
[2019-09-18] MEDS: oxyCODONE/Acetamin 5/325 MG* TAB PO PRN (05:43)
[2019-09-18 07:56] LABS: INR 1.7 (0.82-1.09)
[2019-09-18] MEDS: Docusate CAP* 100 MG PO SCH ×2 (08:12→20:49)
[2019-09-18] MEDS: Labetalol TAB* 300 MG PO SCH ×2 (08:12→20:49)
[2019-09-18] MEDS: cloNIDine TAB* 0.1 MG PO SCH ×3 (08:12→20:49)
[2019-09-18] MEDS: Calcitriol CAP* 0.25 MCG PO SCH (08:12)
[2019-09-18] MEDS: amLODIPine TAB* 5 MG PO SCH (08:12)
[2019-09-18] MEDS: Pantoprazole TAB * 40 MG TAB PO SCH ×2 (08:12→20:49)
[2019-09-18] MEDS: Acetaminophen TAB* 325 MG PO PRN ×2 (08:13→14:28)
[2019-09-18] MEDS: levETIRAcetam TAB* 500 MG PO SCH (08:13)
[2019-09-18] MEDS: Diltiazem CD CAP* 240 MG PO SCH (08:13)
[2019-09-18] MEDS: Insulin LISPRO* 1 UNITS UNIT SUBCUT SCH ×4 (08:14→20:52)
[2019-09-18] MEDS: Mupirocin 2% OINT* TUBE TOPICAL SCH (08:15)
--- NOTE | 2019-09-18 16:35 | PN ---
Progress Note Date of Service: 09/18/19 Note: ELDA COTTO was visited. Nursing notes read and reviewed. She complains of increased knee pain and says the Percocet doesn't work. Will try [place]. INR down to 1.7, but since it was 4.0 will continue 1 mg Current Medications: Active Medications Generic Name Dose Route Start Last Admin Trade Name Freq PRN Reason Stop Dose Admin Acetaminophen 650 mg 09/14/19 11:53 09/18/19 14:28 Tylenol Tab* PO 650 mg Q6H PRN Administration MILD PAIN or TEMP > 100.4 Hydrocodone [place]/Acetaminophen 1 tab 09/18/19 16:33 [place] 5-325 Tab* PO Q4H PRN PAIN - MODERATE Hydrocodone Bitart/Acetaminophen 2 tab 09/18/19 16:33 [place] 5-325 Tab* PO Q4H PRN PAIN - SEVERE Amlodipine Besylate 10 mg 09/15/19 09:00 09/18/19 08:12 Norvasc Tab* PO 10 mg DAILY NEVA Administration Calcitriol 0.25 mcg 09/15/19 09:00 09/18/19 08:12 Rocaltrol Cap* PO 0.25 mcg DAILY NEVA Administration Clonidine HCl 0.3 mg 09/14/19 14:00 09/18/19 14:27 Catapres Tab* PO 0.3 mg TID NEVA Administration Dextrose 12.5 gm 09/14/19 13:05 D50w Syringe 50 Ml* IV PUSH .FOR FS < 60 - SS PRN FS < 60 Diltiazem HCl 240 mg 09/15/19 09:00 09/18/19 08:13 Cardizem Cd Cap* PO 240 mg DAILY NEVA Administration Docusate Sodium 100 mg 09/14/19 21:00 09/18/19 08:12 Colace Cap* PO 100 mg BID NEVA Administration Insulin Human Lispro 0 - 12 units 09/14/19 16:30 09/18/19 12:19 Humalog* SUBCUT 4 units ACHS NEVA Administration Protocol Isosorbide Mononitrate 30 mg 09/14/19 18:00 09/17/19 17:44 Imdur Er Tab* PO 30 mg 1800 NEVA Administration Labetalol HCl 300 mg 09/14/19 21:00 09/18/19 08:12 Trandate Tab* PO 300 mg BID NEVA Administration Levetiracetam 500 mg 09/15/19 09:00 09/18/19 08:13 Keppra Tab* PO 500 mg DAILY NEVA Administration Mupirocin 1 applic 09/15/19 09:00 09/18/19 08:15 Bactroban 2 % Oint* TOPICAL 1 applic DAILY NEVA Administration Pantoprazole Sodium 40 mg 09/14/19 21:00 09/18/19 08:12 Protonix Tab* PO 40 mg BID NEVA Administration Senna 2 tab 09/14/19 11:53 Senokot 8.6 Mg Tab* PO BEDTIME PRN CONSTIPATION Terazosin HCl 10 mg 09/14/19 21:00 09/17/19 20:55 Hytrin Cap* PO 10 mg BEDTIME NEVA Administration Warfarin Sodium 1 mg 09/16/19 17:00 09/17/19 17:44 Coumadin Tab(*) PO 1 mg DAILY@1700 NEVA Administration Protocol Vital Signs: Vital Signs Temp Pulse Resp BP Pulse Ox 98.9 F 65 20 128/38 97 09/18/19 15:00 09/18/19 15:00 09/18/19 15:00 09/18/19 15:00 09/18/19 15:00 Lab Results: Laboratory Results - last 24 hr 09/17/19 09/17/19 09/17/19 08:26 12:20 16:49 INR (Anticoag Therapy) POC Glucose (mg/dL) 258 H 178 H 265 H 09/17/19 09/18/19 20:25 07:36 INR (Anticoag Therapy) 1.70 H POC Glucose (mg/dL) 320 H Exam: GENERAL: No distress, looks older than stated age LUNGS: Clear bilaterally HEART: Regular rhythm ABDOMEN: Soft, +BS EXTREMITIES: right knee wound C/D/I NEUROLOGIC: Sensation diminished in feet. Motor 5/5 except RLE due to pain Assessment/Plan: 1. Right TKA: WBAT RLE. PT/OT 2. ESRD: PD. Rocaltrol 3. Seizures: Keppra. 4. Diabetes: SSI 5. HTN: Catap[place]/Cardizem/Imdur/Labetalol/Hytrin 6. Intestinal AVM: Protonix BID 7: DVT Prophylaxis: Coumadin 1 mg daily, check INR in am 8. Memory dysfunction: Scored 14 on BIMS. DOOR BUILDER will see for cog eval 09/18/19 16:35
[2019-09-18] MEDS: Warfarin TAB(*) 1 MG PO SCH (18:15)
[2019-09-18] MEDS: Isosorbide Mononitrate ER TAB* 30 MG PO SCH (18:15)
[2019-09-18] MEDS: HYDROcodone/ACETAMIN 5-325 MG* 1 TAB PO PRN (18:15)
[2019-09-18] MEDS: Methocarbamol TAB* 500 MG PO PRN (20:49)
[2019-09-18] MEDS: Terazosin CAP* 5 MG PO SCH (20:49)
[2019-09-19] MEDS: HYDROcodone/ACETAMIN 5-325 MG* 1 TAB PO PRN ×3 (04:26→23:41)
[2019-09-19 05:21] LABS: INR 1.73 (0.82-1.09)
[2019-09-19] MEDS: Diltiazem CD CAP* 240 MG PO SCH (08:08)
[2019-09-19] MEDS: Calcitriol CAP* 0.25 MCG PO SCH (08:09)
[2019-09-19] MEDS: Pantoprazole TAB * 40 MG TAB PO SCH ×2 (08:09→20:25)
[2019-09-19] MEDS: Labetalol TAB* 300 MG PO SCH ×2 (08:09→20:25)
[2019-09-19] MEDS: Docusate CAP* 100 MG PO SCH ×2 (08:09→20:27)
[2019-09-19] MEDS: cloNIDine TAB* 0.1 MG PO SCH ×3 (08:09→20:25)
[2019-09-19] MEDS: amLODIPine TAB* 5 MG PO SCH (08:09)
[2019-09-19] MEDS: levETIRAcetam TAB* 500 MG PO SCH (08:09)
[2019-09-19] MEDS: Insulin LISPRO* 1 UNITS UNIT SUBCUT SCH ×4 (09:39→21:34)
--- NOTE | 2019-09-19 15:15 | PN ---
Progress Note - Progress Note Date of Service: 09/19/19 Note: Nephrology f/u note Performed by Dr. Kathy Doyle, [facility] Nephrology 09/19/2019 69 YO AAF s/p Right Total Knee Arthroplasty Intubated and extubated s/p tonic clonic seizure Had severe Anemia, 2/2 small intestinal AVM ESRD on CCPD, has been continued while inpatient with 1.5% & 2.5%Dextrose. Today she is awake and alert, participating actively with physical therapy Hospital Meds: Reviewed Objective: Temp Pulse Resp BP Pulse Ox 98.1 F 86 18 153/61 99 09/19/19 04:19 09/19/19 04:19 09/19/19 10:07 09/19/19 04:19 09/19/19 04:19 10 Point multi system exam: Constitutional Alert Oriented HEENT: No Conjunctivitis Abdomen Soft Abdomen No Ascites Heart: NSR, No LE Edema, No murmur Lungs: Clear to auscultation Extremities: No edema, no rash Skin no rash Neurology No deficit. CN intact Laboratory Reviewed Sodium 131 mmol/L (135-145) L 09/16/19 06:38 Potassium 4.7 mmol/L (3.5-5.0) 09/16/19 06:38 BUN 50 mg/dL (6-24) H 09/16/19 06:38 Creatinine 7.32 mg/dL (0.51-0.95) H 09/16/19 06:38 Calcium 8.1 mg/dL (8.6-10.3) L 09/16/19 06:38 AST 16 U/L (13-39) 09/16/19 06:38 ALT < 3 U/L (7-52) L 09/16/19 06:38 Assessment and Plan: Continue PD Stable CCPD, 4 exchanges, 2200 cc, 1.5% & 2.5% Electrolytes Ok BP Ok No edema PD nurse will setup PD tonight Na low: Limit fluid intake
[2019-09-19] MEDS: Isosorbide Mononitrate ER TAB* 30 MG PO SCH (17:21)
[2019-09-19] MEDS: Warfarin TAB(*) 1 MG PO SCH (17:21)
[2019-09-19] MEDS: Mupirocin 2% OINT* TUBE TOPICAL SCH (18:24)
[2019-09-19] MEDS: Terazosin CAP* 5 MG PO SCH (20:25)
--- NOTE | 2019-09-19 21:33 | PN ---
Progress Note Date of Service: 09/19/19 Note: ELDA COTTO was visited. Therapy notes read and reviewed. Appreciate Dr. Doyle's note. Her INR is 1.73, may need to increase Coumadin. She feels depressed and her daughter wonders if it is the Keppra. I will ask neurology for their input. Current Medications: Active Medications Generic Name Dose Route Start Last Admin Trade Name Freq PRN Reason Stop Dose Admin Acetaminophen 650 mg 09/14/19 11:53 09/18/19 14:28 Tylenol Tab* PO 650 mg Q6H PRN Administration MILD PAIN or TEMP > 100.4 Hydrocodone Bitart/Acetaminophen 1 tab 09/18/19 16:33 09/19/19 08:09 [place] 5-325 Tab* PO 1 tab Q4H PRN Administration PAIN - MODERATE Hydrocodone Bitart/Acetaminophen 2 tab 09/18/19 16:33 [place] 5-325 Tab* PO Q4H PRN PAIN - SEVERE Amlodipine Besylate 10 mg 09/15/19 09:00 09/19/19 08:09 Norvasc Tab* PO 10 mg DAILY NEVA Administration Calcitriol 0.25 mcg 09/15/19 09:00 09/19/19 08:09 Rocaltrol Cap* PO 0.25 mcg DAILY NEVA Administration Clonidine HCl 0.3 mg 09/14/19 14:00 09/19/19 20:25 Catapres Tab* PO 0.3 mg TID NEVA Administration Dextrose 12.5 gm 09/14/19 13:05 D50w Syringe 50 Ml* IV PUSH .FOR FS < 60 - SS PRN FS < 60 Diltiazem HCl 240 mg 09/15/19 09:00 09/19/19 08:08 Cardizem Cd Cap* PO 240 mg DAILY NEVA Administration Docusate Sodium 100 mg 09/14/19 21:00 09/19/19 20:27 Colace Cap* PO Not Given BID NEVA Insulin Human Lispro 0 - 12 units 09/14/19 16:30 09/19/19 17:21 Humalog* SUBCUT 4 units ACHS NEVA Administration Protocol Isosorbide Mononitrate 30 mg 09/14/19 18:00 09/19/19 17:21 Imdur Er Tab* PO 30 mg 1800 NEVA Administration Labetalol HCl 300 mg 09/14/19 21:00 09/19/19 20:25 Trandate Tab* PO 300 mg BID NEVA Administration Levetiracetam 500 mg 09/15/19 09:00 09/19/19 08:09 Keppra Tab* PO 500 mg DAILY NEVA Administration Methocarbamol 750 mg 09/18/19 16:34 09/18/19 20:49 Robaxin Tab* PO 750 mg TID PRN Administration SPASMS Mupirocin 1 applic 09/15/19 09:00 09/19/19 18:24 Bactroban 2 % Oint* TOPICAL Not Given DAILY NEVA Pantoprazole Sodium 40 mg 09/14/19 21:00 09/19/19 20:25 Protonix Tab* PO 40 mg BID NEVA Administration Senna 2 tab 09/14/19 11:53 Senokot 8.6 Mg Tab* PO BEDTIME PRN CONSTIPATION Terazosin HCl 10 mg 09/14/19 21:00 09/19/19 20:25 Hytrin Cap* PO 10 mg BEDTIME NEVA Administration Warfarin Sodium 1 mg 09/16/19 17:00 09/19/19 17:21 Coumadin Tab(*) PO 1 mg DAILY@1700 NEVA Administration Protocol Vital Signs: Vital Signs Temp Pulse Resp BP Pulse Ox 98.7 F 73 18 137/42 98 09/19/19 16:00 09/19/19 16:00 09/19/19 16:00 09/19/19 16:00 09/19/19 16:00 Lab Results: Laboratory Results - last 24 hr 09/19/19 09/19/19 09/19/19 05:08 07:41 12:04 INR (Anticoag Therapy) 1.73 H POC Glucose (mg/dL) 253 H 118 H 09/19/19 09/19/19 16:57 20:25 INR (Anticoag Therapy) POC Glucose (mg/dL) 213 H 307 H Exam: GENERAL: No distress, looks older than stated age LUNGS: Clear bilaterally HEART: Regular rhythm ABDOMEN: Soft, +BS EXTREMITIES: right knee wound C/D/I NEUROLOGIC: Sensation diminished in feet. Motor 5/5 except RLE due to pain Assessment/Plan: 1. Right TKA: WBAT RLE. PT/OT 2. ESRD: PD. Rocaltrol 3. Seizures: Keppra. 4. Diabetes: SSI 5. HTN: Catapres/Cardizem/Imdur/Labetalol/Hytrin 6. Intestinal AVM: Protonix BID 7: DVT Prophylaxis: Coumadin 1 mg daily, check INR Thursday, may need increase but have to be careful with Intestinal AVM 8. Memory dysfunction: Scored 14 on BIMS. INTERNAL CONTROLS ANALYST will see for cog eval 09/19/19 21:34
[2019-09-20] MEDS: Docusate CAP* 100 MG PO SCH ×2 (09:21→19:58)
[2019-09-20] MEDS: Labetalol TAB* 300 MG PO SCH ×2 (09:21→19:58)
[2019-09-20] MEDS: Calcitriol CAP* 0.25 MCG PO SCH (09:21)
[2019-09-20] MEDS: cloNIDine TAB* 0.1 MG PO SCH ×3 (09:21→19:58)
[2019-09-20] MEDS: amLODIPine TAB* 5 MG PO SCH (09:21)
[2019-09-20] MEDS: Diltiazem CD CAP* 240 MG PO SCH (09:21)
[2019-09-20] MEDS: levETIRAcetam TAB* 500 MG PO SCH (09:21)
[2019-09-20] MEDS: Pantoprazole TAB * 40 MG TAB PO SCH ×2 (09:21→19:58)
[2019-09-20] MEDS: Mupirocin 2% OINT* TUBE TOPICAL SCH (09:22)
[2019-09-20] MEDS: HYDROcodone/ACETAMIN 5-325 MG* 1 TAB PO PRN (09:22)
[2019-09-20] MEDS: Insulin LISPRO* 1 UNITS UNIT SUBCUT SCH ×4 (09:37→21:38)
--- NOTE | 2019-09-20 12:52 | PMRUTEAM ---
PMRU: Team Meeting Current Status: Physical Therapy: Current Status Current Rolling Status Independent Current Supine <-> Sit Status Partial/Moderate Current Sit <-> Stand Status Supervision/Touching Current Bed <-> Chair Status Supervision/Touching Transfer/Bed Mobility Rolling Walker Recommended Devices Transfer Mobility Comment needs frequent cuing for safety/procedure Current Picking Up Object Not attempted Status Current Car Transfer Status Not Applicable Current Ambulation Assistance Partial/Moderate Status Ambulation Assistive Device Rolling Walker Ambulation Conditions Two or More Turns Current Ambulation Distance 120 Ambulation Comment quite varriable Current Wheelchair Propulsion Not Applicable Ability Status Current Stair Climbing Status Partial/Moderate Stair Climbing Assistive Left Railing,Right Railing Devices Number of Stairs Climbed 4 Current Curb Assistance Status Not attempted Occupational Therapy: Current Status Current Upper Body Dressing Setup or Clean-up Assist Status Current Lower Body Dressing Supervision/Touching Status Current Footwear Status Setup or Clean-up Assist Current Bathing Status Supervision/Touching Current Grooming Status Setup or Clean-up Assist Current Toileting Status Partial/Moderate Current Toilet Transfer Status Partial/Moderate Current Eating Status Independent Nursing: Current Status Skin Deviations [Right Previous Access Point Anterior Neck] Skin Deviations [Left 4th Toe] Other Skin Deviations [Right Knee] Incision Skin Deviation Description [ healed Right Anterior Neck] Skin Deviation Description [ triple antibiotic in place Left 4th Toe] Skin Deviation Description [ edema noted. incision intact with sutures. open to Right Knee] air Rec Therapy: Current Status Summary of Assessment and Recreation therapy assessment complete and pt is Clinical Impression aware of services. Pt expressed feeling tired in the afternoon after therapy, but is open to continued leisure visits and pet therapy. Treatment Goals Pt will engage in leisure activities while on the unit as tolerated Treatment Plan Provide recreation therapy services and encourage involvement Social Work: Current Status Discharge Plan return home with home care svs and support from friends Potential for Family Training TBD - no family in the area Anticipated Discharge Home Destination Discharge With home care svs and support from friends Nutrition: Current Status Monitoring po intake averaging ~50% (x past 3 days). Consistent carb, renal diet appropriate, although some liberty being given for K+ content depending on weekly labs (was significantly hypokalemic 09/09 and 09/10, but more recent K 4.7). BGs ranging widely (99-307); recent A1c 8.4%. Protein drink requested last evening; suggest Glucerna Shakes if pt will accept. Has received Coumadin daily since 09/16, so will provide vit K education in near future). Will continue to follow. Speech: Current Status Assessment Patient progressing as expected. Goals: Physical Therapy: Goals Goals to Be Accomplished in ( 10 Days) Goal: Rolling Assistance Independent Goal Supine <-> Sit Status Independent Goal Sit <-> Stand Status Independent Goal Bed <-> Chair Status Independent Transfer/Bed Mobility Rolling Walker Recommended Devices Goal: Picking Up Object Independent Goal: Car Transfer Status Setup or Clean-up Assist Goal: Ambulation Assistance Independent Ambulation Assistive Devices Rolling Walker Ambulation Distance (ft) 150 Goal: Wheelchair Propulsion Not Applicable Ability Goal: Stairs Assistance Independent Stairs Recommended Devices Two Rails Number of Stairs 5 Goal: Curb Assistance Independent Occupational Therapy: Goals Goals to be Completed in (Days 5-7 days ) Goal Upper Body Dressing Independent Routine Goal Lower Body Dressing Independent Routine Goal Footwear Status Independent Goal Bathing Routine (OT) Independent Goal Grooming Routine Independent Goal Toilet Hygiene and Independent Clothing Management Routine Goal Toilet Transfer Routine Independent Goal Functional Transfers for Independent ADL Goal Feeding Routine Independent Goal Light Housekeeping Tasks Independent Nutrition: Goals Intervention Goals 1. adequate intake to support hydration and lean body mass without significant wt change 2. glycemic control within inpatient parameters; no s/sx hypo-hyperglycemia 3. anticipate improvement in renal labs as patient stabilizes 4. regulation of bowel pattern; no c/o constipation (or diarrhea) 5. pt will receive education re: Coumadin/vit K interaction if warfarin expected to resume and continue Speech: Goals Speech Goal 1 Memory Goal 1 Comments Memory Goal, Long-Term: Pt will use compensatory strategies to encode and retrieve 5/5 new items after delay of 20 minutes, Independently, for independence in mobility safety, ADLs and community access. Status: Goal progressing as expected Memory Goal, Short-term: Pt will use compensatory strategies to encode and retrieve 5/5 new items after delay of 4 minutes, given skilled instruction, Moderate cueing, and extra time. Status: Auditory memory word list retention category inclusion, field of 4 with 20% accuracy independently and 80% when given second verbal repetition; field of 5 after patient prompted to use compensatory strategy of verbal repetition with 40% accuracy independently and 60% accuracy with minimal repetition required. Auditory memory functional memory: appointment task, completed with 67% accuracy given no cues and increase accuracy when provided with verbal prompts. Recalled first appointment information more accuretly than second appointment read. Speech Goal 2 Problem Solving Speech Goal 2 Comments Problem Solving Goal: Long-Term Goal: Pt will use compensatory strategies to solve moderately complex routine problems, for transfer and mobility safety, adaptive dressing, time and money management; with 100% accuracy, Independently. Status: Goal established Problem Solving Goal: Short-Term: Pt will use compensatory strategies to solve simple routine problems, for transfer and mobility safety, adaptive dressing, time and money management; with 80% accuracy, given skilled instruction, Moderate cueing, and extra time. Social Work: Goals Discharge Plan return home with home care svs and support from friends Potential for Family Training TBD - no family in the area Anticipated Discharge Home Destination Discharge With home care svs and support from friends Care Plan: Care Plan ADL's - Improve/Maintain Start: 09/14/19 16:05 Freq: DAILY@0700,1900 Status: Active Target: 09/15/19 Protocol: Activity Type Activity Date Activity User E-Sign Co-Sign Detail Recorded Client Recorded Date Recorded By Document 09/19/19 10:44 [id number] 09/19/19 10:44 [id number] 09/19/19 10:44 PMRU Outcome: ADL's/ADL Transfers Orders/Interventions Occupational Therapy Evaluation & Treatment Device Yes Address Deficits Secondary To: R TKA Patient to receive OT 5x/wk for 60-120 Therex min/day Self Care Management Group Therapy UE/LE ADL's with Assist Yes: independent ADL Transfers with Assist Yes: independent Toileting: Transfers,Clothing Management Yes: ,Hygeine w/Assist independent Light Kitchen/Laundry w/Assist Yes: independent Other Outcome/Goals Pt continues to complete morning ADL routine with CGA in standing and verbal cues for safety /sequencing. Pt has very limited carry over from session to session. Pt even has difficulty recalling information during session. Director [employer] Strategic [employer]s has concerns about pt being d/c'd home alone 2* her memory and safety deficits . Also, concerns about pt being able to manage her dialysis bags. Progression Toward Outcome/Goals Progressing Cardiovascular- Improve/Maintain Start: 09/14/19 10:16 Freq: DAILY@0700,1900 Status: Active Target: 09/23/19 Protocol: Activity Type Activity Date Activity User E-Sign Co-Sign Detail Recorded Client Recorded Date Recorded By Document 09/20/19 07:00 [id number] [id number] 09/20/19 12:44 [id number] 09/20/19 07:00 PMRU Outcome: Cardiovascular Vital Signs q Shift for 48hrs Then BID Yes Daily Weight Ordered No Current Cardiovascular Outcome/Goal Maintain/ Achieve Baseline HR, BP , Perfusion Improve HR Within Prescribed Parameters Maintain/ Improve Perfusion Free of Abnormal Cardiac Symptoms Progression Toward Outcome/Goal Progressing Communication-Improve/Maintain Start: 09/19/19 12:14 Freq: DAILY@0700,1900 Status: Active Target: 09/23/19 Protocol: Activity Type Activity Date Activity User E-Sign Co-Sign Detail Recorded Client Recorded Date Recorded By Document 09/20/19 00:46 [id number] [email or web address] 09/20/19 00:48 [id number] 09/20/19 00:46 PMRU Outcome: Communication/Cognitive Status Current Communication Outcome/Goals Other Other Communication Outcomes/Goals Memory Goal, Long-Term: Pt will use compensatory strategies to encode and retrieve 5/5 new items after delay of 20 minutes, Independently, for independence in mobility safety, ADLs and community access. Status: Goal progressing as expected Memory Goal, Short-term: Pt will use compensatory strategies to encode and retrieve 5/5 new items after delay of 4 minutes, given skilled instruction, Moderate cueing , and extra time. Status: Auditory memory word list retention category inclusion, field of 4 with 20% accuracy independently and 80% when given second verbal repetition; field of 5 after patient prompted to use compensatory strategy of verbal repetition with 40% accuracy independently and 60% accuracy with minimal repetition required. Auditory memory functional memory: appointment task, completed with 67% accuracy given no cues and increase accuracy when provided with verbal prompts. Recalled first appointment information more accuretly than second appointment read. Problem Solving Goal: Long- Term Goal: Pt will use compensatory strategies to solve moderately complex routine problems, for transfer and mobility safety , adaptive dressing, time and money management; with 100% accuracy, Independently. Status: Goal established Problem Solving Goal: Short- Term: Pt will use compensatory strategies to solve simple routine problems, for transfer and mobility safety , adaptive dressing, time and money management; with 80% accuracy, given skilled instruction, Moderate cueing , and extra time. Progression Toward Outcomes/Goals Progressing DVT Prophylaxis- Improve/Maintain Start: 09/14/19 10:16 Freq: DAILY@0700,1900 Status: Active Target: 09/23/19 Protocol: Activity Type Activity Date Activity User E-Sign Co-Sign Detail Recorded Client Recorded Date Recorded By Document 09/20/19 07:00 [id number] 09/20/19 12:44 [id number] 09/20/19 07:00 PMRU Outcome: DVT Prophylaxis Current DVT Outcome/Goals Remains Free of DVT Complies with DVT Prophylaxis /Treatment Demonstrates Knowledge of DVT Prevention/ Treatment TEDS Stockings on Every AM, Off at HS Progression Toward Outcome/Goals Progressing Discharge Planning - Improve/Maintain Start: 09/14/19 10:16 Freq: DAILY@ Status: Active Target: 09/23/19 Protocol: Activity Type Activity Date Activity User E-Sign Co-Sign Detail Recorded Client Recorded Date Recorded By Document 09/20/19 07:00 [id number] 09/20/19 12:44 [id number] 09/20/19 07:00 PMRU Outcome: Discharge Planning Update Patient Family No: no family present Current Discharge Planning Outcome/Goals Demonstrates Understanding of Discharge Plan Homecare Referral - See Comment Progression Toward Outcome/Goals Progressing Education-Improve/Maintain Start: 09/14/19 10:16 Freq: DAILY@ Status: Active Target: 09/23/19 Protocol: Activity Type Activity Date Activity User E-Sign Co-Sign Detail Recorded Client Recorded Date Recorded By Document 09/20/19 07:00 [id number] 09/20/19 12:44 [id number] 09/20/19 07:00 PMRU Outcome: Education Current Education Outcome/Goals Demonstrate/ Verbalize Understanding of Written Discharge Instructions Demonstrates Skills Encourage Questions Progression Toward Outcome/Goals Progressing /GI-Improve/Maintain Start: 09/14/19 10:16 Freq: DAILY@ Status: Active Target: 09/23/19 Protocol: Activity Type Activity Date Activity User E-Sign Co-Sign Detail Recorded Client Recorded Date Recorded By Document 09/20/19 07:00 [id number] 09/20/19 12:44 [id number] 09/20/19 07:00 PMRU Outcome: Genitourinary/ Gastrointestinal Current Gastrointestinal Outcome/Goals Maintain/ Achieve Bowel Regularity in Accordance with Pt's Baseline Remain Free of Emesis Prevent Constipation Laxatives as Ordered Progression Toward Outcome/Goals Progressing Current Genitourinary Outcome/Goals Maintain/ Achieve Urinary Continence Maintain/ Achieve Adequate Urinary Output Other Genitourinary Outcome/Goals Peritoneal dialysis running at this time Progression Toward Outcome/Goals Progressing Medication Administration Start: 09/14/19 10:16 Freq: DAILY@0700,1900 Status: Active Target: 09/23/19 Protocol: Activity Type Activity Date Activity User E-Sign Co-Sign Detail Recorded Client Recorded Date Recorded By Document 09/20/19 07:00 [id number] 09/20/19 12:44 [id number] 09/20/19 07:00 PMRU Outcome: Medication Administration Assess Patient Knowledge/Teach Med Yes Education for all Meds 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 No Metabolic Status- Improve/Maintain Start: 09/14/19 10:16 Freq: DAILY@699,1899 Status: Active Target: 09/23/19 Protocol: Activity Type Activity Date Activity User E-Sign Co-Sign Detail Recorded Client Recorded Date Recorded By Document 09/20/19 07:00 [id number] 09/20/19 12:44 [id number] 09/20/19 07:00 PMRU Outcome: Metabolic Status Have Fingersticks Been Ordered Yes Fingerstick Order Frequency AC & HS Current Metabolic Status Outcome/Goals Maintain/ Improve Metabolic Status Demonstrate Knowledge of Prevention/ Treatment of Metabolic Imbalances Progression Toward Outcome/Goals Progressing Mobility- Improve/Maintain Start: 09/14/19 18:36 Freq: DAILY@ Status: Active Target: 09/15/19 Protocol: Activity Type Activity Date Activity User E-Sign Co-Sign Detail Recorded Client Recorded Date Recorded By Document 09/19/19 19:11 [id number] 09/19/19 19:11 [id number] 09/19/19 19:11 PMRU Outcome: Mobility Physical Therapy Evaluation and Yes Treatment Activity OOB with Assistance Yes WBAT Yes Device Yes Assistance Yes Patient to be seen 5x/wk for 60-120 min/ Therex day for: Mobility Training Gait Training Balance Other Current Mobility Outcome/Goals Maintain/ Achieve Baseline Mobility Status Improve Mobility Status Demonstrates Proper Use of Assistive Devices Free from Complications of Immobility Progression Toward Outcome/Goals Goal Initiation Bed Mobility Yes: independent Transfers Yes: independnet with rolling walker Gait x ft Yes: independnet with rolling walker to 150 Up/Down Stairs Yes: independnet up/ down 5 stairs with 2 rails. Pain/Comfort- Improve/Maintain Start: 09/14/19 10:16 Freq: DAILY@0700,1900 Status: Active Target: 09/23/19 Protocol: Activity Type Activity Date Activity User E-Sign Co-Sign Detail Recorded Client Recorded Date Recorded By Document 09/20/19 07:00 [id number] 09/20/19 12:44 [id number] 09/20/19 07:00 PMRU Outcome: Pain/Comfort Current Pain/Comfort Outcome/Goals Demonstrates Knowledge and Use of Available Comfort Measures Achieves Acceptable Comfort/Pain Level as Determined by Patient/Condit Maintain Comfort Level Allowing Patient to Fully Participate in Rehab Progression Toward Outcome/Goals Progressing Outcome/Goals Met Comment pain medication given, pt repositioned Rec Therapy- Improve/Maintain Start: 09/14/19 15:06 Freq: DAILY@07,1899 Status: Active Target: 09/20/19 Protocol: Activity Type Activity Date Activity User E-Sign Co-Sign Detail Recorded Client Recorded Date Recorded By Document 09/19/19 15:53 [id number] [email or web address] 09/19/19 15:55 [id number] 09/19/19 15:53 PMRU Outcome: Recreation Therapy Current Rec Ther Outcome/Goals Complete Rec Therapy Assessment Meet with Patient Regularly for Support Encourage Leisure Involvement Progression Toward Outcome/Goals Progressing Lack of Progression Comment Met with pt and assisted her in working on a crossword puzzle. Outcome/Goals Met Complete Rec Therapy Assessment Outcome/Goals Met Comment Recreation therapy assessment complete Safety- Improve/Maintain Start: 09/14/19 10:15 Freq: DAILY@0700,1900 Status: Active Target: 09/23/19 Protocol: Activity Type Activity Date Activity User E-Sign Co-Sign Detail Recorded Client Recorded Date Recorded By Document 09/20/19 07:00 [id number] [email or web address] 09/20/19 12:44 [id number] 09/20/19 07:00 PMRU Outcome: Safety Current Safety Outcome/Goals Remain Free of Injury or Harm Cooperates with Safety Measures for Least Restrictive Environment Prevent Falls/ Injury Other Safety Outcome/Goals remains high risk Progression Toward Outcome/Goals Progressing Outcome/Goals Met Comment [email or web address] Skin- Improve/Maintain Start: 09/14/19 10:16 Freq: DAILY@0700,1900 Status: Active Target: 09/23/19 Protocol: Activity Type Activity Date Activity User E-Sign Co-Sign Detail Recorded Client Recorded Date Recorded By Document 09/20/19 07:00 [id number] [email or web address] 09/20/19 12:44 [id number] 09/20/19 07:00 PMRU Outcome: Skin Skin Risk Level Mild Risk Skin Orders Spenco Boots Heels Off Bed Current Skin Outcome/Goals Maintain/ Improve Skin Integrity Free from Pressure Injury Surgical Incisions Healing Other Skin Outcome/Goals R heel up on pillow Progression Toward Outcome/Goals Progressing - Interdisciplinary Staff Present Field Marketing Lead/Social Work Staff Present: Melissa Weldon LMSW Nursing Staff Present: Miley Lacey LPN OT Staff Present: Chely Ruvalcaba PT Staff Present: Nolan Denton Rec Therapy Staff Present: Leah Foster CRYPTOLOGIC TECHNICIAN Staff Present: Yoel Alba Medicine Note: Length of Stay: 7 days Anticipated Discharge Destination: Home Tentative Discharge Date: 09/27/19 Discharged to: Home
[2019-09-20] MEDS: Isosorbide Mononitrate ER TAB* 30 MG PO SCH (17:32)
[2019-09-20] MEDS: Warfarin TAB(*) 1 MG PO SCH (17:32)
--- NOTE | 2019-09-20 17:50 | CONS ---
CC: Dr. Caridad Sahni * NEUROLOGY FOLLOWUP CONSULTATION: DATE OF CONSULT: 09/20/19 LOCATION: She is in [facility], room 250. REFERRING PROVIDER: Dr. Melgar. CHIEF COMPLAINT: Seizure, medication side effects. HISTORY OF PRESENT ILLNESS: Kristal Moreira is a 69-year-old woman who underwent a total knee replacement a week or two ago. She had an observed convulsion on 09/09/19. Apparently, she had 2 in the same day. There is no prior history of seizures. She was started on Keppra. She has not had a seizure since. She reports feeling very depressed. Dr. Melgar contacted me regarding possibly changing her anticonvulsant. As part of her evaluation, she had an EEG done on 09/09/[address] Carter as abnormal due to generalized slowing, but there were no epileptiform abnormalities. 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 There were also some susceptibility changes consistent with microhemorrhages in a hypertensive distribution. She denies ever having seizures before. She is not aware of ever having febrile seizures. There is no family history of epilepsy. MEDICATIONS: Reviewed and she is on: 1. Keppra 500 mg p.o. daily. 2. Labetalol 300 mg p.o. b.i.d. 3. Imdur 30 mg p.o. daily. 4. Sliding scale insulin. 5. Cardizem 240 mg p.o. daily. 6. Catapres 0.3 mg p.o. t.i.d. 7. Rocaltrol. 8. Amlodipine 10 mg p.o. daily. 9. Umbarger p.r.n. pain. 10. Robaxin 750 mg p.o. t.i.d. p.r.n. muscle spasms. 11. She is also on warfarin. IMPRESSION AND PLAN: Kristal apparently has a new onset seizure disorder. 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 She is having significant mood problems, which is a well known side effect of Keppra. I think lamotrigine would be a better agent for her in the long run. I wonder if there is a potential for a serious skin rash and has to be started slowly. I will decrease Keppra to 250 mg and start lamotrigine 25 mg every other day. The target dose would be 100 mg every other day. I will see her in my office in followup. I advised her that with a diagnosis of seizure she cannot drive and must notify the Department of [employer]. I told her it will be a minimum of 6 months from her last seizure before she could drive again. She agrees to adhere to those regulations. I will plan to see her in my office in followup in a few weeks and gradually titrate her lamotrigine and titrate her off of Keppra. [id number]/[facility] #: [id number] MTDD
[2019-09-20] MEDS: Acetaminophen TAB* 325 MG PO PRN (19:54)
[2019-09-20] MEDS: Senna TAB 8.6 mg* TAB PO PRN (19:56)
[2019-09-20] MEDS: Terazosin CAP* 5 MG PO SCH (19:58)
--- NOTE | 2019-09-20 20:12 | PN ---
Progress Note Date of Service: 09/20/19 Note: ELDA COTTO was visited. Therapy notes read and reviewed. She was discussed in interdisciplinary team rounds. She has been feeling depressed. She was seen by Dr. Barkley who is transitioning her off the Keppra and onto Lamictal. Current Medications: Active Medications Generic Name Dose Route Start Last Admin Trade Name Freq PRN Reason Stop Dose Admin Acetaminophen 650 mg 09/14/19 11:53 09/20/19 19:54 Tylenol Tab* PO 650 mg Q6H PRN Administration MILD PAIN or TEMP > 100.4 Hydrocodone Bitart/Acetaminophen 1 tab 09/18/19 16:33 09/20/19 09:22 [place] 5-325 Tab* PO 1 tab Q4H PRN Administration PAIN - MODERATE Hydrocodone Bitart/Acetaminophen 2 tab 09/18/19 16:33 09/19/19 23:41 [place] 5-325 Tab* PO 2 tab Q4H PRN Administration PAIN - SEVERE Amlodipine Besylate 10 mg 09/15/19 09:00 09/20/19 09:21 Norvasc Tab* PO 10 mg DAILY NEVA Administration Calcitriol 0.25 mcg 09/15/19 09:00 09/20/19 09:21 Rocaltrol Cap* PO 0.25 mcg DAILY NEVA Administration Clonidine HCl 0.3 mg 09/14/19 14:00 09/20/19 19:58 Catapres Tab* PO 0.3 mg TID NEVA Administration Dextrose 12.5 gm 09/14/19 13:05 D50w Syringe 50 Ml* IV PUSH .FOR FS < 60 - SS PRN FS < 60 Diltiazem HCl 240 mg 09/15/19 09:00 09/20/19 09:21 Cardizem Cd Cap* PO 240 mg DAILY NEVA Administration Docusate Sodium 100 mg 09/14/19 21:00 09/20/19 19:58 Colace Cap* PO 100 mg BID NEVA Administration Insulin Human Lispro 0 - 12 units 09/14/19 16:30 09/20/19 17:30 Humalog* SUBCUT 4 units ACHS NEVA Administration Protocol Isosorbide Mononitrate 30 mg 09/14/19 18:00 09/20/19 17:32 Imdur Er Tab* PO 30 mg 1800 NEVA Administration Labetalol HCl 300 mg 09/14/19 21:00 09/20/19 19:58 Trandate Tab* PO 300 mg BID NEVA Administration Lamotrigine 25 mg 09/22/19 09:00 Lamictal Tab(*) PO EVERY OTHER DAY NEVA Levetiracetam 250 mg 09/21/19 09:00 Keppra Tab* PO DAILY NEVA Methocarbamol 750 mg 09/18/19 16:34 09/18/19 20:49 Robaxin Tab* PO 750 mg TID PRN Administration SPASMS Mupirocin 1 applic 09/15/19 09:00 09/20/19 09:22 Bactroban 2 % Oint* TOPICAL 1 applic DAILY NEVA Administration Pantoprazole Sodium 40 mg 09/14/19 21:00 09/20/19 19:58 Protonix Tab* PO 40 mg BID NEVA Administration Senna 2 tab 09/14/19 11:53 09/20/19 19:56 Senokot 8.6 Mg Tab* PO 2 tab BEDTIME PRN Administration CONSTIPATION Terazosin HCl 10 mg 09/14/19 21:00 09/20/19 19:58 Hytrin Cap* PO 10 mg BEDTIME NEVA Administration Warfarin Sodium 1 mg 09/16/19 17:00 09/20/19 17:32 Coumadin Tab(*) PO 1 mg DAILY@1700 NEVA Administration Protocol Vital Signs: Vital Signs Temp Pulse Resp BP Pulse Ox 98.3 F 72 17 147/50 100 09/20/19 15:56 09/20/19 15:56 09/20/19 15:56 09/20/19 15:56 09/20/19 17:01 Lab Results: Laboratory Results - last 24 hr 09/19/19 09/19/19 09/19/19 07:41 12:04 16:57 POC Glucose (mg/dL) 253 H 118 H 213 H 09/19/19 09/20/19 09/20/19 20:25 02:37 08:15 POC Glucose (mg/dL) 307 H 99 222 H 09/20/19 09/20/19 09/20/19 10:56 11:57 16:29 POC Glucose (mg/dL) 202 H 172 H 249 H Exam: GENERAL: No distress, looks older than stated age LUNGS: Clear bilaterally HEART: Regular rhythm ABDOMEN: Soft, +BS EXTREMITIES: right knee wound C/D/I NEUROLOGIC: Sensation diminished in feet. Motor 5/5 except RLE due to pain Assessment/Plan: 1. Right TKA: WBAT RLE. PT/OT 2. ESRD: PD. Rocaltrol 3. Seizures: Keppra. 4. Diabetes: SSI 5. HTN: Catapres/Cardizem/Imdur/Labetalol/Hytrin 6. Intestinal AVM: Protonix BID 7: DVT Prophylaxis: Coumadin 1 mg daily, check INR Thursday, may need increase but have to be careful with Intestinal AVM 8. Memory dysfunction: Scored 14 on BIMS. CAREER TRANSITION SPECIALIST seeing for cognition 09/20/19 20:12
[2019-09-20 21:07] LABS: Urine Appearance Cloudy; Urine Bilirubin Negative (Negative); Urine Blood 1+ (Negative); Urine Color Yellow; Urine Glucose 1+(50 mg/dL) (Negative); Urine Ketones Negative (Negative); Urine Nitrite Negative (Negative); Urine Protein 2+(100 mg/dL) (Negative); Urine Specific Gravity 1.017 (1.010-1.030); Urine Urobilinogen Negative (Negative)
[2019-09-20 21:10] LABS: Urine Bacteria 1+ (Absent); Urine Red Blood Cell 1+(3-5/hpf) (Absent); Urine Squamous Epithelial Cell Present (Absent); Urine White Blood Cell 3+(>20/hpf) (Absent)
[2019-09-21 06:19] LABS: INR 1.49 (0.82-1.09)
[2019-09-21] MEDS: Docusate CAP* 100 MG PO SCH ×2 (09:15→20:24)
[2019-09-21] MEDS: levETIRAcetam TAB* 500 MG PO SCH (09:15)
[2019-09-21] MEDS: Calcitriol CAP* 0.25 MCG PO SCH (09:15)
[2019-09-21] MEDS: cloNIDine TAB* 0.1 MG PO SCH ×3 (09:15→20:24)
[2019-09-21] MEDS: Mupirocin 2% OINT* TUBE TOPICAL SCH (09:15)
[2019-09-21] MEDS: amLODIPine TAB* 5 MG PO SCH (09:15)
[2019-09-21] MEDS: Pantoprazole TAB * 40 MG TAB PO SCH ×2 (09:15→20:23)
[2019-09-21] MEDS: Labetalol TAB* 300 MG PO SCH ×2 (09:15→20:24)
[2019-09-21] MEDS: Diltiazem CD CAP* 240 MG PO SCH (09:15)
[2019-09-21] MEDS: Insulin LISPRO* 1 UNITS UNIT SUBCUT SCH ×4 (09:15→22:05)
[2019-09-21] MEDS: Isosorbide Mononitrate ER TAB* 30 MG PO SCH (18:52)
[2019-09-21] MEDS: Warfarin TAB(*) 1 MG PO SCH (18:54)
[2019-09-21] MEDS ORDERED: Warfarin TAB(*) 2 MG PO ONE (19:00)
[2019-09-21] MEDS: Terazosin CAP* 5 MG PO SCH (20:24)
[2019-09-21] MEDS: Senna TAB 8.6 mg* TAB PO PRN (20:24)
--- NOTE | 2019-09-21 20:25 | PN ---
Progress Note Date of Service: 09/21/19 Note: ELDA COTTO was visited. Therapy notes read and reviewed. Her U/A was consistent with a UTI and will give a dose of Bactrim DS today, then Bactrim SS daily starting tomorrow night. Will need to watch INR Current Medications: Active Medications Generic Name Dose Route Start Last Admin Trade Name Freq PRN Reason Stop Dose Admin Acetaminophen 650 mg 09/14/19 11:53 09/20/19 19:54 Tylenol Tab* PO 650 mg Q6H PRN Administration MILD PAIN or TEMP > 100.4 Hydrocodone Bitart/Acetaminophen 1 tab 09/18/19 16:33 09/20/19 09:22 [place] 5-325 Tab* PO 1 tab Q4H PRN Administration PAIN - MODERATE Hydrocodone Bitart/Acetaminophen 2 tab 09/18/19 16:33 09/19/19 23:41 [place] 5-325 Tab* PO 2 tab Q4H PRN Administration PAIN - SEVERE Amlodipine Besylate 10 mg 09/15/19 09:00 09/21/19 09:15 Norvasc Tab* PO 10 mg DAILY NEVA Administration Calcitriol 0.25 mcg 09/15/19 09:00 09/21/19 09:15 Rocaltrol Cap* PO 0.25 mcg DAILY NEVA Administration Clonidine HCl 0.3 mg 09/14/19 14:00 09/21/19 20:24 Catapres Tab* PO 0.3 mg TID NEVA Administration Dextrose 12.5 gm 09/14/19 13:05 D50w Syringe 50 Ml* IV PUSH .FOR FS < 60 - SS PRN FS < 60 Diltiazem HCl 240 mg 09/15/19 09:00 09/21/19 09:15 Cardizem Cd Cap* PO 240 mg DAILY NEVA Administration Docusate Sodium 100 mg 09/14/19 21:00 09/21/19 20:24 Colace Cap* PO 100 mg BID NEVA Administration Insulin Human Lispro 0 - 12 units 09/14/19 16:30 09/21/19 17:56 Humalog* SUBCUT 1 units ACHS NEVA Administration Protocol Isosorbide Mononitrate 30 mg 09/14/19 18:00 09/21/19 18:52 Imdur Er Tab* PO 30 mg 1800 NEVA Administration Labetalol HCl 300 mg 09/14/19 21:00 09/21/19 20:24 Trandate Tab* PO 300 mg BID NEVA Administration Lamotrigine 25 mg 09/22/19 09:00 Lamictal Tab(*) PO EVERY OTHER DAY [facility] Levetiracetam 250 mg 09/21/19 09:00 09/21/19 09:15 Keppra Tab* PO 250 mg DAILY NEVA Administration Methocarbamol 750 mg 09/18/19 16:34 09/18/19 20:49 Robaxin Tab* PO 750 mg TID PRN Administration SPASMS Mupirocin 1 applic 09/15/19 09:00 09/21/19 09:15 Bactroban 2 % Oint* TOPICAL 1 applic DAILY NEVA Administration Pantoprazole Sodium 40 mg 09/14/19 21:00 09/21/19 20:23 Protonix Tab* PO 40 mg BID NEVA Administration Senna 2 tab 09/14/19 11:53 09/21/19 20:24 Senokot 8.6 Mg Tab* PO 2 tab BEDTIME PRN Administration CONSTIPATION Terazosin HCl 10 mg 09/14/19 21:00 09/21/19 20:24 Hytrin Cap* PO 10 mg BEDTIME NEVA Administration Trimethoprim/Sulfamethoxazole 1 tab 09/21/19 20:30 Bactrim Ds 800/160 Tab* PO 09/21/19 20:31 ONCE ONE Warfarin Sodium 2 mg 09/22/19 17:00 Coumadin Tab(*) PO DAILY@1700 [facility] Protocol Vital Signs: Vital Signs Temp Pulse Resp BP Pulse Ox 98.3 F 68 16 138/50 98 09/21/19 16:22 09/21/19 16:22 09/21/19 16:22 09/21/19 16:22 09/21/19 16:22 Lab Results: Laboratory Results - last 24 hr 09/20/19 09/20/19 09/21/19 19:20 20:39 05:56 INR (Anticoag Therapy) 1.49 H POC Glucose (mg/dL) 339 H Urine Color Yellow Urine Appearance Cloudy Urine pH 6.0 Ur Specific [place] 1.017 Urine Protein 2+(100 mg/dl) A Urine Ketones Negative Urine Blood 1+ A Urine Nitrate Negative Urine Bilirubin Negative Urine Urobilinogen Negative Ur Leukocyte Esterase 2+ A Urine WBC (Auto) 3+(>20/hpf) A Urine RBC (Auto) 1+(3-5/hpf) A Ur Squamous Epith Cells Present A Urine Bacteria 1+ A Urine Glucose 1+(50 mg/dl) A 09/21/19 09/21/19 09/21/19 07:40 11:33 16:15 INR (Anticoag Therapy) POC Glucose (mg/dL) 219 H 260 H 142 H Urine Color Urine Appearance Urine pH Ur Specific [place] Urine Protein Urine Ketones Urine Blood Urine Nitrate Urine Bilirubin Urine Urobilinogen Ur Leukocyte Esterase Urine WBC (Auto) Urine RBC (Auto) Ur Squamous Epith Cells Urine Bacteria Urine Glucose Exam: GENERAL: No distress, looks older than stated age LUNGS: Clear bilaterally HEART: Regular rhythm ABDOMEN: Soft, +BS EXTREMITIES: right knee wound C/D/I NEUROLOGIC: Sensation diminished in feet. Motor 5/5 except RLE due to pain Assessment/Plan: 1. Right TKA: WBAT RLE. PT/OT 2. ESRD: PD. Rocaltrol 3. Seizures: Tapering off Keppra and onto Lamictal. 4. Diabetes: SSI 5. HTN: Catapres/Cardizem/Imdur/Labetalol/Hytrin 6. Intestinal AVM: Protonix BID 7: DVT Prophylaxis: Coumadin 2 mg daily, check INR Thursday, may need increase but have to be careful with Intestinal AVM 8. Memory dysfunction: Scored 14 on BIMS. PUBLIC RELATIONS PROFESSIONAL seeing for cognition 9. Urinary tract Infection: Bactrim, day 1 renally dosed. F/U cultures 09/21/19 20:25
[2019-09-21] MEDS ORDERED: Sulfamethox/Trimethoprim DS 800/160* TAB PO ONE (20:30)
[2019-09-22] MEDS: Acetaminophen TAB* 325 MG PO PRN (07:54)
[2019-09-22] MEDS: cloNIDine TAB* 0.1 MG PO SCH ×3 (10:04→21:25)
[2019-09-22] MEDS: amLODIPine TAB* 5 MG PO SCH (10:04)
[2019-09-22] MEDS: Labetalol TAB* 300 MG PO SCH ×2 (10:04→21:25)
[2019-09-22] MEDS: Docusate CAP* 100 MG PO SCH ×2 (10:04→21:24)
[2019-09-22] MEDS: Diltiazem CD CAP* 240 MG PO SCH (10:04)
[2019-09-22] MEDS: Calcitriol CAP* 0.25 MCG PO SCH (10:04)
[2019-09-22] MEDS: levETIRAcetam TAB* 500 MG PO SCH (10:05)
[2019-09-22] MEDS: Mupirocin 2% OINT* TUBE TOPICAL SCH (10:05)
[2019-09-22] MEDS: lamoTRIgine TAB(*) 25 MG PO SCH (10:05)
[2019-09-22] MEDS: Insulin LISPRO* 1 UNITS UNIT SUBCUT SCH ×4 (10:05→21:40)
[2019-09-22] MEDS: Pantoprazole TAB * 40 MG TAB PO SCH ×2 (10:05→21:25)
[2019-09-22] MEDS: Isosorbide Mononitrate ER TAB* 30 MG PO SCH (17:32)
[2019-09-22] MEDS: Warfarin TAB(*) 2 MG PO SCH (17:38)
[2019-09-22] MEDS ORDERED: Amoxicillin/Clavulanate TAB* 250 MG PO SCH (21:00)
[2019-09-22] MEDS ORDERED: Sulfamethox/Trimethoprim SS 400/80* TAB PO SCH (21:00)
--- NOTE | 2019-09-22 21:09 | PN ---
Progress Note Date of Service: 09/22/19 Note: ELDA COTTO was visited. Therapy notes read and reviewed. Her urine grew out Klebsiella. Will d/c Bactrim and start Augmentin and wait for sensitivities Current Medications: Active Medications Generic Name Dose Route Start Last Admin Trade Name Freq PRN Reason Stop Dose Admin Acetaminophen 650 mg 09/14/19 11:53 09/22/19 07:54 Tylenol Tab* PO 650 mg Q6H PRN Administration MILD PAIN or TEMP > 100.4 Hydrocodone Bitart/Acetaminophen 1 tab 09/18/19 16:33 09/20/19 09:22 [place] 5-325 Tab* PO 1 tab Q4H PRN Administration PAIN - MODERATE Hydrocodone Bitart/Acetaminophen 2 tab 09/18/19 16:33 09/19/19 23:41 [place] 5-325 Tab* PO 2 tab Q4H PRN Administration PAIN - SEVERE Amlodipine Besylate 10 mg 09/15/19 09:00 09/22/19 10:04 Norvasc Tab* PO 10 mg DAILY NEVA Administration Amoxicillin/Clavulanate Potassium 250 mg 09/22/19 21:00 Augmentin Tab* PO BEDTIME NEVA Calcitriol 0.25 mcg 09/15/19 09:00 09/22/19 10:04 Rocaltrol Cap* PO 0.25 mcg DAILY NEVA Administration Clonidine HCl 0.3 mg 09/14/19 14:00 09/22/19 13:37 Catapres Tab* PO 0.3 mg TID NEVA Administration Dextrose 12.5 gm 09/14/19 13:05 D50w Syringe 50 Ml* IV PUSH .FOR FS < 60 - SS PRN FS < 60 Diltiazem HCl 240 mg 09/15/19 09:00 09/22/19 10:04 Cardizem Cd Cap* PO 240 mg DAILY NEVA Administration Docusate Sodium 100 mg 09/14/19 21:00 09/22/19 10:04 Colace Cap* PO 100 mg BID NEVA Administration Insulin Human Lispro 0 - 12 units 09/14/19 16:30 09/22/19 17:31 Humalog* SUBCUT 1 units ACHS NEVA Administration Protocol Isosorbide Mononitrate 30 mg 09/14/19 18:00 09/22/19 17:32 Imdur Er Tab* PO 30 mg 1800 NEVA Administration Labetalol HCl 300 mg 09/14/19 21:00 09/22/19 10:04 Trandate Tab* PO 300 mg BID NEVA Administration Lamotrigine 25 mg 09/22/19 09:00 09/22/19 10:05 Lamictal Tab(*) PO 25 mg EVERY OTHER DAY NEVA Administration Levetiracetam 250 mg 09/21/19 09:00 09/22/19 10:05 Keppra Tab* PO 250 mg DAILY NEVA Administration Methocarbamol 750 mg 09/18/19 16:34 09/18/19 20:49 Robaxin Tab* PO 750 mg TID PRN Administration SPASMS Mupirocin 1 applic 09/15/19 09:00 09/22/19 10:05 Bactroban 2 % Oint* TOPICAL 1 applic DAILY NEVA Administration Pantoprazole Sodium 40 mg 09/14/19 21:00 09/22/19 10:05 Protonix Tab* PO 40 mg BID NEVA Administration Polyethylene Glycol/Electrolytes 17 gm 09/23/19 09:00 Miralax* PO DAILY NEVA Senna 2 tab 09/14/19 11:53 09/21/19 20:24 Senokot 8.6 Mg Tab* PO 2 tab BEDTIME PRN Administration CONSTIPATION Terazosin HCl 10 mg 09/14/19 21:00 09/21/19 20:24 Hytrin Cap* PO 10 mg BEDTIME NEVA Administration Warfarin Sodium 2 mg 09/22/19 17:00 09/22/19 17:38 Coumadin Tab(*) PO 2 mg DAILY@1700 NEVA Administration Protocol Vital Signs: Vital Signs Temp Pulse Resp BP Pulse Ox 98.7 F 70 16 148/49 100 09/22/19 18:23 09/22/19 18:23 09/22/19 18:23 09/22/19 18:23 09/22/19 18:23 Lab Results: Laboratory Results - last 24 hr 09/22/19 09/22/19 09/22/19 07:35 12:10 16:30 POC Glucose (mg/dL) 241 H 198 H 139 H Exam: GENERAL: No distress, looks older than stated age LUNGS: Clear bilaterally HEART: Regular rhythm ABDOMEN: Soft, +BS EXTREMITIES: right knee wound C/D/I NEUROLOGIC: Sensation diminished in feet. Motor 5/5 except RLE due to pain Assessment/Plan: 1. Right TKA: WBAT RLE. PT/OT 2. ESRD: PD. Rocaltrol 3. Seizures: Tapering off Keppra and onto Lamictal. 4. Diabetes: SSI 5. HTN: Catapres/Cardizem/Imdur/Labetalol/Hytrin 6. Intestinal AVM: Protonix BID 7: DVT Prophylaxis: Coumadin 2 mg daily, check INR in am, may need increase but have to be careful with Intestinal AVM 8. Memory dysfunction: Scored 14 on BIMS. BUILDING ENGINEER seeing for cognition 9. Urinary tract Infection: Cultures: Klebsiella, 75-100K. Will use Augmentin day 1/ renally dosed. F/U cultures 09/22/19 21:09
[2019-09-22] MEDS: Senna TAB 8.6 mg* TAB PO PRN (21:24)
[2019-09-22] MEDS: Terazosin CAP* 5 MG PO SCH (21:25)
[2019-09-23 05:42] LABS: ABS Basophils 0.1 10^3/ul (0-0.2); ABS Eosinophils 0.1 10^3/ul (0-0.6); ABS Lymphocytes 0.9 10^3/ul (1.0-4.8); Eosinophil % 1.4 %; Hematocrit 24 % (35-47); Hemoglobin 7.9 g/dL (12.0-16.0); Lymphocyte % 10.1 %; Mean Corpuscular HGB Conc 33 g/dL (31-36); Mean Corpuscular Hemoglobin 28 pg (27-31); Mean Corpuscular Volume 85 fL (80-97); Mean Platelet Volume 6.9 fL (7.4-10.4); Platelet Count 665 10^3/uL (150-450); Red Blood Count 2.81 10^6 /uL (3.70-4.87); Red Cell Distribution Width 18 % (10-15); White Blood Count 9.1 10^3/uL (3.5-10.8)
[2019-09-23 05:50] LABS: INR 1.54 (0.82-1.09)
[2019-09-23 05:56] LABS: Albumin 2.5 g/dL (3.2-5.2); Calcium 8.2 mg/dL (8.6-10.3); Potassium 4.2 mmol/L (3.5-5.0); Total Bilirubin 0.3 mg/dL (0.2-1.0)
[2019-09-23 06:02] LABS: Albumin/Globulin Ratio 0.8 (1-3); BUN/Creatinine Ratio 5.7 (8-20); EGFR African American 6.5 (>60); EGFR Non-African American 5.4 (>60); Globulin 3.2 g/dL (2-4); Total Protein 5.7 g/dL (6.4-8.9)
[2019-09-23] MEDS: Polyethylene Glycol 3350* 17 GM PACKET PO SCH (08:27)
[2019-09-23] MEDS: Docusate CAP* 100 MG PO SCH ×2 (08:27→20:32)
[2019-09-23] MEDS: levETIRAcetam TAB* 500 MG PO SCH (08:28)
[2019-09-23] MEDS: cloNIDine TAB* 0.1 MG PO SCH ×3 (08:28→20:32)
[2019-09-23] MEDS: amLODIPine TAB* 5 MG PO SCH (08:28)
[2019-09-23] MEDS: Pantoprazole TAB * 40 MG TAB PO SCH ×2 (08:28→20:32)
[2019-09-23] MEDS: Labetalol TAB* 300 MG PO SCH ×2 (08:40→20:31)
[2019-09-23] MEDS: Diltiazem CD CAP* 240 MG PO SCH (08:40)
[2019-09-23] MEDS: Calcitriol CAP* 0.25 MCG PO SCH (08:40)
[2019-09-23] MEDS: Insulin LISPRO* 1 UNITS UNIT SUBCUT SCH ×4 (08:55→20:53)
[2019-09-23] MEDS ORDERED: Miconazole VAG SUPP* 200 MG SUP VAGINAL SCH (17:00)
--- NOTE | 2019-09-23 17:04 | PN ---
Progress Note Date of Service: 09/23/19 Note: ELDA COTTO was visited. Therapy notes read and reviewed. She has no complaints and thinks she is ready for discharge tomorrow. Her granddaughter will assist her with lifting dialysis bags. Urine culture shows Klebsiella resistant to Augmentin, [facility] She thinks she may have a yeast infection from the Bactrim Current Medications: Active Medications Generic Name Dose Route Start Last Admin Trade Name Freq PRN Reason Stop Dose Admin Acetaminophen 650 mg 09/14/19 11:53 09/22/19 07:54 Tylenol Tab* PO 650 mg Q6H PRN Administration MILD PAIN or TEMP > 100.4 Hydrocodone Bitart/Acetaminophen 1 tab 09/18/19 16:33 09/20/19 09:22 [place] 5-325 Tab* PO 1 tab Q4H PRN Administration PAIN - MODERATE Hydrocodone Bitart/Acetaminophen 2 tab 09/18/19 16:33 09/19/19 23:41 [place] 5-325 Tab* PO 2 tab Q4H PRN Administration PAIN - SEVERE Amlodipine Besylate 10 mg 09/15/19 09:00 09/23/19 08:28 Norvasc Tab* PO 10 mg DAILY NEVA Administration Calcitriol 0.25 mcg 09/15/19 09:00 09/23/19 08:40 Rocaltrol Cap* PO 0.25 mcg DAILY NEVA Administration Clonidine HCl 0.3 mg 09/14/19 14:00 09/23/19 13:51 Catapres Tab* PO 0.3 mg TID NEVA Administration Dextrose 12.5 gm 09/14/19 13:05 D50w Syringe 50 Ml* IV PUSH .FOR FS < 60 - SS PRN FS < 60 Diltiazem HCl 240 mg 09/15/19 09:00 09/23/19 08:40 Cardizem Cd Cap* PO 240 mg DAILY NEVA Administration Docusate Sodium 100 mg 09/14/19 21:00 09/23/19 08:27 Colace Cap* PO 100 mg BID NEVA Administration Insulin Human Lispro 0 - 12 units 09/14/19 16:30 09/23/19 12:00 Humalog* SUBCUT 2 units ACHS NEVA Administration Protocol Isosorbide Mononitrate 30 mg 09/14/19 18:00 09/22/19 17:32 Imdur Er Tab* PO 30 mg 1800 NEVA Administration Labetalol HCl 300 mg 09/14/19 21:00 09/23/19 08:40 Trandate Tab* PO 300 mg BID NEVA Administration Lamotrigine 25 mg 09/22/19 09:00 09/22/19 10:05 Lamictal Tab(*) PO 25 mg EVERY OTHER DAY NEVA Administration Levetiracetam 250 mg 09/21/19 09:00 09/23/19 08:28 Keppra Tab* PO 250 mg DAILY NEVA Administration Methocarbamol 750 mg 09/18/19 16:34 09/18/19 20:49 Robaxin Tab* PO 750 mg TID PRN Administration SPASMS Miconazole Nitrate 200 mg 09/23/19 17:00 Miconazole Vag Supp* VAGINAL 09/25/19 17:01 Q24H [facility] Mupirocin 1 applic 09/15/19 09:00 09/22/19 10:05 Bactroban 2 % Oint* TOPICAL 1 applic DAILY NEVA Administration Pantoprazole Sodium 40 mg 09/14/19 21:00 09/23/19 08:28 Protonix Tab* PO 40 mg BID NEVA Administration Polyethylene Glycol/Electrolytes 17 gm 09/23/19 09:00 09/23/19 08:27 Miralax* PO 17 gm DAILY NEVA Administration Senna 2 tab 09/14/19 11:53 09/22/19 21:24 Senokot 8.6 Mg Tab* PO 2 tab BEDTIME PRN Administration CONSTIPATION Terazosin HCl 10 mg 09/14/19 21:00 09/22/19 21:25 Hytrin Cap* PO 10 mg BEDTIME NEVA Administration Trimethoprim/Sulfamethoxazole 1 tab 09/23/19 21:00 Bactrim Ss 400/80 Tab* PO 2100 NEVA Warfarin Sodium 2 mg 09/22/19 17:00 09/22/19 17:38 Coumadin Tab(*) PO 2 mg DAILY@1700 NEVA Administration Protocol Vital Signs: Vital Signs Temp Pulse Resp BP Pulse Ox 98.5 F 72 16 149/46 98 09/23/19 16:41 09/23/19 16:41 09/23/19 16:41 09/23/19 16:41 09/23/19 16:41 Lab Results: Laboratory Results - last 24 hr 09/22/19 09/23/19 09/23/19 20:26 05:29 05:29 WBC 9.1 RBC 2.81 L Hgb 7.9 L Hct 24 L MCV 85 MCH 28 MCHC 33 RDW 18 H Plt Count 665 H D MPV 6.9 L Neut % (Auto) 76.7 Lymph % (Auto) 10.1 [place] % (Auto) 10.9 Eos % (Auto) 1.4 Baso % (Auto) 0.9 Absolute Neuts (auto) 7.0 Absolute Lymphs (auto) 0.9 L Absolute Monos (auto) 1.0 H Absolute Eos (auto) 0.1 Absolute Basos (auto) 0.1 Absolute Nucleated RBC 0.0 Nucleated RBC % 0.0 INR (Anticoag Therapy) Sodium 132 L Potassium 4.2 Chloride 96 L Carbon Dioxide 25 Anion Gap 11 BUN 43 H Creatinine 7.51 H Est GFR ( Amer) 6.5 Est GFR (Non-Af Amer) 5.4 BUN/Creatinine Ratio 5.7 L Glucose 244 H POC Glucose (mg/dL) 144 H Calcium 8.2 L Total Bilirubin 0.30 AST 12 L ALT 4 L Alkaline Phosphatase 101 Total Protein 5.7 L Albumin 2.5 L Globulin 3.2 Albumin/Globulin Ratio 0.8 L 09/23/19 05:29 WBC RBC Hgb Hct MCV MCH MCHC RDW Plt Count MPV Neut % (Auto) Lymph % (Auto) [place] % (Auto) Eos % (Auto) Baso % (Auto) Absolute Neuts (auto) Absolute Lymphs (auto) Absolute Monos (auto) Absolute Eos (auto) Absolute Basos (auto) Absolute Nucleated RBC Nucleated RBC % INR (Anticoag Therapy) 1.54 H Sodium Potassium Chloride Carbon Dioxide Anion Gap BUN Creatinine Est GFR ( Amer) Est GFR (Non-Af Amer) BUN/Creatinine Ratio Glucose POC Glucose (mg/dL) Calcium Total Bilirubin AST ALT Alkaline Phosphatase Total Protein Albumin Globulin Albumin/Globulin Ratio Exam: GENERAL: No distress, looks older than stated age LUNGS: Clear bilaterally HEART: Regular rhythm ABDOMEN: Soft, +BS EXTREMITIES: right knee wound C/D/I NEUROLOGIC: Sensation diminished in feet. Motor 5/5 except RLE due to pain Assessment/Plan: 1. Right TKA: WBAT RLE. PT/OT 2. ESRD: PD. Rocaltrol 3. Seizures: Tapering off Keppra and onto Lamictal. 4. Diabetes: SSI 5. HTN: Catapres/Cardizem/Imdur/Labetalol/Hytrin 6. Intestinal AVM: Protonix BID 7: DVT Prophylaxis: Coumadin 2 mg daily, check INR, may need increase but have to be careful with Intestinal AVM 8. Memory dysfunction: Scored 14 on BIMS. CALIBRATION LABORATORY TECHNICIAN seeing for cognition 9. Urinary tract Infection: Cultures: Klebsiella, 75-100K. Will use Bactrim SS day 08/27 renally dosed. 09/23/19 17:05
[2019-09-23] MEDS: Mupirocin 2% OINT* TUBE TOPICAL SCH (17:18)
[2019-09-23] MEDS: Isosorbide Mononitrate ER TAB* 30 MG PO SCH (17:52)
[2019-09-23] MEDS: Warfarin TAB(*) 2 MG PO SCH (17:52)
[2019-09-23] MEDS: Terazosin CAP* 5 MG PO SCH (20:32)
[2019-09-23] MEDS: HYDROcodone/ACETAMIN 5-325 MG* 1 TAB PO PRN (20:56)
[2019-09-23] MEDS ORDERED: Sulfamethox/Trimethoprim SS 400/80* TAB PO SCH (21:00)
[2019-09-24] MEDS: Methocarbamol TAB* 500 MG PO PRN (02:25)
[2019-09-24] MEDS: HYDROcodone/ACETAMIN 5-325 MG* 1 TAB PO PRN (02:25)
[2019-09-24 06:22] VITALS: BP 150/57
[2019-09-24] MEDS: Pantoprazole TAB * 40 MG TAB PO SCH (08:54)
[2019-09-24] MEDS: Diltiazem CD CAP* 240 MG PO SCH (08:54)
[2019-09-24] MEDS: amLODIPine TAB* 5 MG PO SCH (08:54)
[2019-09-24] MEDS: lamoTRIgine TAB(*) 25 MG PO SCH (08:54)
[2019-09-24] MEDS: Docusate CAP* 100 MG PO SCH (08:54)
[2019-09-24] MEDS: Calcitriol CAP* 0.25 MCG PO SCH (08:54)
[2019-09-24] MEDS: cloNIDine TAB* 0.1 MG PO SCH (08:54)
[2019-09-24] MEDS: Labetalol TAB* 300 MG PO SCH (08:54)
[2019-09-24] MEDS: levETIRAcetam TAB* 500 MG PO SCH (08:54)
[2019-09-24] MEDS: Insulin LISPRO* 1 UNITS UNIT SUBCUT SCH ×2 (08:59→12:31)
[2019-09-24] MEDS: Acetaminophen TAB* 325 MG PO PRN (08:59)
[2019-09-24] MEDS: Polyethylene Glycol 3350* 17 GM PACKET PO SCH (09:02)
[2019-09-24] MEDS: Mupirocin 2% OINT* TUBE TOPICAL SCH (10:42)
--- NOTE | 2019-09-24 15:17 | DS ---
[facility]: Dr. Conchita De León; Dr. Doyle, Nephrology * DISCHARGE SUMMARY: DATE OF ADMISSION: 09/14/19 DATE OF DISCHARGE: 09/24/19 DISCHARGE DIAGNOSES: 1. Right total knee replacement. 2. Seizure disorder. 3. End-stage renal disease, on hemodialysis. 4. Urinary tract infection. 5. Vaginal candidiasis. 6. Hypertension. 7. Diabetes. 8. Intestinal arteriovenous malformations. 9. Cognitive decline. HISTORY OF PRESENT ILLNESS AND HOSPITAL COURSE: For complete history of the events leading up to her rehab stay, please see the history and physical dictated by me on 09/14/19. While on the rehab unit, the patient was maintained on Coumadin for DVT prophylaxis. Her wound healed well and her angle were able to be removed prior to discharge. The patient did have a foul -smelling urine. A urinalysis was sent, which eventually grew out klebsiella. She was treated with a 4-day course of single strength Bactrim once a day. She still had 3 days of treatment at the time of discharge. The antibiotic caused her to have a yeast infection and she was treated with Monistat topically with a vaginal suppository. The patient had been started on Keppra for seizure disorder while on the acute hospital service. She had felt that the Keppra was making her depressed. She did have followup with Neurology, who decided to begin transitioning her off Keppra and onto Lamictal. She will need to follow up with Dr. Barkley 2 weeks after discharge. The patient otherwise was medically stable. She was seen by both Physical and Occupational Therapy and made good gains with both disciplines. With physical therapy at the time of admission, the patient required mod assist to do a transfer. She was able to ambulate with mod assist about 40 feet. By the time of discharge, the patient was independently ambulating 150 feet and independently transferring. With occupational therapy at the time of admission, the patient required supervision for upper body dressing, supervision for lower body dressing. She was mod assist for bathing, mod assist for toilet transfers, mod assist for toileting. By the time of discharge, she can do these things independently. The patient would need to set up peritoneal dialysis at home. It was felt that she was not able to safely do this independently. Her granddaughter had agreed to assist her with dialysis after discharge and getting it set up. The patient was discharged home on 09/24/19. DISCHARGE DIET: Renal. DISCHARGE MEDICATIONS: 1. Amlodipine 10 mg daily. 2. Rocaltrol 0.25 mcg daily. 3. Clonidine 0.3 mg 3 times a day. 4. Cardizem CD 240 mg daily. 5. [place] 5/325 one tablet every 4 hours as needed for pain. 6. Imdur ER 30 mg daily at 6 p.m. 7. Labetalol 300 mg twice daily. 8. Lamictal 25 mg every other day. 9. Keppra 250 mg orally daily. 10. Robaxin 750 mg 3 times a day as needed. 11. Miconazole vaginal suppository 200 mg vaginally every 24 hours for 2 days. 12. Bactrim single strength 1 tablet daily at 9 p.m. for 3 days. 13. Hytrin 10 mg at bedtime. 14. Coumadin 2 mg at 5 p.m. or as directed. 15. Bactroban applying it to her peritoneal dialysis site twice a day. SERVICES AFTER DISCHARGE: Through visiting nurse service, she will have home nursing and home physical therapy. Follow up with Dr. De León as well as with Dr. Lisa Jarvis. DISPOSITION: Home. CONDITION AT DISCHARGE: Good. [id number]/[facility] #: [id number] MTDGabriela
== END 2019-09-24 13:00 | disposition home health service (06) | DRG 559 ==
LOC: PMRU 09:35
PROVIDERS: ADMIT Physical Medicine & Rehabilitation; ATTEND Physical Medicine & Rehabilitation
PROC: 3E1M39Z Irrigation of Peritoneal Cavity using Dialysate, Percutaneous Approach (ICD-10-PCS; principal; 2019-09-14)
PROC: F07Z5ZZ Bed Mobility Treatment (ICD-10-PCS; 2019-09-14)
PROC: F07Z9ZZ Gait Training/Functional Ambulation Treatment (ICD-10-PCS; 2019-09-14)
PROC: F07Z8ZZ Transfer Training Treatment (ICD-10-PCS; 2019-09-14)
PROC: F07Z4ZZ Wheelchair Mobility Treatment (ICD-10-PCS; 2019-09-14)
PROC: F08Z0ZZ Bathing/Showering Techniques Treatment (ICD-10-PCS; 2019-09-14)
PROC: F08Z1ZZ Dressing Techniques Treatment (ICD-10-PCS; 2019-09-14)
PROC: F08Z3ZZ Feeding/Eating Treatment (ICD-10-PCS; 2019-09-14)
PROC: F08Z2ZZ Grooming/Personal Hygiene Treatment (ICD-10-PCS; 2019-09-14)
PROC: 3E1M39Z Irrigation of Peritoneal Cavity using Dialysate, Percutaneous Approach (ICD-10-PCS; 2019-09-15)
PROC: 3E1M39Z Irrigation of Peritoneal Cavity using Dialysate, Percutaneous Approach (ICD-10-PCS; 2019-09-16)
PROC: 3E1M39Z Irrigation of Peritoneal Cavity using Dialysate, Percutaneous Approach (ICD-10-PCS; 2019-09-17)
PROC: 3E1M39Z Irrigation of Peritoneal Cavity using Dialysate, Percutaneous Approach (ICD-10-PCS; 2019-09-18)
PROC: 3E1M39Z Irrigation of Peritoneal Cavity using Dialysate, Percutaneous Approach (ICD-10-PCS; 2019-09-19)
PROC: 3E1M39Z Irrigation of Peritoneal Cavity using Dialysate, Percutaneous Approach (ICD-10-PCS; 2019-09-20)
PROC: 3E1M39Z Irrigation of Peritoneal Cavity using Dialysate, Percutaneous Approach (ICD-10-PCS; 2019-09-21)
PROC: 3E1M39Z Irrigation of Peritoneal Cavity using Dialysate, Percutaneous Approach (ICD-10-PCS; 2019-09-22)
DX: Z47.1 Aftercare following joint replacement surgery (principal); N18.6 End stage renal disease; I12.0 Hypertensive chronic kidney disease with stage 5 chronic kidney disease or end stage renal disease; N39.0 Urinary tract infection, site not specified; Z96.651 Presence of right artificial knee joint; G93.81 Temporal sclerosis; G40.909 Epilepsy, unspecified, not intractable, without status epilepticus; E11.22 Type 2 diabetes mellitus with diabetic chronic kidney disease; B37.3 Candidiasis of vulva and vagina; R41.81 Age-related cognitive decline; B96.1 Klebsiella pneumoniae [K. pneumoniae] as the cause of diseases classified elsewhere; E78.5 Hyperlipidemia, unspecified; T36.8X5A Adverse effect of other systemic antibiotics, initial encounter; Y92.230 Patient room in hospital as the place of occurrence of the external cause; Q27.39 Arteriovenous malformation, other site; Z99.2 Dependence on renal dialysis; Z86.19 Personal history of other infectious and parasitic diseases; Z85.3 Personal history of malignant neoplasm of breast; Z88.8 Allergy status to other drugs, medicaments and biological substances; Z79.84 Long term (current) use of oral hypoglycemic drugs; Z79.899 Other long term (current) drug therapy
CPT/HCPCS: 36415; 80053; 81003; 81015; 85025; 85610; 87077; 87086; 87186; 90945; 93005; A9270-GY; G0257; G0515-GN; Q5106

== ENCOUNTER 2019-09-24 14:57 | Inpatient (IN) | payer MEDICARE ==
--- OUTSIDE RECORDS SUMMARY | 2019-09-24 15:23 | XMS REPORT ---
:1950 Author Organization [facility] Care Team Providers Name Role Phone Unavailable Unavailable Unavailable Problems Condition Condition Condition Status Onset Resolution Last Treating Comments Name Details Category Date Date Treatment Clinician Date Unilateral Unilateral Diagnosis Active Mairana primary primary 09-23 Carrier RN osteoarthri osteoarthri tis, right tis, right knee knee Allergies, Adverse Reactions, Alerts Allergy Name Allergy Status Severity Reaction(s) Onset Inactive Treating Comments Type Date Date Clinician diltiazem Unknown Active Unknown Reaction Kaylah Unknown 4-11 (Rasta) Alba [id number] enalapril Unknown Active Unknown Reaction Kaylah Unknown 4-11 (Rasta) Alba [id number] hydralazine Unknown Active Unknown Reaction Kaylah Unknown 4-11 (Rasta) Alba [id number] verapamil Unknown Active Unknown Reaction Kaylah Unknown 4-11 (Rasta) Alba [id number] Medications Ordered Filled Start Stop Current Ordering Indication Dosage Frequency Signature Comments Components Medication Medication Date Date Medication? Clinician (SIG) Name Name No Known No Known No None None None Medications Medications For This For This Patient Patient Procedures This patient has no known procedures. Results This patient has no known results.
--- NOTE | 2019-09-24 15:39 | ED ---
Complex/Multi-Sys Presentation - HPI Summary HPI Summary: Patient is a 69 y/o F presenting to [facility] with complaints of generalized weakness. Patient had a total right knee replacement at [facility]. She experienced a post-op seizure and was in the ICU for some time. She and was discharged around 1400 09/24/19. Patient went home and suddenly became weak. Hx of diabetes noted, finger stick BG was 80. Patient states that she has not been experiencing any issues with her knee replacement. She has no other complaints. Patient denies unilateral weakness, slurred speech, tingling/numbness. She is on peritoneal dialysis. Home medications and allergies are reviewed. Daughter is in the room. - History Of Current Complaint Chief Complaint: EDWeakness Time Seen by Provider: 09/24/19 15:36 Hx Obtained From: Patient Onset/Duration: Still Present Timing: Constant Severity Currently: None Associated Signs And Symptoms: Positive: Weakness - generalized - Allergies/Home Medications Allergies/Adverse Reactions: Allergies Allergy/AdvReac Type Severity Reaction Status Date / Time enalapril Allergy Swelling Verified 09/24/19 15:03 Of Face,Lips,& Throat diltiazem AdvReac Severe See Comment Verified 09/24/19 15:03 hydralazine AdvReac Palpitation Verified 09/24/19 15:03 s verapamil AdvReac Palpitation Verified 09/24/19 15:03 s Home Medications: Home Medications Mupirocin 2% OINT* [Bactroban 2 % Oint*] 1 applic TOPICAL BID 09/24/19 [History Confirmed 09/24/19] oxyCODONE/Acetamin 5/325 MG* [Percocet 5/325 TAB*] 1 tab PO Q4H PRN 09/24/19 [ History Confirmed 09/24/19] PMH/Surg Hx/FS Hx/Imm Hx Endocrine/Hematology History: Reports: Hx Diabetes, Hx Anemia Denies: Hx Anticoagulant Therapy, Hx Blood Disorders, Hx Thyroid Disease, Hx Unexplained Bleeding Cardiovascular History: Reports: Hx Cardiomegaly, Hx Hypercholesterolemia, Hx Hypertension, Hx Valvular Heart Disease, Other Cardiovascular Problems/ Disorders - mitral valve insufficiency Denies: Hx Angina, Hx Atrial Fibrillation, Hx Coronary Artery Disease, Hx Myocardial Infarction, Hx Pacemaker/ICD, Hx Syncope Respiratory History: Reports: Hx Pulmonary Edema Denies: Hx Asthma, Hx Chronic Obstructive Pulmonary Disease (COPD), Other Respiratory Problems/Disorders Comment Only: Hx Sleep Apnea - 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 History: Reports: Hx Chronic Renal Failure, Hx Dialysis - ESRD on peritoneal dialysis, Other Problems/Disorders - HX OF UTI Musculoskeletal History: Reports: Hx Orthopedic Injury - Left knee, Other Musculoskeletal History - VALGUS DEFORMITY, DEGENERATIVE JOINT DISEASE Denies: Hx Arthritis, Hx Osteoporosis Sensory History: Reports: Hx Cataracts, Hx Contacts or Glasses Denies: Hx Hearing Aid, Hx Hearing Problem Opthamlomology History: Reports: Hx Cataracts, Hx Contacts or Glasses Neurological History: Reports: Hx Headaches, Hx Nerve Disease - DIABETIC NEUROPATHY-BILATERAL FEET Denies: Other Neuro Impairments/Disorders Psychiatric History: Reports: Hx Anxiety Denies: Hx Panic Disorder, Other Psychiatric Issues/Disorders - Cancer History Cancer Type, Location and Year: Breast CA Hx Chemotherapy: No Hx Radiation Therapy: Yes - RIGHT BREAST - Surgical History Surgery Procedure, Year, and Place: Bilateral TKR, Lumpectomy, AVM repair ( intestine), Bilateral Cataract, Carpal Tunnel, Tubal, Dialysis catheter. Hx Anesthesia Reactions: No Infectious Disease History: No Infectious Disease History: Reports: Hx Hepatitis - C Denies: Hx of Known/Suspected MRSA, History Other Infectious Disease, Traveled Outside the [place] in Last 30 Days - Family History Known Family History: Positive: Cardiac Disease, Diabetes - Social History Alcohol Use: None Hx Substance Use: No Substance Use Type: Reports: None Hx Tobacco Use: Yes Smoking Status (MU): Former Smoker Type: Cigarettes Amount Used/How Often: 1/2 ppd Length of Time of Smoking/Using Tobacco: 25 years Have You Smoked in the Last Year: No Review of Systems Positive: Fatigue - generalized weakness Negative: Weakness, Paresthesia, Numbness, Slurred Speech All Other Systems Reviewed And Are Negative: Yes Physical Exam - Summary Physical Exam Summary: VITAL SIGNS: Reviewed. GENERAL: Patient is a well-developed and nourished female who is lying comfortable in the stretcher. Patient is not in any acute respiratory distress. HEAD AND FACE: No signs of trauma. No ecchymosis, hematomas or skull depressions. No sinus tenderness. EYES: PERRLA, EOMI x 2, No injected conjunctiva, no nystagmus. EARS: Hearing grossly intact. Ear canals and tympanic membranes are within normal limits. MOUTH: Oropharynx within normal limits. NECK: Supple, trachea is midline, no adenopathy, no JVD, no carotid bruit, no c- spine tenderness, neck with full ROM. CHEST: Symmetric, no tenderness at palpation. LUNGS: Clear to auscultation bilaterally. No wheezing or crackles. CVS: Regular rate and rhythm, S1 and S2 present, no murmurs or gallops appreciated. ABDOMEN: Patient has a dialysis port at left abdomen. Soft, non-tender. No signs of distention. No rebound, no guarding, and no masses palpated. Bowel sounds are normal. EXTREMITIES: FROM in all major joints, no edema, no cyanosis or clubbing. Incision at right knee is CDI. NEURO: Alert and oriented x 3. No acute neurological deficits. Speech is normal and follows commands. SKIN: Dry and warm. Triage Information Reviewed: Yes Vital Signs On Initial Exam: Initial Vitals Temp Pulse Resp BP Pulse Ox 99.0 F 78 16 154/68 94 09/24/19 15:01 09/24/19 15:01 09/24/19 15:01 09/24/19 15:01 09/24/19 15:01 Vital Signs Reviewed: Yes Procedures - Sedation Patient Received Moderate/Deep Sedation with Procedure: No Diagnostics - Vital Signs Vital Signs Temp Pulse Resp BP Pulse Ox 09/24/19 15:01 99.0 F 78 16 154/68 94 - Laboratory Lab Results: Lab Results 09/24/19 Range/Units 15:08 POC Glucose (mg/dL) 80 (70-100) mg/dL Result Diagrams: 09/24/19 15:54 09/24/19 15:53 Lab Statement: Any lab studies that have been ordered have been reviewed, and results considered in the medical decision making process. Complex Multi-Symp Course/Dx Assessment/Plan: Patient is a 69 y/o F presenting to [facility] with complaints of generalized weakness. Patient had a total right knee replacement at [facility]. She experienced a post-op seizure and was in the ICU for some time. She and was discharged around 1400 09/24/19. Patient went home and suddenly became weak. Hx of diabetes noted, finger stick BG was 80. Patient states that she has not been experiencing any issues with her knee replacement. She has no other complaints. Patient denies unilateral weakness, slurred speech, tingling/numbness. She is on peritoneal dialysis. Home medications and allergies are reviewed. Daughter is in the room. Blood test at her baseline. The patient reports that she is unable to care for herself at home and she wants to be admitted to the hospital. I discussed the case with Dr. Evans who accepted the patient for admission. Patient is hemodynamically stable alert oriented 3. - Diagnoses Provider Diagnoses: Weakness - Physician Notifications Discussed Care Of Patient With: Evan Melgar Time Discussed With Above Provider: 15:48 Instructed by Provider To: Other - Patient's case was discussed with Dr. Melgar. 1605 - Dr. Melgar in ED, he notes that they were planning to keep the patient until 09/28/19. However, patient and family insisted on discharge today and became upset when they were not discharged immediately. He notes that the patient will have to be a usp admit. 1615 - Patient's case discussed with Dr. Evans, Dr. Evans accepts for admission. Discharge ED - Sign-Out/Discharge Documenting (check all that apply): Patient Departure - admit - Discharge Plan Condition: Stable Disposition: ADMITTED TO [facility] Referrals: Conchita De León MD [Primary Care Provider] - - Billing Disposition and Condition Condition: STABLE Disposition: Admitted to [facility] - Attestation Statements Document Initiated by Anibal: Yes Documenting Scribe: OKSANA DUBOSE Provider For Whom Anibal is Documenting (Include Credential): XU GIRON MD Scribe Attestation: I, OKSANA DUBOSE, scribed for XU GIRON MD on 09/24/19 at 1858. Scribe Documentation Reviewed: Yes Provider Attestation: The documentation as recorded by the OKSANA boggs accurately reflects the service I personally performed and the decisions made by me, XU GIRON MD Status of Scribe Document: Viewed
[2019-09-24 16:08] LABS: ABS Basophils 0.1 10^3/ul (0-0.2); ABS Eosinophils 0.1 10^3/ul (0-0.6); ABS Lymphocytes 1.1 10^3/ul (1.0-4.8); ABS Monocytes 1.4 10^3/ul (0-0.8); ABS Neutrophils 7.6 10^3/ul (1.5-7.7); Eosinophil % 1.2 %; Hematocrit 26 % (35-47); Mean Corpuscular HGB Conc 34 g/dL (31-36); Mean Corpuscular Hemoglobin 29 pg (27-31); Mean Corpuscular Volume 84 fL (80-97); Platelet Count 696 10^3/uL (150-450); Red Blood Count 3.13 10^6 /uL (3.70-4.87); Red Cell Distribution Width 17 % (10-15); White Blood Count 10.4 10^3/uL (3.5-10.8)
[2019-09-24 16:17] LABS: Albumin 2.9 g/dL (3.2-5.2); Albumin/Globulin Ratio 0.8 (1-3); BUN/Creatinine Ratio 5.5 (8-20); Calcium 8.7 mg/dL (8.6-10.3); EGFR African American 6.3 (>60); EGFR Non-African American 5.2 (>60); Globulin 3.7 g/dL (2-4); Potassium 4.3 mmol/L (3.5-5.0); Total Bilirubin 0.3 mg/dL (0.2-1.0); Total Protein 6.6 g/dL (6.4-8.9)
[2019-09-24 16:18] LABS: Troponin I 0.01 ng/mL (<0.03)
[2019-09-24] MEDS ORDERED: oxyCODONE/Acetamin 5/325 MG* TAB PO PRN (16:55)
[2019-09-24] MEDS ORDERED: Methocarbamol TAB* 500 MG PO PRN (16:55)
[2019-09-24 17:00] LABS: TSH (Thyroid Stimulating Horm) 4.85 mcIU/mL (0.34-5.60)
[2019-09-24] MEDS ORDERED: Warfarin TAB(*) 2 MG PO SCH (17:00)
[2019-09-24] MEDS ORDERED: Miconazole VAG SUPP* 200 MG SUP VAGINAL SCH (17:00)
[2019-09-24] MEDS ORDERED: Dextrose 50% Syringe 50 ML* 25 GM/50 ML SYRINGE IV PUSH PRN (17:05)
[2019-09-24] MEDS ORDERED: Isosorbide Mononitrate ER TAB* 30 MG PO SCH (18:00)
[2019-09-24 18:43] LABS: INR 1.56 (0.82-1.09)
[2019-09-24 18:49] LABS: Urine Appearance Cloudy; Urine Bilirubin Negative (Negative); Urine Blood Negative (Negative); Urine Color Yellow; Urine Glucose 1+(50 mg/dL) (Negative); Urine Ketones Negative (Negative); Urine Nitrite Negative (Negative); Urine Protein 2+(100 mg/dL) (Negative); Urine Specific Gravity 1.015 (1.010-1.030); Urine Urobilinogen Negative (Negative)
[2019-09-24 18:57] LABS: Urine Bacteria Absent (Absent); Urine Red Blood Cell 1+(3-5/hpf) (Absent); Urine Squamous Epithelial Cell Present (Absent); Urine White Blood Cell 1+(6-10/hpf) (Absent)
--- NOTE | 2019-09-24 18:59 | HP ---
HOSPITAL MEDICINE HISTORY AND PHYSICAL: DATE OF ADMISSION: 09/24/19 ATTENDING PHYSICIAN: Dr. Muna De Paz * (dictation provided by Deepika Frances NP ). CHIEF COMPLAINT: Weakness. HISTORY OF PRESENT ILLNESS: Ms. Moreira is a 69-year-old female with a past medical history of diabetes; end-stage renal disease, on peritoneal dialysis; hyperlipidemia; hypertension; and recent right knee replacement on 09/08/19, with subsequent development of tonic-clonic seizures on 09/09/19, who was discharged to the [facility] for rehabilitation on 09/14/19, who presents today to the hospital with concern for weakness. Ms. Moreira was in PMR from 09/14/19 to 09/24/19. She was just discharged today. The patient states she was feeling great. She felt optimistic about doing well at home; however, shortly after getting home, she was feeling hungry and talked to her family about going out to get something to eat, but when she stood to leave she suddenly felt very weak and sat down on a chair. She said that she has felt so weak that she knew she would not be able to continue to care for herself at home even with the support of her granddaughter and therefore asked to be brought back to the emergency room. The patient has been evaluated by Dr. Melgar, who discharged her early today and says that she seems to be exactly as she was when she left and there were no new acute issues. The patient also states there are no new complaints or symptoms other than some just generalized weakness. In the emergency room, Ms. Moreira had labs, which showed no abnormalities that were changed from her baseline. She has a chronic anemia. She has end-stage renal disease. This was all reviewed with the patient that there was no real indication for admission, but the patient continued to have weakness and inability to care for herself and therefore arrangements are being made for her to be admitted shelter. PAST MEDICAL HISTORY: 1. Right knee replacement. 2. Seizure disorder. 3. End-stage renal disease, on peritoneal dialysis. 4. Urinary tract infection. 5. Vaginal candidiasis. 6. Hypertension. 7. Diabetes. 8. Intestinal arteriovenous malformations. 9. Cognitive decline. MEDICATIONS: 1. Amlodipine 10 mg p.o. daily. 2. Rocaltrol 0.25 mcg daily. 3. Clonidine 0.3 mg 3 times a day. 4. Cardizem CD 240 mg daily. 5. [place] 5/325 one tab q.4 hours p.r.n. pain. 6. Imdur ER 30 mg p.o. daily at 6 p.m. 7. Labetalol 300 mg twice a day. 8. Lamictal 25 mg every other day. 9. Keppra 250 mg oral daily. 10. Robaxin 750 mg 3 times a day as needed. 11. Miconazole vaginal suppository 200 mg vaginally every 24 hours for 2 days. 12. Bactrim single strength 1 tab daily at 9 p.m. for 3 days. 14. Hytrin 10 mg at bedtime. 15. Coumadin 2 mg at 5 p.m. 16. Bactroban twice daily to peritoneal dialysis site. ALLERGIES: To ENALAPRIL, , HYDRALAZINE, and VERAPAMIL. FAMILY HISTORY: Mother at age 38 related to diabetes. Father at 54 with a heart attack. She has 2 brothers, one of whom has had a heart attack. SOCIAL HISTORY: The patient is a former smoker and quit smoking in 2017. She is a former alcohol, sober since 2011. Her medical surrogate is Kwame Moinque. REVIEW OF SYSTEMS: A 14-point review of systems was completed with Ms. Moreira and all those not mentioned above were negative. PHYSICAL EXAMINATION GENERAL: Ms. Moreira is sitting up in the bed. She is in no acute distress. VITAL SIGNS: Temperature 99, pulse rate 78, respiratory rate 16, O2 saturation 94% on room air, and blood pressure 154/68. LUNGS: Clear to auscultation bilaterally with no accessory muscle use and good aeration. HEART: S1, S2. No murmur, rub, or gallop and regular. ABDOMEN: Soft, nontender with bowel sounds positive x4. EXTREMITIES: No cyanosis. No edema. NEURO: She is alert. She is oriented x3. She moves all extremities equally. There is no facial asymmetry or focal weakness. SKIN: Intact. DIAGNOSTIC STUDIES/LAB DATA: Sodium 132, potassium 4.3, chloride 95, serum bicarbonate 25, BUN 43, creatinine 7.75, glucose 73, magnesium 2. Troponin 0.01. WBC 10.4, hemoglobin 9, hematocrit 26, platelet count 696. An EKG shows a sinus rhythm with a heart rate of 79. ASSESSMENT AND PLAN: Ms. Moreira is a 69-year-old female with past medical history of end-stage renal disease, on peritoneal dialysis and recent right knee replacement with a subsequent seizure, who had just been discharged from [facility] earlier today, but when she arrived home she felt she was too weak to care for herself and is being placed on shelter care. Our plans are as follows: 1. Recent right knee replacement and weakness. Our plans will be for physical and occupational therapy. The patient may need a rehab stay in the subacute setting and Social Work and Case Management will be following. 2. End-stage renal disease, on peritoneal dialysis. We will be reaching out to the dialysis team and making sure that she has a supply she needs for continuing on peritoneal dialysis. 3. New-onset seizures. Plan to continue home medications. 4. Acute on chronic anemia. No change from baseline and actually is seeming a little bit improved. We will continue to monitor. 5. Type 2 diabetes. It does not appear that she was discharged on any medications. We will continue with a sliding scale while inpatient and we can adjust that as needed. It appears that at the beginning of the previous admission she was on Lantus, but we can adjust this and order as needed based on the findings of blood glucose levels in the hospital. 6. DVT prophylaxis with Coumadin. However, her INR was subtherapeutic at last check on 09/23/19. Repeat INR level pending. Rather than using heparin subcu, I will use SCDs given that she is using an oral anticoagulant. 7. Hypertension. Continue amlodipine, clonidine, diltiazem, isosorbide, labetalol. 8. Recent urinary tract infection. Continue course of treatment for urinary tract infection, which should be 3 more days. 9. Vulvovaginal candidiasis. Continue course of treatment with miconazole, which should be 2 more days. The patient will be admitted to the medical floor. TIME SPENT: Approximately 60 minutes was spent on the admission of this patient , more than half the time was spent with her at the bedside reviewing the events leading up to this hospitalization, performing the physical examination, and reviewing my plan of care. DEEPIKA FRANCES NP [id number]/[facility] #: [id number] ALLIE
[2019-09-24] MEDS ORDERED: Acetaminophen TAB* 325 MG PO PRN (19:22)
[2019-09-24] MEDS ORDERED: Warfarin TAB(*) 3 MG PO SCH (20:00)
[2019-09-24] MEDS ORDERED: Sulfamethox/Trimethoprim SS 400/80* TAB PO SCH (21:00)
[2019-09-24] MEDS ORDERED: Terazosin CAP* 5 MG PO SCH (21:00)
[2019-09-24] MEDS ORDERED: Heparin VIAL(*) 5000 UNITS/ML VIAL (FIVE THOUSAND) SUBCUT SCH (22:00)
[2019-09-24] MEDS: Labetalol TAB* 300 MG PO SCH (22:26)
[2019-09-24] MEDS: Mupirocin 2% OINT* TUBE TOPICAL SCH (22:27)
[2019-09-24] MEDS: cloNIDine TAB* 0.1 MG PO SCH (22:29)
[2019-09-25 06:17] LABS: INR 1.63 (0.82-1.09)
[2019-09-25] MEDS: cloNIDine TAB* 0.1 MG PO SCH (08:53)
[2019-09-25] MEDS: Insulin LISPRO* 1 UNITS UNIT SUBCUT SCH ×2 (08:54→12:45)
[2019-09-25] MEDS: Mupirocin 2% OINT* TUBE TOPICAL SCH (08:55)
[2019-09-25] MEDS ORDERED: levETIRAcetam TAB* 500 MG PO SCH (09:00)
[2019-09-25] MEDS ORDERED: Calcitriol CAP* 0.25 MCG PO SCH (09:00)
[2019-09-25] MEDS ORDERED: Diltiazem CD CAP* 240 MG PO SCH (09:00)
[2019-09-25] MEDS ORDERED: amLODIPine TAB* 5 MG PO SCH (09:00)
[2019-09-25] MEDS: Labetalol TAB* 300 MG PO SCH (09:52)
[2019-09-25 12:48] VITALS: BP 137/52
[2019-09-25] MEDS ORDERED: Warfarin TAB(*) 2 MG PO SCH (17:00)
--- NOTE | 2019-09-25 22:40 | DS ---
DISCHARGE SUMMARY: DATE OF ADMISSION: 09/24/19 DATE OF DISCHARGE: 09/25/19 ATTENDING PHYSICIAN: Dr. Jolie Pereira * (dictated by Allan Mathis NP) PRIMARY DIAGNOSIS: Right knee replacement and weakness. SECONDARY DIAGNOSES: 1. Seizure disorder. 2. End-stage renal disease, on peritoneal dialysis. 3. Urinary tract infection. 4. Vaginal candidiasis. 5. Hypertension. 6. Diabetes. 7. Intestinal arteriovenous malformation. 8. Cognitive decline. DISCHARGE HOME MEDICATIONS: No new home medications. Continued home medications: 1. Amlodipine 10 mg p.o. daily. 2. Rocaltrol 0.25 mcg daily. 3. Clonidine 0.3 mg 3 times a day. 4. Cardizem CD 240 mg daily. 5. [place] 5/325 one tab p.o. q.4 hours p.r.n. pain. 6. Imdur ER 30 mg p.o. daily at 6 p.m. 7. Labetalol 300 mg twice a day. 8. Lamictal 25 mg every other day. 9. Keppra 250 mg orally daily. 10. Robaxin 750 mg 3 times a day as needed. 11. Miconazole vaginal suppository 200 mg vaginally every 24 hours for 2 days. 12. Bactrim single strength 1 tab daily at 9 p.m. for 3 days. 13. Hytrin 10 mg at bedtime. 14. Coumadin 2 mg at 5 p.m. 15. Bactrim twice daily at the peritoneal dialysis site. No home medications were changed or discontinued. HISTORY OF PRESENT ILLNESS/HOSPITAL COURSE: Ms. Moreira is a 69-year-old female with past medical history significant for right knee replacement, seizure disorder, ESRD, UTI, vaginal candidiasis, hypertension, diabetes, who presented to the emergency department on 09/24/19 with complaints of weakness. Please see history and physical dictated by Deepika Frances NP, for complete summary of the events of hospitalization; but, in short, the patient had been discharged on the same day that she presented to the emergency department, but when she got home she reports that she suddenly felt weak, therefore presented to the emergency room. While in the emergency department, the discharging doctor, Dr. Melgar, who had discharged her earlier in the day evaluated her and reported that she seems to be exactly as she was when she left and there were no acute issues. While in the emergency department, she had a workup that revealed no abnormalities that were changed from her baseline. Given this, the patient was offered alf admission. During this hospitalization, the patient remained under alf care. The patient received her normal medications. The patient was visited by the renal social worker this morning and stated that she was unaware that being alf meant that she was responsible for the bill. Therefore, she requested to be discharged. This commercial underwriter presented at the bedside and discussed discharge with the patient. She reports that she no longer feels weak. She reports she believes that the weakness that brought her to the ER yesterday was due to low blood sugar. She reports that she had not eaten anything. She reports that in the way to the hospital she ate an apple which brought her blood sugar to 80, therefore she must have had a lower blood sugar before that. The patient reports she feels "great" and ready to go home. REVIEW OF SYSTEMS: A 14-point review of systems was completed and all were negative. PHYSICAL EXAMINATION: General: Mrs. Moreira is sitting in bed. She appears in no acute distress. She appears the stated age. Vital Signs: Temp 98.2, HR 72 , RR 16, O2 saturation 99% on room air, BP 137/52. HEENT: Sclerae without icterus. Oral mucosa is moist without lesion. Posterior pharynx is clear. Neck : No lymphadenopathy. No pain on palpation. Respiratory: Symmetrical chest expansion. No accessory muscle use. Lungs are clear to auscultation. CV: Regular rate and rhythm. S1 and S2 present. No murmurs, rubs, or gallops. Extremities: Skin is warm and smooth bilaterally. No edema. No clubbing or cyanosis. Pedal pulses 2+ bilaterally. Musculoskeletal: No pain or deformities. Abdomen: Abdomen is soft and nontender to palpation. Bowel sounds normoactive. Peritoneal dialysis site dressing is benign. Neuro: Awake , alert, and oriented x4. Motor strength is 5/5 in the upper and lower extremities. Skin: Grossly intact. Dressing to right knee is clean, dry, and intact. DIAGNOSTIC STUDIES/LABORATORY DATA: WBC 10.4, hemoglobin 9, hematocrit 26, platelet 696. Sodium 132, potassium 4.3, chloride 95, carbon-dioxide 25, BUN 43 , creatinine 7.75. DISCHARGE PLAN: 1. Right knee replacement and weakness: The patient reports weakness has resolved. The patient is already set up with home services per renal social worker from her discharge on 09/24/19. We will not make any changes to the patient's discharge plan. The patient should follow up with Dr. Jarvis as previously recommended. 2. ESRD, on peritoneal dialysis: The patient reports that she has the supplies she needs at home and therefore will be doing her peritoneal dialysis when she returns home today. The patient is to follow up with her deliverer merchandise as recommended. 3. New-onset seizures: The patient should continue her home medications and follow up with Dr. Barkley as recommended. 4. Acute on chronic anemia: There is no change from her baseline and she actually looked more improved. The patient should follow up with her primary care for a repeat CBC. 5. Type 2 diabetes: The patient is not on any home medications for type 2 diabetes. Therefore, we will defer this to her primary care provider. 6. Followup: The patient should follow up with Dr. Jarvis in 1 month. The patient should follow up with Dr. Barkley as previously recommended. The patient should follow up with her primary care in 1 to 3 days. I discussed the patient's discharge with renal social worker who states that she has already set up with services at home from her discharge on 09/24/19. We have not made any changes to those plans. The patient has visiting nurse services who will assist with monitoring INR, PT/OT, and other assessments. 7. Education. The patient is educated on signs and symptoms of new or worsening condition, when to return to the emergency department. The patient stated understanding. This is a summarized report of a complex medical history and hospital stay. For further details, please see entire medical record. TIME SPENT: Approximately 35 minutes was spent on this discharge, greater than half that time was spent [id number] with the patient discussing discharge plans and instructions. This plan has been discussed with my attending Dr. Pereira who agrees with my plan of care. ALLAN MATHIS, MARK [id number]/[facility] #: [id number] ALLIE
[2019-09-26] MEDS ORDERED: lamoTRIgine TAB(*) 25 MG PO SCH (09:00)
== END 2019-09-25 11:55 | disposition home health service (06) | DRG 947 ==
LOC: ED 14:57 → MED 16:45
PROVIDERS: ADMIT Student in an Organized Health Care Education/Training Program; ATTEND Internal Medicine
DX: R53.1 Weakness (principal); N18.6 End stage renal disease; I12.0 Hypertensive chronic kidney disease with stage 5 chronic kidney disease or end stage renal disease; N39.0 Urinary tract infection, site not specified; E11.22 Type 2 diabetes mellitus with diabetic chronic kidney disease; E78.00 Pure hypercholesterolemia, unspecified; G47.30 Sleep apnea, unspecified; K21.9 Gastro-esophageal reflux disease without esophagitis; K58.9 Irritable bowel syndrome, unspecified; E11.42 Type 2 diabetes mellitus with diabetic polyneuropathy; Z96.653 Presence of artificial knee joint, bilateral; B37.3 Candidiasis of vulva and vagina; R41.81 Age-related cognitive decline; E78.5 Hyperlipidemia, unspecified; G40.909 Epilepsy, unspecified, not intractable, without status epilepticus; D63.1 Anemia in chronic kidney disease; F41.9 Anxiety disorder, unspecified; Z85.3 Personal history of malignant neoplasm of breast; Z92.3 Personal history of irradiation; Z88.8 Allergy status to other drugs, medicaments and biological substances; Z99.2 Dependence on renal dialysis; Z87.891 Personal history of nicotine dependence; Z98.42 Cataract extraction status, left eye; Z98.41 Cataract extraction status, right eye; Z87.440 Personal history of urinary (tract) infections; Z79.01 Long term (current) use of anticoagulants
CPT/HCPCS: 36415; 80053; 81003; 81015; 83735; 84443; 84484; 85025; 85610; 87086; 93005; 99284; A9270-GY

== ENCOUNTER 2019-10-06 16:35 | Inpatient (IN) | payer MEDICARE ==
[2019-10-06 17:06] LABS: Hematocrit 16 % (35-47); Hemoglobin 5.5 g/dL (12.0-16.0); Mean Corpuscular HGB Conc 34 g/dL (31-36); Mean Corpuscular Hemoglobin 29 pg (27-31); Mean Corpuscular Volume 85 fL (80-97); Mean Platelet Volume 7.4 fL (7.4-10.4); Platelet Count 684 10^3/uL (150-450); Red Blood Count 1.88 10^6 /uL (3.70-4.87); Red Cell Distribution Width 17 % (10-15); White Blood Count 9.1 10^3/uL (3.5-10.8)
[2019-10-06 17:10] LABS: INR 1.98 (0.82-1.09)
[2019-10-06 17:18] LABS: Albumin 2.9 g/dL (3.2-5.2); Albumin/Globulin Ratio 0.9 (1-3); Calcium 8.4 mg/dL (8.6-10.3); EGFR African American 6.3 (>60); EGFR Non-African American 5.2 (>60); Globulin 3.4 g/dL (2-4); Total Bilirubin 0.2 mg/dL (0.2-1.0); Total Protein 6.3 g/dL (6.4-8.9)
--- OUTSIDE RECORDS SUMMARY | 2019-10-06 17:25 | XMS REPORT ---
:1950 Author Organization [facility] Care Team Providers Name Role Phone Unavailable Unavailable Unavailable Problems Condition Condition Condition Status Onset Resolution Last Treating Comments Name Details Category Date Date Treatment Clinician Date Aftercare Aftercare Diagnosis Active [place] following following 2 Carrier RN joint joint replacement replacement surgery surgery Hypertensiv Hypertensiv Diagnosis Active [place] e chronic e chronic 09-22 Carrier RN kidney kidney disease disease with stage with stage 5 chronic 5 chronic kidney kidney disease or disease or end stage end stage renal renal disease disease Type 2 Type 2 Diagnosis Active [place] diabetes diabetes 09-22 Carrier RN mellitus mellitus with with diabetic diabetic chronic chronic 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 09-22 Carrier RN disease disease Epilepsy, Epilepsy, Diagnosis Active [place] unspecified unspecified 09-22 Carrier RN , not , not intractable intractable , without , without status status epilepticus epilepticus Urinary Urinary Diagnosis Active [place] tract tract 09-22 Carrier RN infection, infection, site not site not specified specified Anemia in Anemia in Diagnosis Active [place] chronic chronic Carrier RN kidney kidney disease disease Candidiasis Candidiasis Diagnosis Active [place] of vulva of vulva Carrier RN and vagina and vagina Age-related Age-related Diagnosis Active [place] cognitive cognitive Carrier RN decline decline 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 Carrier RN artificial artificial knee joint knee joint 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 Active [place] (current) (current) Carrier RN use of use of opiate opiate analgesic analgesic MCC MCC Diagnosis Active [place]iana (current) (current) Carrier RN use of use of anticoagula anticoagula nts nts Other long Other long Diagnosis Active [place] term term Carrier RN (current) (current) drug drug therapy therapy 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 renal 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 dialysis Allergies, Adverse Reactions, Alerts Allergy Name Allergy Status Severity Reaction(s) Onset Inactive Treating Comments Type Date Date Clinician diltiazem Unknown Active Unknown Reaction Kaylah Unknown 4-11 (Rasta) Alba [id number] enalapril Unknown Active Unknown Reaction Kaylah Unknown 4-11 (Rasta) [place]ba [id number] hydralazine Unknown Active Unknown Reaction Kaylah Unknown 4-11 ([place]asta) [place]ba [id number] verapamil Unknown Active Unknown Reaction Kaylah Unknown 4-11 (Rasta) [place]ba [id number] Medications Ordered Filled Start Stop Current Ordering Indication Dosage Frequency Signature Comments Components Medication Medication Date Date Medication? Clinician (SIG) Name Name No Known No Known No None None None Medications Medications For This For This Patient Patient Procedures This patient has no known procedures. Results This patient has no known results.
--- OUTSIDE RECORDS SUMMARY | 2019-10-06 17:25 | XMS REPORT ---
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 renal 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 Allergies, Adverse Reactions, Alerts Allergy Name Allergy Status Severity Reaction(s) Onset Inactive Treating Comments Type Date Date Clinician diltiazem Unknown Active Unknown Reaction Kaylah Unknown 4-11 ([place]asta) [place]ba [id number] enalapril Unknown Active Unknown Reaction Kaylah Unknown 4-11 (Rasta) Alba [id number] hydralazine Unknown Active Unknown Reaction Kaylah Unknown 4-11 (Rasta) Alba [id number] verapamil Unknown Active Unknown Reaction Kaylah Unknown 4-11 ([place]asta) Alba [id number] Medications Ordered Filled Start Stop Current Ordering Indication Dosage Frequency Signature Comments Components Medication Medication Date Date Medication? Clinician (SIG) Name Name No Known No Known No None None None Medications Medications For This For This Patient Patient Procedures This patient has no known procedures. Results This patient has no known results.
--- OUTSIDE RECORDS SUMMARY | 2019-10-06 17:25 | XMS REPORT ---
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 Allergies, Adverse Reactions, Alerts Allergy Name Allergy Status Severity Reaction(s) Onset Inactive Treating Comments Type Date Date Clinician diltiazem Unknown Active Unknown Reaction Kaylah Unknown 4-11 (Rasta) Alba [id number] enalapril Unknown Active Unknown Reaction Kaylah Unknown 4-11 ([place]asta) Alba [id number] hydralazine Unknown Active Unknown Reaction Kaylah Unknown 4-11 ([place]asta) Alba [id number] verapamil Unknown Active Unknown Reaction Kaylah Unknown 4-11 (Rasta) Alba [id number] Medications Ordered Filled Start Stop Current Ordering Indication Dosage Frequency Signature Comments Components Medication Medication Date Date Medication? Clinician (SIG) Name Name No Known No Known No None None None Medications Medications For This For This Patient Patient Procedures This patient has no known procedures. Results This patient has no known results.
--- OUTSIDE RECORDS SUMMARY | 2019-10-06 17:25 | XMS REPORT ---
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 renal 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 dialysis Allergies, Adverse Reactions, Alerts Allergy Name Allergy Status Severity Reaction(s) Onset Inactive Treating Comments Type Date Date Clinician diltiazem Unknown Active Unknown Reaction Kaylah Unknown 4-11 (Rasta) Alba [id number] enalapril Unknown Active Unknown Reaction Kaylah Unknown 4-11 (Rasta) Alba [id number] hydralazine Unknown Active Unknown Reaction Kaylah Unknown 4-11 ([place]asta) Alba [id number] verapamil Unknown Active Unknown Reaction Kaylah Unknown 4-11 ([place]) Alba [id number] Medications Ordered Filled Start Stop Current Ordering Indication Dosage Frequency Signature Comments Components Medication Medication Date Date Medication? Clinician (SIG) Name Name No Known No Known No None None None Medications Medications For This For This Patient Patient Procedures This patient has no known procedures. Results This patient has no known results.
--- OUTSIDE RECORDS SUMMARY | 2019-10-06 17:25 | XMS REPORT ---
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 dialysis Allergies, Adverse Reactions, Alerts Allergy Name Allergy Status Severity Reaction(s) Onset Inactive Treating Comments Type Date Date Clinician diltiazem Unknown Active Unknown Reaction Kaylah Unknown 4-11 (Rasta) Alba [id number] enalapril Unknown Active Unknown Reaction Kaylah Unknown 4-11 ([place]) [place]ba [id number] hydralazine Unknown Active Unknown Reaction Kaylah Unknown 4-11 ([place]) [place]ba [id number] verapamil Unknown Active Unknown Reaction Kaylah Unknown 4-11 ([place]) Alba [id number] Medications Ordered Filled Start Stop Current Ordering Indication Dosage Frequency Signature Comments Components Medication Medication Date Date Medication? Clinician (SIG) Name Name No Known No Known No None None None Medications Medications For This For This Patient Patient Procedures This patient has no known procedures. Results This patient has no known results.
--- OUTSIDE RECORDS SUMMARY | 2019-10-06 17:25 | XMS REPORT ---
:1950 Author Organization [facility] Care Team Providers Name Role Phone Unavailable Unavailable Unavailable Problems This patient has no known problems. Allergies, Adverse Reactions, Alerts Allergy Name Allergy Status Severity Reaction(s) Onset Inactive Treating Comments Type Date Date Clinician diltiazem Unknown Active Unknown Reaction 0 Kaylah Unknown 4-11 (Rasta) Alba [id number] enalapril Unknown Active Unknown Reaction 20180 Kaylah Unknown 4-11 (Rasta) Alba [id number] hydralazine Unknown Active Unknown Reaction 2018 Kaylah Unknown 4-11 (Rasta) Alba [id number] verapamil Unknown Active Unknown Reaction 20180 Kaylah Unknown 4-11 (Rasta) Alba [id number] Medications Ordered Filled Start Stop Current Ordering Indication Dosage Frequency Signature Comments Components Medication Medication Date Date Medication? Clinician (SIG) Name Name No Known No Known No None None None Medications Medications For This For This Patient Patient Procedures This patient has no known procedures. Results This patient has no known results.
--- OUTSIDE RECORDS SUMMARY | 2019-10-06 17:25 | XMS REPORT ---
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 Diagnosis Active [place] (current) (current) Carrier RN use of use of anticoagula anticoagula nts nts Other long Other long Diagnosis Active [place] term term Carrier RN (current) (current) drug drug therapy therapy 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 renal 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 Allergies, Adverse Reactions, Alerts Allergy Name Allergy Status Severity Reaction(s) Onset Inactive Treating Comments Type Date Date Clinician diltiazem Unknown Active Unknown Reaction Kaylah Unknown 4-11 (Rasta) Alba [id number] enalapril Unknown Active Unknown Reaction Kaylah Unknown 4-11 (Rasta) Alba [id number] hydralazine Unknown Active Unknown Reaction Kaylah Unknown 4-11 ([place]) [place]ba [id number] verapamil Unknown Active Unknown Reaction Kaylah Unknown 4-11 (Rasta) Alba [id number] Medications Ordered Filled Start Stop Current Ordering Indication Dosage Frequency Signature Comments Components Medication Medication Date Date Medication? Clinician (SIG) Name Name No Known No Known No None None None Medications Medications For This For This Patient Patient Procedures This patient has no known procedures. Results This patient has no known results.
--- OUTSIDE RECORDS SUMMARY | 2019-10-06 17:25 | XMS REPORT ---
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 - Carrier RN osteoarthri osteoarthri tis, right tis, right knee knee Allergies, Adverse Reactions, Alerts Allergy Name Allergy Status Severity Reaction(s) Onset Inactive Treating Comments Type Date Date Clinician diltiazem Unknown Active Unknown Reaction Kaylah Unknown 4-11 ([place]asta) Alba [id number] enalapril Unknown Active Unknown Reaction Kaylah Unknown 4-11 (Rasta) Alba [id number] hydralazine Unknown Active Unknown Reaction Kaylah Unknown 4-11 (Rasta) Alba [id number] verapamil Unknown Active Unknown Reaction Kaylah Unknown 4-11 (Rasta) Alba [id number] Medications Ordered Filled Start Stop Current Ordering Indication Dosage Frequency Signature Comments Components Medication Medication Date Date Medication? Clinician (SIG) Name Name No Known No Known No None None None Medications Medications For This For This Patient Patient Procedures This patient has no known procedures. Results This patient has no known results.
--- OUTSIDE RECORDS SUMMARY | 2019-10-06 17:26 | XMS REPORT | Continuity of Care Document ---
:1950 External Reference #:[id number] Author Name Fortunato Ray MD, [facility], [facility] (transmitted by agent of provider Kathy Elizabeth) Address [address] [address] Care Team Providers Name Role Phone Tyron Garcia MD - Internal Care Team Information Chief Technician Medicine Jhonatan Carey MD - Infectious Care Team Information Chief Technician [phone] Disease Bryan Becker MD - Nephrology Care Team Information Chief Technician [phone] Ford Gracia MD - Dermatology Care Team Information Chief Technician [phone] Conchita De León M.D. 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 Onset: 05/06/2019 Knee joint effusion Lisa Jarvis M.D. Onset: 08/26/2019 Social History Type Date Description Comments Sex [...] Medications SIG Qnty Indications Ordering Date Provider Cipro take one tab twice 6tabs Lisa Jarvis, 08/29/2019 250mg Tablets a day for three M.D. days Omeprazole 1 by mouth every 30caps Sri Taylor, 08/25/2019 20mg day Capsules Calcitriol 1 by mouth every Unknown 06/26/2019 0.25mcg [...] 1units R06.02 Conchita De León [facility] with a seat and basket to use [...] 200units Tyron Luevano 01/30/2017 Needle/Mini/Ultrafine lantus and three Salome Garcia,FACP /31G X 3/16" times a day for [...] HCL Take 1 Tablet By 90tabs Rosario Lacy, 0.3mg Tablets Mouth Three Times M.D. Daily Medications Administered in Office Medication SIG Qnty Indications Ordering Provider Date Depomedrol 40MG Mariana Armenta M.D. 11/13/2016 Injection Immunizations CPT Code Status Date Vaccine Reaction Lot # [id number] Given 07/14/2018 Pneumonia Vaccine no immediate reaction [id number] noted 93311 Given 07/14/2018 Influenza Virus Vaccine, no immediate reaction [id number] Quadrivalent, Split, noted Preservative Free 05426 Given 06/11/2017 Influenza Virus Vaccine, [id number] Quadrivalent, Split, Preservative Free 70068 Given 04/20/2017 Pneumococcal Conjugate [id number] Vaccine 13 Valent For Intramuscular Use Vital [...] Date Facility Test Result H/L Range Note CBC Auto 09/24/2019 [facility] White Blood 10.4 10^3/uL Normal 3.5-10.[address] [place] [address] [phone] Red Blood Count 3.13 10^6/uL Low 3.70-4.87 Hemoglobin 9.0 g/dL Low 12.0-16.0 Hematocrit 26 % Low 35-47 Mean Corpuscular Volume 84 fL Normal 80-97 Mean Corpuscular Hemoglobin 29 pg Normal 27-31 Mean Corpuscular HGB Conc 34 g/dL Normal 31-36 Red Cell Distribution Width 17 % High 10-15 Platelet Count 696 10^3/uL High 150-450 Mean Platelet Volume 7.0 fL Low 7.4-10.4 Abs Neutrophils 7.6 10^3/uL Normal 1.5-7.7 Abs Lymphocytes 1.1 10^3/uL Normal 1.0-4.8 Abs Monocytes 1.4 10^3/uL High 0-0.8 Abs Eosinophils 0.1 10^3/uL Normal 0-0.6 Abs Basophils 0.1 10^3/uL Normal 0-0.2 Abs Nucleated RBC 0.0 10^3/uL Granulocyte % 73.2 % Lymphocyte % 11.0 % Monocyte % 13.7 % Eosinophil % 1.2 % Basophil % 0.9 % Nucleated Red Blood Cells % 0.0 Comp Metabolic Panel 09/24/2019 [facility] Sodium 132 mmol/L Low 135-[address] [place] [address] [phone] Potassium 4.3 mmol/L Normal 3.5-5.0 Chloride 95 mmol/L Low 101-111 Co2 Carbon Dioxide 25 mmol/L Normal 22-32 Anion Gap 12 mmol/L High 2-11 Glucose 73 mg/dL Normal 70-100 Blood Urea Nitrogen 43 mg/dL High 6-24 Creatinine 7.75 mg/dL High 0.51-0.95 BUN/Creatinine Ratio 5.5 Low 8-20 Calcium 8.7 mg/dL Normal 8.6-10.3 Total Protein 6.6 g/dL Normal 6.4-8.9 Albumin 2.9 g/dL Low 3.2-5.2 Globulin 3.7 g/dL Normal 2-4 Albumin/Globulin Ratio 0.8 Low 1-3 Total Bilirubin 0.30 mg/dL Normal 0.2-1.0 Alkaline Phosphatase 112 U/L High 34-104 Alt 5 U/L Low 7-52 Ast 15 U/L Normal 13-39 Egfr Non- 5.2 >60 Egfr 6.3 >60 1 Laboratory test 09/24/2019 [facility] Magnesium 2.0 mg/dL Normal 1.9-2.[address] [place], [place] [id number] [phone] Troponin-I (TnI) 0.01 ng/mL <0.03 2 TSH (Thyroid Stim Horm) 4.85 mcIU/mL Normal 0.34-5.60 Urinalysis Profile 09/24/2019 [facility] Urine Color Yellow [address] [place] [address] [phone] Urine Appearance Cloudy Urine Specific [place] 1.015 Normal 1.010-1.030 Urine pH 7.0 Normal 5-9 Urine Urobilinogen Negative Negative Urine Ketones Negative Negative Urine Protein 2+(100 mg/dL) Abnormal Negative Urine Leukocytes 2+ Abnormal Negative Urine Blood Negative Negative Urine Nitrite Negative Negative Urine Bilirubin Negative Negative Urine Glucose 1+(50 mg/dL) Abnormal Negative Urine White Blood Cell 1+(6-10/hpf) Abnormal Absent Urine Red Blood Cell 1+(3-5/hpf) Abnormal Absent Urine Bacteria Absent Absent Urine Squamous Epithelial Cell Present Abnormal Absent Urine Culture And 09/24/2019 [facility] Urine SEE RESULT [address] [place] [address] [phone] Inr/Protime 09/24/2019 [facility] Inr 1.56 High 0.[address] -1.0 [place] [address] [phone] Laboratory test 09/24/2019 [facility] Point of 80 mg/dL Normal 70-1 [address] Care Glucose 00 [place] [address] [phone] Urine Culture And 08/26/2019 [facility] Urine SEE RESULT [address] [place] [place] [address] [phone] Type & Screen 08/26/2019 [facility] Patient B Positive [address] [place] [address] [phone] Antibody Screen NEGATIVE Urinalysis Profile 08/26/2019 [facility] Urine Color Yellow [address] [place] [address] [phone] Urine Appearance Turbid Urine Specific [place] 1.017 Normal 1.010-1.030 Urine pH 5.0 Normal 5-9 Urine Urobilinogen Negative Negative Urine Ketones Trace Abnormal Negative Urine Protein 3+(>=500 mg/dL) Abnormal Negative Urine Leukocytes 3+ Abnormal Negative Urine Blood 1+ Abnormal Negative Urine Nitrite Negative Negative Urine Bilirubin Negative Negative Urine Glucose 1+(50 mg/dL) Abnormal Negative Urine White Blood Cell 3+(>20/hpf) Abnormal Absent Urine Red Blood Cell 1+(3-5/hpf) Abnormal Absent Urine Bacteria 2+ Abnormal Absent Urine Squamous Epithelial Cell Present Abnormal Absent Comp Metabolic 08/26/2019 [facility] Sodium 138 mmol/L Normal 135-[address] [place] [address] [phone] Potassium 4.2 mmol/L Normal 3.5-5.0 Chloride 100 mmol/L Low 101-111 Co2 Carbon Dioxide 29 mmol/L Normal 22-32 Anion Gap 9 mmol/L Normal 2-11 Glucose 196 mg/dL High 70-100 Blood Urea Nitrogen 31 mg/dL High 6-24 Creatinine 7.60 mg/dL High 0.51-0.95 BUN/Creatinine Ratio 4.1 Low 8-20 Calcium 8.9 mg/dL Normal 8.6-10.3 Total Protein 6.0 g/dL Low 6.4-8.9 Albumin 3.3 g/dL Normal 3.2-5.2 Globulin 2.7 g/dL Normal 2-4 Albumin/Globulin Ratio 1.2 Normal 1-3 Total Bilirubin 0.30 mg/dL Normal 0.2-1.0 Alkaline Phosphatase 89 U/L Normal 34-104 Alt 15 U/L Normal 7-52 Ast 18 U/L Normal 13-39 Egfr Non- 5.3 >60 Egfr 6.4 >60 7 CBC Auto 08/26/2019 [facility] White Blood 6.7 10^3/uL Normal 3.5-10.[address] [place] [address] [phone] Red Blood Count 3.13 10^6/uL Low 3.70-4.87 Hemoglobin 9.4 g/dL Low 12.0-16.0 Hematocrit 28 % Low 35-47 Mean Corpuscular Volume 88 fL Normal 80-97 Mean Corpuscular Hemoglobin 30 pg Normal 27-31 Mean Corpuscular HGB Conc 34 g/dL Normal 31-36 Red Cell Distribution Width 16 % High 10-15 Platelet Count 358 10^3/uL Normal 150-450 Mean Platelet Volume 8.0 fL Normal 7.4-10.4 Abs Neutrophils 4.6 10^3/uL Normal 1.5-7.7 Abs Lymphocytes 1.4 10^3/uL Normal 1.0-4.8 Abs Monocytes 0.7 10^3/uL Normal 0-0.8 Abs Eosinophils 0.1 10^3/uL Normal 0-0.6 Abs Basophils 0.1 10^3/uL Normal 0-0.2 Abs Nucleated RBC 0.0 10^3/uL Granulocyte % 68.2 % Lymphocyte % 20.3 % Monocyte % 9.8 % Eosinophil % 0.9 % Basophil % 0.8 % Nucleated Red Blood Cells % 0.1 Laboratory 08/26/2019 [facility] Partial 38.4 High 26.0-38.0 test finding [address] [place] [address] PTT [phone] Inr/Protime 08/26/2019 [facility] Inr 1.07 Normal 0.82-1.[address] [place] [address] [phone] Laboratory 08/25/2019 [facility] Hemoglobin 7.8 High 5-7 test finding A1c Hematocrit 06/10/2019 N2N/CCD Import Hematocrit 23.4 Low 37.0 - 47.0 Hemoglobin 06/10/2019 N2N/CCD Import Hemoglobin 7.9 Low 12.0 - 16.0 HCT Calc 06/10/2019 N2N/CCD Import HCT Calc 23.7 Low 37.0 - 47.0 (HGBX3) (HGBX3) Hemoglobin 06/10/2019 N2N/CCD Import Hemoglobin 8.0 High 0.0 - 5.6 A1c % A1c % Laboratory 06/07/2019 [facility] Hemoglobin 7.4 High 5-7 test finding A1c PTH Intact 05/27/2019 N2N/CCD Import PTH Intact 480 High 18 - 80 Hep B Surfce 05/27/2019 N2N/CCD Import Hep B Surfce Neg Neg Ag Ag Ferritin 05/27/2019 N2N/CCD Import Ferritin 1277 High 10 - 291 Hemoglobin 05/27/2019 N2N/CCD Import Hemoglobin 8.1 High 0.0 - 5.6 A1c % A1c % Calcium 05/27/2019 N2N/CCD Import Calcium 8.8 8.7 - 10.4 Corrected Corrected Alt/SGPT 05/27/2019 N2N/CCD Import Alt/SGPT 13 10 [...] Urea Nit Urine 342 Creat-Ur 144.09 Bsa ([place]) 1.77 Body WT (LBS) 158.58025 Height (Inches) 64 TBW David 33.07 Pna [...] KT/V Residual 0.69 KT/V Total PD 2.38 Lipid Profile 05/27/2019 N2N/CCD Import Cholesterol 172 0 - 199 Triglycerides 94 0 - 149 HDL 70 High 40 - 60 Chol/HDL Ratio 2.5 Low 3.3 - 5 LDL 83 0 - 99 VLDL-Chol (Calc) 19 0 - 29 Iron Panel 05/27/2019 N2N/CCD Import Iron 31 Low 50 - 170 Iron Saturation 10 Low 16 - 46 Tibc 296 250 - 450 Uibc 265 80 - 375 HGB + HCT 05/13/2019 N2N/CCD Import Hematocrit 25.0 Low 37.0 - 47.0 Hemoglobin 8.3 Low 12.0 - 16.0 HCT Calc (HGBX3) 24.9 Low 37.0 - 47.0 CBC Auto Diff 04/28/2019 N2N/CCD Import Nucleated [...] 3.5-5.0 Sodium 138 135-145 Albumin 3.2 3.2-5.2 [place] Corrected 04/28/2019 N2N/CCD Import [place] Corrected [...] 20-55 Tibc 283 228-428 Uibc <268 159-193 Iron Iron Bind Cap 04/28/2019 N2N/CCD Import Unsaturated Iron Binding < 268 Iron 58 50-212 % Iron Saturation 20 15-55 Transferrin 202 Low 203-362 Total Iron Binding Capacity 283 250-450 Phosphorus 04/28/2019 N2N/CCD Import Phosphorus 5.2 High 2.5-5.0 Laboratory test 04/15/2019 [facility] Cytology SEE RESULT [address] [place] [address] [phone] Lipid Profile 04/01/2019 N2N/CCD Import Cholesterol 175 0 - 199 Triglycerides 114 0 - 149 HDL 68 High 40 - 60 Chol/HDL Ratio 2.6 Low 3.3 - 5 LDL 84 0 - 99 VLDL-Chol (Calc) 23 0 - 29 Iron Panel 04/01/2019 N2N/CCD Import Iron 77 50 - 170 Iron Saturation 29 16 - 46 Tibc 265 250 - 450 Uibc 188 80 - 375 0416 04/01/2019 N2N/CCD Import BUN 52 High 9 - 23 Creatinine 6.48 High 0.50 - 1.10 NPCR PD 0.92 Creat-PD 2.36 Urea-PD 36 Urea CLR Ur/Bsa 3.9 Low 64 - 99 Cre CLR Ur/Bsa 7 Low 75 - 115 Urea CLR Ur 4.0 Minuts Collctd-Ur 1440 Tot.Vol.-Urine 750 Tot.Vol.-PDF 08709 Urea Gen Rate 9.9 Urea Nit Urine 403 Creat-Ur 95.09 Bsa ([place]) 1.79 Body WT (LBS) 162 Height (Inches) [...] KT/V Residual 1.22 KT/V Total PD 2.68 Chem I HD 04/01/2019 N2N/CCD Import Calcium [...] - 116 Albumin 3.2 3.2 - 4.8 CBC With Autodiff 04/01/2019 N2N/CCD Import Basophils 0.5 Neutrophils 67.3 Lymphocytes 22.6 Monocytes 6.9 Eosinophils [...] Calc (HGBX3) 34.8 Low 37.0 - 47.0 Glucose 04/01/2019 N2N/CCD Import Glucose 187 High 70 - 99 Alt/SGPT 04/01/2019 N2N/CCD Import Alt/SGPT 18 10 - 49 Calcium Corrected 04/01/2019 N2N/CCD Import Calcium Corrected 9.5 8.7 - 10.4 1 Because ethnic data is not always [...] 5 Kidney failure <15 (or dialysis) 2 Troponin-I testing on Plasma Separator Tubes (PST) has a known false positive rate of 0.20-0.40%. All positive troponins reflex immediately to secondary confirmatory testing. Using the [employer] DxI 800 Access Immunoassay systems, the 99th percentile upper reference limit was demonstrated to be < 0.03 ng/mL. 3 SEE RESULT BELOW Name: KRISTAL MOREIRA : [address]: Emily Melgar MD Acct: [id number] Unit: [id number] AGE: 69 Location: [place] [address] Re09/24/19 Dis: 09/25/19 SEX: F Status: DIS IN SPEC: [id number] VINNIE: 09/24/[address] [facility] [address]: Rocael Drew MD REQ: [id number] RECD: 09/24/19 STATUS: COMP OT DR: Conchita De León MD _ SOURCE: URINE [facility]: ORDERED: Urine Culture Procedure Result Reported Site Urine Culture Final 09/26/19- 824 ML No Growth (<1,000 CFU/mL) * ML - Main Lab . END OF REPORT DEPARTMENT OF PATHOLOGY, [address] [place] [address] Delmar Cannon M.D. Director [facility] # [id number] 4 Standard intensity warfarin therapeutic range: 2.0-3.0 High intensity warfarin therapeutic range: 2.5-3.5 5 Booking Police Officer: [id number] SEE RESULT BELOW Name: KRISTAL MOREIRA : [address]: Lisa Jarvis MD Acct: [id number] Unit: [id number] AGE: 69 Location: [facility] Re08/26/19 SEX: F Status: REG REF SPEC: [id number] VINNIE: 08/26/19-[address]: Lisa Jarvis MD REQ: [id number] RECD: 08/26/19 STATUS: COMP _ SOURCE: URINE SPDESC: ORDERED: Urine Culture QUERIES: Urine Source: Clean Catch Procedure Result Reported Site Urine Culture Final 08/28/19- 08 ML Organism 1 KLEBSIELLA PNEUMONIAE [place] Count >100,000 (Many) CFU/ML 1. KLEBSIELLA PNEUMONIAE [facility].I.[facility]. RX --------- ------ Ampicillin >=32 R Cefazolin <=4 S Cefepime <=1 S Ceftriaxone <=1 S Ciprofloxacin <=0.25 S Gentamicin <=1 S Levofloxacin <=0.12 S Meropenem <=0.25 S Nitrofurantoin 64 I Tetracycline <=1 S Pipercillin/Tazobactam <=4 S Trimethoprim/Sulfamethoxazole <=20 S Amoxicillin/Clavulanic Acid <=2 S Aztreonam <=1 S Contact the Microbiology Department for any additional antibiotic reporting. * ML - Main Lab . END OF REPORT DEPARTMENT OF PATHOLOGY, [address] [place] [address] Delmar Cannon M.D. Director [facility] # [id number] 7 Because ethnic data is not always readily [...] 15-29 5 Kidney failure <15 (or dialysis) 8 Standard intensity warfarin therapeutic range: 2.0-3.0 High intensity warfarin therapeutic range: 2.5-3.5 9 SEE RESULT BELOW Name: KRISTAL MOREIRA : [address]: Conchita De León MD Acct: [id number] Unit: [id number] AGE: 68 Location: [facility] Re04/15/19 SEX: F Status: REG REF SPEC: [id number] VINNIE: 04/15/[address]: Conchita De León MD REQ: [id number] RECD: 04/15/19 STATUS: SOUT _ ORDERED: TP IMAGE ANALYS, HPV/Thin Prep COMMENTS: [id number] Negative for Intraepithelial lesion or Malignancy Date [...] by and Reported on: MOIZ Cosme (ASCP) 1224 This Pap test was evaluated with the assistance of the [employer] InformatiquePrep Test Imaging System. Due to cytologic findings at the coping machine operator microscope, comprehensive manual rescreening by a Bi Lead may be required. The Pap Smear is [...] years. END OF REPORT DEPARTMENT OF PATHOLOGY, [address] [place] [address] Delmar Cannon M.D. Director [facility] # [id number] Procedures Date Code Description Status 09/09/2019 88865 Insert Non-Tunneled Venous Catether Completed 09/09/2019 42409 Endo-Trachial Tube Completed 09/08/2019 28400 TKR Total Knee Replacement Completed 09/08/2019 02685 TKR Total Knee Replacement Completed 08/26/2019 48486 EKG, Interpretation Only Completed 08/23/2019 10647 [facility] Per Full Month 20 Yrs Completed 06/08/2019 89931 Treadmill Interp/Report Only Completed 06/08/2019 86591 Stress Test Supervsn W/Out I/R Completed 06/01/2019 32168 Echocardiogram, Limited Study Completed 06/01/2019 06019 Echocardiogram, Limited Study Completed 05/16/2019 19624 EKG Tracing & Interpretation Completed 05/03/2019 00842 Removal Of Tunneled Central Venous Cath W/O Completed Subcutaneous Port/TELEPHONE SUPERVISOR 04/23/2019 66760 [facility] Per Full Month 20 Yrs Completed 03/24/2019 85973736 Mammogram Completed 10/05/2018 176945026 Bone Mineral Density Test Completed 10/13/2017 18537424 Mammogram Completed 10/16/2016 454170584 Diabetic Retinal Eye Exam Completed 10/03/2016 51707614 Mammogram Completed 03/12/2016 63281299 Colonoscopy Completed 05/08/2015 08305852 Mammogram Completed 09/30/2013 21017690 Mammogram Completed Medical Devices Description No Information Available Encounters Type Date Location Provider Dx Diagnosis Office Visit 09/19/2019 [facility] Nephrology Kian Pope N18.6 End stage renal 10:27a MD Yanira disease Office Visit 09/13/2019 [facility] Roz Roblero, R56.9 Unspecified 9:37a Assoc,pc DO convulsions Hospitalists Z96.651 Presence of right artificial knee joint Office Visit 09/13/2019 10:45a [facility] Nephrology Agustina Alexander MD D63.1 Anemia in chronic kidney disease I12.0 Hyp chr kidney disease w stage 5 chr kidney disease or Esrd N18.6 End stage renal disease Office Visit 09/12/2019 3:35p [facility] Nephrology Agustina Alexander MD D63.1 Anemia in chronic kidney disease I12.0 Hyp chr kidney disease w stage 5 chr kidney disease or Esrd N18.6 End stage renal disease Office Visit 09/12/2019 9:37a [facility] Luther Stevens, E11.649 Type 2 diabetes [place]uita[place] mellitus with hypoglycemia without coma Office Visit 09/11/2019 9:30a [facility] Bar Jewell E11.649 Type 2 diabetes MD mellitus with hypoglycemia without coma G40.909 Epilepsy, unsp, not intractable, without status epilepticus Office Visit 09/11/2019 3:32p [facility] Nephrology Kian Pope D63.1 Anemia in MD Yanira chronic kidney disease I12.0 Hyp chr kidney disease w stage 5 chr kidney disease or Esrd N18.6 End stage renal disease Office Visit 09/10/2019 9:27a [facility] Amauri Sawyer96.01 Acute respiratory MD failure with hypoxia G93.40 Encephalopathy, unspecified G40.901 Epilepsy, unsp, not intractable, with status epilepticus Office Visit 09/09/2019 9:21a [facility] Amauri Sawyer96.01 Acute respiratory MD failure with hypoxia G40.901 Epilepsy, unsp, not intractable, with status epilepticus G93.40 Encephalopathy, unspecified Office Visit 09/09/2019 3:32p [facility] Nephrology Kian Pope D63.1 Anemia in MD Yanira chronic kidney disease I12.0 Hyp chr kidney disease w stage 5 chr kidney disease or Esrd N18.6 End stage renal disease Office Visit 09/08/2019 9:07a [facility] Marcie I12.0 Hyp chr Assoc,pc WILFRIDO Zamarripa kidney Hospitalists disease w stage 5 chr kidney disease or Esrd E11.22 Type 2 diabetes mellitus w diabetic chronic kidney disease N18.6 End stage renal disease Office Visit 08/25/2019 1:00p [facility] Internal Sri Z01.818 Encounter for other Medicine - MD Brandon preprocedural Ccmob examination E11.22 Type 2 diabetes mellitus w diabetic chronic kidney disease N18.6 End stage renal disease M17.11 Unilateral primary osteoarthritis, right knee Office Visit 06/27/2019 [facility] I31.3 Pericardial effusion 3:00p Cardiology MARK Mcintosh (noninflammatory) I34.0 Nonrheumatic mitral (valve) insufficiency I50.30 Unspecified diastolic (congestive) heart failure Z01.810 Encounter for preprocedural cardiovascular examination Office Visit 06/07/2019 2:00p [facility] Internal Conchita De León E11.22 [facility] Office Visit 05/16/2019 3:00p [facility] Marcy Mcintosh, I31.3 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 knee M25.461 Effusion, right knee M17.11 Unilateral primary osteoarthritis, right knee M21.061 Valgus deformity, not elsewhere classified, right knee Office Visit 04/21/2019 11:00a [facility] Manjeet Bedolla N18.6 End stage renal Of [facility] MD Sameer, disease FACS Assessments Date Code Description Provider 09/19/2019 N18.6 End stage renal disease Kian Doyle MD 09/14/2019 M17.11 Unilateral primary osteoarthritis, Roz Roblero, DO right knee 09/14/2019 D63.1 Anemia in chronic kidney disease Roz Roblero, DO 09/14/2019 I12.0 Hypertensive chronic kidney disease Roz Roblero, DO with stage 5 chronic kidney disease or end stage renal disease 09/14/2019 N18.6 End stage renal disease Roz Osbaldo, DO 09/14/2019 E11.649 Type 2 diabetes mellitus with Roz Osbaldo, DO hypoglycemia without coma 09/14/2019 E11.22 Type 2 diabetes mellitus with Roz Sengalen, DO diabetic chronic kidney disease 09/14/2019 R56.9 Unspecified convulsions Roz Roblero, DO 09/14/2019 Z86.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, 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), and cerebral infarction without residual deficits 09/14/2019 Z99.2 Dependence on renal dialysis Roz Roblero, 09/13/2019 D63.1 Anemia in chronic kidney disease Agustina Alexander MD 09/13/2019 R56.9 Unspecified convulsions Roz Roblero, DO 09/13/2019 I12.0 Hypertensive chronic kidney disease Agustina Alexander MD with stage 5 chronic kidney disease or end stage renal disease 09/13/2019 Z96.651 Presence of right artificial knee Roz Roblero DO joint 09/13/2019 N18.6 End stage renal disease Agustina Alexander MD 09/12/2019 D63.1 Anemia in chronic kidney disease Agustina Alexander MD 09/12/2019 E11.649 Type 2 diabetes mellitus with Luther Stevens M.D. hypoglycemia without coma 09/12/2019 I12.0 Hypertensive chronic kidney disease Agustina Alexander MD with stage 5 chronic kidney disease or end stage renal disease 09/12/2019 N18.6 End stage renal disease Agustina Alexander MD 09/11/2019 D63.1 Anemia in chronic kidney disease Kian Doyle MD 09/11/2019 E11.649 Type 2 diabetes mellitus with Bar Jewell MD hypoglycemia without coma 09/11/2019 I12.0 Hypertensive chronic kidney disease Kian Doyle MD with stage 5 chronic kidney disease or end stage renal disease 09/11/2019 G40.909 Epilepsy, unspecified, not Bar Jewell MD intractable, without status epilepticus 09/11/2019 N18.6 End stage renal disease Kian Doyle MD 09/10/2019 J96.01 Acute respiratory failure with Bar Jewell MD hypoxia 09/10/2019 G93.40 Encephalopathy, unspecified Bar Jewell MD 09/10/2019 G40.901 Epilepsy, unspecified, not Bar Jewell MD intractable, with status epilepticus 09/09/2019 J96.01 Acute respiratory failure with Bar Jewell MD hypoxia 09/09/2019 G40.901 Epilepsy, unspecified, not Bar Jewell MD intractable, with status epilepticus 09/09/2019 D63.1 Anemia in chronic kidney disease Kian Doyle MD 09/09/2019 G93.40 Encephalopathy, unspecified Bar Jewell MD 09/09/2019 I12.0 Hypertensive chronic kidney disease Kian Doyle MD with stage 5 chronic kidney disease or end stage renal disease 09/09/2019 N18.6 End stage renal disease Kian Doyle MD 09/08/2019 I12.0 Hypertensive chronic kidney disease WILFRIDO Foreman with stage 5 chronic kidney disease or end stage renal disease 09/08/2019 E11.22 Type 2 diabetes mellitus with WILFRIDO Foreman diabetic chronic kidney disease 09/08/2019 M17.11 Unilateral primary osteoarthritis, WILFRIDO Llamas right knee 09/08/2019 N18.6 End stage renal disease WILFRIDO Foreman 09/08/2019 M17.11 Unilateral primary osteoarthritis, Lisa Jarvis M.D. right knee 08/26/2019 R94.31 Abnormal electrocardiogram [ECG] Atul Guillen M.D., [facility], [EKG] [facility] 08/26/2019 M25.561 Pain in right knee Lisa Jarvis M.D. 08/26/2019 M17.11 Unilateral primary osteoarthritis, Lisa Jarvis M.D. right knee 08/26/2019 M25.461 Effusion, right knee Lisa Jarvis M.D. 08/25/2019 Z01.818 Encounter for other preprocedural Sri Taylor MD examination 08/25/2019 E11.22 Type 2 diabetes mellitus with Sri Taylor MD diabetic chronic kidney disease 08/25/2019 N18.6 End stage renal disease Sri Taylor MD 08/25/2019 M17.11 Unilateral primary osteoarthritis, Sri Taylor MD right knee 08/23/2019 N18.6 End stage renal disease Kian Doyle MD 06/27/2019 I31.3 Pericardial effusion Marcy Mcintosh NP (noninflammatory) 06/27/2019 I34.0 Nonrheumatic mitral (valve) Marcy Mcintosh NP insufficiency 06/27/2019 I50.30 Unspecified diastolic (congestive) Marcy Mcintosh NP heart failure 06/27/2019 Z01.810 Encounter for preprocedural Marcy Mcintosh NP cardiovascular examination 06/08/2019 I31.3 Pericardial effusion Sreedhar Mooney M.D. (noninflammatory) 06/07/2019 E11.22 Type 2 diabetes mellitus with Conchita De León MD diabetic chronic kidney diseas 06/01/2019 I31.3 Pericardial effusion Sreedhar Mooney M.D. (noninflammatory) 06/01/2019 I31.3 Pericardial effusion [facility] (noninflammatory) 06/01/2019 R00.2 Palpitations [facility] 06/01/2019 Z01.810 Encounter for preprocedural [facility] cardiovascular examination 06/01/2019 I34.0 Nonrheumatic mitral (valve) [facility] insufficiency 05/16/2019 R00.2 Palpitations Sreedhar Mooney M.D. 05/16/2019 I31.3 Pericardial effusion Marcy Mcintosh NP (noninflammatory) 05/16/2019 R00.2 Palpitations Marcy Mcintosh NP 05/16/2019 Z01.810 Encounter for preprocedural Marcy Mcintosh NP cardiovascular examination 05/16/2019 I34.0 Nonrheumatic mitral (valve) Marcy Mcintosh NP insufficiency 05/16/2019 I10 Essential (primary) hypertension Marcy Mcintosh NP 05/10/2019 N18.6 End stage renal disease Liiba Raman NP 05/10/2019 Z48.02 Encounter for removal of sutures Libia Raman NP 05/06/2019 M25.561 Pain in right knee Lisa [...] osteoarthritis, Conchita De León MD right knee Plan of Treatment Future Appointment(s):10/31/2019 2:40 pm - Sreedhar Mooney M.D. at [facility]08/26/2019 - Lisa Jarvis M.D.M25.561 Pain in right kneeFollow up:Follow up: 2 weeks after gopcudbW18.11 Unilateral primary osteoarthritis, right kneeM25.461 Effusion, right knee Functional Status Description No Information Available Mental Status Description No Information Available Referrals Refer to Dr Reason for Referral Status Appt Ha Billy MD pt with type 2 DM, previously well controlled, Sent high glucose levels since starting peritoneal dialysis [address] [facility] [address] [place] [address] [phone] Lisa Jarvis MD painful OA. interventions delayed bc of CKD Sent [address] [facility] [place] [address] [place] [address] [phone]
--- OUTSIDE RECORDS SUMMARY | 2019-10-06 17:26 | XMS REPORT ---
:1950 Author Organization [facility] Care Team Providers Name Role Phone Unavailable [...] Unknown Reaction Kaylah Unknown 4-11 (Rasta) Alba [id number] enalapril Unknown Active Unknown Reaction Kaylah Unknown 4-11 (Rasta) Alba [id number] hydralazine Unknown Active Unknown Reaction Kaylah Unknown 4-11 (Rasta) Alba [id number] verapamil Unknown Active Unknown Reaction Kaylah Unknown 4-11 (Rasta) Alba [id number] Medications Ordered Filled Start Stop Current Ordering Indication Dosage Frequency Signature Comments Components Medication Medication Date Date Medication? Clinician (SIG) Name Name No Known No Known No None None None Medications Medications For This For This Patient Patient Procedures This patient has no known procedures. Results This patient has no known results.
[2019-10-06 17:46] LABS: ABS Basophils 0.1 10^3/ul (0-0.2); ABS Eosinophils 0.1 10^3/ul (0-0.6); ABS Lymphocytes 1.3 10^3/ul (1.0-4.8); ABS Neutrophils 6.6 10^3/ul (1.5-7.7); Eosinophil % 0.7 %; Lymphocyte % 14.6 %; Nucleated Red Blood Cells % 0.1
--- NOTE | 2019-10-06 18:15 | ED ---
Medical Screening - HPI Summary HPI Summary: 69 year old F [facility] via [facility] car complains of low hemoglobin levels. Hx chronic renal failure. Patient receives peritoneal dialysis every night. Patient has received blood transfusions in the past. Had blood work done on Thursday10/04/2019. Was called today 10/06/2019 which showed low hemoglobin levels. Was told to go to the ED. Patient states she had an appointment scheduled with primary care provider today but didn't go because she was too fatigued. Patient denies fever, chills, erythema of eyes, sore throat, chest pain, shortness of breath, cough, abdominal pain, nausea/vomiting , melena, dysuria, hematuria, myalgia, edema, rash, dizziness. Medications reviewed. Recently started on Coumadin. Allergies reviewed. - History of Current Complaint Chief Complaint: EDGeneral Stated Complaint: NEEDS BLOOD TRANSFUSION PER PT Onset/Duration: Still Present Associated Signs and Symptoms: Negative - fever, chills, erythema of eyes, sore throat, chest pain, shortness of breath, cough, abdominal pain, nausea/vomiting , melena, dysuria, hematuria, myalgia, edema, rash, dizziness, Other - fatigue PMH/Surg Hx/FS Hx/Imm Hx Endocrine/Hematology History: Reports: Hx Diabetes, Hx Anemia Denies: Hx Anticoagulant Therapy, Hx Blood Disorders, Hx Thyroid Disease, Hx Unexplained Bleeding Cardiovascular History: Reports: Hx Cardiomegaly, Hx Hypercholesterolemia, Hx Hypertension, Hx Valvular Heart Disease, Other Cardiovascular Problems/ Disorders - mitral valve insufficiency Denies: Hx Angina, Hx Atrial Fibrillation, Hx Coronary Artery Disease, Hx Myocardial Infarction, Hx Pacemaker/ICD, Hx Syncope Respiratory History: Reports: Hx Pulmonary Edema Denies: Hx Asthma, Hx Chronic Obstructive Pulmonary Disease (COPD), Other Respiratory Problems/Disorders Comment Only: Hx Sleep Apnea - MD. 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 History: Reports: Hx Chronic Renal Failure, Hx Dialysis - ESRD on peritoneal dialysis, Other Problems/Disorders - HX OF UTI Musculoskeletal History: Reports: Hx Orthopedic Injury - Left knee, Other Musculoskeletal History - VALGUS DEFORMITY, DEGENERATIVE JOINT DISEASE Denies: Hx Arthritis, Hx Osteoporosis Sensory History: Reports: Hx Cataracts, Hx Contacts or Glasses Denies: Hx Hearing Aid, Hx Hearing Problem Opthamlomology History: Reports: Hx Cataracts, Hx Contacts or Glasses Neurological History: Reports: Hx Headaches, Hx Nerve Disease - DIABETIC NEUROPATHY-BILATERAL FEET Denies: Other Neuro Impairments/Disorders Psychiatric History: Reports: Hx Anxiety Denies: Hx Panic Disorder, Other Psychiatric Issues/Disorders - Cancer History Cancer Type, Location and Year: Breast CA Hx Chemotherapy: No Hx Radiation Therapy: Yes - RIGHT BREAST - Surgical History Surgery Procedure, Year, and Place: Bilateral TKR, Lumpectomy, AVM repair ( intestine), Bilateral Cataract, Carpal Tunnel, Tubal, Dialysis catheter. Hx Anesthesia Reactions: No Infectious Disease History: No Infectious Disease History: Reports: Hx Hepatitis - C Denies: Hx of Known/Suspected MRSA, History Other Infectious Disease, Traveled Outside the [place] in Last 30 Days - Family History Known Family History: Positive: Cardiac Disease, Diabetes - Social History Alcohol Use: None Hx Substance Use: No Substance Use Type: Reports: None Hx Tobacco Use: Yes Smoking Status (MU): Former Smoker Type: Cigarettes Amount Used/How Often: 1/2 ppd Length of Time of Smoking/Using Tobacco: 25 years Have You Smoked in the Last Year: No Review of Systems Positive: Fatigue. Negative: Fever, Chills Negative: Erythema Negative: Sore Throat Negative: Chest Pain Negative: Shortness Of Breath, Cough Gastrointestinal: Negative - melena Negative: Abdominal Pain, Vomiting, Nausea Negative: dysuria, hematuria Negative: Myalgia, Edema Negative: Rash Neurological/Mental Status: Negative - Dizziness All Other Systems Reviewed And Are Negative: Yes Physical Exam - Summary Physical Exam Summary: Constitutional: Well-developed, Well-nourished, Alert. (-) Distressed Skin: Warm, Dry HENT: Normocephalic; Atraumatic Eyes: Conjunctiva normal Neck: Musculoskeletal ROM normal neck. (-) JVD, (-) Stridor, (-) Tracheal deviation Cardio: Rhythm regular, rate normal, Heart sounds normal; Intact distal pulses; The pedal pulses are 2+ and symmetric. Radial pulses are 2+ and symmetric. Systolic murmur Pulmonary/Chest wall: Effort normal. (-) Respiratory distress, (-) Wheezes, (-) Rales Abd: Soft, (-) tenderness, (-) Distension, (-) Guarding, (-) Rebound Rectal exam chaperoned by female hospital aide: Small amount of blood on finger. Maroon colored stool. Musculoskeletal: (-) Edema Lymph: (-) Cervical adenopathy Neuro: Alert, Oriented x3 Psych: Mood and affect Normal Triage Information Reviewed: Yes Vital Signs On Initial Exam: Initial Vitals Temp Pulse Resp BP Pulse Ox 98.3 F 74 20 121/55 100 10/06/19 16:38 10/06/19 16:38 10/06/19 16:38 10/06/19 16:38 10/06/19 16:38 Vital Signs Reviewed: Yes Procedures - Sedation Patient Received Moderate/Deep Sedation with Procedure: No Diagnostics - Vital Signs Vital Signs Temp Pulse Resp BP Pulse Ox 10/06/19 16:38 98.3 F 74 20 121/55 100 - Laboratory Lab Results: Lab Results 10/06/19 10/06/19 10/06/19 Range/Units 16:47 16:47 16:47 WBC 9.1 (3.5-10.8) 10^3/uL RBC 1.88 L (3.70-4.87) 10^6 /uL Hgb 5.5 L* (12.0-16.0) g/dL Hct 16 L (35-47) % MCV 85 (80-97) fL MCH 29 (27-31) pg MCHC 34 (31-36) g/dL RDW 17 H (10-15) % Plt Count 684 H (150-450) 10^3/uL MPV 7.4 (7.4-10.4) fL Neut % (Auto) 73.1 % Lymph % (Auto) 14.6 % Geary % (Auto) 10.6 % Eos % (Auto) 0.7 % Baso % (Auto) 1.0 % Absolute Neuts (auto) 6.6 (1.5-7.7) 10^3/ul Absolute Lymphs (auto) 1.3 (1.0-4.8) 10^3/ul Absolute Monos (auto) 1.0 H (0-0.8) 10^3/ul Absolute Eos (auto) 0.1 (0-0.6) 10^3/ul Absolute Basos (auto) 0.1 (0-0.2) 10^3/ul Absolute Nucleated RBC 0.0 10^3/ul Nucleated RBC % 0.1 INR (Anticoag Therapy) 1.98 H (0.82-1.09) APTT 42.0 H (26.0-38.0) seconds Sodium 132 L (135-145) mmol/L Potassium 4.0 (3.5-5.0) mmol/L Chloride 95 L (101-111) mmol/L Carbon Dioxide 24 (22-32) mmol/L Anion Gap 13 H (2-11) mmol/L BUN 46 H (6-24) mg/dL Creatinine 7.72 H (0.51-0.95) mg/dL Est GFR ( Amer) 6.3 (>60) Est GFR (Non-Af Amer) 5.2 (>60) BUN/Creatinine Ratio 6.0 L (8-20) Glucose 341 H (70-100) mg/dL Calcium 8.4 L (8.6-10.3) mg/dL Total Bilirubin 0.20 (0.2-1.0) mg/dL AST 12 L (13-39) U/L ALT 7 (7-52) U/L Alkaline Phosphatase 99 (34-104) U/L Total Protein 6.3 L (6.4-8.9) g/dL Albumin 2.9 L (3.2-5.2) g/dL Globulin 3.4 (2-4) g/dL Albumin/Globulin Ratio 0.9 L (1-3) Blood Type Antibody Screen Crossmatch 10/06/19 Range/Units 16:47 WBC (3.5-10.8) 10^3/uL RBC (3.70-4.87) 10^6 /uL Hgb (12.0-16.0) g/dL Hct (35-47) % MCV (80-97) fL MCH (27-31) pg MCHC (31-36) g/dL RDW (10-15) % Plt Count (150-450) 10^3/uL MPV (7.4-10.4) fL Neut % (Auto) % Lymph % (Auto) % Geary % (Auto) % Eos % (Auto) % Baso % (Auto) % Absolute Neuts (auto) (1.5-7.7) 10^3/ul Absolute Lymphs (auto) (1.0-4.8) 10^3/ul Absolute Monos (auto) (0-0.8) 10^3/ul Absolute Eos (auto) (0-0.6) 10^3/ul Absolute Basos (auto) (0-0.2) 10^3/ul Absolute Nucleated RBC 10^3/ul Nucleated RBC % INR (Anticoag Therapy) (0.82-1.09) APTT (26.0-38.0) seconds Sodium (135-145) mmol/L Potassium (3.5-5.0) mmol/L Chloride (101-111) mmol/L Carbon Dioxide (22-32) mmol/L Anion Gap (2-11) mmol/L BUN (6-24) mg/dL Creatinine (0.51-0.95) mg/dL Est GFR ( Amer) (>60) Est GFR (Non-Af Amer) (>60) BUN/Creatinine Ratio (8-20) Glucose (70-100) mg/dL Calcium (8.6-10.3) mg/dL Total Bilirubin (0.2-1.0) mg/dL AST (13-39) U/L ALT (7-52) U/L Alkaline Phosphatase (34-104) U/L Total Protein (6.4-8.9) g/dL Albumin (3.2-5.2) g/dL Globulin (2-4) g/dL Albumin/Globulin Ratio (1-3) Blood Type B Positive Antibody Screen Negative Crossmatch See Detail Result Diagrams: 10/06/19 16:47 10/06/19 16:47 Lab Statement: Any lab studies that have been ordered have been reviewed, and results considered in the medical decision making process. - EKG 1834 Cardiac Rate: NL - 73 PBM EKG Rhythm: Sinus Rhythm Summary of EKG Findings: No STEMI. ED physician has reviewed and interpreted this EKG. Course/Dx - Course Course Of Treatment: 69 y/o F with hx renal failure, hx peritoneal dialysis, hx blood transfusions presents with low hemoglobin levels. Was called today 2019 about blood work done on Thursday10/04/2019 which showed low hemoglobin levels. Recently started on Coumadin for DVT prophylaxis. Systolic murmur noted on physical exam. Small amount of blood on finger and maroon colored stool noted on digital rectal exam chaperoned by female hospital aide. . Stool sample collected and sent to the lab. Bloodwork results with no significant abnormalities except for RBC 1.88, Hgb 5.5, Hct 16, RDW 17, platelet 684, absolute monos 1.0, INR 1.98, APTT 42.0, sodium 132, chloride 95, anion gap 13, BUN 46, creatinine 7.72, BUN/creatinine 6.0, glucose 341, calcium 8.4, AST 12, total protein 6.3, albumin 2.9, albumin/globulin 0.9. An EKG shows sinus rhythm 73 BPM. No STEMI. In the ED course, the patient was given pantoprazole, phytonadione, prothrombin. Blood transfusion initiated. Dr. Dwain DICKINSON is aware and will consult. Dr. Evans hospitalist agrees to admit patient. CRITICAL CARE TIME 60 MINUTES. - Diagnoses Provider Diagnoses: Lower GI bleed, Symptomatic anemia, End stage renal disease - Physician Notifications Discussed Care Of Patient With: Dre Prakash Time Discussed With Above Provider: 18:44 Instructed by Provider To: Other - Dr. Dwain DICKINSON is aware and will consult. 1847 DR. Nathan freeman agrees to admit patient. Discharge ED - Sign-Out/Discharge Documenting (check all that apply): Patient Departure - Discharge Plan Condition: Stable Disposition: ADMITTED TO [facility] Referrals: Conchita De León MD [Primary Care Provider] - - Attestation Statements Document Initiated by Scribe: Yes Documenting Scribe: Alexandra Pham Provider For Whom Noeibe is Documenting (Include Credential): Shayan Jack MD Scribe Attestation: Alexandra Fernandez, scribed for Shayan Jack MD on 10/06/19 at 1921. Status of Scribe Document: Ready
[2019-10-06] MEDS ORDERED: Phytonadione IV (Adult)* 10 MG/ML 1 ML AMP IV ONE (18:34)
[2019-10-06] MEDS ORDERED: Pantoprazole* 80 mg IN NS 80 MG/250 ML BAG IV ONE (18:45)
[2019-10-06] MEDS ORDERED: Pantoprazole IV* 40 MG IV ONE (18:45)
[2019-10-06] MEDS ORDERED: PHYTONADIONE 10 MG IVPB - ED ONCE IV ONE ×2 (19:15)
[2019-10-06] MEDS ORDERED: Methocarbamol TAB* 500 MG PO PRN (20:16)
[2019-10-06] MEDS ORDERED: oxyCODONE/Acetamin 5/325 MG* TAB PO PRN (20:16)
[2019-10-06] MEDS ORDERED: Dextrose 50% Syringe 50 ML* 25 GM/50 ML SYRINGE IV PUSH PRN (20:44)
[2019-10-06] MEDS: cloNIDine TAB* 0.1 MG PO SCH (22:09)
[2019-10-06] MEDS: Terazosin CAP* 5 MG PO SCH (22:10)
[2019-10-06] MEDS: Mupirocin 2% OINT* TUBE TOPICAL SCH (22:10)
[2019-10-06] MEDS: Labetalol TAB* 300 MG PO SCH (22:10)
--- NOTE | 2019-10-06 22:16 | HP ---
CC: Dr. Conchita De León; Dr. Dre Prakash; Dr. Kian Doyle * ADMISSION HISTORY AND PHYSICAL: DATE OF ADMISSION: 10/06/19 PRIMARY CARE PHYSICIAN: Dr. Conchita De León. CHIEF COMPLAINT: Low hemoglobin. HISTORY OF PRESENT ILLNESS: This is a 69-year-old female with a past medical history of diabetes; end-stage renal disease, on peritoneal dialysis; hyperlipidemia; hypertension; recent right-knee replacement on August 2019; and recently diagnosed tonic-colonic seizures, on antiseizure medications; was discharged from the hospital for weakness on 09/25/19 without any findings, was in her usual state of health, receiving her peritoneal dialysis, had a routine lab work done on Thursday and the results came back today and she was told that her hemoglobin was low at 6 and she should have it checked out. She was to see her PCP today, but she felt really tired and very weak throughout the day, so could not make the appointment. Finally, she got her friend to drive her to the emergency room as instructed by her nurse for a low hemoglobin. While in the ER, her hemoglobin was noted to be 5.5 and she was otherwise symptom free. She denied any chest pain, shortness of breath, palpitations. Other than generalized weakness, no other symptoms. She denied any nausea, vomiting, diarrhea, or abdominal pain. She even denied any ahmet bloody stool, although ER physician did note some maroon- color stool on rectal exam which was Hemoccult positive. PAST MEDICAL HISTORY: As mentioned: 1. Diabetes; however, she is currently not on any medications. 2. Hypertension; on multiple BP medications. 3. History of anemia secondary to possible GI bleed. There is a small capsule endoscopy done in December 2017 which was positive for intestinal arteriovenous malformations, which were oozing blood. 4. History of UTI. 5. Vaginal candidiasis. 6. Recently diagnosed seizure disorder. 7. End-stage renal disease, on peritoneal dialysis. Her last peritoneal dialysis was yesterday. 8. Right breast cancer and possible history of hepatitis C. PAST SURGICAL HISTORY: She has had a peritoneal dialysis catheter placement, right knee replacement done recently, and multiple endoscopies in the past. HOME MEDICATIONS: Include: 1. Percocet 1 tablet every 4 hours p.r.n. 2. Keppra 250 mg oral daily. 3. Lamictal 25 mg every other day. 4. Catapres 0.3 mg p.o. t.i.d. 5. Amlodipine 10 mg oral daily. 6. Coumadin 2 mg oral daily. 7. Terazosin 10 mg p.o. daily at bedtime. 8. Bactrim oral daily for 3 days, which she finished the course. 9. Mupirocin topical b.i.d. 10. Miconazole vaginal every 24 hours. 11. Robaxin 750 mg p.o. t.i.d. p.r.n. 12. Labetalol 300 mg p.o. b.i.d. 13. Imdur 30 mg every evening. 14. Cardizem 240 mg p.o. daily. 15. Calcitriol 0.25 mcg oral daily. ALLERGIES: The patient is allergic to ENALAPRIL which causes swelling of face, lips, and throat; DILTIAZEM which causes her heart to pound; HYDRALAZINE and VERAPAMIL, both cause palpitations. FAMILY HISTORY: Mother at age 38 related to diabetes, father at age 54 with heart attack. She has 2 brothers, one of whom has had a heart attack. SOCIAL HISTORY: She is a former smoker, quit in 2006. She is a former alcoholic, sober since 2011. Ankit Monique, her brother is her surrogate decision maker. REVIEW OF SYSTEMS: A 14-point review of systems did not reveal any information other than what is mentioned in the HPI. PHYSICAL EXAMINATION GENERAL: The patient is awake, alert, and oriented x3; does not appear to be in any acute distress VITAL SIGNS: In the ER, BP was noted to be 162/72, temperature 98.3, heart rate 74, respirations at 20, saturating 100% on room air. HEAD AND NECK EXAMINATION: Atraumatic and normocephalic. Bilateral pupils reactive. Oral mucosa is moist. NECK: Supple. No jugular venous distention. LUNGS: Clear to auscultation bilaterally. No wheezing, rhonchi, or rales. HEART: S1 and S2. Regular rate and rhythm with systolic murmur heard. ABDOMEN: Soft, nontender, and nondistended with peritoneal dialysis catheter present in the left side. EXTREMITIES: The patient's right knee is swollen but otherwise surgical site was clean, dry, and intact, well-healing. The overall swelling according to the patient was not changed since the surgical day. There was no sudden increase in the size over the last few days. No other cyanosis, clubbing, or edema. DIAGNOSTIC STUDIES/LAB DATA: CBC shows a significant drop in hemoglobin from baseline last known was 09/24/19 which was 9.0 and today it was 5.5, hematocrit was 16, platelet count was elevated at 684. Coagulation profile shows INR slightly subtherapeutic at 1.98. Comprehensive metabolic panel shows elevated BUN at 46 and creatinine at 7.12 which is unchanged from her baseline. Random glucose elevated at 341. EKG showed sinus rhythm at 73 beats per minute, when compared to her old EKG from 09/24/19, there is essentially no other change. IMPRESSION: This is a 69-year-old female with diabetes, not on any medications ; recent right knee replacement, on Coumadin for DVT prevention; history of intestinal arteriovenous malformation causing anemia in the past; and end-stage renal disease, on peritoneal dialysis, here due to incidental finding of anemia on routine blood work with mild symptoms of anemia. ASSESSMENT: 1. Symptomatic anemia likely secondary to GI bleed as Hemoccult was positive. For now the patient is receiving 2 units of packed red blood cells, we will repeat blood work post transfusion. She is also receiving vitamin K. We will hold her Coumadin for now and monitor her INR with a.m. labs. Dr. Prakash was already notified by the ER staff who will evaluate the patient. We will keep the patient n.p.o. for possible endoscopy. Colonoscopy would be scheduled based on Dr. Prakash's evaluation. Our goal for hemoglobin at this point is 7. 2. End-stage renal disease, on peritoneal dialysis. I spoke with Dr. Doyle, Nephrology, who will discuss with the PD nurse and will evaluate the patient for morning peritoneal dialysis as it is okay to skip just one day of peritoneal dialysis in her case as she does make urine. 3. History of seizure disorder, restart home seizure medications. 4. History of diabetes, currently not on any medications. We will start the patient on fingersticks q.6 hours while she is n.p.o. and advance to a.c. and h.s. Once GI clears, the patient to start on any p.o. diet. In the meantime, we will start the patient on a mild insulin sliding scale. 5. History of hypertension. Restart BP medications. We will hold amlodipine as the patient is already on 2 different calcium channel blockers and she does state that she had some intermittent constipations in the past. 6. Recent knee replacement. We will hold DVT prophylactic Coumadin as mentioned. [id number]/[facility] #: [id number] MTDD
[2019-10-07] MEDS: Insulin LISPRO* 1 UNITS UNIT SUBCUT SCH ×6 (00:02→23:28)
[2019-10-07] MEDS ORDERED: Pantoprazole IV* 40 MG IV SCH (05:00)
[2019-10-07 07:04] LABS: ABS Basophils 0.1 10^3/ul (0-0.2); ABS Eosinophils 0.1 10^3/ul (0-0.6); ABS Lymphocytes 1.5 10^3/ul (1.0-4.8); ABS Monocytes 1.1 10^3/ul (0-0.8); Hematocrit 24 % (35-47); Hemoglobin 8.4 g/dL (12.0-16.0); Lymphocyte % 17.1 %; Mean Corpuscular HGB Conc 36 g/dL (31-36); Mean Corpuscular Hemoglobin 30 pg (27-31); Mean Corpuscular Volume 83 fL (80-97); Mean Platelet Volume 7.3 fL (7.4-10.4); Nucleated Red Blood Cells % 0.1; Platelet Count 600 10^3/uL (150-450); Red Blood Count 2.82 10^6 /uL (3.70-4.87); Red Cell Distribution Width 16 % (10-15); White Blood Count 8.8 10^3/uL (3.5-10.8)
[2019-10-07 07:09] LABS: INR 1.46 (0.82-1.09)
[2019-10-07 07:22] LABS: Calcium 8.1 mg/dL (8.6-10.3); Potassium 3.5 mmol/L (3.5-5.0)
[2019-10-07 07:28] LABS: BUN/Creatinine Ratio 6.3 (8-20); EGFR African American 6.3 (>60); EGFR Non-African American 5.2 (>60)
[2019-10-07] MEDS: levETIRAcetam TAB* 500 MG PO SCH (09:07)
[2019-10-07] MEDS: Calcitriol CAP* 0.25 MCG PO SCH (09:08)
[2019-10-07] MEDS: cloNIDine TAB* 0.1 MG PO SCH ×3 (09:08→19:54)
[2019-10-07] MEDS: Labetalol TAB* 300 MG PO SCH ×2 (09:10→19:55)
[2019-10-07] MEDS: Mupirocin 2% OINT* TUBE TOPICAL SCH ×2 (09:11→20:09)
[2019-10-07] MEDS: Pantoprazole IV* 40 MG IV SCH ×2 (09:11→20:02)
[2019-10-07] MEDS: Diltiazem CD CAP* 240 MG PO SCH (09:11)
[2019-10-07] MEDS ORDERED: Buffered Lidocaine 1% SYRIN* 1 ML/SYRINGE INTRADERM ONE (11:56)
[2019-10-07] MEDS ORDERED: Dexamethasone IV* 4 MG/ML 1 ML (4 MG) IV SLOW PU ONE (11:56)
[2019-10-07] MEDS ORDERED: Ondansetron INJ* 2 MG/ML VIAL IV ONE (11:56)
[2019-10-07] MEDS ORDERED: fentaNYL* 50 MCG/ML 2 ML VIAL (100 MCG VIAL) IV PRN (11:58)
[2019-10-07] MEDS ORDERED: Naloxone* 0.4 MG/ML 1 ML VIAL IV PRN (11:58)
[2019-10-07] MEDS ORDERED: Lactated Ringers 1000 ML Bag* 1,000 ML IV SCH (12:00)
[2019-10-07] MEDS ORDERED: NS 0.45% 1000 ML BAG* 1,000 ML IV SCH (12:00)
[2019-10-07] MEDS ORDERED: Midazolam* 1 MG/ML 5 ML VIAL (5 MG) ONE (12:41)
[2019-10-07] MEDS ORDERED: fentaNYL* 50 MCG/ML 2 ML VIAL (100 MCG VIAL) ONE (12:41)
[2019-10-07] MEDS ORDERED: KETAMINE HCL* 50 MG/ML 10 ML VIAL ONE (12:41)
--- NOTE | 2019-10-07 13:26 | PN ---
Progress Note - Progress Note Date of Service: 10/07/19 SOAP: Subjective: [pt was seen sitting up in bed. She states that she is doing much better than yesterday after the blood transfusion. She states that she has been doing well with her right knee and that pain is not an issue. She does complain of heel pain on her foot that she states she has been told is breakdown of the skin. She denies any chest pain, SOB, fevers, chills or night sweats. ] Objective: [General: pt is alert and oriented x3. NAD MSK, RLE: Incision is present and is c/d/i. She is able to extend to 0 and flex to 90 degrees. Calf is soft and non tender. NVI distally. She does have an area of redness present at the heel. She has been elevating this off the bed using a pillow to good effect. There is no opening present. Vital Signs Temp 98 F 10/07/19 11:37 Pulse 70 10/07/19 11:37 Resp 16 10/07/19 11:37 BP 147/56 10/07/19 11:37 Pulse Ox 99 10/07/19 11:37 Intake & Output 10/06/19 10/07/19 10/07/19 18:59 06:59 18:59 Intake Total 1292 Balance 1292 Weight 142 lb 146 lb Intake: IV Fluids 464 blood product 414 IVPB 828 Protonix 500 blood product 328 Oral 0 ] Assessment: [S/P RTKA Acute anemia Plan: [Hospital team to continue with treatment of anemia PT has been ordered to work on ROM and strength Her heels should continue to be monitored, she should keep them elevated off of the bed using a pillow. ]
--- NOTE | 2019-10-07 13:43 | PN ---
Subjective Date of Service: 10/07/19 Interval History: HOSPITALIST PROGRESS NOTE Patient seen and examined at bedside. Care reviewed and d/w Ritu Dickinson RN. She feels a little better today, with more energy. "I was like a rag doll before ". Denies chest pain, palpitations, dyspnea, N/V. Family History: Unchanged from Admission Social History: Unchanged from Admission Past Medical History: Unchanged from Admission Objective Active Medications: Calcitriol (Rocaltrol Cap*) 0.25 mcg PO DAILY [facility] Last Admin: 10/07/19 09:08 Dose: 0.25 mcg Clonidine HCl (Catapres Tab*) 0.3 mg PO TID [facility] Last Admin: 10/07/19 09:08 Dose: 0.3 mg Dextrose (D50w Syringe 50 Ml*) 12.5 gm IV PUSH .FOR FS < 60 - SS PRN PRN Reason: FS < 60 Diltiazem HCl (Cardizem Cd Cap*) 240 mg PO DAILY [facility] Last Admin: 10/07/19 09:11 Dose: 240 mg Fentanyl Citrate (Fentanyl*) 25 mcg IV Q5M PRN PRN Reason: PAIN - MODERATE Lactated Ringer's (Lactated Ringers 1000 Ml Bag*) 1,000 mls @ 125 mls/hr IV PER RATE [facility] Sodium Chloride (Ns 0.45% 1000 Ml Bag*) 1,000 mls @ 0 mls/hr IV KVO [facility] Insulin Human Lispro (Humalog*) 0 units SUBCUT Q6HR [facility]; Protocol Last Admin: 10/07/19 12:20 Dose: Not Given Isosorbide Mononitrate (Imdur Er Tab*) 30 mg PO 1800 [facility] Labetalol HCl (Trandate Tab*) 300 mg PO BID [facility] Last Admin: 10/07/19 09:10 Dose: 300 mg Lamotrigine (Lamictal Tab(*)) 25 mg PO EVERY OTHER DAY [facility] Levetiracetam (Keppra Tab*) 250 mg PO DAILY [facility] Last Admin: 10/07/19 09:07 Dose: 250 mg Methocarbamol (Robaxin Tab*) 750 mg PO TID PRN PRN Reason: SPASMS Mupirocin (Bactroban 2 % Oint*) 1 applic TOPICAL BID [facility] Last Admin: 10/07/19 09:11 Dose: 1 applic Naloxone HCl (Narcan*) 0.08 mg IV Q2M PRN PRN Reason: severe induced resp depression Oxycodone/Acetaminophen (Percocet 5/325 Tab*) 1 tab PO Q4H PRN PRN Reason: PAIN - SEVERE Last Admin: 10/06/19 23:53 Dose: 1 tab Pantoprazole Sodium (Protonix Iv*) 40 mg IV Q12HR [facility] Last Admin: 10/07/19 09:11 Dose: 40 mg Terazosin HCl (Hytrin Cap*) 10 mg PO BEDTIME [facility] Last Admin: 10/06/19 22:10 Dose: 10 mg Vital Signs - 8 hr 10/07/19 10/07/19 10/07/19 07:57 08:00 11:37 Temperature 98.7 F 98 F Pulse Rate 75 70 Respiratory 16 16 16 Rate Blood Pressure 146/48 147/56 (mmHg) O2 Sat by Pulse 100 99 Oximetry Oxygen Devices in Use Now: None Appearance: Elderly lady, appears older than stated age, lying in bed in NAD Eyes: No Scleral Icterus Ears/Nose/Mouth/Throat: Mucous Membranes Moist Neck: Trachea Midline Respiratory: Symmetrical Chest Expansion and Respiratory Effort, Clear to Auscultation Cardiovascular: RRR - Normal S1 and S2, +SM Abdominal: NL Sounds; No Tenderness; No Distention, - - PD catheter in place Extremities: - - Right knee surgical scar is clean and dry, no calf tenderness Neurological: Alert and Oriented x 3, NL Muscle Strength and Tone Result Diagrams: 10/07/19 06:51 10/07/19 06:51 Assess/Plan/Problems-Billing Assessment: Mrs Moreira is a 69yo F with PMH of type 2 DM, HTN, seizure disorder diagnosed recently after seizure in the post op period of her right TKA, ESRD on PD, breast CA, hepatitis C, small bowell AVMs with h/o GI bleed and chronic anemia; who presented to ED with c/o fatigue and weakness, found to have a Hb 5.5. - Patient Problems (1) Anemia due to acute blood loss Comment: - Patient has known chronic anemia, but now likely has recurrent GI bleed as she was on Warfarin for DVT prophylaxis after her knee surgery. - Capsule endoscopy in 2018 revealed multiple small bowel AVMs extending from jejunum to ileum. - FOBT positive. - Hb up to 8.4 after 2 PRBC. Continue to monitor H/H. - Plan for EGD today. - Continue Pantoprazole IV. (2) ESRD (end stage renal disease) Comment: - Continue PD as scheduled. (3) Seizure Comment: - Prior admission MRI showed temporal sclerosis, which may have been the provoking cause of her seizures. - Continue Lamotrigine and Keppra. (4) Type II diabetes mellitus Comment: - Was on insulin while in the hospital, but (?) diet controlled at home. - A1c 8.4. - Continue FS with Lispro coverage while she's NPO. (5) HTN (hypertension) Comment: - Controlled. - Continue Clonidine, Diltiazem, Labetalol, Isosorbide (6) DVT prophylaxis Comment: - Patient was on Warfarin for post right TKA DVT prophylaxis. INR 1.98 on admission - received vitamin K and INR is trending down. - SCDs. (7) Full code status Status and Disposition: Inpatient.
[2019-10-07] MEDS ORDERED: Ampicillin ADVAN(*) 1 GM in NS 0.9% 50 ML* 50 ML IVPB ONE (13:52)
[2019-10-07] MEDS ORDERED: ceFAZolin 1 GM in Dextrose (*) 1 GM/50 ML BAG IVPB ONE (13:57)
--- NOTE | 2019-10-07 14:21 | CONSULT ---
Consult Consult: Consult requested for ESRD on PD. Acute Anemia 2/2 AVM on Chronic Anemia of CKD Consult requested by: Dr. Newby, Hospitalist Performed by Dr. Kathy Doyle, [facility] [address] Nephrology 10/07/2019 69 YO AAF, ESRD on CCPD. PMH of small bowel AVMs with h/o GI bleed and chronic anemia; presented to ED with fatigue and weakness. Hb 5.5 s/p 2 Units PRBCs, Hb better 8.4. Of note, has recurrent GI bleed, was on Warfarin for DVT prophylaxis post knee surgery. Capsule endoscopy~2018 revealed multiple small bowel AVMs extending from jejunum to ileum. FOBT positive. Scheduled for EGD today. PD prescription: Volume 8,800 cc. Duration: 9 Hr. 2,200 fill volume & 4 exchanges for 1:47 min each with 1.55 Dextrose. On EPO 16,000 u every other week & IV Venofer 200 mg every other week PMH: Seizure disorder ESRD on CCPD HTN Anemia as above DM2 HCV Breast CA Dyslipidemia Small bowel AVM. HomeMeds: Medication Instructions Recorded Confirmed Type cloNIDine TAB* [Catapres 0.1 MG 0.3 mg PO TID 11/24/17 10/06/19 History TAB*] Terazosin CAP* [Hytrin CAP 5 MG*] 10 mg PO BEDTIME 01/08/18 10/06/19 History Mupirocin 2% OINT* [Bactroban 2 % 1 applic TOPICAL BID 09/24/19 10/06/19 History Oint*] oxyCODONE/Acetamin 5/325 MG* 1 tab PO Q4H PRN 09/24/19 10/06/19 History [Percocet 5/325 TAB*] Hospital Meds: Calcitriol Clonidine Diltiazem Fentanyl Lactated Ringer's 125 cc/Hr Insulin Human Lispro Isosorbide Mononitrate Labetalol Lamotrigine Levetiracetam Methocarbamol Mupirocin Naloxone Oxycodone/Acetaminophen Pantoprazole Terazosin Allergies: enalapril Allergy (Verified 10/06/19 16:43) Swelling Of Face,Lips,& Throat diltiazem Adverse Reaction (Severe, Verified 10/06/19 16:43) See Comment HEART POUND, INCR BP hydralazine Adverse Reaction (Verified 10/06/19 16:43) Palpitations verapamil Adverse Reaction (Verified 10/06/19 16:43) Palpitations Social History: Denied Alcohol, smoking. No IVDA. Family History: Negative for Dialysis, ESRD or Renal Transplant. 12-Point Review of System Constitutional: No Nausea. Feels better. Eyes No blurry vision. No red eye CV: No SOB at rest or exertion, no chest pain no syncope or edema Respiratory: No SOB at rest no cough no wheezing G.I: no pain no blood per rectum but FOBT positive no burning no obstruction symptoms Skin no rash Neurology No new seizures, no neurologic deficit Endocrine diabetes, no heat or cold intolerance Hem/Lymphatic no bleeding no lymph nodes swelling Immune/Allergy no allergic reactions Musculoskeletal: No arthritis, no swelling Psych no anxiety no depression no hallucination Objective: Temp Pulse Resp BP Pulse Ox 98 F 70 16 147/56 99 10/07/19 11:37 10/07/19 11:37 10/07/19 11:37 10/07/19 11:37 10/07/19 11:37 10 Point multi system exam: Constitutional Alert Oriented x 3 HEENT: No Conjunctivitis Abdomen Soft Abdomen No Ascites Heart: NSR, No LE Edema, No murmur Lungs: Clear to auscultation Extremities: No edema, no rash Skin no rash Neurology No deficit. CN intact Hem/Lymph: no palpable lymph nodes Musculoskeletal: No joint swelling Laboratory Reviewed Sodium 132 mmol/L (135-145) L 10/07/19 06:51 Potassium 3.5 mmol/L (3.5-5.0) 10/07/19 06:51 BUN 49 mg/dL (6-24) H 10/07/19 06:51 Creatinine 7.78 mg/dL (0.51-0.95) H 10/07/19 06:51 Calcium 8.1 mg/dL (8.6-10.3) L 10/07/19 06:51 AST 12 U/L (13-39) L 10/06/19 16:47 ALT 7 U/L (7-52) 10/06/19 16:47 Assessment and Plan: Resume PD while in patient, sa,me home prescription CCPD, 4 exchanges, 2200 cc, 1.5% Electrolytes Ok BP Ok, and Volume status no edema.
--- NOTE | 2019-10-07 15:40 | PN ---
Progress Note - Progress Note Date of Service: 10/07/19 Note: GI Brief Push enteroscopy note E: LA-A reflux esophagitis G: GAVE. No active bleeding D: multiple avm's s/p APC at 20W. these were non bleeding J: Active brisk bleeding about 30-40cm past lig of treitz. This was ablated with APC with good effect. Area tattooed with spot ink as this may have been a dielofoy lesion. A total of 9 AVM's ablated with APC with good effect, and an actively bleeding dielofoy lesion at 30-40cm ablated with APC at tattooed with spot for future reference. Impression: Acute on chronic anemia due to GI loss Dielofoy lesion ablated with APC and marked with spot tattoo 9 AVM's ablated with APC REc: Full liquids today Monitor Hgb. If still downtrending suspect more bleeding deeper and would benefit for transfer for balloon enteroscopy. If stable should follow up as outpatient Dr. Prakash. In past she has refused referral to [place] for enteroscopy due to transportation. Hans Ko DO 10/07/19 1532
[2019-10-07] MEDS: Isosorbide Mononitrate ER TAB* 30 MG PO SCH (18:20)
[2019-10-07 18:26] LABS: Hematocrit 28 % (35-47); Hemoglobin 9.5 g/dL (12.0-16.0)
[2019-10-07] MEDS: Terazosin CAP* 5 MG PO SCH (19:54)
--- NOTE | 2019-10-07 22:06 | CONS ---
CC: Dr. Conchita De León CONSULTATION REPORT: DATE OF CONSULT: 10/07/19 REASON FOR CONSULT: Acute blood loss anemia. HISTORY OF PRESENT ILLNESS: This is a very pleasant 69-year-old female with a past medical history of diabetes; end-stage renal disease, on peritoneal dialysis; hyperlipidemia; hyperte nsion, who recently had tonic clonic seizures, who states that she had routine lab work done and the results found that she had a low hemoglobin and was recommended to go to ER for evaluation today. Sh e states that the stool is occasionally dark. Denies any ahmet bright red blood. Denies any abdomina l pain. No nausea or vomiting. Denies any weight loss or weight gain. No diarrhea or constipation. She was evaluated in the ER and found to have a hemoglobin of 5.5 with maroon-colored stool that wa s occult positive. The remainder of 14-point review of systems is grossly negative except for as desc ribed in the HPI. PAST MEDICAL HISTORY: 1. Diabetes. 2. Hypertension. 3. History of anemia due to chronic blood loss, actually had a capsule endoscopy done in 2018 that s howed multiple possible AVMs and a potential small bowel lesion. Balloon enteroscopy was set up for t he patient; however, she could not make the trip to [place] and then refused further evaluation for that secondary to transportation and personal preference. She understood the risk of not going at at time, which was clearly outlined in her prior clinic notes. 4. History of UTI. 5. Candidiasis. 6. Seizure disorder. 7. End-stage renal disease, on peritoneal dialysis. 8. Right breast cancer. PAST SURGICAL HISTORY: Peritoneal dialysis catheter placement, right knee replacement. HOME MEDICATIONS: Include: 1. Percocet. 2. Keppra. 3. Lamictal. 4. Catapres. 5. Amlodipine. 6. Coumadin. 7. Terazosin. 8. Bactrim. 9. Mupirocin. 10. Miconazole. 11. Robaxin. 12. Labetalol. 13. Imdur. 14. Cardizem. 15. Calcitriol. ALLERGIES: Include ENALAPRIL, DILTIAZEM, HYDRALAZINE, and VERAPAMIL. FAMILY HISTORY: No family history of GI cancer or inflammatory bowel disease. SOCIAL HISTORY: Former smoker. Former alcoholic, but sober since 2011. REVIEW OF SYSTEMS: The remainder of the 14-point review of systems is grossly negative except for as described in the HPI. PHYSICAL EXAM: Vital Signs: Blood pressure is 144/49, pulse 65, respiratory rate is 18, she is 95% on 2 L, temperature is 98.2. General: Alert and oriented x3, in no acute distress. HEENT: Atrauma tic, normocephalic. Pupils equal, round, reactive to light. Extraocular movements intact. Conjunct ivae are pink. Sclerae are anicteric. Cardiovascular: Regular rate and rhythm. S1, S2. Pulmonary : Clear to auscultation bilaterally. Abdomen: Soft, nontender, and nondistended. PD catheter on the left. Bowel sounds positive. Extremities: No cyanosis, clubbing, or edema. Psych: Appropriate m ood and affect. LABORATORY DATA: Hemoglobin on presentation 5.5, today 8.4; platelet count is 600. INR 1.46. Creati nine 7.77, BUN 49. ASSESSMENT AND PLAN: This is a 69-year-old female presenting with acute on chronic blood loss anemia . 1. Acute blood loss anemia. Concern for small bowel source. She had a capsule endoscopy with multi ple arteriovenous malformations in the past and a potential small bowel lesion. She had been recomme nded to have an urgent referral to [place] for balloon assisted enteroscopy; however, she had refuse d understanding the risk of not doing so. Today, she presents with symptoms concerning again for a u pper gastrointestinal source. Given the finding on capsule, I will plan on doing an EGD with push en teroscopy to evaluate both the stomach and the small bowel and get as deep as we can, potentially mukul at some of these arteriovenous malformations if they are indeed the cause. I discussed that I would like her to still follow up in [place] eventually for balloon enteroscopy given that it is likely t hat she has a large amount of arteriovenous malformations throughout the entirety of her small bowel and would benefit from a complete evaluation with enteroscopy. I discussed the risks, benefits, and alternatives to EGD with push enteroscopy and the patient would like to proceed as outlined. Recomme nd maintaining H and Hs every 6 hours, keep 2 units of PRBCs on hold, and continue on IV pantoprazole . 2. End-stage renal disease, on peritoneal dialysis. We will plan on giving 1 g of Ancef given the E GD with push enteroscopy as the plan may be to cauterize multiple arteriovenous malformations. 3. History of seizure disorder. We will plan on EGD with push enteroscopy with anesthesia assistlizabeth davidson [id number]/[facility] #: [id number]
[2019-10-08 00:27] LABS: Hematocrit 26 % (35-47); Hemoglobin 8.9 g/dL (12.0-16.0)
--- NOTE | 2019-10-08 03:15 | PRO ---
CC: Dr. Conchita De León; Dr. Dre Prakash ESOPHAGOGASTRODUODENOSCOPY WITH PUSH ENTEROSCOPY NOTE: DATE OF PROCEDURE: 10/07/19 INDICATION FOR PROCEDURE: Anemia due to blood loss. PROCEDURE PERFORMED: Complete esophagogastroduodenoscopy with push enteroscopy with hemostasis contr ol of active Dieulafoy lesion bleeding in small bowel along with ablation of 9 AVMs. DESCRIPTION OF PROCEDURE: After the EGD with push enteroscopy procedure including the risks, benefit s, and alternatives with the risks not limited to perforation, surgery, missed lesions, and/or were explained to the patient, written informed consent was obtained, IV medication was given, and a bite block was placed between the teeth. The pediatric Olympus colonoscope was inserted into the pat ient's oropharynx, into the tubular esophagus. The tubular esophagus had LA-A erosive esophagitis. The scope was advanced through the lower esophageal sphincter into the stomach. There was diffuse GA VE but no active bleeding. One small AVM was identified and cauterized with APC at 20 arteaga with goo d effect. On retroflexion, no significant abnormalities were visualized. The scope was then advance d through the widely patent pylorus into the duodenal bulb, C-loop, and distal duodenum and then push ed well beyond 40 to 50 cm beyond the ligament of Treitz. About 40 to 50 cm beyond, I did encounter fresh blood. I thoroughly washed the area, and there was a small little lesion. It appeared to like ly be a Dieulafoy lesion that was briskly bleeding. This was cauterized with APC with good effect an d there was no residual bleeding. Given that these can be difficult to find again, I did tattoo the area with spotting tattoo. I then washed the area. No active bleeding was noted at this time anymore and slowly withdrew the pediatric colonoscope through the small bowel. Nine additional AVMs were ca uterized with APC at 20 arteaga with good effect. The scope was then removed from the patient. She to lerated the procedure well. She returned to the recovery room in stable condition. IMPRESSION: 1. Complete esophagogastroduodenoscopy with push enteroscopy with successful treatment of Dieulafoy lesion and 9 arteriovenous malformations within the small bowel. 2. LA-A erosive esophagitis. 3. Gastric antral vascular ectasia. RECOMMENDATIONS: Continue to monitor the hemoglobin. If she has evidence of ongoing bleeding, would recommend transfer to a tertiary care center for balloon enteroscopy as she likely has additional bl eeding further within the small bowel. If her hemoglobin remains stable, she may be discharged with o utpatient followup. I do recommend she follow up with her primary lead application architect as an outpatient , Dr. Prakash, and have consideration for a repeat referral to [facility]. I did discuss with her the nature of this and given the findings of a lesion on the previous capsule endoscopy in 2018, the impo rtance of following up. Would recommend daily PPI given the erosive esophagitis. [id number]/[facility] #: [id number]
[2019-10-08] MEDS: Insulin LISPRO* 1 UNITS UNIT SUBCUT SCH ×5 (04:26→20:35)
[2019-10-08 05:17] LABS: ABS Lymphocytes 0.8 10^3/ul (1.0-4.8); ABS Monocytes 0.2 10^3/ul (0-0.8); ABS Neutrophils 6.7 10^3/ul (1.5-7.7); Hematocrit 26 % (35-47); Hemoglobin 8.8 g/dL (12.0-16.0); Lymphocyte % 9.8 %; Mean Corpuscular HGB Conc 34 g/dL (31-36); Mean Corpuscular Hemoglobin 29 pg (27-31); Mean Corpuscular Volume 84 fL (80-97); Mean Platelet Volume 7.5 fL (7.4-10.4); Platelet Count 644 10^3/uL (150-450); Red Blood Count 3.07 10^6 /uL (3.70-4.87); Red Cell Distribution Width 17 % (10-15); White Blood Count 7.7 10^3/uL (3.5-10.8)
[2019-10-08 06:08] LABS: % Iron Saturation 13 % (15-55); Iron 30 ug/dL (50-212); Total Iron Binding Capacity 234 mcg/dL (250-450); Transferrin 167 mg/dL (203-362)
[2019-10-08 06:51] LABS: Ferritin > 1500.0 ng/mL (11-307)
[2019-10-08 06:54] LABS: Folate 9.66 ng/mL (>3.99)
[2019-10-08 09:17] LABS: Anion Gap 12 mmol/L (2-11); CO2 Carbon Dioxide 22 mmol/L (22-32); Calcium 8.1 mg/dL (8.6-10.3); Chloride 97 mmol/L (101-111); Potassium 3.6 mmol/L (3.5-5.0); Sodium 131 mmol/L (135-145)
[2019-10-08] MEDS: Calcitriol CAP* 0.25 MCG PO SCH (09:18)
[2019-10-08] MEDS: lamoTRIgine TAB(*) 25 MG PO SCH (09:18)
[2019-10-08] MEDS: Labetalol TAB* 300 MG PO SCH ×2 (09:19→20:36)
[2019-10-08] MEDS: Diltiazem CD CAP* 240 MG PO SCH (09:19)
[2019-10-08] MEDS: cloNIDine TAB* 0.1 MG PO SCH ×3 (09:19→20:36)
[2019-10-08] MEDS: levETIRAcetam TAB* 500 MG PO SCH (09:20)
[2019-10-08 09:22] LABS: BUN/Creatinine Ratio 5.7 (8-20); Blood Urea Nitrogen 43 mg/dL (6-24); EGFR African American 6.5 (>60); EGFR Non-African American 5.4 (>60); Glucose 316 mg/dL (70-100)
[2019-10-08] MEDS: Pantoprazole IV* 40 MG IV SCH ×2 (09:27→20:37)
--- NOTE | 2019-10-08 10:04 | PN ---
Subjective Date of Service: 10/08/19 Interval History: Sitting in bed on assessment. Reports she feels "great" today. Reports she was able to get up and wash her self up today which is an accomplishment as she has been too fatigued recently to do this task. Denies abd pain, diarrhea, bloody stool, palpitations, weakness, cp, sob. Family History: Unchanged from Admission Social History: Unchanged from Admission Past Medical History: Unchanged from Admission Objective Active Medications: Calcitriol (Rocaltrol Cap*) 0.25 mcg PO DAILY [facility] Last Admin: 10/08/19 09:18 Dose: 0.25 mcg Clonidine HCl (Catapres Tab*) 0.3 mg PO TID [facility] Last Admin: 10/08/19 09:19 Dose: 0.3 mg Dextrose (D50w Syringe 50 Ml*) 12.5 gm IV PUSH .FOR FS < 60 - SS PRN PRN Reason: FS < 60 Diltiazem HCl (Cardizem Cd Cap*) 240 mg PO DAILY [facility] Last Admin: 10/08/19 09:19 Dose: 240 mg Lactated Ringer's (Lactated Ringers 1000 Ml Bag*) 1,000 mls @ 125 mls/hr IV PER RATE [facility] Sodium Chloride (Ns 0.45% 1000 Ml Bag*) 1,000 mls @ 0 mls/hr IV KVO [facility] Last Admin: 10/07/19 13:56 Dose: 10 mls/hr Insulin Human Lispro (Humalog*) 0 units SUBCUT Q4H [facility]; Protocol Last Admin: 10/08/19 09:16 Dose: 2 units Isosorbide Mononitrate (Imdur Er Tab*) 30 mg PO 1800 [facility] Last Admin: 10/07/19 18:20 Dose: 30 mg Labetalol HCl (Trandate Tab*) 300 mg PO BID [facility] Last Admin: 10/08/19 09:19 Dose: 300 mg Lamotrigine (Lamictal Tab(*)) 25 mg PO EVERY OTHER DAY [facility] Last Admin: 10/08/19 09:18 Dose: 25 mg Levetiracetam (Keppra Tab*) 250 mg PO DAILY [facility] Last Admin: 10/08/19 09:20 Dose: 250 mg Methocarbamol (Robaxin Tab*) 750 mg PO TID PRN PRN Reason: SPASMS Mupirocin (Bactroban 2 % Oint*) 1 applic TOPICAL BID [facility] Last Admin: 10/07/19 20:09 Dose: 1 applic Oxycodone/Acetaminophen (Percocet 5/325 Tab*) 1 tab PO Q4H PRN PRN Reason: PAIN - SEVERE Last Admin: 10/06/19 23:53 Dose: 1 tab Pantoprazole Sodium (Protonix Iv*) 40 mg IV Q12HR [facility] Last Admin: 10/08/19 09:27 Dose: 40 mg Terazosin HCl (Hytrin Cap*) 10 mg PO BEDTIME [facility] Last Admin: 10/07/19 19:54 Dose: 10 mg Vital Signs - 8 hr 10/08/19 03:15 Temperature 98.4 F Pulse Rate 74 Respiratory 17 Rate Blood Pressure 146/55 (mmHg) O2 Sat by Pulse 100 Oximetry Oxygen Devices in Use Now: None Appearance: Comfortable, NAD Eyes: No Scleral Icterus Ears/Nose/Mouth/Throat: Clear Oropharnyx, Mucous Membranes Moist Neck: NL Appearance and Movements; NL JVP Respiratory: Symmetrical Chest Expansion and Respiratory Effort, Clear to Auscultation Cardiovascular: NL Sounds; No Murmurs; No JVD, RRR, No Edema Abdominal: NL Sounds; No Tenderness; No Distention, - - Dressing to dialysis port cdi Lymphatic: No Cervical Adenopathy Extremities: No Edema, No Clubbing, Cyanosis Skin: No Rash or Ulcers Neurological: Alert and Oriented x 3 Nutrition: Taking PO's - Nutrition: Malnutrition Diagnosis/Plan Malnutrition Assessment by Registered Dietitian: Malnutrition Assessment Clinical Characteristics Acute,Severe Malnutrition Assessment: Inadequate Oral Intake - Pt reports a good Criteria appetite, 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); currently NPO - anticipate meeting < 50% nutrient needs >5 days (severe) Unintentional Weight Loss - Pt reports unintentional wt loss, though did not provide UBW; current wt 146lb, prev wts on record 180lb (09/11/19), 165 (09/24/19) - 18.9% loss x1 mo Malnutrition Assessment: Nutritional Supplementals/Nourishments - Interventions Recommend advancing diet to renal, consistent carb as able; will send Nepro (425kcal, 19g prot /serv) at D daily to optimize kcal/prot intake; will monitor continued acceptance Glycemic Control - Recommend advancing diet to renal, consistent carb as able; will continue to monitor BG/FS in the setting of T2DM Education - Given NPO status w/ good appetite, pt uninterested in nutrition education/food discussion at this time; will f/u to provide nutrition education as able Malnutrition Assessment: Goals 1) Recommend advancing diet to renal, consistent carb as able 2) Adequate po intake to support lean body mass and hydration status 3) Improve fluid/electrolyte balance w/ adequate po intake, restriction, and repletion PRN in the setting of ESRD on PD 4) Improve glycemic control w/ adequate po and consistent carb intake in the setting of T2DM 5) Maintain bowel regularity w/ adequate po intake w/o development of diarrhea/constipation 6) Questions regarding diet will be answered prior to d/c Result Diagrams: 10/08/19 10:05 10/08/19 05:06 Additional Lab and Data: Laboratory Results - last 24 hr 10/07/19 10/07/19 10/07/19 11:56 17:21 18:16 WBC RBC Hgb 9.5 L Hct 28 L MCV MCH MCHC RDW Plt Count MPV Neut % (Auto) Lymph % (Auto) [place] % (Auto) Eos % (Auto) Baso % (Auto) Absolute Neuts (auto) Absolute Lymphs (auto) Absolute Monos (auto) Absolute Eos (auto) Absolute Basos (auto) Absolute Nucleated RBC Nucleated RBC % Sodium Potassium Chloride Carbon Dioxide Anion Gap BUN Creatinine Est GFR ( Amer) Est GFR (Non-Af Amer) BUN/Creatinine Ratio Glucose POC Glucose (mg/dL) 268 H 312 H Glucose Meter Confirm Calcium Iron TIBC % Saturation Unsat Iron Binding Transferrin Ferritin Vitamin B12 Folate 10/07/19 10/07/19 10/07/19 19:46 20:25 23:23 WBC RBC Hgb Hct MCV MCH MCHC RDW Plt Count MPV Neut % (Auto) Lymph % (Auto) [place] % (Auto) Eos % (Auto) Baso % (Auto) Absolute Neuts (auto) Absolute Lymphs (auto) Absolute Monos (auto) Absolute Eos (auto) Absolute Basos (auto) Absolute Nucleated RBC Nucleated RBC % Sodium Potassium Chloride Carbon Dioxide Anion Gap BUN Creatinine Est GFR ( Amer) Est GFR (Non-Af Amer) BUN/Creatinine Ratio Glucose POC Glucose (mg/dL) 422 H* 350 H Glucose Meter Confirm 388 H Calcium Iron TIBC % Saturation Unsat Iron Binding Transferrin Ferritin Vitamin B12 Folate 10/08/19 10/08/19 10/08/19 00:23 04:22 05:06 WBC 7.7 RBC 3.07 L Hgb 8.9 L 8.8 L Hct 26 L 26 L MCV 84 MCH 29 MCHC 34 RDW 17 H Plt Count 644 H MPV 7.5 Neut % (Auto) 87.2 Lymph % (Auto) 9.8 [place] % (Auto) 2.7 Eos % (Auto) 0.0 Baso % (Auto) 0.3 Absolute Neuts (auto) 6.7 Absolute Lymphs (auto) 0.8 L Absolute Monos (auto) 0.2 Absolute Eos (auto) 0.0 Absolute Basos (auto) 0.0 Absolute Nucleated RBC 0.0 Nucleated RBC % 0.0 Sodium Potassium Chloride Carbon Dioxide Anion Gap BUN Creatinine Est GFR ( Amer) Est GFR (Non-Af Amer) BUN/Creatinine Ratio Glucose POC Glucose (mg/dL) 332 H Glucose Meter Confirm Calcium Iron TIBC % Saturation Unsat Iron Binding Transferrin Ferritin Vitamin B12 Folate 10/08/19 10/08/19 05:06 07:33 WBC RBC Hgb Hct MCV MCH MCHC RDW Plt Count MPV Neut % (Auto) Lymph % (Auto) [place] % (Auto) Eos % (Auto) Baso % (Auto) Absolute Neuts (auto) Absolute Lymphs (auto) Absolute Monos (auto) Absolute Eos (auto) Absolute Basos (auto) Absolute Nucleated RBC Nucleated RBC % Sodium 131 L Potassium 3.6 Chloride 97 L Carbon Dioxide 22 Anion Gap 12 H BUN 43 H Creatinine 7.52 H Est GFR ( Amer) 6.5 Est GFR (Non-Af Amer) 5.4 BUN/Creatinine Ratio 5.7 L Glucose 316 H POC Glucose (mg/dL) 241 H Glucose Meter Confirm Calcium 8.1 L Iron 30 L TIBC 234 L % Saturation 13 L Unsat Iron Binding < 219 Transferrin 167 L Ferritin > 1500.0 H Vitamin B12 1100 H Folate 9.66 Microbiology and Other Data: . Assess/Plan/Problems-Billing Assessment: Mrs Moreira is a 69yo F with PMH of type 2 DM, HTN, seizure disorder diagnosed recently after seizure in the post op period of her right TKA, ESRD on PD, breast CA, hepatitis C, small bowell AVMs with h/o GI bleed and chronic anemia; who presented to ED with c/o fatigue and weakness, found to have a Hb 5.5. - Patient Problems (1) Anemia due to acute blood loss Comment: - H&H stable - EGD yesterday with intervention. - GI recommends continue to monitor H&H (said daily was fine as it is now stable ) and if continued blood loss may need transfer. If stable H&H then possible d/ c with outpatient follow up. Also continue daily PPI - Capsule endoscopy in 2018 revealed multiple small bowel AVMs extending from jejunum to ileum. - FOBT positive. - Continue Pantoprazole IV. - Advanced diet per GI (2) Seizure Comment: - No seizure activity noted. - Cont seizure precautions - Prior admission MRI showed temporal sclerosis, which may have been the provoking cause of her seizures. - Continue Lamotrigine and Keppra. (3) ESRD (end stage renal disease) Comment: - PD last evening per patient. - Continue PD as scheduled. (4) HTN (hypertension) Comment: - Controlled. - Continue Clonidine, Diltiazem, Labetalol, Isosorbide (5) Type II diabetes mellitus Comment: - 200 to 300 FSBG - Was on insulin while in the hospital, but (?) diet controlled at home. Will need f/u outpatient for better diabetes management - A1c 8.4. - Continue FS with Lispro coverage (6) DVT prophylaxis Comment: - SCD - No chemical proph due to anemia and known bleed (7) Full code status Status and Disposition: Inpatient. Attending: Roz Roblero
[2019-10-08 10:11] LABS: Hematocrit 26 % (35-47); Hemoglobin 8.9 g/dL (12.0-16.0)
[2019-10-08] MEDS: Mupirocin 2% OINT* TUBE TOPICAL SCH ×2 (12:58→20:41)
[2019-10-08] MEDS: Isosorbide Mononitrate ER TAB* 30 MG PO SCH (16:50)
[2019-10-08] MEDS: Terazosin CAP* 5 MG PO SCH (20:37)
--- NOTE | 2019-10-08 21:54 | PN ---
Progress Note - Progress Note Date of Service: 10/08/19 Note: Inpatient Nephrology F/U note: Performed by Dr. Kathy Doyle, [facility] Nephrology 10/08/2019 69 YO AAF, ESRD on CCPD. PMH of small bowel AVMs with Hb 5.5 s/p 2 Units PRBCs. Hb stable 8.9/26 was 8.8/ 26 s/p EGD and Push enteroscopy, s/p Rx of dieulafoy lesion. Has erosive esophagitis and vascular ectasias too. Of note, capsule endoscopy~2018 multiple small bowel AVMs extending from jejunum to ileum. PD prescription: Volume 8,800 cc. Duration: 9 Hr. 2,200 fill volume & 4 exchanges for 1:47 min each with 1.55 Dextrose. On EPO 16,000 u every other week & IV Venofer 200 mg every other week She was on CCPD last night with UF 400 cc, feels well. No Constipation, and no pain. Hospital Meds: Calcitriol Clonidine Diltiazem Insulin Human Lispro Isosorbide Mononitrate Labetalol Lamotrigine Levetiracetam Methocarbamol Mupirocin Oxycodone/Acetaminophen Pantoprazole Sodium Terazosin Objective: Temp Pulse Resp BP Pulse Ox 97.9 F 70 16 154/55 97 10/08/19 15:15 10/08/19 15:15 10/08/19 11:15 10/08/19 15:15 10/08/19 15:15 10 Point multi system exam: Constitutional Alert Oriented x 3 HEENT: No Conjunctivitis Abdomen Soft Abdomen No Ascites Heart: NSR, No LE Edema, No murmur Lungs: Clear to auscultation Extremities: No edema, no rash Skin no rash Neurology No deficit. CN intact Hem/Lymph: no palpable lymph nodes Musculoskeletal: No joint swelling Laboratory Reviewed Sodium 131 mmol/L (135-145) L 10/08/19 05:06 Potassium 3.6 mmol/L (3.5-5.0) 10/08/19 05:06 BUN 43 mg/dL (6-24) H 10/08/19 05:06 Creatinine 7.52 mg/dL (0.51-0.95) H 10/08/19 05:06 Calcium 8.1 mg/dL (8.6-10.3) L 10/08/19 05:06 AST 12 U/L (13-39) L 10/06/19 16:47 ALT 7 U/L (7-52) 10/06/19 16:47 Assessment and Plan: Continue CCPD, same prescription, 4 exchanges, 2200 cc of 1.5% Electrolytes Ok BP Ok, and no edema.
[2019-10-09] MEDS: Insulin LISPRO* 1 UNITS UNIT SUBCUT SCH ×7 (00:14→23:57)
[2019-10-09] MEDS ORDERED: Isosorbide Mononitrate ER TAB* 30 MG PO ONE (03:33)
[2019-10-09 05:54] LABS: Hematocrit 25 % (35-47); Hemoglobin 8.4 g/dL (12.0-16.0)
[2019-10-09] MEDS: levETIRAcetam TAB* 500 MG PO SCH (08:18)
[2019-10-09] MEDS: Diltiazem CD CAP* 240 MG PO SCH (08:19)
[2019-10-09] MEDS: cloNIDine TAB* 0.1 MG PO SCH ×2 (08:20→14:59)
[2019-10-09] MEDS: Labetalol TAB* 300 MG PO SCH ×2 (08:20→19:50)
[2019-10-09] MEDS: Calcitriol CAP* 0.25 MCG PO SCH (08:20)
[2019-10-09] MEDS: Mupirocin 2% OINT* TUBE TOPICAL SCH ×2 (08:21→19:51)
[2019-10-09] MEDS: Pantoprazole IV* 40 MG IV SCH ×2 (08:21→19:50)
[2019-10-09 12:11] LABS: Hematocrit 24 % (35-47); Hemoglobin 8.2 g/dL (12.0-16.0)
[2019-10-09 12:28] LABS: Potassium 3.4 mmol/L (3.5-5.0)
[2019-10-09 12:34] LABS: BUN/Creatinine Ratio 5.5 (8-20); EGFR African American 6.8 (>60); EGFR Non-African American 5.6 (>60)
[2019-10-09 13:00] LABS: Magnesium 1.7 mg/dL (1.9-2.7)
[2019-10-09] MEDS ORDERED: Magnesium Sulfate 2 GM IV* 2 GM/50 ML BAG IVPB ONE (14:26)
[2019-10-09] MEDS ORDERED: Potassium Chlor TAB* 20 MEQ TAB.ER PO ONE (14:27)
[2019-10-09] MEDS: Isosorbide Mononitrate ER TAB* 30 MG PO SCH (17:36)
--- NOTE | 2019-10-09 18:05 | PN ---
Subjective Date of Service: 10/09/19 Interval History: Patient stated that she has not had any bowel movements since the day before yesterday. Denies feeling constipated. Also denies lightheadedness, dizziness, chest pain palpitations, fever/chills, abdominal pain, nausea, vomiting, issues moving her bladder. HH is continuing to slightly trend down. Family History: Unchanged from Admission Social History: Unchanged from Admission Past Medical History: Unchanged from Admission Objective Active Medications: Calcitriol (Rocaltrol Cap*) 0.25 mcg PO DAILY [facility] Last Admin: 10/09/19 08:20 Dose: 0.25 mcg Clonidine HCl (Catapres Tab*) 0.3 mg PO TID [facility] Last Admin: 10/09/19 14:59 Dose: 0.3 mg Dextrose (D50w Syringe 50 Ml*) 12.5 gm IV PUSH .FOR FS < 60 - SS PRN PRN Reason: FS < 60 Diltiazem HCl (Cardizem Cd Cap*) 240 mg PO DAILY [facility] Last Admin: 10/09/19 08:19 Dose: 240 mg Insulin Human Lispro (Humalog*) 0 units SUBCUT Q4H [facility]; Protocol Last Admin: 10/09/19 17:36 Dose: 2 units Isosorbide Mononitrate (Imdur Er Tab*) 30 mg PO 1800 [facility] Last Admin: 10/09/19 17:36 Dose: 30 mg Labetalol HCl (Trandate Tab*) 300 mg PO BID [facility] Last Admin: 10/09/19 08:20 Dose: 300 mg Lamotrigine (Lamictal Tab(*)) 25 mg PO EVERY OTHER DAY [facility] Last Admin: 10/08/19 09:18 Dose: 25 mg Levetiracetam (Keppra Tab*) 250 mg PO DAILY [facility] Last Admin: 10/09/19 08:18 Dose: 250 mg Methocarbamol (Robaxin Tab*) 750 mg PO TID PRN PRN Reason: SPASMS Mupirocin (Bactroban 2 % Oint*) 1 applic TOPICAL BID [facility] Last Admin: 10/09/19 08:21 Dose: 1 applic Oxycodone/Acetaminophen (Percocet 5/325 Tab*) 1 tab PO Q4H PRN PRN Reason: PAIN - SEVERE Last Admin: 10/06/19 23:53 Dose: 1 tab Pantoprazole Sodium (Protonix Iv*) 40 mg IV Q12HR [facility] Last Admin: 10/09/19 08:21 Dose: 40 mg Terazosin HCl (Hytrin Cap*) 10 mg PO BEDTIME [facility] Last Admin: 10/08/19 20:37 Dose: 10 mg Vital Signs - 8 hr 10/09/19 11:15 Temperature 98.7 F Pulse Rate 72 Respiratory 17 Rate Blood Pressure 147/53 (mmHg) O2 Sat by Pulse 100 Oximetry Oxygen Devices in Use Now: None Appearance: This is a well developed woman seen sitting up in bed, no acute distress. Eyes: No Scleral Icterus, PERRLA Ears/Nose/Mouth/Throat: NL Teeth, Lips, Gums, Clear Oropharnyx, Mucous Membranes Moist Neck: NL Appearance and Movements; NL JVP, Trachea Midline Respiratory: Symmetrical Chest Expansion and Respiratory Effort, Clear to Auscultation Cardiovascular: NL Sounds; No Murmurs; No JVD, RRR, No Edema Abdominal: NL Sounds; No Tenderness; No Distention Lymphatic: No Cervical Adenopathy Extremities: No Edema, No Clubbing, Cyanosis Skin: No Rash or Ulcers, No Nodules or Sclerosis Neurological: Alert and Oriented x 3 Lines/Tubes/Other Access: Clean, Dry and Intact Peripheral IV Nutrition: Taking PO's - Nutrition: Malnutrition Diagnosis/Plan Malnutrition Assessment by Registered Dietitian: Malnutrition Assessment Clinical Characteristics Acute,Severe Malnutrition Assessment: Inadequate Oral Intake - Pt reports a good Criteria appetite, 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); currently NPO - anticipate meeting < 50% nutrient needs >5 days (severe) Unintentional Weight Loss - Pt reports unintentional wt loss, though did not provide UBW; current wt 146lb, prev wts on record 180lb (09/11/19), 165 (09/24/19) - 18.9% loss x1 mo Malnutrition Assessment: Nutritional Supplementals/Nourishments - Interventions Recommend advancing diet to renal, consistent carb as able; will send Nepro (425kcal, 19g prot /serv) at D daily to optimize kcal/prot intake; will monitor continued acceptance Glycemic Control - Recommend advancing diet to renal, consistent carb as able; will continue to monitor BG/FS in the setting of T2DM Education - Given NPO status w/ good appetite, pt uninterested in nutrition education/food discussion at this time; will f/u to provide nutrition education as able Malnutrition Assessment: Goals 1) Recommend advancing diet to renal, consistent carb as able 2) Adequate po intake to support lean body mass and hydration status 3) Improve fluid/electrolyte balance w/ adequate po intake, restriction, and repletion PRN in the setting of ESRD on PD 4) Improve glycemic control w/ adequate po and consistent carb intake in the setting of T2DM 5) Maintain bowel regularity w/ adequate po intake w/o development of diarrhea/constipation 6) Questions regarding diet will be answered prior to d/c Result Diagrams: 10/09/19 12:06 10/09/19 12:06 Additional Lab and Data: Laboratory Results - last 24 hr 10/07/19 10/07/19 10/07/19 11:56 17:21 18:16 WBC RBC Hgb 9.5 L Hct 28 L MCV MCH MCHC RDW Plt Count MPV Neut % (Auto) Lymph % (Auto) [place] % (Auto) Eos % (Auto) Baso % (Auto) Absolute Neuts (auto) Absolute Lymphs (auto) Absolute Monos (auto) Absolute Eos (auto) Absolute Basos (auto) Absolute Nucleated RBC Nucleated RBC % Sodium Potassium Chloride Carbon Dioxide Anion Gap BUN Creatinine Est GFR ( Amer) Est GFR (Non-Af Amer) BUN/Creatinine Ratio Glucose POC Glucose (mg/dL) 268 H 312 H Glucose Meter Confirm Calcium Iron TIBC % Saturation Unsat Iron Binding Transferrin Ferritin Vitamin B12 Folate 10/07/19 10/07/19 10/07/19 19:46 20:25 23:23 WBC RBC Hgb Hct MCV MCH MCHC RDW Plt Count MPV Neut % (Auto) Lymph % (Auto) [place] % (Auto) Eos % (Auto) Baso % (Auto) Absolute Neuts (auto) Absolute Lymphs (auto) Absolute Monos (auto) Absolute Eos (auto) Absolute Basos (auto) Absolute Nucleated RBC Nucleated RBC % Sodium Potassium Chloride Carbon Dioxide Anion Gap BUN Creatinine Est GFR ( Amer) Est GFR (Non-Af Amer) BUN/Creatinine Ratio Glucose POC Glucose (mg/dL) 422 H* 350 H Glucose Meter Confirm 388 H Calcium Iron TIBC % Saturation Unsat Iron Binding Transferrin Ferritin Vitamin B12 Folate 10/08/19 10/08/19 10/08/19 00:23 04:22 05:06 WBC 7.7 RBC 3.07 L Hgb 8.9 L 8.8 L Hct 26 L 26 L MCV 84 MCH 29 MCHC 34 RDW 17 H Plt Count 644 H MPV 7.5 Neut % (Auto) 87.2 Lymph % (Auto) 9.8 [place] % (Auto) 2.7 Eos % (Auto) 0.0 Baso % (Auto) 0.3 Absolute Neuts (auto) 6.7 Absolute Lymphs (auto) 0.8 L Absolute Monos (auto) 0.2 Absolute Eos (auto) 0.0 Absolute Basos (auto) 0.0 Absolute Nucleated RBC 0.0 Nucleated RBC % 0.0 Sodium Potassium Chloride Carbon Dioxide Anion Gap BUN Creatinine Est GFR ( Amer) Est GFR (Non-Af Amer) BUN/Creatinine Ratio Glucose POC Glucose (mg/dL) 332 H Glucose Meter Confirm Calcium Iron TIBC % Saturation Unsat Iron Binding Transferrin Ferritin Vitamin B12 Folate 10/08/19 10/08/19 05:06 07:33 WBC RBC Hgb Hct MCV MCH MCHC RDW Plt Count MPV Neut % (Auto) Lymph % (Auto) [place] % (Auto) Eos % (Auto) Baso % (Auto) Absolute Neuts (auto) Absolute Lymphs (auto) Absolute Monos (auto) Absolute Eos (auto) Absolute Basos (auto) Absolute Nucleated RBC Nucleated RBC % Sodium 131 L Potassium 3.6 Chloride 97 L Carbon Dioxide 22 Anion Gap 12 H BUN 43 H Creatinine 7.52 H Est GFR ( Amer) 6.5 Est GFR (Non-Af Amer) 5.4 BUN/Creatinine Ratio 5.7 L Glucose 316 H POC Glucose (mg/dL) 241 H Glucose Meter Confirm Calcium 8.1 L Iron 30 L TIBC 234 L % Saturation 13 L Unsat Iron Binding < 219 Transferrin 167 L Ferritin > 1500.0 H Vitamin B12 1100 H Folate 9.66 Microbiology and Other Data: . Assess/Plan/Problems-Billing Assessment: Mrs Moreira is a 69yo F with PMH of type 2 DM, HTN, seizure disorder diagnosed recently after seizure in the post op period of her right TKA, ESRD on PD, breast CA, hepatitis C, small bowell AVMs with h/o GI bleed and chronic anemia; who presented to ED with c/o fatigue and weakness, found to have a Hb 5.5. - Patient Problems (1) Anemia due to acute blood loss Current Visit: Yes Status: Acute Code(s): D62 - ACUTE POSTHEMORRHAGIC ANEMIA SNOMED Code(s): 796053060 Comment: - H&H trending down slightly. Will recheck in AM. - EGD ablated 9 AVMs and repaired a dieulafoy lesion. - GI recommends continue to monitor H&H (said daily was fine as it is now stable ) and if continued blood loss may need transfer. If stable H&H then possible d/ c with outpatient follow up. Also continue daily PPI - Capsule endoscopy in 2018 revealed multiple small bowel AVMs extending from jejunum to ileum. - FOBT positive. - Continue Pantoprazole IV. (2) Seizure Current Visit: Yes Status: Acute Code(s): R56.9 - UNSPECIFIED CONVULSIONS SNOMED Code(s): 67134944 Comment: - No seizure activity noted. - Cont seizure precautions, lamotragine and keppra. - Prior admission MRI showed temporal sclerosis, which may have been the provoking cause of her seizures. - Continue Lamotrigine and Keppra. (3) ESRD (end stage renal disease) Current Visit: Yes Status: Chronic Code(s): N18.6 - END STAGE RENAL DISEASE SNOMED Code(s): 25157675 Comment: - Continue PD as scheduled. (4) HTN (hypertension) Current Visit: Yes Status: Chronic Code(s): I10 - ESSENTIAL (PRIMARY) HYPERTENSION SNOMED Code(s): 18735243 Comment: - Elevated as high as 170 systolically. - Continue Clonidine, Diltiazem, Labetalol, Isosorbide (5) Type II diabetes mellitus Current Visit: Yes Status: Chronic Comment: - 200 to 300 FSBG - States that she normally uses lantus and lispro at home. Advised her to follow up with PCP for tighter glycemic control, goal of HgB A1C is 8%. - A1c 8.4. - Continue FS with Lispro coverage (6) DVT prophylaxis Current Visit: Yes Status: Acute Code(s): HPV5249 - SNOMED Code(s): 211659909 Comment: - SCD - No chemical proph due to anemia and known bleed (7) Full code status Current Visit: Yes Status: Acute Code(s): Z78.9 - OTHER SPECIFIED HEALTH STATUS SNOMED Code(s): 141860070 Status and Disposition: Inpatient. Attending: Roz Roblero
[2019-10-09] MEDS: Terazosin CAP* 5 MG PO SCH (19:50)
--- NOTE | 2019-10-09 20:53 | PN ---
Progress Note - Progress Note Date of Service: 10/09/19 Note: Inpatient Nephrology F/U note: Performed by Dr. Kathy Doyle, [facility] Nephrology 10/09/2019 69 YO AAF ESRD on CCPD. Small bowel AVMs Severe Anemia Hb 5.5 s/p 2 Units PRBCs. Hb dropping slolwly. GI wary. May need transfere for further intervention if Hb keep dropping. EGD and enteroscopy, s/p Rx of AVM& dieulafoy lesions. PD prescription: Volume 8,800 cc. Duration: 9 Hr. 2,200 fill volume & 4 exchanges for 1:47 min each with 1.5% Dextrose. On EPO 16,000 u every other week & IV Venofer 200 mg every other week She was on CCPD last night Feels well. Nc/c of some Constipation. No abdominal pain. Hospital Meds: Calcitriol Clonidine Diltiazem Insulin Human Lispro Isosorbide Mononitrate Labetalol Lamotrigine Levetiracetam Methocarbamol Mupirocin Oxycodone/Acetaminophen Pantoprazole Terazosin Objective: Temp Pulse Resp BP Pulse Ox 98.5 F 65 16 146/52 99 10/09/19 20:13 10/09/19 20:13 10/09/19 20:13 10/09/19 20:13 10/09/19 20:13 10 Point multi system exam: Constitutional Alert Oriented x 3 HEENT: No Conjunctivitis Abdomen Soft Abdomen No Ascites. PD cath clean exit site. Heart: NSR, No LE Edema, No murmur Lungs: Clear to auscultation Extremities: No edema, no rash Skin no rash Neurology No deficit. CN intact Hem/Lymph: no palpable lymph nodes Musculoskeletal: No joint swelling Laboratory Reviewed Sodium 133 mmol/L (135-145) L 10/09/19 12:06 Potassium 3.4 mmol/L (3.5-5.0) L 10/09/19 12:06 BUN 40 mg/dL (6-24) H 10/09/19 12:06 Creatinine 7.26 mg/dL (0.51-0.95) H 10/09/19 12:06 Calcium 8.0 mg/dL (8.6-10.3) L 10/09/19 12:06 Magnesium 1.7 mg/dL (1.9-2.7) L 10/09/19 12:06 AST 12 U/L (13-39) L 10/06/19 16:47 ALT 7 U/L (7-52) 10/06/19 16:47 Assessment and Plan: Continue CCPD, same prescription, 4 exchanges, 2200 cc of 1.5% Keep K >4.0 BP Ok, and no edema. Anemia Rx per GI
[2019-10-09] MEDS ORDERED: cloNIDine TAB* 0.1 MG PO SCH (21:00)
[2019-10-10] MEDS ORDERED: hydrOXYzine HCL TAB* 10 MG PO ONE (00:01)
--- NOTE | 2019-10-10 00:08 | PN ---
Hospitalist Progress Note Date of Service: 10/10/19 Rn called, Pt requesting Ativan to help sleep, says it is home med. PMPR checked (Ref# [id number]) and was prescribed 0.5mg ativan po MDD2 for 60 tabs back on from Dr. De León and previously another 60 tabs 11/30/[address] Lacy. Will trial atarax po now.
[2019-10-10] MEDS ORDERED: Calcium Carbonate CHEW TAB* 500 MG (TUMS) PO PRN (03:45)
[2019-10-10] MEDS: Insulin LISPRO* 1 UNITS UNIT SUBCUT SCH ×2 (03:54→09:16)
[2019-10-10 06:53] LABS: ABS Basophils 0.1 10^3/ul (0-0.2); ABS Eosinophils 0.1 10^3/ul (0-0.6); ABS Lymphocytes 1.8 10^3/ul (1.0-4.8); ABS Monocytes 1.1 10^3/ul (0-0.8); Eosinophil % 0.8 %; Hematocrit 26 % (35-47); Hemoglobin 9.2 g/dL (12.0-16.0); Lymphocyte % 17.6 %; Mean Corpuscular HGB Conc 35 g/dL (31-36); Mean Corpuscular Hemoglobin 30 pg (27-31); Mean Corpuscular Volume 85 fL (80-97); Mean Platelet Volume 7.4 fL (7.4-10.4); Nucleated Red Blood Cells % 0.1; Platelet Count 620 10^3/uL (150-450); Red Blood Count 3.08 10^6 /uL (3.70-4.87); Red Cell Distribution Width 17 % (10-15)
[2019-10-10 06:59] LABS: BUN/Creatinine Ratio 5.4 (8-20); EGFR Non-African American 5.8 (>60); Magnesium 2.2 mg/dL (1.9-2.7); Potassium 3.7 mmol/L (3.5-5.0)
[2019-10-10 08:17] VITALS: BP 150/55
[2019-10-10] MEDS ORDERED: cloNIDine TAB* 0.1 MG PO SCH (09:00)
[2019-10-10] MEDS: Diltiazem CD CAP* 240 MG PO SCH (09:15)
[2019-10-10] MEDS: lamoTRIgine TAB(*) 25 MG PO SCH (09:15)
[2019-10-10] MEDS: Calcitriol CAP* 0.25 MCG PO SCH (09:15)
[2019-10-10] MEDS: Mupirocin 2% OINT* TUBE TOPICAL SCH (09:15)
[2019-10-10] MEDS: Labetalol TAB* 300 MG PO SCH (09:15)
[2019-10-10] MEDS: levETIRAcetam TAB* 500 MG PO SCH (09:15)
[2019-10-10] MEDS: Pantoprazole IV* 40 MG IV SCH (09:16)
[2019-10-10] MEDS ORDERED: Al Hydrox/Mg Hydrox/Simet LIQ* 30 ML UDC PO ONE (09:56)
== END 2019-10-10 10:35 | disposition home or self-care (01) | DRG 377 ==
LOC: ED 16:35 → MEDTELE 20:02
PROVIDERS: ADMIT Internal Medicine; ATTEND Internal Medicine
PROC: 30233N1 Transfusion of Nonautologous Red Blood Cells into Peripheral Vein, Percutaneous Approach (ICD-10-PCS; 2019-10-06)
PROC: 0W3P8ZZ Control Bleeding in Gastrointestinal Tract, Via Natural or Artificial Opening Endoscopic (ICD-10-PCS; principal; 2019-10-07)
PROC: 0D598ZZ Destruction of Duodenum, Via Natural or Artificial Opening Endoscopic (ICD-10-PCS; 2019-10-07)
PROC: 0D568ZZ Destruction of Stomach, Via Natural or Artificial Opening Endoscopic (ICD-10-PCS; 2019-10-07)
PROC: 0D5A8ZZ Destruction of Jejunum, Via Natural or Artificial Opening Endoscopic (ICD-10-PCS; 2019-10-07)
PROC: 3E1M39Z Irrigation of Peritoneal Cavity using Dialysate, Percutaneous Approach (ICD-10-PCS; 2019-10-07)
PROC: 3E1M39Z Irrigation of Peritoneal Cavity using Dialysate, Percutaneous Approach (ICD-10-PCS; 2019-10-08)
PROC: 3E1M39Z Irrigation of Peritoneal Cavity using Dialysate, Percutaneous Approach (ICD-10-PCS; 2019-10-09)
DX: K31.811 Angiodysplasia of stomach and duodenum with bleeding (principal); N18.6 End stage renal disease; E43 Unspecified severe protein-calorie malnutrition; I12.0 Hypertensive chronic kidney disease with stage 5 chronic kidney disease or end stage renal disease; D62 Acute posthemorrhagic anemia; K22.10 Ulcer of esophagus without bleeding; D63.1 Anemia in chronic kidney disease; E78.5 Hyperlipidemia, unspecified; E11.22 Type 2 diabetes mellitus with diabetic chronic kidney disease; G93.81 Temporal sclerosis; G40.409 Other generalized epilepsy and epileptic syndromes, not intractable, without status epilepticus; F10.21 Alcohol dependence, in remission; Z96.651 Presence of right artificial knee joint; Z99.2 Dependence on renal dialysis; Z85.3 Personal history of malignant neoplasm of breast; Z86.19 Personal history of other infectious and parasitic diseases; Z79.01 Long term (current) use of anticoagulants; Z79.899 Other long term (current) drug therapy; Z88.8 Allergy status to other drugs, medicaments and biological substances; Z83.3 Family history of diabetes mellitus; Z82.49 Family history of ischemic heart disease and other diseases of the circulatory system; Z87.891 Personal history of nicotine dependence; Z68.24 Body mass index [BMI] 24.0-24.9, adult
CPT/HCPCS: 36415; 80048; 80053; 82272; 82607; 82728; 82746; 82947; 83540; 83550; 83735; 85014; 85018; 85025; 85610; 85730; 86850; 86900; 86901; 86922; 93005; 99284; A9270-GY; C9132; J0690; J2250; J3010; J3430; J3475; P9040

== ENCOUNTER → 2019-11-11 07:14 | Day surgery (SDC) | payer MEDICARE ==
[~2019-11-11 07:14] MED LIST changes: -Acetaminophen TAB* 325 MG PO PRN; -Buffered Lidocaine 1% SYRIN* 1 ML/SYRINGE INTRADERM ONE; -Bupivacaine 0.25% W/EPI* 10 ML SDV ONE; +Calcitriol CAP* 0.25 MCG PO ONE; -Cisatracurium* 2 MG/ML MDV 5 ML ONE; +Clopidogrel TAB* 75 MG ONE; -DiMENhydriNATE IV* 50 MG/ML VIAL IV PUSH PRN; +Diltiazem CD CAP* 240 MG PO ONE; -Etomidate* 2 MG/ML 10 ML VIAL ONE; -Famotidine TAB* 20 MG ONE; -Famotidine TAB* 20 MG PO ONE; -Glycopyrrolate IV* 0.2 MG/ML 1 ML VIAL ONE; +Heparin 2 UNITS/ML IVPREMIX* 1,000 ML IV ONE; +Heparin 2 UNITS/ML IVPREMIX* 2,000 ML IV ONE; -Heparin DIALYSIS ONLY(*) 1,000 UNITS/ML VIAL ONE; +Heparin VIAL(*) 5000 UNITS/ML VIAL (FIVE THOUSAND) ONE; +Heparin(*) 1000 UNIT/ML 10 ML VIAL CATH LAB IV ONE; +Iodixanol 320 (CONTRAST) 100 ML SDV ONE; +LORazepam TAB(*) 1 MG ONE; +Labetalol TAB* 300 MG PO ONE; +Lidocaine 1% INJ* 10 MG/ML 30 ML SDV ONE; -Lidocaine 2% PF * 5 ML VIAL ONE; -Metoclopramide IV* 5 MG/ML 2 ML VIAL IV SLOW PU ONE; -Metoclopramide IV* 5 MG/ML 2 ML VIAL ONE; -Midazolam* 1 MG/ML 2 ML VIAL (2 MG) ONE; +Midazolam* 1 MG/ML 5 ML VIAL (5 MG) ONE; -NS 0.45% 1000 ML BAG* 1,000 ML IV SCH; -Naloxone* 0.4 MG/ML 1 ML VIAL IV PRN; -Neostigmine Methylsulfate* 3 MG/3 ML SYRINGE ONE; -Ondansetron INJ* 2 MG/ML VIAL ONE; +Pantoprazole TAB * 40 MG TAB PO ONE; -Propofol* 10 MG/ML 20 ML BTL ONE; +amLODIPine TAB* 5 MG PO ONE; -ceFAZolin 2 GM in NS PREMIX(*) 2 GM/100 ML BAG IVPB ONE; -fentaNYL* 50 MCG/ML 2 ML VIAL (100 MCG VIAL) IV PRN; -oxyCODONE/Acetamin 5/325 MG* TAB ONE; -oxyCODONE/Acetamin 5/325 MG* TAB PO PRN
[2019-11-11 07:53] LABS: ABS Basophils 0.1 10^3/ul (0-0.2); ABS Eosinophils 0.1 10^3/ul (0-0.6); ABS Lymphocytes 1.5 10^3/ul (1.0-4.8); ABS Monocytes 0.7 10^3/ul (0-0.8); ABS Neutrophils 4.4 10^3/ul (1.5-7.7); Eosinophil % 1.2 %; Hematocrit 26 % (35-47); Hemoglobin 8.9 g/dL (12.0-16.0); Lymphocyte % 21.9 %; Mean Corpuscular HGB Conc 34 g/dL (31-36); Mean Corpuscular Hemoglobin 29 pg (27-31); Mean Corpuscular Volume 84 fL (80-97); Mean Platelet Volume 7.5 fL (7.4-10.4); Platelet Count 401 10^3/uL (150-450); Red Blood Count 3.12 10^6 /uL (3.70-4.87); Red Cell Distribution Width 17 % (10-15); White Blood Count 6.7 10^3/uL (3.5-10.8)
[2019-11-11 08:02] LABS: Activated Partial Thrombo Time 35.5 seconds (26.0-38.0); INR 1.08 (0.82-1.09)
[2019-11-11 08:16] LABS: Calcium 8.6 mg/dL (8.6-10.3); EGFR African American 8.1 (>60); EGFR Non-African American 6.7 (>60); Potassium 3.5 mmol/L (3.5-5.0)
[2019-11-11 13:02] VITALS: BP 148/68
== END | disposition home or self-care (01) ==
LOC: CHICATH 07:14
PROVIDERS: ATTEND Radiology Diagnostic Radiology
DX: I70.263 Atherosclerosis of native arteries of extremities with gangrene, bilateral legs (principal); E11.621 Type 2 diabetes mellitus with foot ulcer; E11.51 Type 2 diabetes mellitus with diabetic peripheral angiopathy without gangrene; L97.419 Non-pressure chronic ulcer of right heel and midfoot with unspecified severity; Z79.4 Long term (current) use of insulin; N18.4 Chronic kidney disease, stage 4 (severe); Q27.33 Arteriovenous malformation of digestive system vessel; Z87.891 Personal history of nicotine dependence; E11.21 Type 2 diabetes mellitus with diabetic nephropathy; Z85.3 Personal history of malignant neoplasm of breast; E78.5 Hyperlipidemia, unspecified; D50.0 Iron deficiency anemia secondary to blood loss (chronic)
CPT/HCPCS: 36415; 76937; 80048; 85025; 85347; 85610; 85730; 99156; 99157; A9270-GY; C1725; C1760; C1769; C1887; C1894; J1644; J2250; J3010

== ENCOUNTER 2020-01-17 05:08 | Inpatient (IN) ==
[2020-01-17] MEDS ORDERED: Nitro 2% OINT (Nitroglycerin) 1 INCH/PAK TOPICAL ONE (05:24)
[2020-01-17] MEDS ORDERED: Furosemide 40 mg/4 ml IV VIAL IV ONE (05:24)
[2020-01-17 05:38] LABS: Hematocrit 22 % (35-47); Mean Corpuscular HGB Conc 32 g/dL (31-36); Mean Corpuscular Hemoglobin 28 pg (27-31); Mean Corpuscular Volume 90 fL (80-97); Mean Platelet Volume 7.9 fL (7.4-10.4); Platelet Count 560 10^3/uL (150-450); Red Blood Count 2.45 10^6 /uL (3.70-4.87); Red Cell Distribution Width 18 % (10-15); White Blood Count 18.2 10^3/uL (3.5-10.8)
[2020-01-17 05:50] LABS: ALT 22 U/L (7-52); AST 45 U/L (13-39); Albumin 3.2 g/dL (3.2-5.2); Albumin/Globulin Ratio 0.9 (1-3); Alkaline Phosphatase 115 U/L (34-104); BUN/Creatinine Ratio 8.1 (8-20); Blood Urea Nitrogen 72 mg/dL (6-24); CO2 Carbon Dioxide 18 mmol/L (22-32); Chloride 108 mmol/L (101-111); EGFR African American 5.4 (>60); EGFR Non-African American 4.4 (>60); Globulin 3.7 g/dL (2-4); Glucose 151 mg/dL (70-100); Sodium 140 mmol/L (135-145); Total Protein 6.9 g/dL (6.4-8.9)
[2020-01-17 05:57] LABS: Anion Gap 14 mmol/L (2-11); Potassium 5.9 mmol/L (3.5-5.0); Troponin I 1.85 ng/mL (<0.03)
[2020-01-17 06:07] LABS: ABS Basophils 0.2 10^3/ul (0-0.2); ABS Eosinophils 0.1 10^3/ul (0-0.6); ABS Lymphocytes 5.7 10^3/ul (1.0-4.8); Eosinophil % 0.8 %; Lymphocyte % 31.6 %; Nucleated Red Blood Cells % 0.1
[2020-01-17] MEDS ORDERED: Furosemide 100 mg/10 ml IV 100 MG in NS 0.9% 100 ml BAG 90 ML IV SCH (06:30)
[2020-01-17 06:31] LABS: Urine Appearance Cloudy; Urine Bilirubin Negative (Negative); Urine Blood 1+ (Negative); Urine Color Yellow; Urine Glucose Negative (Negative); Urine Ketones Negative (Negative); Urine Nitrite Negative (Negative); Urine Protein 2+(100 mg/dL) (Negative); Urine Specific Gravity 1.013 (1.010-1.030); Urine Urobilinogen Negative (Negative)
[2020-01-17 06:33] LABS: Urine Bacteria Absent (Absent); Urine Red Blood Cell Trace(0-2/hpf) (Absent); Urine Squamous Epithelial Cell Present (Absent); Urine White Blood Cell Absent (Absent)
[2020-01-17] MEDS: Furosemide 100 mg/10 ml IV 100 MG in NS 0.9% 100 ml BAG 90 ML IV SCH ×5 (06:38→23:26)
[2020-01-17] MEDS ORDERED: LORazepam 1 mg TAB (*) PO PRN (08:45)
[2020-01-17] MEDS ORDERED: oxyCODONE/Acetamin 5/325 mg TAB PO PRN (08:45)
[2020-01-17] MEDS ORDERED: Dextrose 50% Syringe 50 ml 25 GM/50 ML SYRINGE IV PUSH PRN (09:01)
[2020-01-17] MEDS ORDERED: fentaNYL 100 mcg/2 ml 50 MCG/ML VIAL IV SLOW PU ONE (09:54)
[2020-01-17] MEDS ORDERED: Lorazepam PYXIS KEY ONE (10:00)
[2020-01-17] MEDS ORDERED: LORazepam 2 mg VIAL 1 ml ONE (10:00)
[2020-01-17] MEDS ORDERED: Lidocaine 1% VIAL 10 MG/ML VIAL ONE (10:04)
[2020-01-17] MEDS: nitroGLYCERIN DRIP 25,000 MCG/250 ML BTL IV SCH (10:47)
[2020-01-17] MEDS: lamoTRIgine 25 mg TAB (*) PO SCH ×2 (11:00→11:06)
[2020-01-17] MEDS: Labetalol 300 mg TAB PO SCH ×3 (11:00→21:15)
[2020-01-17] MEDS: Fluticasone NASAL SPRAY 50MCG 16 gm SPRAY BTL INTRANASAL SCH (11:05)
[2020-01-17] MEDS: Insulin LISPRO 100 units/ml(*) SUBCUT SCH ×4 (12:57→23:27)
[2020-01-17 13:51] LABS: Troponin I 1.48 ng/mL (<0.03)
[2020-01-17] MEDS ORDERED: LORazepam 2 mg VIAL 1 ml IV PUSH ONE (14:00)
[2020-01-17] MEDS ORDERED: fentaNYL 100 mcg/2 ml 50 MCG/ML VIAL IV SLOW PU PRN ×2 (15:02→18:28)
[2020-01-17] MEDS: fentaNYL 100 mcg/2 ml 50 MCG/ML VIAL IV SLOW PU PRN ×2 (15:30→15:46)
[2020-01-17] MEDS ORDERED: fentaNYL 100 mcg/2 ml 50 MCG/ML VIAL ONE (15:43)
[2020-01-17 15:52] LABS: Hepatitis B Surface Antigen Nonreactive (Nonreactive)
[2020-01-17] MEDS ORDERED: Pantoprazole VIAL 40 MG VIAL IV SCH (16:00)
[2020-01-17 16:09] LABS: Hepatitis B Surface Ab Not Immune (Immune)
[2020-01-17] MEDS: Heparin DIALYSIS ONLY(*) 1,000 UNITS/ML VIAL ONE (16:45)
[2020-01-17] MEDS ORDERED: Acetaminophen IV 1 GM/100ML 100 ML ONE (17:06)
[2020-01-17] MEDS: Acetaminophen IV 1 GM/100ML 100 ML IVPB SCH (17:40)
[2020-01-17 18:19] LABS: Hematocrit 20 % (35-47); Hemoglobin 6.3 g/dL (12.0-16.0); Mean Corpuscular HGB Conc 32 g/dL (31-36); Mean Corpuscular Hemoglobin 28 pg (27-31); Mean Corpuscular Volume 88 fL (80-97); Mean Platelet Volume 7.6 fL (7.4-10.4); Platelet Count 447 10^3/uL (150-450); Red Blood Count 2.23 10^6 /uL (3.70-4.87); Red Cell Distribution Width 17 % (10-15); White Blood Count 15.9 10^3/uL (3.5-10.8)
[2020-01-17] MEDS ORDERED: HYDROmorphone 1 MG/1 ML SYRINGE IV SLOW PU PRN (18:34)
[2020-01-17] MEDS ORDERED: HYDROmorphone 0.5 MG/0.5 ML SYRINGE ONE (18:39)
[2020-01-17] MEDS ORDERED: Ondansetron 4 mg VIAL 2 MG/ML 2 ml VIAL ONE ×2 (18:39→18:40)
[2020-01-17] MEDS: Ondansetron 4 mg VIAL 2 MG/ML 2 ml VIAL IV PRN ×2 (18:41→18:45)
[2020-01-17] MEDS: Isosorbide Mononit ER 30mg TAB PO SCH (19:31)
[2020-01-17] MEDS ORDERED: Prochlorperazine 5 mg/ml 2 ml VIAL (10 mg) IV PRN (20:40)
[2020-01-17] MEDS ORDERED: Lorazepam PYXIS KEY PRN (20:40)
[2020-01-17] MEDS: INSULIN ISOPHANE 100 UNIT/ML SUBCUT SCH (21:29)
[2020-01-17] MEDS ORDERED: HYDROmorphone 0.5 MG/0.5 ML SYRINGE IV SLOW PU PRN (22:03)
[2020-01-17] MEDS: HYDROmorphone 0.5 MG/0.5 ML SYRINGE IV SLOW PU PRN (23:55)
[2020-01-18] MEDS: Acetaminophen IV 1 GM/100ML 100 ML IVPB SCH ×2 (00:10→07:52)
[2020-01-18] MEDS: Furosemide 100 mg/10 ml IV 100 MG in NS 0.9% 100 ml BAG 90 ML IV SCH ×2 (00:15→06:39)
[2020-01-18] MEDS ORDERED: Magnesium Sulfate IV 1GM/100ML 1 GM/100 ML BAG IV ONE (01:00)
[2020-01-18] MEDS: LORazepam 2 mg VIAL 1 ml IV PUSH PRN (01:02)
[2020-01-18] MEDS: nitroGLYCERIN DRIP 25,000 MCG/250 ML BTL IV SCH ×3 (01:32→07:53)
[2020-01-18 04:34] LABS: Hematocrit 20 % (35-47); Hemoglobin 6.7 g/dL (12.0-16.0); Mean Corpuscular HGB Conc 34 g/dL (31-36); Mean Corpuscular Hemoglobin 29 pg (27-31); Mean Corpuscular Volume 87 fL (80-97); Mean Platelet Volume 7.7 fL (7.4-10.4); Platelet Count 397 10^3/uL (150-450); Red Cell Distribution Width 16 % (10-15); White Blood Count 11.9 10^3/uL (3.5-10.8)
[2020-01-18 04:52] LABS: BUN/Creatinine Ratio 7.6 (8-20); Calcium 7.7 mg/dL (8.6-10.3); EGFR African American 9.6 (>60); EGFR Non-African American 7.9 (>60)
[2020-01-18 04:54] LABS: Potassium 4.6 mmol/L (3.5-5.0)
[2020-01-18] MEDS: Insulin LISPRO 100 units/ml(*) SUBCUT SCH ×5 (04:59→21:21)
[2020-01-18] MEDS: Labetalol 300 mg TAB PO SCH ×2 (07:47→21:23)
[2020-01-18] MEDS: Multivitamins/Minerals TAB PO SCH (07:47)
[2020-01-18] MEDS: Fluticasone NASAL SPRAY 50MCG 16 gm SPRAY BTL INTRANASAL SCH (07:52)
[2020-01-18] MEDS ORDERED: Heparin DIALYSIS ONLY(*) 1,000 UNITS/ML VIAL DIALYSIS ONE (11:22)
[2020-01-18] MEDS: HYDROmorphone 0.5 MG/0.5 ML SYRINGE IV SLOW PU PRN (16:08)
[2020-01-18] MEDS: Heparin DIALYSIS ONLY(*) 1,000 UNITS/ML VIAL ONE (17:43)
[2020-01-18] MEDS: Isosorbide Mononit ER 30mg TAB PO SCH (18:02)
[2020-01-18] MEDS: Aspirin EC 81 mg TAB.EC (enteric coated) PO SCH (18:02)
[2020-01-18] MEDS: INSULIN ISOPHANE 100 UNIT/ML SUBCUT SCH (21:21)
[2020-01-19 06:21] LABS: Hematocrit 24 % (35-47); Hemoglobin 8.3 g/dL (12.0-16.0); Mean Corpuscular HGB Conc 35 g/dL (31-36); Mean Corpuscular Hemoglobin 30 pg (27-31); Mean Corpuscular Volume 86 fL (80-97); Mean Platelet Volume 7.9 fL (7.4-10.4); Platelet Count 307 10^3/uL (150-450); Red Blood Count 2.77 10^6 /uL (3.70-4.87); Red Cell Distribution Width 16 % (10-15)
[2020-01-19 06:38] LABS: BUN/Creatinine Ratio 5.4 (8-20); Calcium 7.9 mg/dL (8.6-10.3); EGFR African American 14.8 (>60); EGFR Non-African American 12.2 (>60); HDL Cholesterol 34.8 mg/dL; Magnesium 1.7 mg/dL (1.9-2.7); Potassium 3.5 mmol/L (3.5-5.0)
[2020-01-19] MEDS: Insulin LISPRO 100 units/ml(*) SUBCUT SCH ×4 (07:58→22:52)
[2020-01-19] MEDS ORDERED: Magnesium Sulfate IV 1GM/100ML 1 GM/100 ML BAG IV ONE (09:46)
[2020-01-19] MEDS: Aspirin EC 81 mg TAB.EC (enteric coated) PO SCH (09:53)
[2020-01-19] MEDS: Multivitamins/Minerals TAB PO SCH (09:54)
[2020-01-19] MEDS: Labetalol 300 mg TAB PO SCH (09:54)
[2020-01-19] MEDS: lamoTRIgine 25 mg TAB (*) PO SCH (09:54)
[2020-01-19] MEDS: Fluticasone NASAL SPRAY 50MCG 16 gm SPRAY BTL INTRANASAL SCH (09:55)
[2020-01-19] MEDS ORDERED: Lactated Ringers 500 ml BAG 500 ML IV ONE ×2 (12:22→14:27)
[2020-01-19] MEDS ORDERED: Lactated Ringers 1000 ml BAG 500 ML IV ONE ×2 (13:00→15:00)
[2020-01-19 13:57] LABS: ABS Lymphocytes 1.2 10^3/ul (1.0-4.8); ABS Monocytes 0.8 10^3/ul (0-0.8); Eosinophil % 0.3 %; Hematocrit 26 % (35-47); Hemoglobin 8.5 g/dL (12.0-16.0); Lymphocyte % 17.1 %; Mean Corpuscular HGB Conc 32 g/dL (31-36); Mean Corpuscular Hemoglobin 30 pg (27-31); Mean Corpuscular Volume 93 fL (80-97); Mean Platelet Volume 8.1 fL (7.4-10.4); Nucleated Red Blood Cells % 0.2; Platelet Count 308 10^3/uL (150-450); Red Blood Count 2.82 10^6 /uL (3.70-4.87); Red Cell Distribution Width 17 % (10-15); White Blood Count 6.8 10^3/uL (3.5-10.8)
[2020-01-19 14:21] LABS: Troponin I 0.37 ng/mL (<0.03)
[2020-01-19] MEDS: INSULIN ISOPHANE 100 UNIT/ML SUBCUT SCH (23:03)
[2020-01-20] MEDS: HYDROmorphone 0.5 MG/0.5 ML SYRINGE IV SLOW PU PRN ×4 (02:33→22:28)
[2020-01-20] MEDS: LORazepam 2 mg VIAL 1 ml IV PUSH PRN (04:42)
[2020-01-20 07:25] LABS: ABS Basophils 0.1 10^3/ul (0-0.2); ABS Eosinophils 0.1 10^3/ul (0-0.6); ABS Lymphocytes 1.6 10^3/ul (1.0-4.8); Eosinophil % 0.9 %; Hematocrit 24 % (35-47); Hemoglobin 8.1 g/dL (12.0-16.0); Lymphocyte % 20.4 %; Mean Corpuscular HGB Conc 34 g/dL (31-36); Mean Corpuscular Hemoglobin 30 pg (27-31); Mean Corpuscular Volume 87 fL (80-97); Nucleated Red Blood Cells % 0.1; Platelet Count 323 10^3/uL (150-450); Red Blood Count 2.71 10^6 /uL (3.70-4.87); Red Cell Distribution Width 16 % (10-15)
[2020-01-20 07:45] LABS: BUN/Creatinine Ratio 5.2 (8-20); EGFR African American 9.5 (>60); EGFR Non-African American 7.9 (>60); Magnesium 2.1 mg/dL (1.9-2.7); Potassium 3.5 mmol/L (3.5-5.0)
[2020-01-20] MEDS: Insulin LISPRO 100 units/ml(*) SUBCUT SCH ×4 (08:08→22:11)
[2020-01-20] MEDS: Multivitamins/Minerals TAB PO SCH (09:29)
[2020-01-20] MEDS: Aspirin EC 81 mg TAB.EC (enteric coated) PO SCH (09:31)
[2020-01-20] MEDS ORDERED: Heparin DIALYSIS ONLY(*) 1,000 UNITS/ML VIAL DIALYSIS ONE (11:30)
[2020-01-20] MEDS: Fluticasone NASAL SPRAY 50MCG 16 gm SPRAY BTL INTRANASAL SCH (11:44)
[2020-01-20] MEDS ORDERED: Regadenoson 0.4 MG/5 ML SYRINGE ONE (13:59)
[2020-01-20] MEDS ORDERED: LORazepam 2 mg VIAL 1 ml ONE (14:20)
[2020-01-20] MEDS ORDERED: Lorazepam PYXIS KEY ONE (14:20)
[2020-01-20] MEDS ORDERED: HYDROmorphone 0.5 MG/0.5 ML SYRINGE IV SLOW PU ONE (16:21)
[2020-01-20] MEDS: INSULIN ISOPHANE 100 UNIT/ML SUBCUT SCH (22:18)
[2020-01-20] MEDS: Nitroglycerin 0.4 mg/hr PATCH (10 mg) TRANSDERM SCH (22:33)
[2020-01-21] MEDS: Nitro Patch/OINT Remove PATCH PATCH OFF SCH (06:03)
[2020-01-21 06:55] LABS: ABS Basophils 0.1 10^3/ul (0-0.2); ABS Eosinophils 0.1 10^3/ul (0-0.6); ABS Lymphocytes 1.1 10^3/ul (1.0-4.8); Eosinophil % 0.7 %; Hematocrit 28 % (35-47); Hemoglobin 9.7 g/dL (12.0-16.0); Lymphocyte % 13.1 %; Mean Corpuscular HGB Conc 35 g/dL (31-36); Mean Corpuscular Hemoglobin 30 pg (27-31); Mean Corpuscular Volume 87 fL (80-97); Mean Platelet Volume 8.2 fL (7.4-10.4); Platelet Count 325 10^3/uL (150-450); Red Blood Count 3.21 10^6 /uL (3.70-4.87); Red Cell Distribution Width 16 % (10-15); White Blood Count 8.3 10^3/uL (3.5-10.8)
[2020-01-21 07:15] LABS: BUN/Creatinine Ratio 5.3 (8-20); Calcium 7.8 mg/dL (8.6-10.3); EGFR Non-African American 10.8 (>60); Magnesium 1.8 mg/dL (1.9-2.7); Potassium 3.5 mmol/L (3.5-5.0)
[2020-01-21] MEDS ORDERED: Magnesium Sulfate IV 1GM/100ML 1 GM/100 ML BAG IV ONE (08:33)
[2020-01-21] MEDS: Insulin LISPRO 100 units/ml(*) SUBCUT SCH ×4 (09:18→22:29)
[2020-01-21] MEDS: Aspirin EC 81 mg TAB.EC (enteric coated) PO SCH (10:17)
[2020-01-21] MEDS: Multivitamins/Minerals TAB PO SCH (10:17)
[2020-01-21] MEDS: lamoTRIgine 25 mg TAB (*) PO SCH (10:42)
[2020-01-21] MEDS: Fluticasone NASAL SPRAY 50MCG 16 gm SPRAY BTL INTRANASAL SCH (10:59)
[2020-01-21] MEDS: INSULIN ISOPHANE 100 UNIT/ML SUBCUT SCH (22:29)
[2020-01-21] MEDS: Nitroglycerin 0.4 mg/hr PATCH (10 mg) TRANSDERM SCH (22:30)
[2020-01-22] MEDS: HYDROmorphone 0.5 MG/0.5 ML SYRINGE IV SLOW PU PRN ×4 (03:56→23:51)
[2020-01-22] MEDS: Nitro Patch/OINT Remove PATCH PATCH OFF SCH (06:06)
[2020-01-22] MEDS: Multivitamins/Minerals TAB PO SCH (09:36)
[2020-01-22] MEDS: Insulin LISPRO 100 units/ml(*) SUBCUT SCH ×4 (09:40→21:39)
[2020-01-22] MEDS: Fluticasone NASAL SPRAY 50MCG 16 gm SPRAY BTL INTRANASAL SCH (09:42)
[2020-01-22] MEDS: INSULIN ISOPHANE 100 UNIT/ML SUBCUT SCH (21:39)
[2020-01-22] MEDS: Nitroglycerin 0.4 mg/hr PATCH (10 mg) TRANSDERM SCH (21:45)
[2020-01-23] MEDS: HYDROmorphone 0.5 MG/0.5 ML SYRINGE IV SLOW PU PRN ×6 (02:49→23:50)
[2020-01-23] MEDS: Nitro Patch/OINT Remove PATCH PATCH OFF SCH (06:00)
[2020-01-23] MEDS: Insulin LISPRO 100 units/ml(*) SUBCUT SCH ×4 (07:34→21:36)
[2020-01-23] MEDS: Multivitamins/Minerals TAB PO SCH (07:42)
[2020-01-23] MEDS: lamoTRIgine 25 mg TAB (*) PO SCH (07:42)
[2020-01-23] MEDS: Fluticasone NASAL SPRAY 50MCG 16 gm SPRAY BTL INTRANASAL SCH (07:44)
[2020-01-23] MEDS: LORazepam 2 mg VIAL 1 ml IV PUSH PRN (08:22)
[2020-01-23 09:09] LABS: Albumin 2.9 g/dL (3.2-5.2); CO2 Carbon Dioxide 17 mmol/L (22-32); Calcium 8.1 mg/dL (8.6-10.3); Chloride 101 mmol/L (101-111); Sodium 129 mmol/L (135-145)
[2020-01-23 09:15] LABS: ALT 18 U/L (7-52); Albumin/Globulin Ratio 0.9 (1-3); Alkaline Phosphatase 93 U/L (34-104); BUN/Creatinine Ratio 7.1 (8-20); Blood Urea Nitrogen 47 mg/dL (6-24); EGFR African American 7.5 (>60); EGFR Non-African American 6.2 (>60); Globulin 3.1 g/dL (2-4); Glucose 127 mg/dL (70-100)
[2020-01-23 09:22] LABS: Anion Gap 11 mmol/L (2-11)
[2020-01-23 09:56] LABS: ABS Eosinophils 0.1 10^3/ul (0-0.6); ABS Lymphocytes 1.2 10^3/ul (1.0-4.8); ABS Monocytes 1.3 10^3/ul (0-0.8); Hematocrit 27 % (35-47); Hemoglobin 9.3 g/dL (12.0-16.0); Lymphocyte % 12.4 %; Mean Corpuscular HGB Conc 34 g/dL (31-36); Mean Corpuscular Hemoglobin 30 pg (27-31); Mean Corpuscular Volume 88 fL (80-97); Mean Platelet Volume 8.3 fL (7.4-10.4); Platelet Count 337 10^3/uL (150-450); Red Blood Count 3.11 10^6 /uL (3.70-4.87); Red Cell Distribution Width 16 % (10-15); White Blood Count 10.1 10^3/uL (3.5-10.8)
[2020-01-23 10:20] LABS: Potassium Redraw 4.6 mmol/L (3.5-5.0)
[2020-01-23] MEDS: Heparin DIALYSIS ONLY(*) 1,000 UNITS/ML VIAL DIALYSIS ONE ×2 (17:46→19:32)
[2020-01-23] MEDS: Nitroglycerin 0.4 mg/hr PATCH (10 mg) TRANSDERM SCH (20:46)
[2020-01-23] MEDS ORDERED: INSULIN ISOPHANE 100 UNIT/ML SUBCUT SCH (21:00)
[2020-01-24] MEDS: HYDROmorphone 0.5 MG/0.5 ML SYRINGE IV SLOW PU PRN ×3 (03:17→10:22)
[2020-01-24] MEDS: Nitro Patch/OINT Remove PATCH PATCH OFF SCH (06:24)
[2020-01-24] MEDS: Multivitamins/Minerals TAB PO SCH (08:49)
[2020-01-24] MEDS: Insulin LISPRO 100 units/ml(*) SUBCUT SCH ×4 (08:56→21:01)
[2020-01-24] MEDS: Fluticasone NASAL SPRAY 50MCG 16 gm SPRAY BTL INTRANASAL SCH (09:06)
[2020-01-24] MEDS ORDERED: INSULIN ISOPHANE 100 UNIT/ML SUBCUT SCH (21:00)
[2020-01-24 21:51] LABS: C Reactive Protein 31.81 mg/L (<8.01)
[2020-01-24 22:04] LABS: Prealbumin 21 mg/dL (18-38)
[2020-01-25] MEDS ORDERED: Heparin DIALYSIS ONLY(*) 1,000 UNITS/ML VIAL DIALYSIS ONE (06:00)
[2020-01-25] MEDS: Insulin LISPRO 100 units/ml(*) SUBCUT SCH ×4 (08:52→21:08)
[2020-01-25] MEDS: Morphine ER 15 mg (*) ** extended release PO SCH ×2 (10:53→23:03)
[2020-01-25] MEDS: Fluticasone NASAL SPRAY 50MCG 16 gm SPRAY BTL INTRANASAL SCH (11:58)
[2020-01-25] MEDS: Multivitamins/Minerals TAB PO SCH (12:14)
[2020-01-25] MEDS: lamoTRIgine 25 mg TAB (*) PO SCH (12:14)
[2020-01-25] MEDS: INSULIN ISOPHANE 100 UNIT/ML SUBCUT SCH (21:08)
[2020-01-26 04:52] LABS: Hematocrit 25 % (35-47); Hemoglobin 8.6 g/dL (12.0-16.0); Mean Corpuscular HGB Conc 34 g/dL (31-36); Mean Corpuscular Hemoglobin 30 pg (27-31); Mean Corpuscular Volume 87 fL (80-97); Mean Platelet Volume 7.9 fL (7.4-10.4); Platelet Count 311 10^3/uL (150-450); Red Blood Count 2.88 10^6 /uL (3.70-4.87); Red Cell Distribution Width 16 % (10-15); White Blood Count 8.9 10^3/uL (3.5-10.8)
[2020-01-26 04:59] LABS: ABS Basophils 0.1 10^3/ul (0-0.2); ABS Eosinophils 0.1 10^3/ul (0-0.6); ABS Lymphocytes 1.4 10^3/ul (1.0-4.8); ABS Monocytes 1.6 10^3/ul (0-0.8); Eosinophil % 1.6 %; Lymphocyte % 15.6 %; Nucleated Red Blood Cells % 0.1
[2020-01-26 05:08] LABS: Calcium 8.5 mg/dL (8.6-10.3); EGFR Non-African American 9.1 (>60)
[2020-01-26 05:12] LABS: Potassium 5.1 mmol/L (3.5-5.0)
[2020-01-26] MEDS ORDERED: CLINDAMYCIN IVPB ONE (06:00)
[2020-01-26] MEDS ORDERED: NS 0.9% IVPB ONE (06:00)
[2020-01-26] MEDS ORDERED: Clindamycin 600 MG/NS BAG(*) 600 MG/50 ML BAG IV ONE ×2 (06:00)
[2020-01-26] MEDS: Insulin LISPRO 100 units/ml(*) SUBCUT SCH ×4 (07:13→20:36)
[2020-01-26] MEDS ORDERED: Lidocaine 1% VIAL 10 MG/ML VIAL ONE (08:18)
[2020-01-26] MEDS ORDERED: Heparin 2 UNITS/ML 1000 mls 1,000 ML IV ONE (08:19)
[2020-01-26] MEDS ORDERED: Heparin 5000 UNITS/ML VIAL(*) 1 ml vial ONE (08:24)
[2020-01-26] MEDS ORDERED: fentaNYL 100 mcg/2 ml 50 MCG/ML VIAL ONE (08:24)
[2020-01-26] MEDS ORDERED: Midazolam 5 mg/5 ml VIAL 1 mg/ml 5 ml VIAL (5 mg) ONE (08:24)
[2020-01-26] MEDS: Morphine ER 15 mg (*) ** extended release PO SCH ×2 (10:30→23:35)
[2020-01-26] MEDS: Fluticasone NASAL SPRAY 50MCG 16 gm SPRAY BTL INTRANASAL SCH (10:31)
[2020-01-26] MEDS: INSULIN ISOPHANE 100 UNIT/ML SUBCUT SCH ×2 (10:32→20:42)
[2020-01-26] MEDS: Multivitamins/Minerals TAB PO SCH (10:39)
[2020-01-27] MEDS ORDERED: Heparin DIALYSIS ONLY(*) 1,000 UNITS/ML VIAL DIALYSIS ONE (07:00)
[2020-01-27] MEDS: INSULIN ISOPHANE 100 UNIT/ML SUBCUT SCH (09:30)
[2020-01-27] MEDS: Insulin LISPRO 100 units/ml(*) SUBCUT SCH ×3 (10:01→17:14)
[2020-01-27] MEDS: lamoTRIgine 25 mg TAB (*) PO SCH (11:33)
[2020-01-27] MEDS: Multivitamins/Minerals TAB PO SCH (11:34)
[2020-01-27] MEDS: Fluticasone NASAL SPRAY 50MCG 16 gm SPRAY BTL INTRANASAL SCH (11:36)
[2020-01-27] MEDS: Morphine ER 15 mg (*) ** extended release PO SCH ×2 (12:25→22:50)
[2020-01-27] MEDS ORDERED: Mupirocin 2% OINT TUBE TOPICAL ONE (16:30)
[2020-01-27] MEDS ORDERED: Polyethylene Glycol 3350 17 GM PACKET PO PRN (16:47)
[2020-01-28] MEDS: INSULIN ISOPHANE 100 UNIT/ML SUBCUT SCH ×3 (00:01→23:07)
[2020-01-28] MEDS: Insulin LISPRO 100 units/ml(*) SUBCUT SCH ×5 (00:02→23:07)
[2020-01-28] MEDS ORDERED: Mupirocin 2% OINT TUBE TOPICAL ONE (09:00)
[2020-01-28] MEDS: Fluticasone NASAL SPRAY 50MCG 16 gm SPRAY BTL INTRANASAL SCH (09:12)
[2020-01-28] MEDS: Morphine ER 15 mg (*) ** extended release PO SCH ×2 (09:15→22:47)
[2020-01-28] MEDS: Multivitamins/Minerals TAB PO SCH (09:15)
[2020-01-28] MEDS: Senna TAB 8.6 mg TAB PO SCH (09:16)
[2020-01-29 07:03] LABS: BUN/Creatinine Ratio 6.8 (8-20); Calcium 9.3 mg/dL (8.6-10.3); EGFR African American 7.7 (>60); EGFR Non-African American 6.4 (>60); Magnesium 1.9 mg/dL (1.9-2.7)
[2020-01-29 07:29] LABS: Potassium 5.3 mmol/L (3.5-5.0)
[2020-01-29] MEDS: Insulin LISPRO 100 units/ml(*) SUBCUT SCH ×4 (10:05→22:15)
[2020-01-29] MEDS: INSULIN ISOPHANE 100 UNIT/ML SUBCUT SCH ×2 (10:17→22:15)
[2020-01-29] MEDS: Senna TAB 8.6 mg TAB PO SCH (10:18)
[2020-01-29] MEDS: Multivitamins/Minerals TAB PO SCH (10:19)
[2020-01-29] MEDS: lamoTRIgine 25 mg TAB (*) PO SCH (10:19)
[2020-01-29] MEDS: Fluticasone NASAL SPRAY 50MCG 16 gm SPRAY BTL INTRANASAL SCH (10:20)
[2020-01-29] MEDS: Morphine ER 15 mg (*) ** extended release PO SCH ×2 (11:06→23:02)
[2020-01-29] MEDS: Amoxicillin/Clavul 875/125 TAB (Augmentin 875 tab) PO SCH (19:55)
[2020-01-30] MEDS: Insulin LISPRO 100 units/ml(*) SUBCUT SCH ×4 (08:19→22:29)
[2020-01-30] MEDS: Amoxicillin/Clavul 875/125 TAB (Augmentin 875 tab) PO SCH ×2 (08:20→22:29)
[2020-01-30] MEDS: Senna TAB 8.6 mg TAB PO SCH (08:20)
[2020-01-30] MEDS: Multivitamins/Minerals TAB PO SCH (08:20)
[2020-01-30] MEDS: Fluticasone NASAL SPRAY 50MCG 16 gm SPRAY BTL INTRANASAL SCH (08:21)
[2020-01-30] MEDS: INSULIN ISOPHANE 100 UNIT/ML SUBCUT SCH ×2 (08:23→18:29)
[2020-01-30] MEDS ORDERED: Heparin DIALYSIS ONLY(*) 1,000 UNITS/ML VIAL DIALYSIS ONE ×2 (12:00)
[2020-01-30 13:55] LABS: ABS Basophils 0.1 10^3/ul (0-0.2); ABS Lymphocytes 1.2 10^3/ul (1.0-4.8); ABS Monocytes 1.5 10^3/ul (0-0.8); Eosinophil % 0.3 %; Hematocrit 26 % (35-47); Lymphocyte % 8.7 %; Mean Corpuscular HGB Conc 34 g/dL (31-36); Mean Corpuscular Hemoglobin 29 pg (27-31); Mean Corpuscular Volume 87 fL (80-97); Mean Platelet Volume 7.5 fL (7.4-10.4); Nucleated Red Blood Cells % 0.1; Platelet Count 406 10^3/uL (150-450); Red Blood Count 3.05 10^6 /uL (3.70-4.87); Red Cell Distribution Width 16 % (10-15); White Blood Count 14.1 10^3/uL (3.5-10.8)
[2020-01-30 14:22] LABS: Albumin 3.5 g/dL (3.2-5.2); Albumin/Globulin Ratio 0.8 (1-3); BUN/Creatinine Ratio 5.6 (8-20); Calcium 9.1 mg/dL (8.6-10.3); EGFR African American 19.7 (>60); EGFR Non-African American 16.3 (>60); Globulin 4.2 g/dL (2-4); Potassium 3.9 mmol/L (3.5-5.0); Total Bilirubin 0.3 mg/dL (0.2-1.0); Total Protein 7.7 g/dL (6.4-8.9)
[2020-01-30] MEDS ORDERED: Haloperidol 5 mg/ml SDV IV/IM 5 MG/ML AMP IV SLOW PU ONE (15:14)
[2020-01-30 15:39] LABS: C Reactive Protein 94.79 mg/L (<8.01)
[2020-01-31] MEDS ORDERED: hydrALAZINE 20 mg/ml 1 ML Vial IV IV SLOW PU ONE (00:50)
[2020-01-31] MEDS ORDERED: Labetalol IV 5 MG/ML 20 ml VIAL IV PUSH ONE (01:02)
[2020-01-31] MEDS ORDERED: Haloperidol 5 mg/ml SDV IV/IM 5 MG/ML AMP IV SLOW PU ONE (02:02)
[2020-01-31] MEDS: Insulin LISPRO 100 units/ml(*) SUBCUT SCH ×4 (09:00→21:34)
[2020-01-31] MEDS ORDERED: Morphine ER 15 mg (*) ** extended release PO SCH (09:00)
[2020-01-31] MEDS: INSULIN ISOPHANE 100 UNIT/ML SUBCUT SCH ×2 (09:01→17:46)
[2020-01-31] MEDS: Multivitamins/Minerals TAB PO SCH (09:01)
[2020-01-31] MEDS: lamoTRIgine 25 mg TAB (*) PO SCH (09:02)
[2020-01-31] MEDS: Senna TAB 8.6 mg TAB PO SCH (09:02)
[2020-01-31] MEDS: Amoxicillin/Clavul 875/125 TAB (Augmentin 875 tab) PO SCH ×2 (09:03→21:26)
[2020-01-31] MEDS: Fluticasone NASAL SPRAY 50MCG 16 gm SPRAY BTL INTRANASAL SCH (09:05)
[2020-01-31 09:17] LABS: ABS Basophils 0.1 10^3/ul (0-0.2); ABS Lymphocytes 0.9 10^3/ul (1.0-4.8); ABS Monocytes 1.1 10^3/ul (0-0.8); Eosinophil % 0.3 %; Hematocrit 27 % (35-47); Hemoglobin 8.8 g/dL (12.0-16.0); Lymphocyte % 7.3 %; Mean Corpuscular HGB Conc 33 g/dL (31-36); Mean Corpuscular Hemoglobin 29 pg (27-31); Mean Corpuscular Volume 86 fL (80-97); Mean Platelet Volume 7.3 fL (7.4-10.4); Platelet Count 409 10^3/uL (150-450); Red Blood Count 3.08 10^6 /uL (3.70-4.87); Red Cell Distribution Width 15 % (10-15); White Blood Count 12.6 10^3/uL (3.5-10.8)
[2020-01-31 09:34] LABS: BUN/Creatinine Ratio 6.6 (8-20); Calcium 9.3 mg/dL (8.6-10.3); EGFR African American 10.5 (>60); EGFR Non-African American 8.6 (>60); Potassium 4.7 mmol/L (3.5-5.0)
[2020-02-01] MEDS ORDERED: Heparin DIALYSIS ONLY(*) 1,000 UNITS/ML VIAL DIALYSIS ONE ×2 (07:00→11:00)
[2020-02-01] MEDS: Insulin LISPRO 100 units/ml(*) SUBCUT SCH ×4 (07:59→21:11)
[2020-02-01] MEDS: Fluticasone NASAL SPRAY 50MCG 16 gm SPRAY BTL INTRANASAL SCH (08:15)
[2020-02-01] MEDS: Multivitamins/Minerals TAB PO SCH (08:15)
[2020-02-01] MEDS: Amoxicillin/Clavul 875/125 TAB (Augmentin 875 tab) PO SCH ×2 (08:15→21:08)
[2020-02-01] MEDS: INSULIN ISOPHANE 100 UNIT/ML SUBCUT SCH ×2 (08:16→17:34)
[2020-02-01] MEDS: Senna TAB 8.6 mg TAB PO SCH (08:16)
[2020-02-02 06:08] LABS: ABS Basophils 0.1 10^3/ul (0-0.2); ABS Eosinophils 0.1 10^3/ul (0-0.6); ABS Lymphocytes 1.1 10^3/ul (1.0-4.8); Eosinophil % 0.9 %; Hematocrit 26 % (35-47); Hemoglobin 8.9 g/dL (12.0-16.0); Lymphocyte % 11.1 %; Mean Corpuscular HGB Conc 35 g/dL (31-36); Mean Corpuscular Hemoglobin 30 pg (27-31); Mean Corpuscular Volume 86 fL (80-97); Mean Platelet Volume 7.6 fL (7.4-10.4); Platelet Count 363 10^3/uL (150-450); Red Blood Count 2.97 10^6 /uL (3.70-4.87); Red Cell Distribution Width 15 % (10-15); White Blood Count 9.7 10^3/uL (3.5-10.8)
[2020-02-02] MEDS: Insulin LISPRO 100 units/ml(*) SUBCUT SCH ×4 (07:44→22:21)
[2020-02-02] MEDS: Fluticasone NASAL SPRAY 50MCG 16 gm SPRAY BTL INTRANASAL SCH (08:42)
[2020-02-02] MEDS: lamoTRIgine 25 mg TAB (*) PO SCH (08:43)
[2020-02-02] MEDS: Amoxicillin/Clavul 875/125 TAB (Augmentin 875 tab) PO SCH ×2 (08:43→22:27)
[2020-02-02] MEDS: Senna TAB 8.6 mg TAB PO SCH (08:43)
[2020-02-02] MEDS: Multivitamins/Minerals TAB PO SCH (08:44)
[2020-02-02] MEDS: INSULIN ISOPHANE 100 UNIT/ML SUBCUT SCH ×2 (08:44→17:20)
[2020-02-03] MEDS: Insulin LISPRO 100 units/ml(*) SUBCUT SCH ×4 (08:56→21:29)
[2020-02-03] MEDS: Senna TAB 8.6 mg TAB PO SCH (09:42)
[2020-02-03] MEDS: Amoxicillin/Clavul 875/125 TAB (Augmentin 875 tab) PO SCH ×2 (09:43→21:28)
[2020-02-03] MEDS: Multivitamins/Minerals TAB PO SCH (09:44)
[2020-02-03] MEDS: Fluticasone NASAL SPRAY 50MCG 16 gm SPRAY BTL INTRANASAL SCH (09:46)
[2020-02-03] MEDS: INSULIN ISOPHANE 100 UNIT/ML SUBCUT SCH ×2 (09:46→17:25)
[2020-02-03] MEDS ORDERED: Heparin DIALYSIS ONLY(*) 1,000 UNITS/ML VIAL DIALYSIS ONE (15:45)
[2020-02-03 16:30] LABS: Corrected Retic Count 0.8 % (0.5-1.5); Hematocrit 23 % (35-47); Hematocrit for Retic CNT 23 % (35-47); Hemoglobin 7.6 g/dL (12.0-16.0); Immature Retic Fraction 0.48; Mean Corpuscular HGB Conc 34 g/dL (31-36); Mean Corpuscular Hemoglobin 29 pg (27-31); Mean Corpuscular Volume 87 fL (80-97); Mean Platelet Volume 7.7 fL (7.4-10.4); Platelet Count 375 10^3/uL (150-450); RBC Retic Count 2.59 10^6/uL (3.70-4.87); Red Blood Count 2.59 10^6 /uL (3.70-4.87); Red Cell Distribution Width 15 % (10-15); White Blood Count 10.8 10^3/uL (3.5-10.8)
[2020-02-03 16:55] LABS: Anion Gap 10 mmol/L (2-11); BUN/Creatinine Ratio 6.1 (8-20); Blood Urea Nitrogen 41 mg/dL (6-24); C Reactive Protein 31.86 mg/L (<8.01); CO2 Carbon Dioxide 24 mmol/L (22-32); Calcium 8.4 mg/dL (8.6-10.3); Chloride 93 mmol/L (101-111); EGFR African American 7.3 (>60); EGFR Non-African American 6.1 (>60); Glucose 246 mg/dL (70-100); Phosphorus 4.1 mg/dL (2.5-5.0); Potassium 4.3 mmol/L (3.5-5.0); Sodium 127 mmol/L (135-145)
[2020-02-03 16:57] LABS: % Iron Saturation 11 % (15-55); Iron 25 ug/dL (50-212); Total Iron Binding Capacity 223 mcg/dL (250-450); Transferrin 159 mg/dL (203-362)
[2020-02-03 17:17] LABS: Ferritin 944.1 ng/mL (11-307)
[2020-02-03 17:20] LABS: Folate 18.16 ng/mL (>3.99)
[2020-02-04] MEDS ORDERED: LORazepam 0.5 mg TAB (*) PO ONE (01:28)
[2020-02-04] MEDS: Insulin LISPRO 100 units/ml(*) SUBCUT SCH ×4 (07:46→22:01)
[2020-02-04] MEDS: Amoxicillin/Clavul 875/125 TAB (Augmentin 875 tab) PO SCH ×2 (08:04→21:23)
[2020-02-04] MEDS: Multivitamins/Minerals TAB PO SCH (08:04)
[2020-02-04] MEDS: Calcium Carb 1250 mg TAB (500 mg elemental calcium) PO SCH (08:05)
[2020-02-04] MEDS: Fluticasone NASAL SPRAY 50MCG 16 gm SPRAY BTL INTRANASAL SCH (08:05)
[2020-02-04] MEDS: lamoTRIgine 25 mg TAB (*) PO SCH (08:05)
[2020-02-04] MEDS: Senna TAB 8.6 mg TAB PO SCH (08:05)
[2020-02-04] MEDS: INSULIN ISOPHANE 100 UNIT/ML SUBCUT SCH ×2 (09:28→17:17)
[2020-02-05] MEDS ORDERED: Morphine 2 MG/ML SYRINGE IV ONE (01:19)
[2020-02-05 06:49] LABS: ABS Basophils 0.1 10^3/ul (0-0.2); ABS Eosinophils 0.1 10^3/ul (0-0.6); ABS Lymphocytes 1.2 10^3/ul (1.0-4.8); Eosinophil % 0.8 %; Hematocrit 25 % (35-47); Hemoglobin 8.4 g/dL (12.0-16.0); Lymphocyte % 10.6 %; Mean Corpuscular HGB Conc 34 g/dL (31-36); Mean Corpuscular Hemoglobin 30 pg (27-31); Mean Corpuscular Volume 87 fL (80-97); Mean Platelet Volume 7.7 fL (7.4-10.4); Platelet Count 415 10^3/uL (150-450); Red Blood Count 2.83 10^6 /uL (3.70-4.87); Red Cell Distribution Width 16 % (10-15); White Blood Count 11.4 10^3/uL (3.5-10.8)
[2020-02-05] MEDS: INSULIN ISOPHANE 100 UNIT/ML SUBCUT SCH ×2 (08:22→17:13)
[2020-02-05] MEDS: Fluticasone NASAL SPRAY 50MCG 16 gm SPRAY BTL INTRANASAL SCH (08:22)
[2020-02-05] MEDS: Amoxicillin/Clavul 875/125 TAB (Augmentin 875 tab) PO SCH (08:23)
[2020-02-05] MEDS: Senna TAB 8.6 mg TAB PO SCH (08:23)
[2020-02-05] MEDS: Multivitamins/Minerals TAB PO SCH (08:23)
[2020-02-05] MEDS: Calcium Carb 1250 mg TAB (500 mg elemental calcium) PO SCH (08:23)
[2020-02-05] MEDS: Insulin LISPRO 100 units/ml(*) SUBCUT SCH ×4 (08:25→22:32)
[2020-02-06] MEDS: Multivitamins/Minerals TAB PO SCH (09:03)
[2020-02-06] MEDS: Senna TAB 8.6 mg TAB PO SCH (09:03)
[2020-02-06] MEDS: Insulin LISPRO 100 units/ml(*) SUBCUT SCH ×2 (09:04→12:28)
[2020-02-06] MEDS: Calcium Carb 1250 mg TAB (500 mg elemental calcium) PO SCH (09:04)
[2020-02-06] MEDS: lamoTRIgine 25 mg TAB (*) PO SCH (09:04)
[2020-02-06] MEDS: INSULIN ISOPHANE 100 UNIT/ML SUBCUT SCH (09:05)
[2020-02-06] MEDS: Fluticasone NASAL SPRAY 50MCG 16 gm SPRAY BTL INTRANASAL SCH (09:30)
[2020-02-06] MEDS: Heparin DIALYSIS ONLY(*) 1,000 UNITS/ML VIAL DIALYSIS ONE ×2 (10:47→15:09)
[2020-02-06] MEDS ORDERED: Iron Sucrose 200 MG in NS 0.9% 100 ml BAG 100 ML IVPB ONE (12:00)
[2020-02-06 12:54] VITALS: BP 140/63
== END 2020-02-06 16:15 | DRG 291 ==
LOC: ED 05:08 → ICU 07:39 → MEDTELE 01-18 09:28
PROVIDERS: ADMIT Internal Medicine; ATTEND Internal Medicine

== ENCOUNTER 2020-02-16 23:24 | Inpatient (IN) ==
[2020-02-17 01:38] LABS: Hematocrit 28 % (35-47); Hemoglobin 9.2 g/dL (12.0-16.0); Mean Corpuscular HGB Conc 34 g/dL (31-36); Mean Corpuscular Hemoglobin 29 pg (27-31); Mean Corpuscular Volume 87 fL (80-97); Red Blood Count 3.19 10^6 /uL (3.70-4.87); Red Cell Distribution Width 17 % (10-15)
[2020-02-17 02:07] LABS: ABS Basophils 0.2 10^3/ul (0-0.2); ABS Eosinophils 0.1 10^3/ul (0-0.6); ABS Lymphocytes 1.4 10^3/ul (1.0-4.8); ABS Neutrophils 17.8 10^3/ul (1.5-7.7); ABS Nucleated RBC 0.1 10^3/ul; Eosinophil % 0.2 %; Lymphocyte % 6.8 %; Mean Platelet Volume 8.2 fL (7.4-10.4); Nucleated Red Blood Cells % 0.3; Platelet Count 487 10^3/uL (150-450); White Blood Count 20.4 10^3/uL (3.5-10.8)
[2020-02-17 02:12] LABS: Calcium 9.1 mg/dL (8.6-10.3); Potassium 4.6 mmol/L (3.5-5.0)
[2020-02-17 02:18] LABS: BUN/Creatinine Ratio 5.9 (8-20); EGFR African American 6.4 (>60); EGFR Non-African American 5.3 (>60)
[2020-02-17] MEDS ORDERED: hydrALAZINE 20 mg/ml 1 ML Vial IV IV SLOW PU ONE ×2 (03:21→05:02)
[2020-02-17] MEDS ORDERED: Isosorbide Mononit ER 30mg TAB PO ONE ×2 (07:50→13:00)
[2020-02-17] MEDS ORDERED: Labetalol IV 5 MG/ML 20 ml VIAL IV PUSH PRN ×2 (08:10→13:02)
[2020-02-17] MEDS ORDERED: Polyethylene Glycol 3350 17 GM PACKET PO PRN (08:18)
[2020-02-17] MEDS: cefTRIAXone 1 gm/50 mL NS BAG 1 GM/50 ML BAG IVPB SCH (08:32)
[2020-02-17] MEDS ORDERED: Dextrose 50% Syringe 50 ml 25 GM/50 ML SYRINGE IV PUSH PRN (08:34)
[2020-02-17] MEDS: Calcium Carb 1250 mg TAB (500 mg elemental calcium) PO SCH (10:09)
[2020-02-17] MEDS: Insulin NPH 100 units/ml SUBCUT SCH ×2 (10:50→18:09)
[2020-02-17] MEDS: metroNIDAZOLE IV 500 MG/100ML 500 MG/100 ML BAG IVPB SCH ×2 (11:56→22:15)
[2020-02-17] MEDS: Fluticasone NASAL SPRAY 50MCG 16 gm SPRAY BTL INTRANASAL SCH (13:08)
[2020-02-17] MEDS: Heparin *DIALYSIS* ONLY 1,000 UNITS/ML VIAL DIALYSIS ONE ×4 (14:12→20:05)
[2020-02-17] MEDS ORDERED: IRON SUCROSE IVPB ONE (15:00)
[2020-02-17] MEDS ORDERED: NS 0.9% IVPB ONE (15:00)
[2020-02-17] MEDS: oxyCODONE/Acetamin 5/325 mg TAB PO PRN ×2 (15:09→18:05)
[2020-02-17] MEDS: Collagenase 250 units/gm OINT 1 tube TOPICAL SCH (23:00)
[2020-02-18] MEDS: oxyCODONE/Acetamin 5/325 mg TAB PO PRN ×3 (03:34→17:37)
[2020-02-18 04:21] LABS: ABS Lymphocytes 1.1 10^3/ul (1.0-4.8); ABS Monocytes 0.8 10^3/ul (0-0.8); ABS Neutrophils 6.6 10^3/ul (1.5-7.7); Hematocrit 23 % (35-47); Lymphocyte % 12.5 %; Mean Corpuscular HGB Conc 35 g/dL (31-36); Mean Corpuscular Hemoglobin 29 pg (27-31); Mean Corpuscular Volume 85 fL (80-97); Mean Platelet Volume 7.6 fL (7.4-10.4); Platelet Count 357 10^3/uL (150-450); Red Blood Count 2.74 10^6 /uL (3.70-4.87); Red Cell Distribution Width 16 % (10-15); White Blood Count 8.4 10^3/uL (3.5-10.8)
[2020-02-18 04:38] LABS: Albumin 2.9 g/dL (3.2-5.2); BUN/Creatinine Ratio 5.4 (8-20); Calcium 8.5 mg/dL (8.6-10.3); EGFR African American 11.8 (>60); EGFR Non-African American 9.8 (>60); Magnesium 1.6 mg/dL (1.9-2.7); Potassium 3.9 mmol/L (3.5-5.0); Total Bilirubin 0.3 mg/dL (0.2-1.0); Total Protein 5.9 g/dL (6.4-8.9)
[2020-02-18] MEDS ORDERED: Magnesium Sulfate IV 1GM/100ML 1 GM/100 ML BAG IV ONE (04:55)
[2020-02-18] MEDS ORDERED: IRON SUCROSE IVPB ONE (08:00)
[2020-02-18] MEDS ORDERED: NS 0.9% IVPB ONE (08:00)
[2020-02-18] MEDS: Calcium Carb 1250 mg TAB (500 mg elemental calcium) PO SCH (08:42)
[2020-02-18] MEDS: Insulin NPH 100 units/ml SUBCUT SCH ×2 (08:54→17:34)
[2020-02-18] MEDS: Heparin *DIALYSIS* ONLY 1,000 UNITS/ML VIAL DIALYSIS ONE ×5 (09:47→16:51)
[2020-02-18] MEDS: cefTRIAXone 1 gm/50 mL NS BAG 1 GM/50 ML BAG IVPB SCH (12:54)
[2020-02-18] MEDS: Collagenase 250 units/gm OINT 1 tube TOPICAL SCH (17:45)
[2020-02-18] MEDS: Fluticasone NASAL SPRAY 50MCG 16 gm SPRAY BTL INTRANASAL SCH (17:45)
[2020-02-18] MEDS ORDERED: Haloperidol 5 mg/ml SDV IV/IM 5 MG/ML AMP IM PRN (18:38)
[2020-02-18 18:56] LABS: C Reactive Protein 14.58 mg/L (<8.01)
[2020-02-18] MEDS ORDERED: Lorazepam PYXIS KEY PRN (22:51)
[2020-02-18] MEDS ORDERED: LORazepam 2 mg VIAL 1 ml IV PUSH ONE (22:52)
[2020-02-18] MEDS: metroNIDAZOLE IV 500 MG/100ML 500 MG/100 ML BAG IVPB SCH (22:56)
[2020-02-19] MEDS: oxyCODONE/Acetamin 5/325 mg TAB PO PRN ×3 (01:00→20:54)
[2020-02-19] MEDS: metroNIDAZOLE IV 500 MG/100ML 500 MG/100 ML BAG IVPB SCH ×3 (04:00→17:09)
[2020-02-19] MEDS ORDERED: HYDROmorphone 0.5 MG/0.5 ML SYRINGE IV SLOW PU ONE (04:17)
[2020-02-19 06:47] LABS: ABS Basophils 0.1 10^3/ul (0-0.2); ABS Lymphocytes 1.5 10^3/ul (1.0-4.8); ABS Monocytes 1.2 10^3/ul (0-0.8); ABS Neutrophils 5.7 10^3/ul (1.5-7.7); Eosinophil % 0.4 %; Hematocrit 23 % (35-47); Hemoglobin 7.8 g/dL (12.0-16.0); Lymphocyte % 17.3 %; Mean Corpuscular HGB Conc 34 g/dL (31-36); Mean Corpuscular Hemoglobin 29 pg (27-31); Mean Corpuscular Volume 86 fL (80-97); Mean Platelet Volume 7.7 fL (7.4-10.4); Nucleated Red Blood Cells % 0.1; Platelet Count 352 10^3/uL (150-450); Red Blood Count 2.68 10^6 /uL (3.70-4.87); Red Cell Distribution Width 16 % (10-15); White Blood Count 8.5 10^3/uL (3.5-10.8)
[2020-02-19 06:58] LABS: BUN/Creatinine Ratio 3.7 (8-20); Calcium 8.5 mg/dL (8.6-10.3); EGFR African American 14.4 (>60); EGFR Non-African American 11.9 (>60); Potassium 3.4 mmol/L (3.5-5.0)
[2020-02-19] MEDS: cefTRIAXone 1 gm/50 mL NS BAG 1 GM/50 ML BAG IVPB SCH (08:04)
[2020-02-19] MEDS: Calcium Carb 1250 mg TAB (500 mg elemental calcium) PO SCH (08:04)
[2020-02-19] MEDS: Fluticasone NASAL SPRAY 50MCG 16 gm SPRAY BTL INTRANASAL SCH (08:21)
[2020-02-19] MEDS: Collagenase 250 units/gm OINT 1 tube TOPICAL SCH (08:27)
[2020-02-19] MEDS: Insulin NPH 100 units/ml SUBCUT SCH ×2 (08:35→17:09)
[2020-02-19 11:51] LABS: Hepatitis B Surface Antigen Nonreactive (Nonreactive)
[2020-02-19 21:26] LABS: Hepatitis B Surface Ab Indeterminate (Immune)
[2020-02-20] MEDS: metroNIDAZOLE IV 500 MG/100ML 500 MG/100 ML BAG IVPB SCH ×2 (05:13→18:27)
[2020-02-20] MEDS: Heparin *DIALYSIS* ONLY 1,000 UNITS/ML VIAL DIALYSIS ONE ×4 (06:40→10:40)
[2020-02-20] MEDS: oxyCODONE/Acetamin 5/325 mg TAB PO PRN ×2 (06:59→14:44)
[2020-02-20] MEDS: NS 0.9% IVPB SCH (09:29)
[2020-02-20] MEDS: IRON SUCROSE IVPB SCH (09:29)
[2020-02-20] MEDS ORDERED: Potassium Chlor 20 meq TAB.ER PO ONE (10:59)
[2020-02-20] MEDS: cefTRIAXone 1 gm/50 mL NS BAG 1 GM/50 ML BAG IVPB SCH (13:08)
[2020-02-20] MEDS: Collagenase 250 units/gm OINT 1 tube TOPICAL SCH (13:11)
[2020-02-20] MEDS: Fluticasone NASAL SPRAY 50MCG 16 gm SPRAY BTL INTRANASAL SCH (13:11)
[2020-02-20] MEDS: Insulin NPH 100 units/ml SUBCUT SCH ×2 (13:11→18:00)
[2020-02-20] MEDS: Calcium Carb 1250 mg TAB (500 mg elemental calcium) PO SCH (13:11)
[2020-02-20] MEDS: HYDROmorphone 0.5 MG/0.5 ML SYRINGE IV PRN (19:26)
[2020-02-21] MEDS: HYDROmorphone 0.5 MG/0.5 ML SYRINGE IV PRN ×3 (03:05→22:50)
[2020-02-21] MEDS: metroNIDAZOLE IV 500 MG/100ML 500 MG/100 ML BAG IVPB SCH ×2 (05:18→17:02)
[2020-02-21 06:17] LABS: BUN/Creatinine Ratio 4.1 (8-20); EGFR African American 12.8 (>60); EGFR Non-African American 10.6 (>60)
[2020-02-21] MEDS: cefTRIAXone 1 gm/50 mL NS BAG 1 GM/50 ML BAG IVPB SCH (07:37)
[2020-02-21] MEDS: Insulin NPH 100 units/ml SUBCUT SCH ×2 (08:11→17:02)
[2020-02-21] MEDS: oxyCODONE/Acetamin 5/325 mg TAB PO PRN ×2 (08:12→17:01)
[2020-02-21] MEDS: Calcium Carb 1250 mg TAB (500 mg elemental calcium) PO SCH (08:13)
[2020-02-21] MEDS: Fluticasone NASAL SPRAY 50MCG 16 gm SPRAY BTL INTRANASAL SCH (08:13)
[2020-02-21] MEDS: Collagenase 250 units/gm OINT 1 tube TOPICAL SCH (08:13)
[2020-02-22] MEDS: oxyCODONE/Acetamin 5/325 mg TAB PO PRN ×2 (00:33→09:19)
[2020-02-22] MEDS: HYDROmorphone 0.5 MG/0.5 ML SYRINGE IV PRN ×2 (07:22→22:36)
[2020-02-22] MEDS: Heparin *DIALYSIS* ONLY 1,000 UNITS/ML VIAL DIALYSIS ONE ×3 (07:55→10:14)
[2020-02-22] MEDS ORDERED: IRON SUCROSE IVPB ONE (08:00)
[2020-02-22] MEDS ORDERED: NS 0.9% IVPB ONE (08:00)
[2020-02-22] MEDS: NS 0.9% IVPB SCH (10:40)
[2020-02-22] MEDS: IRON SUCROSE IVPB SCH (10:40)
[2020-02-22] MEDS: Calcium Carb 1250 mg TAB (500 mg elemental calcium) PO SCH (12:36)
[2020-02-22] MEDS: Fluticasone NASAL SPRAY 50MCG 16 gm SPRAY BTL INTRANASAL SCH (12:38)
[2020-02-22] MEDS: Collagenase 250 units/gm OINT 1 tube TOPICAL SCH (12:39)
[2020-02-22] MEDS: Insulin NPH 100 units/ml SUBCUT SCH ×2 (12:39→17:13)
[2020-02-23] MEDS: oxyCODONE/Acetamin 5/325 mg TAB PO PRN ×2 (00:04→09:14)
[2020-02-23] MEDS: Fluticasone NASAL SPRAY 50MCG 16 gm SPRAY BTL INTRANASAL SCH (09:10)
[2020-02-23] MEDS: Insulin NPH 100 units/ml SUBCUT SCH (09:14)
[2020-02-23] MEDS: Calcium Carb 1250 mg TAB (500 mg elemental calcium) PO SCH (09:14)
[2020-02-23] MEDS: Collagenase 250 units/gm OINT 1 tube TOPICAL SCH (09:18)
[2020-02-23] MEDS: HYDROmorphone 0.5 MG/0.5 ML SYRINGE IV PRN (10:22)
[2020-02-23 11:22] VITALS: BP 102/49
== END 2020-02-23 14:17 | disposition swing bed (61) | DRG 70 ==
LOC: ED 23:24 → MEDTELE 02-17 08:06
PROVIDERS: ADMIT Internal Medicine; ATTEND Hospitalist

== ENCOUNTER 2020-02-23 14:18 | Inpatient (IN) ==
[2020-02-23] MEDS ORDERED: LORazepam 1 mg TAB (*) PO PRN (15:29)
[2020-02-23] MEDS ORDERED: Dextrose 50% Syringe 50 ml 25 GM/50 ML SYRINGE IV PUSH PRN ×2 (15:29→15:49)
[2020-02-23] MEDS ORDERED: Haloperidol 5 mg/ml SDV IV/IM 5 MG/ML AMP IM PRN (15:30)
[2020-02-23] MEDS ORDERED: HYDROmorphone 0.5 MG/0.5 ML SYRINGE IV PRN (15:30)
[2020-02-23] MEDS ORDERED: Polyethylene Glycol 3350 17 GM PACKET PO PRN (15:31)
[2020-02-23] MEDS: Insulin LISPRO 100 units/ml(*) SUBCUT SCH ×2 (17:10→21:33)
[2020-02-23] MEDS: INSULIN ISOPHANE 100 UNIT/ML SUBCUT SCH (17:11)
[2020-02-23] MEDS: oxyCODONE/Acetamin 5/325 mg TAB PO PRN (17:12)
[2020-02-24] MEDS: oxyCODONE/Acetamin 5/325 mg TAB PO PRN ×3 (02:34→16:29)
[2020-02-24] MEDS: Calcium Carb 1250 mg TAB (500 mg elemental calcium) PO SCH (08:03)
[2020-02-24] MEDS: Insulin LISPRO 100 units/ml(*) SUBCUT SCH ×4 (08:03→21:43)
[2020-02-24] MEDS: CALCITRIOL 0.25 MG PO SCH (08:04)
[2020-02-24] MEDS: Fluticasone NASAL SPRAY 50MCG 16 gm SPRAY BTL INTRANASAL SCH (08:06)
[2020-02-24] MEDS: Collagenase 250 units/gm OINT 1 tube TOPICAL SCH (08:08)
[2020-02-24] MEDS: Iron Sucrose 200 MG in NS 0.9% 100 ml BAG 100 ML IVPB SCH (08:23)
[2020-02-24] MEDS: INSULIN ISOPHANE 100 UNIT/ML SUBCUT SCH ×2 (09:31→16:31)
[2020-02-24] MEDS ORDERED: NS 0.9% IVPB ONE (15:00)
[2020-02-24] MEDS ORDERED: IRON SUCROSE IVPB ONE (15:00)
[2020-02-24] MEDS: Heparin DIALYSIS ONLY(*) 1,000 UNITS/ML VIAL DIALYSIS ONE ×5 (15:22→21:06)
[2020-02-25] MEDS: oxyCODONE/Acetamin 5/325 mg TAB PO PRN ×3 (03:22→21:45)
[2020-02-25] MEDS: Fluticasone NASAL SPRAY 50MCG 16 gm SPRAY BTL INTRANASAL SCH (08:28)
[2020-02-25] MEDS: INSULIN ISOPHANE 100 UNIT/ML SUBCUT SCH ×2 (08:29→17:19)
[2020-02-25] MEDS: Insulin LISPRO 100 units/ml(*) SUBCUT SCH ×4 (08:29→21:44)
[2020-02-25] MEDS: CALCITRIOL 0.25 MG PO SCH (08:30)
[2020-02-25] MEDS: lamoTRIgine 25 mg TAB (*) PO SCH (08:31)
[2020-02-25] MEDS: Calcium Carb 1250 mg TAB (500 mg elemental calcium) PO SCH (08:31)
[2020-02-25] MEDS: Collagenase 250 units/gm OINT 1 tube TOPICAL SCH (08:34)
[2020-02-26] MEDS: oxyCODONE/Acetamin 5/325 mg TAB PO PRN (04:42)
[2020-02-26] MEDS: Fluticasone NASAL SPRAY 50MCG 16 gm SPRAY BTL INTRANASAL SCH (07:21)
[2020-02-26] MEDS: CALCITRIOL 0.25 MG PO SCH (07:22)
[2020-02-26] MEDS: Calcium Carb 1250 mg TAB (500 mg elemental calcium) PO SCH (07:22)
[2020-02-26] MEDS: INSULIN ISOPHANE 100 UNIT/ML SUBCUT SCH ×2 (07:35→17:14)
[2020-02-26] MEDS: Insulin LISPRO 100 units/ml(*) SUBCUT SCH ×4 (07:36→20:12)
[2020-02-26] MEDS: Collagenase 250 units/gm OINT 1 tube TOPICAL SCH (07:40)
[2020-02-26] MEDS: oxyCODONE SR 10 mg TAB (*) PO SCH ×2 (09:28→19:58)
[2020-02-27] MEDS: oxyCODONE/Acetamin 5/325 mg TAB PO PRN (01:01)
[2020-02-27] MEDS ORDERED: Albumin Human 25% 25 GM/100 ML BTL IV PRN (06:15)
[2020-02-27] MEDS ORDERED: Albumin Human 25% 12.5 GM/50 ML BTL IV PRN (06:19)
[2020-02-27] MEDS: Fluticasone NASAL SPRAY 50MCG 16 gm SPRAY BTL INTRANASAL SCH (07:24)
[2020-02-27] MEDS: Collagenase 250 units/gm OINT 1 tube TOPICAL SCH (07:24)
[2020-02-27] MEDS ORDERED: IRON SUCROSE IVPB ONE (08:00)
[2020-02-27] MEDS ORDERED: NS 0.9% IVPB ONE (08:00)
[2020-02-27] MEDS: Insulin LISPRO 100 units/ml(*) SUBCUT SCH ×4 (08:03→19:59)
[2020-02-27] MEDS: Heparin DIALYSIS ONLY(*) 1,000 UNITS/ML VIAL DIALYSIS ONE ×4 (08:43→12:40)
[2020-02-27] MEDS: oxyCODONE SR 10 mg TAB (*) PO SCH ×2 (09:44→19:58)
[2020-02-27] MEDS: Iron Sucrose 200 MG in NS 0.9% 100 ml BAG 100 ML IVPB SCH (09:44)
[2020-02-27] MEDS: INSULIN ISOPHANE 100 UNIT/ML SUBCUT SCH ×2 (13:13→17:20)
[2020-02-27] MEDS: lamoTRIgine 25 mg TAB (*) PO SCH (13:14)
[2020-02-27] MEDS: CALCITRIOL 0.25 MG PO SCH (13:14)
[2020-02-27] MEDS: Calcium Carb 1250 mg TAB (500 mg elemental calcium) PO SCH (13:14)
[2020-02-28] MEDS ORDERED: Alteplase (CATHFLO) 2 MG VIAL IV ONE (07:00)
[2020-02-28] MEDS: Insulin LISPRO 100 units/ml(*) SUBCUT SCH ×4 (07:33→20:07)
[2020-02-28] MEDS: CALCITRIOL 0.25 MG PO SCH (10:08)
[2020-02-28] MEDS: oxyCODONE SR 10 mg TAB (*) PO SCH ×2 (10:08→20:05)
[2020-02-28] MEDS: Calcium Carb 1250 mg TAB (500 mg elemental calcium) PO SCH (10:12)
[2020-02-28] MEDS: Fluticasone NASAL SPRAY 50MCG 16 gm SPRAY BTL INTRANASAL SCH (10:13)
[2020-02-28] MEDS: Collagenase 250 units/gm OINT 1 tube TOPICAL SCH (10:13)
[2020-02-28] MEDS: INSULIN ISOPHANE 100 UNIT/ML SUBCUT SCH ×2 (10:26→16:44)
[2020-02-29] MEDS: Heparin DIALYSIS ONLY(*) 1,000 UNITS/ML VIAL DIALYSIS ONE ×4 (08:14→12:57)
[2020-02-29] MEDS: Iron Sucrose 200 MG in NS 0.9% 100 ml BAG 100 ML IVPB SCH (09:27)
[2020-02-29] MEDS: INSULIN ISOPHANE 100 UNIT/ML SUBCUT SCH ×2 (09:31→17:43)
[2020-02-29] MEDS: Insulin LISPRO 100 units/ml(*) SUBCUT SCH ×4 (09:31→21:20)
[2020-02-29] MEDS: oxyCODONE SR 10 mg TAB (*) PO SCH ×2 (09:31→20:23)
[2020-02-29] MEDS: CALCITRIOL 0.25 MG PO SCH (12:53)
[2020-02-29] MEDS: lamoTRIgine 25 mg TAB (*) PO SCH (12:53)
[2020-02-29] MEDS: Fluticasone NASAL SPRAY 50MCG 16 gm SPRAY BTL INTRANASAL SCH (12:54)
[2020-02-29] MEDS: Calcium Carb 1250 mg TAB (500 mg elemental calcium) PO SCH (12:55)
[2020-02-29] MEDS: Collagenase 250 units/gm OINT 1 tube TOPICAL SCH (12:57)
[2020-03-01] MEDS: Insulin LISPRO 100 units/ml(*) SUBCUT SCH (07:54)
[2020-03-01 08:33] VITALS: BP 133/62
[2020-03-01] MEDS: Collagenase 250 units/gm OINT 1 tube TOPICAL SCH (09:31)
[2020-03-01] MEDS: CALCITRIOL 0.25 MG PO SCH (09:44)
[2020-03-01] MEDS: oxyCODONE SR 10 mg TAB (*) PO SCH (09:45)
[2020-03-01] MEDS: Calcium Carb 1250 mg TAB (500 mg elemental calcium) PO SCH (09:45)
[2020-03-01] MEDS: Fluticasone NASAL SPRAY 50MCG 16 gm SPRAY BTL INTRANASAL SCH (09:51)
[2020-03-01] MEDS: INSULIN ISOPHANE 100 UNIT/ML SUBCUT SCH (09:51)
== END 2020-03-01 11:10 | DRG 947 ==
LOC: MEDTELE 14:18
PROVIDERS: ADMIT Internal Medicine; ATTEND Internal Medicine

== ENCOUNTER 2020-08-27 17:50 | Inpatient (IN) ==
[2020-08-27 18:28] LABS: ABS Monocytes 0.5 10^3/ul (0-0.8); ABS Neutrophils 8.6 10^3/ul (1.5-7.7); Hematocrit 40 % (35-47); Lymphocyte % 9.8 %; Mean Corpuscular HGB Conc 33 g/dL (31-36); Mean Corpuscular Hemoglobin 28 pg (27-31); Mean Corpuscular Volume 85 fL (80-97); Mean Platelet Volume 7.7 fL (7.4-10.4); Platelet Count 453 10^3/uL (150-450); Red Blood Count 4.66 10^6 /uL (3.70-4.87); Red Cell Distribution Width 20 % (10-15); White Blood Count 10.1 10^3/uL (3.5-10.8)
[2020-08-27 18:47] LABS: ALT 25 U/L (7-52); AST 49 U/L (13-39); Albumin 3.6 g/dL (3.2-5.2); Alkaline Phosphatase 146 U/L (34-104); Blood Urea Nitrogen 48 mg/dL (6-24); CO2 Carbon Dioxide 23 mmol/L (22-32); Calcium 8.8 mg/dL (8.6-10.3); Chloride 96 mmol/L (101-111); EGFR African American 6.1 (>60); Globulin 3.6 g/dL (2-4); Glucose 312 mg/dL (70-100); Magnesium 2.3 mg/dL (1.9-2.7); Sodium 139 mmol/L (135-145); Total Protein 7.2 g/dL (6.4-8.9)
[2020-08-27 18:48] LABS: Anion Gap 20 mmol/L (2-11); Potassium 5.2 mmol/L (3.5-5.0)
[2020-08-27 18:52] LABS: Troponin I 0.09 ng/mL (<0.03)
[2020-08-27 19:36] LABS: TSH Ultra Thyroid Stim Horm 1.45 mcIU/mL (0.34-5.60)
[2020-08-27] MEDS ORDERED: Labetalol IV 5 MG/ML 20 ml VIAL IV PUSH ONE ×2 (20:34→22:59)
[2020-08-27 20:38] LABS: INR 1.15 (0.82-1.09)
[2020-08-27 22:08] LABS: C Reactive Protein 5.18 mg/L (<8.01)
[2020-08-27] MEDS ORDERED: Labetalol IV 5 MG/ML 20 ml VIAL IV PUSH PRN (22:16)
[2020-08-28] MEDS ORDERED: Dextrose 50% Syringe 50 ml 25 GM/50 ML SYRINGE IV PUSH PRN (00:21)
[2020-08-28] MEDS: metroNIDAZOLE IV 500 MG/100ML 500 MG/100 ML BAG IVPB SCH ×4 (01:25→20:57)
[2020-08-28 01:52] LABS: Troponin I 0.09 ng/mL (<0.03)
[2020-08-28] MEDS: cefTRIAXone 1 gm/50 mL NS BAG 1 GM/50 ML BAG IVPB SCH (03:15)
[2020-08-28 06:34] LABS: ABS Basophils 0.1 10^3/ul (0-0.2); ABS Lymphocytes 1.6 10^3/ul (1.0-4.8); ABS Monocytes 1.3 10^3/ul (0-0.8); ABS Neutrophils 6.4 10^3/ul (1.5-7.7); Eosinophil % 0.5 %; Hematocrit 37 % (35-47); Hemoglobin 11.8 g/dL (12.0-16.0); Lymphocyte % 16.9 %; Mean Corpuscular HGB Conc 32 g/dL (31-36); Mean Corpuscular Hemoglobin 28 pg (27-31); Mean Corpuscular Volume 86 fL (80-97); Mean Platelet Volume 7.7 fL (7.4-10.4); Platelet Count 304 10^3/uL (150-450); Red Blood Count 4.27 10^6 /uL (3.70-4.87); Red Cell Distribution Width 20 % (10-15); White Blood Count 9.4 10^3/uL (3.5-10.8)
[2020-08-28 06:51] LABS: BUN/Creatinine Ratio 6.2 (8-20); Calcium 8.2 mg/dL (8.6-10.3); EGFR African American 5.7 (>60); EGFR Non-African American 4.7 (>60); Potassium 5.2 mmol/L (3.5-5.0)
[2020-08-28] MEDS ORDERED: Sodium Polystyrene ORAL.SUSP 15 GM/60 ML BTL PO ONE (08:24)
[2020-08-28] MEDS: Calcium (OSCAL) 500 mg TAB PO SCH (08:33)
[2020-08-28] MEDS: Multivitamins/Minerals TAB PO SCH (08:34)
[2020-08-28] MEDS: Isosorbide Mononit ER 30mg TAB PO SCH (08:34)
[2020-08-28] MEDS ORDERED: Heparin 1,000 UNIT/ML 10 ml (10,000 UNITS) CATHLAB/DIALYSIS DIALYSIS ONE (15:00)
[2020-08-29] MEDS: metroNIDAZOLE IV 500 MG/100ML 500 MG/100 ML BAG IVPB SCH ×5 (00:38→23:41)
[2020-08-29] MEDS: cefTRIAXone 1 gm/50 mL NS BAG 1 GM/50 ML BAG IVPB SCH (00:38)
[2020-08-29] MEDS ORDERED: Labetalol IV 5 MG/ML 20 ml VIAL IV PUSH PRN (02:13)
[2020-08-29 05:44] LABS: Hepatitis B Surface Ab Not Immune (Immune)
[2020-08-29 08:50] LABS: ABS Basophils 0.1 10^3/ul (0-0.2); ABS Eosinophils 0.1 10^3/ul (0-0.6); ABS Lymphocytes 1.4 10^3/ul (1.0-4.8); Eosinophil % 0.8 %; Hematocrit 33 % (35-47); Hemoglobin 10.9 g/dL (12.0-16.0); Lymphocyte % 13.4 %; Mean Corpuscular HGB Conc 33 g/dL (31-36); Mean Corpuscular Hemoglobin 28 pg (27-31); Mean Corpuscular Volume 85 fL (80-97); Mean Platelet Volume 7.7 fL (7.4-10.4); Platelet Count 277 10^3/uL (150-450); Red Cell Distribution Width 20 % (10-15); White Blood Count 10.6 10^3/uL (3.5-10.8)
[2020-08-29 09:12] LABS: BUN/Creatinine Ratio 5.4 (8-20); Calcium 7.8 mg/dL (8.6-10.3); EGFR African American 7.9 (>60); EGFR Non-African American 6.5 (>60); Phosphorus 5.3 mg/dL (2.5-5.0); Potassium 4.7 mmol/L (3.5-5.0)
[2020-08-29] MEDS: Isosorbide Mononit ER 30mg TAB PO SCH (09:46)
[2020-08-29] MEDS: Calcium (OSCAL) 500 mg TAB PO SCH (09:47)
[2020-08-29] MEDS: Multivitamins/Minerals TAB PO SCH (09:48)
[2020-08-29] MEDS: oxyCODONE/Acetamin 5/325 mg TAB PO PRN ×2 (17:10→23:50)
[2020-08-29] MEDS ORDERED: Cefepime 1 GM in Dextrose 1 GM/50 ML BAG IV SCH (18:00)
[2020-08-30] MEDS: oxyCODONE/Acetamin 5/325 mg TAB PO PRN ×2 (05:59→21:52)
[2020-08-30 07:10] LABS: BUN/Creatinine Ratio 5.6 (8-20); Calcium 7.7 mg/dL (8.6-10.3); EGFR African American 6.4 (>60); EGFR Non-African American 5.3 (>60); Potassium 4.9 mmol/L (3.5-5.0)
[2020-08-30] MEDS: Isosorbide Mononit ER 30mg TAB PO SCH (09:31)
[2020-08-30] MEDS: Calcium (OSCAL) 500 mg TAB PO SCH (09:31)
[2020-08-30] MEDS: Multivitamins/Minerals TAB PO SCH (09:32)
[2020-08-30] MEDS: metroNIDAZOLE IV 500 MG/100ML 500 MG/100 ML BAG IVPB SCH (09:40)
[2020-08-30 11:51] LABS: Hepatitis B Surface Antigen Nonreactive (Nonreactive)
[2020-08-30] MEDS ORDERED: Heparin 1,000 UNIT/ML 10 ml (10,000 UNITS) CATHLAB/DIALYSIS IV ONE (13:00)
[2020-08-30] MEDS ORDERED: Heparin 1,000 UNIT/ML 10 ml (10,000 UNITS) CATHLAB/DIALYSIS DIALYSIS ONE (13:00)
[2020-08-30 13:26] LABS: Hepatitis B Surface Ab Not Immune (Immune)
[2020-08-30] MEDS: Amoxicillin/Clavul 500/125 TAB (Augmentin 500 mg tab) PO SCH (21:50)
[2020-08-31] MEDS: oxyCODONE/Acetamin 5/325 mg TAB PO PRN ×3 (05:50→22:25)
[2020-08-31 06:32] LABS: Calcium 8.2 mg/dL (8.6-10.3); EGFR African American 6.6 (>60); EGFR Non-African American 5.5 (>60); Potassium 4.5 mmol/L (3.5-5.0)
[2020-08-31] MEDS ORDERED: Heparin 1,000 UNIT/ML 10 ml (10,000 UNITS) CATHLAB/DIALYSIS DIALYSIS ONE (09:00)
[2020-08-31] MEDS: Multivitamins/Minerals TAB PO SCH (12:56)
[2020-08-31] MEDS: Calcium (OSCAL) 500 mg TAB PO SCH (12:56)
[2020-08-31] MEDS: Isosorbide Mononit ER 30mg TAB PO SCH (12:56)
[2020-08-31] MEDS: Amoxicillin/Clavul 500/125 TAB (Augmentin 500 mg tab) PO SCH (22:31)
[2020-09-01] MEDS: Isosorbide Mononit ER 30mg TAB PO SCH (10:01)
[2020-09-01] MEDS: Multivitamins/Minerals TAB PO SCH (10:02)
[2020-09-01] MEDS: Calcium (OSCAL) 500 mg TAB PO SCH (10:02)
[2020-09-01] MEDS: oxyCODONE/Acetamin 5/325 mg TAB PO PRN ×2 (13:16→21:48)
[2020-09-01] MEDS: Amoxicillin/Clavul 500/125 TAB (Augmentin 500 mg tab) PO SCH (21:47)
[2020-09-02] MEDS: Multivitamins/Minerals TAB PO SCH (09:08)
[2020-09-02] MEDS: Isosorbide Mononit ER 30mg TAB PO SCH (09:08)
[2020-09-02] MEDS: Calcium (OSCAL) 500 mg TAB PO SCH (09:09)
[2020-09-02] MEDS: oxyCODONE/Acetamin 5/325 mg TAB PO PRN ×2 (09:09→22:45)
[2020-09-02] MEDS: Cefepime 1 GM in Dextrose 1 GM/50 ML BAG IV SCH (10:56)
[2020-09-02 11:29] LABS: BUN/Creatinine Ratio 5.6 (8-20); EGFR African American 5.1 (>60); EGFR Non-African American 4.2 (>60); Magnesium 2.2 mg/dL (1.9-2.7); Phosphorus 7.2 mg/dL (2.5-5.0)
[2020-09-02 11:34] LABS: Potassium 5.3 mmol/L (3.5-5.0)
[2020-09-02] MEDS ORDERED: Sodium Polystyrene ORAL.SUSP 15 GM/60 ML BTL PO ONE (15:53)
[2020-09-03 08:23] LABS: BUN/Creatinine Ratio 5.3 (8-20); Calcium 7.9 mg/dL (8.6-10.3); EGFR African American 4.2 (>60); EGFR Non-African American 3.5 (>60)
[2020-09-03 08:25] LABS: Potassium 5.3 mmol/L (3.5-5.0)
[2020-09-03] MEDS: Cefepime 1 GM in Dextrose 1 GM/50 ML BAG IV SCH (10:23)
[2020-09-03] MEDS: Multivitamins/Minerals TAB PO SCH (10:27)
[2020-09-03] MEDS: Isosorbide Mononit ER 30mg TAB PO SCH (10:27)
[2020-09-03] MEDS: Calcium (OSCAL) 500 mg TAB PO SCH (10:27)
[2020-09-03] MEDS ORDERED: Heparin 1,000 UNIT/ML 10 ml (10,000 UNITS) CATHLAB/DIALYSIS DIALYSIS ONE (15:30)
[2020-09-03] MEDS: oxyCODONE/Acetamin 5/325 mg TAB PO PRN (22:33)
[2020-09-04] MEDS: Isosorbide Mononit ER 30mg TAB PO SCH ×2 (06:13→07:15)
[2020-09-04] MEDS: oxyCODONE/Acetamin 5/325 mg TAB PO PRN (06:45)
[2020-09-04 06:49] LABS: Calcium 8.1 mg/dL (8.6-10.3); EGFR African American 7.3 (>60); Potassium 4.2 mmol/L (3.5-5.0)
[2020-09-04] MEDS ORDERED: Albumin Human 25% 12.5 GM/50 ML BTL IV PRN (07:07)
[2020-09-04] MEDS ORDERED: Heparin 1,000 UNIT/ML 10 ml (10,000 UNITS) CATHLAB/DIALYSIS DIALYSIS ONE (08:00)
[2020-09-04 11:46] VITALS: BP 143/66
[2020-09-04] MEDS: Calcium (OSCAL) 500 mg TAB PO SCH (12:49)
[2020-09-04] MEDS: Multivitamins/Minerals TAB PO SCH (12:49)
[2020-09-04] MEDS: Cefepime 1 GM in Dextrose 1 GM/50 ML BAG IV SCH (12:50)
== END 2020-09-04 18:30 | disposition home health service (06) ==
LOC: ED 17:50 → MEDTELE 21:49 → MED 08-28 20:24
PROVIDERS: ADMIT Internal Medicine; ATTEND Internal Medicine

== ENCOUNTER 2021-02-13 22:01 | Inpatient (IN) ==
[2021-02-13] MEDS ORDERED: Heparin 5000 UNITS/ML 1 mL VIAL IV SCH (23:00)
[2021-02-13] MEDS ORDERED: Heparin DRIP 25,000 UNITS BAG 25,000 UNITS/500 ML BAG IV SCH (23:00)
[2021-02-13 23:11] LABS: ABS Basophils 0.1 10^3/ul (0-0.2); ABS Eosinophils 0.1 10^3/ul (0-0.6); ABS Lymphocytes 1.1 10^3/ul (1.0-4.8); ABS Monocytes 1.1 10^3/ul (0-0.8); ABS Neutrophils 6.8 10^3/ul (1.5-7.7); Eosinophil % 0.7 %; Hematocrit 30 % (35-47); Hemoglobin 9.3 g/dL (12.0-16.0); Lymphocyte % 12.3 %; Mean Corpuscular HGB Conc 32 g/dL (31-36); Mean Corpuscular Hemoglobin 26 pg (27-31); Mean Corpuscular Volume 82 fL (80-97); Mean Platelet Volume 8.3 fL (7.4-10.4); Platelet Count 510 10^3/uL (150-450); Red Blood Count 3.61 10^6 /uL (3.70-4.87); Red Cell Distribution Width 17 % (10-15); White Blood Count 9.1 10^3/uL (3.5-10.8)
[2021-02-13 23:26] LABS: Albumin 3.6 g/dL (3.2-5.2); Albumin/Globulin Ratio 0.8 (1-3); Calcium 9.1 mg/dL (8.6-10.3); EGFR African American 8.8 (>60); EGFR Non-African American 7.3 (>60); Globulin 4.5 g/dL (2-4); Potassium 4.2 mmol/L (3.5-5.0); Total Bilirubin 0.3 mg/dL (0.2-1.0); Total Protein 8.1 g/dL (6.4-8.9)
[2021-02-14] MEDS ORDERED: Fluticasone NASAL SPRAY 50MCG 16 gm SPRAY BTL INTRANASAL PRN (00:15)
[2021-02-14] MEDS ORDERED: Dextrose 50% Syringe 50 ml 25 GM/50 ML SYRINGE IV PUSH PRN (00:39)
[2021-02-14 02:49] LABS: ABS Basophils 0.1 10^3/ul (0-0.2); ABS Eosinophils 0.1 10^3/ul (0-0.6); ABS Lymphocytes 1.1 10^3/ul (1.0-4.8); ABS Monocytes 0.8 10^3/ul (0-0.8); ABS Neutrophils 6.4 10^3/ul (1.5-7.7); Eosinophil % 0.7 %; Hematocrit 29 % (35-47); Hemoglobin 9.1 g/dL (12.0-16.0); Lymphocyte % 12.7 %; Mean Corpuscular HGB Conc 31 g/dL (31-36); Mean Corpuscular Hemoglobin 26 pg (27-31); Mean Corpuscular Volume 83 fL (80-97); Mean Platelet Volume 7.8 fL (7.4-10.4); Platelet Count 461 10^3/uL (150-450); Red Blood Count 3.54 10^6 /uL (3.70-4.87); Red Cell Distribution Width 17 % (10-15); White Blood Count 8.5 10^3/uL (3.5-10.8)
[2021-02-14] MEDS: oxyCODONE/Acetamin 5/325 mg TAB PO PRN (03:03)
[2021-02-14 06:06] LABS: ABS Basophils 0.1 10^3/ul (0-0.2); ABS Eosinophils 0.1 10^3/ul (0-0.6); ABS Lymphocytes 1.1 10^3/ul (1.0-4.8); ABS Monocytes 1.2 10^3/ul (0-0.8); Eosinophil % 1.3 %; Hematocrit 28 % (35-47); Hemoglobin 8.7 g/dL (12.0-16.0); Lymphocyte % 12.9 %; Mean Corpuscular HGB Conc 32 g/dL (31-36); Mean Corpuscular Hemoglobin 26 pg (27-31); Mean Corpuscular Volume 82 fL (80-97); Mean Platelet Volume 7.8 fL (7.4-10.4); Platelet Count 454 10^3/uL (150-450); Red Blood Count 3.34 10^6 /uL (3.70-4.87); Red Cell Distribution Width 17 % (10-15); White Blood Count 8.4 10^3/uL (3.5-10.8)
[2021-02-14] MEDS ORDERED: Iodixanol 320 (CONTRAST) 100 ML SDV ONE (10:41)
[2021-02-14] MEDS ORDERED: Lidocaine 1% VIAL 10 MG/ML VIAL ONE (10:41)
[2021-02-14] MEDS ORDERED: Heparin 2 UNITS/ML IVPREMIX 2,000 UNIT/1,000 ML BAG IV ONE (10:42)
[2021-02-14] MEDS ORDERED: Midazolam 5 mg/5 ml VIAL 1 mg/ml 5 ml VIAL (5 mg) ONE ×2 (10:58→13:27)
[2021-02-14] MEDS ORDERED: fentaNYL 100 mcg/2 ml 50 MCG/ML VIAL ONE ×3 (10:59→13:27)
[2021-02-14] MEDS ORDERED: Heparin 1,000 UNIT/ML 10 ml (10,000 UNITS) CATHLAB/DIALYSIS ONE (11:02)
[2021-02-14] MEDS ORDERED: Metoprolol Tartrate 5 mg VIAL 5 ml VIAL (1 mg/ml) ONE (11:06)
[2021-02-14] MEDS ORDERED: Clindamycin 600 MG/D5W BAG IV ONE (12:00)
[2021-02-14] MEDS ORDERED: Heparin 2 UNITS/ML IVPREMIX 1,000 UNIT/500 ML BAG IV ONE (13:23)
[2021-02-14] MEDS: Calcium (OSCAL) 500 mg TAB PO SCH (14:39)
[2021-02-14] MEDS: Isosorbide Mononit ER 30mg TAB PO SCH (14:42)
[2021-02-14] MEDS: Vitamin THERAPEUTIC TAB PO SCH (14:42)
[2021-02-14] MEDS ORDERED: Sulfamethox/Trimethoprim SS TAB 400/80 mg PO SCH (17:00)
[2021-02-14 18:22] LABS: ABS Basophils 0.1 10^3/ul (0-0.2); ABS Eosinophils 0.1 10^3/ul (0-0.6); ABS Lymphocytes 0.9 10^3/ul (1.0-4.8); ABS Monocytes 0.8 10^3/ul (0-0.8); ABS Neutrophils 8.7 10^3/ul (1.5-7.7); Activated Partial Thrombo Time 33.7 seconds (26.0-38.0); Eosinophil % 0.6 %; Hematocrit 30 % (35-47); Hemoglobin 9.6 g/dL (12.0-16.0); INR 1.26 (0.82-1.09); Lymphocyte % 8.3 %; Mean Corpuscular HGB Conc 32 g/dL (31-36); Mean Corpuscular Hemoglobin 26 pg (27-31); Mean Corpuscular Volume 81 fL (80-97); Mean Platelet Volume 8.1 fL (7.4-10.4); Platelet Count 484 10^3/uL (150-450); Red Blood Count 3.66 10^6 /uL (3.70-4.87); Red Cell Distribution Width 17 % (10-15); White Blood Count 10.5 10^3/uL (3.5-10.8)
[2021-02-14 18:38] LABS: EGFR Non-African American 5.8 (>60)
[2021-02-14] MEDS ORDERED: Insulin NPH 100 units/ml SUBCUT SCH (21:00)
[2021-02-14] MEDS: Heparin 5000 UNITS/ML 1 mL VIAL SUBCUT SCH (23:46)
[2021-02-15 05:19] LABS: ABS Lymphocytes 0.8 10^3/ul (1.0-4.8); ABS Monocytes 0.9 10^3/ul (0-0.8); ABS Neutrophils 7.7 10^3/ul (1.5-7.7); Eosinophil % 0.3 %; Hematocrit 25 % (35-47); Lymphocyte % 8.2 %; Mean Corpuscular HGB Conc 32 g/dL (31-36); Mean Corpuscular Hemoglobin 26 pg (27-31); Mean Corpuscular Volume 81 fL (80-97); Platelet Count 469 10^3/uL (150-450); Red Blood Count 3.06 10^6 /uL (3.70-4.87); Red Cell Distribution Width 17 % (10-15); White Blood Count 9.5 10^3/uL (3.5-10.8)
[2021-02-15 05:42] LABS: Calcium 8.6 mg/dL (8.6-10.3); EGFR African American 6.2 (>60); EGFR Non-African American 5.1 (>60)
[2021-02-15 05:55] LABS: Potassium 5.3 mmol/L (3.5-5.0)
[2021-02-15] MEDS: Calcium (OSCAL) 500 mg TAB PO SCH (09:09)
[2021-02-15] MEDS: Vitamin THERAPEUTIC TAB PO SCH (09:11)
[2021-02-15] MEDS: oxyCODONE/Acetamin 5/325 mg TAB PO PRN (09:11)
[2021-02-15] MEDS: Heparin 5000 UNITS/ML 1 mL VIAL SUBCUT SCH (09:12)
[2021-02-15] MEDS: Isosorbide Mononit ER 30mg TAB PO SCH (09:13)
[2021-02-15 11:24] LABS: C Reactive Protein 141.4 mg/L (<8.01)
[2021-02-15 11:28] LABS: Hepatitis B Surface Ab Not Immune (Immune)
[2021-02-15] MEDS: Heparin 1,000 UNIT/ML 10 ml (10,000 UNITS) CATHLAB/DIALYSIS DIALYSIS ONE ×4 (13:30→16:44)
[2021-02-15 18:25] VITALS: BP 177/68
[2021-02-15] MEDS ORDERED: Sulfamethox/Trimethoprim SS TAB 400/80 mg PO SCH (21:00)
[2021-02-17 02:08] LABS: Hepatitis B Surface Antigen Nonreactive (Nonreactive)
[2021-02-17] MEDS ORDERED: cloNIDine 0.3 MG PATCH 0.3 MG/24 HR 7 DAY PATCH TRANSDERM SCH (09:00)
== END 2021-02-15 18:30 | disposition home or self-care (01) | DRG 252 ==
LOC: ED 22:01 → MEDTELE 02-14 00:04
PROVIDERS: ADMIT Internal Medicine; ATTEND Internal Medicine